=== PATIENT | male | born 1940 | race Caucasian/White ===

== ENCOUNTER 2020-07-30 10:32 | Emergency (ER) | payer MEDICARE, MEDICAID, SELFPAY ==
--- NOTE | 2020-07-30 | CT_ITS ---
EXAMINATION: CT BRAIN CLINICAL INFORMATION: Fall, trauma, headache COMPARISON: Report CT had noncontrast 04/10/2020, images unavailable. TECHNIQUE: Contiguous axial imaging was performed from the skull base to vertex without intravenous administration of contrast. Additional 2-D coronal and sagittal reformatted images are generated on the CT workstation and uploaded to PACS. DOSE LOWERING TECHNIQUES: This CT examination was performed using dose optimization techniques as appropriate, variously including the following: *Automated exposure control *Adjustment of mA and/or kV according to patient size (this includes techniques or standardized protocols for targeted exams where dose is matched to indication/reason for exam; i.e. extremities or head) *Use of iterative reconstruction technique DLP: 751 mGy-cm FINDINGS: There is no intracranial hemorrhage, hematoma, or extra-axial fluid collection. There is mild prominence of the ventricles along with prominent cortical sulci and fissures and cisterns consistent with atrophic changes as noted on prior report. There is no mass effect or edema. The [place]-white matter differentiation appears symmetric. There is no visible acute territorial infarct or mass lesion. The calvarium appears intact. There is no pneumocephalus or orbital emphysema. The visualized sinuses and middle ears and mastoid air cells show no significant mucosal thickening. There are no air-fluid levels. IMPRESSION: No acute intracranial abnormality.
--- NOTE | 2020-07-30 | CT_ITS ---
EXAMINATION: CT CERVICAL SPINE CLINICAL INFORMATION: Fall, trauma, pain COMPARISON: CT cervical spine noncontrast 04/10/2020, report only, images unavailable. TECHNIQUE: Multidetector volumetric CT imaging of the cervical spine is performed without contrast in the axial plane. Additional 2D reformatted coronal and sagittal images are generated on the CT workstation and uploaded to PACS. DOSE LOWERING TECHNIQUES: This CT examination was performed using dose optimization techniques as appropriate, variously including the following: *Automated exposure control *Adjustment of mA and/or kV according to patient size (this includes techniques or standardized protocols for targeted exams where dose is matched to indication/reason for exam; i.e. extremities or head) *Use of iterative reconstruction technique DLP: 633 mGy-cm FINDINGS: There is no vertebral compression fracture, fracture line, spondylolisthesis, or prevertebral soft tissue swelling. The craniocervical junction appears normal. The odontoid appears intact. There is normal cervical lordosis. There are scattered degenerative changes again noted including degenerative changes between anterior arch C1 and the dens and multilevel vertebral body spurring greatest at C4 through C6-C7. There is variable bilateral facet degeneration. There is no apical pneumothorax. IMPRESSION: 1. No acute bony abnormality or prevertebral soft tissue swelling. 2. Multilevel degenerative vertebral spurring and facet degeneration.
[2020-07-30 11:26] VITALS: BP 118/54; PULSE 70; RESP 15; TEMP 37.1; O2SAT 96; BMI 35.8
--- NOTE | 2020-07-30 11:43 | ED_ITS ---
HPI - Fall General Chief Complaint: Fall Stated Complaint: HEAD INJURY, FALL Time Seen by Provider: 07/30/20 11:40 Source: patient and family History of Present Illness HPI Narrative: 80 y/o male with history of DM2, neuropathy, CAD, HTN, presenting s/p fall after he stood up too fast. Hit his head, no LOC. +headache and neck pain. Related Data Allergies Allergy/AdvReac Type Severity Reaction Status Date / Time codeine [CODEINE] Allergy Unknown UNKNOWN Unverified 07/16/20 16:18 Codeine Phosphate Allergy Unknown Uncoded 06/10/20 00:00 lisinopril Allergy Unknown Uncoded 06/10/20 00:00 Review of Systems Constitutional: Constitutional: Denies body ache(s), Denies chills, Denies fatigue, Denies fever(s) and Reports headache(s) Eyes: Eyes: Reports no additional eye complaints ENT: Denies vertigo, Reports headache(s), Reports hearing loss (chronically ) and Reports neck pain Cardiovascular: Cardiovascular: Denies chest pain at rest, Denies chest pain with activity, Denies syncope, Denies rapid heart rate, Reports pedal edema (chronically ), Reports leg edema (chronically ) and Denies dyspnea Respiratory: Respiratory: Denies dyspnea Gastrointestinal: Gastrointestinal: Denies nausea and Denies vomiting Genitourinary: Genitourinary: Denies difficulty urinating and Denies dysuria Musculoskeletal: Musculoskeletal: Reports neck pain and Denies numbness Neurologic: Denies confusion, Denies vertigo, Denies syncope, Reports headach e(s), Denies focal weakness, Denies memory loss and Denies numbness Psychiatric: Psychiatric: Denies confusion and Denies memory loss Endocrine: Endocrine: Denies fatigue Hematologic/Lymphatic: Hematologic/Lymphatic: Denies easy bruising PMFSH Past Medical History Attestation statement: The following information was validated with the patient. Medical History BPH (benign prostatic hyperplasia) CKD (chronic kidney disease) Coronary stent patent Diabetes mellitus, type 2 Dyslipidemia Hypertension Neuropathy associated with endocrine disorder Social History Social History Advance Directives: No Advance Directives Information Provided: No Physical Exam Vital Signs and I&O and Narrative: Vital Signs and I&O: Vital Signs Temp 98.7 F 07/30/20 11:26 Pulse 67 07/30/20 15:08 Resp 14 07/30/20 13:07 BP 122/65 07/30/20 15:08 Pulse Ox 98 07/30/20 13:07 Intake & Output 07/29/20 07/30/20 07/30/20 18:59 06:59 18:59 Weight 100.698 kg Body Mass Index 35.8 Const: General: healthy appearing, comfortable and no acute distress; No confusion Nutritional Appearance: average body habitus Orientation/consciousness: No confusion HENMT: Head: Yes normal to inspection, Yes No palpable skull fracture present, Yes normocephalic and Yes atraumatic Eyes: General: appearance normal, both eyes and all related structures Neck: Neck: Yes normal visual inspection and Yes full ROM Chest: Chest palpation & inspection: normal inspection of the chest and normal palpation of entire chest wall Resp: Effort & Inspection: normal respiratory effort and able to speak in complete sentences Auscultation: clear to auscultation bilaterally Cardio: Rate: regular rate Rhythm: regular rhythm Heart sounds: S1 normal heart sound present and S2 normal heart sound present GI: Inspection: Yes normal to inspection Auscultation: normal bowel sounds Skin: General skin exam: no rashes or lesions noted Trauma: no lacerations or abrasions Neuro: General: No confusion Course Course Hospital Course: CT head/neck done. +Orthostatic VS with feeling of dizziness. Will give 1L IVF and reassess. Awating labs and imaging results Reevaluation(s) Reevaluation #1: CT Head/neck showed no traumatic injury. H/H and renal function at baseline. Getting IVF now and repeat Orthostatic VS. Time: 13:40 Reevaluation #2: s/p 1L IVF. Orthostatics improved. Patient feels improved. He would like to go home. He is no longer dizzy when he stands and he is stable for discharge. Time: 15:32 MDM - Fall Differential Diagnosis Differential diagnosis: Likely fracture and concussion without loss of consciousness Medical Records Attestation: I reviewed the patient's medical records. Lab Data Result diagrams: 07/30/20 12:55 07/30/20 12:55 Labs: Lab Results 07/30/20 07/30/20 07/30/20 Range/Units 12:52 12:55 12:55 WBC 7.3 (4.8-10.8) X10*3/uL RBC 3.48 L (4.60-5.80) X10*6/uL Hgb 11.0 L (14.0-18.0) g/dl Hct 33.1 L (42-52) % MCV 95.1 (80-98) fL MCH 31.6 (27.0-33.0) pg MCHC 33.2 (31.0-36.0) g/dl RDW 12.7 (11.0-16.0) % Plt Count 262 (160-400) X10*3/uL MPV 10.0 (9.4-12.4) fL Immature Gran % (Auto) 0.3 (0.0-0.4) % Neut % (Auto) 71.1 (45-73) % Lymph % (Auto) 14.6 L (20-40) % [place] % (Auto) 11.1 H (2-11) % Eos % (Auto) 2.2 (0-4) % Baso % (Auto) 0.7 (0-2) % Neut # (Auto) 5.2 (2.0-8.3) X10*3/uL Lymph # (Auto) 1.1 L (1.2-4.9) X10*3/uL [place] # (Auto) 0.8 (0.1-1.2) X10*3/uL Eos # (Auto) 0.2 (0.0-0.4) X10*3/uL Baso # (Auto) 0.1 (0.0-0.2) X10*3/uL Abs Immat Gran (auto) 0.02 (0.00-0.03) X10*3/uL Absolute Nucleated RBC 0.000 (0.0-0.012) X10*3/uL Nucleated RBC % (auto) 0.0 (0.0-0.2) /100WBC PT (10.8-13.0) SEC INR (0.9-1.1) APTT (24.1-38.0) SEC Sodium 139 (135-145) mmol/L Potassium 4.1 (3.3-5.1) mmol/l Chloride 100 (96-108) mmol/L Carbon Dioxide 32 H (22-29) mmol/L Anion Gap 11 L (12-20) BUN 52 H (9-16) mg/dL Creatinine 1.50 H (0.5-1.4) mg/dL Estim Creat Clear Calc 44.3 Estimated GFR 45 Random Glucose 109 (60-115) mg/dL Calcium 9.4 (8.4-10.2) mg/dL B-Natriuretic Peptide (<100) pg/mL Urine Color YELLOW Urine Appearance CLEAR Urine pH 6.5 (5.0-8.0) Ur Specific [place] 1.010 (1.005-1.025) Urine Protein NEG (NEG-TRACE) MG/DL Urine Glucose (UA) NEG (NEG) MG/DL Urine Ketones NEG (NEG) MG/DL Urine Blood TRACE (NEG) Urine Nitrite NEG (NEG) Ur Leukocyte Esterase NEG (NEG) Urine RBC 1-4 (0) /HPF Urine WBC 0-2 (0-4) /HPF Ur Squamous Epith Cells 1+ /LPF Urine Bacteria NONE /LPF 07/30/20 07/30/20 Range/Units 12:55 12:56 WBC (4.8-10.8) X10*3/uL RBC (4.60-5.80) X10*6/uL Hgb (14.0-18.0) g/dl Hct (42-52) % MCV (80-98) fL MCH (27.0-33.0) pg MCHC (31.0-36.0) g/dl RDW (11.0-16.0) % Plt Count (160-400) X10*3/uL MPV (9.4-12.4) fL Immature Gran % (Auto) (0.0-0.4) % Neut % (Auto) (45-73) % Lymph % (Auto) (20-40) % [place] % (Auto) (2-11) % Eos % (Auto) (0-4) % Baso % (Auto) (0-2) % Neut # (Auto) (2.0-8.3) X10*3/uL Lymph # (Auto) (1.2-4.9) X10*3/uL [place] # (Auto) (0.1-1.2) X10*3/uL Eos # (Auto) (0.0-0.4) X10*3/uL Baso # (Auto) (0.0-0.2) X10*3/uL Abs Immat Gran (auto) (0.00-0.03) X10*3/uL Absolute Nucleated RBC (0.0-0.012) X10*3/uL Nucleated RBC % (auto) (0.0-0.2) /100WBC PT 13.0 (10.8-13.0) SEC INR 1.1 (0.9-1.1) APTT 33.7 (24.1-38.0) SEC Sodium (135-145) mmol/L Potassium (3.3-5.1) mmol/l Chloride (96-108) mmol/L Carbon Dioxide (22-29) mmol/L Anion Gap (12-20) BUN (9-16) mg/dL Creatinine (0.5-1.4) mg/dL Estim Creat Clear Calc Estimated GFR Random Glucose (60-115) mg/dL Calcium (8.4-10.2) mg/dL B-Natriuretic Peptide 78 (<100) pg/mL Urine Color Urine Appearance Urine pH (5.0-8.0) Ur Specific [place] (1.005-1.025) Urine Protein (NEG-TRACE) MG/DL Urine Glucose (UA) (NEG) MG/DL Urine Ketones (NEG) MG/DL Urine Blood (NEG) Urine Nitrite (NEG) Ur Leukocyte Esterase (NEG) Urine RBC (0) /HPF Urine WBC (0-4) /HPF Ur Squamous Epith Cells /LPF Urine Bacteria /LPF Imaging Data CT scan - head: Radiologist's impression: no acute intracranial injury CT cervical spine: Radiologist's impression: no traumatic injury to cervical spine Discharge Plan Discharge Clinical Impression: Orthostatic dizziness Patient Disposition: Home, Self-Care Instructions: Lightheadedness (ED) Additional Instructions: Follow up with your Primary Care provider. Your blood work and CT scan of your head and neck were unremarkable. You were likely mildly dehydrated, After you were given IV fluids here you felt improved and your vitals signs with position changes improved. Interventions: ED Discharge Assessment Last Done: 07/30/20 16:16 Discharge Date/Time: 07/30/20 16:17 Print Language: Vincentian
[2020-07-30 12:41] VITALS: BP 125/59; PULSE 68
[2020-07-30 12:43] VITALS: BP 125/53; PULSE 67
[2020-07-30 12:45] VITALS: BP 90/45; PULSE 74
[2020-07-30 13:00] LABS: MANUAL DIFF FLAG NO
[2020-07-30 13:07] VITALS: BP 105/48; PULSE 67; RESP 14; O2SAT 98
[2020-07-30 13:11] LABS: Basophils Absolute Auto 0.1 X10*3/uL (0.0-0.2); Basophils Percent Auto 0.7 % (0-2); Eosinophils Absolute Auto 0.2 X10*3/uL (0.0-0.4); Eosinophils Percent Auto 2.2 % (0-4); Hematocrit 33.1 % (42-52); Imm Gran Abs Auto 0.02 X10*3/uL (0.00-0.03); Imm Gran Pct Auto 0.3 % (0.0-0.4); Lymphocytes Absolute Auto 1.1 X10*3/uL (1.2-4.9); Lymphocytes Percent Auto 14.6 % (20-40); Mean Corpuscular HGB Conc 33.2 g/dl (31.0-36.0); Mean Corpuscular Hemoglobin 31.6 pg (27.0-33.0); Mean Corpuscular Volume 95.1 fL (80-98); Monocytes Absolute Auto 0.8 X10*3/uL (0.1-1.2); Monocytes Percent Auto 11.1 % (2-11); Neutrophils Absolute Auto 5.2 X10*3/uL (2.0-8.3); Neutrophils Percent Auto 71.1 % (45-73); Platelet Count 262 X10*3/uL (160-400); Red Blood Count 3.48 X10*6/uL (4.60-5.80); Red Cell Distribution Width 12.7 % (11.0-16.0); White Blood Count 7.3 X10*3/uL (4.8-10.8)
[2020-07-30 13:16] LABS: Glucose Urine UA NEG (NEG); Leukocyte Esterase Urine NEG (NEG); Nitrite Urine NEG (NEG); PH 6.5 (5.0-8.0); UACC Culture Trigger NO; Urine Blood TRACE (NEG); Urine Ketones NEG (NEG); Urine Protein NEG (NEG-TRACE)
[2020-07-30 13:24] LABS: Appearance Urine CLEAR; Color Urine YELLOW
[2020-07-30 13:32] LABS: Anion Gap 11 (12-20); Blood Urea Nitrogen 52 mg/dL (9-16); Calcium 9.4 mg/dL (8.4-10.2); Carbon Dioxide 32 mmol/L (22-29); Chloride 100 mmol/L (96-108); Creatinine Clr Calc Pharmacy 44.3; Estimated Glomerular Filt Rate 45; Glucose Random 109 mg/dL (60-115); Potassium 4.1 mmol/l (3.3-5.1); Sodium 139 mmol/L (135-145)
[2020-07-30 13:37] LABS: INTERNATIONAL NORM RATIO 1.1 (0.9-1.1)
[2020-07-30 13:39] LABS: Partial Thromboplastin Time 33.7 SEC (24.1-38.0)
[2020-07-30 13:39] LABS: B Type Natriuretic Peptide 78 pg/mL (<100)
[2020-07-30 13:44] LABS: UACC CULT NO
[2020-07-30] MEDS: 0.9 % Sodium Chloride 1,000 ML 999 ML IVCONT (13:48)
[2020-07-30 14:35] LABS: Squamous Epithelial Cell Urine 1+ /LPF; WBC Urine 0-2 /HPF (0-4)
[2020-07-30 15:08] VITALS: BP 122/65; PULSE 67
== END 2020-07-30 16:17 | disposition home or self-care (01) ==
PROVIDERS: Physician Assistant; Emergency Provider Emergency Medicine Emergency Medical Services; PCP Internal Medicine
DX: R42 Dizziness and giddiness (principal); R51.9 Headache, unspecified; I10 Essential (primary) hypertension; E11.40 Type 2 diabetes mellitus with diabetic neuropathy, unspecified; I25.10 Atherosclerotic heart disease of native coronary artery without angina pectoris; Z91.81 History of falling
CPT/HCPCS: 36415; 70450; 72125; 80048; 81003; 81015; 83880; 85025; 85610; 85730; 96360; 99284

== ENCOUNTER 2020-08-02 21:40 | Emergency (ER) | payer MEDICARE, MEDICAID, SELFPAY ==
--- NOTE | 2020-08-02 | CT_ITS ---
EXAMINATION: CT ABDOMEN AND PELVIS WITHOUT CONTRAST CLINICAL INFORMATION: Abdominal pain COMPARISON: CT scan abdomen pelvis 12/13/2018 TECHNIQUE: Multidetector volumetric imaging was performed from the superior aspect of the liver through the pubic symphysis. Sagittal and coronal reformatted images were obtained on the technologist's workstation. This CT examination was performed using dose optimization techniques as appropriate, variously including the following: *Automated exposure control *Adjustment of mA and/or kV according to patient size (this includes techniques or standardized protocols for targeted exams where dose is matched to indication/reason for exam; i.e. extremities or head) *Use of iterative reconstruction technique DLP: 817 mGy-cm FINDINGS: LUNG BASES: The visualized lung bases are unremarkable. There are vascular calcification of coronary arteries and thoracic aorta. There is a small hiatal hernia. LIVER, GALLBLADDER, AND BILIARY TREE: The liver is normal in size, shape, and attenuation. No focal hepatic lesion or biliary ductal dilatation is present. Gallbladder is distended to a length of about 12 cm. There is no edema around the gallbladder. No calcified gallstone evident. There is no bile duct dilatation. PANCREAS: Unremarkable. SPLEEN: Unremarkable. ADRENAL GLANDS: Unremarkable. KIDNEYS AND URETERS: There is no renal or ureteral calculi. There is no hydronephrosis. There is an exophytic cyst at the upper pole of the left kidney measuring 2.9 cm. Density measurement of 2 Hounsfield units. There is a 1 cm exophytic cyst at the midpole the right kidney BLADDER: Unremarkable. GASTROINTESTINAL TRACT: There are scattered diverticula of the colon. There is no diverticulitis. There is no bowel wall thickening /edema. There is no bowel obstruction. There is a moderate volume of stool in the colon. The appendix is normal . The small bowel loops are unremarkable. The stomach is normal. There is small hiatal hernia. ABDOMINAL WALL: No significant hernia is appreciated. LYMPH NODES: Normal. VASCULAR: Extensive vascular calcifications throughout the abdomen and the pelvis. There is no aneurysm. PELVIC VISCERA: Prostate enlarged measuring 6.7 cm transverse. OSSEOUS STRUCTURES: Degenerative spondylosis of the spine. IMPRESSION: No acute abnormality CT scan abdomen pelvis.
[2020-08-02 21:46] VITALS: BP 199/92; PULSE 94; RESP 16; TEMP 37.5; O2SAT 96; BMI 35.8
--- NOTE | 2020-08-02 22:14 | ECG_ITS ---
Test Reason : ABDOMINAL PAIN Blood Pressure : / mmHG Vent. Rate : 092 BPM Atrial Rate : 092 BPM P-R Int : 250 ms QRS Dur : 090 ms QT Int : 388 ms P-R-T Axes : 077 024 056 degrees QTc Int : 479 ms Sinus rhythm with 1st degree A-V block Otherwise normal ECG When compared with ECG of 10-APR-2020 08:57, Nonspecific T wave abnormality is no longer Present Referred By: Rosey Hassan Electronically Signed By:JAZMIN URBANO
[2020-08-02] MEDS: ondansetron HCL 4 MG/2 ML VIAL IVPUSH (22:22)
[2020-08-02 22:23] VITALS: BP 157/81; PULSE 93; O2SAT 100
--- NOTE | 2020-08-02 22:29 | ED_ITS ---
HPI - Nausea/Vomiting/Diarrhea General Chief complaint: Nausea/Vomiting/Diarrhea Stated complaint: VOMITING Time Seen by Provider: 08/02/20 22:14 Source: patient and aerial photograph interpreter History of Present Illness HPI Narrative: This is a 80-year-old male who presents with onset of lower abdominal discomfort that he describes as crampy in nature and then subsequent development of nonbloody diarrhea and a few episodes of nausea with nonbloody / nonbilious vomiting. He denies any associated fevers, chills, urinary pain/ burning / frequency, recent travel, sick contacts. In addition, he denies any surgeries in the abdomen. Related Data Previous Rx's Medication Instructions Recorded ondansetron HCl [Zofran] 4 mg PO Q8H PRN #7 tab 08/03/20 Allergies Allergy/AdvReac Type Severity Reaction Status Date / Time codeine [CODEINE] Allergy Unknown UNKNOWN Unverified 07/16/20 16:18 Codeine Phosphate Allergy Unknown Uncoded 06/10/20 00:00 lisinopril Allergy Unknown Uncoded 06/10/20 00:00 Review of Systems Review of Systems: Pertinent positives and negatives as stated in HPI 10 point review of systems otherwise negative. [facility] Past Medical History Source: nursing notes reviewed Medical History BPH (benign prostatic hyperplasia) CKD (chronic kidney disease) Coronary stent patent Diabetes mellitus, type 2 Dyslipidemia Hypertension Neuropathy associated with endocrine disorder Social History Social History Alcohol intake: current Alcohol intake frequency: holidays/special occasions only Alcohol type: beer Smoking Status: Former smoker Smoked in Last 30 Days: No Use of substances other than those prescribed or required for medical reasons: No Advance Directives: No Advance Directives Information Provided: Yes Physical Exam Vital Signs and I&O and Narrative: Vital Signs and I&O: Vital Signs Temp 99.5 F 08/02/20 21:46 Pulse 93 08/02/20 22:23 Resp 16 08/02/20 21:46 BP 166/70 H 08/03/20 00:50 Pulse Ox 99 08/03/20 00:50 Intake & Output 08/02/20 08/03/20 08/03/20 18:59 06:59 18:59 Output Total 453 / 453 Balance -453 / -453 Urine Output (Aver age ml/kg/hr) 0.37 Weight 100.698 kg Output: Output, Urine Am ount 453 / 453 Body Mass Index 35.8 VITAL SIGNS: Reviewed. GENERAL: Well developed, well nourished, in no acute distress. HEAD: Normocephalic/atraumatic, EYES: PERRLA, EOMI intact without pain, no nystagmus/pallor/icterus noted EARS: Ext canals without abnormality, TMs non-bulging and non-erythematous NOSE: Nares patent bilateral OROPHARYNX: no oral lesions noted, posterior pharynx clear and non-erythematous without noted tonsillar enlargement/erythema/exudates NECK: Supple, no adenopathy LUNGS: Normal breath sounds. No adventitious sounds or accessory muscle use. SpO2<> CARDIOVASCULAR: Regular rate and rhythm without noted murmurs, no JVD And chronic bilateral lower 3+ pitting edema (chronic as per patient). ABDOMEN: Obese, Soft, tenderness to palpation along lower abdomen and into left lower quadrant without rebound, mild distended with bowel sounds. No rigidity. No guarding. No palpable masses or hernias noted MUSCULOSKELETAL: No tenderness, deformities, or effusions noted on gross inspection. EXTREMITIES: No cyanosis, clubbing or edema. SKIN: Inspection of the skin reveals no rashes, ulcerations, jaundice, pallor, or petechiae. NEUROLOGIC: Alert and oriented x 4. Strength and sensation to light touch were grossly intact Course Course Hospital Course: This is a 80-year-old male with history and clinical presentation most consistent with diverticulitis, colitis, less likely SBO. Patient's symptoms have gradually resolved and on review investigations the noted leukocytosis appears to be consistent with most likely stress response as the CT of the abdomen pelvis are negative for any acute intra-abdominal pathologies, the urinalysis is negative for UTI and there is no evidence of DK A/HHS. As patient has nausea and vomiting has resolved he will be discharged with presumptive gastroenteritis and provided with a prescription for nausea control until symptoms improve. MDM - Nausea/Vomiting/Diarrhea Lab Data Result diagrams: 08/02/20 22:28 08/02/20 22:28 Labs: Lab Results 08/02/20 08/02/20 08/03/20 Range/Units 22:28 22:28 00:57 WBC 15.2 H (4.8-10.8) X10*3/uL RBC 3.79 L (4.60-5.80) X10*6/uL Hgb 12.0 L (14.0-18.0) g/dl Hct 35.7 L (42-52) % MCV 94.2 (80-98) fL MCH 31.7 (27.0-33.0) pg MCHC 33.6 (31.0-36.0) g/dl RDW 12.8 (11.0-16.0) % Plt Count 248 (160-400) X10*3/uL MPV 10.0 (9.4-12.4) fL Immature Gran % (Auto) 0.4 (0.0-0.4) % Neut % (Auto) 91.8 H (45-73) % Lymph % (Auto) 3.9 L (20-40) % [place] % (Auto) 3.6 (2-11) % Eos % (Auto) 0.0 (0-4) % Baso % (Auto) 0.3 (0-2) % Neut # (Auto) 14.0 H (2.0-8.3) X10*3/uL Lymph # (Auto) 0.6 L (1.2-4.9) X10*3/uL [place] # (Auto) 0.5 (0.1-1.2) X10*3/uL Eos # (Auto) 0.0 (0.0-0.4) X10*3/uL Baso # (Auto) 0.0 (0.0-0.2) X10*3/uL Abs Immat Gran (auto) 0.06 H (0.00-0.03) X10*3/uL Absolute Nucleated RBC 0.000 (0.0-0.012) X10*3/uL Nucleated RBC % (auto) 0.0 (0.0-0.2) /100WBC Smear Tech's Comments VERIFIED Sodium 140 (135-145) mmol/L Potassium 4.3 (3.3-5.1) mmol/l Chloride 103 (96-108) mmol/L Carbon Dioxide 23 (22-29) mmol/L Anion Gap 18 (12-20) BUN 39 H (9-16) mg/dL Creatinine 1.39 (0.5-1.4) mg/dL Estim Creat Clear Calc 47.8 Estimated GFR 49 Random Glucose 203 H D (60-115) mg/dL Calcium 9.7 (8.4-10.2) mg/dL Total Bilirubin 0.2 (0.0-1.0) mg/dL AST 24 (5-37) U/L ALT 15 (0-40) U/L Alkaline Phosphatase 82 (39-117) U/L Total Protein 8.2 H (6.5-8.0) g/dL Albumin 4.2 (3.5-5.0) g/dL Urine Color YELLOW Urine Appearance CLEAR Urine pH 5.5 (5.0-8.0) Ur Specific [place] 1.015 (1.005-1.025) Urine Protein NEG (NEG-TRACE) MG/DL Urine Glucose (UA) 100 H (NEG) MG/DL Urine Ketones NEG (NEG) MG/DL Urine Blood TRACE (NEG) Urine Nitrite NEG (NEG) Ur Leukocyte Esterase NEG (NEG) Urine RBC 0 (0) /HPF Urine WBC 0-2 (0-4) /HPF Ur Squamous Epith Cells 2+ /LPF Urine Bacteria NONE /LPF ECG Data Attestation: I personally reviewed and interpreted this ECG as follows: Prior ECG tracings: available for review (04/10/2020, 06/29/2019) Interpretation: NSR, HR-92, 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 resume all home medications as prescribed. 2. increase fluid intake, especially water. 3. try to avoid extremely cold or hot liquids, spicy food until your symptoms noland ve resolved. 4. follow-up with your primary care provider tomorrow morning by calling the office to set up an appointment. Prescriptions: New ondansetron HCl [Zofran] 4 mg tablet 4 mg PO Q8H PRN (Reason: nausea and vomiting) Qty: 7 RF: 0 Referrals: Pushpa Ruvalcaba MD [Primary Care Provider] - 2 days ( Call tomorrow morning to set up an appointment for further outpatient management.) Interventions: ED Discharge Assessment Last Done: 08/03/20 01:22 Discharge Date/Time: 08/03/20 01:22 Print Language: German
[2020-08-02 22:42] VITALS: O2SAT 99
[2020-08-02 22:43] LABS: Basophils Percent Auto 0.3 % (0-2); Hematocrit 35.7 % (42-52); Imm Gran Abs Auto 0.06 X10*3/uL (0.00-0.03); Imm Gran Pct Auto 0.4 % (0.0-0.4); Lymphocytes Absolute Auto 0.6 X10*3/uL (1.2-4.9); Lymphocytes Percent Auto 3.9 % (20-40); MANUAL DIFF FLAG SCAN; Mean Corpuscular HGB Conc 33.6 g/dl (31.0-36.0); Mean Corpuscular Hemoglobin 31.7 pg (27.0-33.0); Mean Corpuscular Volume 94.2 fL (80-98); Monocytes Absolute Auto 0.5 X10*3/uL (0.1-1.2); Monocytes Percent Auto 3.6 % (2-11); Neutrophils Percent Auto 91.8 % (45-73); Platelet Count 248 X10*3/uL (160-400); Red Blood Count 3.79 X10*6/uL (4.60-5.80); Red Cell Distribution Width 12.8 % (11.0-16.0); SCAN SMEAR FLAG 1; White Blood Count 15.2 X10*3/uL (4.8-10.8)
[2020-08-02 23:04] LABS: SLIDE REVIEW VERIFIED
--- NOTE | 2020-08-02 23:10 | PC.NURSE ---
Pt's daughter Sera Weinstein will picker machine operator pt at d/c. Phone number:
[2020-08-02 23:20] LABS: Alanine Aminotransferase 15 U/L (0-40); Albumin Level 4.2 g/dL (3.5-5.0); Alkaline Phosphatase 82 U/L (39-117); Anion Gap 18 (12-20); Aspartate Amino Transferase 24 U/L (5-37); Bilirubin Total 0.2 mg/dL (0.0-1.0); Blood Urea Nitrogen 39 mg/dL (9-16); Calcium 9.7 mg/dL (8.4-10.2); Carbon Dioxide 23 mmol/L (22-29); Chloride 103 mmol/L (96-108); Creatinine Clr Calc Pharmacy 47.8; Estimated Glomerular Filt Rate 49; Glucose Random 203 mg/dL (60-115); Potassium 4.3 mmol/l (3.3-5.1); Sodium 140 mmol/L (135-145); Total Protein 8.2 g/dL (6.5-8.0)
--- NOTE | 2020-08-02 23:21 | PC.NURSE ---
pt arrives barry x3 with equal and non labored rr. pt skin wpd. pt amb[facility] to [facility] via wheelchair. pt states he was seen here last week. pt lined and labbed medicated with iv zofran for complaints of nausea. no active vomitting since arrival. pt to ct swcan via stretcher.
[2020-08-03 00:50] VITALS: BP 166/70; O2SAT 99
[2020-08-03 01:06] LABS: Glucose Urine UA 100 MG/DL (NEG); Leukocyte Esterase Urine NEG (NEG); Nitrite Urine NEG (NEG); PH 5.5 (5.0-8.0); Specific Gravity - Urine 1.015 (1.005-1.025); Urine Blood TRACE (NEG); Urine Ketones NEG (NEG); Urine Protein NEG (NEG-TRACE)
--- NOTE | 2020-08-03 01:06 | PC.NURSE ---
pending urine sample results. if normal will d/c patient home
[2020-08-03 01:09] LABS: Appearance Urine CLEAR; Color Urine YELLOW
[2020-08-03 01:13] LABS: RBC Urine 0 /HPF (0); Squamous Epithelial Cell Urine 2+ /LPF; WBC Urine 0-2 /HPF (0-4)
== END 2020-08-03 01:22 | disposition home or self-care (01) ==
PROVIDERS: Emergency Provider Student in an Organized Health Care Education/Training Program; PCP Internal Medicine
DX: K52.9 Noninfective gastroenteritis and colitis, unspecified (principal); E11.22 Type 2 diabetes mellitus with diabetic chronic kidney disease; I13.0 Hypertensive heart and chronic kidney disease with heart failure and stage 1 through stage 4 chronic kidney disease, or unspecified chronic kidney disease; N18.9 Chronic kidney disease, unspecified; I50.89 Other heart failure
CPT/HCPCS: 36415; 51798; 74176; 80053; 81001; 85025; 93005; 93010; 96374; 99285; J2405

== ENCOUNTER 2020-08-12 13:03 | Outpatient (REF) | payer MEDICARE, MEDICAID, SELFPAY ==
--- NOTE | 2020-08-12 14:39 | XR_ITS ---
EXAMINATION: XR CHEST CLINICAL INFORMATION: Diastolic Congestive heart failure. COMPARISON: Chest x-ray 06/29/2019 TECHNIQUE: 2 views of the chest were obtained. FINDINGS: Lungs are clear. No pulmonary vascular congestion. There is no pleural effusion. The heart size is normal. The cardiac and mediastinal contours are normal. There are calcifications of the thoracic aorta. There are multilevel degenerative changes of dorsal spine. IMPRESSION: Unremarkable examination.
[2020-08-12 15:51] LABS: Anion Gap 13 (12-20); Blood Urea Nitrogen 55 mg/dL (9-16); Calcium 9.4 mg/dL (8.4-10.2); Carbon Dioxide 34 mmol/L (22-29); Chloride 94 mmol/L (96-108); Estimated Glomerular Filt Rate 42; Glucose Random 161 mg/dL (60-115); Potassium 3.2 mmol/l (3.3-5.1); Sodium 138 mmol/L (135-145)
[2020-08-12 15:57] LABS: B Type Natriuretic Peptide 37 pg/mL (<100)
== END 2020-08-12 13:04 | disposition home or self-care (01) ==
LOC: HO.LAB 13:03
PROVIDERS: PCP Internal Medicine; Referring Provider Internal Medicine; Visit Provider Nurse Practitioner Family
DX: R00.2 Palpitations (principal); I13.0 Hypertensive heart and chronic kidney disease with heart failure and stage 1 through stage 4 chronic kidney disease, or unspecified chronic kidney disease; N18.9 Chronic kidney disease, unspecified; I50.30 Unspecified diastolic (congestive) heart failure; I25.10 Atherosclerotic heart disease of native coronary artery without angina pectoris; Z95.5 Presence of coronary angioplasty implant and graft; Z79.82 Long term (current) use of aspirin; Z79.899 Other long term (current) drug therapy
CPT/HCPCS: 71046; 80048; 83880; 99214

== ENCOUNTER → 2020-08-27 12:46 | Outpatient (REF) | payer MEDICARE, MEDICAID, SELFPAY ==
--- NOTE | 2020-08-27 12:53 | ECG_ITS ---
Hook-up date: 2020-08-27 13:05:00 Duration: 26:05:00 Test Indications: PALPITATIONS Medications: 158374 QRS complexes 15 Ventricular ectopics which represent <1 % of total QRS comp. 16 Supraventricular ectopics which represent <1 % of total QRS comp. * Paced QRS complexs which represent % of total QRS comp. VENTRICULAR ECTOPY 15 Isolated 0 Bigeminal Cycles 0 Couplets 0 Runs 0 Beats in Runs * Beats LONGEST at * BPM at :: -- * Beats FASTEST at * BPM at :: -- SUPRAVENTRICULAR ECTOPY 14 Isolated 1 Couplets 0 Runs 0 Beats in Runs * Beats LONGEST at * BPM at :: -- * Beats FASTEST at * BPM at :: -- HEART RATES 57 MIN at 23:36:46 2020-08-27 70 AVG 93 MAX at 11:42:49 2020-08-28 LONGEST RR 1.1440 secs at 22:32:29 2020-08-27 S-T LEVELS Channel 1 - 128 mm at 13:05:00 2020-08-27 - 128 mm at 13:05:00 2020-08-27 Channel 2 - 128 mm at 13:05:00 2020-08-27 - 128 mm at 13:05:00 2020-08-27 Channel 3 - 128 mm at 03:22:41 -- - 128 mm at 03:22:41 Basic rhythm Normal sinus rhythm No long pause or profound bradycardia Rare ectopics Patient did not report any symptoms in the diary Referred By: Gali Meza Overread By: JEANIE FONTENOT MD
== END ==
LOC: HO.CARD 12:46
PROVIDERS: Visit Provider Nurse Practitioner Family
DX: R00.2 Palpitations (principal)
CPT/HCPCS: 93225; 93226

== ENCOUNTER 2020-09-03 09:57 | Outpatient (REF) | payer MEDICARE, MEDICAID, SELFPAY ==
[2020-09-03 12:02] LABS: MANUAL DIFF FLAG NO
[2020-09-03 12:10] LABS: Basophils Absolute Auto 0.1 X10*3/uL (0.0-0.2); Eosinophils Absolute Auto 0.2 X10*3/uL (0.0-0.4); Eosinophils Percent Auto 3.4 % (0-4); Hemoglobin 11.5 g/dl (14.0-18.0); Imm Gran Abs Auto 0.02 X10*3/uL (0.00-0.03); Imm Gran Pct Auto 0.3 % (0.0-0.4); Lymphocytes Absolute Auto 1.2 X10*3/uL (1.2-4.9); Lymphocytes Percent Auto 19.6 % (20-40); Mean Corpuscular HGB Conc 32.9 g/dl (31.0-36.0); Mean Corpuscular Hemoglobin 31.2 pg (27.0-33.0); Mean Corpuscular Volume 94.9 fL (80-98); Mean Platelet Volume 10.5 fL (9.4-12.4); Monocytes Absolute Auto 0.6 X10*3/uL (0.1-1.2); Monocytes Percent Auto 9.9 % (2-11); Neutrophils Absolute Auto 4.1 X10*3/uL (2.0-8.3); Neutrophils Percent Auto 65.8 % (45-73); Platelet Count 285 X10*3/uL (160-400); Red Blood Count 3.69 X10*6/uL (4.60-5.80); Red Cell Distribution Width 12.7 % (11.0-16.0); White Blood Count 6.2 X10*3/uL (4.8-10.8)
[2020-09-03 13:34] LABS: Alanine Aminotransferase 11 U/L (0-40); Albumin Level 3.8 g/dL (3.5-5.0); Alkaline Phosphatase 93 U/L (39-117); Anion Gap 14 (12-20); Aspartate Amino Transferase 16 U/L (5-37); Bilirubin Total < 0.2 mg/dL (0.0-1.0); Blood Urea Nitrogen 33 mg/dL (9-16); Calcium 8.6 mg/dL (8.4-10.2); Carbon Dioxide 33 mmol/L (22-29); Chloride 99 mmol/L (96-108); Cholesterol 197 mg/dL; Estimated Glomerular Filt Rate 54; Glucose Fasting 142 mg/dL (60-99); HDL Cholesterol 44 mg/dL; LDL Cholesterol Calculated 115 mg/dl; Sodium 142 mmol/L (135-145); Total Protein 7.3 g/dL (6.5-8.0); Triglycerides 191 mg/dL
[2020-09-03 17:42] LABS: Estimated Average Glucose 143 mg/dL; Hemoglobin A1c % 6.6 %
== END 2020-09-03 09:58 | disposition home or self-care (01) ==
LOC: HO.LAB 09:57
PROVIDERS: Visit Provider Internal Medicine
DX: E11.22 Type 2 diabetes mellitus with diabetic chronic kidney disease (principal); N18.30 Chronic kidney disease, stage 3 unspecified; I50.30 Unspecified diastolic (congestive) heart failure; R60.0 Localized edema
CPT/HCPCS: 36415; 80053; 80061; 83036; 85025

== ENCOUNTER → 2020-09-14 10:59 | Outpatient (BNVA) | payer MEDICARE, MEDICAID, SELFPAY | PROVIDERS: PCP Internal Medicine; Referring Provider Internal Medicine; Visit Provider Nurse Practitioner Family | DX: I13.0 Hypertensive heart and chronic kidney disease with heart failure and stage 1 through stage 4 chronic kidney disease, or unspecified chronic kidney disease (principal); I50.30 Unspecified diastolic (congestive) heart failure; N18.9 Chronic kidney disease, unspecified; R00.2 Palpitations; I25.10 Atherosclerotic heart disease of native coronary artery without angina pectoris; I25.2 Old myocardial infarction; Z95.5 Presence of coronary angioplasty implant and graft; Z79.02 Long term (current) use of antithrombotics/antiplatelets; Z79.82 Long term (current) use of aspirin; Z79.899 Other long term (current) drug therapy | CPT/HCPCS: 99212 ==

== ENCOUNTER → 2020-09-15 13:24 | Outpatient (BNVA) | payer MEDICARE, MEDICAID, SELFPAY | PROVIDERS: PCP Internal Medicine; Visit Provider Nurse Practitioner Gerontology | DX: E11.65 Type 2 diabetes mellitus with hyperglycemia (principal); E11.40 Type 2 diabetes mellitus with diabetic neuropathy, unspecified; E11.22 Type 2 diabetes mellitus with diabetic chronic kidney disease; I12.9 Hypertensive chronic kidney disease with stage 1 through stage 4 chronic kidney disease, or unspecified chronic kidney disease; N18.9 Chronic kidney disease, unspecified; Z79.4 Long term (current) use of insulin; E78.5 Hyperlipidemia, unspecified | CPT/HCPCS: 82947; 99212 ==

== ENCOUNTER → 2020-09-29 14:01 | Outpatient (BNVA) | payer MEDICARE, MEDICAID, SELFPAY | PROVIDERS: PCP Internal Medicine; Referring Provider Internal Medicine; Visit Provider Internal Medicine Endocrinology, Diabetes & Metabolism | DX: E11.65 Type 2 diabetes mellitus with hyperglycemia (principal); E11.40 Type 2 diabetes mellitus with diabetic neuropathy, unspecified; E11.21 Type 2 diabetes mellitus with diabetic nephropathy; Z79.4 Long term (current) use of insulin; E78.5 Hyperlipidemia, unspecified; I10 Essential (primary) hypertension | CPT/HCPCS: 82947; 99212 ==

== ENCOUNTER 2020-12-04 10:13 | Outpatient (REF) | payer MEDICARE, MEDICAID, SELFPAY | END 2020-12-04 10:14 | disposition home or self-care (01) | LOC: HO.LAB 10:13 | PROVIDERS: PCP Internal Medicine; Visit Provider Internal Medicine | DX: Z13.89 Encounter for screening for other disorder (principal) | CPT/HCPCS: 36415; 80053; 80061; 83036; 85025 ==

== ENCOUNTER 2020-12-05 | Outpatient (REF) | payer MEDICARE, MEDICAID, SELFPAY ==
[2020-12-04 10:48] LABS: MANUAL DIFF FLAG NO
[2020-12-04 10:51] LABS: Basophils Absolute Auto 0.1 X10*3/uL (0.0-0.2); Basophils Percent Auto 1.1 % (0-2); Eosinophils Absolute Auto 0.2 X10*3/uL (0.0-0.4); Hematocrit 35.9 % (42-52); Hemoglobin 11.8 g/dl (14.0-18.0); Imm Gran Abs Auto 0.03 X10*3/uL (0.00-0.03); Imm Gran Pct Auto 0.4 % (0.0-0.4); Lymphocytes Absolute Auto 1.3 X10*3/uL (1.2-4.9); Lymphocytes Percent Auto 15.5 % (20-40); Mean Corpuscular HGB Conc 32.9 g/dl (31.0-36.0); Mean Corpuscular Hemoglobin 28.4 pg (27.0-33.0); Mean Corpuscular Volume 86.5 fL (80-98); Mean Platelet Volume 10.4 fL (9.4-12.4); Monocytes Absolute Auto 0.9 X10*3/uL (0.1-1.2); Monocytes Percent Auto 10.4 % (2-11); Neutrophils Percent Auto 70.6 % (45-73); Platelet Count 347 X10*3/uL (160-400); Red Blood Count 4.15 X10*6/uL (4.60-5.80); Red Cell Distribution Width 13.5 % (11.0-16.0); White Blood Count 8.5 X10*3/uL (4.8-10.8)
[2020-12-04 11:16] LABS: Estimated Average Glucose 200 mg/dL; Hemoglobin A1c % 8.6 %
[2020-12-04 11:24] LABS: Alanine Aminotransferase 10 U/L (0-40); Albumin Level 3.8 g/dL (3.5-5.0); Alkaline Phosphatase 99 U/L (39-117); Anion Gap 15 (12-20); Aspartate Amino Transferase 15 U/L (5-37); Bilirubin Total 0.3 mg/dL (0.0-1.0); Blood Urea Nitrogen 51 mg/dL (9-16); Calcium 9.2 mg/dL (8.4-10.2); Carbon Dioxide 36 mmol/L (22-29); Chloride 93 mmol/L (96-108); Cholesterol 194 mg/dL; Estimated Glomerular Filt Rate 48; Glucose Random 168 mg/dL (60-115); HDL Cholesterol 42 mg/dL; LDL Cholesterol Calculated 118 mg/dl; Potassium 2.9 mmol/L (3.3-5.1); Sodium 141 mmol/L (135-145); Total Protein 7.6 g/dL (6.5-8.0); Triglycerides 170 mg/dL
[2020-12-05 10:48] LABS: Creatinine Urine 61.55 mg/dL; Microalbum/Creatinine Ratio Ur 37.3 ug/mg cr
== END 2020-12-05 00:01 | disposition home or self-care (01) ==
LOC: HO.LNP
PROVIDERS: Visit Provider Internal Medicine
DX: I12.9 Hypertensive chronic kidney disease with stage 1 through stage 4 chronic kidney disease, or unspecified chronic kidney disease (principal); E11.65 Type 2 diabetes mellitus with hyperglycemia; E11.22 Type 2 diabetes mellitus with diabetic chronic kidney disease; N18.9 Chronic kidney disease, unspecified
CPT/HCPCS: 36415; 80053; 80061; 82043; 83036; 85025; 87086

== ENCOUNTER 2020-12-30 12:47 | Outpatient (REF) | payer MEDICARE, MEDICAID, SELFPAY ==
[2020-12-30 15:55] LABS: Anion Gap 13 (12-20); Blood Urea Nitrogen 40 mg/dL (9-16); Calcium 9.6 mg/dL (8.4-10.2); Carbon Dioxide 33 mmol/L (22-29); Chloride 95 mmol/L (96-108); Estimated Glomerular Filt Rate 50; Glucose Random 140 mg/dL (60-115); Sodium 138 mmol/L (135-145)
== END 2020-12-30 12:48 | disposition home or self-care (01) ==
LOC: HO.LAB 12:47
PROVIDERS: PCP Internal Medicine; Visit Provider Internal Medicine Endocrinology, Diabetes & Metabolism
DX: E11.65 Type 2 diabetes mellitus with hyperglycemia (principal); E11.22 Type 2 diabetes mellitus with diabetic chronic kidney disease; I12.9 Hypertensive chronic kidney disease with stage 1 through stage 4 chronic kidney disease, or unspecified chronic kidney disease; N18.9 Chronic kidney disease, unspecified; E11.40 Type 2 diabetes mellitus with diabetic neuropathy, unspecified; Z79.4 Long term (current) use of insulin; E78.5 Hyperlipidemia, unspecified; Z79.899 Other long term (current) drug therapy
CPT/HCPCS: 36415; 80048; 82947; 99212

== ENCOUNTER 2021-02-05 13:50 | Outpatient (REF) | payer MEDICARE, MEDICAID, SELFPAY | END 2021-02-05 13:51 | disposition home or self-care (01) | LOC: HO.LAB 13:50 | PROVIDERS: Visit Provider Internal Medicine | DX: Z20.822 Contact with and (suspected) exposure to COVID-19 (principal) | CPT/HCPCS: C9803; U0003; U0005 ==

== ENCOUNTER 2021-02-22 09:49 | Outpatient (REF) | payer MEDICARE, MEDICAID, SELFPAY ==
[2021-02-22 10:34] LABS: MANUAL DIFF FLAG NO
[2021-02-22 10:48] LABS: Basophils Percent Auto 0.5 % (0-2); Eosinophils Absolute Auto 0.1 X10*3/uL (0.0-0.4); Eosinophils Percent Auto 1.6 % (0-4); Hematocrit 33.2 % (42-52); Hemoglobin 10.4 g/dl (14.0-18.0); Imm Gran Abs Auto 0.03 X10*3/uL (0.00-0.03); Imm Gran Pct Auto 0.4 % (0.0-0.4); Lymphocytes Absolute Auto 1.3 X10*3/uL (1.2-4.9); Lymphocytes Percent Auto 16.9 % (20-40); Mean Corpuscular HGB Conc 31.3 g/dl (31.0-36.0); Mean Corpuscular Hemoglobin 26.2 pg (27.0-33.0); Mean Corpuscular Volume 83.6 fL (80-98); Mean Platelet Volume 9.9 fL (9.4-12.4); Monocytes Absolute Auto 0.7 X10*3/uL (0.1-1.2); Monocytes Percent Auto 9.2 % (2-11); Neutrophils Absolute Auto 5.4 X10*3/uL (2.0-8.3); Neutrophils Percent Auto 71.4 % (45-73); Platelet Count 298 X10*3/uL (160-400); Red Blood Count 3.97 X10*6/uL (4.60-5.80); Red Cell Distribution Width 15.2 % (11.0-16.0); White Blood Count 7.6 X10*3/uL (4.8-10.8)
[2021-02-22 11:27] LABS: Anion Gap 14 (12-20); Blood Urea Nitrogen 39 mg/dL (9-16); Calcium 9.5 mg/dL (8.4-10.2); Carbon Dioxide 32 mmol/L (22-29); Chloride 99 mmol/L (96-108); Estimated Glomerular Filt Rate 46; Potassium 3.1 mmol/L (3.3-5.1); Sodium 142 mmol/L (135-145)
== END 2021-02-22 09:50 | disposition home or self-care (01) ==
LOC: HO.LAB 09:49
PROVIDERS: PCP Internal Medicine; Visit Provider Internal Medicine Hypertension Specialist
DX: I12.9 Hypertensive chronic kidney disease with stage 1 through stage 4 chronic kidney disease, or unspecified chronic kidney disease (principal); E11.22 Type 2 diabetes mellitus with diabetic chronic kidney disease; N18.30 Chronic kidney disease, stage 3 unspecified; R80.8 Other proteinuria; E11.21 Type 2 diabetes mellitus with diabetic nephropathy
CPT/HCPCS: 36415; 80051; 82310; 82565; 84520; 85025

== ENCOUNTER → 2021-03-15 12:05 | Outpatient (BNVA) | payer MEDICARE, MEDICAID, SELFPAY | PROVIDERS: PCP Internal Medicine; Visit Provider Internal Medicine | DX: I50.32 Chronic diastolic (congestive) heart failure (principal); I25.10 Atherosclerotic heart disease of native coronary artery without angina pectoris; I44.0 Atrioventricular block, first degree; I10 Essential (primary) hypertension; E11.8 Type 2 diabetes mellitus with unspecified complications | CPT/HCPCS: 99212 ==

== ENCOUNTER 2021-04-11 19:31 | Emergency (ER) | payer MEDICARE, MEDICAID, SELFPAY ==
--- NOTE | ~2021-04-11 | XR_ITS ---
EXAMINATION: XR CHEST CLINICAL INFORMATION: Fever COMPARISON: Chest x-ray of 08/12/2020, 06/29/2019 and 11/04/2018. TECHNIQUE: Frontal view of the chest was obtained. FINDINGS: The cardiomediastinal silhouette is unchanged with the normal cardiac size for the technique. The lungs are symmetrically well expanded. No focal consolidation, and is of overt pulmonary edema or pleural effusions are seen. No pneumothorax. Regional skeleton is intact. Visualized upper abdomen is unremarkable. XR/XR chest 1V IMPRESSION: No radiographic evidence of pneumonia. Overall appearance of the lung parenchyma is similar to that seen on the previous chest x-rays including x-ray of 11/04/2018.
--- NOTE | ~2021-04-11 | CT_ITS ---
EXAMINATION: CT ABDOMEN AND PELVIS WITHOUT CONTRAST CLINICAL INFORMATION: Abdominal pain with vomiting COMPARISON: 08/02/2020 TECHNIQUE: Multidetector volumetric imaging was performed from the superior aspect of the liver through the pubic symphysis. Sagittal and coronal reformatted images were obtained on the technologist's workstation. This CT examination was performed using dose optimization techniques as appropriate, variously including the following: *Automated exposure control *Adjustment of mA and/or kV according to patient size (this includes techniques or standardized protocols for targeted exams where dose is matched to indication/reason for exam; i.e. extremities or head) *Use of iterative reconstruction technique DLP: 1874 mGy-cm FINDINGS: Suboptimal assessment in some regions due to motion artifact. LUNG BASES: The visualized lung bases are unremarkable. Coronary artery calcifications are present. LIVER, GALLBLADDER, AND BILIARY TREE: The liver is normal in size, shape, and attenuation. No focal hepatic lesion or biliary ductal dilatation is present. The gallbladder is grossly unremarkable. PANCREAS: Unremarkable. SPLEEN: Unremarkable. ADRENAL GLANDS: Unremarkable. KIDNEYS AND URETERS: The kidneys are normal in size, shape, and attenuation. No hydronephrosis, hydroureter, or obstructing calculi seen. Tiny left upper pole renal calculus noted. Exophytic cyst redemonstrated off the upper left kidney. No perinephric stranding. BLADDER: Unremarkable. GASTROINTESTINAL TRACT: Colonic diverticulosis is noted. The small and large bowel are otherwise unremarkable without evidence of obstruction or pericolonic inflammatory change. The appendix is grossly unremarkable accounting for motion artifact. No free fluid or free air is seen. ABDOMINAL WALL: No significant hernia is appreciated. LYMPH NODES: Normal. VASCULAR: There is atherosclerotic calcification along the aorta and iliac arteries. PELVIC VISCERA: The prostate gland is enlarged, measuring 7.3 cm in transverse diameter. OSSEOUS STRUCTURES: Degenerative changes are noted in the spine. CT/CT abdomen pelvis wo con IMPRESSION: Suboptimal assessment due to patient motion artifact. No acute findings identified in the abdomen/pelvis. Enlarged prostate gland redemonstrated.
[2021-04-11 19:53] VITALS: BP 149/67; PULSE 107; RESP 20; TEMP 39; O2SAT 96; BMI 36.2
[2021-04-11] MEDS: Acetaminophen 325 MG TABLET 650 MG PO (20:03)
--- NOTE | 2021-04-11 20:14 | ED_ITS ---
HPI - General Adult General Chief complaint: General Medical Stated complaint: N/V Time Seen by Provider: 04/11/21 20:14 Source: patient Mode of arrival: ambulatory Limitations: language barrier History of Present Illness HPI narrative: Patient's history of diabetes and coronary artery disease noticed diffuse abdominal pain with vomiting x2 today in the evening with chills feeling weak and dizzy no diarrhea noticed to have temperature of 102.2 degrees in the ER patient denies any urine complaints no history of kidney stone patient had normal bowel movement earlier Related Data Home Medications Medication Instructions Recorded Confirmed aspirin 81 mg tablet,delayed 81 mg PO DAILY 08/12/20 03/15/21 release metolazone 2.5 mg tablet 2.5 mg PO Q OTHER DAY tab 08/12/20 03/15/21 pantoprazole 40 mg tablet,delayed 40 mg PO DAILY 08/12/20 03/15/21 release rosuvastatin 40 mg tablet 40 mg PO DAILY 08/12/20 03/15/21 blood sugar diagnostic #10 ea 09/15/20 03/15/21 insulin syringe-needle U-100 0.5 #10 ea 09/15/20 03/15/21 mL 31 gauge x 03/14 metoprolol succinate 100 mg 100 mg PO DAILY 09/15/20 03/15/21 tablet,extended release 24 hr pen needle, diabetic 32 gauge x #50 ea 09/15/20 03/15/21 amitriptyline 25 mg tablet 50 mg PO BEDTIME 12/30/20 03/15/21 insulin regular hum U-500 conc See Rx Instructions SUBCUT .3 12/30/20 03/15/21 times a day ml phenytoin sodium extended 200 mg 200 mg PO BID cap 03/15/21 03/15/21 capsule pregabalin 75 mg capsule 75 mg PO BID cap 03/15/21 03/15/21 Previous Rx's Medication Instructions Recorded ondansetron HCl [Zofran] 4 mg PO Q8H PRN #7 tab 08/03/20 isosorbide mononitrate 30 mg 30 mg PO DAILY 30 Days #30 tab 08/26/20 tablet,extended release 24 hr tamsulosin 0.4 mg capsule 0.4 mg PO DAILY 90 Days #90 cap 10/01/20 pen needle, diabetic 32 gauge x #100 ea 02/09/21 5/32 furosemide 80 mg tablet 80 mg PO BID #180 tab 12/29/20 nitroglycerin 0.4 mg sublingual 0.4 mg SUBLINGUAL .COMPLEX #75 tab 02/19/21 tablet Allergies Allergy/AdvReac Type Severity Reaction Status Date / Time codeine [CODEINE] Allergy Unknown UNKNOWN Verified 03/15/21 12:35 lisinopril Allergy Unknown unknown Uncoded 03/15/21 12:35 Review of Systems Review of Systems: Constitutional : No Weight loss, ++ Fever, ++Chills ENT/Mouth : No sore throat, No Rhinorrhea Eyes: No Eye Pain, No Swelling Cardiovascular : No Chest Pain, no palpitations Respiratory : No Cough, No Sputum, no shortness of breath Gastrointestinal : + Nausea, + Vomiting, No Diarrhea, No abdominal Pain, no black stools Genitourinary : No Dysuria, No Urinary Frequency Musculoskeletal : No joint pain, No Myalgias, No Joint Swelling Skin : No Skin Lesions, No rash Neuro : No Weakness, No Numbness, No Dizziness, No Headache Psych : No Anxiety/Panic, No Depression Heme/Lymph: No Bruising, No Lymphadenopathy Endocrine : No Polyuria, No Polydipsia All other systems reviewed and are negative [facility] Past Medical History Medical History (HFpEF) heart failure with preserved ejection fraction BPH (benign prostatic hyperplasia) CAD (coronary artery disease) CHF (congestive heart failure) CKD (chronic kidney disease) Coronary stent patent Diabetes mellitus, type 2 Diabetic nephropathy associated with type 2 diabetes mellitus Diabetic neuropathy associated with type 2 diabetes mellitus Dyslipidemia Epilepsy Hypertension Hypokalemia Neuropathy associated with endocrine disorder Secondary hyperparathyroidism Type 2 diabetes mellitus with hyperglycemia, with long-term current use of insulin Surgical History Hx of cardiac cath Stented coronary artery Family History Family History Father Diabetes CVD (cardiovascular disease) Mother Diabetes Brother Diabetes Son Thyroid disease Lung disease Psoriasis HTN (hypertension) Social History Social History Household Members: Spouse Alcohol intake: current Alcohol intake frequency: holidays/special occasions only Alcohol type: beer Advance Directives: No Advance Directives Information Provided: Yes Physical Exam Vital Signs: Vital Signs: Last Vital Signs Temp 99 F 04/12/21 00:37 Pulse 92 04/12/21 00:37 Resp 18 04/12/21 00:37 BP 121/67 04/12/21 00:37 Pulse Ox 94 04/12/21 00:37 Body Mass Index 36.2 Appearance: Alert. Oriented X3. No acute distress. Febrile Eyes: PERRLA, No Nystagmus ENT: Pharynx normal. Oral Mucosa moist Neck: Normal inspection. Neck supple. CVS: Normal heart rate and rhythm. Pulses normal. Respiratory: No respiratory distress. Equal air entry bilateral, no wheezing/rales/rhonchi Abdomen: Soft and diffuse tenderness no rebound tenderness or guarding, Bowel sounds are present, no mass palpable, no CVA tenderness Rectal: enlarged prostate , nontender Skin: Skin warm and dry. Normal skin color. Normal skin turgor. Extremities: No lower extremity edema. No calf tenderness Neuro: Oriented X 3. No motor deficit. No sensory deficit.No cerebellar signs , cranial nerves II-XII intact Medical Decision Making MDM Narrative Medical decision making narrative: Patient with fever, vomiting no acute abdomen , CT scan abdomen negative chest x-ray negative COVID negative etiology of fever not clear likely viral patient at this time feeling much better taking p.o. fluids will discharge patient home Lab Data Lab results reviewed: Yes I reviewed the patient's lab results. Result diagrams: 04/11/21 21:32 04/11/21 21:32 Labs: Lab Results 04/11/21 04/11/21 04/11/21 Range/Units 21:13 21:32 21:32 WBC 15.1 H (4.8-10.8) X10*3/uL RBC 4.15 L (4.60-5.80) X10*6/uL Hgb 10.6 L (14.0-18.0) g/dl Hct 33.4 L (42-52) % MCV 80.5 (80-98) fL MCH 25.5 L (27.0-33.0) pg MCHC 31.7 (31.0-36.0) g/dl RDW 16.3 H (11.0-16.0) % Plt Count 313 (160-400) X10*3/uL MPV 10.3 (9.4-12.4) fL Immature Gran % (Auto) 0.7 H (0.0-0.4) % Neut % (Auto) 88.8 H (45-73) % Lymph % (Auto) 1.2 L (20-40) % [place] % (Auto) 8.5 (2-11) % Eos % (Auto) 0.7 (0-4) % Baso % (Auto) 0.1 (0-2) % Lymph # (Auto) 0.2 L (1.2-4.9) X10*3/uL [place] # (Auto) 1.3 H (0.1-1.2) X10*3/uL Eos # (Auto) 0.1 (0.0-0.4) X10*3/uL Baso # (Auto) 0.0 (0.0-0.2) X10*3/uL Abs Immat Gran (auto) 0.10 H (0.00-0.03) X10*3/uL Absolute Neuts (auto) 13.4 H (2.0-8.3) X10*3/uL Absolute Nucleated RBC 0.000 (0.0-0.012) X10*3/uL Nucleated RBC % (auto) 0.0 (0.0-0.2) /100WBC Sodium 143 (135-145) mmol/L Potassium 2.8 L (3.3-5.1) mmol/L Chloride 102 (96-108) mmol/L Carbon Dioxide 31 H (22-29) mmol/L Anion Gap 13 (12-20) BUN 45 H (9-16) mg/dL Creatinine 1.54 H (0.5-1.4) mg/dL Estim Creat Clear Calc 41.3 Estimated GFR 44 Random Glucose 70 D (60-115) mg/dL Lactic Acid (0.5-2.0) mmol/L Lactic Acid Fup @ 2Hr (0.5-2.0) mmol/L Calcium 8.9 D (8.4-10.2) mg/dL Total Bilirubin (0.0-1.0) mg/dL Direct Bilirubin (0.0-0.5) mg/dL AST (5-37) U/L ALT (0-40) U/L Alkaline Phosphatase (39-117) U/L Total Protein (6.5-8.0) g/dL Albumin (3.5-5.0) g/dL Lipase (8-78) U/L Urine Color YELLOW Urine Appearance CLEAR Urine pH 6.0 (5.0-8.0) Ur Specific [place] 1.010 (1.005-1.025) Urine Protein NEG (NEG-TRACE) MG/DL Urine Glucose (UA) NEG (NEG) MG/DL Urine Ketones NEG (NEG) MG/DL Urine Blood TRACE (NEG) Urine Nitrite NEG (NEG) Ur Leukocyte Esterase NEG (NEG) Urine RBC 1-4 (0) /HPF Urine WBC 1-4 (0-4) /HPF Ur Squamous Epith Cells 1+ /LPF Urine Bacteria 1+ /LPF COVID-19 ([facility]) (Negative) COVID-19 Clin Com 04/11/21 04/11/21 04/12/21 Range/Units 21:32 21:32 00:05 WBC (4.8-10.8) X10*3/uL RBC (4.60-5.80) X10*6/uL Hgb (14.0-18.0) g/dl Hct (42-52) % MCV (80-98) fL MCH (27.0-33.0) pg MCHC (31.0-36.0) g/dl RDW (11.0-16.0) % Plt Count (160-400) X10*3/uL MPV (9.4-12.4) fL Immature Gran % (Auto) (0.0-0.4) % Neut % (Auto) (45-73) % Lymph % (Auto) (20-40) % [place] % (Auto) (2-11) % Eos % (Auto) (0-4) % Baso % (Auto) (0-2) % Lymph # (Auto) (1.2-4.9) X10*3/uL [place] # (Auto) (0.1-1.2) X10*3/uL Eos # (Auto) (0.0-0.4) X10*3/uL Baso # (Auto) (0.0-0.2) X10*3/uL Abs Immat Gran (auto) (0.00-0.03) X10*3/uL Absolute Neuts (auto) (2.0-8.3) X10*3/uL Absolute Nucleated RBC (0.0-0.012) X10*3/uL Nucleated RBC % (auto) (0.0-0.2) /100WBC Sodium (135-145) mmol/L Potassium (3.3-5.1) mmol/L Chloride (96-108) mmol/L Carbon Dioxide (22-29) mmol/L Anion Gap (12-20) BUN (9-16) mg/dL Creatinine (0.5-1.4) mg/dL Estim Creat Clear Calc Estimated GFR Random Glucose (60-115) mg/dL Lactic Acid 2.1 H* (0.5-2.0) mmol/L Lactic Acid Fup @ 2Hr 2.0 (0.5-2.0) mmol/L Calcium (8.4-10.2) mg/dL Total Bilirubin 0.3 (0.0-1.0) mg/dL Direct Bilirubin < 0.2 (0.0-0.5) mg/dL AST 15 (5-37) U/L ALT 8 (0-40) U/L Alkaline Phosphatase 81 (39-117) U/L Total Protein 7.1 (6.5-8.0) g/dL Albumin 3.6 (3.5-5.0) g/dL Lipase 21 (8-78) U/L Urine Color Urine Appearance Urine pH (5.0-8.0) Ur Specific [place] (1.005-1.025) Urine Protein (NEG-TRACE) MG/DL Urine Glucose (UA) (NEG) MG/DL Urine Ketones (NEG) MG/DL Urine Blood (NEG) Urine Nitrite (NEG) Ur Leukocyte Esterase (NEG) Urine RBC (0) /HPF Urine WBC (0-4) /HPF Ur Squamous Epith Cells /LPF Urine Bacteria /LPF COVID-19 ([facility]) (Negative) COVID-19 Clin Com 04/12/21 Range/Units 00:32 WBC (4.8-10.8) X10*3/uL RBC (4.60-5.80) X10*6/uL Hgb (14.0-18.0) g/dl Hct (42-52) % MCV (80-98) fL MCH (27.0-33.0) pg MCHC (31.0-36.0) g/dl RDW (11.0-16.0) % Plt Count (160-400) X10*3/uL MPV (9.4-12.4) fL Immature Gran % (Auto) (0.0-0.4) % Neut % (Auto) (45-73) % Lymph % (Auto) (20-40) % [place] % (Auto) (2-11) % Eos % (Auto) (0-4) % Baso % (Auto) (0-2) % Lymph # (Auto) (1.2-4.9) X10*3/uL [place] # (Auto) (0.1-1.2) X10*3/uL Eos # (Auto) (0.0-0.4) X10*3/uL Baso # (Auto) (0.0-0.2) X10*3/uL Abs Immat Gran (auto) (0.00-0.03) X10*3/uL Absolute Neuts (auto) (2.0-8.3) X10*3/uL Absolute Nucleated RBC (0.0-0.012) X10*3/uL Nucleated RBC % (auto) (0.0-0.2) /100WBC Sodium (135-145) mmol/L Potassium (3.3-5.1) mmol/L Chloride (96-108) mmol/L Carbon Dioxide (22-29) mmol/L Anion Gap (12-20) BUN (9-16) mg/dL Creatinine (0.5-1.4) mg/dL Estim Creat Clear Calc Estimated GFR Random Glucose (60-115) mg/dL Lactic Acid (0.5-2.0) mmol/L Lactic Acid Fup @ 2Hr (0.5-2.0) mmol/L Calcium (8.4-10.2) mg/dL Total Bilirubin (0.0-1.0) mg/dL Direct Bilirubin (0.0-0.5) mg/dL AST (5-37) U/L ALT (0-40) U/L Alkaline Phosphatase (39-117) U/L Total Protein (6.5-8.0) g/dL Albumin (3.5-5.0) g/dL Lipase (8-78) U/L Urine Color Urine Appearance Urine pH (5.0-8.0) Ur Specific [place] (1.005-1.025) Urine Protein (NEG-TRACE) MG/DL Urine Glucose (UA) (NEG) MG/DL Urine Ketones (NEG) MG/DL Urine Blood (NEG) Urine Nitrite (NEG) Ur Leukocyte Esterase (NEG) Urine RBC (0) /HPF Urine WBC (0-4) /HPF Ur Squamous Epith Cells /LPF Urine Bacteria /LPF COVID-19 ([facility]) Negative (Negative) COVID-19 Clin Com See Note Discharge Plan Discharge Clinical Impression: Acute viral syndrome, Hypokalemia Patient Disposition: Home, Self-Care Instructions: Fever in Adults (ED), Hypokalemia (ED) Additional Instructions: Drink plenty of fluids Have extra banana or orange juice daily For Tylenol for fever Report to the ER if not better Follow-up with your PCP At this time we do not have any source of infection blood cultures were drawn will update you if anything positive Beber mucho l?quido [place] jugo extra de pl?giovanni o naranja todos los d?as Para Tylenol para la fiebre Informe a la koki de emergencias si no mejor Seguimiento con vargas PCP En angie momento no tenemos ninguna eze de infecci?n se extrajeron hemocultivos le informar?n si hay algo positivo Prescriptions: No Action metolazone 2.5 mg tablet 2.5 mg PO Q OTHER DAY RF: 0 isosorbide mononitrate 30 mg tablet extended release 24 hr 30 mg PO DAILY 30 Days Qty: 30 RF: 5 tamsulosin 0.4 mg capsule 0.4 mg PO DAILY 90 Days Qty: 90 RF: 2 (DME) pen needle, diabetic [BD Nicole 2nd Gen Pen Needle] 32 gauge x 5/32 needle See Rx Instructions .MEDSUPPLY Qty: 100 RF: 6 furosemide 80 mg tablet 80 mg PO BID Qty: 180 RF: 1 nitroglycerin 0.4 mg tablet, sublingual 0.4 mg sublingual .COMPLEX Qty: 75 RF: 3 ondansetron HCl [Zofran] 4 mg tablet 4 mg PO Q8H PRN (Reason: nausea and vomiting) Qty: 7 RF: 0 phenytoin sodium extended 200 mg capsule 200 mg PO BID RF: 0 (DME) FreeStyle Lite Strips Strip See Rx Instructions ea Not Applicable TID Qty: 10 RF: 0 metoprolol succinate 100 mg tablet extended release 24 hr 100 mg PO DAILY RF: 0 (DME) pen needle, diabetic 32 gauge x 5/32 needle See Rx Instructions ea subcut .MEDSUPPLY Qty: 50 RF: 0 (DME) insulin syringe-needle U-100 0.5 mL 31 gauge x 5/16 syringe See Rx Instructions ml .ROUTE .MEDSUPPLY Qty: 10 RF: 0 aspirin [Adult Low Dose Aspirin] 81 mg tablet,delayed release (DR/EC) 81 mg PO DAILY RF: 0 rosuvastatin 40 mg tablet 40 mg PO DAILY RF: 0 pantoprazole 40 mg tablet,delayed release (DR/EC) 40 mg PO DAILY RF: 0 Humulin R U-500 (Conc) Kwikpen 500 unit/mL (3 mL) insulin pen See Rx Instructions subcut .3 times a day RF: 0 amitriptyline 25 mg tablet 50 mg PO BEDTIME RF: 0 pregabalin 75 mg capsule 75 mg PO BID RF: 0 Print Language: Tanzanian
[2021-04-11 20:48] VITALS: BP 123/60; PULSE 96; RESP 21; TEMP 39; O2SAT 95
[2021-04-11] MEDS: 0.9 % Sodium Chloride 1,000 ML 999 ML IVCONT (21:00)
[2021-04-11 21:23] LABS: Glucose Urine UA NEG (NEG); Leukocyte Esterase Urine NEG (NEG); Nitrite Urine NEG (NEG); Urine Blood TRACE (NEG); Urine Ketones NEG (NEG); Urine Protein NEG (NEG-TRACE)
[2021-04-11 21:29] LABS: Appearance Urine CLEAR; Color Urine YELLOW
[2021-04-11 21:30] LABS: Bacteria Urine 1+ /LPF; Squamous Epithelial Cell Urine 1+ /LPF
[2021-04-11 21:39] LABS: MANUAL DIFF FLAG NO
[2021-04-11 21:41] LABS: Basophils Percent Auto 0.1 % (0-2); Eosinophils Absolute Auto 0.1 X10*3/uL (0.0-0.4); Eosinophils Percent Auto 0.7 % (0-4); Hematocrit 33.4 % (42-52); Hemoglobin 10.6 g/dl (14.0-18.0); Imm Gran Pct Auto 0.7 % (0.0-0.4); Lymphocytes Absolute Auto 0.2 X10*3/uL (1.2-4.9); Lymphocytes Percent Auto 1.2 % (20-40); Mean Corpuscular HGB Conc 31.7 g/dl (31.0-36.0); Mean Corpuscular Hemoglobin 25.5 pg (27.0-33.0); Mean Corpuscular Volume 80.5 fL (80-98); Mean Platelet Volume 10.3 fL (9.4-12.4); Monocytes Absolute Auto 1.3 X10*3/uL (0.1-1.2); Monocytes Percent Auto 8.5 % (2-11); Neutrophils Absolute Auto 13.4 X10*3/uL (2.0-8.3); Neutrophils Percent Auto 88.8 % (45-73); Platelet Count 313 X10*3/uL (160-400); Red Blood Count 4.15 X10*6/uL (4.60-5.80); Red Cell Distribution Width 16.3 % (11.0-16.0); White Blood Count 15.1 X10*3/uL (4.8-10.8)
[2021-04-11 22:09] VITALS: BP 107/52; PULSE 97; RESP 22; TEMP 37.1; O2SAT 98
[2021-04-11 22:10] LABS: Alanine Aminotransferase 8 U/L (0-40); Albumin Level 3.6 g/dL (3.5-5.0); Alkaline Phosphatase 81 U/L (39-117); Aspartate Amino Transferase 15 U/L (5-37); Bilirubin Direct < 0.2 mg/dL (0.0-0.5); Bilirubin Total 0.3 mg/dL (0.0-1.0); Lipase 21 U/L (8-78); Total Protein 7.1 g/dL (6.5-8.0)
[2021-04-11 22:12] LABS: Anion Gap 13 (12-20); Blood Urea Nitrogen 45 mg/dL (9-16); Calcium 8.9 mg/dL (8.4-10.2); Carbon Dioxide 31 mmol/L (22-29); Chloride 102 mmol/L (96-108); Creatinine Clr Calc Pharmacy 41.3; Estimated Glomerular Filt Rate 44; Glucose Random 70 mg/dL (60-115); Potassium 2.8 mmol/L (3.3-5.1); Sodium 143 mmol/L (135-145)
[2021-04-11 22:15] LABS: Lactic Acid 2.1 mmol/L (0.5-2.0)
[2021-04-11 22:40] VITALS: BP 100/60; PULSE 95; RESP 21; TEMP 37; O2SAT 97
[2021-04-11] MEDS: Piperacillin Sodium/Tazobactam 3.375 GM in 0.9 % Sodium Chloride 50 ML IV (22:45)
--- NOTE | 2021-04-11 23:11 | PC.NURSE ---
Dr Burdick aware of repeat BP
[2021-04-11 23:38] LABS: Reflex Lactate? Lactic Acid Added
[2021-04-12 00:37] VITALS: BP 121/67; PULSE 92; RESP 18; TEMP 37.2; O2SAT 94
[2021-04-12 00:53] LABS: COVID-19 Test Negative (Negative); IDNOW Serial# 9DD0AD1C
[2021-04-12] MEDS: Potassium Bicarbonate/Cit AC 25 MEQ TABLET.EFF 50 MEQ PO (01:07)
== END 2021-04-12 01:41 | disposition home or self-care (01) ==
PROVIDERS: Emergency Provider Internal Medicine
DX: B34.9 Viral infection, unspecified (principal); E87.6 Hypokalemia; Z20.822 Contact with and (suspected) exposure to COVID-19; R50.9 Fever, unspecified; E11.22 Type 2 diabetes mellitus with diabetic chronic kidney disease; I13.0 Hypertensive heart and chronic kidney disease with heart failure and stage 1 through stage 4 chronic kidney disease, or unspecified chronic kidney disease; N18.9 Chronic kidney disease, unspecified; I50.9 Heart failure, unspecified
CPT/HCPCS: 36415; 71045; 74176; 80048; 80076; 81001; 83605; 83690; 85025; 87040; 87635; 96361; 96365; 99284; J2543

== ENCOUNTER 2021-04-26 12:20 | Outpatient (REF) | payer MEDICARE, MEDICAID, SELFPAY ==
--- NOTE | ~2021-04-26 | US_ITS ---
EXAMINATION: US VENOUS ULTRASOUND WITH DOPPLER LOWER EXTREMITY, RIGHT CLINICAL INFORMATION: Right leg swelling COMPARISON: None TECHNIQUE: Ultrasound of the deep veins is performed from the hip to the calf with compression sonography and color and pulse Doppler assessment. Spectral analysis with color-flow imaging is performed. FINDINGS: There is normal venous compression and respiratory variation and augmented flow. The visualized common femoral vein, superficial femoral vein, profunda femoral vein, popliteal vein, and the trifurcation region shows no evidence of deep venous thrombosis. There is no significant popliteal fossa cyst. US/US venous duplex LE RT IMPRESSION: No DVT demonstrated in the right lower extremity.
== END 2021-04-26 12:21 | disposition home or self-care (01) ==
LOC: HO.US 12:20
PROVIDERS: PCP Internal Medicine; Visit Provider Internal Medicine
DX: R60.0 Localized edema (principal)
CPT/HCPCS: 93971

== ENCOUNTER 2021-04-29 03:59 | Emergency (ER) | payer MEDICARE, MEDICAID, SELFPAY ==
--- NOTE | ~2021-04-29 | XR_ITS ---
EXAMINATION: XR CHEST CLINICAL INFORMATION: Chest pain COMPARISON: 04/11/2021 TECHNIQUE: Frontal view of the chest was obtained. FINDINGS: Mild dependent atelectasis. No consolidation, pneumothorax, or pleural effusion. Calcific atherosclerosis is present in the thoracic aorta. Cardiac silhouette is normal. Pulmonary vasculature is unremarkable. No acute osseous findings. Calcific tendinitis is evident at the left rotator cuff. XR/XR chest 1V IMPRESSION: Mild dependent atelectasis. No acute pulmonary findings.
--- NOTE | 2021-04-29 04:06 | ECG_ITS ---
Test Reason : CHEST PAIN Blood Pressure : / mmHG Vent. Rate : 069 BPM Atrial Rate : 069 BPM P-R Int : 280 ms QRS Dur : 100 ms QT Int : 456 ms P-R-T Axes : 074 035 060 degrees QTc Int : 488 ms Sinus rhythm with 1st degree A-V block Prolonged QT Abnormal ECG When compared with ECG of 02-AUG-2020 22:19, No significant change was found Referred By: Rosey Hassan Electronically Signed By:JEANIE FONTENOT MD
[2021-04-29 04:07] VITALS: BP 154/65; PULSE 71; RESP 18; TEMP 37.1; O2SAT 97; BMI 34.8
--- NOTE | 2021-04-29 04:13 | ED_ITS ---
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 Patient states that the pain worsens with deep breathing but is unable to further characterize the pain but denies that it radiates anywhere. This pain was not associated with dizziness, diaphoresis, nausea. Patient describes increasing dyspnea on exertion for the past 2 days. The daughter endorses that her father was evaluated here in the emergency room approximately 3 days ago. Currently, patient is feeling better. The daughter did provide him with a single dose of nitro. In addition, the daughter endorses that he was seen by his primary care provider approximately 2 days ago and started on meloxicam yesterday. Related Data Home Medications Medication Instructions Recorded Confirmed aspirin 81 mg tablet,delayed 81 mg PO DAILY 08/12/20 03/15/21 release metolazone 2.5 mg tablet 2.5 mg PO Q OTHER DAY tab 08/12/20 03/15/21 pantoprazole 40 mg tablet,delayed 40 mg PO DAILY 08/12/20 03/15/21 release rosuvastatin 40 mg tablet 40 mg PO DAILY 08/12/20 03/15/21 blood sugar diagnostic #10 ea 09/15/20 03/15/21 insulin syringe-needle U-100 0.5 #10 ea 09/15/20 03/15/21 mL 31 gauge x 03/14 metoprolol succinate 100 mg 100 mg PO DAILY 09/15/20 03/15/21 tablet,extended release 24 hr pen needle, diabetic 32 gauge x #50 ea 09/15/20 03/15/21 amitriptyline 25 mg tablet 50 mg PO BEDTIME 12/30/20 03/15/21 insulin regular hum U-500 conc See Rx Instructions SUBCUT .3 12/30/20 03/15/21 times a day ml phenytoin sodium extended 200 mg 200 mg PO BID cap 03/15/21 03/15/21 capsule pregabalin 75 mg capsule 75 mg PO BID cap 03/15/21 03/15/21 Previous Rx's Medication Instructions Recorded ondansetron HCl [Zofran] 4 mg PO Q8H PRN #7 tab 08/03/20 tamsulosin 0.4 mg capsule 0.4 mg PO DAILY 90 Days #90 cap 10/01/20 pen needle, diabetic 32 gauge x #100 ea 12/08/20 furosemide 80 mg tablet 80 mg PO BID #180 tab 12/29/20 nitroglycerin 0.4 mg sublingual 0.4 mg SUBLINGUAL .COMPLEX #75 tab 02/19/21 tablet isosorbide mononitrate 30 mg 30 mg PO DAILY 30 Days #30 tab 04/27/21 tablet,extended release 24 hr Allergies Allergy/AdvReac Type Severity Reaction Status Date / Time codeine [CODEINE] Allergy Unknown UNKNOWN Verified 04/29/21 04:12 lisinopril Allergy Unknown unknown Uncoded 04/29/21 04:12 Review of Systems Review of Systems: Pertinent positives and negatives as stated in HPI 10 point review of systems is otherwise negative. FOR[facility] Past Medical History Source: nursing notes reviewed Medical History (HFpEF) heart failure with preserved ejection fraction BPH (benign prostatic hyperplasia) CAD (coronary artery disease) CHF (congestive heart failure) CKD (chronic kidney disease) Coronary stent patent Diabetes mellitus, type 2 Diabetic nephropathy associated with type 2 diabetes mellitus Diabetic neuropathy associated with type 2 diabetes mellitus Dyslipidemia Epilepsy Hypertension Hypokalemia Neuropathy associated with endocrine disorder Secondary hyperparathyroidism Type 2 diabetes mellitus with hyperglycemia, with long-term current use of insulin Surgical History Hx of cardiac cath Stented coronary artery Family History Family History Father Diabetes CVD (cardiovascular disease) Mother Diabetes Brother Diabetes Son Thyroid disease Lung disease Psoriasis HTN (hypertension) Social History Social History Household Members: Spouse Alcohol intake: unknown Patient Tobacco Use Status: Never used Tobacco Use of substances other than those prescribed or required for medical reasons: No Advance Directives: No Advance Directives Information Provided: No Physical Exam Vital Signs: Vital Signs: Last Vital Signs Temp 97.8 F 04/29/21 05:46 Pulse 67 04/29/21 05:46 Resp 15 04/29/21 05:46 BP 134/64 04/29/21 05:46 Pulse Ox 98 04/29/21 05:46 Body Mass Index 34.8 VITAL SIGNS: Reviewed. GENERAL: Well developed, well nourished, in no acute distress. HEAD: Normocephalic/atraumatic EYES: PERRLA, EOMI EARS: Ext canals without abnormality NOSE: Nares patent bilateral OROPHARYNX: no oral lesions noted, posterior pharynx clear NECK: Supple, no adenopathy LUNGS: Good inspiratory effort with bibasilar rales noted, no tachypnea, no rhonchi. SpO2<97> CARDIOVASCULAR: Regular rate and rhythm without noted murmurs, no JVD, but bilateral lower foot/ankle 1+ pitting edema. ABDOMEN: Soft, non-tender, non-distended with bowel sounds. No rigidity. No guarding. No palpable masses or hernias noted SKIN: Inspection of the skin reveals no rashes, NEUROLOGIC: Alert and oriented x 4. Strength and sensation to light touch were grossly intact x 4. Course Course Course Narrative: 81-year-old male with history and clinical presentation consistent with likely CHF exacerbation and doubt cardiac ischemia or pneumonia possibly a component of costochondritis as well. HEART Score: 5 On review of all investigations there are no acute findings to suggest CHF exacerbation, pneumonia, nor cardiac ischemia. Potassium is noted to be mildly depleted and patient was provided with 60 mEq of potassium prior to discharge with instructions to follow-up with his primary care provider to recheck the levels as well as to be re-evaluated. A consider this may have been a component of current weather in combination with patient's underlying medical conditions , to include costochondritis. Will repeat high sensitivity troponin at 7:[address] a[address] out to Dr Potter: f/u Trop #2 MDM - Chest Pain Lab Data Result diagrams: 04/29/21 04:17 04/29/21 04:18 Labs: Lab Results 04/29/21 04/29/21 04/29/21 Range/Units 04:17 04:17 04:18 WBC 6.9 (4.8-10.8) X10*3/uL RBC 4.06 L (4.60-5.80) X10*6/uL Hgb 10.3 L (14.0-18.0) g/dl Hct 33.0 L (42-52) % MCV 81.3 (80-98) fL MCH 25.4 L (27.0-33.0) pg MCHC 31.2 (31.0-36.0) g/dl RDW 16.9 H (11.0-16.0) % Plt Count 335 (160-400) X10*3/uL MPV 10.0 (9.4-12.4) fL Immature Gran % (Auto) 0.3 (0.0-0.4) % Neut % (Auto) 62.5 (45-73) % Lymph % (Auto) 20.1 (20-40) % [place] % (Auto) 12.9 H (2-11) % Eos % (Auto) 3.6 (0-4) % Baso % (Auto) 0.6 (0-2) % Lymph # (Auto) 1.4 (1.2-4.9) X10*3/uL [place] # (Auto) 0.9 (0.1-1.2) X10*3/uL Eos # (Auto) 0.3 (0.0-0.4) X10*3/uL Baso # (Auto) 0.0 (0.0-0.2) X10*3/uL Abs Immat Gran (auto) 0.02 (0.00-0.03) X10*3/uL Absolute Neuts (auto) 4.3 (2.0-8.3) X10*3/uL Absolute Nucleated RBC 0.000 (0.0-0.012) X10*3/uL Nucleated RBC % (auto) 0.0 (0.0-0.2) /100WBC PT (10.8-13.0) SEC INR (0.9-1.1) Sodium 140 (135-145) mmol/L Potassium 3.2 L (3.3-5.1) mmol/L Chloride 99 (96-108) mmol/L Carbon Dioxide 28 (22-29) mmol/L Anion Gap 16 (12-20) BUN 45 H (9-16) mg/dL Creatinine 1.44 H (0.5-1.4) mg/dL Estim Creat Clear Calc 44.8 Estimated GFR 47 Random Glucose 149 H D (60-115) mg/dL Calcium 9.4 (8.4-10.2) mg/dL Total Bilirubin 0.2 (0.0-1.0) mg/dL AST 21 (5-37) U/L ALT 8 (0-40) U/L Alkaline Phosphatase 77 (39-117) U/L Troponin I High Sens 8.4 (<3.5-35.0) ng/L B-Natriuretic Peptide 65 (<100) pg/mL Total Protein 7.6 (6.5-8.0) g/dL Albumin 3.8 (3.5-5.0) g/dL Lipase 26 (8-78) U/L Urine Color Urine Appearance Urine pH (5.0-8.0) Ur Specific [place] (1.005-1.025) Urine Protein (NEG-TRACE) MG/DL Urine Glucose (UA) (NEG) MG/DL Urine Ketones (NEG) MG/DL Urine Blood (NEG) Urine Nitrite (NEG) Ur Leukocyte Esterase (NEG) 04/29/21 04/29/21 04/29/21 Range/Units 04:18 04:18 05:49 WBC (4.8-10.8) X10*3/uL RBC (4.60-5.80) X10*6/uL Hgb (14.0-18.0) g/dl Hct (42-52) % MCV (80-98) fL MCH (27.0-33.0) pg MCHC (31.0-36.0) g/dl RDW (11.0-16.0) % Plt Count (160-400) X10*3/uL MPV (9.4-12.4) fL Immature Gran % (Auto) (0.0-0.4) % Neut % (Auto) (45-73) % Lymph % (Auto) (20-40) % [place] % (Auto) (2-11) % Eos % (Auto) (0-4) % Baso % (Auto) (0-2) % Lymph # (Auto) (1.2-4.9) X10*3/uL [place] # (Auto) (0.1-1.2) X10*3/uL Eos # (Auto) (0.0-0.4) X10*3/uL Baso # (Auto) (0.0-0.2) X10*3/uL Abs Immat Gran (auto) (0.00-0.03) X10*3/uL Absolute Neuts (auto) (2.0-8.3) X10*3/uL Absolute Nucleated RBC (0.0-0.012) X10*3/uL Nucleated RBC % (auto) (0.0-0.2) /100WBC PT 12.5 (10.8-13.0) SEC INR 1.1 (0.9-1.1) Sodium (135-145) mmol/L Potassium (3.3-5.1) mmol/L Chloride (96-108) mmol/L Carbon Dioxide (22-29) mmol/L Anion Gap (12-20) BUN (9-16) mg/dL Creatinine (0.5-1.4) mg/dL Estim Creat Clear Calc Estimated GFR Random Glucose (60-115) mg/dL Calcium (8.4-10.2) mg/dL Total Bilirubin (0.0-1.0) mg/dL AST (5-37) U/L ALT (0-40) U/L Alkaline Phosphatase (39-117) U/L Troponin I High Sens (<3.5-35.0) ng/L B-Natriuretic Peptide (<100) pg/mL Total Protein (6.5-8.0) g/dL Albumin (3.5-5.0) g/dL Lipase Cancelled (8-78) U/L Urine Color YELLOW Urine Appearance CLEAR Urine pH 6.5 (5.0-8.0) Ur Specific [place] 1.010 (1.005-1.025) Urine Protein NEG (NEG-TRACE) MG/DL Urine Glucose (UA) NEG (NEG) MG/DL Urine Ketones NEG (NEG) MG/DL Urine Blood NEG (NEG) Urine Nitrite NEG (NEG) Ur Leukocyte Esterase NEG (NEG) ECG Data ECG #1: Attestation: I personally reviewed and interpreted this ECG as follows: Prior ECG tracings: available for review ( 08/02/2020 no acute changes on comparison) Interpretation: sinus rhythm with 1st degree AV block ( this is unchanged), HR - 69, no evidence of acute ischemia, humerus/ QTC are within normal limits. Discharge Plan Discharge Clinical Impression: Atypical chest pain, Anxiety, Costochondritis, Hypokalemia Patient Disposition: Home, Self-Care Instructions: Costochondritis (ED), Anxiety (ED), Hypokalemia (ED) Additional Instructions: 1. Reanude todos los medicamentos caseros seg?n lo prescrito, para incluir kaylen nueva prescripci?n de Meloxicam. 2. Jose un seguimiento con vargas proveedor de atenci?n primaria en los pr?ximos 1-2 d?as para kaylen reevaluaci?n, un nuevo control del nivel de potasio y un tratamiento ambulatorio adicional. Regrese a la koki de emergencias si estuardo s?ntomas empeoran de manera aguda. Prescriptions: No Action metolazone 2.5 mg tablet 2.5 mg PO Q OTHER DAY RF: 0 tamsulosin 0.4 mg capsule 0.4 mg PO DAILY 90 Days Qty: 90 RF: 2 (DME) pen needle, diabetic [BD Nicole 2nd Gen Pen Needle] 32 gauge x 5/32 needle See Rx Instructions .MEDSUPPLY Qty: 100 RF: 6 furosemide 80 mg tablet 80 mg PO BID Qty: 180 RF: 1 nitroglycerin 0.4 mg tablet, sublingual 0.4 mg sublingual .COMPLEX Qty: 75 RF: 3 isosorbide mononitrate 30 mg tablet extended release 24 hr 30 mg PO DAILY 30 Days Qty: 30 RF: 5 ondansetron HCl [Zofran] 4 mg tablet 4 mg PO Q8H PRN (Reason: nausea and vomiting) Qty: 7 RF: 0 phenytoin sodium extended 200 mg capsule 200 mg PO BID RF: 0 (DME) FreeStyle Lite Strips Strip See Rx Instructions ea Not Applicable TID Qty: 10 RF: 0 metoprolol succinate 100 mg tablet extended release 24 hr 100 mg PO DAILY RF: 0 (DME) pen needle, diabetic 32 gauge x 5/32 needle See Rx Instructions ea subcut .MEDSUPPLY Qty: 50 RF: 0 (DME) insulin syringe-needle U-100 0.5 mL 31 gauge x 5/16 syringe See Rx Instructions ml .ROUTE .MEDSUPPLY Qty: 10 RF: 0 aspirin [Adult Low Dose Aspirin] 81 mg tablet,delayed release (DR/EC) 81 mg PO DAILY RF: 0 rosuvastatin 40 mg tablet 40 mg PO DAILY RF: 0 pantoprazole 40 mg tablet,delayed release (DR/EC) 40 mg PO DAILY RF: 0 Humulin R U-500 (Conc) Kwikpen 500 unit/mL (3 mL) insulin pen See Rx Instructions subcut .3 times a day RF: 0 amitriptyline 25 mg tablet 50 mg PO BEDTIME RF: 0 pregabalin 75 mg capsule 75 mg PO BID RF: 0 Referrals: Physician,Unknown [Primary Care Provider] - 2 days Print Language: German
[2021-04-29 04:22] LABS: Basophils Percent Auto 0.6 % (0-2); Eosinophils Absolute Auto 0.3 X10*3/uL (0.0-0.4); Eosinophils Percent Auto 3.6 % (0-4); Hemoglobin 10.3 g/dl (14.0-18.0); Imm Gran Abs Auto 0.02 X10*3/uL (0.00-0.03); Imm Gran Pct Auto 0.3 % (0.0-0.4); Lymphocytes Absolute Auto 1.4 X10*3/uL (1.2-4.9); Lymphocytes Percent Auto 20.1 % (20-40); MANUAL DIFF FLAG NO; Mean Corpuscular HGB Conc 31.2 g/dl (31.0-36.0); Mean Corpuscular Hemoglobin 25.4 pg (27.0-33.0); Mean Corpuscular Volume 81.3 fL (80-98); Monocytes Absolute Auto 0.9 X10*3/uL (0.1-1.2); Monocytes Percent Auto 12.9 % (2-11); Neutrophils Absolute Auto 4.3 X10*3/uL (2.0-8.3); Neutrophils Percent Auto 62.5 % (45-73); Platelet Count 335 X10*3/uL (160-400); Red Blood Count 4.06 X10*6/uL (4.60-5.80); Red Cell Distribution Width 16.9 % (11.0-16.0); White Blood Count 6.9 X10*3/uL (4.8-10.8)
[2021-04-29 04:28] LABS: INTERNATIONAL NORM RATIO 1.1 (0.9-1.1); Prothrombin Time 12.5 SEC (10.8-13.0)
[2021-04-29 04:49] LABS: Alanine Aminotransferase 8 U/L (0-40); Albumin Level 3.8 g/dL (3.5-5.0); Alkaline Phosphatase 77 U/L (39-117); Anion Gap 16 (12-20); Aspartate Amino Transferase 21 U/L (5-37); Bilirubin Total 0.2 mg/dL (0.0-1.0); Blood Urea Nitrogen 45 mg/dL (9-16); Calcium 9.4 mg/dL (8.4-10.2); Carbon Dioxide 28 mmol/L (22-29); Chloride 99 mmol/L (96-108); Creatinine Clr Calc Pharmacy 44.8; Estimated Glomerular Filt Rate 47; Glucose Random 149 mg/dL (60-115); Lipase 26 U/L (8-78); Potassium 3.2 mmol/L (3.3-5.1); Sodium 140 mmol/L (135-145); Total Protein 7.6 g/dL (6.5-8.0)
[2021-04-29 04:49] LABS: B Type Natriuretic Peptide 65 pg/mL (<100); Troponin-I High Sensitivity 8.4 ng/L (<3.5-35.0)
[2021-04-29 05:46] VITALS: BP 134/64; PULSE 67; RESP 15; TEMP 36.6; O2SAT 98
[2021-04-29 06:02] LABS: Glucose Urine UA NEG (NEG); Leukocyte Esterase Urine NEG (NEG); Nitrite Urine NEG (NEG); PH 6.5 (5.0-8.0); Urine Blood NEG (NEG); Urine Ketones NEG (NEG); Urine Protein NEG (NEG-TRACE)
[2021-04-29 06:03] LABS: Appearance Urine CLEAR; Color Urine YELLOW
[2021-04-29] MEDS: Potassium Chloride ER 20 MEQ TAB.ER.PRT 60 MEQ PO (07:18)
[2021-04-29 07:20] VITALS: BP 142/63; PULSE 69; RESP 15; TEMP 36.7; O2SAT 99
[2021-04-29 08:20] LABS: Troponin-I High Sensitivity 7.7 ng/L (<3.5-35.0)
[2021-04-29 08:49] VITALS: BP 158/68; PULSE 65; RESP 13; TEMP 36.7; O2SAT 98
== END 2021-04-29 09:55 | disposition home or self-care (01) ==
PROVIDERS: Student in an Organized Health Care Education/Training Program; Emergency Provider Emergency Medicine Emergency Medical Services
DX: M94.0 Chondrocostal junction syndrome [Tietze] (principal); F41.9 Anxiety disorder, unspecified; E87.6 Hypokalemia; I13.0 Hypertensive heart and chronic kidney disease with heart failure and stage 1 through stage 4 chronic kidney disease, or unspecified chronic kidney disease; I50.30 Unspecified diastolic (congestive) heart failure; E11.22 Type 2 diabetes mellitus with diabetic chronic kidney disease; N18.9 Chronic kidney disease, unspecified; I25.10 Atherosclerotic heart disease of native coronary artery without angina pectoris; Z79.4 Long term (current) use of insulin; Z79.82 Long term (current) use of aspirin; Z79.899 Other long term (current) drug therapy; Z95.5 Presence of coronary angioplasty implant and graft
CPT/HCPCS: 36415; 71045; 80053; 81003; 83690; 83880; 84484; 85025; 85610; 93005; 99283; 99285

== ENCOUNTER → 2021-05-05 10:01 | Outpatient (BNVA) | payer MEDICARE, MEDICAID, SELFPAY | PROVIDERS: PCP Internal Medicine; Visit Provider Internal Medicine Endocrinology, Diabetes & Metabolism | DX: E11.65 Type 2 diabetes mellitus with hyperglycemia (principal); E11.21 Type 2 diabetes mellitus with diabetic nephropathy; E11.40 Type 2 diabetes mellitus with diabetic neuropathy, unspecified; I12.9 Hypertensive chronic kidney disease with stage 1 through stage 4 chronic kidney disease, or unspecified chronic kidney disease; N18.9 Chronic kidney disease, unspecified; E78.5 Hyperlipidemia, unspecified; Z98.890 Other specified postprocedural states; Z88.5 Allergy status to narcotic agent; Z88.8 Allergy status to other drugs, medicaments and biological substances; Z79.4 Long term (current) use of insulin; Z79.899 Other long term (current) drug therapy; E11.22 Type 2 diabetes mellitus with diabetic chronic kidney disease | CPT/HCPCS: 82947; 99212 ==

== ENCOUNTER 2021-05-18 05:05 | Inpatient (IN) | payer MEDICARE, MEDICAID, SELFPAY ==
[2021-05-18] VITALS (36 sets, daily range): BP systolic 109–175; BP diastolic 45–109; PULSE 57–111; RESP 13–25; TEMP 36.6–36.9; O2SAT 95–100; BMI 34.0
--- NOTE | ~2021-05-18 | XR_ITS ---
EXAMINATION: XR CHEST CLINICAL INFORMATION: Hypoglycemia COMPARISON: 04/29/2021 TECHNIQUE: Frontal view of the chest was obtained. FINDINGS: Endotracheal tube tip lies approximately 3.5 cm above the oni. Enteric tube courses in the stomach. The lungs are hypoinflated. No focal consolidation is seen. Mild interstitial prominence is noted. No evidence of pneumothorax or significant pleural effusion. Cardiac silhouette appears near the upper limits of normal in size. Calcification is present at the aortic arch. No acute osseous findings are seen. XR/XR chest 1V IMPRESSION: Mild interstitial prominence which may reflect developing interstitial edema in the proper clinical setting. No focal consolidation.
--- NOTE | ~2021-05-18 | CT_ITS ---
EXAMINATION: NONCONTRAST HEAD CT NONCONTRAST CERVICAL SPINE CT INDICATION INFORMATION: Hypoglycemia, dyskinesis, fall COMPARISON: 07/30/2020 TECHNIQUE: Separate noncontrast CT examinations of the head and cervical spine were performed. Coronal head CT images and coronal and sagittal cervical spine images were created at the technologist workstation. DLP: 2478 mGy-cm DOSE LOWERING TECHNIQUES: This CT examination was performed using dose optimization techniques as appropriate, variously including the following: - Automated exposure control - Adjustment of mA and/or kV according to patient size (this includes techniques or standardized protocols for targeted exams were dose is matched to indication/reason for exam; i.e. extremities or head) - Use of iterative reconstruction technique FINDINGS: Head: Limited evaluation in some regions due to motion artifact. There is no appreciable acute intracranial hemorrhage or territorial infarction. No abnormal mass-effect or midline shift is seen. Dan to white matter differentiation is well preserved. No extra-axial fluid collections are identified. The ventricles are normal in size. There is mild periventricular white matter hypoattenuation consistent with chronic small vessel ischemic disease. Mild volume loss is noted. The osseous structures and soft tissues are normal. There is mucosal thickening of the inferior maxillary sinuses, left greater than right. The mastoid air cells are well-aerated. Cervical spine: There is anatomic alignment of the vertebral bodies and posterior elements. There is degenerative change at the atlantodens articulation. Vertebral body heights are maintained. There is disc space narrowing of the lower cervical spine. Multilevel endplate osteophytes are present in the mid and lower cervical spine. There are scattered moderate to severe bilateral facet arthropathy. No evidence of acute fracture. No prevertebral soft tissue swelling. Visualized portions of the lung apices are unremarkable. The thyroid gland is unremarkable. CT/CT cervical spine wo con IMPRESSION: 1. Head: Limited evaluation in some regions due to motion artifact. No definite acute findings identified. 2. Cervical spine: No acute findings identified. Degenerative changes as noted above.
--- NOTE | 2021-05-18 05:10 | ECG_ITS ---
Test Reason : FALL Blood Pressure : / mmHG Vent. Rate : 114 BPM Atrial Rate : 050 BPM P-R Int : 000 ms QRS Dur : 096 ms QT Int : 352 ms P-R-T Axes : 000 039 076 degrees QTc Int : 485 ms Poor data quality, interpretation may be adversely affected Undetermined rhythm ST depression, consider subendocardial injury Abnormal ECG When compared with ECG of 29-APR-2021 04:10, Current undetermined rhythm precludes rhythm comparison, needs review ST now depressed in Anterolateral leads Referred By: Rosey Hassan Electronically Signed By:
--- NOTE | 2021-05-18 05:23 | ED_ITS ---
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 and on checking the glucose level afterwards found the patient to be 54/55. The daughter who is currently at bedside states that she was called by her mother and on arrival to [facility] her father found him to be on the floor still and called 911. As per EMS patient was responsive and answering questions during the ride, but it is noted that on arrival he is not answering questions. Related Data Home Medications Medication Instructions Recorded Confirmed aspirin 81 mg tablet,delayed 81 mg PO DAILY 08/12/20 05/05/21 release metolazone 2.5 mg tablet 2.5 mg PO Q OTHER DAY tab 08/12/20 05/05/21 pantoprazole 40 mg tablet,delayed 40 mg PO DAILY 08/12/20 05/05/21 release rosuvastatin 40 mg tablet 40 mg PO DAILY 08/12/20 05/05/21 blood sugar diagnostic #10 ea 09/15/20 05/05/21 metoprolol succinate 100 mg 100 mg PO DAILY 09/15/20 05/05/21 tablet,extended release 24 hr pen needle, diabetic 32 gauge x #50 ea 09/15/20 05/05/21 amitriptyline 25 mg tablet 50 mg PO BEDTIME 12/30/20 05/05/21 phenytoin sodium extended 200 mg 200 mg PO BID cap 03/15/21 05/05/21 capsule pregabalin 75 mg capsule 75 mg PO BID cap 03/15/21 05/05/21 meloxicam 7.5 mg tablet 7.5 mg PO DAILY 05/05/21 05/05/21 Previous Rx's Medication Instructions Recorded ondansetron HCl [Zofran] 4 mg PO Q8H PRN #7 tab 08/03/20 tamsulosin 0.4 mg capsule 0.4 mg PO DAILY 90 Days #90 cap 10/01/20 furosemide 80 mg tablet 80 mg PO BID #180 tab 12/29/20 nitroglycerin 0.4 mg sublingual 0.4 mg SUBLINGUAL .COMPLEX #75 tab 02/19/21 tablet isosorbide mononitrate 30 mg 30 mg PO DAILY 30 Days #30 tab 04/27/21 tablet,extended release 24 hr BD Nicole 2nd Gen Pen Needle 32 #100 ea NS 05/05/21 gauge x 5/32 Humulin R U-500 (Conc) Kwikpen 500 See Rx Instructions SUBCUT .3 05/05/21 unit/mL (3 mL) subcutaneous times a day 30 Days #12 ml NS Allergies Allergy/AdvReac Type Severity Reaction Status Date / Time codeine [CODEINE] Allergy Unknown UNKNOWN Verified 04/29/21 04:12 lisinopril Allergy Unknown unknown Uncoded 04/29/21 04:12 Review of Systems Review of Systems: Pertinent positives and negatives as stated in HPI and 10 point review of systems is unable to be further obtained due to patient's current condition. [facility] Past Medical History Source: nursing notes reviewed Medical History (HFpEF) heart failure with preserved ejection fraction BPH (benign prostatic hyperplasia) CAD (coronary artery disease) CHF (congestive heart failure) CKD (chronic kidney disease) Coronary stent patent Diabetes mellitus, type 2 Diabetic nephropathy associated with type 2 diabetes mellitus Diabetic neuropathy associated with type 2 diabetes mellitus Dyslipidemia Epilepsy Hypertension Hypokalemia Neuropathy associated with endocrine disorder Secondary hyperparathyroidism Type 2 diabetes mellitus with hyperglycemia, with long-term current use of insulin Surgical History Hx of cardiac cath Stented coronary artery Family History Family History Father Diabetes CVD (cardiovascular disease) Mother Diabetes Brother Diabetes Son Thyroid disease Lung disease Psoriasis HTN (hypertension) Social History Social History Household Members: Spouse Alcohol intake: unknown Patient Tobacco Use Status: Never used Tobacco Advance Directives: Yes Advance Directives Information Provided: Yes Advance Directives on File: No Physical Exam Vital Signs: Vital Signs: Last Vital Signs Pulse 92 05/18/21 07:00 Resp 18 05/18/21 07:00 BP 175/75 H 05/18/21 07:00 Pulse Ox 98 05/18/21 07:00 Body Mass Index 34.0 VITAL SIGNS: Reviewed. GENERAL: Well developed, well nourished, spastic, dyskinetic movements. HEAD: Normocephalic/atraumatic, EYES: PERRLA, EOMI intact without pain, no nystagmus OROPHARYNX: no oral lesions noted, posterior pharynx clear and non-erythematous without noted tonsillar enlargement/erythema/exudates NECK: C-collar in place LUNGS: Normal breath sounds. No adventitious sounds or accessory muscle use. SpO2<98> CARDIOVASCULAR: Regular rate and rhythm without noted murmurs, no JVD but bilateral 3+ pitting edema to feet/ankles ABDOMEN: Soft, non-tender, non-distended with bowel sounds. No rigidity. No guarding. MUSCULOSKELETAL: No tenderness, deformities, or effusions noted on gross inspection. EXTREMITIES: No cyanosis, clubbing or edema. SKIN: Inspection of the skin reveals no rashes, ulcerations, jaundice, pallor, or petechiae. NEUROLOGIC: Alert but not answering our questions, however noted to respond to the daughter. Strength and sensation to light touch were grossly intact x 4,spastic, dyskinetic movements. Course Course Course Narrative: 81-year-old male with history and clinical presentation consistent with hypoglycemic event and although not communicating with staff, appears to be answering his daughter at bedside through nodding or yes/no answers and is observed to be having spastic/diskinetic movements. Initial concerns for possible intracranial hemorrhage although no obvious focal deficits, pupils are symmetrical, and during CT scan patient was noted to adjust his clothing with purposeful movement as well as acknowledging daughter's presence. Suspect electrolyte abnormality. 0550: Patient started having a tonic-clonic seizure then became apneic and began to become bradycardic, then began breathing, but was not responding to stimuli/no gag and although it was possible that patient was post-ictal the decision was made to intubate for airway protection. 0645: I discussed patient's situation with his son and daughter via a egg separator, explaining the reason for intubation as well as pending lab work for further evaluation, and answered all questions. I discussed the case with the christian education director who is accepting admission. All labs were reviewed and there are multiple derangements, however most are likely affected by patient's preceding seizure. The Dilantin level was noted and patient was loaded with 1 g. Procedures Intubation Time out performed: No sedative: Etomidate Mg Given: 20 paralytic: Rocuronium Mg Given: 120 Laryngoscope: fiber optic video scope ET Tube Size: 8 ET Tube Uncuffed: No Tube Secured Depth (cm): 26 Tube Secured Location: lips Tube Placement Confirmation: visualized tube passing through cords, equal breath sounds bilaterally, no breath sounds over epigastrium and confirmation by capnometry Patient Tolerated Procedure: well Intubation Complications: none Medical Decision Making Lab Data Result diagrams: 05/18/21 06:05 05/18/21 06:05 Labs: Lab Results 05/18/21 05/18/21 05/18/21 Range/Units 05:13 05:55 06:05 WBC 10.2 (4.8-10.8) X10*3/uL RBC 3.91 L (4.60-5.80) X10*6/uL Hgb 9.9 L (14.0-18.0) g/dl Hct 33.5 L (42-52) % MCV 85.7 (80-98) fL MCH 25.3 L (27.0-33.0) pg MCHC 29.6 L (31.0-36.0) g/dl RDW 18.1 H (11.0-16.0) % Plt Count 269 (160-400) X10*3/uL MPV 11.0 (9.4-12.4) fL Immature Gran % (Auto) 0.4 (0.0-0.4) % Neut % (Auto) 62.1 (45-73) % Lymph % (Auto) 23.9 (20-40) % [place] % (Auto) 10.0 (2-11) % Eos % (Auto) 2.6 (0-4) % Baso % (Auto) 1.0 (0-2) % Lymph # (Auto) 2.4 (1.2-4.9) X10*3/uL [place] # (Auto) 1.0 (0.1-1.2) X10*3/uL Eos # (Auto) 0.3 (0.0-0.4) X10*3/uL Baso # (Auto) 0.1 (0.0-0.2) X10*3/uL Abs Immat Gran (auto) 0.04 H (0.00-0.03) X10*3/uL Absolute Neuts (auto) 6.3 (2.0-8.3) X10*3/uL Absolute Nucleated RBC 0.000 (0.0-0.012) X10*3/uL Nucleated RBC % (auto) 0.0 (0.0-0.2) /100WBC PT (9.9-13.0) SEC INR (0.9-1.1) VBG pH (7.32-7.43) VBG pCO2 mmHg VBG pO2 mmHg VBG HCO3 (22-26) mmol/L VBG O2 Saturation % VBG Base Excess mmol/L Sodium (135-145) mmol/L Potassium (3.3-5.1) mmol/L Chloride (96-108) mmol/L Carbon Dioxide (22-29) mmol/L Anion Gap (12-20) BUN (9-16) mg/dL Creatinine (0.5-1.4) mg/dL Estim Creat Clear Calc Estimated GFR POC Glucose 105 148 H (60-115) mg/dL Random Glucose (60-115) mg/dL Calcium (8.4-10.2) mg/dL Magnesium (1.6-2.6) mg/dL Total Bilirubin (0.0-1.0) mg/dL AST (5-37) U/L ALT (0-40) U/L Alkaline Phosphatase (39-117) U/L Troponin I High Sens (<3.5-35.0) ng/L B-Natriuretic Peptide (<100) pg/mL Total Protein (6.5-8.0) g/dL Albumin (3.5-5.0) g/dL Phenytoin (10.0-20.0) ug/mL Ethyl Alcohol mg/dL COVID-19 ([facility]) (Negative) COVID-19 Clin Com 05/18/21 05/18/21 05/18/21 Range/Units 06:05 06:05 06:05 WBC (4.8-10.8) X10*3/uL RBC (4.60-5.80) X10*6/uL Hgb (14.0-18.0) g/dl Hct (42-52) % MCV (80-98) fL MCH (27.0-33.0) pg MCHC (31.0-36.0) g/dl RDW (11.0-16.0) % Plt Count (160-400) X10*3/uL MPV (9.4-12.4) fL Immature Gran % (Auto) (0.0-0.4) % Neut % (Auto) (45-73) % Lymph % (Auto) (20-40) % [place] % (Auto) (2-11) % Eos % (Auto) (0-4) % Baso % (Auto) (0-2) % Lymph # (Auto) (1.2-4.9) X10*3/uL [place] # (Auto) (0.1-1.2) X10*3/uL Eos # (Auto) (0.0-0.4) X10*3/uL Baso # (Auto) (0.0-0.2) X10*3/uL Abs Immat Gran (auto) (0.00-0.03) X10*3/uL Absolute Neuts (auto) (2.0-8.3) X10*3/uL Absolute Nucleated RBC (0.0-0.012) X10*3/uL Nucleated RBC % (auto) (0.0-0.2) /100WBC PT 12.4 (9.9-13.0) SEC INR 1.1 (0.9-1.1) VBG pH (7.32-7.43) VBG pCO2 mmHg VBG pO2 mmHg VBG HCO3 (22-26) mmol/L VBG O2 Saturation % VBG Base Excess mmol/L Sodium 146 H (135-145) mmol/L Potassium 3.2 L (3.3-5.1) mmol/L Chloride 109 H (96-108) mmol/L Carbon Dioxide 16 L (22-29) mmol/L Anion Gap 24 H (12-20) BUN 34 H (9-16) mg/dL Creatinine 1.48 H (0.5-1.4) mg/dL Estim Creat Clear Calc 48.9 Estimated GFR 46 POC Glucose (60-115) mg/dL Random Glucose 167 H (60-115) mg/dL Calcium 8.8 D (8.4-10.2) mg/dL Magnesium 2.2 (1.6-2.6) mg/dL Total Bilirubin 0.3 (0.0-1.0) mg/dL AST 14 (5-37) U/L ALT 7 (0-40) U/L Alkaline Phosphatase 83 (39-117) U/L Troponin I High Sens 17.3 D (<3.5-35.0) ng/L B-Natriuretic Peptide 169 H (<100) pg/mL Total Protein 7.8 (6.5-8.0) g/dL Albumin 4.0 (3.5-5.0) g/dL Phenytoin (10.0-20.0) ug/mL Ethyl Alcohol mg/dL COVID-19 ([facility]) (Negative) COVID-19 Clin Com 05/18/21 05/18/21 05/18/21 Range/Units 06:05 06:08 06:12 WBC (4.8-10.8) X10*3/uL RBC (4.60-5.80) X10*6/uL Hgb (14.0-18.0) g/dl Hct (42-52) % MCV (80-98) fL MCH (27.0-33.0) pg MCHC (31.0-36.0) g/dl RDW (11.0-16.0) % Plt Count (160-400) X10*3/uL MPV (9.4-12.4) fL Immature Gran % (Auto) (0.0-0.4) % Neut % (Auto) (45-73) % Lymph % (Auto) (20-40) % [place] % (Auto) (2-11) % Eos % (Auto) (0-4) % Baso % (Auto) (0-2) % Lymph # (Auto) (1.2-4.9) X10*3/uL [place] # (Auto) (0.1-1.2) X10*3/uL Eos # (Auto) (0.0-0.4) X10*3/uL Baso # (Auto) (0.0-0.2) X10*3/uL Abs Immat Gran (auto) (0.00-0.03) X10*3/uL Absolute Neuts (auto) (2.0-8.3) X10*3/uL Absolute Nucleated RBC (0.0-0.012) X10*3/uL Nucleated RBC % (auto) (0.0-0.2) /100WBC PT (9.9-13.0) SEC INR (0.9-1.1) VBG pH 7.10 L* (7.32-7.43) VBG pCO2 44 mmHg VBG pO2 174 mmHg VBG HCO3 14 L (22-26) mmol/L VBG O2 Saturation 98.0 % VBG Base Excess -14.9 mmol/L Sodium (135-145) mmol/L Potassium (3.3-5.1) mmol/L Chloride (96-108) mmol/L Carbon Dioxide (22-29) mmol/L Anion Gap (12-20) BUN (9-16) mg/dL Creatinine (0.5-1.4) mg/dL Estim Creat Clear Calc Estimated GFR POC Glucose (60-115) mg/dL Random Glucose (60-115) mg/dL Calcium (8.4-10.2) mg/dL Magnesium (1.6-2.6) mg/dL Total Bilirubin (0.0-1.0) mg/dL AST (5-37) U/L ALT (0-40) U/L Alkaline Phosphatase (39-117) U/L Troponin I High Sens (<3.5-35.0) ng/L B-Natriuretic Peptide (<100) pg/mL Total Protein (6.5-8.0) g/dL Albumin (3.5-5.0) g/dL Phenytoin 7.9 L* (10.0-20.0) ug/mL Ethyl Alcohol < 10 mg/dL COVID-19 ([facility]) (Negative) COVID-19 Clin Com 05/18/21 Range/Units 06:15 WBC (4.8-10.8) X10*3/uL RBC (4.60-5.80) X10*6/uL Hgb (14.0-18.0) g/dl Hct (42-52) % MCV (80-98) fL MCH (27.0-33.0) pg MCHC (31.0-36.0) g/dl RDW (11.0-16.0) % Plt Count (160-400) X10*3/uL MPV (9.4-12.4) fL Immature Gran % (Auto) (0.0-0.4) % Neut % (Auto) (45-73) % Lymph % (Auto) (20-40) % [place] % (Auto) (2-11) % Eos % (Auto) (0-4) % Baso % (Auto) (0-2) % Lymph # (Auto) (1.2-4.9) X10*3/uL [place] # (Auto) (0.1-1.2) X10*3/uL Eos # (Auto) (0.0-0.4) X10*3/uL Baso # (Auto) (0.0-0.2) X10*3/uL Abs Immat Gran (auto) (0.00-0.03) X10*3/uL Absolute Neuts (auto) (2.0-8.3) X10*3/uL Absolute Nucleated RBC (0.0-0.012) X10*3/uL Nucleated RBC % (auto) (0.0-0.2) /100WBC PT (9.9-13.0) SEC INR (0.9-1.1) VBG pH (7.32-7.43) VBG pCO2 mmHg VBG pO2 mmHg VBG HCO3 (22-26) mmol/L VBG O2 Saturation % VBG Base Excess mmol/L Sodium (135-145) mmol/L Potassium (3.3-5.1) mmol/L Chloride (96-108) mmol/L Carbon Dioxide (22-29) mmol/L Anion Gap (12-20) BUN (9-16) mg/dL Creatinine (0.5-1.4) mg/dL Estim Creat Clear Calc Estimated GFR POC Glucose (60-115) mg/dL Random Glucose (60-115) mg/dL Calcium (8.4-10.2) mg/dL Magnesium (1.6-2.6) mg/dL Total Bilirubin (0.0-1.0) mg/dL AST (5-37) U/L ALT (0-40) U/L Alkaline Phosphatase (39-117) U/L Troponin I High Sens (<3.5-35.0) ng/L B-Natriuretic Peptide (<100) pg/mL Total Protein (6.5-8.0) g/dL Albumin (3.5-5.0) g/dL Phenytoin (10.0-20.0) ug/mL Ethyl Alcohol mg/dL COVID-19 ([facility]) Negative (Negative) COVID-19 Clin Com See Note Critical Care Time Critical Care Time Critical Care Time: Yes Total Critical Care Time: 1 Attestation: I personally attest to this time spent taking care of the patient. Discharge Plan Discharge Clinical Impression: Hypoglycemia, Tonic clonic seizures, Hypoxia, CHF (congestive heart failure) Patient Disposition: Admitted As Inpatient
[2021-05-18 05:31] LABS: Glucose, Whole Blood 105 mg/dL (60-115)
[2021-05-18] MEDS: LORazepam 2 MG/ML VIAL IVPUSH (05:52)
[2021-05-18] MEDS: 0.9 % Sodium Chloride 1,000 ML 999 ML IV (06:07)
[2021-05-18] MEDS: Etomidate 20 MG/10 ML VIAL IVPUSH (06:07)
[2021-05-18] MEDS: Rocuronium Bromide 50 MG/5 ML VIAL 120 MG IVPUSH (06:08)
[2021-05-18 06:23] LABS: VBG Base Excess -14.9 mmol/L; VBG HCO3 14 mmol/L (22-26); VBG pCO2 44 mmHg; VBG pO2 174 mmHg
[2021-05-18 06:23] LABS: Glucose, Whole Blood 148 mg/dL (60-115)
[2021-05-18 06:27] LABS: MANUAL DIFF FLAG NO
[2021-05-18 06:30] LABS: Basophils Absolute Auto 0.1 X10*3/uL (0.0-0.2); Eosinophils Absolute Auto 0.3 X10*3/uL (0.0-0.4); Eosinophils Percent Auto 2.6 % (0-4); Hematocrit 33.5 % (42-52); Hemoglobin 9.9 g/dl (14.0-18.0); Imm Gran Abs Auto 0.04 X10*3/uL (0.00-0.03); Imm Gran Pct Auto 0.4 % (0.0-0.4); Lymphocytes Absolute Auto 2.4 X10*3/uL (1.2-4.9); Lymphocytes Percent Auto 23.9 % (20-40); Mean Corpuscular HGB Conc 29.6 g/dl (31.0-36.0); Mean Corpuscular Hemoglobin 25.3 pg (27.0-33.0); Mean Corpuscular Volume 85.7 fL (80-98); Neutrophils Absolute Auto 6.3 X10*3/uL (2.0-8.3); Neutrophils Percent Auto 62.1 % (45-73); Platelet Count 269 X10*3/uL (160-400); Red Blood Count 3.91 X10*6/uL (4.60-5.80); Red Cell Distribution Width 18.1 % (11.0-16.0); White Blood Count 10.2 X10*3/uL (4.8-10.8)
[2021-05-18] MEDS: fentaNYL citrate/NS 1,000 MCG/100 ML PLAST..BAG 2.5 MCG IVCONT (06:31)
--- NOTE | 2021-05-18 06:31 | PC.NURSE ---
05:50AM - witnessed seizure began while Lakeisha (RN) was obtaining labs, Lakeisha Milligan (RN), and additional staff to bedside for assistance. Incontinent Family also present. 05:52AM - Ativan 2mg IV given by Quiana Mares (RN) as ordered by . RSI kit and code cart at bedside. Pt is apnic. Beginning preparation for intubation. Respiratory Therapist at bedside. POC Glucose 148 06:04AM - Ventilation with ambu bag in progress. Chest rise noted bilaterally. NPA & OPA in place. Pulse 92, 100% oxygen saturation, RR 13, BP 139/57. 20g IV access established in left AC by Lakeisha (LILO) & 18g IV access established in right AC by Quiana (LILO). 06:07AM - Normal saline 1 liter initiated. Etomidate 20mg administered by Iris Carreno (RN). 06:08AM - Rocuronium 120mg administered by Iris Carreno (RN) 06:10AM - Intubated: 26 at lip, 8 ET tube, positive color change noted, bilateral breath sounds auscultated. Vent settings: Vt 450mL, Vmax 55L/min, Vsens 2L/min, O2 30%, PEEP 5.0 06:39AM - NG tube placed, awaiting xray confirmation of proper placement.
[2021-05-18 06:35] LABS: INTERNATIONAL NORM RATIO 1.1 (0.9-1.1); Prothrombin Time 12.4 SEC (9.9-13.0)
[2021-05-18] MEDS: Magnesium Sulfate/H2O 2 GM/50 ML PIGGYBACK IV (06:38)
[2021-05-18 06:40] LABS: COVID-19 Test Negative (Negative)
[2021-05-18 06:48] LABS: Ethanol < 10 mg/dL
[2021-05-18 06:48] LABS: Glucose Urine UA NEG (NEG); Leukocyte Esterase Urine NEG (NEG); Nitrite Urine NEG (NEG); Specific Gravity - Urine 1.015 (1.005-1.025); Urine Blood 1+ (NEG); Urine Ketones NEG (NEG); Urine Protein 1+ MG/DL (NEG-TRACE)
[2021-05-18 06:53] LABS: Venous Blood Gas Refer to POC result
[2021-05-18 06:54] LABS: Alanine Aminotransferase 7 U/L (0-40); Alkaline Phosphatase 83 U/L (39-117); Anion Gap 24 (12-20); Aspartate Amino Transferase 14 U/L (5-37); B Type Natriuretic Peptide 169 pg/mL (<100); Bilirubin Total 0.3 mg/dL (0.0-1.0); Blood Urea Nitrogen 34 mg/dL (9-16); Calcium 8.8 mg/dL (8.4-10.2); Carbon Dioxide 16 mmol/L (22-29); Chloride 109 mmol/L (96-108); Creatinine Clr Calc Pharmacy 48.9; Estimated Glomerular Filt Rate 46; Glucose Random 167 mg/dL (60-115); Magnesium 2.2 mg/dL (1.6-2.6); Potassium 3.2 mmol/L (3.3-5.1); Sodium 146 mmol/L (135-145); Total Protein 7.8 g/dL (6.5-8.0); Troponin-I High Sensitivity 17.3 ng/L (<3.5-35.0)
[2021-05-18 06:55] LABS: Appearance Urine CLEAR; Color Urine YELLOW; WBC Urine 0 /HPF (0-4)
[2021-05-18 06:56] LABS: RBC Urine 30-49 /HPF (0); Squamous Epithelial Cell Urine 1+ /LPF
[2021-05-18 07:02] LABS: Phenytoin Dilantin 7.9 ug/mL (10.0-20.0)
[2021-05-18 07:26] LABS: Amphetamine Screen Urine Not Detected (Not Detect); Barbiturates, Urine Not Detected (Not Detect); Benzodiazepines Screen Urine Not Detected (Not Detect); Cannabinoid Screen Urine Not Detected (Not Detect); Cocaine Screen Urine Not Detected (Not Detect); Opiate Screen Urine Not Detected (Not Detect); Phencyclidine Screen Urine Not Detected (Not Detect)
[2021-05-18 07:28] LABS: Lactic Acid 12.9 mmol/L (0.5-2.0)
[2021-05-18] MEDS: propofoL 200 MG/20 ML VIAL 50 MG IVPUSH (07:40)
--- NOTE | 2021-05-18 08:06 | PC.NURSE ---
PT TRANSFER TO ICU, PT GIVEN 50 OF PORPOFOL PRIOR TO TRANSFER, REPORTED OFF THAT PATIENT STILL NEEDS DILANTIN, AND INCREASED FENTINAL DOSING PT SUCTIONED BEFORE TRANSFER. RT THIS RN AND HVAC SPECIALIST ALL PRESENT FOR TRANSPORT
[2021-05-18] MEDS: propofoL 1,000 MG/100 ML VIAL 12.92 MG IVCONT (08:10)
[2021-05-18 08:24] LABS: Reflex Lactate? Lactic Acid Added
[2021-05-18 08:38] LABS: Glucose, Whole Blood 160 mg/dL (60-115)
--- NOTE | 2021-05-18 08:46 | PC.NURSE ---
Addendum entered by Leonard Christensen RN 05/18/21 16:47: 1400 Pt extubated to RA SaO2 98% A&Ox3, passed swallow eval. REceived breathing treatment. Family in, med rec complete. Original Note: Pt came to the unit at 0800 NSR W/ 1 DEGREE AV BLOCK, on fent 50mcg/hr, coughing frequently, pulling towards ET tube. Propofol started at 20mcg/kg/min, titrated up to 40mcg/kg/min, currently on 30mcg/kg/min. Pupils PERRLA 3mm, moves all extrem spontaneously, +cough/gag, clear inline secretions, large oral secretions suctioned with yankeur. sitting high folwers. Bed locked and in lowest position call rae in reach. POC glucose 160. Vent settings ACVC rate 18, Vt 450, Ve 8L/min, Peak pressure 20, FiO2 35% SaO2 100%, ETCO2 38-40, lungs rhoncorus throughout. Skin clear.
[2021-05-18 09:35] LABS: ~Lactic Acid-LAB USE ONLY 3.1 mmol/L (0.5-2.0)
[2021-05-18 09:50] LABS: Cancel Lactic Acid Canceled
--- NOTE | 2021-05-18 10:49 | MHC.CLN ---
PT IS INTUBATED AND SEDATED WITH PROPOFOL NO DIET RX-WILL START NPO DIET IF TF NEEDED; RECOMMEND PROMOTE AT MAX GOAL RATE 65ML/HR TO PROVIDE 1560KCALS (2072KCALS WITH SEDATION; 23.5G/KG), 98G PROTEIN (1.1G/KG), 1309CC FREE WATER FROM FORMULA MONITOR TOLERANCE, RESIDUALS AND LYTES SEE ALSO CLINICAL NUTRITION ASSESSMENT
[2021-05-18] MEDS: propofoL 1,000 MG/100 ML VIAL 19.39 MG IVCONT (11:03)
--- NOTE | 2021-05-18 11:31 | P.HPCC_ITS ---
History of Present Illness Date of Service: 05/18/21 Mr. Weinstein was admitted to ICU this morning after being intubated in the ED after a seizure. The patient is an 81 yo M w PMHx of diabetes, diabetic nephropathy and neuropathy, HTN, CKD, CAD s/p LAD stent, and HFpEF. Also has h/o epilepsy since the age of 8, been on Dilantin since then. Last sz was 24 years ago. About two weeks ago, his Dilantin dose was changed from 200mg qAM/300mg qPM, to 200mg bid. Dr. Johnson is his neurologist. Lives with his at home. Ambulates mostly with a walker. Not very active because of his neuropathy and his leg swelling. He takes pregabalin for the neuropathy, and Lasix and metolazone for his leg swelling. Early this morning, the patient collapsed after getting out of bed. Was unable to stand up. The called a neighbor who checked his sugar and it was about 54. Gave the patient some syrup. The mother called the patient's daughter who found the patient is still on the floor. She called 911. The patient was brought into the ED by ambulance. According to the EMS report, the patient was responsive and answering questions during the ride. On arrival to the ED, the patient was exhibiting what was described as spastic, dyskinetic movements. Heart rate was 110, blood pressure was 159/81, respiratory rate was 20, Sat was 98% on room air. There was no respiratory distress. The patient was reportedly alert but not answering questions from the ED staff, but did respond to the daughter. Exam was otherwise unremarkable, with no focal neurologic deficits. Initial labs were notable for POC of 105 on arrival. Electrolytes were notable for sodium of 146, potassium 3.2, BUN and creatinine 34/1.4 (approximately his baseline), normal LFTs, normal troponin, BNP of 169. Head and C-spine CTs unremarkable. Chest x-ray showed mild interstitial prominence. Sometime not long after the CT, the patient started having a tonic-clonic seizure then became apneic and began to become bradycardic, then began breathing, but was not responding to stimuli, had no gag. It was thought that patient was post-ictal. The decision was made to intubate the trachea for airway protection. Subsequent to that, the Dilantin level came back at 7.9. The patient was loaded with 1 g, and admitted to the ICU on a propofol infusion. In the ICU, the patient appeared well-developed, well-nourished, mildly overweight. Well sedated on propofol 30 mcg. Heart rate 63, blood pressure 109/53. On AC 18/450/28%/+5, respiratory rate was 18, sat was 100%. No jugular venous distention with the head of the bed at 30 degrees. Chest is clear to auscultation with normal expiratory phase. Heart tones barely audible, no murmur or gallop appreciated. Abdomen is benign with good bowel sounds. He has no central edema, maybe 1+ ankle edema. LABORATORY DATA: As noted above, and as below. IMPRESSION: 81 year-old male with diabetes, diabetic nephropathy and neuropathy, HTN, CKD, CAD s/p LAD stent, HFpEF and epilepsy 1. Episode at home appears to have been simple hypoglycemia. 2. By report had a grand mal seizure in the ED. The only readily explainable etiology would be the h/o epilepsy with the low Dilantin level, maybe exace rbated by the temporal hypoglycemic episode -- even though he was definitely not hypoglycemic in the ED. 3. Hyperlactatemia - 2? seizure. No evidence of sepis, no need to repeat. 4. Acute resp failure. 2? airway compromise. Should be easily extubatable. 5. CKD. 6. The dose of Pregabalin he?s on is too high for his renal fxn. His daily dose should be 75 mg total. ADDENDUM: Easily switched to PSV and then extubated without incident at 2pm. Airway is clear, able to say ?eee?, no tracheal sounds. Breathing easy, Sat?s running 98% on RA. ADDENDUM at 17:00: Drinking liquids with no problem. Spoke with Dr. Johnson. We will change the patient's Dilantin dose back to 300/200. I will check another level tomorrow morning. The patient should have his level checked again in 2 weeks, and should make an appointment to see Dr. Johnson in about 2 weeks. Stable for transfer to [facility] [place]. I will sign out to the hospitalists. Critical care time: 60 min. Plus 60 min noncritical care time (telephone d/w ED staff and w Dr. Johnson, and [facility] [place]). ([id number]) [facility], [facility] Past Medical History Medical History (HFpEF) heart failure with preserved ejection fraction BPH (benign prostatic hyperplasia) CAD (coronary artery disease) CHF (congestive heart failure) CKD (chronic kidney disease) Coronary stent patent Diabetes mellitus, type 2 Diabetic nephropathy associated with type 2 diabetes mellitus Diabetic neuropathy associated with type 2 diabetes mellitus Dyslipidemia Epilepsy Hypertension Hypokalemia Neuropathy associated with endocrine disorder Secondary hyperparathyroidism Type 2 diabetes mellitus with hyperglycemia, with long-term current use of insulin Family History Family History Father Diabetes CVD (cardiovascular disease) Mother Diabetes Brother Diabetes Son Thyroid disease Lung disease Psoriasis HTN (hypertension) Surgical History Surgical History Hx of cardiac cath Stented coronary artery Social History Social History Household Members: Spouse and Family Housing: Apartment Do you presently have visiting nurse or other home services: No Alcohol intake: unknown Patient Tobacco Use Status: Never used Tobacco Use of substances other than those prescribed or required for medical reasons: No Have you been hit, kicked, punched, or otherwise hurt by someone within the past year? If so, by whom?: No Do you feel safe in your current relationship?: Yes Is there a partner from a previous relationship who is making you feel unsafe now?: No Are you made to feel afraid or neglected: No Advance Directives: Yes Advance Directives Information Provided: Yes Advance Directives on File: No Advance Directives Date on File: 05/18/21 Do you have thoughts of harming others: None Do you have a plan to hurt others: No Plan Recently lost weight without trying: No Nutrition Risks: No Nutritional Risk service: No Current occupational status: retired Meds Allergies Allergy/AdvReac Type Severity Reaction Status Date / Time codeine [CODEINE] Allergy Unknown UNKNOWN Verified 04/29/21 04:12 lisinopril Allergy Unknown unknown Uncoded 04/29/21 04:12 Active Medications: Current Medications Generic Name Dose Route Start Last Admin Trade Name Freq PRN Reason Stop Dose Admin Propofol 1,000 mg in 100 mls @ 0 mls/hr 05/18/21 07:30 05/18/21 11:03 Diprivan IVCONT 30 mcg/kg/min .Q0M NAYA 19.39 mls/hr Administration Protocol Per Protocol Home Medications Medication Instructions Recorded Confirmed Last Taken Type aspirin 81 mg tablet,delayed 81 mg PO DAILY 08/12/20 05/05/21 Unknown History release pantoprazole 40 mg tablet,delayed 40 mg PO DAILY 08/12/20 05/05/21 Unknown History release rosuvastatin 40 mg tablet 40 mg PO DAILY 08/12/20 05/05/21 Unknown History blood sugar diagnostic #10 ea 09/15/20 05/05/21 Unknown History metoprolol succinate 100 mg 100 mg PO DAILY 09/15/20 05/05/21 Unknown History tablet,extended release 24 hr pen needle, diabetic 32 gauge x #50 ea 09/15/20 05/05/21 Unknown History phenytoin sodium extended 200 mg 200 mg PO BID cap 03/15/21 05/05/21 Unknown History capsule pregabalin 75 mg capsule 75 mg PO BID cap 03/15/21 05/05/21 Unknown History Physical Exam Vital Signs: Vital Signs: Last Vital Signs Pulse 65 05/18/21 11:00 Resp 18 05/18/21 11:00 BP 124/55 L 05/18/21 11:00 Pulse Ox 100 05/18/21 11:00 Body Mass Index 34.0 Results Labs CBC and Chem 7: 05/18/21 06:05 05/18/21 06:05 Labs: Laboratory Results - last 24 hr 05/18/21 05/18/21 05/18/21 05:13 05:55 06:05 MCV 85.7 MCH 25.3 L MCHC 29.6 L RDW 18.1 H Plt Count 269 MPV 11.0 Immature Gran % (Auto) 0.4 Neut % (Auto) 62.1 Lymph % (Auto) 23.9 [place] % (Auto) 10.0 Eos % (Auto) 2.6 Baso % (Auto) 1.0 Lymph # (Auto) 2.4 [place] # (Auto) 1.0 Eos # (Auto) 0.3 Baso # (Auto) 0.1 Abs Immat Gran (auto) 0.04 H Absolute Neuts (auto) 6.3 Absolute Nucleated RBC 0.000 Nucleated RBC % (auto) 0.0 PT INR VBG pH VBG pCO2 VBG pO2 VBG HCO3 VBG O2 Saturation VBG Base Excess Anion Gap BUN Creatinine Estim Creat Clear Calc Estimated GFR POC Glucose 105 148 H Random Glucose Lactic Acid Lactic Acid Fup @ 2Hr Calcium Magnesium Total Bilirubin AST ALT Alkaline Phosphatase Troponin I High Sens B-Natriuretic Peptide Total Protein Albumin Urine Color Urine Appearance Urine pH Ur Specific [place] Urine Protein Urine Glucose (UA) Urine Ketones Urine Blood Urine Nitrite Ur Leukocyte Esterase Urine RBC Urine WBC Ur Squamous Epith Cells Urine Bacteria Urine Opiates Screen Ur Barbiturates Screen Phenytoin Ur Phencyclidine Scrn Ur Amphetamines Screen U Benzodiazepines Scrn Urine Cocaine Screen U Marijuana (THC) Screen Ethyl Alcohol COVID-19 (ROMERO) [employer] 05/18/21 05/18/21 05/18/21 06:05 06:05 06:05 MCV MCH MCHC RDW Plt Count MPV Immature Gran % (Auto) Neut % (Auto) Lymph % (Auto) [place] % (Auto) Eos % (Auto) Baso % (Auto) Lymph # (Auto) [place] # (Auto) Eos # (Auto) Baso # (Auto) Abs Immat Gran (auto) Absolute Neuts (auto) Absolute Nucleated RBC Nucleated RBC % (auto) PT 12.4 INR 1.1 VBG pH VBG pCO2 VBG pO2 VBG HCO3 VBG O2 Saturation VBG Base Excess Anion Gap 24 H BUN 34 H Creatinine 1.48 H Estim Creat Clear Calc 48.9 Estimated GFR 46 POC Glucose Random Glucose 167 H Lactic Acid 12.9 H* Lactic Acid Fup @ 2Hr Calcium 8.8 D Magnesium 2.2 Total Bilirubin 0.3 AST 14 ALT 7 Alkaline Phosphatase 83 Troponin I High Sens B-Natriuretic Peptide Total Protein 7.8 Albumin 4.0 Urine Color Urine Appearance Urine pH Ur Specific [place] Urine Protein Urine Glucose (UA) Urine Ketones Urine Blood Urine Nitrite Ur Leukocyte Esterase Urine RBC Urine WBC Ur Squamous Epith Cells Urine Bacteria Urine Opiates Screen Ur Barbiturates Screen Phenytoin Ur Phencyclidine Scrn Ur Amphetamines Screen U Benzodiazepines Scrn Urine Cocaine Screen U Marijuana (THC) Screen Ethyl Alcohol COVID-19 (ROMERO) [employer] 05/18/21 05/18/21 05/18/21 06:05 06:05 06:08 MCV MCH MCHC RDW Plt Count MPV Immature Gran % (Auto) Neut % (Auto) Lymph % (Auto) [place] % (Auto) Eos % (Auto) Baso % (Auto) Lymph # (Auto) [place] # (Auto) Eos # (Auto) Baso # (Auto) Abs Immat Gran (auto) Absolute Neuts (auto) Absolute Nucleated RBC Nucleated RBC % (auto) PT INR VBG pH VBG pCO2 VBG pO2 VBG HCO3 VBG O2 Saturation VBG Base Excess Anion Gap BUN Creatinine Estim Creat Clear Calc Estimated GFR POC Glucose Random Glucose Lactic Acid Lactic Acid Fup @ 2Hr Calcium Magnesium Total Bilirubin AST ALT Alkaline Phosphatase Troponin I High Sens 17.3 D B-Natriuretic Peptide 169 H Total Protein Albumin Urine Color Urine Appearance Urine pH Ur Specific [place] Urine Protein Urine Glucose (UA) Urine Ketones Urine Blood Urine Nitrite Ur Leukocyte Esterase Urine RBC Urine WBC Ur Squamous Epith Cells Urine Bacteria Urine Opiates Screen Ur Barbiturates Screen Phenytoin 7.9 L* Ur Phencyclidine Scrn Ur Amphetamines Screen U Benzodiazepines Scrn Urine Cocaine Screen U Marijuana (THC) Screen Ethyl Alcohol < 10 COVID-19 (ROMERO) COVID-19 Clin Com 05/18/21 05/18/21 05/18/21 06:12 06:15 06:41 MCV MCH MCHC RDW Plt Count MPV Immature Gran % (Auto) Neut % (Auto) Lymph % (Auto) [place] % (Auto) Eos % (Auto) Baso % (Auto) Lymph # (Auto) [place] # (Auto) Eos # (Auto) Baso # (Auto) Abs Immat Gran (auto) Absolute Neuts (auto) Absolute Nucleated RBC Nucleated RBC % (auto) PT INR VBG pH 7.10 L* VBG pCO2 44 VBG pO2 174 VBG HCO3 14 L VBG O2 Saturation 98.0 VBG Base Excess -14.9 Anion Gap BUN Creatinine Estim Creat Clear Calc Estimated GFR POC Glucose Random Glucose Lactic Acid Lactic Acid Fup @ 2Hr Calcium Magnesium Total Bilirubin AST ALT Alkaline Phosphatase Troponin I High Sens B-Natriuretic Peptide Total Protein Albumin Urine Color YELLOW Urine Appearance CLEAR Urine pH 6.0 Ur Specific [place] 1.015 Urine Protein 1+ H Urine Glucose (UA) NEG Urine Ketones NEG Urine Blood 1+ H Urine Nitrite NEG Ur Leukocyte Esterase NEG Urine RBC 30-49 H Urine WBC 0 Ur Squamous Epith Cells 1+ Urine Bacteria NONE Urine Opiates Screen Ur Barbiturates Screen Phenytoin Ur Phencyclidine Scrn Ur Amphetamines Screen U Benzodiazepines Scrn Urine Cocaine Screen U Marijuana (THC) Screen Ethyl Alcohol COVID-19 (ROMERO) Negative COVID-19 Clin Com See Note 05/18/21 05/18/21 05/18/21 06:41 08:36 08:53 MCV MCH MCHC RDW Plt Count MPV Immature Gran % (Auto) Neut % (Auto) Lymph % (Auto) [place] % (Auto) Eos % (Auto) Baso % (Auto) Lymph # (Auto) [place] # (Auto) Eos # (Auto) Baso # (Auto) Abs Immat Gran (auto) Absolute Neuts (auto) Absolute Nucleated RBC Nucleated RBC % (auto) PT INR VBG pH VBG pCO2 VBG pO2 VBG HCO3 VBG O2 Saturation VBG Base Excess Anion Gap BUN Creatinine Estim Creat Clear Calc Estimated GFR POC Glucose 160 H Random Glucose Lactic Acid Lactic Acid Fup @ 2Hr 3.1 H* Calcium Magnesium Total Bilirubin AST ALT Alkaline Phosphatase Troponin I High Sens B-Natriuretic Peptide Total Protein Albumin Urine Color Urine Appearance Urine pH Ur Specific [place] Urine Protein Urine Glucose (UA) Urine Ketones Urine Blood Urine Nitrite Ur Leukocyte Esterase Urine RBC Urine WBC Ur Squamous Epith Cells Urine Bacteria Urine Opiates Screen Not Detected Ur Barbiturates Screen Not Detected Phenytoin Ur Phencyclidine Scrn Not Detected Ur Amphetamines Screen Not Detected U Benzodiazepines Scrn Not Detected Urine Cocaine Screen Not Detected U Marijuana (THC) Screen Not Detected Ethyl Alcohol COVID-19 (ROMERO) COVID-19 Clin Com Imaging Radiologist's Impressions: Impressions Cervical Spine CT 05/18/21 05:10 IMPRESSION: 1. Head: Limited evaluation in some regions due to motion artifact. No definite acute findings identified. 2. Cervical spine: No acute findings identified. Degenerative changes as noted above. Chest X-Ray 05/18/21 05:10 IMPRESSION: Mild interstitial prominence which may reflect developing interstitial edema in the proper clinical setting. No focal consolidation. Head CT 05/18/21 05:10 IMPRESSION: 1. Head: Limited evaluation in some regions due to motion artifact. No definite acute findings identified. 2. Cervical spine: No acute findings identified. Degenerative changes as noted above. Critical Care Time Critical Care Time (minutes): 60
[2021-05-18 12:28] LABS: Glucose, Whole Blood 166 mg/dL (60-115)
[2021-05-18] MEDS: Albuterol Sulfate (0.083%) 2.5 MG/3 ML VIAL.NEB INHALE (14:43)
--- NOTE | 2021-05-18 15:50 | MHC.CM.PN ---
Met with pt and dtr Sally to review d/c plan. Pt is Chinese speaking - dtr able to assist with communications: Pt resides with his and is independent with care needs at baseline. He has a working glucometer and walker and does not have services at the present time. Family assists with transportation needs. HCP updated, IMM completed. At this time, the d/c plan is for pt to return to home with family support: if this changes, CM will follow for amendments to plan.
[2021-05-18] MEDS: Heparin Sodium,Porcine 5,000 UNIT/ML VIAL 5000 UNIT SUBCUT (18:32)
[2021-05-18] MEDS: Pregabalin 50 MG CAPSULE PO (20:45)
[2021-05-18] MEDS: Phenytoin Sodium Extended 100 MG CAPSULE 200 MG PO (20:47)
[2021-05-18] MEDS: Insulin Lispro 100 UNIT/ML 3 ML VIAL SUBCUT (20:59)
[2021-05-18 21:00] LABS: Glucose, Whole Blood 205 mg/dL (60-115)
[2021-05-19] VITALS: BP 139/64; PULSE 77; RESP 17; TEMP 37.1; O2SAT 99
[2021-05-19 04:00] VITALS: BP 138/62; PULSE 79; RESP 16; TEMP 37.1; O2SAT 98
[2021-05-19] MEDS: Heparin Sodium,Porcine 5,000 UNIT/ML VIAL 5000 UNIT SUBCUT ×2 (05:34→18:01)
[2021-05-19] MEDS: Omeprazole 20 MG CAPSULE.DR PO (05:34)
[2021-05-19 05:38] VITALS: BMI 33.3
[2021-05-19 06:15] LABS: Phenytoin Dilantin 14.5 ug/mL (10.0-20.0)
[2021-05-19 06:16] LABS: Anion Gap 10 (12-20); Blood Urea Nitrogen 26 mg/dL (9-16); Calcium 8.6 mg/dL (8.4-10.2); Carbon Dioxide 27 mmol/L (22-29); Chloride 112 mmol/L (96-108); Creatinine Clr Calc Pharmacy 60.7; Estimated Glomerular Filt Rate 59; Glucose Random 157 mg/dL (60-115); Sodium 145 mmol/L (135-145)
[2021-05-19 07:37] LABS: Glucose, Whole Blood 160 mg/dL (60-115)
[2021-05-19 08:16] VITALS: BP 138/62; PULSE 85
[2021-05-19] MEDS: Isosorbide Mononitrate 30 MG TAB.ER.24H PO (08:16)
[2021-05-19] MEDS: Atorvastatin Calcium 80 MG TABLET PO (08:16)
[2021-05-19] MEDS: Pregabalin 25 MG CAPSULE PO (08:16)
[2021-05-19] MEDS: Furosemide 40 MG TABLET 80 MG PO ×2 (08:16→18:03)
[2021-05-19 08:17] VITALS: BP 138/62; PULSE 91
[2021-05-19] MEDS: Insulin Lispro 100 UNIT/ML 3 ML VIAL SUBCUT ×4 (08:17→20:55)
[2021-05-19] MEDS: Phenytoin Sodium Extended 100 MG CAPSULE 300 MG PO (08:17)
[2021-05-19] MEDS: Tamsulosin HCL 0.4 MG CAPSULE PO (08:17)
[2021-05-19] MEDS: Metoprolol Succinate ER 100 MG TAB.ER.24H PO (08:17)
[2021-05-19] MEDS: Aspirin Enteric Coated 81 MG TABLET.DR PO (08:17)
[2021-05-19 11:15] LABS: Estimated Average Glucose 163 mg/dL; Hemoglobin A1c % 7.3 %
[2021-05-19 11:32] LABS: Glucose, Whole Blood 182 mg/dL (60-115)
--- NOTE | 2021-05-19 12:12 | MHC.CM.PN ---
Addendum entered by Martina Finney 05/19/21 16:10: Call placed to pt's dtr Sally who will pick patient up whenever he is ready. Message, including Sally's number given to ICU - awaiting finalization of MD d/c process. Original Note: Pt medically ready to d/c today per MD: no new needs assessed: family will transport pt to home
[2021-05-19 16:08] LABS: Glucose, Whole Blood 170 mg/dL (60-115)
--- NOTE | 2021-05-19 17:23 | HO.PM.IMPN ---
Subjective Subjective Date of Service: 05/19/21 Interval History: Seen in f/u for seizure, hypoglycemia. Intubated and extubated for airway protection, no eizure overnight, and sugars have not been very high. He is supposed to be on Humalin R 500, 100 units at lunch, 40 in morning and 15 at dinner, states that he gets frequent hypoglycemia. he is only on SSI here Review of Systems Gen: no fever Resp: no sob, no cough CV: no chest, no GIRALDO, no leg edema GI: No n/v, no abd pain Neuro: No confusion Physical Exam Vital Signs: Vital Signs: Last Vital Signs Temp 98.7 F 05/19/21 04:00 Pulse 91 05/19/21 08:17 Resp 16 05/19/21 04:00 BP 138/62 05/19/21 08:17 Pulse Ox 98 05/19/21 04:00 Body Mass Index 33.3 Const: Other: General: AO X 3, no acute distress Resp: CTA bilateral CVS: S1,S2,RRR GI: +BS, NT, no distention Skin: No rash Neuro: motor grossly intact Psych: appropriate affect Objective Data Current Medications Generic Name Dose Route Start Last Admin Trade Name Freq PRN Reason Stop Dose Admin Albuterol Sulfate 2.5 mg 05/18/21 14:10 05/18/21 14:43 Albuterol Sulfate (0.083%) 2.5 Mg/3 Ml Vial.Neb INHALE 2.5 mg RQ4H PRN Administration Wheezing Aspirin 81 mg 05/19/21 09:00 05/19/21 08:17 Aspirin Enteric Coated 81 Mg Tablet. PO 81 mg DAILY NAYA Administration Atorvastatin Calcium 80 mg 05/19/21 09:00 05/19/21 08:16 Atorvastatin Calcium 80 Mg Tablet PO 80 mg DAILY NAYA Administration Furosemide 80 mg 05/19/21 08:00 05/19/21 08:16 Furosemide 40 Mg Tablet PO 80 mg BIDWM NAYA Administration Protocol Heparin Sodium (Porcine) 5,000 unit 05/18/21 18:00 05/19/21 05:34 Heparin Sodium,Porcine 5,000 Unit/Ml Vial SUBCUT 5,000 unit Q12H NAYA Administration Propofol 1,000 mg in 100 mls @ 0 mls/hr 05/18/21 07:30 05/18/21 13:43 Diprivan IVCONT Infused .Q0M NAYA Titration Protocol Per Protocol Insulin Human Lispro 0 unit 05/18/21 21:00 05/19/21 13:17 Insulin Lispro 100 Unit/Ml 3 Ml Vial SUBCUT 2 unit QIDACHS [facility] Administration Protocol Isosorbide Mononitrate 30 mg 05/19/21 09:00 05/19/21 08:16 Isosorbide Mononitrate 30 Mg Tab.Er.24h PO 30 mg DAILY NAYA Administration Protocol Metoprolol Succinate 100 mg 05/19/21 09:00 05/19/21 08:17 Metoprolol Succinate Er 100 Mg Tab.Er.24h PO 100 mg DAILY NAYA Administration Protocol Nitroglycerin 0.4 mg 05/18/21 17:30 Nitroglycerin 0.4 Mg Tab.Subl SUBLINGUAL Q5MX3 PRN Chest Pain Omeprazole 20 mg 05/19/21 06:30 05/19/21 05:34 Omeprazole 20 Mg Capsule.Dr PO 20 mg DAILY@0630 [facility] Administration Phenytoin Sodium 300 mg 05/19/21 09:00 05/19/21 08:17 Phenytoin Sodium Extended 100 Mg Capsule PO 300 mg DAILY NAYA Administration Phenytoin Sodium 200 mg 05/18/21 21:00 05/18/21 20:47 Phenytoin Sodium Extended 100 Mg Capsule PO 200 mg BEDTIME NAYA Administration Pregabalin 25 mg 05/19/21 09:00 05/19/21 08:16 Pregabalin 25 Mg Capsule PO 25 mg DAILY NAYA Administration Pregabalin 50 mg 05/18/21 21:00 05/18/21 20:45 Pregabalin 50 Mg Capsule PO 50 mg BEDTIME NAYA Administration Tamsulosin HCl 0.4 mg 05/19/21 09:00 05/19/21 08:17 Tamsulosin Hcl 0.4 Mg Capsule PO 0.4 mg DAILY [facility] Administration Labs CBC & Chem 7: 05/18/21 06:05 05/19/21 05:34 Labs: Laboratory Results - last 24 hr 05/18/21 05/19/21 05/19/21 20:41 05:34 07:34 Sodium 145 Potassium 4.0 D Chloride 112 H Carbon Dioxide 27 Anion Gap 10 L BUN 26 H Creatinine 1.18 Estim Creat Clear Calc 60.7 Estimated GFR 59 POC Glucose 205 H 160 H Random Glucose 157 H Estimat Average Glucose Hemoglobin A1c % Calcium 8.6 Phenytoin 14.5 05/19/21 05/19/21 05/19/21 10:41 11:26 16:05 Sodium Potassium Chloride Carbon Dioxide Anion Gap BUN Creatinine Estim Creat Clear Calc Estimated GFR POC Glucose 182 H 170 H Random Glucose Estimat Average Glucose 163 Hemoglobin A1c % 7.3 Calcium Phenytoin Microbiology Microbiology Results: Microbiology 05/18/21 06:09 Blood Culture - Preliminary Blood - Venous Prelim: GPC Gram Stain only 05/18/21 06:05 Blood Culture - Preliminary Blood - Venous No growth after 24 hours. Quality Stroke Does the patient have a stroke diagnosis?: No VTE Prior VTE?: No VTE Risk Level:: Medical - moderate - high VTE Device Contraindication: N/A - Device Ordered VTE Drug Contraindication: N/A - Med Ordered Assessment and Plan (1) Hypoglycemia: Status: Acute (2) Tonic clonic seizures: Status: Acute Assessment and Plan: Seizure possiblly d/t hypogelycemia Hypoglycemia--on too much insulin A1C1 plan: to go back on prior dilantin regimen Monitor sugars and amount of insulin requiring and adjust insulin before dischare 1/2 gram positive cooci bactermia, likely contamination, no fever, monitor no Abx for now.
[2021-05-19 19:35] VITALS: BP 166/85; PULSE 80; RESP 18; TEMP 36.9; O2SAT 99
[2021-05-19 19:43] LABS: Glucose, Whole Blood 179 mg/dL (60-115)
[2021-05-19] MEDS: Pregabalin 50 MG CAPSULE PO (20:54)
[2021-05-19] MEDS: Phenytoin Sodium Extended 100 MG CAPSULE 200 MG PO (20:54)
[2021-05-19 23:23] VITALS: BP 170/91; PULSE 84; RESP 18; TEMP 37.1; O2SAT 96
[2021-05-20 00:05] VITALS: BP 138/72; RESP 18
[2021-05-20] MEDS: Albuterol Sulfate (0.083%) 2.5 MG/3 ML VIAL.NEB INHALE (00:31)
[2021-05-20 00:32] VITALS: PULSE 76; O2SAT 98
[2021-05-20 03:14] VITALS: BP 162/77; PULSE 92; RESP 20; TEMP 37.1; O2SAT 100
[2021-05-20 05:23] VITALS: BMI 33.8
[2021-05-20] MEDS: Heparin Sodium,Porcine 5,000 UNIT/ML VIAL 5000 UNIT SUBCUT (05:54)
[2021-05-20] MEDS: Omeprazole 20 MG CAPSULE.DR PO (05:54)
[2021-05-20 07:12] LABS: Glucose, Whole Blood 160 mg/dL (60-115)
[2021-05-20] MEDS: Insulin Lispro 100 UNIT/ML 3 ML VIAL SUBCUT ×2 (07:57→11:48)
[2021-05-20] MEDS: Furosemide 40 MG TABLET 80 MG PO (07:57)
[2021-05-20 07:58] VITALS: BP 162/77; PULSE 92
[2021-05-20] MEDS: Aspirin Enteric Coated 81 MG TABLET.DR PO (07:58)
[2021-05-20] MEDS: Phenytoin Sodium Extended 100 MG CAPSULE 300 MG PO (07:58)
[2021-05-20] MEDS: Isosorbide Mononitrate 30 MG TAB.ER.24H PO (07:58)
[2021-05-20] MEDS: Metoprolol Succinate ER 100 MG TAB.ER.24H PO (07:58)
[2021-05-20] MEDS: Atorvastatin Calcium 80 MG TABLET PO (07:58)
[2021-05-20] MEDS: Tamsulosin HCL 0.4 MG CAPSULE PO (07:58)
[2021-05-20] MEDS: Pregabalin 25 MG CAPSULE PO (07:58)
[2021-05-20 08:00] VITALS: BP 160/78; PULSE 76; RESP 20; TEMP 36.7; O2SAT 97
--- NOTE | 2021-05-20 09:58 | PM.DS ---
DS: Providers Provider Date of Service: 05/20/21 Date of admission: 05/18/21 06:30 Primary care physician: Pushpa Ruvalcaba MD DS: Medications Discharge Medications Home Medications: Home Medications Medication Instructions Recorded Confirmed aspirin 81 mg tablet,delayed 81 mg PO DAILY 08/12/20 05/18/21 release pantoprazole 40 mg tablet,delayed 40 mg PO DAILY 08/12/20 05/18/21 release rosuvastatin 40 mg tablet 40 mg PO DAILY 08/12/20 05/18/21 blood sugar diagnostic #10 ea 09/15/20 05/05/21 metoprolol succinate 100 mg 100 mg PO DAILY 09/15/20 05/18/21 tablet,extended release 24 hr pen needle, diabetic 32 gauge x #50 ea 09/15/20 05/05/21 phenytoin sodium extended 200 mg 200 mg PO BID cap 03/15/21 05/18/21 capsule pregabalin 75 mg capsule 75 mg PO BID cap 03/15/21 05/18/21 Previous Rx's Medication Instructions Recorded tamsulosin 0.4 mg capsule 0.4 mg PO DAILY 90 Days #90 cap 10/01/20 furosemide 80 mg tablet 80 mg PO BID #180 tab 12/29/20 nitroglycerin 0.4 mg sublingual 0.4 mg SUBLINGUAL .COMPLEX #75 tab 02/19/21 tablet isosorbide mononitrate 30 mg 30 mg PO DAILY 30 Days #30 tab 04/27/21 tablet,extended release 24 hr BD Nicole 2nd Gen Pen Needle 32 #100 ea NS 05/05/21 gauge x 5/32 Humulin R U-500 (Conc) Kwikpen 500 See Rx Instructions SUBCUT .3 05/05/21 unit/mL (3 mL) subcutaneous times a day 30 Days #12 ml NS DS: Summary Hospital Course Hospital Course: Mr. Weinstein was admitted to ICU on 05/18/21 after being intubated in the ED after a seizure. The patient is an 81 yo M w PMHx of diabetes, diabetic nephropathy and neuropathy, HTN, CKD, CAD s/p LAD stent, and HFpEF. Also has h/o epilepsy since the age of 8, been on Dilantin since then. Last sz was 24 years ago. About two weeks ago, his Dilantin dose was changed from 200mg qAM/300mg qPM, to 200mg bid. Dr. Johnosn is his neurologist. Lives with his at home. Ambulates mostly with a walker. Not very active because of his neuropathy and his leg swelling. He takes pregabalin for the neuropathy, and Lasix and metolazone for his leg swelling. Early this morning, the patient collapsed after getting out of bed. Was unable to stand up. The called a neighbor who checked his sugar and it was about 54. Gave the patient some syrup. The mother called the patient's daughter who found the patient is still on the floor. She called 911. The patient was brought into the ED by ambulance. According to the EMS report, the patient was responsive and answering questions during the ride. On arrival to the ED, the patient was exhibiting what was described as spastic, dyskinetic movements. Heart rate was 110, blood pressure was 159/81, respiratory rate was 20, Sat was 98% on room air. There was no respiratory distress. The patient was reportedly alert but not answering questions from the ED staff, but did respond to the daughter. Exam was otherwise unremarkable, with no focal neurologic deficits. Initial labs were notable for POC of 105 on arrival. Electrolytes were notable for sodium of 146, potassium 3.2, BUN and creatinine 34/1.4 (approximately his baseline), normal LFTs, normal troponin, BNP of 169. Head and C-spine CTs unremarkable. Chest x-ray showed mild interstitial prominence. Sometime not long after the CT, the patient started having a tonic-clonic seizure then became apneic and began to become bradycardic, then began breathing, but was not responding to stimuli, had no gag. It was thought that patient was post-ictal. The decision was made to intubate the trachea for airway protection. Subsequent to that, the Dilantin level came back at 7.9. The patient was loaded with 1 g, and admitted to the ICU on a propofol infusion. In the ICU, the patient appeared well-developed, well-nourished, mildly overweight. Well sedated on propofol 30 mcg. Heart rate 63, blood pressure 109/53. On AC 18/450/28%/+5, respiratory rate was 18, sat was 100%. No jugular venous distention with the head of the bed at 30 degrees. Chest is clear to auscultation with normal expiratory phase. Heart tones barely audible, no murmur or gallop appreciated. Abdomen is benign with good bowel sounds. He has no central edema, maybe 1+ ankle edema. LABORATORY DATA: As noted above, and as below. At 2pm, Easily switched to PSV and then extubated without incident Airway is clear, able to say ?eee?, no tracheal sounds. Breathing easy, Sat?s running 98% on RA. at 17:00: Drinking liquids with no problem. Spoke with Dr. Johnson. change the patient's Dilantin dose back to 300/200. . The patient should have his level checked again in 2 weeks, and should make an appointment to see Dr. Johnson in about 2 weeks. 05/19/21 No issues, no siezure overnight, is alert and oreinted. Dilantin level is 14.5 and will continue present dose and to follow up with Dr. Venegas There has not been any further episode of hypoglycemia in the hospital, suspect hypoglycemia probably trigered by seizure rather than the other way around Final Diagnoses: IMPRESSION: 81 year-old male with diabetes, diabetic nephropathy and neuropathy, HTN, CKD, CAD s/p LAD stent, HFpEF and epilepsy 1. Episode at home appears to have been simple hypoglycemia. 2. By report had a grand mal seizure in the ED. The only readily explainable etiology would be the h/o epilepsy with the low Dilantin level, maybe exacerbated by the temporal hypoglycemic episode -- even though he was definitely not hypoglycemic in the ED. 3. Hyperlactatemia - 2? seizure. No evidence of sepis, no need to repeat. 4. Acute resp failure. 2? airway compromise. Should be easily extubatable. 5. CKD. 6. The dose of Pregabalin he?s on is too high for his renal fxn. His daily dose should be 75 mg total. Time Spent with Patient Time attestation: Total time spent providing and/or coordinating discharge services: Discharge coordination time: Greater than 30 minutes Quality: Stroke Does the patient have a stroke diagnosis?: No Physical Exam Vital Signs: Vital Signs: Last Vital Signs Temp 98.7 F 05/19/21 04:00 Pulse 91 05/19/21 08:17 Resp 16 05/19/21 04:00 BP 138/62 05/19/21 08:17 Pulse Ox 98 05/19/21 04:00 Body Mass Index 33.3 Const: Other: Constitutional Awake and Alert, No apparent distress Neck Supple, No lymphadenopathy Cardiovascular RRR, No M/R/G, S1 S2, No S3 S4, No pedal edema Respiratory Lungs clear, No respiratory distress Gastrointestinal Non tender, Non-distended Skin No rash Neurological Alert & oriented x3 Psychological Appropriate affect DS: Data Data Completed and Pending Labs on day of discharge: Laboratory Results - last 24 hr 05/18/21 05/18/21 05/19/21 12:25 20:41 05:34 Sodium 145 Potassium 4.0 D Chloride 112 H Carbon Dioxide 27 Anion Gap 10 L BUN 26 H Creatinine 1.18 Estim Creat Clear Calc 60.7 Estimated GFR 59 POC Glucose 166 H 205 H Random Glucose 157 H Calcium 8.6 Phenytoin 14.5 05/19/21 07:34 Sodium Potassium Chloride Carbon Dioxide Anion Gap BUN Creatinine Estim Creat Clear Calc Estimated GFR POC Glucose 160 H Random Glucose Calcium Phenytoin Preliminary micro results at discharge 05/18/21 06:09 Blood Culture - Preliminary Blood - Venous No growth after 24 hours. 05/18/21 06:05 Blood Culture - Preliminary Blood - Venous No growth after 24 hours. Discharge Plan Discharge Anticipated Discharge Date/Time: 05/20/21 15:09 Patient Disposition: Home Health Service Discharge Diagnosis: Seizure, Hypoglycemia Referrals: Pushpa Ruvalcaba MD [Primary Care Provider] - 1 Week Discharge Medications: New phenytoin sodium extended [Dilantin Extended] 100 mg Capsule 300 mg PO DAILY Qty: 30 RF: 0 phenytoin sodium extended [Dilantin Extended] 100 mg Capsule 200 mg PO BEDTIME Qty: 30 RF: 0 insulin aspart U-100 [Novolog U-100 Insulin aspart] 100 unit/mL solution 1 sliding scale dose subcut QIDACHS MDD 40 units Qty: 10 RF: 2 Continued tamsulosin 0.4 mg capsule 0.4 mg PO DAILY 90 Days Qty: 90 RF: 2 furosemide 80 mg tablet 80 mg PO BID Qty: 180 RF: 1 nitroglycerin 0.4 mg tablet, sublingual 0.4 mg sublingual .COMPLEX Qty: 75 RF: 3 isosorbide mononitrate 30 mg tablet extended release 24 hr 30 mg PO DAILY 30 Days Qty: 30 RF: 5 (DME) pen needle, diabetic [BD Nicole 2nd Gen Pen Needle] 32 gauge x 5/32 needle See Rx Instructions .MEDSUPPLY Qty: 100 RF: 6 (DME) blood sugar diagnostic Strip See Rx Instructions ea Not Applicable TID Qty: 10 RF: 0 metoprolol succinate 100 mg tablet extended release 24 hr 100 mg PO DAILY RF: 0 (DME) pen needle, diabetic 32 gauge x 5/32 needle See Rx Instructions ea subcut .MEDSUPPLY Qty: 50 RF: 0 aspirin [Adult Low Dose Aspirin] 81 mg tablet,delayed release (DR/EC) 81 mg PO DAILY RF: 0 rosuvastatin 40 mg tablet 40 mg PO DAILY RF: 0 pantoprazole 40 mg tablet,delayed release (DR/EC) 40 mg PO DAILY RF: 0 pregabalin 75 mg capsule 75 mg PO BID RF: 0 Discontinued phenytoin sodium extended 200 mg capsule 200 mg PO BID RF: 0 Humulin R U-500 (Conc) Kwikpen 500 unit/mL (3 mL) insulin pen See Rx Instructions subcut .3 times a day 30 Days Qty: 12 RF: 5 No Action Lantus Solostar U-100 Insulin 100 unit/mL (3 mL) insulin pen 14 unit subcut QAM Qty: 15 RF: 3 Discharge Orders: Discharge Order (Routine); Ordered 05/20/21 Ordered By: Leonard Santos Diet: advance to usual diet and diabetic diet Activity on Discharge: As tolerated Stand Alone Forms: Patient Portal Discharge page Other Ambulatory Orders: Phenytoin Dilantin (Routine) Timeframe: 2 Weeks Facility: [facility] - Location: Laboratory Ordered By: Leonard Santos Care Plan Goals: prevent further seizure and low sugars Health Concerns: Seizures and Hypoglycemia Plan of Treatment: Take Phenytoin 300 mg in the morning and 200 at night Stop using insulin U-500, Start Using Humalog quick pen with the following direction Less than 110 (units): 0 111 to 150 - units: 0 151 to 200 - units: 2 201 to 250 - units: 4 251 to 300 - units: 6 301 to 350 - units: 8 350 - units: 10, Call your Doctor, if sugar is low <70 drink a cup of oragne juice and recheck in 15 minutes and if still low drink 1 more cup of orange juice and if it is still low call [address] Venegas in 2 weeks, check Phenytoin level in 2 weeks Assessment: As above Discharge Date/Time: 05/20/21 16:10
[2021-05-20 11:04] VITALS: BP 163/71; PULSE 77; RESP 20; TEMP 36.8; O2SAT 98
[2021-05-20 11:17] LABS: Glucose, Whole Blood 183 mg/dL (60-115)
--- NOTE | 2021-05-20 11:21 | MHC.CM.PN ---
PT CLEARED TO [facility] TODAY WITH VISITING NURSE SERVICES. REFERRAL SENT, AWAITING RESPONSES.
--- NOTE | 2021-05-23 02:17 | P.EN_ITS ---
Event Note Date of Service: 05/23/21 Event Note: Positive Blood Cultures: pt's Blood cx drawn on 05/19/21 growing gram positive rods; Pending final results; Called pt on his cell phone - did not picker tender helper; ;left voice message. Will pass on to Dr Santos
== END 2021-05-20 16:10 | disposition home health service (06) | DRG 637 ==
LOC: HO.ED 06:39 → HO.EDOVER 06:45 → HO.ICU 07:12 → HO.IMC 05-19 19:19
PROVIDERS: Anesthesiology; Admitting Provider Physician Assistant Medical; Emergency Provider Student in an Organized Health Care Education/Training Program; PCP Internal Medicine; Visit Provider Internal Medicine
DX: E11.649 Type 2 diabetes mellitus with hypoglycemia without coma (principal); J96.01 Acute respiratory failure with hypoxia; I13.0 Hypertensive heart and chronic kidney disease with heart failure and stage 1 through stage 4 chronic kidney disease, or unspecified chronic kidney disease; I50.32 Chronic diastolic (congestive) heart failure; E11.42 Type 2 diabetes mellitus with diabetic polyneuropathy; I25.10 Atherosclerotic heart disease of native coronary artery without angina pectoris; E11.22 Type 2 diabetes mellitus with diabetic chronic kidney disease; N18.9 Chronic kidney disease, unspecified; G40.909 Epilepsy, unspecified, not intractable, without status epilepticus; Z20.822 Contact with and (suspected) exposure to COVID-19; Z79.4 Long term (current) use of insulin; Z79.899 Other long term (current) drug therapy
CPT/HCPCS: 36415; 70450; 71045; 72125; 80048; 80053; 80185; 80307; 81001; 82077; 82803; 82947; 83036; 83605; 83735; 83880; 84484; 85025; 85610; 87040; 87076; 87147; 87185; 87205; 87635; 93005; 94002; 94003; 94640; 94799; 99285; C1758; J2060; J3010; J3475

== ENCOUNTER 2021-06-03 07:56 | Outpatient (REF) | payer MEDICARE, MEDICAID, SELFPAY ==
[2021-06-03 08:41] LABS: Estimated Average Glucose 171 mg/dL; Hemoglobin A1c % 7.6 %
[2021-06-03 09:33] LABS: Alanine Aminotransferase 11 U/L (0-40); Albumin Level 3.6 g/dL (3.5-5.0); Alkaline Phosphatase 92 U/L (39-117); Anion Gap 13 (12-20); Aspartate Amino Transferase 13 U/L (5-37); Bilirubin Total < 0.2 mg/dL (0.0-1.0); Blood Urea Nitrogen 18 mg/dL (9-16); Calcium 9.3 mg/dL (8.4-10.2); Carbon Dioxide 28 mmol/L (22-29); Chloride 105 mmol/L (96-108); Estimated Glomerular Filt Rate 57; Glucose Random 183 mg/dL (60-115); Potassium 3.9 mmol/L (3.3-5.1); Sodium 142 mmol/L (135-145); Total Protein 7.3 g/dL (6.5-8.0)
[2021-06-03 09:42] LABS: Phenytoin Dilantin 15.6 ug/mL (10.0-20.0)
== END 2021-06-03 07:57 | disposition home or self-care (01) ==
LOC: HO.LAB 07:56
PROVIDERS: Absent Provider Internal Medicine; PCP Internal Medicine; Visit Provider Internal Medicine
DX: E11.22 Type 2 diabetes mellitus with diabetic chronic kidney disease (principal); N18.9 Chronic kidney disease, unspecified; E11.40 Type 2 diabetes mellitus with diabetic neuropathy, unspecified; E78.00 Pure hypercholesterolemia, unspecified; G40.509 Epileptic seizures related to external causes, not intractable, without status epilepticus
CPT/HCPCS: 36415; 80053; 80185; 83036

== ENCOUNTER 2021-06-27 07:00 | Emergency (ER) | payer MEDICARE, MEDICAID, SELFPAY ==
--- NOTE | 2021-06-27 | ECG_ITS ---
Test Reason : PALPITATIONS Blood Pressure : / mmHG Vent. Rate : 066 BPM Atrial Rate : 066 BPM P-R Int : 000 ms QRS Dur : 090 ms QT Int : 430 ms P-R-T Axes : 000 024 039 degrees QTc Int : 450 ms Normal sinus rhythm Normal ECG When compared with ECG of 18-MAY-2021 06:12, Vent. rate has decreased BY 40 BPM QT has shortened Referred By: Generic ED Physician Electronically Signed By:JAZMIN URBANO
[2021-06-27 07:10] VITALS: BP 171/65; PULSE 70; RESP 16; TEMP 37.1; O2SAT 100; BMI 36.4
[2021-06-27 07:39] LABS: MANUAL DIFF FLAG NO
[2021-06-27 07:41] LABS: Basophils Absolute Auto 0.1 X10*3/uL (0.0-0.2); Eosinophils Absolute Auto 0.3 X10*3/uL (0.0-0.4); Hematocrit 32.5 % (42-52); Hemoglobin 10.4 g/dl (14.0-18.0); Imm Gran Abs Auto 0.02 X10*3/uL (0.00-0.03); Imm Gran Pct Auto 0.3 % (0.0-0.4); Lymphocytes Absolute Auto 1.6 X10*3/uL (1.2-4.9); Lymphocytes Percent Auto 23.5 % (20-40); Mean Corpuscular Hemoglobin 26.4 pg (27.0-33.0); Mean Corpuscular Volume 82.5 fL (80-98); Mean Platelet Volume 10.2 fL (9.4-12.4); Monocytes Absolute Auto 0.7 X10*3/uL (0.1-1.2); Monocytes Percent Auto 10.2 % (2-11); Neutrophils Absolute Auto 4.1 X10*3/uL (2.0-8.3); Platelet Count 212 X10*3/uL (160-400); Red Blood Count 3.94 X10*6/uL (4.60-5.80); Red Cell Distribution Width 18.1 % (11.0-16.0); White Blood Count 6.8 X10*3/uL (4.8-10.8)
--- NOTE | 2021-06-27 08:15 | ED.ARRPALP ---
HPI - Arrhythmia/Palpitations General Chief Complaint: Arrhythmia/Palpitations Stated Complaint: heart palpitations Time Seen by Provider: 06/27/21 08:09 Source: patient Mode of arrival: ambulatory Limitations: no limitations History of Present Illness HPI narrative: This is a 81 years old patient with a history of coronary artery disease status post LAD stent, history of CHF a history of diabetes history of epilepsy presented to the ED complaining of palpitation over about 2 days. Describes the palpitations as a skips beats. Denies any chest pain, chest pressure, syncope or near syncopal episode MD complaint: skipped beats Onset (ago): day(s) (2) Duration: constant Severity: mild Context: occurred during rest Related Data Home Medications Medication Instructions Recorded Confirmed aspirin 81 mg tablet,delayed 81 mg PO DAILY 08/12/20 05/18/21 release (Adult Low Dose Aspirin) pantoprazole 40 mg tablet,delayed 40 mg PO DAILY 08/12/20 05/18/21 release rosuvastatin 40 mg tablet 40 mg PO DAILY 08/12/20 05/18/21 blood sugar diagnostic #10 ea 09/15/20 05/05/21 metoprolol succinate 100 mg 100 mg PO DAILY 09/15/20 05/18/21 tablet,extended release 24 hr pen needle, diabetic 32 gauge x #50 ea 09/15/20 05/05/21 pregabalin 75 mg capsule 75 mg PO BID cap 03/15/21 05/18/21 Previous Rx's Medication Instructions Recorded tamsulosin 0.4 mg capsule 0.4 mg PO DAILY 90 Days #90 cap 10/01/20 furosemide 80 mg tablet 80 mg PO BID #180 tab 12/29/20 nitroglycerin 0.4 mg sublingual 0.4 mg SUBLINGUAL .COMPLEX #75 tab 02/19/21 tablet isosorbide mononitrate 30 mg 30 mg PO DAILY 30 Days #30 tab 04/27/21 tablet,extended release 24 hr BD Nicole 2nd Gen Pen Needle 32 #100 ea NS 05/05/21 gauge x 5 (pen needle, diabetic) phenytoin sodium extended 100 mg 200 mg PO BEDTIME #30 cap 05/19/21 capsule (Dilantin Extended) phenytoin sodium extended 100 mg 300 mg PO DAILY #30 cap 05/19/21 capsule (Dilantin Extended) insulin aspart U-100 100 unit/mL 1 sliding scale dose SUBCUT 05/20/21 subcutaneous solution (Novolog QIDACHS #10 ml MDD 40 units U-100 Insulin aspart) insulin glargine 100 unit/mL (3 14 unit SUBCUT DAILY #15 ml 05/25/21 mL) subcutaneous pen (Basaglar KwikPen U-100 Insulin) Allergies Allergy/AdvReac Type Severity Reaction Status Date / Time codeine [CODEINE] Allergy Unknown UNKNOWN Verified 06/27/21 07:03 lisinopril Allergy Unknown unknown Uncoded 04/29/21 04:12 Review of Systems Review of Systems: Yes all other systems are reviewed and are negative Constitutional: Constitutional: Reports no additional constitutional complaints Cardiovascular: Cardiovascular: Denies chest pain Respiratory: Respiratory: Reports no additional respiratory complaints Gastrointestinal: Gastrointestinal: Denies abdominal pain and Denies diarrhea Musculoskeletal: Musculoskeletal: Reports no additional musculoskeletal complaints Neurologic: Reports system reviewed and no additional complaints, except as documented PMFSH Past Medical History Medical History (HFpEF) heart failure with preserved ejection fraction BPH (benign prostatic hyperplasia) CAD (coronary artery disease) CHF (congestive heart failure) CHF (congestive heart failure) CKD (chronic kidney disease) Coronary stent patent Diabetes mellitus, type 2 Diabetic nephropathy associated with type 2 diabetes mellitus Diabetic neuropathy associated with type 2 diabetes mellitus Dyslipidemia Epilepsy Hypertension Hypokalemia Neuropathy associated with endocrine disorder Secondary hyperparathyroidism Type 2 diabetes mellitus with hyperglycemia, with long-term current use of insulin Surgical History Hx of cardiac cath Stented coronary artery Family History Family History Father Diabetes CVD (cardiovascular disease) Mother Diabetes Brother Diabetes Son Thyroid disease Lung disease Psoriasis HTN (hypertension) Social History Social History Household Members: Spouse and Family Housing: Apartment Do you presently have visiting nurse or other home services: No Alcohol intake: unknown Patient Tobacco Use Status: Never used Tobacco Use of substances other than those prescribed or required for medical reasons: No Advance Directives: Yes Advance Directives on File: Yes Advance Directives Date on File: 05/18/21 service: No Current occupational status: retired Physical Exam Vital Signs: Vital Signs: Last Vital Signs Temp 98.7 F 06/27/21 07:10 Pulse 56 06/27/21 10:05 Resp 14 06/27/21 10:05 BP 149/71 H 06/27/21 10:05 Pulse Ox 100 06/27/21 10:05 Body Mass Index 36.4 Const: General: cooperative, comfortable, no acute distress, well developed, alert and awake Orientation/consciousness: patient oriented x3 HENMT: Other: wnl Mouth: Normal oral and palatal mucosa present Neck: Neck: Yes normal visual inspection and Yes full ROM Chest: Chest palpation & inspection: normal inspection of the chest Resp: Effort & Inspection: normal respiratory effort Auscultation: clear to auscultation bilaterally Cardio: Jugular venous distension: no JVD Rate: regular rate Rhythm: regular rhythm GI: Inspection: Yes normal to inspection Palpation (GI): Soft to palpation, not firm, nontender and no guarding Neuro: General: patient oriented x3 Extrem: General: Yes normal to inspection, Yes full ROM and Yes capillary refill normal Course Reevaluation(s) Reevaluation #1: PATIENT REMAINED ASYMPTOMATIC, DELTA TROPONIN IS NEGATIVE, WE WILL DISCHARGE THE PATIENT HOME. INCIDENTAL FINDING A HIS DILANTIN LEVEL IS ELEVATED HE WAS TOLD TO TAKE ORALLY 100 MG AT NIGHT HE WILL CALL HIS PRIMARY CARE PHYSICIAN TOMORROW FOR FURTHER INSTRUCTION FOR THE DILANTIN MDM - Arrhythmia/Palpitations Lab Data Result diagrams: 06/27/21 07:31 06/27/21 07:31 Labs: Lab Results 06/27/21 06/27/21 06/27/21 Range/Units 07:31 07:31 07:31 WBC 6.8 (4.8-10.8) X10*3/uL RBC 3.94 L (4.60-5.80) X10*6/uL Hgb 10.4 L (14.0-18.0) g/dl Hct 32.5 L (42-52) % MCV 82.5 (80-98) fL MCH 26.4 L (27.0-33.0) pg MCHC 32.0 (31.0-36.0) g/dl RDW 18.1 H (11.0-16.0) % Plt Count 212 (160-400) X10*3/uL MPV 10.2 (9.4-12.4) fL Immature Gran % (Auto) 0.3 (0.0-0.4) % Neut % (Auto) 61.0 (45-73) % Lymph % (Auto) 23.5 (20-40) % Redwood % (Auto) 10.2 (2-11) % Eos % (Auto) 4.0 (0-4) % Baso % (Auto) 1.0 (0-2) % Lymph # (Auto) 1.6 (1.2-4.9) X10*3/uL Redwood # (Auto) 0.7 (0.1-1.2) X10*3/uL Eos # (Auto) 0.3 (0.0-0.4) X10*3/uL Baso # (Auto) 0.1 (0.0-0.2) X10*3/uL Abs Immat Gran (auto) 0.02 (0.00-0.03) X10*3/uL Absolute Neuts (auto) 4.1 (2.0-8.3) X10*3/uL Absolute Nucleated RBC 0.000 (0.0-0.012) X10*3/uL Nucleated RBC % (auto) 0.0 (0.0-0.2) /100WBC Sodium 139 (135-145) mmol/L Potassium 3.9 (3.3-5.1) mmol/L Chloride 105 (96-108) mmol/L Carbon Dioxide 24 (22-29) mmol/L Anion Gap 14 (12-20) BUN 22 H (9-16) mg/dL Creatinine 1.08 (0.5-1.4) mg/dL Estim Creat Clear Calc 59.1 Estimated GFR > 60 Random Glucose 150 H (60-115) mg/dL Calcium 9.0 (8.4-10.2) mg/dL Troponin I High Sens 6.4 D (<3.5-35.0) ng/L B-Natriuretic Peptide 99 (<100) pg/mL Phenytoin (10.0-20.0) ug/mL 06/27/21 06/27/21 Range/Units 11:36 11:36 WBC (4.8-10.8) X10*3/uL RBC (4.60-5.80) X10*6/uL Hgb (14.0-18.0) g/dl Hct (42-52) % MCV (80-98) fL MCH (27.0-33.0) pg MCHC (31.0-36.0) g/dl RDW (11.0-16.0) % Plt Count (160-400) X10*3/uL MPV (9.4-12.4) fL Immature Gran % (Auto) (0.0-0.4) % Neut % (Auto) (45-73) % Lymph % (Auto) (20-40) % Redwood % (Auto) (2-11) % Eos % (Auto) (0-4) % Baso % (Auto) (0-2) % Lymph # (Auto) (1.2-4.9) X10*3/uL Redwood # (Auto) (0.1-1.2) X10*3/uL Eos # (Auto) (0.0-0.4) X10*3/uL Baso # (Auto) (0.0-0.2) X10*3/uL Abs Immat Gran (auto) (0.00-0.03) X10*3/uL Absolute Neuts (auto) (2.0-8.3) X10*3/uL Absolute Nucleated RBC (0.0-0.012) X10*3/uL Nucleated RBC % (auto) (0.0-0.2) /100WBC Sodium (135-145) mmol/L Potassium (3.3-5.1) mmol/L Chloride (96-108) mmol/L Carbon Dioxide (22-29) mmol/L Anion Gap (12-20) BUN (9-16) mg/dL Creatinine (0.5-1.4) mg/dL Estim Creat Clear Calc Estimated GFR Random Glucose (60-115) mg/dL Calcium (8.4-10.2) mg/dL Troponin I High Sens 6.0 (<3.5-35.0) ng/L B-Natriuretic Peptide (<100) pg/mL Phenytoin 20.5 H (10.0-20.0) ug/mL ECG Data Attestation: I personally reviewed and interpreted this ECG as follows: ECG interpretation date: 06/27/21 ECG interpretation time: 08:18 Pacemaker model: Normal sinus rhythm a rate [address]-T changes no ischemia Discharge Plan Discharge Clinical Impression: Heart palpitations Patient Disposition: Home, Self-Care Instructions: Heart Palpitations (ED) Additional Instructions: YOU DILANTIN LEVEL IS A LITTLE ELEVATED AND I WOULD RECOMMEND YOU TAKE ONLY 100 MG tONIGHT AND YOU CALL YOUR DOCTOR TOMORROW FOR FURTHER GUIDANCE FOR THE DILANTI Prescriptions: No Action tamsulosin 0.4 mg capsule 0.4 mg PO DAILY 90 Days Qty: 90 RF: 2 furosemide 80 mg tablet 80 mg PO BID Qty: 180 RF: 1 nitroglycerin 0.4 mg tablet, sublingual 0.4 mg sublingual .COMPLEX Qty: 75 RF: 3 isosorbide mononitrate 30 mg tablet extended release 24 hr 30 mg PO DAILY 30 Days Qty: 30 RF: 5 Basaglar KwikPen U-100 Insulin 100 unit/mL (3 mL) insulin pen 14 unit subcut DAILY Qty: 15 RF: 3 phenytoin sodium extended [Dilantin Extended] 100 mg Capsule 300 mg PO DAILY Qty: 30 RF: 0 phenytoin sodium extended [Dilantin Extended] 100 mg Capsule 200 mg PO BEDTIME Qty: 30 RF: 0 insulin aspart U-100 [Novolog U-100 Insulin aspart] 100 unit/mL solution 1 sliding scale dose subcut QIDACHS MDD 40 units Qty: 10 RF: 2 (DME) pen needle, diabetic [BD Nicole 2nd Gen Pen Needle] 32 gauge x 5/32 needle See Rx Instructions .MEDSUPPLY Qty: 100 RF: 6 (DME) blood sugar diagnostic Strip See Rx Instructions ea Not Applicable TID Qty: 10 RF: 0 metoprolol succinate 100 mg tablet extended release 24 hr 100 mg PO DAILY RF: 0 (DME) pen needle, diabetic 32 gauge x 5/32 needle See Rx Instructions ea subcut .MEDSUPPLY Qty: 50 RF: 0 aspirin [Adult Low Dose Aspirin] 81 mg tablet,delayed release (DR/EC) 81 mg PO DAILY RF: 0 rosuvastatin 40 mg tablet 40 mg PO DAILY RF: 0 pantoprazole 40 mg tablet,delayed release (DR/EC) 40 mg PO DAILY RF: 0 pregabalin 75 mg capsule 75 mg PO BID RF: 0 Interventions: ED Discharge Assessment Last Done: 06/27/21 13:06 Discharge Date/Time: 06/27/21 13:07
[2021-06-27 08:17] LABS: Anion Gap 14 (12-20); Blood Urea Nitrogen 22 mg/dL (9-16); Carbon Dioxide 24 mmol/L (22-29); Chloride 105 mmol/L (96-108); Creatinine Clr Calc Pharmacy 59.1; Estimated Glomerular Filt Rate > 60; Glucose Random 150 mg/dL (60-115); Potassium 3.9 mmol/L (3.3-5.1); Sodium 139 mmol/L (135-145)
[2021-06-27 08:33] LABS: B Type Natriuretic Peptide 99 pg/mL (<100); Troponin-I High Sensitivity 6.4 ng/L (<3.5-35.0)
[2021-06-27] MEDS: 0.9 % Sodium Chloride 1,000 ML 500 ML IVCONT (08:58)
[2021-06-27 10:05] VITALS: BP 149/71; PULSE 56; RESP 14; O2SAT 100
[2021-06-27 12:22] LABS: Phenytoin Dilantin 20.5 ug/mL (10.0-20.0)
== END 2021-06-27 13:07 | disposition home or self-care (01) ==
PROVIDERS: Emergency Provider Emergency Medicine; PCP Internal Medicine
DX: I49.9 Cardiac arrhythmia, unspecified (principal); R00.2 Palpitations; E11.9 Type 2 diabetes mellitus without complications; R06.02 Shortness of breath; I25.10 Atherosclerotic heart disease of native coronary artery without angina pectoris; Z79.82 Long term (current) use of aspirin; Z79.899 Other long term (current) drug therapy; Z79.4 Long term (current) use of insulin
CPT/HCPCS: 36415; 80048; 80185; 83880; 84484; 85025; 93005; 99284

== ENCOUNTER 2021-06-28 07:50 | Outpatient (REF) | payer MEDICARE, MEDICAID, SELFPAY ==
[2021-06-28 08:56] LABS: Anion Gap 14 (12-20); Blood Urea Nitrogen 22 mg/dL (9-16); Calcium 9.2 mg/dL (8.4-10.2); Carbon Dioxide 26 mmol/L (22-29); Chloride 105 mmol/L (96-108); Estimated Glomerular Filt Rate 56; Potassium 4.5 mmol/L (3.3-5.1); Sodium 140 mmol/L (135-145)
[2021-06-28 09:33] LABS: Creatinine Urine 82.02 mg/dL; Protein/Creatinine Ratio, Ur 0.13 (<0.2); Total Protein Urine Random 11 mg/dL (<12)
[2021-07-01 12:17] LABS: IgA 289 mg/dL (70-320); IgG 1448 mg/dL (600-1540); IgM 33 mg/dL (50-300)
== END 2021-06-28 07:51 | disposition home or self-care (01) ==
LOC: HO.LAB 07:50
PROVIDERS: PCP Internal Medicine; Visit Provider Internal Medicine Hypertension Specialist
DX: I12.9 Hypertensive chronic kidney disease with stage 1 through stage 4 chronic kidney disease, or unspecified chronic kidney disease (principal); N18.30 Chronic kidney disease, stage 3 unspecified; E11.22 Type 2 diabetes mellitus with diabetic chronic kidney disease; E11.21 Type 2 diabetes mellitus with diabetic nephropathy; R80.8 Other proteinuria
CPT/HCPCS: 80051; 82310; 82565; 82784; 84156; 84520; 86334; 86335

== ENCOUNTER 2021-07-02 02:45 | Emergency (ER) | payer MEDICARE, MEDICAID, SELFPAY ==
--- NOTE | ~2021-07-02 | XR_ITS ---
EXAMINATION: XR CHEST CLINICAL INFORMATION: Chest pain COMPARISON: Portable chest 05/18/2021 TECHNIQUE: Frontal portable view of the chest was obtained. 3:13 AM FINDINGS: No significant abnormality is noted involving the heart, lungs, mediastinum, bony thorax or soft tissues. XR/XR chest 1V IMPRESSION: Unremarkable examination.
[2021-07-02 03:02] VITALS: BP 172/71; PULSE 74; RESP 14; TEMP 36.3; O2SAT 97; BMI 35.3
--- NOTE | 2021-07-02 03:39 | ED_ITS ---
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 Patient woke up from sleep feeling scared and feeling palpitation and his heart is going fast call his daughter to bring him to the hospital. Patient declined any chest pain or shortness of breath. Patient claimed that the symptoms has resolved now. Patient was seen in the emergency department 5 days ago for similar presentation. Related Data Home Medications Medication Instructions Recorded Confirmed aspirin 81 mg tablet,delayed 81 mg PO DAILY 08/12/20 05/18/21 release (Adult Low Dose Aspirin) pantoprazole 40 mg tablet,delayed 40 mg PO DAILY 08/12/20 05/18/21 release rosuvastatin 40 mg tablet 40 mg PO DAILY 08/12/20 05/18/21 blood sugar diagnostic #10 ea 09/15/20 05/05/21 metoprolol succinate 100 mg 100 mg PO DAILY 09/15/20 05/18/21 tablet,extended release 24 hr pen needle, diabetic 32 gauge x #50 ea 09/15/20 05/05/21 pregabalin 75 mg capsule 75 mg PO BID cap 03/15/21 05/18/21 Previous Rx's Medication Instructions Recorded tamsulosin 0.4 mg capsule 0.4 mg PO DAILY 90 Days #90 cap 10/01/20 furosemide 80 mg tablet 80 mg PO BID #180 tab 12/29/20 nitroglycerin 0.4 mg sublingual 0.4 mg SUBLINGUAL .COMPLEX #75 tab 02/19/21 tablet isosorbide mononitrate 30 mg 30 mg PO DAILY 30 Days #30 tab 04/27/21 tablet,extended release 24 hr BD Nicole 2nd Gen Pen Needle 32 #100 ea NS 05/05/21 gauge x (pen needle, diabetic) phenytoin sodium extended 100 mg 200 mg PO BEDTIME #30 cap 05/19/21 capsule (Dilantin Extended) phenytoin sodium extended 100 mg 300 mg PO DAILY #30 cap 05/19/21 capsule (Dilantin Extended) insulin aspart U-100 100 unit/mL See Rx Instructions SUBCUT QIDACHS 06/28/21 subcutaneous solution (Novolog #10 ml MDD 32 units U-100 Insulin aspart) insulin glargine 100 unit/mL (3 22 unit SUBCUT DAILY #15 ml 06/28/21 mL) subcutaneous pen (Basaglar KwikPen U-100 Insulin) Allergies Allergy/AdvReac Type Severity Reaction Status Date / Time codeine [CODEINE] Allergy Unknown UNKNOWN Verified 06/27/21 07:03 lisinopril Allergy Unknown unknown Uncoded 04/29/21 04:12 Review of Systems Review of Systems: All other systems are reviewed and are negative Constitutional: Reports as per HPI and Reports no additional constitutional complaints Eyes: Reports as per HPI and Reports no additional eye complaints Reports system reviewed and no additional complaints, except as documented Cardiovascular: Reports as per HPI and Reports no additional cardiovascular complaints Respiratory: Reports as per HPI and Reports no additional respiratory complaints Gastrointestinal: Reports as per HPI and Reports no additional gastrointestinal complaints Genitourinary: Reports no additional female genitourinary complaints Musculoskeletal: Reports no additional musculoskeletal complaints Skin/Breast: Reports system reviewed and no additional complaints, except as docu Psychiatric: Reports no additional psychiatric complaints Endocrine: Reports no additional endocrine complaints Hematologic/Lymphatic: Reports no additional hematologic/lymphatic complaints Allergic/Immunologic: Reports no additional allergic/immunologic complaints Reports system reviewed and no additional complaints, except as documented and Reports Abnormal speech present [facility] Past Medical History Medical History (HFpEF) heart failure with preserved ejection fraction BPH (benign prostatic hyperplasia) CAD (coronary artery disease) CHF (congestive heart failure) CHF (congestive heart failure) CKD (chronic kidney disease) Coronary stent patent Diabetes mellitus, type 2 Diabetic nephropathy associated with type 2 diabetes mellitus Diabetic neuropathy associated with type 2 diabetes mellitus Dyslipidemia Epilepsy Hypertension Hypokalemia Neuropathy associated with endocrine disorder Secondary hyperparathyroidism Type 2 diabetes mellitus with hyperglycemia, with long-term current use of insulin Surgical History Hx of cardiac cath Stented coronary artery Family History Family History Father Diabetes CVD (cardiovascular disease) Mother Diabetes Brother Diabetes Son Thyroid disease Lung disease Psoriasis HTN (hypertension) Social History Social History Household Members: Spouse and Family Housing: Apartment Do you presently have visiting nurse or other home services: No Alcohol intake: unknown Patient Tobacco Use Status: Never used Tobacco Advance Directives: Yes Advance Directives on File: Yes Advance Directives Date on File: 05/18/21 service: No Current occupational status: retired Physical Exam Vital Signs: Vital Signs: Last Vital Signs Temp 97.3 F 07/02/21 03:02 Pulse 74 07/02/21 03:02 Resp 14 07/02/21 03:02 BP 172/71 H 07/02/21 03:02 Pulse Ox 97 07/02/21 03:02 Body Mass Index 35.3 Vital signs have been reviewed as appeared to be correct. Blood pressure normal. Heart rate normal. Respiration rate normal. Temperature normal. Oxy gen saturation normal. Appearance: Alert. Oriented X3. No acute distress. Appear anxious Head: Normal external exam. Normocephalic. Atraumatic. No [place] signs noted. No raccoon eyes noted Eyes: PERRLA. EOMI. Conjunctiva and sclera normal. Eyelids normal. ENT: TM's Normal. Pharynx normal. Uvula midline. Moist mucous membranes. No trismus noted. No drooling noted. No muffled voice noted. Neck: Normal inspection. Neck supple. FROM. No adenopathy. Thyroid Normal. No meningeal signs. No neck mass noted. CVS: Normal heart rate and rhythm. Heart sound normal. No murmurs noted. Pulses normal throughout. Respiratory: No respiratory distress. Painless inspiration. Breath sounds normal. No wheezes/rales/rhonchi noted. Chest nontender. No accessory muscle usage noted or decreased air movement noted. Abdomen: Soft and nontender. Bowel sounds normal in all 4 quadrants. No distention noted. No organomegaly noted. No visible injury noted. Back: No CVA tenderness. Full range of motion noted. Skin: Skin warm and dry. Normal skin color. Normal skin turgor. No rashes/lesions/lacerations noted. Extremities: No lower extremity edema. Extremities exhibit normal range of motion. Extremities nontender. Neuro: Oriented X 3. Cranial nerve exam: II-XII are grossly intact No motor deficit. No sensory deficit. Reflexes normal. Course Course Course Narrative: Assessment and plan. 81 years old male 2nd visit to the emergency room for palpitation, as per lisa ocasio patient sleep at night with CPAP due to sleep apnea and that is what makes him anxious during the night and wanted to come to the hospital. Patient now is relaxed, no palpitation, no chest pain, no shortness of breath. Patient has stable vital signs, EKG, labs are unremarkable will discharge the patient to follow-up with PCP. MDM - Arrhythmia/Palpitations Lab Data Attestation: I reviewed the patient's lab results. Result diagrams: 07/02/21 03:45 07/02/21 03:45 Labs: Lab Results 07/02/21 07/02/21 07/02/21 Range/Units 03:45 03:45 03:45 WBC 7.2 (4.8-10.8) X10*3/uL RBC 4.00 L (4.60-5.80) X10*6/uL Hgb 10.6 L (14.0-18.0) g/dl Hct 32.7 L (42-52) % MCV 81.8 (80-98) fL MCH 26.5 L (27.0-33.0) pg MCHC 32.4 (31.0-36.0) g/dl RDW 18.0 H (11.0-16.0) % Plt Count 224 (160-400) X10*3/uL MPV 10.1 (9.4-12.4) fL Immature Gran % (Auto) 0.3 (0.0-0.4) % Neut % (Auto) 69.8 (45-73) % Lymph % (Auto) 15.8 L (20-40) % [place] % (Auto) 9.8 (2-11) % Eos % (Auto) 3.6 (0-4) % Baso % (Auto) 0.7 (0-2) % Lymph # (Auto) 1.1 L (1.2-4.9) X10*3/uL [place] # (Auto) 0.7 (0.1-1.2) X10*3/uL Eos # (Auto) 0.3 (0.0-0.4) X10*3/uL Baso # (Auto) 0.1 (0.0-0.2) X10*3/uL Abs Immat Gran (auto) 0.02 (0.00-0.03) X10*3/uL Absolute Neuts (auto) 5.1 (2.0-8.3) X10*3/uL Absolute Nucleated RBC 0.000 (0.0-0.012) X10*3/uL Nucleated RBC % (auto) 0.0 (0.0-0.2) /100WBC Sodium 139 (135-145) mmol/L Potassium 3.7 (3.3-5.1) mmol/L Chloride 104 (96-108) mmol/L Carbon Dioxide 25 (22-29) mmol/L Anion Gap 14 (12-20) BUN 27 H (9-16) mg/dL Creatinine 1.18 (0.5-1.4) mg/dL Estim Creat Clear Calc 55.0 Estimated GFR 59 Random Glucose 179 H (60-115) mg/dL Calcium 8.9 (8.4-10.2) mg/dL Troponin I High Sens 6.1 (<3.5-35.0) ng/L B-Natriuretic Peptide 64 (<100) pg/mL Lipase 23 (8-78) U/L Imaging Data Chest x-ray: Radiologist's impression: Unremarkable examination. Discharge Plan Discharge Clinical Impression: Palpitation, Anxiety Patient Disposition: Home, Self-Care Instructions: Heart Palpitations (ED) Prescriptions: No Action tamsulosin 0.4 mg capsule 0.4 mg PO DAILY 90 Days Qty: 90 RF: 2 furosemide 80 mg tablet 80 mg PO BID Qty: 180 RF: 1 nitroglycerin 0.4 mg tablet, sublingual 0.4 mg sublingual .COMPLEX Qty: 75 RF: 3 isosorbide mononitrate 30 mg tablet extended release 24 hr 30 mg PO DAILY 30 Days Qty: 30 RF: 5 Basaglar KwikPen U-100 Insulin 100 unit/mL (3 mL) insulin pen 22 unit subcut DAILY Qty: 15 RF: 3 insulin aspart U-100 [Novolog U-100 Insulin aspart] 100 unit/mL solution See Rx Instructions subcut QIDACHS MDD 32 units Qty: 10 RF: 2 phenytoin sodium extended [Dilantin Extended] 100 mg Capsule 300 mg PO DAILY Qty: 30 RF: 0 phenytoin sodium extended [Dilantin Extended] 100 mg Capsule 200 mg PO BEDTIME Qty: 30 RF: 0 (DME) pen needle, diabetic [BD Nicole 2nd Gen Pen Needle] 32 gauge x 5/32 ne edle See Rx Instructions .MEDSUPPLY Qty: 100 RF: 6 (DME) blood sugar diagnostic Strip See Rx Instructions ea Not Applicable TID Qty: 10 RF: 0 metoprolol succinate 100 mg tablet extended release 24 hr 100 mg PO DAILY RF: 0 (DME) pen needle, diabetic 32 gauge x 5/32 needle See Rx Instructions ea subcut .MEDSUPPLY Qty: 50 RF: 0 aspirin [Adult Low Dose Aspirin] 81 mg tablet,delayed release (DR/EC) 81 mg PO DAILY RF: 0 rosuvastatin 40 mg tablet 40 mg PO DAILY RF: 0 pantoprazole 40 mg tablet,delayed release (DR/EC) 40 mg PO DAILY RF: 0 pregabalin 75 mg capsule 75 mg PO BID RF: 0 Referrals: Physician,Unknown [Primary Care Provider] - 2 days
[2021-07-02 03:49] LABS: MANUAL DIFF FLAG NO
[2021-07-02 03:52] LABS: Basophils Absolute Auto 0.1 X10*3/uL (0.0-0.2); Basophils Percent Auto 0.7 % (0-2); Eosinophils Absolute Auto 0.3 X10*3/uL (0.0-0.4); Eosinophils Percent Auto 3.6 % (0-4); Hematocrit 32.7 % (42-52); Hemoglobin 10.6 g/dl (14.0-18.0); Imm Gran Abs Auto 0.02 X10*3/uL (0.00-0.03); Imm Gran Pct Auto 0.3 % (0.0-0.4); Lymphocytes Absolute Auto 1.1 X10*3/uL (1.2-4.9); Lymphocytes Percent Auto 15.8 % (20-40); Mean Corpuscular HGB Conc 32.4 g/dl (31.0-36.0); Mean Corpuscular Hemoglobin 26.5 pg (27.0-33.0); Mean Corpuscular Volume 81.8 fL (80-98); Mean Platelet Volume 10.1 fL (9.4-12.4); Monocytes Absolute Auto 0.7 X10*3/uL (0.1-1.2); Monocytes Percent Auto 9.8 % (2-11); Neutrophils Absolute Auto 5.1 X10*3/uL (2.0-8.3); Neutrophils Percent Auto 69.8 % (45-73); Platelet Count 224 X10*3/uL (160-400); White Blood Count 7.2 X10*3/uL (4.8-10.8)
[2021-07-02 04:09] LABS: Anion Gap 14 (12-20); Blood Urea Nitrogen 27 mg/dL (9-16); Calcium 8.9 mg/dL (8.4-10.2); Carbon Dioxide 25 mmol/L (22-29); Chloride 104 mmol/L (96-108); Estimated Glomerular Filt Rate 59; Glucose Random 179 mg/dL (60-115); Lipase 23 U/L (8-78); Potassium 3.7 mmol/L (3.3-5.1); Sodium 139 mmol/L (135-145)
[2021-07-02 04:15] LABS: B Type Natriuretic Peptide 64 pg/mL (<100); Troponin-I High Sensitivity 6.1 ng/L (<3.5-35.0)
--- NOTE | 2021-07-02 07:54 | ECG_ITS ---
Test Reason : CHEST PAIN Blood Pressure : / mmHG Vent. Rate : 072 BPM Atrial Rate : 068 BPM P-R Int : 000 ms QRS Dur : 092 ms QT Int : 422 ms P-R-T Axes : 000 020 043 degrees QTc Int : 462 ms Normal sinus rhythm Nonspecific T wave abnormality Abnormal ECG When compared with ECG of 27-JUN-2021 07:19, Nonspecific T wave abnormality is now Present Referred By: Nitesh Blankenship Electronically Signed By:JAZMIN URBANO
== END 2021-07-02 06:19 | disposition home or self-care (01) ==
PROVIDERS: Emergency Provider Emergency Medicine
DX: R00.2 Palpitations (principal); F41.9 Anxiety disorder, unspecified; I13.0 Hypertensive heart and chronic kidney disease with heart failure and stage 1 through stage 4 chronic kidney disease, or unspecified chronic kidney disease; E11.22 Type 2 diabetes mellitus with diabetic chronic kidney disease; N18.9 Chronic kidney disease, unspecified; I50.9 Heart failure, unspecified; E78.5 Hyperlipidemia, unspecified; Z79.82 Long term (current) use of aspirin; Z79.02 Long term (current) use of antithrombotics/antiplatelets; Z79.899 Other long term (current) drug therapy; Z79.4 Long term (current) use of insulin
CPT/HCPCS: 36415; 71045; 80048; 83690; 83880; 84484; 85025; 93005; 99284

== ENCOUNTER 2021-07-12 08:29 | Outpatient (REF) | payer MEDICARE, MEDICAID, SELFPAY ==
[2021-07-12 12:53] LABS: Phenytoin Dilantin 12.3 ug/mL (10.0-20.0)
== END 2021-07-12 08:30 | disposition home or self-care (01) ==
LOC: HO.LAB 08:29
PROVIDERS: Absent Provider Psychiatry & Neurology Neurology; PCP Internal Medicine; Visit Provider Nurse Practitioner Gerontology
DX: E11.22 Type 2 diabetes mellitus with diabetic chronic kidney disease (principal); E11.40 Type 2 diabetes mellitus with diabetic neuropathy, unspecified; E11.65 Type 2 diabetes mellitus with hyperglycemia; E11.21 Type 2 diabetes mellitus with diabetic nephropathy; N18.9 Chronic kidney disease, unspecified; I13.0 Hypertensive heart and chronic kidney disease with heart failure and stage 1 through stage 4 chronic kidney disease, or unspecified chronic kidney disease; I25.10 Atherosclerotic heart disease of native coronary artery without angina pectoris; I50.9 Heart failure, unspecified; E66.09 Other obesity due to excess calories; E78.5 Hyperlipidemia, unspecified; G40.909 Epilepsy, unspecified, not intractable, without status epilepticus; Z79.899 Other long term (current) drug therapy; Z79.4 Long term (current) use of insulin; Z87.891 Personal history of nicotine dependence
CPT/HCPCS: 36415; 80185; 82947; 99212

== ENCOUNTER → 2021-09-20 13:24 | Outpatient (BNVA) | payer MEDICARE, MEDICAID, SELFPAY | PROVIDERS: PCP Internal Medicine; Visit Provider Internal Medicine | DX: I11.0 Hypertensive heart disease with heart failure (principal); I50.32 Chronic diastolic (congestive) heart failure; I25.10 Atherosclerotic heart disease of native coronary artery without angina pectoris; I44.0 Atrioventricular block, first degree; E11.8 Type 2 diabetes mellitus with unspecified complications; G47.33 Obstructive sleep apnea (adult) (pediatric) | CPT/HCPCS: 99212 ==

== ENCOUNTER 2021-10-04 08:21 | Outpatient (REF) | payer MEDICARE, MEDICAID, SELFPAY ==
[2021-10-04 08:39] LABS: MANUAL DIFF FLAG NO
[2021-10-04 09:01] LABS: Basophils Absolute Auto 0.1 X10*3/uL (0.0-0.2); Basophils Percent Auto 1.4 % (0-2); Eosinophils Absolute Auto 0.3 X10*3/uL (0.0-0.4); Eosinophils Percent Auto 4.8 % (0-4); Hematocrit 34.3 % (42.0-52.0); Hemoglobin 10.9 g/dl (14.0-18.0); Imm Gran Abs Auto 0.01 X10*3/uL (0.00-0.03); Imm Gran Pct Auto 0.2 % (0.0-0.4); Lymphocytes Absolute Auto 1.3 X10*3/uL (1.2-4.9); Lymphocytes Percent Auto 23.9 % (20-40); Mean Corpuscular HGB Conc 31.8 g/dl (31.0-36.0); Mean Corpuscular Hemoglobin 27.3 pg (27.0-33.0); Mean Platelet Volume 10.2 fL (9.4-12.4); Monocytes Absolute Auto 0.5 X10*3/uL (0.1-1.2); Monocytes Percent Auto 9.7 % (2-11); Neutrophils Absolute Auto 3.3 x10*3/uL (2.0-8.3); Platelet Count 235 X10*3/uL (160-400); Red Blood Count 3.99 X10*6/uL (4.60-5.80); Red Cell Distribution Width 15.7 % (11.0-16.0); White Blood Count 5.6 X10*3/uL (4.8-10.8)
[2021-10-04 09:25] LABS: Alanine Aminotransferase 10 U/L (0-40); Albumin Level 3.7 g/dL (3.5-5.0); Alkaline Phosphatase 97 U/L (39-117); Anion Gap 13 (12-20); Aspartate Amino Transferase 12 U/L (5-37); Bilirubin Total 0.3 mg/dL (0.0-1.0); Blood Urea Nitrogen 24 mg/dL (9-16); Calcium 9.5 mg/dL (8.4-10.2); Carbon Dioxide 27 mmol/L (22-29); Chloride 107 mmol/L (96-108); Cholesterol 187 mg/dL; Estimated Average Glucose 209 mg/dL; Estimated Glomerular Filt Rate 56; Glucose Fasting 186 mg/dL (60-99); HDL Cholesterol 47 mg/dL; Hemoglobin A1c % 8.9 %; LDL Cholesterol Calculated 114 mg/dl; Potassium 3.9 mmol/L (3.3-5.1); Sodium 143 mmol/L (135-145); Total Protein 7.3 g/dL (6.5-8.0); Triglycerides 130 mg/dL
[2021-10-04 09:45] LABS: Thyroid Stimulating Hormone 1.68 uIU/mL (0.32-4.0)
[2021-10-04 10:27] LABS: Creatinine Urine 63.17 mg/dL; Microalbum/Creatinine Ratio Ur 102.8 ug/mg cr
[2021-10-04 10:31] LABS: Phenytoin Dilantin 7.5 ug/mL (10.0-20.0)
[2021-10-06 07:06] LABS: LDL Cholesterol Direct 108 mg/dL (<100)
== END 2021-10-04 08:22 | disposition home or self-care (01) ==
LOC: HO.LAB 08:21
PROVIDERS: Nurse Practitioner Gerontology; PCP Internal Medicine; Visit Provider Internal Medicine
DX: E11.65 Type 2 diabetes mellitus with hyperglycemia (principal); E11.21 Type 2 diabetes mellitus with diabetic nephropathy; G40.509 Epileptic seizures related to external causes, not intractable, without status epilepticus; I11.0 Hypertensive heart disease with heart failure; I50.43 Acute on chronic combined systolic (congestive) and diastolic (congestive) heart failure; Z79.899 Other long term (current) drug therapy
CPT/HCPCS: 36415; 80053; 80061; 80185; 82043; 83036; 83721; 84443; 85025

== ENCOUNTER 2021-10-06 17:33 | Emergency (ER) | payer MEDICARE, MEDICAID, SELFPAY ==
--- NOTE | ~2021-10-06 | XR_ITS ---
EXAMINATION: XR LUMBOSACRAL SPINE CLINICAL INFORMATION: Lower back pain COMPARISON: 04/10/2020 TECHNIQUE: Three views of the lumbosacral spine. FINDINGS: There is no fracture or subluxation. Vertebral body height and alignment maintained. Disc space narrowing of L4-L5 and L5-S1. Vacuum disc phenomenon. Multilevel endplate osteophytes with facet arthropathy. The sacroiliac joints are symmetric. The sacrum is intact. Normal bowel gas pattern. XR/XR lumbar spine 2-3V IMPRESSION: Moderate degenerative changes throughout the lumbar spine.
[2021-10-06 18:07] VITALS: BP 170/63; PULSE 65; RESP 18; TEMP 36.7; O2SAT 97; BMI 33.5
--- NOTE | 2021-10-06 18:48 | PC.NURSE ---
per emc RN request, pt was changed to a 3 to be seen on the main side
--- NOTE | 2021-10-06 20:14 | ED.BACK ---
HPI - Back Pain/Injury General Chief Complaint: Back Pain/Injury Stated Complaint: BACK PAIN Time Seen by Provider: 10/06/21 20:14 Source: patient and family Mode of arrival: ambulatory Limitations: language barrier History of Present Illness HPI Narrative: Patient with history of chronic back problems complaining of increased pain for last few days in lower lumbar area it into the left leg no known injury nausea no vomiting abdominal pain no fever no chills no urinary complaints patient taking Tylenol for pain Related Data Home Medications Medication Instructions Recorded Confirmed aspirin 81 mg tablet,delayed 81 mg PO DAILY 08/12/20 09/20/21 release (Adult Low Dose Aspirin) pantoprazole 40 mg tablet,delayed 40 mg PO DAILY 08/12/20 09/20/21 release rosuvastatin 40 mg tablet 40 mg PO DAILY 08/12/20 09/20/21 blood sugar diagnostic #10 ea 09/15/20 09/20/21 metoprolol succinate 100 mg 100 mg PO DAILY 09/15/20 09/20/21 tablet,extended release 24 hr pen needle, diabetic 32 gauge x #50 ea 09/15/20 09/20/21 Previous Rx's Medication Instructions Recorded tamsulosin 0.4 mg capsule 0.4 mg PO DAILY 90 Days #90 cap 10/01/20 furosemide 80 mg tablet 80 mg PO BID #180 tab 12/29/20 nitroglycerin 0.4 mg sublingual 0.4 mg SUBLINGUAL .COMPLEX #75 tab 02/19/21 tablet isosorbide mononitrate 30 mg 30 mg PO DAILY 30 Days #30 tab 04/27/21 tablet,extended release 24 hr BD Nicole 2nd Gen Pen Needle 32 #100 ea NS 05/05/21 gauge x 5/32 (pen needle, diabetic) phenytoin sodium extended 100 mg 200 mg PO BEDTIME #30 cap 05/19/21 capsule (Dilantin Extended) phenytoin sodium extended 100 mg 300 mg PO DAILY #30 cap 05/19/21 capsule (Dilantin Extended) insulin aspart U-100 100 unit/mL See Rx Instructions SUBCUT TID #15 07/12/21 (3 mL) subcutaneous pen (Novolog ml Flexpen U-100 Insulin aspart) insulin glargine 100 unit/mL (3 22 unit (0.22 mL) SUBCUT DAILY #15 08/06/21 mL) subcutaneous pen (Basaglar ml KwikPen U-100 Insulin) pregabalin 75 mg capsule 75 mg PO BID #30 cap 08/30/21 cyclobenzaprine 10 mg tablet 10 mg PO Q8H #20 tab 10/06/21 tramadol 50 mg tablet 50 mg PO Q6H PRN #20 tab 10/06/21 Allergies Allergy/AdvReac Type Severity Reaction Status Date / Time codeine [CODEINE] Allergy Unknown UNKNOWN Verified 10/06/21 18:07 lisinopril Allergy Unknown unknown Uncoded 09/20/21 13:36 Review of Systems Review of Systems: Yes all other systems are reviewed and are negative [facility] Past Medical History Medical History (HFpEF) heart failure with preserved ejection fraction BPH (benign prostatic hyperplasia) CAD (coronary artery disease) CHF (congestive heart failure) CHF (congestive heart failure) CKD (chronic kidney disease) Coronary stent patent Diabetes mellitus, type 2 Diabetic nephropathy associated with type 2 diabetes mellitus Diabetic neuropathy associated with type 2 diabetes mellitus Dyslipidemia Epilepsy Hypertension Hypokalemia Neuropathy associated with endocrine disorder Obesity due to excess calories Secondary hyperparathyroidism Type 2 diabetes mellitus with hyperglycemia, with long-term current use of insulin Surgical History Hx of cardiac cath Stented coronary artery Family History Family History Father Diabetes CVD (cardiovascular disease) Mother Diabetes Brother Diabetes Son Thyroid disease Lung disease Psoriasis HTN (hypertension) Social History Social History Household Members: Spouse and Family Housing: Apartment Do you presently have visiting nurse or other home services: No Alcohol intake: former Patient Tobacco Use Status: Former Tobacco user Advance Directives: No Advance Directives Information Provided: No Advance Directives Date on File: 05/18/21 service: No Current occupational status: retired Physical Exam Vital Signs: Vital Signs: Last Vital Signs Temp 98.3 F 10/06/21 21:22 Pulse 66 10/06/21 21:22 Resp 18 10/06/21 21:22 BP 173/75 H 10/06/21 21:22 Pulse Ox 98 10/06/21 21:22 BMI result Body Mass Index 33.5 Appearance: Alert. Oriented X3. No acute distress. ENT: Pharynx normal. Oral Mucosa moist Neck: Normal inspection. Neck supple. CVS: Normal heart rate and rhythm. Pulses normal. Respiratory: No respiratory distress. Equal air entry bilateral, no wheezing/rales/rhonchi Abdomen: Soft and nontender. Bowel sounds are present, no mass palpable, no CVA tenderness Skin: Skin warm and dry. Normal skin color. Normal skin turgor. Back: Diffuse tenderness in lumbar spine area no focal spinal tenderness no step-off, sacral sensation intact SLR negative bilaterally Extremities: No lower extremity edema. No calf tenderness Neuro: Oriented X 3. No motor deficit. No sensory deficit. Patient ambulatory in steady gait MDM - Back Pain/Injury Lab Data Labs: Lab Results 10/06/21 Range/Units 20:26 Urine Color YELLOW Urine Appearance HAZY Urine pH 6.0 (5.0-8.0) Ur Specific [place] 1.010 (1.005-1.025) Urine Protein NEG (NEG-TRACE) MG/DL Urine Glucose (UA) NEG (NEG) MG/DL Urine Ketones NEG (NEG) MG/DL Urine Blood NEG (NEG) Urine Nitrite NEG (NEG) Ur Leukocyte Esterase NEG (NEG) Discharge Plan Discharge Clinical Impression: Acute lumbar myofascial strain Qualifiers: Encounter type: initial encounter Qualified Code(s): S39.012A - Strain of muscle, fascia and tendon of lower back, initial encounter Patient Disposition: Home, Self-Care Instructions: Back Pain (ED) Additional Instructions: Rest at home Take pain medication was relaxant as prescribed Follow with PCP as needed Descansar en casa [place] analg?sicos fue relajante seg?n lo prescrito. Siga con vargas PCP seg?n sea necesario Prescriptions: New cyclobenzaprine 10 mg tablet 10 mg PO Q8H Qty: 20 RF: 0 tramadol 50 mg tablet 50 mg PO Q6H PRN (Reason: pain) Qty: 20 RF: 0 No Action tamsulosin 0.4 mg capsule 0.4 mg PO DAILY 90 Days Qty: 90 RF: 2 furosemide 80 mg tablet 80 mg PO BID Qty: 180 RF: 1 nitroglycerin 0.4 mg tablet, sublingual 0.4 mg sublingual .COMPLEX Qty: 75 RF: 3 isosorbide mononitrate 30 mg tablet extended release 24 hr 30 mg PO DAILY 30 Days Qty: 30 RF: 5 Basaglar KwikPen U-100 Insulin 100 unit/mL (3 mL) insulin pen 22 unit subcut DAILY Qty: 15 RF: 4 pregabalin 75 mg capsule 75 mg PO BID Qty: 30 RF: 5 phenytoin sodium extended [Dilantin Extended] 100 mg Capsule 300 mg PO DAILY Qty: 30 RF: 0 phenytoin sodium extended [Dilantin Extended] 100 mg Capsule 200 mg PO BEDTIME Qty: 30 RF: 0 (DME) pen needle, diabetic [BD Nicole 2nd Gen Pen Needle] 32 gauge x 5/32 needle See Rx Instructions .MEDSUPPLY Qty: 100 RF: 6 (DME) blood sugar diagnostic Strip See Rx Instructions ea Not Applicable TID Qty: 10 RF: 0 metoprolol succinate 100 mg tablet extended release 24 hr 100 mg PO DAILY RF: 0 (DME) pen needle, diabetic 32 gauge x 5/32 needle See Rx Instructions ea subcut .MEDSUPPLY Qty: 50 RF: 0 aspirin [Adult Low Dose Aspirin] 81 mg tablet,delayed release (DR/EC) 81 mg PO DAILY RF: 0 rosuvastatin 40 mg tablet 40 mg PO DAILY RF: 0 pantoprazole 40 mg tablet,delayed release (DR/EC) 40 mg PO DAILY RF: 0 insulin aspart U-100 [Novolog Flexpen U-100 Insulin] 100 unit/mL (3 mL) insulin pen See Rx Instructions subcut TID Qty: 15 RF: 6 Interventions: ED Discharge Assessment Last Done: 10/06/21 21:40 Discharge Date/Time: 10/06/21 21:41 Print Language: Georgian
[2021-10-06 20:31] LABS: Appearance Urine HAZY; Color Urine YELLOW; Glucose Urine UA NEG (NEG); Leukocyte Esterase Urine NEG (NEG); Nitrite Urine NEG (NEG); Urine Blood NEG (NEG); Urine Ketones NEG (NEG); Urine Protein NEG (NEG-TRACE)
[2021-10-06] MEDS: traMADoL HCL 50 MG TABLET PO (21:12)
[2021-10-06 21:22] VITALS: BP 173/75; PULSE 66; RESP 18; TEMP 36.8; O2SAT 98
== END 2021-10-06 21:41 | disposition home or self-care (01) ==
PROVIDERS: Emergency Provider Internal Medicine; PCP Internal Medicine
DX: S39.012A Strain of muscle, fascia and tendon of lower back, initial encounter (principal); I13.0 Hypertensive heart and chronic kidney disease with heart failure and stage 1 through stage 4 chronic kidney disease, or unspecified chronic kidney disease; I50.30 Unspecified diastolic (congestive) heart failure; N18.9 Chronic kidney disease, unspecified; E11.22 Type 2 diabetes mellitus with diabetic chronic kidney disease; X58.XXXA Exposure to other specified factors, initial encounter; Y93.9 Activity, unspecified; Y92.9 Unspecified place or not applicable; Y99.9 Unspecified external cause status
CPT/HCPCS: 72100; 81003; 99283; 99284

== ENCOUNTER 2021-11-02 13:00 | Outpatient (REF) | payer MEDICARE, MEDICAID, SELFPAY ==
[2021-11-02 13:25] LABS: MANUAL DIFF FLAG NO
[2021-11-02 14:03] LABS: Basophils Absolute Auto 0.1 X10*3/uL (0.0-0.2); Basophils Percent Auto 0.9 % (0-2); Eosinophils Absolute Auto 0.2 X10*3/uL (0.0-0.4); Eosinophils Percent Auto 3.9 % (0-4); Hematocrit 35.2 % (42.0-52.0); Hemoglobin 11.1 g/dl (14.0-18.0); Imm Gran Abs Auto 0.02 X10*3/uL (0.00-0.03); Imm Gran Pct Auto 0.3 % (0.0-0.4); Lymphocytes Absolute Auto 1.4 X10*3/uL (1.2-4.9); Lymphocytes Percent Auto 23.3 % (20-40); Mean Corpuscular HGB Conc 31.5 g/dl (31.0-36.0); Mean Corpuscular Hemoglobin 27.7 pg (27.0-33.0); Mean Corpuscular Volume 87.8 fL (80.0-98.0); Mean Platelet Volume 10.7 fL (9.4-12.4); Monocytes Absolute Auto 0.6 X10*3/uL (0.1-1.2); Monocytes Percent Auto 10.3 % (2-11); Neutrophils Absolute Auto 3.6 x10*3/uL (2.0-8.3); Neutrophils Percent Auto 61.3 % (45-73); Platelet Count 229 X10*3/uL (160-400); Red Blood Count 4.01 X10*6/uL (4.60-5.80); Red Cell Distribution Width 15.3 % (11.0-16.0); White Blood Count 5.8 X10*3/uL (4.8-10.8)
[2021-11-02 14:35] LABS: Alanine Aminotransferase 14 U/L (0-40); Albumin Level 3.6 g/dL (3.5-5.0); Alkaline Phosphatase 109 U/L (39-117); Aspartate Amino Transferase 12 U/L (5-37); Bilirubin Direct < 0.2 mg/dL (0.0-0.5); Bilirubin Total < 0.2 mg/dL (0.0-1.0); Total Protein 7.2 g/dL (6.5-8.0)
== END 2021-11-02 13:01 | disposition home or self-care (01) ==
LOC: HO.LAB 13:00
PROVIDERS: PCP Internal Medicine; Visit Provider Internal Medicine Hypertension Specialist
DX: N18.31 Chronic kidney disease, stage 3a (principal)
CPT/HCPCS: 36415; 80076; 85025

== ENCOUNTER → 2021-11-15 13:04 | Outpatient (BNVA) | payer MEDICARE, MEDICAID, SELFPAY | PROVIDERS: PCP Internal Medicine; Visit Provider Nurse Practitioner Gerontology | DX: E11.65 Type 2 diabetes mellitus with hyperglycemia (principal); E11.40 Type 2 diabetes mellitus with diabetic neuropathy, unspecified; E11.21 Type 2 diabetes mellitus with diabetic nephropathy; E78.5 Hyperlipidemia, unspecified; I10 Essential (primary) hypertension; E66.01 Morbid (severe) obesity due to excess calories; Z68.35 Body mass index [BMI] 35.0-35.9, adult; Z79.4 Long term (current) use of insulin | CPT/HCPCS: 82947; 99212 ==

== ENCOUNTER → 2022-02-01 12:47 | Outpatient (BNVA) | payer MEDICARE, MEDICAID, SELFPAY | PROVIDERS: PCP Internal Medicine; Visit Provider Urology | DX: N40.1 Benign prostatic hyperplasia with lower urinary tract symptoms (principal); R35.1 Nocturia; E11.9 Type 2 diabetes mellitus without complications; Z79.4 Long term (current) use of insulin | CPT/HCPCS: 51798; 99212 ==

== ENCOUNTER → 2022-02-15 12:39 | Outpatient (BNVA) | payer MEDICARE, MEDICAID, SELFPAY | PROVIDERS: PCP Internal Medicine; Visit Provider Nurse Practitioner Gerontology | DX: E11.65 Type 2 diabetes mellitus with hyperglycemia (principal); E11.40 Type 2 diabetes mellitus with diabetic neuropathy, unspecified; E11.21 Type 2 diabetes mellitus with diabetic nephropathy; E78.5 Hyperlipidemia, unspecified; E66.01 Morbid (severe) obesity due to excess calories; I10 Essential (primary) hypertension; Z79.4 Long term (current) use of insulin; Z68.34 Body mass index [BMI] 34.0-34.9, adult | CPT/HCPCS: 82947; 83036; 99212 ==

== ENCOUNTER → 2022-04-19 12:24 | Outpatient (BNVA) | payer MEDICARE, MEDICAID, SELFPAY | PROVIDERS: PCP Internal Medicine; Visit Provider Nurse Practitioner Gerontology | DX: E11.65 Type 2 diabetes mellitus with hyperglycemia (principal); E11.40 Type 2 diabetes mellitus with diabetic neuropathy, unspecified; E11.21 Type 2 diabetes mellitus with diabetic nephropathy; E78.5 Hyperlipidemia, unspecified; I10 Essential (primary) hypertension; E66.01 Morbid (severe) obesity due to excess calories; Z68.35 Body mass index [BMI] 35.0-35.9, adult; Z79.4 Long term (current) use of insulin | CPT/HCPCS: 82947; 99212 ==

== ENCOUNTER → 2022-05-04 08:14 | Outpatient (BNVA) | payer MEDICARE, MEDICAID, SELFPAY | PROVIDERS: PCP Internal Medicine; Referring Provider Internal Medicine; Visit Provider Internal Medicine | DX: I11.0 Hypertensive heart disease with heart failure (principal); I50.32 Chronic diastolic (congestive) heart failure; I25.10 Atherosclerotic heart disease of native coronary artery without angina pectoris; I44.0 Atrioventricular block, first degree; E11.8 Type 2 diabetes mellitus with unspecified complications; G47.33 Obstructive sleep apnea (adult) (pediatric); Z79.82 Long term (current) use of aspirin; Z79.899 Other long term (current) drug therapy | CPT/HCPCS: 99212 ==

== ENCOUNTER 2022-05-19 08:14 | Outpatient (REF) | payer MEDICARE, MEDICAID, SELFPAY ==
[2022-05-19 10:35] LABS: MANUAL DIFF FLAG NO
[2022-05-19 10:45] LABS: Basophils Absolute Auto 0.1 X10*3/uL (0.0-0.2); Basophils Percent Auto 1.1 % (0-2); Eosinophils Absolute Auto 0.3 X10*3/uL (0.0-0.4); Eosinophils Percent Auto 3.9 % (0-4); Hematocrit 37.7 % (42.0-52.0); Hemoglobin 11.8 g/dl (14.0-18.0); Imm Gran Abs Auto 0.01 X10*3/uL (0.00-0.03); Imm Gran Pct Auto 0.2 % (0.0-0.4); Lymphocytes Absolute Auto 1.3 X10*3/uL (1.2-4.9); Lymphocytes Percent Auto 21.1 % (20-40); Mean Corpuscular HGB Conc 31.3 g/dl (31.0-36.0); Mean Corpuscular Hemoglobin 27.4 pg (27.0-33.0); Mean Corpuscular Volume 87.5 fL (80.0-98.0); Mean Platelet Volume 10.6 fL (9.4-12.4); Monocytes Absolute Auto 0.6 X10*3/uL (0.1-1.2); Monocytes Percent Auto 9.6 % (2-11); Neutrophils Absolute Auto 4.1 x10*3/uL (2.0-8.3); Neutrophils Percent Auto 64.1 % (45-73); Platelet Count 274 X10*3/uL (160-400); Red Blood Count 4.31 X10*6/uL (4.60-5.80); Red Cell Distribution Width 14.5 % (11.0-16.0); White Blood Count 6.4 X10*3/uL (4.8-10.8)
[2022-05-19 10:55] LABS: Anion Gap 13 (12-20); Blood Urea Nitrogen 29 mg/dL (9-16); Calcium 9.1 mg/dL (8.4-10.2); Carbon Dioxide 27 mmol/L (22-29); Chloride 104 mmol/L (96-108); Estimated Glomerular Filt Rate 52; Glucose Random 213 mg/dL (60-115); Potassium 3.9 mmol/L (3.3-5.1); Sodium 140 mmol/L (135-145)
== END 2022-05-19 08:15 | disposition home or self-care (01) ==
LOC: HO.10HDL 08:14
PROVIDERS: Visit Provider Internal Medicine Hypertension Specialist
DX: N18.31 Chronic kidney disease, stage 3a (principal)
CPT/HCPCS: 36415; 80048; 85025

== ENCOUNTER 2022-06-07 08:23 | Outpatient (REF) | payer MEDICARE, MEDICAID, SELFPAY ==
[2022-06-07 10:46] LABS: MANUAL DIFF FLAG NO
[2022-06-07 10:53] LABS: Basophils Absolute Auto 0.1 X10*3/uL (0.0-0.2); Basophils Percent Auto 1.1 % (0-2); Eosinophils Absolute Auto 0.2 X10*3/uL (0.0-0.4); Eosinophils Percent Auto 3.8 % (0-4); Hematocrit 38.6 % (42.0-52.0); Hemoglobin 12.3 g/dl (14.0-18.0); Imm Gran Abs Auto 0.03 X10*3/uL (0.00-0.03); Imm Gran Pct Auto 0.5 % (0.0-0.4); Lymphocytes Absolute Auto 1.4 X10*3/uL (1.2-4.9); Lymphocytes Percent Auto 23.1 % (20-40); Mean Corpuscular HGB Conc 31.9 g/dl (31.0-36.0); Mean Corpuscular Hemoglobin 27.5 pg (27.0-33.0); Mean Corpuscular Volume 86.2 fL (80.0-98.0); Mean Platelet Volume 10.9 fL (9.4-12.4); Monocytes Absolute Auto 0.6 X10*3/uL (0.1-1.2); Monocytes Percent Auto 8.8 % (2-11); Neutrophils Absolute Auto 3.9 x10*3/uL (2.0-8.3); Neutrophils Percent Auto 62.7 % (45-73); Platelet Count 234 X10*3/uL (160-400); Red Blood Count 4.48 X10*6/uL (4.60-5.80); Red Cell Distribution Width 14.8 % (11.0-16.0); White Blood Count 6.2 X10*3/uL (4.8-10.8)
[2022-06-07 11:11] LABS: Alanine Aminotransferase 11 U/L (0-40); Albumin Level 3.8 g/dL (3.5-5.0); Alkaline Phosphatase 108 U/L (39-117); Anion Gap 16 (12-20); Aspartate Amino Transferase 12 U/L (5-37); Bilirubin Total 0.2 mg/dL (0.0-1.0); Blood Urea Nitrogen 31 mg/dL (9-16); Calcium 9.1 mg/dL (8.4-10.2); Carbon Dioxide 26 mmol/L (22-29); Chloride 105 mmol/L (96-108); Estimated Glomerular Filt Rate 52; Glucose Fasting 174 mg/dL (60-99); Potassium 4.1 mmol/L (3.3-5.1); Sodium 143 mmol/L (135-145); Total Protein 7.5 g/dL (6.5-8.0)
[2022-06-07 11:12] LABS: Estimated Average Glucose 197 mg/dL; Hemoglobin A1c % 8.5 %
[2022-06-07 11:34] LABS: Prostate Specific Antigen 2.22 ng/mL (<0.05-4.0)
[2022-06-07 12:28] LABS: Phenytoin Dilantin 10.9 ug/mL (10.0-20.0)
== END 2022-06-07 08:24 | disposition home or self-care (01) ==
LOC: HO.10HDL 08:23
PROVIDERS: Visit Provider Internal Medicine
DX: Z12.5 Encounter for screening for malignant neoplasm of prostate (principal); I12.9 Hypertensive chronic kidney disease with stage 1 through stage 4 chronic kidney disease, or unspecified chronic kidney disease; N18.9 Chronic kidney disease, unspecified; E11.22 Type 2 diabetes mellitus with diabetic chronic kidney disease; E11.40 Type 2 diabetes mellitus with diabetic neuropathy, unspecified; L82.1 Other seborrheic keratosis; N40.0 Benign prostatic hyperplasia without lower urinary tract symptoms
CPT/HCPCS: 36415; 80053; 80185; 83036; 84153; 85025

== ENCOUNTER → 2022-06-08 13:39 | Outpatient (REF) | payer MEDICARE, MEDICAID, SELFPAY ==
--- NOTE | 2022-06-08 13:43 | CA_ITS ---
Transthoracic Echocardiogram Patient (Last, First, Middle): Andres Weinstein, Gender: Male Date of : 1940 Age: 82 Procedure Date: 06/08/2022 Procedure Type: Transthoracic Echocardiogram Location: OP Height: 165.1 cm Weight: 98.01 kg BSA: 2.04 m2 Heart Rate: 65 bpm BP: 124 / 68 mmHg Feeder/Folder: SB Referring MD: Markos Long MD Symptoms: I50.32 - Chronic diastolic (congestive) heart failure Study Quality: Fair but adequate ECG Rhythm: Sinus Conclusions: - The left ventricular systolic function is normal. The visually estimated ejection fraction is between 55-60%. - There is moderate septal asymmetric hypertrophy. - There is moderate mitral annular calcification. - No obvious valvular pathology seen on this study. Findings Left Ventricle Normal left ventricular cavity size. The left ventricular systolic function is normal. The visually estimated ejection fraction is between 55-60%. There is no evidence of regional wall motion abnormalities. E/E prime ratio is >15, consistent with elevated filling pressures. Evidence suggests grade I (mild) diastolic dysfunction. There is moderate septal asymmetric hypertrophy. Right Ventricle Normal right ventricular cavity size and systolic function. Atria Both atria are normal in size. Aortic Valve There is a normal trileaflet aortic valve. There is no aortic valve stenosis. There is no aortic valve regurgitation. Mitral Valve There is moderate mitral annular calcification. There is no mitral valve regurgitation. There is no mitral valve stenosis. Pulmonic Valve The pulmonic valve is likely normal. Tricuspid Valve There is trace tricuspid valve regurgitation. Tricuspid regurgitation envelope is inadequate for calculation of right ventricular systolic pressure. Great Vessels The asc aorta is normal in size. Venous The inferior vena cava is normal in size and collapses greater than 50% with inspiration. Pericardium/Pleural There is no evidence of pericardial effusion. Prior Study Comparison No significant change compared to prior study dated: 06/03/2020. Recommendations, Care & Conclusions No obvious valvular pathology seen on this study. Measurements 2D Linear Measurements IVSd: 1.57 0.6-0.9/0.6-1.0 cm LVIDd: 5.38 3.9-5.3/4.2-5.9 cm LVIDd Index: 2.64 2.4-3.2/2.2-3.1 cm/m2 LVIDs: 3.60 2.0-3.6 cm LVPWd: 0.91 0.7-1.1 cm LA Diam: 4.20 2.7-3.8/3.0-4.0 cm LAIDs Index: 2.06 1.5-2.3 cm/m2 LV Mass: 342.48 67-162/88-224 g LV Mass Index: 167.88 43-95/49-115 g/m2 LVOT Diam: 2.50 3.0+(-)1.3 cm 2D Systolic Function EF 4C: 52.20 >55% Mitral Valve MV Pk E: 0.84 MV PK A: 1.02 MV Decel Time: 231.00 E/A: 0.80 E'Lateral: 4.33 E'Medial: 3.64 E/E' Med: 23.00 E/E' Lat: 19.40 PHT: 68.00 MVA PHT: 3.24 Decel [place]: 3.64 Aortic Valve AoV Pk Jaime: 1.10 AoV Mn Jaime: 0.79 AoV VTI: 0.23 AoV Pk Grad: 5.00 Aov Mn Grad: 3.00 YAS Cont.VTI: 3.94 LVOT LVOT Pk Jaime: 0.84 LVOT Mn Jaime: 0.65 LVOT VTI: 0.18 LVOT Pk Grad: 3.00 LVOT Mn Grad: 2.00 LVOT Diam: 2.50 LVOT Area: 4.91 Diastolic Function MV Pk E: 0.84 MV Pk A: 1.02 E/A: 0.80 E'Medial: 3.64 E/E' Med: 23.00 E' Laterial: 4.33 E/E' Lat: 19.40 Right Ventricle TAPSE (mm): 21.40 TVS' Jaime: 13.50 Tricuspid Valve RA Press: 3.00 Great Vessels Aorta Sinus of Valsalva: 3.90 2.0-3.5 cm Ao Asc: 4.10 2.1-3.4 cm Pulmonary Valve PV Pk Jaime: 0.92 Peak PV Grad: 3.00 Updated in Other Vendor System with Status of Final Markos Long MD electronically signed on 06/10/2022 12:18:39 PM with status of Final
== END ==
LOC: HO.CARD 13:39
PROVIDERS: PCP Internal Medicine; Visit Provider Internal Medicine
DX: I50.32 Chronic diastolic (congestive) heart failure (principal)
CPT/HCPCS: 93306

== ENCOUNTER 2022-07-03 17:26 | Emergency (ER) | payer MEDICARE, MEDICAID, SELFPAY ==
[2022-07-03 18:46] VITALS: BP 149/71; PULSE 75; RESP 16; TEMP 36.5; O2SAT 97; BMI 33.7
--- NOTE | 2022-07-03 19:58 | ED.SKABFB ---
HPI - Skin/Abscess/Foreign Bdy General Chief complaint: Skin/Abscess/Foreign Body Stated complaint: Cyst on Buttock Area Time Seen by Provider: 07/03/22 19:27 Source: patient Mode of arrival: ambulatory History of Present Illness HPI narrative: 82-year-old male with a past medical history of BPH, CAD, CHF, CKD, HTN, hypokalemia, hyperparathyroidism, diabetes, presenting to the ED complaining persistent right buttock abscess x few days. Admits soft PCP and has been on Keflex x3 days without improvement. Reports increasing size/erythema and fever T-max 100.0 degrees. Denies drainage from area, inability to have BM, bloody BMs, nausea/vomiting, abdominal pain MD complaint: abscess/boil Onset (ago): day(s) Related Data Home Medications Medication Instructions Recorded Confirmed aspirin 81 mg tablet,delayed 81 mg PO DAILY 08/12/20 05/04/22 release (Adult Low Dose Aspirin) pantoprazole 40 mg tablet,delayed 40 mg PO DAILY 08/12/20 05/04/22 release rosuvastatin 40 mg tablet 40 mg PO DAILY 08/12/20 05/04/22 blood sugar diagnostic #10 ea 09/15/20 05/04/22 metoprolol succinate 100 mg 100 mg PO DAILY 09/15/20 05/04/22 tablet,extended release 24 hr phenytoin sodium extended 300 mg 300 mg PO BEDTIME 02/01/22 05/04/22 capsule spironolactone 25 mg tablet 25 mg PO DAILY 04/19/22 05/04/22 ibuprofen 600 mg tablet 600 mg PO TID 05/04/22 05/04/22 pregabalin 100 mg capsule 100 mg PO BID 05/04/22 05/04/22 Previous Rx's Medication Instructions Recorded furosemide 80 mg tablet 80 mg PO BID #180 tabs 12/29/20 nitroglycerin 0.4 mg sublingual 0.4 mg sublingual .COMPLEX #75 tabs 02/19/21 tablet phenytoin sodium extended 100 mg 200 mg PO BEDTIME #30 caps 05/19/21 capsule (Dilantin Extended) phenytoin sodium extended 100 mg 300 mg PO DAILY #30 caps 05/19/21 capsule (Dilantin Extended) pregabalin 75 mg capsule 75 mg PO BID #30 caps 08/30/21 cyclobenzaprine 10 mg tablet 10 mg PO Q8H #20 tabs 12/08/21 pen needle, diabetic 32 gauge x #150 ea 02/15/22 (BD Ultra-Fine Nicole Pen Needle) isosorbide mononitrate 30 mg 30 mg PO DAILY 30 days #30 tabs 03/07/22 tablet,extended release 24 hr BD Nicole 2nd Gen Pen Needle 32 #200 ea 04/19/22 gauge x (pen needle, diabetic) duloxetine 30 mg capsule,delayed 60 mg PO DAILY #60 caps 04/19/22 release empagliflozin 10 mg tablet 10 mg PO QAM #30 tabs 04/19/22 (Jardiance) insulin aspart U-100 100 unit/mL See Rx Instructions subcut TID #30 04/19/22 (3 mL) subcutaneous pen (Novolog mL Flexpen U-100 Insulin aspart) tamsulosin 0.4 mg capsule 0.4 mg PO DAILY 90 days #90 caps 05/03/22 insulin glargine 100 unit/mL (3 28 unit (0.28 mL) subcut DAILY #15 05/24/22 mL) subcutaneous pen (Basaglar mL KwikPen U-100 Insulin) cephalexin 500 mg capsule 500 mg PO QID 3 days #12 caps 07/03/22 doxycycline hyclate 100 mg tablet 100 mg PO BID 10 days #20 tabs 07/03/22 tramadol 50 mg tablet 50 mg PO Q8H PRN pain, severe #9 07/03/22 tabs Allergies Allergy/AdvReac Type Severity Reaction Status Date / Time codeine [CODEINE] Allergy Unknown UNKNOWN Verified 05/04/22 08:19 lisinopril Allergy Unknown unknown Uncoded 02/15/22 13:22 Review of Systems Review of Systems: Constitutional: No Fever, No Chills, No Fatigue, No Malaise ENT/Mouth: No Ear Pain, No Nasal Congestion, No sore throat, No Rhinorrhea, No Swallowing Difficulty Eyes: No Eye Pain, No Swelling, No Redness Cardiovascular: No Chest Pain, No SOB, No Edema, No Palpitations Respiratory: No Cough, No Sputum, No Dyspnea Gastrointestinal: No Nausea, No Vomiting, No Diarrhea, No Constipation, No Abdominal pain Genitourinary: No irregular bleeding, No Dysuria, No Urinary Frequency, No Hematuria, No Flank Pain Musculoskeletal: No joint pain, No Myalgias, No Joint Swelling Skin: + Skin Lesions, No rash Neuro: No Weakness, No Dizziness, No Headache Yes all other systems are reviewed and are negative Constitutional: Constitutional: Reports as per [facility] Past Medical History Attestation statement: The following information was validated with the patient. Medical History (HFpEF) heart failure with preserved ejection fraction BPH (benign prostatic hyperplasia) CAD (coronary artery disease) CHF (congestive heart failure) CHF (congestive heart failure) CKD (chronic kidney disease) Coronary stent patent Diabetes mellitus, type 2 Diabetic nephropathy associated with type 2 diabetes mellitus Diabetic neuropathy associated with type 2 diabetes mellitus Dyslipidemia Epilepsy Hypertension Hypokalemia Neuropathy associated with endocrine disorder Obesity due to excess calories Secondary hyperparathyroidism Type 2 diabetes mellitus with hyperglycemia, with long-term current use of insulin Surgical History Hx of cardiac cath Stented coronary artery Family History Family History Father Diabetes CVD (cardiovascular disease) Mother Diabetes Brother Diabetes Son Thyroid disease Lung disease Psoriasis HTN (hypertension) Social History Social History Household Members: Spouse and Family Housing: Apartment Do you presently have visiting nurse or other home services: No Alcohol intake: former Patient Tobacco Use Status: Former Tobacco user Advance Directives: Yes Advance Directives on File: Yes Advance Directives Date on File: 05/18/21 service: No Current occupational status: retired Physical Exam Vital Signs: Vital Signs: Last Vital Signs Temp 98.7 F 07/03/22 20:08 Pulse 72 07/03/22 20:08 Resp 18 07/03/22 20:08 BP 107/62 07/03/22 20:11 Pulse Ox 97 07/03/22 20:08 O2 Del Method 07/03/22 20:08 BMI result Body Mass Index 33.7 Const: General: cooperative, healthy appearing and no acute distress Orientation/consciousness: patient oriented x3 Limitations: no limitations HEENT: Head: Yes normal to inspection and Yes atraumatic Ears: hearing grossly normal bilaterally General nose exam: Normal external nose present Face and sinus: Yes normal facial exam Eyes: General: appearance normal, both eyes and all related structures EOM: EOMs intact bilaterally Neck: Neck: Yes normal visual inspection and Yes no meningeal signs Resp: Effort & Inspection: normal respiratory effort and no respiratory distress Cardio: Rate: regular rate Heart sounds: S1 normal heart sound present and S2 normal heart sound present GI: Other: + right buttock abscess noted with mild pointing, + indurated with a small area of fluctuance. No rectal involvement, no appreciable fissure/tracking. No overlying cellulitis Inspection: Yes normal to inspection Palpation (GI): Soft to palpation, nontender, no guarding and not rigid Rectal Exam - Male: No hemorrhoids : General: Yes no CVA tenderness Back/Spine/Pelvis: Back: no CVA tenderness Skin: Rashes: no rashes Wounds: no wounds Neuro: General: patient oriented x3, tone normal and no meningeal signs Gait exam (Neuro): Normal gait present Extrem: General: Yes normal to inspection MDM - Skin/Abscess/Foreign Bdy MDM Narrative Medical decision making narrative: 82-year-old male with a past medical history of BPH, CAD, CHF, CKD, HTN, hypokalemia, hyperparathyroidism, diabetes, presenting to the ED complaining persistent right buttock abscess x few days. On exam vital signs stable, afebrile, NAD, physical exam as above consistent with perianal abscess, no appreciable rectal involvement. No overlying cellulitis. No evidence of Jennifer gangrene. Will perform I&D in the ED and add on additional coverage with doxycycline. Will extend antibiotics to total 10 days Differential Diagnosis Differential diagnosis: Likely abscess of skin or subcutaneous tissue Medical Records Attestation: I reviewed the patient's medical records. Lab Data Attestation: I reviewed the patient's lab results. Discharge Plan Discharge Clinical Impression: Perianal abscess Patient Disposition: Home, Self-Care Instructions: Abscess Follow-up (ED) Additional Instructions: Continue taking previously prescribed Keflex, I will extend the prescription for to total 10 days Additionally start taking doxycycline. Apply warm compresses to area to help drain infection. Have close follow-up with her doctor. If symptoms persist or worsen, area becomes more swollen/red, increases in drainage, patient is having fevers, difficulty or inability to defecate return to the emergency department Tramadol as an opiate pain medication, take only when pain is severe for the next 3 days Contin?e tomando Keflex recetado anteriormente, hospitalist nocturnist physician? la receta por un total de 10 d?as Adem?s, comience a rosanna doxiciclina. Aplique compresas tibias en el ?aylin para ayudar a drenar la infecci?n. Tenga un seguimiento cercano con vargas m?dico. Si los s?ntomas persisten o empeoran, el ?aylin se vuelve m?s hinchada/viviana, aumenta el drenaje, el paciente tiene fiebre, dificultad o incapacidad para defecar, regrese al departamento de emergencias. Tramadol walter analg?sico opi?patient relations representative, t?cabrales solo cuando el dolor sea intenso morgan los pr?ximos 3 d?as Prescriptions: New cephalexin 500 mg capsule 500 mg PO QID 3 Days Qty: 12 0RF doxycycline hyclate 100 mg tablet 100 mg PO BID 10 Days Qty: 20 0RF tramadol 50 mg tablet 50 mg PO Q8H PRN (Reason: pain, severe) Qty: 9 0RF No Action furosemide 80 mg tablet 80 mg PO BID Qty: 180 1RF nitroglycerin 0.4 mg tablet, sublingual 0.4 mg sublingual .COMPLEX Qty: 75 3RF Rx Instructions: 0.4 mg sublingual One tab under the tongue every 5 minutes as needed for chest pain up to 3; pregabalin 75 mg capsule 75 mg PO BID Qty: 30 5RF isosorbide mononitrate 30 mg tablet extended release 24 hr 30 mg PO DAILY 30 Days Qty: 30 5RF tamsulosin 0.4 mg capsule 0.4 mg PO DAILY 90 Days Qty: 90 0RF Basaglar KwikPen U-100 Insulin 100 unit/mL (3 mL) insulin pen 28 unit subcut DAILY Qty: 15 4RF phenytoin sodium extended [Dilantin Extended] 100 mg Capsule 300 mg PO DAILY Qty: 30 0RF phenytoin sodium extended [Dilantin Extended] 100 mg Capsule 200 mg PO BEDTIME Qty: 30 0RF cyclobenzaprine 10 mg tablet 10 mg PO Q8H Qty: 20 0RF (DME) blood sugar diagnostic Strip See Rx Instructions Not Applicable TID Qty: 10 Rx Instructions: As directed metoprolol succinate 100 mg tablet extended release 24 hr 100 mg PO DAILY aspirin [Adult Low Dose Aspirin] 81 mg tablet,delayed release (DR/EC) 81 mg PO DAILY rosuvastatin 40 mg tablet 40 mg PO DAILY pantoprazole 40 mg tablet,delayed release (DR/EC) 40 mg PO DAILY phenytoin sodium extended 300 mg capsule 300 mg PO BEDTIME (DME) pen needle, diabetic [BD Ultra-Fine Nicole Pen Needle] 32 gauge x 5/32 needle See Rx Instructions .ROUTE .MEDSUPPLY Qty: 150 11RF Rx Instructions: As directed five times a day spironolactone 25 mg tablet 25 mg PO DAILY Jardiance 10 mg tablet 10 mg PO QAM Qty: 30 6RF duloxetine 30 mg capsule,delayed release(DR/EC) 60 mg PO DAILY Qty: 60 6RF Rx Instructions: Use 30mg (1 cap) for 2 weeks, then increase to 60mg (2 caps) insulin aspart U-100 [Novolog Flexpen U-100 Insulin] 100 unit/mL (3 mL) insulin pen See Rx Instructions subcut TID Qty: 30 6RF Rx Instructions: 8 units for breakfast, 14 units for lunch, 10 units for dinner, 5 for snack + 2 units for bg over 200. subcut 3 times a day; (DME) pen needle, diabetic [BD Nicole 2nd Gen Pen Needle] 32 gauge x 5/32 needle See Rx Instructions .MEDSUPPLY Qty: 200 10RF Rx Instructions: 5 times a day ibuprofen 600 mg tablet 600 mg PO TID pregabalin 100 mg capsule 100 mg PO BID Referrals: Pushpa Ruvalcaba MD [Primary Care Provider] - 2 days (For re-evaluation) Print Language: Bengali
[2022-07-03 20:08] VITALS: BP 96/60; PULSE 72; RESP 18; TEMP 37.1; O2SAT 97
[2022-07-03 20:10] VITALS: BP 107/62
[2022-07-03] MEDS: Lidocaine HCl 2%/Epi 1:100,000 20 ML VIAL INFILTRATI (20:10)
[2022-07-03 20:11] VITALS: BP 107/62
[2022-07-03] MEDS: Ketorolac Tromethamine 30 MG/ML VIAL IM (20:47)
== END 2022-07-03 20:54 | disposition home or self-care (01) ==
PROVIDERS: Emergency Provider Internal Medicine; PCP Internal Medicine
DX: K61.0 Anal abscess (principal); I25.10 Atherosclerotic heart disease of native coronary artery without angina pectoris; Z87.891 Personal history of nicotine dependence; Z79.899 Other long term (current) drug therapy
CPT/HCPCS: 46050; 96372; 99284; J1885

== ENCOUNTER → 2022-07-20 13:26 | Outpatient (BNVA) | payer MEDICARE, MEDICAID, SELFPAY | PROVIDERS: PCP Internal Medicine; Referring Provider Internal Medicine; Visit Provider Surgery | DX: L72.0 Epidermal cyst (principal) | CPT/HCPCS: 99202 ==

== ENCOUNTER 2022-07-28 11:39 | Outpatient (REF) | payer MEDICARE, MEDICAID, SELFPAY ==
[2022-07-28 12:03] LABS: MANUAL DIFF FLAG NO
[2022-07-28 12:38] LABS: Basophils Absolute Auto 0.1 X10*3/uL (0.0-0.2); Basophils Percent Auto 1.4 % (0-2); Eosinophils Absolute Auto 0.2 X10*3/uL (0.0-0.4); Eosinophils Percent Auto 4.2 % (0-4); Hematocrit 36.5 % (42.0-52.0); Hemoglobin 11.8 g/dl (14.0-18.0); Imm Gran Abs Auto 0.02 X10*3/uL (0.00-0.03); Imm Gran Pct Auto 0.3 % (0.0-0.4); Lymphocytes Absolute Auto 1.3 X10*3/uL (1.2-4.9); Lymphocytes Percent Auto 22.9 % (20-40); Mean Corpuscular HGB Conc 32.3 g/dl (31.0-36.0); Mean Corpuscular Volume 86.7 fL (80.0-98.0); Mean Platelet Volume 10.3 fL (9.4-12.4); Monocytes Absolute Auto 0.6 X10*3/uL (0.1-1.2); Monocytes Percent Auto 9.5 % (2-11); Neutrophils Absolute Auto 3.6 x10*3/uL (2.0-8.3); Neutrophils Percent Auto 61.7 % (45-73); Platelet Count 244 X10*3/uL (160-400); Red Blood Count 4.21 X10*6/uL (4.60-5.80); Red Cell Distribution Width 15.8 % (11.0-16.0); White Blood Count 5.8 X10*3/uL (4.8-10.8)
[2022-07-28 13:12] LABS: Alanine Aminotransferase 11 U/L (0-40); Albumin Level 3.8 g/dL (3.5-5.0); Alkaline Phosphatase 101 U/L (39-117); Anion Gap 15 (12-20); Aspartate Amino Transferase 13 U/L (5-37); Bilirubin Total 0.3 mg/dL (0.0-1.0); Blood Urea Nitrogen 26 mg/dL (9-16); Calcium 8.8 mg/dL (8.4-10.2); Carbon Dioxide 24 mmol/L (22-29); Chloride 107 mmol/L (96-108); Estimated Glomerular Filt Rate 58; Glucose Random 220 mg/dL (60-115); Sodium 142 mmol/L (135-145); Total Protein 7.3 g/dL (6.5-8.0)
== END 2022-07-28 11:40 | disposition home or self-care (01) ==
LOC: HO.LAB 11:39
PROVIDERS: Visit Provider Internal Medicine
DX: I12.9 Hypertensive chronic kidney disease with stage 1 through stage 4 chronic kidney disease, or unspecified chronic kidney disease (principal); R19.7 Diarrhea, unspecified
CPT/HCPCS: 36415; 80053; 85025

== ENCOUNTER → 2022-08-10 09:01 | Outpatient (BNVA) | payer MEDICARE, MEDICAID, SELFPAY | PROVIDERS: PCP Internal Medicine; Referring Provider Internal Medicine; Visit Provider Surgery | DX: L72.0 Epidermal cyst (principal) | CPT/HCPCS: 99212 ==

== ENCOUNTER 2022-08-23 14:09 | Outpatient (REF) | payer MEDICARE, MEDICAID, SELFPAY ==
--- NOTE | ~2022-08-23 | XR_ITS ---
EXAMINATION: XR HIP, LEFT CLINICAL INFORMATION: Left hip pain COMPARISON: 04/10/2020 TECHNIQUE: Two views of the left hip. FINDINGS: The visualized pelvic bones are intact. No focal lytic or blastic blastic lesion. There appears to be chronic, minimal osteophyte formation at the left hip. The hip joint spaces well-preserved. No evidence of proximal femoral fracture or subluxation. There is atherosclerotic calcification of peripheral vessels. XR/XR hip LT min 2V IMPRESSION: Minimal osteoarthrosis of the left hip. No fracture or malalignment. No significant radiographic abnormalities.
== END 2022-08-23 14:10 | disposition home or self-care (01) ==
LOC: HO.XRAY 14:09
PROVIDERS: PCP Internal Medicine; Visit Provider Internal Medicine
DX: M25.552 Pain in left hip (principal)
CPT/HCPCS: 73502

== ENCOUNTER → 2022-08-29 14:56 | Outpatient (BNVA) | payer MEDICARE, MEDICAID, SELFPAY | PROVIDERS: PCP Internal Medicine; Visit Provider Surgery | DX: L02.31 Cutaneous abscess of buttock (principal) | CPT/HCPCS: 10060; 99212 ==

== ENCOUNTER → 2022-09-12 13:52 | Outpatient (BNVA) | payer MEDICARE, MEDICAID, SELFPAY | PROVIDERS: PCP Internal Medicine; Referring Provider Internal Medicine; Visit Provider Internal Medicine | DX: I11.0 Hypertensive heart disease with heart failure (principal); I50.32 Chronic diastolic (congestive) heart failure; I25.10 Atherosclerotic heart disease of native coronary artery without angina pectoris; I44.0 Atrioventricular block, first degree; E11.8 Type 2 diabetes mellitus with unspecified complications; G47.33 Obstructive sleep apnea (adult) (pediatric) | CPT/HCPCS: 93005; 99212 ==

== ENCOUNTER → 2022-09-14 15:37 | Outpatient (BNVA) | payer MEDICARE, MEDICAID, SELFPAY | PROVIDERS: PCP Internal Medicine; Visit Provider Surgery | DX: L72.0 Epidermal cyst (principal); L02.31 Cutaneous abscess of buttock | CPT/HCPCS: 99212 ==

== ENCOUNTER → 2022-09-16 14:40 | Outpatient (REF) | payer MEDICARE, MEDICAID, SELFPAY ==
--- NOTE | 2022-09-16 14:43 | HM_ITS ---
Conclusion: 1. Patient was monitored for total period of 2 days and 23 hours 2. Baseline was normal sinus rhythm with average heart of 73 beats per minute intermittent first-degree AV block 3. No significant pauses or bradycardia noted 4. Rare ectopy noted 5. No patient reported events MTDD
== END ==
LOC: HO.CARD 14:40
PROVIDERS: PCP Internal Medicine; Visit Provider Internal Medicine
DX: I49.8 Other specified cardiac arrhythmias (principal)
CPT/HCPCS: 93242

== ENCOUNTER 2022-10-03 08:15 | Outpatient (REF) | payer MEDICARE, MEDICAID, SELFPAY ==
[2022-10-03 11:06] LABS: Alanine Aminotransferase 11 U/L (0-40); Albumin Level 3.6 g/dL (3.5-5.0); Alkaline Phosphatase 102 U/L (39-117); Anion Gap 12 (12-20); Aspartate Amino Transferase 12 U/L (5-37); Bilirubin Total 0.3 mg/dL (0.0-1.0); Blood Urea Nitrogen 40 mg/dL (9-16); Calcium 8.7 mg/dL (8.4-10.2); Carbon Dioxide 30 mmol/L (22-29); Chloride 103 mmol/L (96-108); Estimated Glomerular Filt Rate 46; Glucose Fasting 225 mg/dL (60-99); Potassium 3.5 mmol/L (3.3-5.1); Sodium 141 mmol/L (135-145); Total Protein 7.2 g/dL (6.5-8.0)
[2022-10-03 11:24] LABS: Estimated Average Glucose 220 mg/dL; Hemoglobin A1c % 9.3 %
== END 2022-10-03 08:16 | disposition home or self-care (01) ==
LOC: HO.10HDL 08:15
PROVIDERS: Visit Provider Internal Medicine
DX: I12.9 Hypertensive chronic kidney disease with stage 1 through stage 4 chronic kidney disease, or unspecified chronic kidney disease (principal); E11.22 Type 2 diabetes mellitus with diabetic chronic kidney disease; E11.40 Type 2 diabetes mellitus with diabetic neuropathy, unspecified; G40.109 Localization-related (focal) (partial) symptomatic epilepsy and epileptic syndromes with simple partial seizures, not intractable, without status epilepticus; N18.9 Chronic kidney disease, unspecified
CPT/HCPCS: 36415; 80053; 83036

== ENCOUNTER 2022-10-10 14:49 | Outpatient (REF) | payer MEDICARE, MEDICAID, SELFPAY | END 2022-10-10 14:50 | disposition home or self-care (01) | LOC: HO.LNP 14:49 | PROVIDERS: PCP Internal Medicine; Visit Provider Surgery | DX: L72.0 Epidermal cyst (principal); L02.31 Cutaneous abscess of buttock | CPT/HCPCS: 11402; 88304 ==

== ENCOUNTER → 2022-10-27 09:32 | Outpatient (BNVA) | payer MEDICARE, MEDICAID, SELFPAY | PROVIDERS: PCP Internal Medicine; Visit Provider Physician Assistant Surgical | DX: L02.31 Cutaneous abscess of buttock (principal); L72.0 Epidermal cyst | CPT/HCPCS: 99212 ==

== ENCOUNTER → 2022-11-10 11:12 | Outpatient (BNVA) | payer MEDICARE, MEDICAID, SELFPAY | PROVIDERS: PCP Internal Medicine; Visit Provider Surgery | DX: Z13.89 Encounter for screening for other disorder (principal) ==

== ENCOUNTER 2022-11-15 07:44 | Outpatient (REF) | payer MEDICARE, MEDICAID, SELFPAY ==
[2022-11-15 10:36] LABS: Hemoglobin 12.5 g/dl (14.0-18.0); Mean Corpuscular HGB Conc 32.1 g/dl (31.0-36.0); Mean Corpuscular Hemoglobin 28.3 pg (27.0-33.0); Mean Corpuscular Volume 88.2 fL (80.0-98.0); Mean Platelet Volume 10.7 fL (9.4-12.4); Platelet Count 233 X10*3/uL (160-400); Red Blood Count 4.42 X10*6/uL (4.60-5.80); Red Cell Distribution Width 14.2 % (11.0-16.0); White Blood Count 5.3 X10*3/uL (4.8-10.8)
[2022-11-15 10:49] LABS: Anion Gap 11 (12-20); Blood Urea Nitrogen 21 mg/dL (9-16); Calcium 9.1 mg/dL (8.4-10.2); Carbon Dioxide 30 mmol/L (22-29); Chloride 103 mmol/L (96-108); Estimated Glomerular Filt Rate > 60; Glucose Random 139 mg/dL (60-115); Potassium 4.3 mmol/L (3.3-5.1); Sodium 140 mmol/L (135-145)
== END 2022-11-15 07:45 | disposition home or self-care (01) ==
LOC: HO.10HDL 07:44
PROVIDERS: Visit Provider Internal Medicine Hypertension Specialist
DX: E11.22 Type 2 diabetes mellitus with diabetic chronic kidney disease (principal)
CPT/HCPCS: 36415; 80048; 85027

== ENCOUNTER → 2023-01-10 08:24 | Outpatient (BNVA) | payer MEDICARE, MEDICAID, SELFPAY | PROVIDERS: PCP Internal Medicine; Visit Provider Urology | DX: N40.0 Benign prostatic hyperplasia without lower urinary tract symptoms (principal) | CPT/HCPCS: Q3014 ==

== ENCOUNTER → 2023-01-11 13:16 | Outpatient (BNVA) | payer MEDICARE, MEDICAID, SELFPAY | PROVIDERS: PCP Internal Medicine; Referring Provider Internal Medicine; Visit Provider Internal Medicine | DX: I50.32 Chronic diastolic (congestive) heart failure (principal); I25.10 Atherosclerotic heart disease of native coronary artery without angina pectoris; I44.0 Atrioventricular block, first degree; E11.65 Type 2 diabetes mellitus with hyperglycemia; E11.22 Type 2 diabetes mellitus with diabetic chronic kidney disease; E11.40 Type 2 diabetes mellitus with diabetic neuropathy, unspecified; E11.21 Type 2 diabetes mellitus with diabetic nephropathy; N18.9 Chronic kidney disease, unspecified; G47.33 Obstructive sleep apnea (adult) (pediatric); Z95.5 Presence of coronary angioplasty implant and graft; Z79.4 Long term (current) use of insulin; Z79.899 Other long term (current) drug therapy | CPT/HCPCS: 99212 ==

== ENCOUNTER 2023-02-26 12:16 | Emergency (ER) | payer MEDICARE, MEDICAID, SELFPAY ==
--- NOTE | ~2023-02-26 | XR_ITS ---
EXAMINATION: XR chest 2V CLINICAL INFORMATION: Reason for Exam chest pain COMPARISON: Prior chest x-ray 2020 TECHNIQUE: XR chest 2V Tubes and lines: None Lungs and pleura: Mild diffuse increased interstitial lung marking and peribronchial cuffing might be a small airway disease such as bronchiolitis or interstitial pneumonitis, versus interstitial lung disease versus interstitial edema. This might have been exaggerated by poor inspiration. No dense focal consolidation pneumonia. Heart and mediastinum: The mediastinum is within normal limits.. Bones/soft tissue: Skeletal structures included are normal for patient's age. XR/XR chest 2V IMPRESSION: * Mild diffuse increased interstitial lung marking and peribronchial cuffing might be a small airway disease such as bronchiolitis or interstitial pneumonitis, versus interstitial lung disease versus interstitial edema. This might have been exaggerated by poor inspiration. * No dense focal consolidation pneumonia.
[2023-02-26 12:24] VITALS: BP 210/130; PULSE 80; O2SAT 99
[2023-02-26 12:28] VITALS: BP 136/79; PULSE 70; RESP 16; TEMP 36.7; O2SAT 98; BMI 29.0
--- NOTE | 2023-02-26 12:46 | ECG_ITS ---
Test Reason : CHEST PAIN Blood Pressure : / mmHG Vent. Rate : 066 BPM Atrial Rate : 000 BPM P-R Int : 000 ms QRS Dur : 096 ms QT Int : 432 ms P-R-T Axes : 000 036 071 degrees QTc Int : 452 ms Normal sinus rhythm with 1st degree A-V block Borderline ECG When compared with ECG of 02-JUL-2021 03:03, No significant changes seen Referred By: Shantal Curry Electronically Signed By:JEANIE FONTENOT MD
[2023-02-26 12:51] LABS: MANUAL DIFF FLAG NO
[2023-02-26 12:53] LABS: Basophils Absolute Auto 0.1 X10*3/uL (0.0-0.2); Basophils Percent Auto 1.2 % (0-2); Eosinophils Absolute Auto 0.2 X10*3/uL (0.0-0.4); Eosinophils Percent Auto 3.5 % (0-4); Hematocrit 37.9 % (42.0-52.0); Hemoglobin 12.6 g/dl (14.0-18.0); Imm Gran Abs Auto 0.02 X10*3/uL (0.00-0.03); Imm Gran Pct Auto 0.3 % (0.0-0.4); Lymphocytes Absolute Auto 1.4 X10*3/uL (1.2-4.9); Lymphocytes Percent Auto 21.8 % (20-40); Mean Corpuscular HGB Conc 33.2 g/dl (31.0-36.0); Mean Corpuscular Hemoglobin 29.5 pg (27.0-33.0); Mean Corpuscular Volume 88.8 fL (80.0-98.0); Mean Platelet Volume 10.2 fL (9.4-12.4); Monocytes Absolute Auto 0.6 X10*3/uL (0.1-1.2); Monocytes Percent Auto 9.2 % (2-11); Neutrophils Absolute Auto 4.2 x10*3/uL (2.0-8.3); Platelet Count 255 X10*3/uL (160-400); Red Blood Count 4.27 X10*6/uL (4.60-5.80); White Blood Count 6.6 X10*3/uL (4.8-10.8)
[2023-02-26 13:08] LABS: Alanine Aminotransferase 11 U/L (0-40); Alkaline Phosphatase 79 U/L (39-117); Anion Gap 14 (12-20); Aspartate Amino Transferase 14 U/L (5-37); Bilirubin Total 0.3 mg/dL (0.0-1.0); Blood Urea Nitrogen 40 mg/dL (9-16); Calcium 9.5 mg/dL (8.4-10.2); Carbon Dioxide 26 mmol/L (22-29); Chloride 105 mmol/L (96-108); Creatinine Clr Calc Pharmacy 39.1; Estimated Glomerular Filt Rate 46; Glucose Random 217 mg/dL (60-115); Potassium 3.8 mmol/L (3.3-5.1); Sodium 141 mmol/L (135-145); Total Protein 7.8 g/dL (6.5-8.0)
[2023-02-26 13:14] LABS: B Type Natriuretic Peptide 54 pg/mL (<100)
[2023-02-26 13:15] LABS: Troponin-I High Sensitivity 5.1 ng/L (<3.5-35.0)
[2023-02-26 13:45] VITALS: BP 144/91; PULSE 62; RESP 14; TEMP 36.6; O2SAT 98
--- NOTE | 2023-02-26 14:40 | ED_ITS ---
HPI - General Adult General Chief complaint: Extremity Problem Stated complaint: chest pain Time Seen by Provider: 02/26/23 13:34 Source: patient and family Mode of arrival: ambulatory Limitations: no limitations History of Present Illness HPI narrative: 83-year-old male came in for evaluation of chest pain and bilateral lower extremities pain. Chest pain started while patient in charge pain with mid chest with no radiation lasted for about 3-4 minutes the patient felt fine after, with no radiation of the pain. Patient also been suffering from diabetic peripheral neuropathy been having chronic pain in both feet, feeling he heat and burning sensation to both feet radiating up to both lower extremities, no fall or injury to lower extremities. able to walk at his baseline in the emergency department with the walker that he normally use. Related Data Home Medications Medication Instructions Recorded Confirmed aspirin 81 mg tablet,delayed 81 mg PO DAILY 08/12/20 01/11/23 release (Adult Low Dose Aspirin) pantoprazole 40 mg tablet,delayed 40 mg PO DAILY 08/12/20 01/11/23 release rosuvastatin 40 mg tablet 40 mg PO DAILY 08/12/20 01/11/23 blood sugar diagnostic #10 ea 09/15/20 01/11/23 phenytoin sodium extended 300 mg 300 mg PO BEDTIME 02/01/22 01/11/23 capsule spironolactone 25 mg tablet 25 mg PO DAILY 04/19/22 01/11/23 ibuprofen 600 mg tablet 600 mg PO TID 05/04/22 01/11/23 pregabalin 100 mg capsule 100 mg PO BID 05/04/22 01/11/23 lancets 28 gauge (FreeStyle #100 ea 07/20/22 01/11/23 Lancets) Previous Rx's Medication Instructions Recorded furosemide 80 mg tablet 80 mg PO BID #180 tabs 12/29/20 nitroglycerin 0.4 mg sublingual 0.4 mg sublingual .COMPLEX #75 tabs 02/19/21 tablet phenytoin sodium extended 100 mg 200 mg PO BEDTIME #30 caps 05/19/21 capsule (Dilantin Extended) phenytoin sodium extended 100 mg 300 mg PO DAILY #30 caps 05/19/21 capsule (Dilantin Extended) pregabalin 75 mg capsule 75 mg PO BID #30 caps 08/30/21 cyclobenzaprine 10 mg tablet 10 mg PO Q8H #20 tabs 10/06/21 pen needle, diabetic 32 gauge x #150 ea 02/15/22 5/32 (BD Ultra-Fine Nicole Pen Needle) BD Nicole 2nd Gen Pen Needle 32 #200 ea 04/19/22 gauge x (pen needle, diabetic) duloxetine 30 mg capsule,delayed 60 mg PO DAILY #60 caps 04/19/22 release empagliflozin 10 mg tablet 10 mg PO QAM #30 tabs 04/19/22 (Jardiance) insulin glargine 100 unit/mL (3 28 unit (0.28 mL) subcut DAILY #15 05/24/22 mL) subcutaneous pen (Basaglar mL KwikPen U-100 Insulin) isosorbide mononitrate 30 mg 30 mg PO DAILY #90 tabs 08/09/22 tablet,extended release 24 hr Novolog FlexPen U-100 Insulin 100 See Rx Instructions subcut TID #15 08/15/22 unit/mL (3 mL) subcutaneous mL (insulin aspart U-100) metolazone 2.5 mg tablet 2.5 mg PO .COMPLEX 30 days #10 tabs 09/12/22 metoprolol succinate 50 mg 50 mg PO DAILY #90 tabs 09/12/22 tablet,extended release 24 hr (Toprol XL) tamsulosin 0.4 mg capsule 0.4 mg PO DAILY 90 days #90 caps 01/10/23 Allergies Allergy/AdvReac Type Severity Reaction Status Date / Time codeine [CODEINE] Allergy Unknown UNKNOWN Verified 02/26/23 12:34 lisinopril Allergy Unknown choking Uncoded 02/26/23 12:34 Review of Systems Review of Systems: All other systems are reviewed and are negative Constitutional: Reports as per HPI and Reports no additional constitutional com plaints Eyes: Reports as per HPI and Reports no additional eye complaints Reports system reviewed and no additional complaints, except as documented Cardiovascular: Reports as per HPI and Reports no additional cardiovascular complaints Respiratory: Reports as per HPI and Reports no additional respiratory complaints Gastrointestinal: Reports as per HPI and Reports no additional gastrointestinal complaints Genitourinary: Reports no additional female genitourinary complaints Musculoskeletal: Reports no additional musculoskeletal complaints Skin/Breast: Reports system reviewed and no additional complaints, except as docu Psychiatric: Reports no additional psychiatric complaints Endocrine: Reports no additional endocrine complaints Hematologic/Lymphatic: Reports no additional hematologic/lymphatic complaints Allergic/Immunologic: Reports no additional allergic/immunologic complaints Reports system reviewed and no additional complaints, except as documented and Reports Abnormal speech present [facility] Past Medical History Medical History (HFpEF) heart failure with preserved ejection fraction BPH (benign prostatic hyperplasia) CAD (coronary artery disease) CHF (congestive heart failure) CHF (congestive heart failure) CKD (chronic kidney disease) Coronary stent patent Diabetes mellitus, type 2 Diabetic nephropathy associated with type 2 diabetes mellitus Diabetic neuropathy associated with type 2 diabetes mellitus Dyslipidemia Epidermal cyst Epilepsy Hypertension Hypokalemia Left buttock abscess Neuropathy associated with endocrine disorder Obesity due to excess calories Secondary hyperparathyroidism Type 2 diabetes mellitus with hyperglycemia, with long-term current use of insulin Surgical History Hx of cardiac cath Stented coronary artery Family History Family History Father Diabetes CVD (cardiovascular disease) Mother Diabetes CVD (cardiovascular disease) Brother Diabetes Son Thyroid disease Lung disease Psoriasis HTN (hypertension) Social History Social History Household Members: Spouse and Family Housing: Apartment Do you presently have visiting nurse or other home services: No Alcohol intake: never Patient Tobacco Use Status: Former Tobacco user Smoked in Last 30 Days: No Use of substances other than those prescribed or required for medical reasons: No Advance Directives: Yes Advance Directives on File: Yes Advance Directives Date on File: 05/18/21 service: No Current occupational status: retired Physical Exam ED Vital Signs: Vital Signs - 24 hr 02/26/23 12:28 02/26/23 13:45 Temperature 98.1 F 97.8 F Pulse Rate 70 62 Respiratory Rate 16 14 Blood Pressure 136/79 144/91 H Pulse Oximetry 98 98 Oxygen Delivery Method Room Air Room Air BMI result Body Mass Index 29.0 Vital signs have been reviewed as appeared to be correct. Blood pressure normal. Heart rate normal. Respiration rate normal. Temperature normal. Oxygen saturation normal. Appearance: Alert. Oriented X3. No acute distress. Head: Normal external exam. Normocephalic. Atraumatic. No Mcarthur signs noted. No raccoon eyes noted Eyes: PERRLA. EOMI. Conjunctiva and sclera normal. Eyelids normal. ENT: TM's Normal. Pharynx normal. Uvula midline. Moist mucous membranes. No trismus noted. No drooling noted. No muffled voice noted. Neck: Normal inspection. Neck supple. FROM. No adenopathy. Thyroid Normal. No meningeal signs. No neck mass noted. CVS: Normal heart rate and rhythm. Heart sound normal. No murmurs noted. Pulses normal throughout. Respiratory: No respiratory distress. Painless inspiration. Breath sounds normal. No wheezes/rales/rhonchi noted. Chest nontender. No accessory muscle usage noted or decreased air movement noted. Abdomen: Soft and nontender. Bowel sounds normal in all 4 quadrants. No distention noted. No organomegaly noted. No visible injury noted. Back: No CVA tenderness. Full range of motion noted. Skin: Skin warm and dry. Normal skin color. Normal skin turgor. No rashes/lesions/lacerations noted. Extremities: No lower extremity edema. Extremities exhibit normal range of motion. Extremities nontender. Neuro: Oriented X 3. Cranial nerve exam: II-XII are grossly intact No motor deficit. No sensory deficit. Reflexes normal. Course Course Course Narrative: 83-year-old male came in for evaluation of chest pain and acute on chronic pain due to diabetic peripheral neuropathy in both feet, patient has a normal neuro exam with no weakness, labs are unremarkable with chronic renal insufficiency. Medications Administered Discontinued Medications Generic Name Dose Route Start Last Admin Trade Name Freq PRN Reason Stop Dose Admin Morphine Sulfate 1 mg 02/26/23 13:57 02/26/23 14:56 Morphine Sulfate 2 Mg/Ml Cartridge IVPUSH 02/26/23 13:58 Not Given ONCE ONE Protocol Medical Decision Making Differential Diagnosis Differential Diagnoses: The differential diagnosis associated with the presentation includes (ACS, CHF, peripheral neuropathy, CM, electrolyte abnormalities, severe anemia.) Lab Data MDM Lab Attestation statement: I reviewed the patient's lab results. 02/26/23 12:46 02/26/23 12:46 Labs: Lab Results 02/26/23 02/26/23 02/26/23 Range/Units 12:46 12:46 12:46 WBC 6.6 (4.8-10.8) X10*3/uL RBC 4.27 L (4.60-5.80) X10*6/uL Hgb 12.6 L (14.0-18.0) g/dl Hct 37.9 L (42.0-52.0) % MCV 88.8 (80.0-98.0) fL MCH 29.5 (27.0-33.0) pg MCHC 33.2 (31.0-36.0) g/dl RDW 14.0 (11.0-16.0) % Plt Count 255 (160-400) X10*3/uL MPV 10.2 (9.4-12.4) fL Immature Gran % (Auto) 0.3 (0.0-0.4) % Neut % (Auto) 64.0 (45-73) % Lymph % (Auto) 21.8 (20-40) % Mitchell % (Auto) 9.2 (2-11) % Eos % (Auto) 3.5 (0-4) % Baso % (Auto) 1.2 (0-2) % Lymph # (Auto) 1.4 (1.2-4.9) X10*3/uL Mitchell # (Auto) 0.6 (0.1-1.2) X10*3/uL Eos # (Auto) 0.2 (0.0-0.4) X10*3/uL Baso # (Auto) 0.1 (0.0-0.2) X10*3/uL Abs Immat Gran (auto) 0.02 (0.00-0.03) X10*3/uL Absolute Neuts (auto) 4.2 (2.0-8.3) x10*3/uL Absolute Nucleated RBC 0.000 (0.0-0.012) X10*3/uL Nucleated RBC % (auto) 0.0 (0.0-0.2) /100WBC Sodium 141 (135-145) mmol/L Potassium 3.8 (3.3-5.1) mmol/L Chloride 105 (96-108) mmol/L Carbon Dioxide 26 (22-29) mmol/L Anion Gap 14 (12-20) BUN 40 H (9-16) mg/dL Creatinine 1.46 H (0.5-1.4) mg/dL Estim Creat Clear Calc 39.1 Estimated GFR 46 Random Glucose 217 H (60-115) mg/dL Calcium 9.5 (8.4-10.2) mg/dL Total Bilirubin 0.3 (0.0-1.0) mg/dL AST 14 (5-37) U/L ALT 11 (0-40) U/L Alkaline Phosphatase 79 (39-117) U/L Troponin I High Sens 5.1 (<3.5-35.0) ng/L B-Natriuretic Peptide (<100) pg/mL Total Protein 7.8 (6.5-8.0) g/dL Albumin 4.0 (3.5-5.0) g/dL 02/26/23 02/26/23 Range/Units 12:46 15:21 WBC (4.8-10.8) X10*3/uL RBC (4.60-5.80) X10*6/uL Hgb (14.0-18.0) g/dl Hct (42.0-52.0) % MCV (80.0-98.0) fL MCH (27.0-33.0) pg MCHC (31.0-36.0) g/dl RDW (11.0-16.0) % Plt Count (160-400) X10*3/uL MPV (9.4-12.4) fL Immature Gran % (Auto) (0.0-0.4) % Neut % (Auto) (45-73) % Lymph % (Auto) (20-40) % Mitchell % (Auto) (2-11) % Eos % (Auto) (0-4) % Baso % (Auto) (0-2) % Lymph # (Auto) (1.2-4.9) X10*3/uL Mitchell # (Auto) (0.1-1.2) X10*3/uL Eos # (Auto) (0.0-0.4) X10*3/uL Baso # (Auto) (0.0-0.2) X10*3/uL Abs Immat Gran (auto) (0.00-0.03) X10*3/uL Absolute Neuts (auto) (2.0-8.3) x10*3/uL Absolute Nucleated RBC (0.0-0.012) X10*3/uL Nucleated RBC % (auto) (0.0-0.2) /100WBC Sodium (135-145) mmol/L Potassium (3.3-5.1) mmol/L Chloride (96-108) mmol/L Carbon Dioxide (22-29) mmol/L Anion Gap (12-20) BUN (9-16) mg/dL Creatinine (0.5-1.4) mg/dL Estim Creat Clear Calc Estimated GFR Random Glucose (60-115) mg/dL Calcium (8.4-10.2) mg/dL Total Bilirubin (0.0-1.0) mg/dL AST (5-37) U/L ALT (0-40) U/L Alkaline Phosphatase (39-117) U/L Troponin I High Sens 6.5 (<3.5-35.0) ng/L B-Natriuretic Peptide 54 (<100) pg/mL Total Protein (6.5-8.0) g/dL Albumin (3.5-5.0) g/dL Independent Interpretation I performed an independent interpretation of an: EKG (Junctional rhythm at 66 beats per minutes, normal axis deviation, normal intervals, no ST-T changes) and Plain X-Ray (No acute intrathoracic pathology) Radiology Impression Discussion of test interpretation with radiology: I have reviewed the radiologist's reading. (* Mild diffuse increased interstitial lung marking and peribronchial cuffing might be a small airway disease such as bronchiolitis or interstitial pneumonitis, versus interstitial lung disease versus interstitial edema. This might have been exaggerated by poor inspiration. ) Chronic Conditions Patient?s care impacted by: Diabetes (Chronic renal injury, peripheral neuropathy.) Discharge Plan Discharge Clinical Impression: Peripheral neuropathy, Chest pain Patient Disposition: Home, Self-Care Instructions: Peripheral Neuropathy (ED) Prescriptions: No Action furosemide 80 mg tablet 80 mg PO BID Qty: 180 1RF nitroglycerin 0.4 mg tablet, sublingual 0.4 mg sublingual .COMPLEX Qty: 75 3RF Rx Instructions: 0.4 mg sublingual One tab under the tongue every 5 minutes as needed for chest pain up to 3; pregabalin 75 mg capsule 75 mg PO BID Qty: 30 5RF Basaglar KwikPen U-100 Insulin 100 unit/mL (3 mL) insulin pen 28 unit subcut DAILY Qty: 15 4RF isosorbide mononitrate 30 mg tablet extended release 24 hr 30 mg PO DAILY Qty: 90 3RF insulin aspart U-100 [Novolog FlexPen U-100 Insulin] 100 unit/mL (3 mL) insulin pen See Rx Instructions subcut TID Qty: 15 4RF Rx Instructions: 8 units for breakfast, 14 units for lunch, 10 units for dinner, 5 for snack + 2 units for bg over 200. subcut 3 times a day; phenytoin sodium extended [Dilantin Extended] 100 mg Capsule 300 mg PO DAILY Qty: 30 0RF phenytoin sodium extended [Dilantin Extended] 100 mg Capsule 200 mg PO BEDTIME Qty: 30 0RF cyclobenzaprine 10 mg tablet 10 mg PO Q8H Qty: 20 0RF (DME) blood sugar diagnostic Strip See Rx Instructions Not Applicable TID Qty: 10 Rx Instructions: As directed aspirin [Adult Low Dose Aspirin] 81 mg tablet,delayed release (DR/EC) 81 mg PO DAILY rosuvastatin 40 mg tablet 40 mg PO DAILY pantoprazole 40 mg tablet,delayed release (DR/EC) 40 mg PO DAILY phenytoin sodium extended 300 mg capsule 300 mg PO BEDTIME (DME) pen needle, diabetic [BD Ultra-Fine Nicole Pen Needle] 32 gauge x 5/32 needle See Rx Instructions .ROUTE .MEDSUPPLY Qty: 150 11RF Rx Instructions: As directed five times a day spironolactone 25 mg tablet 25 mg PO DAILY Jardiance 10 mg tablet 10 mg PO QAM Qty: 30 6RF duloxetine 30 mg capsule,delayed release(DR/EC) 60 mg PO DAILY Qty: 60 6RF Rx Instructions: Use 30mg (1 cap) for 2 weeks, then increase to 60mg (2 caps) (DME) pen needle, diabetic [BD Nicole 2nd Gen Pen Needle] 32 gauge x 5/32 needle See Rx Instructions .MEDSUPPLY Qty: 200 10RF Rx Instructions: 5 times a day ibuprofen 600 mg tablet 600 mg PO TID pregabalin 100 mg capsule 100 mg PO BID metolazone 2.5 mg tablet 2.5 mg PO .COMPLEX 30 Days Qty: 10 5RF Rx Instructions: 2.5 mg orally monday/; metoprolol succinate [Toprol XL] 50 mg tablet extended release 24 hr 50 mg PO DAILY Qty: 90 3RF (DME) lancets [FreeStyle Lancets] 28 gauge misc See Rx Instructions .ROUTE TID Qty: 100 Rx Instructions: As directed tamsulosin 0.4 mg capsule 0.4 mg PO DAILY 90 Days Qty: 90 1RF Referrals: Pushpa Ruvalcaba MD [Primary Care Provider] -
[2023-02-26 15:54] LABS: Troponin-I High Sensitivity 6.5 ng/L (<3.5-35.0)
== END 2023-02-26 16:49 | disposition home or self-care (01) ==
PROVIDERS: Emergency Provider Emergency Medicine; PCP Internal Medicine
DX: R07.89 Other chest pain (principal); G62.9 Polyneuropathy, unspecified; R06.02 Shortness of breath; M79.602 Pain in left arm; M79.601 Pain in right arm; Z79.899 Other long term (current) drug therapy
CPT/HCPCS: 36415; 71046; 80053; 83880; 84484; 85025; 93005; 96374; 99284

== ENCOUNTER 2023-04-10 08:43 | Outpatient (REF) | payer MEDICARE, MEDICAID, SELFPAY ==
[2023-04-10 10:48] LABS: Estimated Average Glucose 209 mg/dL; Hemoglobin A1c % 8.9 %
[2023-04-10 10:53] LABS: Alanine Aminotransferase 15 U/L (0-40); Albumin Level 3.8 g/dL (3.5-5.0); Alkaline Phosphatase 82 U/L (39-117); Anion Gap 15 (12-20); Aspartate Amino Transferase 15 U/L (5-37); Bilirubin Total 0.3 mg/dL (0.0-1.0); Blood Urea Nitrogen 43 mg/dL (9-16); Calcium 9.4 mg/dL (8.4-10.2); Carbon Dioxide 27 mmol/L (22-29); Chloride 108 mmol/L (96-108); Cholesterol 240 mg/dL; Estimated Glomerular Filt Rate 46; Glucose Random 174 mg/dL (60-115); HDL Cholesterol 44 mg/dL; LDL Cholesterol Calculated 156 mg/dl; Potassium 4.6 mmol/L (3.3-5.1); Sodium 145 mmol/L (135-145); Total Protein 7.6 g/dL (6.5-8.0); Triglycerides 201 mg/dL
[2023-04-10 11:20] LABS: Phenytoin Dilantin 10.3 ug/mL (10.0-20.0)
[2023-04-10 11:22] LABS: Creatinine Urine 54.06 mg/dL; Microalbum/Creatinine Ratio Ur 29.5 ug/mg cr
[2023-04-10 11:23] LABS: Folate 12.4 ng/mL (> or = 4.0); Prostate Specific Antigen 2.66 ng/mL (<0.05-4.0); Thyroid Stimulating Hormone 1.71 uIU/mL (0.32-4.0); Vitamin B12 300 pg/mL (200-900); Vitamin D 25-OH Total 22.5 ng/mL (>30)
== END 2023-04-10 08:44 | disposition home or self-care (01) ==
LOC: HO.10HDL 08:43
PROVIDERS: Visit Provider Internal Medicine
DX: Z12.5 Encounter for screening for malignant neoplasm of prostate (principal); I12.9 Hypertensive chronic kidney disease with stage 1 through stage 4 chronic kidney disease, or unspecified chronic kidney disease; E11.22 Type 2 diabetes mellitus with diabetic chronic kidney disease; N18.9 Chronic kidney disease, unspecified; E11.40 Type 2 diabetes mellitus with diabetic neuropathy, unspecified; G40.109 Localization-related (focal) (partial) symptomatic epilepsy and epileptic syndromes with simple partial seizures, not intractable, without status epilepticus; Z79.899 Other long term (current) drug therapy
CPT/HCPCS: 36415; 80053; 80061; 80185; 82043; 82306; 82607; 82746; 83036; 84153; 84443

== ENCOUNTER 2023-05-17 09:15 | Outpatient (AMB) | payer MEDICARE, MEDICAID, SELFPAY ==
--- NOTE | 2023-05-17 09:16 | MHC.OFFVIS ---
Intake Vital Signs 05/17/23 09:17 Height 5 ft 6 in Weight 226 lb BMI 36.5 BP 147/67 H Blood Pressure Location Rt brachial Position Sitting Pulse 66 Intake Visit Reasons: Recurrent cyst on Right buttock Intake Note: This patient presents for an assessment for a recurrent cyst of the right buttock. Patient's daughter c/o; They had removed it but he still feels something there . Manager It Security Required: Yes Manager It Security Language: Adjunct Art History Instructor Name: Kendra Information Interpreted: non-clinical & clinical Accompanied by: Daughter Allergies codeine [CODEINE] Allergy (Unknown, Verified 05/17/23 09:17) UNKNOWN lisinopril Allergy (Unknown, Uncoded 05/17/23 09:17) choking Medication List - Last Reconciled 05/17/23 by Gennaro Calle MD aspirin (Adult Low Dose Aspirin) 81 mg PO DAILY BD Nicole 2nd Gen Pen Needle (pen needle, diabetic) 5 times a day NS blood sugar diagnostic As directed cyclobenzaprine 10 mg PO Q8H duloxetine 60 mg (2 x 30 mg) PO DAILY empagliflozin (Jardiance) 10 mg PO QAM furosemide 80 mg PO BID ibuprofen 600 mg PO TID insulin glargine (Basaglar KwikPen U-100 Insulin) 28 units (0.28 mL) subcut DAILY isosorbide mononitrate ER 30 mg PO DAILY lancets (FreeStyle Lancets) As directed metolazone 2.5 mg orally monday/; 30 days metoprolol succinate ER (Toprol XL) 50 mg PO DAILY nitroglycerin 0.4 mg sublingual One tab under the tongue every 5 minutes as needed for chest pain up to 3; Novolog FlexPen U-100 Insulin (insulin aspart U-100) 8 units for breakfast, 14 units for lunch, 10 units for dinner, 5 for snack + 2 units for bg over 200. subcut 3 times a day; NS pantoprazole 40 mg PO DAILY pen needle, diabetic (BD Ultra-Fine Nicole Pen Needle) As directed five times a day phenytoin sodium extended (Dilantin Extended) 300 mg (3 x 100 mg) PO DAILY phenytoin sodium extended (Dilantin Extended) 200 mg (2 x 100 mg) PO BEDTIME phenytoin sodium extended 300 mg PO BEDTIME pregabalin 75 mg PO BID pregabalin 100 mg PO BID rosuvastatin 40 mg PO DAILY spironolactone 25 mg PO DAILY tamsulosin 0.4 mg PO DAILY 90 days HPI Recurrent cyst on Right buttock HPI Details 83-year-old male here for a left buttock mass. He says that he has noticed this for about 2-3 weeks. He describes some discomfort but no pain or skin changes. He denies any drainage He did have an I and D of a left abscess as well about 6 months ago in the office. He has had no recurrence since then. [facility] Medical History (Updated 05/17/23 @ 09:37 by Gennaro Calle MD) (HFpEF) heart failure with preserved ejection fraction BPH (benign prostatic hyperplasia) CAD (coronary artery disease) CHF (congestive heart failure) CHF (congestive heart failure) CKD (chronic kidney disease) Coronary stent patent Diabetes mellitus, type 2 Diabetic nephropathy associated with type 2 diabetes mellitus Diabetic neuropathy associated with type 2 diabetes mellitus Dyslipidemia Epidermal cyst Epilepsy Hypertension Hypokalemia Left buttock abscess Mass of buttock Neuropathy associated with endocrine disorder Obesity due to excess calories Secondary hyperparathyroidism Type 2 diabetes mellitus with hyperglycemia, with long-term current use of insulin Surgical History Hx of cardiac cath Stented coronary artery Family History Father Diabetes CVD (cardiovascular disease) Mother Diabetes CVD (cardiovascular disease) Brother Diabetes Son Thyroid disease Lung disease Psoriasis HTN (hypertension) Social History Household Members: Spouse and Family Housing: Apartment Do you presently have visiting nurse or other home services: No Alcohol intake: never Patient Tobacco Use Status: Former Tobacco user Advance Directives Date on File: 05/18/21 service: No Current occupational status: retired Review of Systems Const Denies chills and Denies fever(s) Card Denies chest pain, Denies dyspnea and Denies dyspnea on exertion Resp Denies cough, Denies dyspnea and Denies dyspnea on exertion GI Denies hematochezia and Denies change in bowel habits Denies hematuria and Denies difficulty urinating Musc Reports abnormal gait, Reports back pain and Reports limited range of motion Neuro Reports abnormal gait, Denies focal weakness and Denies convulsions Psych Denies depression and Denies mood swings Physical Exam Vital Signs: Last Vital Signs Pulse 66 05/17/23 09:17 BP 147/67 H 05/17/23 09:17 BMI result Body Mass Index 36.5 Const Other: Frail looking and using walker the late General: comfortable and no acute distress Resp Effort & Inspection: normal respiratory effort Cardio Rate: regular rate GI Palpation (GI): Soft to palpation, not firm and nontender Back/Spine/Pelvis Other: Subcutaneous mass, vague, about 2.5 cm, near the sacrococcygeal area to the left of the midline, no significant tenderness, no fluctuance no cellulitis, no discharge Assessment & Plan Assessment & Plan (1) Mass of buttock: Code(s): R22.2 - Localized swelling, mass and lump, trunk Plan: This seems to be more of a subcutaneous mass, probably a cyst or lipoma. He describes minimal discomfort at this time. I explained to him and his daughter that to remove this may require some form of anesthesia as this is vague in appears to be deep in the subcutaneous layer. I did explain the technique of this procedure. The other option is to watch this closely. He wants to monitor this and hold off on surgery for now. I will see him again in about 3 months to re-evaluate this. He can otherwise come back to the office earlier than that if this becomes worse. Coding Level of Care Code Est Pt Level 3 (37881) Diagnoses Mass of buttock R22.2
[2023-05-17 09:17] VITALS: BP 147/67; PULSE 66; BMI 36.5
== END 2023-05-17 09:35 | disposition home or self-care (01) ==
PROVIDERS: PCP Internal Medicine; Visit Provider Surgery
DX: R22.2 Localized swelling, mass and lump, trunk (principal)
CPT/HCPCS: 99213

== ENCOUNTER → 2023-05-17 09:15 | Outpatient (BNVA) | payer MEDICARE, MEDICAID, SELFPAY | PROVIDERS: PCP Internal Medicine; Visit Provider Surgery | DX: R22.2 Localized swelling, mass and lump, trunk (principal) | CPT/HCPCS: 99212 ==

== ENCOUNTER 2023-05-22 08:06 | Outpatient (REF) | payer MEDICARE, MEDICAID, SELFPAY ==
[2023-05-22 10:39] LABS: Basophils Absolute Auto 0.1 X10*3/uL (0.0-0.2); Eosinophils Absolute Auto 0.4 X10*3/uL (0.0-0.4); Eosinophils Percent Auto 7.3 % (0-4); Hematocrit 36.9 % (42.0-52.0); Hemoglobin 11.6 g/dl (14.0-18.0); Imm Gran Abs Auto 0.02 X10*3/uL (0.00-0.03); Imm Gran Pct Auto 0.3 % (0.0-0.4); Lymphocytes Absolute Auto 1.5 X10*3/uL (1.2-4.9); Lymphocytes Percent Auto 24.7 % (20-40); MANUAL DIFF FLAG NO; Mean Corpuscular HGB Conc 31.4 g/dl (31.0-36.0); Mean Corpuscular Hemoglobin 28.3 pg (27.0-33.0); Mean Platelet Volume 11.1 fL (9.4-12.4); Monocytes Absolute Auto 0.5 X10*3/uL (0.1-1.2); Neutrophils Absolute Auto 3.4 x10*3/uL (2.0-8.3); Neutrophils Percent Auto 57.7 % (45-73); Platelet Count 254 X10*3/uL (160-400); Red Cell Distribution Width 13.6 % (11.0-16.0); White Blood Count 5.9 X10*3/uL (4.8-10.8)
[2023-05-22 10:54] LABS: Alanine Aminotransferase 10 U/L (0-40); Albumin Level 3.4 g/dL (3.5-5.0); Alkaline Phosphatase 94 U/L (39-117); Anion Gap 7 (12-20); Aspartate Amino Transferase 10 U/L (5-37); Bilirubin Total 0.3 mg/dL (0.0-1.0); Blood Urea Nitrogen 19 mg/dL (9-16); Calcium 9.1 mg/dL (8.4-10.2); Carbon Dioxide 30 mmol/L (22-29); Chloride 108 mmol/L (96-108); Estimated Glomerular Filt Rate > 60; Glucose Random 191 mg/dL (60-115); Sodium 141 mmol/L (135-145); Total Protein 7.2 g/dL (6.5-8.0)
[2023-05-22 11:07] LABS: Creatinine Urine 98.13 mg/dL; Protein/Creatinine Ratio, Ur 0.41 (<0.2); Total Protein Urine Random 40 mg/dL (<12)
== END 2023-05-22 08:07 | disposition home or self-care (01) ==
LOC: HO.10HDL 08:06
PROVIDERS: Visit Provider Internal Medicine Hypertension Specialist
DX: E11.29 Type 2 diabetes mellitus with other diabetic kidney complication (principal)
CPT/HCPCS: 36415; 80053; 84156; 85025

== ENCOUNTER 2023-07-04 10:37 | Outpatient (REF) | payer MEDICARE, MEDICAID, SELFPAY | END 2023-07-04 10:38 | disposition home or self-care (01) | LOC: HO.10HDLNP 10:37 | PROVIDERS: Visit Provider Internal Medicine | DX: M47.9 Spondylosis, unspecified (principal); M54.50 Low back pain, unspecified; N30.01 Acute cystitis with hematuria | CPT/HCPCS: 87086 ==

== ENCOUNTER 2023-08-09 12:56 | Outpatient (AMB) | payer MEDICARE, MEDICAID, SELFPAY ==
--- NOTE | 2023-08-09 13:28 | MHC.OFFVIS ---
Intake Intake Visit Reasons: 6m follow up/PVR Intake Note: Patient is Present for Follow Up Urology Medication: Tamsulosin Antibiotic Allergies: None Blood Thinners: Aspirin Pharmacy: [facility] PVR:[id number] Allergies codeine [CODEINE] Allergy (Unknown, Verified 05/17/23 09:17) UNKNOWN lisinopril Allergy (Unknown, Uncoded 05/17/23 09:17) choking HPI HPI Comments History of Present Illness Details Andres is a pleasant Guamanian-speaking male. He is a patient of . he seen for the following urologic conditions - lower urinary tract symptoms Follow-up for urinary urgency in setting of diabetes - HbA1c 8.9% On Lasix 80 mg b.i.d. Discussed elevation of feet after 04:00 o'clock in order to improve circulatory return Guamanian translation provided by qualified certified medical records coder Accompanied by his daughter Does have urgency and recommended to decrease fluid intake after 19:00 Lower urinary tract symptoms Longstanding Prior [employer] laser prostate 2021 Concomitant conditions include type 2 diabetes - insulin-dependent On diuretics Nocturia x3-4 PFSH Medical History (Updated 08/09/23 @ 14:20 by Brett Ruvalcaba MD) Mass of buttock Left buttock abscess Epidermal cyst Obesity due to excess calories CHF (congestive heart failure) Hypokalemia Diabetic nephropathy associated with type 2 diabetes mellitus CHF (congestive heart failure) Epilepsy Type 2 diabetes mellitus with hyperglycemia, with long-term current use of insulin Secondary hyperparathyroidism Diabetic neuropathy associated with type 2 diabetes mellitus CAD (coronary artery disease) (HFpEF) heart failure with preserved ejection fraction Hypertension Coronary stent patent BPH (benign prostatic hyperplasia) Dyslipidemia Neuropathy associated with endocrine disorder CKD (chronic kidney disease) Diabetes mellitus, type 2 Surgical History Stented coronary artery Hx of cardiac cath Family History Father Diabetes CVD (cardiovascular disease) Mother Diabetes CVD (cardiovascular disease) Brother Diabetes Son Thyroid disease Lung disease Psoriasis HTN (hypertension) Social History Household Members: Spouse and Family Housing: Apartment Do you presently have visiting nurse or other home services: No Alcohol intake: never Patient Tobacco Use Status: Former Tobacco user Advance Directives Date on File: 05/18/21 service: No Current occupational status: retired Review of Systems Const Denies chills and Denies fever(s) Card Reports no additional complaints and Denies syncope Resp Denies cough GI Denies abdominal pain and Denies heartburn Reports as per HPI and Denies change in libido Neuro Denies syncope Psych Denies change in libido Endo Denies change in libido Physical Exam Const General: cooperative, healthy appearing, comfortable and no acute distress Orientation/consciousness: patient oriented x3 HEENT Face and sinus: Yes normal facial exam Mouth: moist mucous membranes Neck Neck: Yes normal visual inspection, Yes full ROM and Yes trachea midline Chest Chest palpation & inspection: normal inspection of the chest Resp Effort & Inspection: normal respiratory effort, able to speak in complete sentences and no respiratory distress GI Inspection: Yes normal to inspection Back/Spine/Pelvis Cervical Spine: normal cervical lordosis Thoracic/Lumbar Spine: thoracic and lumbar spine normal to inspection Skin General skin exam: no rashes or lesions noted Neuro General: patient oriented x3, gait normal, tone normal and moves all extremities Extrem General: Yes normal to inspection and Yes capillary refill normal Office Procedures Post Void Residual Post Residual Void Post Void Residual (PVR): 462 [id number] Void Residual by ultrasound Results AMB Urinalysis, Automated UA Leukoctes 0 Geeta/uL Last Edit by Chrissy Chamberlain [facility] on 08/09/23 13:47 UA Nitrite Negative Last Edit by Chrissy Chamberlain [facility] on 08/09/23 13:47 UA Urobilinogen 0.2 mg/dL Last Edit by Chrissy Chamberlain [facility] on 08/09/23 13:47 UA Protein 0 mg/dL Last Edit by Chrissy Chamberlain [facility] on 08/09/23 13:47 UA pH 6.0 Last Edit by Chrissy Chamberlain [facility] on 08/09/23 13:47 UA Blood 0 Spencer/uL Last Edit by Chrissy Chamberlain [facility] on 08/09/23 13:47 UA Specific Phelps 1.015 Last Edit by Chrissy Chamberlain [facility] on 08/09/23 13:47 UA Ketone Negative Last Edit by Chrissy Chamberlain [facility] on 08/09/23 13:47 UA Bilirubin 0 mg/dL Last Edit by PER Mosquera on 08/09/23 13:47 UA Glucose 500 mg/dL Last Edit by PER Mosquera on 08/09/23 13:47 Results Reviewed Results Reviewed: Laboratory Last Values Urine pH (Auto) 6.0 08/09/23 13:44 Specific Phelps (Auto) 1.015 08/09/23 13:44 Urine Protein (Auto) 0 mg/dL 08/09/23 13:44 Glucose (UA)(Auto) 500 mg/dL 08/09/23 13:44 Urine Ketones (Auto) Negative 08/09/23 13:44 Urine Blood (Auto) 0 Spencer/uL 08/09/23 13:44 Urine Nitrite (Auto) Negative 08/09/23 13:44 Urine Bilirubin (Auto) 0 mg/dL 08/09/23 13:44 Urine Urobilinogen (Auto) 0.2 mg/dL 08/09/23 13:44 Leukocyte Esterase (Auto) 0 Geeta/uL 08/09/23 13:44 Assessment & Plan Assessment & Plan (1) BPH (benign prostatic hyperplasia): Code(s): N40.0 - Benign prostatic hyperplasia without lower urinary tract symptoms (2) Urinary urgency: Code(s): R39.15 - Urgency of urination Plan Six month follow-up Orders: Orders AMB Urinalysis Automated Today Z13.9 - Encounter for screening, unspecified AMB Urinalysis Dipstick Today Z13.9 - Encounter for screening, unspecified AMB Post Void Residual by ultrasound Today N40.0 - Benign prostatic hyperplasia without lower urinary tract symptoms Patient Instructions: Imaging studies, laboratory and physical exam results were discussed and reviewed in detail. No major barriers to patient understanding were identified. An opportunity to ask questions regarding the treatment plan was provided. All questions were answered. The patient expressed understanding and agreement with the above treatment plan. The patient is aware they should contact our office by phone for worsening of their current condition or the appearance of new urologic symptoms. Compliance is encouraged with any medications and followup testing that is ordered. It is a privilege to participate in the urologic care of your patient. If you have any questions or concerns regarding treatment for the above conditions, or other urologic issues, please do not hesitate to contact me. The office telephone contact is [phone]. This note is constructed using voice recognition software. While every effort has been made to ensure accuracy cognos administrator errors may have been included. Yours sincerely, Dr Brett Ruvalcaba MD, [facility] - Urology Providers of Expert, Compassionate Care for the Genitourinary System Coding Level of Care Code Est Pt Level 4 (75436) Diagnoses BPH (benign prostatic hyperplasia) N40.0 Urinary urgency R39.15 CPT Codes Post Residual Void - PVR CPT Code: 97780-Xlbe Void Residual by ultrasound ([id number])
== END 2023-08-09 14:22 | disposition home or self-care (01) ==
PROVIDERS: PCP Internal Medicine; Visit Provider Urology
DX: N40.0 Benign prostatic hyperplasia without lower urinary tract symptoms (principal); R39.15 Urgency of urination; Z13.9 Encounter for screening, unspecified
CPT/HCPCS: 99213

== ENCOUNTER → 2023-08-09 12:56 | Outpatient (BNVA) | payer MEDICARE, MEDICAID, SELFPAY | PROVIDERS: Visit Provider Urology | DX: N40.1 Benign prostatic hyperplasia with lower urinary tract symptoms (principal); R39.15 Urgency of urination | CPT/HCPCS: 51798; 81003; 99212 ==

== ENCOUNTER 2023-08-28 15:15 | Outpatient (AMB) | payer MEDICARE, MEDICAID, SELFPAY ==
--- NOTE | 2023-08-28 15:16 | A.OFFVIS_ITS ---
Intake Intake Visit Reasons: recurrent cyst right buttock, pain and sore Intake Note: This patient presents for an assessment for recurrent cyst of the right buttock, pain and soreness. Patient c/o; reports severe pain, reports inflammation, unable to sit for prolongs periods of time, reports has not been able to sleep last night or these past days due to the pain. Crating And Moving Estimator Required: Yes Crating And Moving Estimator Language: Film Or Tape Librarian Name: Yariel Information Interpreted: non-clinical & clinical Accompanied by: Other Relationship Allergies codeine [CODEINE] Allergy (Unknown, Verified 08/28/23 15:23) UNKNOWN lisinopril Allergy (Unknown, Uncoded 08/28/23 15:23) choking Medication List - Last Reconciled 08/28/23 by Gennaro Calle MD aspirin (Adult Low Dose Aspirin) 81 mg PO DAILY BD Nicole 2nd Gen Pen Needle (pen needle, diabetic) 5 times a day NS blood sugar diagnostic As directed cyclobenzaprine 10 mg PO Q8H duloxetine 60 mg (2 x 30 mg) PO DAILY empagliflozin (Jardiance) 10 mg PO QAM furosemide 80 mg PO BID ibuprofen 600 mg PO TID insulin glargine (Basaglar KwikPen U-100 Insulin) 28 units (0.28 mL) subcut DAILY isosorbide mononitrate ER 30 mg PO DAILY lancets (FreeStyle Lancets) As directed metolazone 2.5 mg orally monday/; 30 days metoprolol succinate ER (Toprol XL) 50 mg PO DAILY nitroglycerin 0.4 mg sublingual One tab under the tongue every 5 minutes as needed for chest pain up to 3; Novolog FlexPen U-100 Insulin (insulin aspart U-100) 8 units for breakfast, 14 units for lunch, 10 units for dinner, 5 for snack + 2 units for bg over 200. subcut 3 times a day; NS pantoprazole 40 mg PO DAILY pen needle, diabetic (BD Ultra-Fine Nicole Pen Needle) As directed five times a day phenytoin sodium extended (Dilantin Extended) 300 mg (3 x 100 mg) PO DAILY phenytoin sodium extended (Dilantin Extended) 200 mg (2 x 100 mg) PO BEDTIME phenytoin sodium extended 300 mg PO BEDTIME pregabalin 75 mg PO BID pregabalin 100 mg PO BID rosuvastatin 40 mg PO DAILY spironolactone 25 mg PO DAILY tamsulosin 0.4 mg PO DAILY 90 days HPI recurrent cyst right buttock, pain and sore HPI Details He has noticed a tender swelling on the perianal area on the left posteriorly near the buttock for about 3 days now. He says that this is not the same area as where he had the lump from before. he describes significant pain and denies drainage. Denies any recent trauma to the area. [facility] Medical History Mass of buttock Left buttock abscess Epidermal cyst Obesity due to excess calories CHF (congestive heart failure) Hypokalemia Diabetic nephropathy associated with type 2 diabetes mellitus CHF (congestive heart failure) Epilepsy Type 2 diabetes mellitus with hyperglycemia, with long-term current use of insulin Secondary hyperparathyroidism Diabetic neuropathy associated with type 2 diabetes mellitus CAD (coronary artery disease) (HFpEF) heart failure with preserved ejection fraction Hypertension Coronary stent patent BPH (benign prostatic hyperplasia) Dyslipidemia Neuropathy associated with endocrine disorder CKD (chronic kidney disease) Diabetes mellitus, type 2 Surgical History Stented coronary artery Hx of cardiac cath Family History Father Diabetes CVD (cardiovascular disease) Mother Diabetes CVD (cardiovascular disease) Brother Diabetes Son Thyroid disease Lung disease Psoriasis HTN (hypertension) Social History Household Members: Spouse and Family Housing: Apartment Do you presently have visiting nurse or other home services: No Alcohol intake: never Patient Tobacco Use Status: Former Tobacco user Advance Directives Date on File: 05/18/21 service: No Current occupational status: retired Review of Systems Const Denies chills and Denies fever(s) Card Denies chest pain Resp Denies cough GI Denies hematochezia Denies difficulty urinating Physical Exam Const Other: Walks with a walker, frail looking General: no acute distress Resp Effort & Inspection: normal respiratory effort Cardio Rate: regular rate GI Other: obese and protuberant but soft rectal exam shows area of tender induration about 3 x 3 cm in the posterior perianal area on the left with what appears to be a central fluctuance Office Procedures I&D Drain Details: He was in left lateral decubitus position. The right buttock was retracted away from the perianal area with tape. the area of the abscess the right posterior perianal area was prepped and draped. Lidocaine 1% was used for local anesthesia. I used a blade 11 to make a short incision on the skin overlying this fluctuant area and this was carried down until an abscess cavity was entered. Large amounts of pus was drained. I bluntly debrided the cavity with a Q-tip as well as with a hemostat. I then applied a light packing . Dressings were placed. He tolerated procedure well. There was no significant blood loss. [id number]-[id number] of Skin Abscess, complex All charges added?: Procedure code (CPT) selection complete Assessment & Plan Assessment & Plan (1) Perianal abscess: Code(s): K61.0 - Anal abscess Plan: He has what appears to be a perianal abscess. I explained to him that it may be best to proceed with I& D. I explained the technique of this procedure under local anesthesia. I reviewed the risks, benefits, and alternatives I&D was done as described and he tolerated the procedure well. I instructed him on good wound care. He can take Tylenol or ibuprofen for pain. I will prescribe him Keflex. I will see him in the office in about two weeks for wound check. Coding Level of Care Code Est Pt Level 3 (74358) Diagnoses Perianal abscess K61.0 CPT Codes I&D Drain - Drain 2: [id number] of Skin Abscess, complex ([id number])
== END 2023-08-28 16:01 | disposition home or self-care (01) ==
PROVIDERS: PCP Internal Medicine; Visit Provider Surgery
DX: K61.0 Anal abscess (principal)
CPT/HCPCS: 46050; 99213

== ENCOUNTER → 2023-08-28 15:15 | Outpatient (BNVA) | payer MEDICARE, MEDICAID, SELFPAY | PROVIDERS: PCP Internal Medicine; Visit Provider Surgery | DX: K61.0 Anal abscess (principal) | CPT/HCPCS: 46050; 99212 ==

== ENCOUNTER 2023-09-05 12:40 | Emergency (ER) | payer MEDICARE, MEDICAID, SELFPAY ==
--- NOTE | ~2023-09-05 | XR_ITS ---
EXAMINATION: XR CHEST CLINICAL INFORMATION: Chest pain COMPARISON: Chest 02/26/2023, 08/12/2020 TECHNIQUE: 2 views of the chest were obtained. FINDINGS: The lungs are clear. No focal consolidation or interstitial pulmonary edema. No pleural effusion. Heart size is normal. The cardiomediastinal silhouette is within normal limits. Calcification of the thoracic aorta is indicative of atherosclerotic disease. Multilevel degenerative changes of the thoracic spine are seen. XR/XR chest 2V IMPRESSION: No acute cardiopulmonary disease.
[2023-09-05 12:49] VITALS: BP 138/65; BP 154/71; PULSE 66; PULSE 69; RESP 14; TEMP 36.6; O2SAT 96; O2SAT 97; BMI 29.0
--- NOTE | 2023-09-05 12:51 | ECG_ITS ---
Test Reason : CHEST PAIN Blood Pressure : / mmHG Vent. Rate : 067 BPM Atrial Rate : 000 BPM P-R Int : 000 ms QRS Dur : 094 ms QT Int : 426 ms P-R-T Axes : 000 010 065 degrees QTc Int : 450 ms Normal sinus rhythm with 1st degree A-V block Nonspecific T wave abnormality Abnormal ECG When compared with ECG of 26-FEB-2023 12:54, Referred By: Shantal Curry Electronically Signed By:TAVARES FRIED MD
--- NOTE | 2023-09-05 13:50 | ED_ITS ---
HPI - Chest Pain General Chief Complaint: Chest Pain Stated Complaint: CP,TOOK OWN 3 NITRO,FEELS BETTER PER EMS Time Seen by Provider: 09/05/23 13:33 Source: patient, family ( and son) and EMS Mode of arrival: EMS Limitations: no limitations History of Present Illness HPI narrative: Patient comes to the emergency room via ambulance. Approximately 2 hours ago, patient experienced chest pain while he was [place]. Patient's gave him 3 tablets of nitroglycerin. Then, EMS arrived who gave the patient a full-dose aspirin. Family states that the patient has history of coronary stents that were placed about a year ago in [facility]. Patient states that by the time that he arrived to the emergency room, he was pain free. At this time, patient states that he feels well and is asymptomatic. The family reports that the patient has been having shortness of breath with exertion and going up the stairs for weeks to months. Also, chronic lower extremity edema for several months. Patient is supposed to use CPAP at night for obstructive sleep apnea but patient gets anxiety with the mask and never uses it. Related Data Home Medications Medication Instructions Recorded Confirmed aspirin 81 mg tablet,delayed 81 mg PO DAILY 08/12/20 08/28/23 release (Adult Low Dose Aspirin) pantoprazole 40 mg tablet,delayed 40 mg PO DAILY 08/12/20 08/28/23 release rosuvastatin 40 mg tablet 40 mg PO DAILY 08/12/20 08/28/23 blood sugar diagnostic #10 ea 09/15/20 08/28/23 phenytoin sodium extended 300 mg 300 mg PO BEDTIME 02/01/22 08/28/23 capsule spironolactone 25 mg tablet 25 mg PO DAILY 04/19/22 08/28/23 ibuprofen 600 mg tablet 600 mg PO TID 05/04/22 08/28/23 pregabalin 100 mg capsule 100 mg PO BID 05/04/22 08/28/23 lancets 28 gauge (FreeStyle #100 ea 07/20/22 08/28/23 Lancets) Previous Rx's Medication Instructions Recorded furosemide 80 mg tablet 80 mg PO BID #180 tabs 12/29/20 nitroglycerin 0.4 mg sublingual 0.4 mg sublingual .COMPLEX #75 tabs 02/19/21 tablet phenytoin sodium extended 100 mg 200 mg (2 x 100 mg) PO BEDTIME #30 05/19/21 capsule (Dilantin Extended) caps phenytoin sodium extended 100 mg 300 mg (3 x 100 mg) PO DAILY #30 05/19/21 capsule (Dilantin Extended) caps pregabalin 75 mg capsule 75 mg PO BID #30 caps 08/30/21 cyclobenzaprine 10 mg tablet 10 mg PO Q8H #20 tabs 10/06/21 pen needle, diabetic 32 gauge x #150 ea 02/15/22 (BD Ultra-Fine Nicole Pen Needle) BD Nicole 2nd Gen Pen Needle 32 #200 ea 04/19/22 gauge x (pen needle, diabetic) duloxetine 30 mg capsule,delayed 60 mg (2 x 30 mg) PO DAILY #60 caps 04/19/22 release empagliflozin 10 mg tablet 10 mg PO QAM #30 tabs 04/19/22 (Jardiance) insulin glargine 100 unit/mL (3 28 unit (0.28 mL) subcut DAILY #15 05/24/22 mL) subcutaneous pen (Basaglar mL KwikPen U-100 Insulin) Novolog FlexPen U-100 Insulin 100 See Rx Instructions subcut TID #15 08/15/22 unit/mL (3 mL) subcutaneous mL (insulin aspart U-100) metoprolol succinate 50 mg 50 mg PO DAILY #90 tabs 09/12/22 tablet,extended release 24 hr (Toprol XL) tamsulosin 0.4 mg capsule 0.4 mg PO DAILY 90 days #90 caps 01/10/23 metolazone 2.5 mg tablet 2.5 mg PO .COMPLEX 30 days #10 tabs 03/16/23 isosorbide mononitrate 30 mg 30 mg PO DAILY #90 tabs 08/16/23 tablet,extended release 24 hr cephalexin 500 mg tablet 500 mg PO TID #15 tabs 08/28/23 Allergies Allergy/AdvReac Type Severity Reaction Status Date / Time codeine [CODEINE] Allergy Unknown UNKNOWN Verified 08/28/23 15:23 lisinopril Allergy Unknown choking Uncoded 08/28/23 15:23 Review of Systems 2 Review of Systems: Constitutional : No Weight loss, No Fever, No Chills, No Night Sweats, No Fatigue, No Malaise ENT/Mouth : No Hearing loss, No Ear Pain, No Nasal Congestion, No Sinus Pain, No Hoarseness, No sore throat, No Rhinorrhea, No Swallowing Difficulty Eyes: No Eye Pain, No Swelling, No Redness, No Foreign Body, No Discharge, No Vision Changes Cardiovascular : Complaining of chest pain that resolved after nitroglycerin aspirin, chronic shortness of breath with exertion and lying flat Respiratory : No Cough, No Sputum, No Wheezing, No Smoke Exposure, No Dyspnea Gastrointestinal : No Nausea, No Vomiting, No Diarrhea, No Constipation, No abdominal Pain, No Hematochezia, No Melena Genitourinary : no irregular bleeding, No Dysuria, No Urinary Frequency, No Hematuria, No Urinary Incontinence, No Urgency, No Flank Pain, No Urinary Flow Changes, No Hesitancy Musculoskeletal : No joint pain, No Myalgias, No Joint Swelling Skin : No Skin Lesions, No rash Neuro : No Weakness, No Numbness, No Paresthesias, No Loss of Consciousness, No Dizziness, No Headache Psych : No Anxiety/Panic, No Depression, No SI/HI/AH/VH, No Social Issues, Heme/Lymph: No Bruising, No Bleeding,No Lymphadenopathy Endocrine : No Polyuria, No Polydipsia, No Temperature Intolerance PMF Past Medical History Medical History Mass of buttock Left buttock abscess Epidermal cyst Obesity due to excess calories CHF (congestive heart failure) Hypokalemia Diabetic nephropathy associated with type 2 diabetes mellitus CHF (congestive heart failure) Epilepsy Type 2 diabetes mellitus with hyperglycemia, with long-term current use of insulin Secondary hyperparathyroidism Diabetic neuropathy associated with type 2 diabetes mellitus CAD (coronary artery disease) (HFpEF) heart failure with preserved ejection fraction Hypertension Coronary stent patent BPH (benign prostatic hyperplasia) Dyslipidemia Neuropathy associated with endocrine disorder CKD (chronic kidney disease) Diabetes mellitus, type 2 Surgical History Stented coronary artery Hx of cardiac cath Family History Family History Father Diabetes CVD (cardiovascular disease) Mother Diabetes CVD (cardiovascular disease) Brother Diabetes Son Thyroid disease Lung disease Psoriasis HTN (hypertension) Social History Social History Household Members: Spouse and Family Housing: Apartment Do you presently have visiting nurse or other home services: No Alcohol intake: never Patient Tobacco Use Status: Former Tobacco user Advance Directives: Yes Advance Directives on File: Yes Advance Directives Date on File: 05/18/21 service: No Current occupational status: retired Physical Exam 2 Vital Signs: Vital Signs: Last Vital Signs Temp 97.8 F 09/05/23 12:49 Pulse 66 09/05/23 12:49 Resp 14 09/05/23 12:49 BP 138/65 09/05/23 12:49 Pulse Ox 97 09/05/23 12:49 BMI result Body Mass Index 29.0 Const: Other: Appearance: Alert. Oriented X3. No acute distress. Eyes: Pupils equal, round and reactive to light. ENT: Pharynx normal. Neck: Normal inspection. Neck supple. No lymph nodes noted. No crepitus CVS: Normal heart rate and rhythm. Pulses normal. Normal S1 and S2 Respiratory: No respiratory distress. Breath sounds normal. No Wheezing. No rales Abdomen: Soft and nontender. No rigidity. No distention. Skin: Skin warm and dry. Normal skin color. Normal skin turgor. Extremities: +2 pitting edema bilaterally No Lacerations. No Rash Neuro: Oriented X 3. No motor deficit. No sensory deficit. Moving all extremities. No slurred speech. CN 2 through 12 grossly intact Psych: calm, cooperative, normal affectz Course Course Course Narrative: -patient already had 3 doses of sublingual nitroglycerin given by the patient's , full-dose aspirin given by EMS -since patient arrived to the emergency room, patient has been asymptomatic -patient was ambulated in the emergency room, patient did not have any oxygen desaturations, 95% and above on room air Medical Decision Making Medical Decision Making MDM Narrative: -my interpretation of labs: Hematology and chemistry at baseline, troponin x2 negative -my interpretation of the EKG: Sinus rhythm, heart rate 67, no ST segment depression elevation, no T-wave inversion, QTC 450 -patient remains feeling well, no chest pain, asymptomatic -patient was ambulated around the emergency room, patient's oxygen saturation remained above 95% Differential Diagnosis Differential Diagnoses: The differential diagnosis associated with the presentation includes (ACS, CHF, GERD, anxiety, costochondritis) Admission/Observation Consideration of admission/observation: Escalation of care including admission/observation considered (Given the patient's presentation and history, patient was considered on arrival) Lab Data MDM Lab Attestation statement: I reviewed the patient's lab results. 09/05/23 13:52 09/05/23 13:52 Labs: Lab Results 09/05/23 09/05/23 09/05/23 Range/Units 13:52 14:05 18:31 WBC 6.0 (4.8-10.8) X10*3/uL RBC 4.14 L (4.60-5.80) X10*6/uL Hgb 11.9 L (14.0-18.0) g/dl Hct 36.5 L (42.0-52.0) % MCV 88.2 (80.0-98.0) fL MCH 28.7 (27.0-33.0) pg MCHC 32.6 (31.0-36.0) g/dl RDW 15.1 (11.0-16.0) % Plt Count 256 (160-400) X10*3/uL MPV 10.7 (9.4-12.4) fL Immature Gran % (Auto) 0.3 (0.0-0.4) % Neut % (Auto) 55.4 (45-73) % Lymph % (Auto) 28.4 (20-40) % [place] % (Auto) 9.9 (2-11) % Eos % (Auto) 5.0 H (0-4) % Baso % (Auto) 1.0 (0-2) % Lymph # (Auto) 1.7 (1.2-4.9) X10*3/uL [place] # (Auto) 0.6 (0.1-1.2) X10*3/uL Eos # (Auto) 0.3 (0.0-0.4) X10*3/uL Baso # (Auto) 0.1 (0.0-0.2) X10*3/uL Abs Immat Gran (auto) 0.02 (0.00-0.03) X10*3/uL Absolute Neuts (auto) 3.3 (2.0-8.3) x10*3/uL Absolute Nucleated RBC 0.000 (0.0-0.012) X10*3/uL Nucleated RBC % (auto) 0.0 (0.0-0.2) /100WBC PT 12.1 (11.1-13.3) SEC INR 1.0 (0.9-1.1) APTT 31.0 (26.0-36.4) SEC Sodium 143 (135-145) mmol/L Potassium 4.1 (3.3-5.1) mmol/L Chloride 109 H (96-108) mmol/L Carbon Dioxide 27 (22-29) mmol/L Anion Gap 11 L (12-20) BUN 31 H (9-16) mg/dL Creatinine 1.26 (0.5-1.4) mg/dL Estim Creat Clear Calc 57.7 Estimated GFR 55 Random Glucose 178 H (60-115) mg/dL Calcium 9.0 (8.4-10.2) mg/dL Magnesium 2.4 (1.6-2.6) mg/dL Total Bilirubin 0.2 (0.0-1.0) mg/dL AST 13 (5-37) U/L ALT 10 (0-40) U/L Alkaline Phosphatase 86 (39-117) U/L Troponin I High Sens < 2.7 D < 2.7 (<3.5-35.0) ng/L B-Natriuretic Peptide 39 (<100) pg/mL Total Protein 7.3 (6.5-8.0) g/dL Albumin 3.4 L (3.5-5.0) g/dL Urine Color Yellow Urine Appearance Clear Urine pH 5.5 (5.0-9.0) Ur Specific [place] 1.015 (1.005-1.025) Urine Protein Negative (Neg-Trace) mg/dL Urine Glucose (UA) >=1000 H (Negative) mg/dL Urine Ketones Negative (Negative) mg/dL Urine Blood Negative (Negative) Urine Nitrite Negative (Negative) Ur Leukocyte Esterase Negative (Negative) Urine RBC 0-2 (0-2) /HPF Urine WBC 0-5 (0-5) /HPF Ur Squamous Epith Cells 0-2 (0-2) /HPF Urine Bacteria None Seen (None Seen) Hyaline Casts 0-2 (0-2) /LPF Influenza Type A (PCR) NEGATIVE (Negative) Influenza Type B (PCR) NEGATIVE (Negative) RSV RNA Qual (PCR) NEGATIVE (Negative) SARS-CoV-2 RNA (RT-PCR) NEGATIVE (Negative) Independent Interpretation I performed an independent interpretation of an: Plain X-Ray Radiology Impression Discussion of test interpretation with radiology: I have reviewed the radiologist's reading. Radiologist Impression: FINDINGS: The lungs are clear. No focal consolidation or interstitial pulmonary edema. No pleural effusion. Heart size is normal. The cardiomediastinal silhouette is within normal limits. Calcification of the thoracic aorta is indicative of atherosclerotic disease. Multilevel degenerative changes of the thoracic spine are seen. XR/XR chest 2V IMPRESSION: No acute cardiopulmonary disease. Independent Historian Clinical information obtained from an independent historian. History obtained from or confirmed by: Spouse and Other (Patient's son) Critical Care Time Critical Care Time Critical Care Time: Yes Total Critical Care Time: 60 Attestation: I have personally provided critical care time. Time includes review of lab data, radiology results, discussion with consultants, and monitoring for potential decompensation. Intervention performed as documented. Discharge Plan Discharge Clinical Impression: Atypical chest pain Patient Disposition: Home, Self-Care Instructions: Chest Pain (ED) Additional Instructions: Please follow-up with your primary care physician tomorrow. If you have any worsening or new symptoms, please return to the emergency room or call 911 Prescriptions: No Action furosemide 80 mg tablet 80 mg PO BID Qty: 180 1RF nitroglycerin 0.4 mg tablet, sublingual 0.4 mg sublingual .COMPLEX Qty: 75 3RF Rx Instructions: 0.4 mg sublingual One tab under the tongue every 5 minutes as needed for chest pain up to 3; pregabalin 75 mg capsule 75 mg PO BID Qty: 30 5RF Basaglar KwikPen U-100 Insulin 100 unit/mL (3 mL) insulin pen 28 unit subcut DAILY Qty: 15 4RF insulin aspart U-100 [Novolog FlexPen U-100 Insulin] 100 unit/mL (3 mL) insulin pen See Rx Instructions subcut TID Qty: 15 4RF Rx Instructions: 8 units for breakfast, 14 units for lunch, 10 units for dinner, 5 for snack + 2 units for bg over 200. subcut 3 times a day; metolazone 2.5 mg tablet 2.5 mg PO .COMPLEX 30 Days Qty: 10 5RF Rx Instructions: 2.5 mg orally monday/; isosorbide mononitrate 30 mg tablet extended release 24 hr 30 mg PO DAILY Qty: 90 3RF phenytoin sodium extended [Dilantin Extended] 100 mg Capsule 300 mg PO DAILY Qty: 30 0RF phenytoin sodium extended [Dilantin Extended] 100 mg Capsule 200 mg PO BEDTIME Qty: 30 0RF cyclobenzaprine 10 mg tablet 10 mg PO Q8H Qty: 20 0RF (DME) blood sugar diagnostic Strip See Rx Instructions Not Applicable TID Qty: 10 Rx Instructions: As directed aspirin [Adult Low Dose Aspirin] 81 mg tablet,delayed release (DR/EC) 81 mg PO DAILY rosuvastatin 40 mg tablet 40 mg PO DAILY pantoprazole 40 mg tablet,delayed release (DR/EC) 40 mg PO DAILY phenytoin sodium extended 300 mg capsule 300 mg PO BEDTIME (DME) pen needle, diabetic [BD Ultra-Fine Nicole Pen Needle] 32 gauge x 5/32 needle See Rx Instructions .ROUTE .MEDSUPPLY Qty: 150 11RF Rx Instructions: As directed five times a day spironolactone 25 mg tablet 25 mg PO DAILY Jardiance 10 mg tablet 10 mg PO QAM Qty: 30 6RF duloxetine 30 mg capsule,delayed release(DR/EC) 60 mg PO DAILY Qty: 60 6RF Rx Instructions: Use 30mg (1 cap) for 2 weeks, then increase to 60mg (2 caps) (DME) pen needle, diabetic [BD Nicole 2nd Gen Pen Needle] 32 gauge x 5/32 needle See Rx Instructions .MEDSUPPLY Qty: 200 10RF Rx Instructions: 5 times a day ibuprofen 600 mg tablet 600 mg PO TID pregabalin 100 mg capsule 100 mg PO BID metoprolol succinate [Toprol XL] 50 mg tablet extended release 24 hr 50 mg PO DAILY Qty: 90 3RF (DME) lancets [FreeStyle Lancets] 28 gauge misc See Rx Instructions .ROUTE TID Qty: 100 Rx Instructions: As directed tamsulosin 0.4 mg capsule 0.4 mg PO DAILY 90 Days Qty: 90 1RF cephalexin 500 mg tablet 500 mg PO TID Qty: 15 0RF
[2023-09-05 14:02] LABS: MANUAL DIFF FLAG NO
[2023-09-05 14:05] LABS: Basophils Absolute Auto 0.1 X10*3/uL (0.0-0.2); Eosinophils Absolute Auto 0.3 X10*3/uL (0.0-0.4); Hematocrit 36.5 % (42.0-52.0); Hemoglobin 11.9 g/dl (14.0-18.0); Imm Gran Abs Auto 0.02 X10*3/uL (0.00-0.03); Imm Gran Pct Auto 0.3 % (0.0-0.4); Lymphocytes Absolute Auto 1.7 X10*3/uL (1.2-4.9); Lymphocytes Percent Auto 28.4 % (20-40); Mean Corpuscular HGB Conc 32.6 g/dl (31.0-36.0); Mean Corpuscular Hemoglobin 28.7 pg (27.0-33.0); Mean Corpuscular Volume 88.2 fL (80.0-98.0); Mean Platelet Volume 10.7 fL (9.4-12.4); Monocytes Absolute Auto 0.6 X10*3/uL (0.1-1.2); Monocytes Percent Auto 9.9 % (2-11); Neutrophils Absolute Auto 3.3 x10*3/uL (2.0-8.3); Neutrophils Percent Auto 55.4 % (45-73); Platelet Count 256 X10*3/uL (160-400); Red Blood Count 4.14 X10*6/uL (4.60-5.80); Red Cell Distribution Width 15.1 % (11.0-16.0)
[2023-09-05 14:12] LABS: Prothrombin Time 12.1 SEC (11.1-13.3)
[2023-09-05 14:14] LABS: Appearance Urine Clear; Color Urine Yellow; Glucose Urine UA >=1000 mg/dL (Negative); Leukocyte Esterase Urine Negative (Negative); Nitrite Urine Negative (Negative); PH 5.5 (5.0-9.0); Specific Gravity - Urine 1.015 (1.005-1.025); UMIC TRIGGER UACC YES; Urine Blood Negative (Negative); Urine Ketones Negative (Negative); Urine Protein Negative (Neg-Trace)
[2023-09-05 14:18] LABS: Bacteria Urine None Seen (None Seen); Hyaline Casts Urine 0-2 /LPF (0-2); RBC Urine 0-2 /HPF (0-2); Squamous Epithelial Cell Urine 0-2 /HPF (0-2); WBC Urine 0-5 /HPF (0-5)
[2023-09-05 14:23] LABS: B Type Natriuretic Peptide 39 pg/mL (<100)
[2023-09-05 14:27] LABS: Alanine Aminotransferase 10 U/L (0-40); Albumin Level 3.4 g/dL (3.5-5.0); Alkaline Phosphatase 86 U/L (39-117); Anion Gap 11 (12-20); Aspartate Amino Transferase 13 U/L (5-37); Blood Urea Nitrogen 31 mg/dL (9-16); Carbon Dioxide 27 mmol/L (22-29); Chloride 109 mmol/L (96-108); Creatinine Clr Calc Pharmacy 57.7; Estimated Glomerular Filt Rate 55; Glucose Random 178 mg/dL (60-115); Magnesium 2.4 mg/dL (1.6-2.6); Potassium 4.1 mmol/L (3.3-5.1); Sodium 143 mmol/L (135-145); Total Protein 7.3 g/dL (6.5-8.0)
[2023-09-05 14:29] LABS: Troponin-I High Sensitivity < 2.7 ng/L (<3.5-35.0)
[2023-09-05 14:33] LABS: Bilirubin Total 0.2 mg/dL (0.0-1.0)
[2023-09-05 14:40] LABS: Influenza A PCR NEGATIVE (Negative); Influenza B PCR NEGATIVE (Negative); Resp Syncy Virus RNA Qual PCR NEGATIVE (Negative); SARS COV2 PCR INHOUSE NEGATIVE (Negative)
[2023-09-05 19:01] LABS: Troponin-I High Sensitivity < 2.7 ng/L (<3.5-35.0)
== END 2023-09-05 19:27 | disposition home or self-care (01) ==
PROVIDERS: Physician Assistant Medical; Emergency Provider Emergency Medicine
DX: R07.89 Other chest pain (principal); R06.02 Shortness of breath; R60.0 Localized edema; E11.22 Type 2 diabetes mellitus with diabetic chronic kidney disease; I13.0 Hypertensive heart and chronic kidney disease with heart failure and stage 1 through stage 4 chronic kidney disease, or unspecified chronic kidney disease; N18.9 Chronic kidney disease, unspecified; I50.30 Unspecified diastolic (congestive) heart failure; E78.5 Hyperlipidemia, unspecified; N25.81 Secondary hyperparathyroidism of renal origin; Z87.891 Personal history of nicotine dependence; Z95.5 Presence of coronary angioplasty implant and graft; Z79.82 Long term (current) use of aspirin; Z79.02 Long term (current) use of antithrombotics/antiplatelets; Z79.4 Long term (current) use of insulin; Z79.899 Other long term (current) drug therapy; Z20.822 Contact with and (suspected) exposure to COVID-19; Z20.828 Contact with and (suspected) exposure to other viral communicable diseases
CPT/HCPCS: 0241U; 36415; 71046; 80053; 81001; 83735; 83880; 84484; 85025; 85610; 85730; 93005; 99283; 99284

== ENCOUNTER 2023-09-11 15:34 | Outpatient (AMB) | payer MEDICARE, MEDICAID, SELFPAY ==
--- NOTE | 2023-09-11 15:35 | A.OFFVIS_ITS ---
Intake Vital Signs 09/11/23 15:36 Height 5 ft 6 in Weight 221 lb 5.506 oz BMI 35.7 Intake Visit Reasons: 2wk f/u cyst right buttock Intake Note: This patient presents for a two week follow-up assessment for right buttock cyst. Patient c/o; reports bothersome and pain. 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 According to the , he seems to be doing well although describes some pain on the area. [facility] Medical History Mass of buttock Left buttock abscess Epidermal cyst Obesity due to excess calories CHF (congestive heart failure) Hypokalemia Diabetic nephropathy associated with type 2 diabetes mellitus CHF (congestive heart failure) Epilepsy Type 2 diabetes mellitus with hyperglycemia, with long-term current use of insulin Secondary hyperparathyroidism Diabetic neuropathy associated with type 2 diabetes mellitus CAD (coronary artery disease) (HFpEF) heart failure with preserved ejection fraction Hypertension Coronary stent patent BPH (benign prostatic hyperplasia) Dyslipidemia Neuropathy associated with endocrine disorder CKD (chronic kidney disease) Diabetes mellitus, type 2 Surgical History Stented coronary artery Hx of cardiac cath Family History Father Diabetes CVD (cardiovascular disease) Mother Diabetes CVD (cardiovascular disease) Brother Diabetes Son Thyroid disease Lung disease Psoriasis HTN (hypertension) Social History Household Members: Spouse and Family Housing: Apartment Do you presently have visiting nurse or other home services: No Alcohol intake: never Patient Tobacco Use Status: Former Tobacco user Advance Directives Date on File: 05/18/21 service: No Current occupational status: retired Review of Systems Const Denies chills and Denies fever(s) Card Denies chest pain GI Denies abdominal pain Physical Exam Vital Signs: BMI result Body Mass Index 35.7 Const Other: frail looking, using a walker Resp Effort & Inspection: normal respiratory effort Back/Spine/Pelvis Other: I&D site on the left buttock near the anus posteriorly is dry, mild residual induration, no fluctuance, wound still open but otherwise granulating well Assessment & Plan Assessment & Plan (1) Left buttock abscess: Code(s): L02.31 - Cutaneous abscess of buttock Plan: status post I& D. He is doing well. The I&D site is open but is clean and has minimal residual induration I explained to the that times these abscess can recur. He can be brought to the office for follow-up down the line if this happens. Coding Level of Care Code Global (39848) Diagnoses Left buttock abscess L02.31
[2023-09-11 15:36] VITALS: BMI 35.7
== END 2023-09-11 16:00 | disposition home or self-care (01) ==
PROVIDERS: PCP Internal Medicine; Visit Provider Surgery
DX: L02.31 Cutaneous abscess of buttock (principal)
CPT/HCPCS: 99024

== ENCOUNTER → 2023-09-11 15:34 | Outpatient (BNVA) | payer MEDICARE, MEDICAID, SELFPAY | PROVIDERS: PCP Internal Medicine; Visit Provider Surgery ==

== ENCOUNTER 2023-10-02 14:40 | Outpatient (AMB) | payer MEDICARE, MEDICAID, SELFPAY ==
[2023-10-02 15:16] VITALS: BP 134/62; PULSE 69; BMI 35.9
--- NOTE | 2023-10-02 15:16 | MHC.OFFVIS ---
Intake Vital Signs 10/02/23 15:16 Height 5 ft 6 in Weight 222 lb 10.67 oz BMI 35.9 BP 134/62 Blood Pressure Location Rt brachial Position Sitting Pulse 69 Pulse Source Pulse Oximeter Intake Visit Reasons: F/U Load Dispatcher Required: Yes Load Dispatcher Language: [employer] Supervisor Name: aniket Table Games Supervisor: Table Games Supervisor Present Allergies codeine [CODEINE] Allergy (Unknown, Verified 10/02/23 15:19) UNKNOWN lisinopril Allergy (Unknown, Uncoded 09/11/23 15:49) choking Medication List - Last Reconciled 10/02/23 by BEATRICE Easton aspirin (Adult Low Dose Aspirin) 81 mg PO DAILY BD Nicole 2nd Gen Pen Needle (pen needle, diabetic) 5 times a day NS blood sugar diagnostic As directed cyclobenzaprine 10 mg PO Q8H empagliflozin (Jardiance) 10 mg PO QAM furosemide 80 mg PO BID ibuprofen 600 mg PO TID insulin glargine (Basaglar KwikPen U-100 Insulin) 28 units (0.28 mL) subcut DAILY isosorbide mononitrate ER 30 mg PO DAILY lancets (FreeStyle Lancets) As directed metolazone 2.5 mg orally monday/; 30 days metoprolol succinate ER (Toprol XL) 50 mg PO DAILY nitroglycerin 0.4 mg sublingual One tab under the tongue every 5 minutes as needed for chest pain up to 3; Novolog FlexPen U-100 Insulin (insulin aspart U-100) 8 units for breakfast, 14 units for lunch, 10 units for dinner, 5 for snack + 2 units for bg over 200. subcut 3 times a day; NS pantoprazole 40 mg PO DAILY pen needle, diabetic (BD Ultra-Fine Nicole Pen Needle) As directed five times a day phenytoin sodium extended (Dilantin Extended) 300 mg (3 x 100 mg) PO DAILY phenytoin sodium extended 300 mg PO BEDTIME pregabalin 100 mg PO BID rosuvastatin 40 mg PO DAILY spironolactone 25 mg PO DAILY tamsulosin 0.4 mg PO DAILY 90 days HPI F/U HPI Details Andres is an 83-year-old male with past medical history of hypertension, hyperlipidemia, diabetes, coronary artery disease, lad stent 2018, residual RCA and distal left circumflex stenosis, heart failure with preserved EF who was recently seen in the emergency room for atypical chest discomfort. He ruled out for ACS. Today he reports that he has not had any recurrent chest discomfort since that ER visit. He states that episode [place] He did take 3 nitroglycerin with relief of his discomfort. Today he states he may have eaten something that cause the discomfort. He has some shortness of breath with activity which is not new. No palpitations, presyncope, syncope, falls. He ambulates with a walker. No PND, orthopnea. He has chronic lower leg edema which is his primary concern at this visit. Certified bulk tank car unloader used. Daughter is present. FORMERLY [facility] Medical History Mass of buttock Left buttock abscess Epidermal cyst Obesity due to excess calories CHF (congestive heart failure) Hypokalemia Diabetic nephropathy associated with type 2 diabetes mellitus CHF (congestive heart failure) Epilepsy Type 2 diabetes mellitus with hyperglycemia, with long-term current use of insulin Secondary hyperparathyroidism Diabetic neuropathy associated with type 2 diabetes mellitus CAD (coronary artery disease) (HFpEF) heart failure with preserved ejection fraction Hypertension Coronary stent patent BPH (benign prostatic hyperplasia) Dyslipidemia Neuropathy associated with endocrine disorder CKD (chronic kidney disease) Diabetes mellitus, type 2 Surgical History Stented coronary artery Hx of cardiac cath Family History Father Diabetes CVD (cardiovascular disease) Mother Diabetes CVD (cardiovascular disease) Brother Diabetes Son Thyroid disease Lung disease Psoriasis HTN (hypertension) Social History Household Members: Spouse and Family Housing: Apartment Do you presently have visiting nurse or other home services: No Alcohol intake: never Patient Tobacco Use Status: Former Tobacco user Advance Directives Date on File: 05/18/21 service: No Current occupational status: retired Review of Systems Const All systems reviewed & are unremarkable except as noted in HPI and below ENT Denies dizziness Card Reports chest pain (only on day he went to ER), Denies chest pain at rest, Denies chest pain with activity, Denies rapid heart rate, Denies pedal edema, Denies edema, Reports leg edema, Denies lightheadedness, Denies palpitations, Denies dyspnea, Denies dyspnea on exertion and Denies orthopnea Resp Denies cough, Denies dyspnea and Denies dyspnea on exertion GI Denies hematochezia and Denies change in stool character Musc Details: ambulates with walker Denies abnormal gait, Reports limited range of motion, Denies muscle cramps, Denies muscle weakness, Denies numbness, Denies radiating pain into limb, Denies stiffness and Denies tingling Neuro Denies abnormal gait, Denies dizziness, Denies numbness and Denies tingling Endo Denies palpitations Physical Exam Vital Signs: Last Vital Signs Pulse 69 10/02/23 15:16 BP 134/62 10/02/23 15:16 BMI result Body Mass Index 35.9 Const General: cooperative, healthy appearing, comfortable and no acute distress Orientation/consciousness: patient oriented x3 Neck Neck: Yes normal visual inspection Resp Effort & Inspection: normal respiratory effort Auscultation: clear to auscultation bilaterally, no rales, no rhonchi and no wheezes Cardio Jugular venous distension: no JVD Rate: regular rate Rhythm: regular rhythm Heart sounds: S1 normal heart sound present, S2 normal heart sound present, no murmurs and no rubs Skin General skin exam: no rashes or lesions noted Neuro General: patient oriented x3 Extrem Other: mildly pitting edema of lower legs Psych Appearance: grossly normal Mental Status: mental status grossly normal Speech and movement: Normal speech and movement present Assessment & Plan Assessment & Plan (1) Chest discomfort: Code(s): R07.89 - Other chest pain Plan: ER visit last month for chest discomfort. Relieved with 3 nitroglycerin prior to ER arrival. He ruled out for ACS. No recurrent discomfort since that time. He has a known history of CAD with LAD stent 2018 and residual left circumflex and RCA stenosis. He was sitting when his discomfort started. He has not been having any exertional symptoms. He tells me today that he may have eaten something that upset his system that day. Signs and symptoms of angina reviewed with him. Instructed to notify this office if he has any recurrent symptoms. If he does then a stress test will be ordered. Emergency care if needed for symptoms not relieved by nitroglycerin or rest. (2) CAD (coronary artery disease): Code(s): I25.10 - Atherosclerotic heart disease of [place] coronary artery without angina pectoris Plan: As above. EKG from 09/05/2023 reviewed showing sinus rhythm, first-degree AV block, with no acute ST or T-wave abnormalities. Continue management for stable CAD with aspirin indefinitely. Continue metoprolol and isosorbide. Continue rosuvastatin with ideal LDL goal less than 70. Labs done on 04/10/2023 showed LDL 156. Unclear if patient was noncompliant with med at that time. Will have him repeat lipid profile in the near future, test ordered. Patient informed. Ongoing risk factor modification. Blood pressure currently well controlled. (3) Stented coronary artery: Code(s): Z95.5 - Presence of coronary angioplasty implant and graft Plan: LAD stent 2018 (4) (HFpEF) heart failure with preserved ejection fraction: Code(s): I50.30 - Unspecified diastolic (congestive) heart failure Plan: History of heart failure with preserved EF. Last echo 06/08/2022 showing EF 55-60%, moderate septal asymmetric hypertrophy, moderate mitral annular calcification. On exam today he does not appear fluid overloaded. He does have issues with chronic lower leg edema. He continues on Lasix 80 mg b.i.d.. Labs done 09/05/2023 shows creatinine 1.26, BNP 39. I gave him a pair of compression stockings from our office stock. Instructed on low-salt diet, leg elevation. Continue Lasix at current dose. (5) Hypertension: Code(s): I10 - Essential (primary) hypertension Qualifiers: Hypertension type: essential hypertension Qualified Code(s): I10 - Essential (primary) hypertension Plan: Well controlled at this time. No medication changes made (6) Dyslipidemia: Code(s): E78.5 - Hyperlipidemia, unspecified Plan: Rechecking lipid profile on rosuvastatin Orders: Orders Lipid Panel Today E78.5 - Hyperlipidemia, unspecified Coding Level of Care Code Est Pt Level 4 (26098) Diagnoses Chest discomfort R07.89 CAD (coronary artery disease) I25.10 Stented coronary artery Z95.5 (HFpEF) heart failure with preserved ejection fraction I50.30 Essential hypertension I10 Hypertension type: essential hypertension Dyslipidemia E78.5 Time Spent (min) 28
== END 2023-10-02 15:50 | disposition home or self-care (01) ==
PROVIDERS: PCP Internal Medicine; Visit Provider Nurse Practitioner Family
DX: R07.89 Other chest pain (principal); I25.10 Atherosclerotic heart disease of native coronary artery without angina pectoris; Z95.5 Presence of coronary angioplasty implant and graft; I50.30 Unspecified diastolic (congestive) heart failure; I10 Essential (primary) hypertension; E78.5 Hyperlipidemia, unspecified
CPT/HCPCS: 99214

== ENCOUNTER → 2023-10-02 14:40 | Outpatient (BNVA) | payer MEDICARE, MEDICAID, SELFPAY | PROVIDERS: PCP Internal Medicine; Visit Provider Nurse Practitioner Family | DX: R07.89 Other chest pain (principal); I25.10 Atherosclerotic heart disease of native coronary artery without angina pectoris; I11.0 Hypertensive heart disease with heart failure; I50.30 Unspecified diastolic (congestive) heart failure; E78.5 Hyperlipidemia, unspecified; Z82.49 Family history of ischemic heart disease and other diseases of the circulatory system; Z95.5 Presence of coronary angioplasty implant and graft | CPT/HCPCS: 99212 ==

== ENCOUNTER 2023-11-14 12:59 | Outpatient (AMB) | payer MEDICARE, MEDICAID, SELFPAY ==
[2023-11-14 13:06] VITALS: PULSE 62; O2SAT 98; BMI 35.7
--- NOTE | 2023-11-14 13:06 | HO.NEPHOV ---
HPI HPI Comments History of Present Illness Details Elderly man with a h/o CKD in a setting of CHF and CAD and DM Accompanied by family c/o Edema No dyspnea On high dose of Lasix Interpretor service was used [facility] Medical History Mass of buttock Left buttock abscess Epidermal cyst Obesity due to excess calories CHF (congestive heart failure) Hypokalemia Diabetic nephropathy associated with type 2 diabetes mellitus CHF (congestive heart failure) Epilepsy Type 2 diabetes mellitus with hyperglycemia, with long-term current use of insulin Secondary hyperparathyroidism Diabetic neuropathy associated with type 2 diabetes mellitus CAD (coronary artery disease) (HFpEF) heart failure with preserved ejection fraction Hypertension Coronary stent patent BPH (benign prostatic hyperplasia) Dyslipidemia Neuropathy associated with endocrine disorder CKD (chronic kidney disease) Diabetes mellitus, type 2 Surgical History Stented coronary artery Hx of cardiac cath Family History Father Diabetes CVD (cardiovascular disease) Mother Diabetes CVD (cardiovascular disease) Brother Diabetes Son Thyroid disease Lung disease Psoriasis HTN (hypertension) Social History Household Members: Spouse and Family Housing: Apartment Do you presently have visiting nurse or other home services: No Alcohol intake: never Patient Tobacco Use Status: Former Tobacco user Advance Directives Date on File: 05/18/21 service: No Current occupational status: retired Vital Signs 11/14/23 13:06 Height 5 ft 6 in Weight 221 lb 2 oz BMI 35.7 Pulse 62 Pulse Source Pulse Oximeter Pulse Oximetry (%) 98 Oxygen Delivery Method Room Air Physical Exam Vital Signs: Last Vital Signs Pulse 62 11/14/23 13:06 Pulse Ox 98 11/14/23 13:06 Oxygen Delivery Method Room Air 11/14/23 13:06 BMI result Body Mass Index 35.7 Awake. Comfortable. Neck is supple. Mucosa moist. Lungs bilateral scattered rhonchi. Heart S1-S2 heard no gallop. Abdomen soft. Extremities 2+ edema. No involuntary movements. No myoclonus. Assessment & Plan Assessment & Plan (1) Chronic heart failure with preserved ejection fraction (HFpEF): Code(s): I50.32 - Chronic diastolic (congestive) heart failure (2) CKD (chronic kidney disease): Code(s): N18.9 - Chronic kidney disease, unspecified (3) (HFpEF) heart failure with preserved ejection fraction: Code(s): I50.30 - Unspecified diastolic (congestive) heart failure Plan CKD in a setting of longstanding DM and CHF Current has volume overload Needs to stay on low salt diet. Discussed with family Keep Lasix 80 mg BID and Zaroxylin 2.5 mg 2x week Recheck labs today and would increase Zaroxylin if needed BP is acceptable Maintain A1C < 7% Would benefit from SGLT-2 inhibitor - continue with Jardiance Watch K while of Spironolactone Orders: Orders Parathyroid Hormone Intact Today I10 - Essential (primary) hypertension, I25.10 - Atherosclerotic heart disease of [place] coronary artery without angina pectoris, I50.32 - Chronic diastolic (congestive) heart failure Phosphorus Today I10 - Essential (primary) hypertension, I25.10 - Atherosclerotic heart disease of [place] coronary artery without angina pectoris, I50.32 - Chronic diastolic (congestive) heart failure Comprehensive Met. Panel Today I10 - Essential (primary) hypertension, I25.10 - Atherosclerotic heart disease of [place] coronary artery without angina pectoris, I50.32 - Chronic diastolic (congestive) heart failure Coding Level of Care Code Est Pt Level 4 (20024) Diagnoses Chronic heart failure with preserved ejection fraction (HFpEF) I50.32 CKD (chronic kidney disease) N18.9 (HFpEF) heart failure with preserved ejection fraction I50.30 Results Reviewed Nephrology Results: Hgb 11.9 g/dl (14.0-18.0) L 09/05/23 WBC 6.0 X10*3/uL (4.8-10.8) 09/05/23 Plt Count 256 X10*3/uL (160-400) 09/05/23 Sodium 143 mmol/L (135-145) 09/05/23 Potassium 4.1 mmol/L (3.3-5.1) 09/05/23 Chloride 109 mmol/L (96-108) H 09/05/23 Carbon Dioxide 27 mmol/L (22-29) 09/05/23 BUN 31 mg/dL (9-16) H 09/05/23 Creatinine 1.26 mg/dL (0.5-1.4) 09/05/23 Calcium 9.0 mg/dL (8.4-10.2) 09/05/23 Urine Protein Negative mg/dL (Neg-Trace) 09/05/23 Urine Creatinine 98.13 mg/dL 05/22/23 Protein/Creatinin Ratio 0.41 (<0.2) H 05/22/23
== END 2023-11-14 13:27 | disposition home or self-care (01) ==
PROVIDERS: PCP Internal Medicine; Visit Provider Internal Medicine Hypertension Specialist
DX: I50.32 Chronic diastolic (congestive) heart failure (principal); N18.9 Chronic kidney disease, unspecified; I50.30 Unspecified diastolic (congestive) heart failure
CPT/HCPCS: 99214

== ENCOUNTER → 2023-11-14 12:59 | Outpatient (BNVA) | payer MEDICARE, MEDICAID, SELFPAY | PROVIDERS: PCP Internal Medicine; Visit Provider Internal Medicine Hypertension Specialist | DX: I50.32 Chronic diastolic (congestive) heart failure (principal); E11.22 Type 2 diabetes mellitus with diabetic chronic kidney disease; N18.9 Chronic kidney disease, unspecified | CPT/HCPCS: 99212 ==

== ENCOUNTER 2023-11-15 08:48 | Outpatient (REF) | payer MEDICARE, MEDICAID, SELFPAY ==
[2023-11-15 09:41] LABS: Estimated Average Glucose 209 mg/dL; Hemoglobin A1c % 8.9 % (<6.0)
[2023-11-15 10:08] LABS: Parathyroid Hormone Intact 150.9 pg/mL (8.7-77.1)
[2023-11-15 10:09] LABS: Alanine Aminotransferase 9 U/L (0-40); Albumin Level 3.5 g/dL (3.5-5.0); Alkaline Phosphatase 99 U/L (39-117); Anion Gap 11 (12-20); Aspartate Amino Transferase 11 U/L (5-37); Bilirubin Total 0.2 mg/dL (0.0-1.0); Blood Urea Nitrogen 26 mg/dL (9-16); Calcium 9.4 mg/dL (8.4-10.2); Carbon Dioxide 27 mmol/L (22-29); Chloride 110 mmol/L (96-108); Estimated Glomerular Filt Rate 52; Glucose Random 197 mg/dL (60-115); Phosphorus 3.2 mg/dL (2.7-4.5); Potassium 4.3 mmol/L (3.3-5.1); Sodium 144 mmol/L (135-145); Total Protein 7.7 g/dL (6.5-8.0)
== END 2023-11-15 08:49 | disposition home or self-care (01) ==
LOC: HO.LAB 08:48
PROVIDERS: Absent Provider Internal Medicine; PCP Internal Medicine; Visit Provider Internal Medicine Hypertension Specialist
DX: I25.10 Atherosclerotic heart disease of native coronary artery without angina pectoris (principal); E11.22 Type 2 diabetes mellitus with diabetic chronic kidney disease; E83.52 Hypercalcemia; I13.0 Hypertensive heart and chronic kidney disease with heart failure and stage 1 through stage 4 chronic kidney disease, or unspecified chronic kidney disease; I50.32 Chronic diastolic (congestive) heart failure; N18.9 Chronic kidney disease, unspecified; Z79.899 Other long term (current) drug therapy; Z87.2 Personal history of diseases of the skin and subcutaneous tissue
CPT/HCPCS: 36415; 80053; 82306; 83036; 83970; 84100; 99212

== ENCOUNTER 2023-11-15 12:39 | Outpatient (AMB) | payer MEDICARE, MEDICAID, SELFPAY ==
--- NOTE | 2023-11-15 12:58 | A.OFFVIS_ITS ---
Intake Vital Signs 11/15/23 13:08 Height 5 ft 6 in Weight 219 lb BMI 35.3 BP 141/67 H Blood Pressure Location Rt brachial Position Sitting Pulse 72 Intake Visit Reasons: Buttock cyst Intake Note: This patient presents for an assessment for buttock cyst. Patient c/o; reports was in [place] for about 1 month and it was big and it burst, reports pain when sit for prolong periods of time. Supervisor Anodizing Required: Yes Supervisor Anodizing Language: [employer] Tech Name: Kendra Information Interpreted: non-clinical & clinical Accompanied by: Daughter Allergies codeine [CODEINE] Allergy (Unknown, Verified 11/15/23 13:10) UNKNOWN lisinopril Allergy (Unknown, Uncoded 11/15/23 13:10) choking Medication List - Last Reconciled 11/15/23 by Gennaro Calle MD aspirin (Adult Low Dose Aspirin) 81 mg PO DAILY BD Nicole 2nd Gen Pen Needle (pen needle, diabetic) 5 times a day NS blood sugar diagnostic As directed cyclobenzaprine 10 mg PO Q8H empagliflozin (Jardiance) 10 mg PO QAM furosemide 80 mg PO BID insulin glargine (Basaglar KwikPen U-100 Insulin) 28 units (0.28 mL) subcut DAILY isosorbide mononitrate ER 30 mg PO DAILY lancets (FreeStyle Lancets) As directed metolazone 2.5 mg orally monday/; 30 days metoprolol succinate ER (Toprol XL) 50 mg PO DAILY nitroglycerin 0.4 mg sublingual One tab under the tongue every 5 minutes as needed for chest pain up to 3; Novolog FlexPen U-100 Insulin (insulin aspart U-100) 8 units for breakfast, 14 units for lunch, 10 units for dinner, 5 for snack + 2 units for bg over 200. subcut 3 times a day; NS pantoprazole 40 mg PO DAILY pen needle, diabetic (BD Ultra-Fine Nicole Pen Needle) As directed five times a day phenytoin sodium extended (Dilantin Extended) 300 mg (3 x 100 mg) PO DAILY phenytoin sodium extended 300 mg PO BEDTIME pregabalin 100 mg PO BID rosuvastatin 40 mg PO DAILY spironolactone 25 mg PO DAILY tamsulosin 0.4 mg PO DAILY 90 days HPI Buttock cyst HPI Details He has a history of a left buttock abscess and had undergone I and D last July,. He had been doing well but the day after [place] last month, he was in [place] and was noted to have some swelling of the area on the left buttock as before. This drained spontaneously. Has been doing well since then. He currently denies any significant pain or drainage. He wanted the area checked. [facility]LY [facility] Medical History Mass of buttock Left buttock abscess Epidermal cyst Obesity due to excess calories CHF (congestive heart failure) Hypokalemia Diabetic nephropathy associated with type 2 diabetes mellitus CHF (congestive heart failure) Epilepsy Type 2 diabetes mellitus with hyperglycemia, with long-term current use of ins ulin Secondary hyperparathyroidism Diabetic neuropathy associated with type 2 diabetes mellitus CAD (coronary artery disease) (HFpEF) heart failure with preserved ejection fraction Hypertension Coronary stent patent BPH (benign prostatic hyperplasia) Dyslipidemia Neuropathy associated with endocrine disorder CKD (chronic kidney disease) Diabetes mellitus, type 2 Surgical History Stented coronary artery Hx of cardiac cath Family History Father Diabetes CVD (cardiovascular disease) Mother Diabetes CVD (cardiovascular disease) Brother Diabetes Son Thyroid disease Lung disease Psoriasis HTN (hypertension) Social History Household Members: Spouse and Family Housing: Apartment Do you presently have visiting nurse or other home services: No Alcohol intake: never Patient Tobacco Use Status: Former Tobacco user Advance Directives Date on File: 05/18/21 service: No Current occupational status: retired Review of Systems Const Denies chills and Denies fever(s) Card Denies chest pain, Denies dyspnea and Denies dyspnea on exertion Resp Denies cough, Denies dyspnea and Denies dyspnea on exertion GI Denies hematochezia and Denies change in bowel habits Denies hematuria and Denies difficulty urinating Musc Reports back pain, Reports myalgias, Reports arthralgias and Reports limited range of motion Neuro Denies focal weakness and Denies convulsions Psych Denies depression and Denies mood swings Physical Exam Vital Signs: Last Vital Signs Pulse 72 11/15/23 13:08 BP 141/67 H 11/15/23 13:08 BMI result Body Mass Index 35.3 Const Other: Using a walker General: comfortable and no acute distress Resp Effort & Inspection: normal respiratory effort GI Palpation (GI): Soft to palpation Back/Spine/Pelvis Other: Examination of the left buttock adjacent to the anus - mild residual induration, no fluctuance, no redness, no active drainage at this time, no significant tenderness, no cellulitis Assessment & Plan Assessment & Plan (1) Left buttock abscess: Code(s): L02.31 - Cutaneous abscess of buttock Plan: It appears that he has had recurrence of the left buttock abscess in [place] a month ago. Current exam suggest that this has drained spontaneously and there has no residual abscess cavity at this time It appears he had a recurrence of the left buttock abscess from a ruptured epidermal cyst. If this continues to recur, we may need to do formal excision of the area. At this time, I instructed the daughter to do warm compresses to the area. They are welcome to come back to the office to be re-evaluated if this continues to recur. Coding Level of Care Code Est Pt Level 3 (55920) Diagnoses Left buttock abscess L02.31
[2023-11-15 13:08] VITALS: BP 141/67; PULSE 72; BMI 35.3
== END 2023-11-15 13:15 | disposition home or self-care (01) ==
PROVIDERS: PCP Internal Medicine; Visit Provider Surgery
DX: L02.31 Cutaneous abscess of buttock (principal)
CPT/HCPCS: 99213

== ENCOUNTER 2023-12-05 16:02 | Outpatient (AMB) | payer MEDICARE, MEDICAID, SELFPAY ==
[2023-12-05 16:11] VITALS: BP 110/70; PULSE 62; O2SAT 98; BMI 35.0
--- NOTE | 2023-12-05 16:11 | HO.NEPHOV ---
HPI HPI Comments History of Present Illness Details Elderly man with a h/o CKD in a setting of CHF and CAD and DM Accompanied by family c/o Edema No dyspnea On high dose of Lasix He has lost 4 lbs in 1 months Recovering from resp tract infection [facility] Medical History Mass of buttock Left buttock abscess Epidermal cyst Obesity due to excess calories CHF (congestive heart failure) Hypokalemia Diabetic nephropathy associated with type 2 diabetes mellitus CHF (congestive heart failure) Epilepsy Type 2 diabetes mellitus with hyperglycemia, with long-term current use of insulin Secondary hyperparathyroidism Diabetic neuropathy associated with type 2 diabetes mellitus CAD (coronary artery disease) (HFpEF) heart failure with preserved ejection fraction Hypertension Coronary stent patent BPH (benign prostatic hyperplasia) Dyslipidemia Neuropathy associated with endocrine disorder CKD (chronic kidney disease) Diabetes mellitus, type 2 Surgical History Stented coronary artery Hx of cardiac cath Family History Father Diabetes CVD (cardiovascular disease) Mother Diabetes CVD (cardiovascular disease) Brother Diabetes Son Thyroid disease Lung disease Psoriasis HTN (hypertension) Social History Household Members: Spouse and Family Housing: Apartment Do you presently have visiting nurse or other home services: No Alcohol intake: never Patient Tobacco Use Status: Former Tobacco user Advance Directives Date on File: 05/18/21 service: No Current occupational status: retired Vital Signs 12/05/23 16:11 Height 5 ft 6 in Weight 217 lb BMI 35.0 BP 110/70 Blood Pressure Location Lt brachial Position Sitting Pulse 62 Pulse Source Pulse Oximeter Pulse Oximetry (%) 98 Oxygen Delivery Method Room Air Physical Exam Vital Signs: Last Vital Signs Pulse 62 12/05/23 16:11 BP 110/70 12/05/23 16:11 Pulse Ox 98 12/05/23 16:11 Oxygen Delivery Method Room Air 12/05/23 16:11 BMI result Body Mass Index 35.0 Awake. Comfortable. Neck is supple. Mucosa moist. Lungs bilateral scattered rhonchi. Heart S1-S2 heard no gallop. Abdomen soft. Extremities 2+ edema. No involuntary movements. No myoclonus. Assessment & Plan Assessment & Plan (1) Chronic heart failure with preserved ejection fraction (HFpEF): Code(s): I50.32 - Chronic diastolic (congestive) heart failure (2) CKD (chronic kidney disease): Code(s): N18.9 - Chronic kidney disease, unspecified (3) (HFpEF) heart failure with preserved ejection fraction: Code(s): I50.30 - Unspecified diastolic (congestive) heart failure Plan CKD in a setting of longstanding DM and CHF Current has volume overload Needs to stay on low salt diet. Discussed with family Keep Lasix 80 mg BID and Zaroxylin 2.5 mg 2x week BP is acceptable Maintain A1C < 7% Would benefit from SGLT-2 inhibitor - continue with Jardiance Watch K while of Spironolactone Added Vit D to correct deficiency Mild Anemia Stable. No indication for Epogen Orders: Orders Basic Metabolic Panel 3 Months I10 - Essential (primary) hypertension, N18.9 - Chronic kidney disease, unspecified Parathyroid Hormone Intact 3 Months I10 - Essential (primary) hypertension, N18.9 - Chronic kidney disease, unspecified Medications: New cholecalciferol (vitamin D3) 25 mcg PO DAILY 30 caps 3RF Coding Level of Care Code Est Pt Level 4 (61304) Diagnoses Chronic heart failure with preserved ejection fraction (HFpEF) I50.32 CKD (chronic kidney disease) N18.9 (HFpEF) heart failure with preserved ejection fraction I50.30 Results Reviewed Nephrology Results: Hgb 11.9 g/dl (14.0-18.0) L 09/05/23 WBC 6.0 X10*3/uL (4.8-10.8) 09/05/23 Plt Count 256 X10*3/uL (160-400) 09/05/23 Sodium 144 mmol/L (135-145) 11/15/23 Potassium 4.3 mmol/L (3.3-5.1) 11/15/23 Chloride 110 mmol/L (96-108) H 11/15/23 Carbon Dioxide 27 mmol/L (22-29) 11/15/23 BUN 26 mg/dL (9-16) H 11/15/23 Creatinine 1.31 mg/dL (0.5-1.4) 11/15/23 Calcium 9.4 mg/dL (8.4-10.2) 11/15/23 Phosphorus 3.2 mg/dL (2.7-4.5) 11/15/23 PTH Intact 150.9 pg/mL (8.7-77.1) H 11/15/23 Urine Protein Negative mg/dL (Neg-Trace) 09/05/23
== END 2023-12-05 16:27 | disposition home or self-care (01) ==
PROVIDERS: PCP Internal Medicine; Visit Provider Internal Medicine Hypertension Specialist
DX: I50.32 Chronic diastolic (congestive) heart failure (principal); N18.9 Chronic kidney disease, unspecified; I50.30 Unspecified diastolic (congestive) heart failure
CPT/HCPCS: 99214

== ENCOUNTER → 2023-12-05 16:02 | Outpatient (BNVA) | payer MEDICARE, MEDICAID, SELFPAY | PROVIDERS: PCP Internal Medicine; Visit Provider Internal Medicine Hypertension Specialist | DX: N18.9 Chronic kidney disease, unspecified (principal); I50.32 Chronic diastolic (congestive) heart failure | CPT/HCPCS: 99212 ==

== ENCOUNTER 2024-01-12 08:53 | Outpatient (REF) | payer MEDICARE, MEDICAID, SELFPAY ==
[2024-01-12 09:34] LABS: MANUAL DIFF FLAG NO
[2024-01-12 10:04] LABS: Basophils Absolute Auto 0.1 X10*3/uL (0.0-0.2); Eosinophils Absolute Auto 0.3 X10*3/uL (0.0-0.4); Eosinophils Percent Auto 5.5 % (0-4); Estimated Average Glucose 194 mg/dL; Hematocrit 39.8 % (42.0-52.0); Hemoglobin 12.8 g/dl (14.0-18.0); Hemoglobin A1c % 8.4 % (<6.0); Imm Gran Abs Auto 0.01 X10*3/uL (0.00-0.03); Imm Gran Pct Auto 0.2 % (0.0-0.4); Lymphocytes Absolute Auto 1.2 X10*3/uL (1.2-4.9); Lymphocytes Percent Auto 19.8 % (20-40); Mean Corpuscular HGB Conc 32.2 g/dl (31.0-36.0); Mean Corpuscular Hemoglobin 27.8 pg (27.0-33.0); Mean Corpuscular Volume 86.3 fL (80.0-98.0); Mean Platelet Volume 10.5 fL (9.4-12.4); Monocytes Absolute Auto 0.5 X10*3/uL (0.1-1.2); Monocytes Percent Auto 8.3 % (2-11); Neutrophils Absolute Auto 3.9 x10*3/uL (2.0-8.3); Neutrophils Percent Auto 65.2 % (45-73); Platelet Count 220 X10*3/uL (160-400); Red Blood Count 4.61 X10*6/uL (4.60-5.80); Red Cell Distribution Width 15.6 % (11.0-16.0)
[2024-01-12 10:45] LABS: Alanine Aminotransferase 10 U/L (0-40); Albumin Level 3.7 g/dL (3.5-5.0); Alkaline Phosphatase 104 U/L (39-117); Anion Gap 11 (12-20); Aspartate Amino Transferase 12 U/L (5-37); Bilirubin Total 0.2 mg/dL (0.0-1.0); Blood Urea Nitrogen 19 mg/dL (9-16); Calcium 9.2 mg/dL (8.4-10.2); Carbon Dioxide 28 mmol/L (22-29); Chloride 107 mmol/L (96-108); Cholesterol 199 mg/dL (<200); Estimated Glomerular Filt Rate > 60; Glucose Random 143 mg/dL (60-115); HDL Cholesterol 49 mg/dL (>40); LDL Cholesterol Calculated 117 mg/dL (<100); Potassium 3.8 mmol/L (3.3-5.1); Sodium 142 mmol/L (135-145); Total Protein 7.7 g/dL (6.5-8.0); Triglycerides 168 mg/dL (<150)
[2024-01-12 10:47] LABS: Parathyroid Hormone Intact 121.5 pg/mL (8.7-77.1)
[2024-01-12 10:51] LABS: Phenytoin Dilantin 11.4 ug/mL (10.0-20.0)
[2024-01-12 11:07] LABS: Prostate Specific Antigen Scr 2.92 ng/mL (<0.05-4.0)
[2024-01-12 11:29] LABS: Microalbum/Creatinine Ratio Ur 123.3 ug/mg cr (<30)
== END 2024-01-12 08:54 | disposition home or self-care (01) ==
LOC: HO.LAB 08:53
PROVIDERS: PCP Internal Medicine; Visit Provider Internal Medicine
DX: E11.22 Type 2 diabetes mellitus with diabetic chronic kidney disease (principal); E55.9 Vitamin D deficiency, unspecified; E78.00 Pure hypercholesterolemia, unspecified; E83.52 Hypercalcemia; G40.109 Localization-related (focal) (partial) symptomatic epilepsy and epileptic syndromes with simple partial seizures, not intractable, without status epilepticus; I12.9 Hypertensive chronic kidney disease with stage 1 through stage 4 chronic kidney disease, or unspecified chronic kidney disease; N18.9 Chronic kidney disease, unspecified; N40.1 Benign prostatic hyperplasia with lower urinary tract symptoms; Z12.5 Encounter for screening for malignant neoplasm of prostate
CPT/HCPCS: 36415; 80053; 80061; 80185; 82043; 82570; 83036; 83970; 84153; 85025

== ENCOUNTER 2024-03-11 16:15 | Outpatient (AMB) | payer MEDICARE, MEDICAID, SELFPAY ==
[2024-03-11 16:15] VITALS: BP 142/88; PULSE 66; O2SAT 97; BMI 34.2
--- NOTE | 2024-03-11 16:15 | HO.NEPHOV ---
Vital Signs 03/11/24 16:15 03/11/24 16:33 Height 5 ft 6 in Weight 212 lb BMI 34.2 BP 142/88 H 136/80 Blood Pressure Location Lt brachial Lt brachial Position Sitting Sitting Pulse 66 Pulse Source Pulse Oximeter Pulse Oximetry (%) 97 Oxygen Delivery Method Room Air Intake Visit Reasons: CKD/ 3 MO FU/ LVM Counterintelligence/Humint Specialist Required: No Accompanied by: Son Allergies codeine [CODEINE] Allergy (Unknown, Verified 03/11/24 16:19) UNKNOWN lisinopril Allergy (Unknown, Uncoded 11/15/23 13:10) choking HPI Comments Details: Elderly man with a h/o CKD in a setting of CHF and CAD and DM Accompanied by family c/o Edema No dyspnea On high dose of Lasix Doing better today Lost 5- 6 lbs PFSH Medical History Mass of buttock Left buttock abscess Epidermal cyst Obesity due to excess calories CHF (congestive heart failure) Hypokalemia Diabetic nephropathy associated with type 2 diabetes mellitus CHF (congestive heart failure) Epilepsy Type 2 diabetes mellitus with hyperglycemia, with long-term current use of insulin Secondary hyperparathyroidism Diabetic neuropathy associated with type 2 diabetes mellitus CAD (coronary artery disease) (HFpEF) heart failure with preserved ejection fraction Hypertension Coronary stent patent BPH (benign prostatic hyperplasia) Dyslipidemia Neuropathy associated with endocrine disorder CKD (chronic kidney disease) Diabetes mellitus, type 2 Surgical History Stented coronary artery Hx of cardiac cath Family History Father Diabetes CVD (cardiovascular disease) Mother Diabetes CVD (cardiovascular disease) Brother Diabetes Son Thyroid disease Lung disease Psoriasis HTN (hypertension) Social History Household Members: Spouse and Family Housing: Apartment Do you presently have visiting nurse or other home services: No Alcohol intake: never Patient Tobacco Use Status: Former Tobacco user Advance Directives Date on File: 05/18/21 service: No Current occupational status: retired Physical Exam Vital Signs: Last Vital Signs Pulse 66 03/11/24 16:15 BP 142/88 H 03/11/24 16:15 Pulse Ox 97 03/11/24 16:15 Oxygen Delivery Method Room Air 03/11/24 16:15 BMI result Body Mass Index 34.2 Awake. Comfortable. Neck is supple. Mucosa moist. Lungs bilateral scattered rhonchi. Heart S1-S2 heard no gallop. Abdomen soft. Extremities 2+ edema. No involuntary movements. No myoclonus. Results Reviewed Nephrology Results: Hgb 12.8 g/dl (14.0-18.0) L 01/12/24 WBC 6.0 X10*3/uL (4.8-10.8) 01/12/24 Plt Count 220 X10*3/uL (160-400) 01/12/24 Sodium 142 mmol/L (135-145) 01/12/24 Potassium 3.8 mmol/L (3.3-5.1) 01/12/24 Chloride 107 mmol/L (96-108) 01/12/24 Carbon Dioxide 28 mmol/L (22-29) 01/12/24 BUN 19 mg/dL (9-16) H 01/12/24 Creatinine 1.08 mg/dL (0.5-1.4) 01/12/24 Calcium 9.2 mg/dL (8.4-10.2) 01/12/24 Phosphorus 3.2 mg/dL (2.7-4.5) 11/15/23 PTH Intact 121.5 pg/mL (8.7-77.1) H 01/12/24 Urine Protein Negative mg/dL (Neg-Trace) 09/05/23 Urine Creatinine 69.70 mg/dL 01/12/24 Assessment & Plan Assessment & Plan (1) Chronic heart failure with preserved ejection fraction (HFpEF): Code(s): I50.32 - Chronic diastolic (congestive) heart failure Category: Medical (2) CKD (chronic kidney disease): Code(s): N18.9 - Chronic kidney disease, unspecified Category: Medical (3) (HFpEF) heart failure with preserved ejection fraction: Code(s): I50.30 - Unspecified diastolic (congestive) heart failure Category: Medical Plan CKD in a setting of longstanding DM and CHF Volume status seems acceptable Needs to stay on low salt diet. Discussed with family Keep Lasix 80 mg BID and Zaroxylin 2.5 mg 2x week Maintian BP < 130/80 Maintain A1C < 7% Would benefit from SGLT-2 inhibitor - continue with Jardiance Watch K while of Spironolactone Keep Vit D to correct deficiency Mild Anemia Stable. No indication for Epogen Orders: Orders Complete Blood Count Auto Diff Today N18.30 - Chronic kidney disease, stage 3 unspecified, N18.9 - Chronic kidney disease, unspecified Comprehensive Met. Panel Today N18.9 - Chronic kidney disease, unspecified Parathyroid Hormone Intact Today N18.9 - Chronic kidney disease, unspecified Coding Level of Care Code Est Pt Level 4 (61773) Diagnoses Chronic heart failure with preserved ejection fraction (HFpEF) I50.32 CKD (chronic kidney disease) N18.9 (HFpEF) heart failure with preserved ejection fraction I50.30
[2024-03-11 16:33] VITALS: BP 136/80
== END 2024-03-11 16:37 | disposition home or self-care (01) ==
PROVIDERS: PCP Internal Medicine; Visit Provider Internal Medicine Hypertension Specialist
DX: I50.32 Chronic diastolic (congestive) heart failure (principal); N18.9 Chronic kidney disease, unspecified; I50.30 Unspecified diastolic (congestive) heart failure
CPT/HCPCS: 99214

== ENCOUNTER → 2024-03-11 16:15 | Outpatient (BNVA) | payer MEDICARE, MEDICAID, SELFPAY | PROVIDERS: PCP Internal Medicine; Visit Provider Internal Medicine Hypertension Specialist | DX: E11.22 Type 2 diabetes mellitus with diabetic chronic kidney disease (principal); I13.0 Hypertensive heart and chronic kidney disease with heart failure and stage 1 through stage 4 chronic kidney disease, or unspecified chronic kidney disease; N18.30 Chronic kidney disease, stage 3 unspecified; I50.32 Chronic diastolic (congestive) heart failure | CPT/HCPCS: 99212 ==

== ENCOUNTER 2024-04-09 15:00 | Outpatient (AMB) | payer MEDICARE, MEDICAID, SELFPAY ==
--- NOTE | 2024-04-09 15:13 | A.OFFVIS_ITS ---
Vital Signs 04/09/24 15:15 Height 5 ft 6 in Weight 207 lb 3.752 oz BMI 33.4 BP 160/60 H Blood Pressure Location Lt brachial Position Sitting Pulse 57 Pulse Source Monitor Intake Visit Reasons: 6 mos followup Senior Formulation Scientist: Senior Formulation Scientist Present Allergies codeine [CODEINE] Allergy (Unknown, Verified 04/09/24 15:18) UNKNOWN lisinopril Allergy (Unknown, Uncoded 04/09/24 15:18) choking Medication List - Last Reconciled 04/09/24 by BEATRICE Easton aspirin (Adult Low Dose Aspirin) 81 mg PO DAILY BD Nicole 2nd Gen Pen Needle (pen needle, diabetic) 5 times a day NS blood sugar diagnostic As directed cholecalciferol (vitamin D3) 25 mcg PO DAILY empagliflozin (Jardiance) 25 mg PO DAILY ezetimibe 10 mg PO DAILY ezetimibe 10 mg PO DAILY furosemide 80 mg PO BID insulin glargine (Basaglar KwikPen U-100 Insulin) 28 units (0.28 mL) subcut DAILY isosorbide mononitrate ER 30 mg PO DAILY lancets (FreeStyle Lancets) As directed metoprolol succinate ER 100 mg PO DAILY nitroglycerin 0.4 mg sublingual One tab under the tongue every 5 minutes as needed for chest pain up to 3; Novolog FlexPen U-100 Insulin (insulin aspart U-100) 8 units for breakfast, 14 units for lunch, 10 units for dinner, 5 for snack + 2 units for bg over 200. subcut 3 times a day; NS pantoprazole 40 mg PO DAILY pen needle, diabetic (BD Ultra-Fine Nicole Pen Needle) As directed five times a day phenytoin sodium extended (Dilantin Extended) 300 mg (3 x 100 mg) PO DAILY pregabalin 300 mg PO BID rosuvastatin 40 mg PO DAILY spironolactone 25 mg PO DAILY tamsulosin 0.4 mg PO DAILY 90 days HPI HPI 6 mos followup: Details: Andres is an 84-year-old male with past medical history of hypertension, hyperlipidemia, diabetes, coronary artery disease, lad stent 2018, residual RCA and distal left circumflex stenosis, heart failure with preserved EF who presents for follow-up. Today he reports that he has been experiencing some anterior chest discomfort. He is very vague in describing his symptom even with his son helping to translate. His son is questioning whether he is having difficulty hearing. He denies having chest discomfort at this time. He has some shortness of breath with activity which is not new. No clear palpitations, presyncope, syncope, falls. He ambulates with walker. He has chronic lower leg edema, which is evident by sock markings. Son is present and assisting with translation at their request. Permit signed. [facility] Medical History Mass of buttock Left buttock abscess Epidermal cyst Obesity due to excess calories CHF (congestive heart failure) Hypokalemia Diabetic nephropathy associated with type 2 diabetes mellitus CHF (congestive heart failure) Epilepsy Type 2 diabetes mellitus with hyperglycemia, with long-term current use of insulin Secondary hyperparathyroidism Diabetic neuropathy associated with type 2 diabetes mellitus CAD (coronary artery disease) (HFpEF) heart failure with preserved ejection fraction Hypertension Coronary stent patent BPH (benign prostatic hyperplasia) Dyslipidemia Neuropathy associated with endocrine disorder CKD (chronic kidney disease) Diabetes mellitus, type 2 Surgical History Stented coronary artery Hx of cardiac cath Family History Father Diabetes CVD (cardiovascular disease) Mother Diabetes CVD (cardiovascular disease) Brother Diabetes Son Thyroid disease Lung disease Psoriasis HTN (hypertension) Social History Household Members: Spouse and Family Housing: Apartment Do you presently have visiting nurse or other home services: No Alcohol intake: never Patient Tobacco Use Status: Former Tobacco user Advance Directives Date on File: 05/18/21 service: No Current occupational status: retired Review of Systems Const All systems reviewed & are unremarkable except as noted in HPI and below ENT Denies dizziness Card Reports chest pain, Denies chest pain at rest, Reports chest pain with activity, Denies rapid heart rate, Denies pedal edema, Denies edema, Denies leg edema, Denies lightheadedness, Denies palpitations, Reports dyspnea, Reports dyspnea on exertion and Denies orthopnea Resp Denies cough, Reports dyspnea and Reports dyspnea on exertion GI Denies hematochezia and Denies change in stool character Musc Denies abnormal gait, Denies limited range of motion, Denies muscle cramps, Denies muscle weakness, Denies numbness, Denies radiating pain into limb, Denies stiffness and Denies tingling Neuro Denies abnormal gait, Denies dizziness, Denies numbness and Denies tingling Endo Denies palpitations Physical Exam Vital Signs: Last Vital Signs Pulse 57 04/09/24 15:15 BP 160/60 H 04/09/24 15:15 BMI result Body Mass Index 33.4 Const General: cooperative, healthy appearing, comfortable and no acute distress Orientation/consciousness: patient oriented x3 Neck Neck: Yes normal visual inspection and Yes no JVD Resp Effort & Inspection: normal respiratory effort Auscultation: clear to auscultation bilaterally, no rales, no rhonchi and no wheezes Cardio Jugular venous distension: no JVD Rate: regular rate Rhythm: regular rhythm Heart sounds: S1 normal heart sound present, S2 normal heart sound present, no murmurs and no rubs Neuro General: patient oriented x3 Extrem General: Yes normal to inspection, No no pedal edema and No calf tenderness Psych Appearance: grossly normal Mental Status: mental status grossly normal Speech and movement: Normal speech and movement present Office Procedures EKG Details: Today, read by me, sinus bradycardia, first-degree AV block, rate [address] or T-wave abnormalities, QTC 430 milliseconds [id number], Complete Assessment & Plan Assessment & Plan (1) Chest discomfort: Code(s): R07.89 - Other chest pain Category: Medical Plan: Reports of anterior chest discomfort that has been occurring recently. No other clear details about this symptom. Denies having discomfort at present. He does have a known history of CAD with LAD stent 2018 and residual left circumflex and RCA stenosis. EKG done today showing sinus bradycardia with first-degree AV block, no acute ST or T-wave abnormalities. With his known coronary artery disease will need to evaluate for ischemia. Will check an echocardiogram to assess EF and wall motion. Will check a pharmacological nuclear stress test to evaluate for ischemia. Reviewed signs and symptoms of angina reviewed with him. Emergency care if needed for symptoms not relieved by nitroglycerin or rest. Cardiology follow-up when test results are available. (2) CAD (coronary artery disease): Code(s): I25.10 - Atherosclerotic heart disease of [place] coronary artery without angina pectoris Category: Medical Plan: As above. Continue management for CAD with aspirin indefinitely. Continue metoprolol and isosorbide. Will be increasing isosorbide dose up to 60 mg daily. Continue high-dose rosuvastatin with ideal LDL goal less than 70, Zetia. Labs done on 01/12/2024 shows LDL 117. Son states that his mother helps patient with his med management. PCSK9 inhibitor is being considered however on sure if patient will be able to maneuver this. He may have some mild dementia versus hard of hearing. Son is present in unsure at this time. Benefits of strict med compliance, weight loss and activity as tolerated reviewed. (3) Stented coronary artery: Code(s): Z95.5 - Presence of coronary angioplasty implant and graft Category: Surgical Plan: LAD stent 2018 (4) (HFpEF) heart failure with preserved ejection fraction: Code(s): I50.30 - Unspecified diastolic (congestive) heart failure Category: Medical Plan: History of heart failure with preserved EF. Last echo 06/08/2022 showing EF 55- 60%, moderate septal asymmetric hypertrophy, moderate mitral annular calcification. On exam today he does not appear fluid overloaded. He does have issues with chronic lower leg edema. He continues on Lasix 80 mg b.i.d.. Will be updating echo as above. Reviewed low-salt diet, leg elevation. Continue Lasix at current dose. (5) Hypertension: Code(s): I10 - Essential (primary) hypertension Category: Medical Qualifiers: Hypertension type: essential hypertension Qualified Code(s): I10 - Essential (primary) hypertension Plan: Elevated at this visit. This may be contributing to his chest discomfort. Will be increasing his isosorbide dose. (6) Dyslipidemia: Code(s): E78.5 - Hyperlipidemia, unspecified Category: Medical Plan: As above Plan Time spent on chart review, documentation, interview and assessment Medications: New isosorbide mononitrate ER Dose increased 60 mg PO DAILY 90 tabs 3RF Discontinued isosorbide mononitrate ER Discontinued Reason: Doctor's Order 30 mg PO DAILY 90 tabs 3RF I25.10 - Atherosclerotic heart disease of [place] coronary artery without angina pectoris Coding Level of Care Code Est Pt Level 4 (90658) Diagnoses Chest discomfort R07.89 CAD (coronary artery disease) I25.10 Stented coronary artery Z95.5 (HFpEF) heart failure with preserved ejection fraction I50.30 Essential hypertension I10 Hypertension type: essential hypertension Dyslipidemia E78.5 CPT Codes EKG - CPT: [id number], Complete ([id number]) Time Spent (min) 30
[2024-04-09 15:15] VITALS: BP 160/60; PULSE 57; BMI 33.4
== END 2024-04-09 15:47 | disposition home or self-care (01) ==
PROVIDERS: PCP Internal Medicine; Visit Provider Nurse Practitioner Family
DX: R07.89 Other chest pain (principal); I25.10 Atherosclerotic heart disease of native coronary artery without angina pectoris; Z95.5 Presence of coronary angioplasty implant and graft; I50.30 Unspecified diastolic (congestive) heart failure; I10 Essential (primary) hypertension; E78.5 Hyperlipidemia, unspecified
CPT/HCPCS: 93010; 99214

== ENCOUNTER → 2024-04-09 15:00 | Outpatient (BNVA) | payer MEDICARE, MEDICAID, SELFPAY | PROVIDERS: PCP Internal Medicine; Visit Provider Nurse Practitioner Family | DX: I25.10 Atherosclerotic heart disease of native coronary artery without angina pectoris (principal); R07.89 Other chest pain; I11.0 Hypertensive heart disease with heart failure; I50.30 Unspecified diastolic (congestive) heart failure; E78.5 Hyperlipidemia, unspecified; Z95.5 Presence of coronary angioplasty implant and graft | CPT/HCPCS: 93005; 99212 ==

== ENCOUNTER 2024-04-11 07:42 | Outpatient (REF) | payer MEDICARE, MEDICAID, SELFPAY ==
[2024-04-11 08:23] LABS: Estimated Average Glucose 177 mg/dL; Hemoglobin A1c % 7.8 % (<6.0)
[2024-04-11 09:07] LABS: Alanine Aminotransferase 9 U/L (0-40); Albumin Level 3.8 g/dL (3.5-5.0); Alkaline Phosphatase 104 U/L (39-117); Anion Gap 12 (12-20); Aspartate Amino Transferase 11 U/L (5-37); Bilirubin Total 0.2 mg/dL (0.0-1.0); Blood Urea Nitrogen 26 mg/dL (9-16); Calcium 9.4 mg/dL (8.4-10.2); Carbon Dioxide 28 mmol/L (22-29); Chloride 108 mmol/L (96-108); Cholesterol 169 mg/dL (<200); Estimated Glomerular Filt Rate 55; Glucose Random 168 mg/dL (60-115); HDL Cholesterol 48 mg/dL (>40); LDL Cholesterol Calculated 102 mg/dL (<100); Phosphorus 3.6 mg/dL (2.7-4.5); Potassium 3.7 mmol/L (3.3-5.1); Sodium 144 mmol/L (135-145); Total Protein 7.5 g/dL (6.5-8.0); Triglycerides 96 mg/dL (<150)
[2024-04-11 09:16] LABS: Vitamin D 25-OH Total 35.3 ng/mL (>30)
== END 2024-04-11 07:43 | disposition home or self-care (01) ==
LOC: HO.LAB 07:42
PROVIDERS: PCP Internal Medicine; Visit Provider Internal Medicine
DX: E11.40 Type 2 diabetes mellitus with diabetic neuropathy, unspecified (principal); E11.65 Type 2 diabetes mellitus with hyperglycemia; E21.2 Other hyperparathyroidism; E78.00 Pure hypercholesterolemia, unspecified; R80.8 Other proteinuria
CPT/HCPCS: 36415; 80053; 80061; 82306; 83036; 84100

== ENCOUNTER 2024-05-06 15:41 | Outpatient (REF) | payer MEDICARE, MEDICAID, SELFPAY ==
--- NOTE | ~2024-05-06 | XR_ITS ---
EXAMINATION: XR CHEST CLINICAL INFORMATION: Right-sided thoracic pain, patient states pain on right side of thorax. COMPARISON: 09/05/2023. TECHNIQUE: 2 views of the chest were obtained. FINDINGS: Lung volumes are low. There is no gross pneumothorax. Heart size normal. Stable cardiomediastinal silhouette. Degenerative changes in the thoracic spine. No pleural effusion. No focal consolidation. XR/XR chest 2V IMPRESSION: No evidence of pneumonia.
== END 2024-05-06 15:42 | disposition home or self-care (01) ==
LOC: HO.XRAY 15:41
PROVIDERS: PCP Internal Medicine; Visit Provider Internal Medicine
DX: M54.6 Pain in thoracic spine (principal)
CPT/HCPCS: 71046

== ENCOUNTER 2024-05-07 17:37 | Observation (INO) | payer MEDICARE, MEDICAID, SELFPAY ==
--- NOTE | ~2024-05-07 | CT_ITS ---
EXAMINATION: CT ANGIOGRAM HEAD CT ANGIOGRAM NECK CLINICAL INFORMATION: Reason for Exam AMS, R upper arm/left weakness COMPARISON: CT head 05/18/2021 TECHNIQUE: Initial noncontrast marketing operations assistant imaging of the head and neck was performed. Comparison is made with noncontrast head CT from earlier today. Test bolus sequences followed by intravenous administration 70 mL of Omnipaque 350. Helical imaging was performed in the axial plane from the aortic arch to the skull vertex. Delayed postcontrast imaging of the head was also performed. The data was processed at the electroencephalograph technologist's workstation for generation of MIP sequences. Angled MIPs and volume rendered reformatted images were also generated at an offline 3D workstation. Stenoses are assessed in accordance with Aguilar et al. Quantification of Carotid Stenosis on CT Angiography. AJR 2006. 27(1):13-19. [address] CT examination was performed using dose optimization techniques as appropriate, variously including the following: *Automated exposure control *Adjustment of mA and/or kV according to patient size (this includes techniques or standardized protocols for targeted exams where dose is matched to indication/reason for exam; i.e. extremities or head) *Use of iterative reconstruction technique DLP: 1568 mGy-cm FINDINGS: CT HEAD: No abnormal intracranial enhancement is visualized. Please see separately dictated CT scan of the head for additional findings. CTA HEAD: Suboptimal secondary to significant intracranial venous contamination. Anterior circulation: Right internal carotid artery: Atherosclerosis without flow-limiting stenosis. Right middle cerebral artery: No hemodynamically significant stenosis. Right anterior cerebral artery: No hemodynamically significant stenosis. Left internal carotid artery: Atherosclerosis without flow-limiting stenosis Left middle cerebral artery: No hemodynamically significant stenosis. Left anterior cerebral artery: No hemodynamically significant stenosis. Posterior circulation: Right vertebral artery: No hemodynamically significant stenosis. Left vertebral artery: No hemodynamically significant stenosis. Basilar artery: No hemodynamically significant stenosis. Right posterior cerebral artery: origin. Patent. Left posterior cerebral artery: No hemodynamically significant stenosis. No high flow vascular malformation or significant aneurysmal dilatation is visualized. The major dural venous sinuses are grossly within normal limits given arterial technique. CTA NECK: Aortic arch: Normal anatomy. Atherosclerosis of the thoracic aorta and proximal great vessels with noncalcified plaque projecting into the descending aortic lumen. The great vessel origins/proximal segments are degraded by motion. Right common carotid artery: Proximally degraded by motion. Otherwise, atherosclerosis without flow-limiting stenosis. Right proximal internal carotid artery: Atherosclerosis with less than 50% luminal narrowing. Right mid/distal internal carotid artery: No hemodynamically significant stenosis. Left common carotid artery: Proximally degraded by motion. Otherwise, atherosclerosis without flow-limiting stenosis. Left proximal internal carotid artery: Suboptimal evaluation secondary to motion degradation. There is atherosclerosis with questionable focal area of up to 50% luminal narrowing. Left mid/distal internal carotid artery: No hemodynamically significant stenosis. Right vertebral artery: No hemodynamically significant stenosis. Left vertebral artery: The origin is obscured by motion, likely underlying stenosis. Otherwise, patent throughout the cervical course. CT NECK: The pulmonary artery is degraded by motion. Partially visualized coronary artery atherosclerotic calcification. Punctate calcification in the right parotid gland. Nonspecific prominence of the palatine tonsils. Scattered mucosal thickening in the paranasal sinuses. Multilevel degenerative changes of cervical spine with areas of probable severe canal stenosis. CT/CT angio head neck stroke IMPRESSION: CTA NECK: Suboptimal evaluation with motion degradation. There is questionable up to 50% luminal narrowing in the left proximal internal carotid artery. Correlation with carotid ultrasound is recommended. Multilevel degenerative changes of the cervical spine with areas of probable severe spinal canal stenosis and mass effect on the cervical spinal cord. Correlation with MRI of the cervical spine is recommended if there is symptomatology referrable to this region. CTA HEAD: Suboptimal secondary to intracranial venous contamination. Within this constraint, no proximal vessel occlusion or high-grade stenosis. This critical result was discussed with Dr. Johnson at 18:35 on 05/07/2024 and it was ascertained that the content and urgency of the report was understood at the time of direct communication.
--- NOTE | ~2024-05-07 | CT_ITS ---
EXAMINATION: CT HEAD WITHOUT CONTRAST (STROKE PROTOCOL) CLINICAL INFORMATION: Stroke protocol. Left arm and leg weakness COMPARISON: CT head 05/18/2021 TECHNIQUE: Contiguous axial imaging was performed from the skull base to vertex without intravenous administration of contrast. This CT examination was performed using dose optimization techniques as appropriate, variously including the following: *Automated exposure control *Adjustment of mA and/or kV according to patient size (this includes techniques or standardized protocols for targeted exams where dose is matched to indication/reason for exam; i.e. extremities or head) *Use of iterative reconstruction technique DLP: 1568 mGy-cm FINDINGS: There is no evidence of acute intracranial hemorrhage or edematous large vessel territorial infarction. No abnormal mass effect or midline shift is seen. Dan to white matter differentiation is well preserved. No abnormal extra-axial fluid collections are identified. Mild cerebral volume loss. Patchy deep white matter hypodensities suggesting chronic microangiopathic changes. No acute calvarial fracture. Paranasal sinuses and mastoid air cells are well-aerated. CT/CT head for stroke IMPRESSION: No CT evidence of acute intracranial hemorrhage or edematous large vessel territorial infarction. Chronic appearing changes, cerebral volume loss and deep white matter microangiopathy. A concurrent CTA head has been obtained, to be read by the neuroradiologist. This critical result was discussed with Dr. Johnson at 1814 hours on 05/07/2024. It was ascertained that the content and urgency of the report was understood at the time of direct communication.
--- NOTE | ~2024-05-07 | US_ITS ---
EXAMINATION: US EXTRACRANIAL CAROTID DUPLEX, BILATERAL CLINICAL INFORMATION: Stroke, carotid stenosis COMPARISON: CTA from 05/09/2024 TECHNIQUE: Real-time ultrasound and Doppler techniques (integrating B-mode 2-D vascular images, Doppler spectral analysis and color-flow Doppler imaging) were utilized to interrogate the extracranial carotid arteries, the vertebral arteries and proximal subclavian arteries bilaterally. The degree of stenosis is determined by criteria similar to NASCET. FINDINGS: Right Side: 1. There is mild atherosclerotic plaque seen in the bifurcation/proximal ICA region. 2. The common carotid artery PSV proximally is 70.8 cm/s and distally 66.3 cm/s. 3. The proximal internal carotid artery velocities are 86.9 cm/s systolic and 16.1 cm/s diastolic. 4. The proximal external carotid artery PSV is 90.4 cm/s. 5. The vertebral artery shows antegrade flow. 6. The subclavian artery waveforms are normal. Left Side: 1. There is mild atherosclerotic plaque seen in the bifurcation/proximal ICA region. 2. The common carotid artery PSV proximally is 80.1 cm/s and distally 85.7 cm/s. 3. The proximal internal carotid artery velocities are 98.8 cm/s systolic and 23.6 cm/s diastolic. 4. The proximal external carotid artery PSV is 125 cm/s. 5. The vertebral artery shows antegrade flow. 6. The subclavian artery waveforms are normal. US/US carotid duplex BI IMPRESSION: 1. RIGHT: Minimal, non-hemodynamically significant stenosis of the proximal right internal carotid artery corresponding to a 0-49% stenosis by velocity criteria. 2. LEFT: Minimal, non-hemodynamically significant stenosis of the proximal left internal carotid artery corresponding to a 0-49% stenosis by velocity criteria.
--- NOTE | 2024-05-07 17:47 | ED_ITS ---
HPI - Altered Mental Status General Chief Complaint: Stroke Stated Complaint: ams,unequal pupils,lkwt 55 mins Time Seen by Provider: 05/07/24 17:42 Source: EMS Mode of arrival: EMS Limitations: altered mental status History of Present Illness ED Provider: Dr. Whitney Johnson HPI narrative: Patient comes to the emergency room via ambulance. Approximately, at 16:40, patient woke up from a nap with altered mental status. According to the patient's , he is usually alert and oriented x3. Patient has history of strokes and epilepsy. Other than the time, the EMS crew states that they could not get any history from the patient or his , as the was extremely anxious, did not answer any further questions including medical history and medications. On arrival, patient is awake, seems confused/possibly postictal, not answering any questions or following any commands at all Related Data Home Medications ?Medication ?Instructions ?Recorded ?Confirmed aspirin 81 mg tablet,delayed 81 mg PO DAILY 08/12/20 04/09/24 release (Adult Low Dose Aspirin) pantoprazole 40 mg tablet,delayed 40 mg PO DAILY 08/12/20 04/09/24 release rosuvastatin 40 mg tablet 40 mg PO DAILY 08/12/20 04/09/24 blood sugar diagnostic #10 ea 09/15/20 04/09/24 spironolactone 25 mg tablet 25 mg PO DAILY 04/19/22 04/09/24 lancets 28 gauge (FreeStyle #100 ea 07/20/22 04/09/24 Lancets) empagliflozin 25 mg tablet 25 mg PO DAILY 03/11/24 04/09/24 (Jardiance) ezetimibe 10 mg tablet 10 mg PO DAILY 03/11/24 04/09/24 metoprolol succinate 100 mg 100 mg PO DAILY 03/11/24 04/09/24 tablet,extended release 24 hr pregabalin 300 mg capsule 300 mg PO BID 03/11/24 04/09/24 ezetimibe 10 mg tablet 10 mg PO DAILY 04/09/24 04/09/24 Previous Rx's ?Medication ?Instructions ?Recorded furosemide 80 mg tablet 80 mg PO BID #180 tabs 12/29/20 nitroglycerin 0.4 mg sublingual 0.4 mg sublingual .COMPLEX #75 tabs 02/19/21 tablet phenytoin sodium extended 100 mg 300 mg (3 x 100 mg) PO DAILY #30 05/19/21 capsule (Dilantin Extended) caps pen needle, diabetic 32 gauge x #150 ea 02/15/22 (BD Ultra-Fine Nicole Pen Needle) BD Nicole 2nd Gen Pen Needle 32 #200 ea 04/19/22 gauge x (pen needle, diabetic) insulin glargine 100 unit/mL (3 28 unit (0.28 mL) subcut DAILY #15 05/24/22 mL) subcutaneous pen (Basaglar mL KwikPen U-100 Insulin) Novolog FlexPen U-100 Insulin 100 See Rx Instructions subcut TID #15 08/15/22 unit/mL (3 mL) subcutaneous mL (insulin aspart U-100) cholecalciferol (vitamin D3) 25 25 mcg PO DAILY #30 caps 12/05/23 mcg (1,000 unit) capsule tamsulosin 0.4 mg capsule 0.4 mg PO DAILY 90 days #90 caps 12/19/23 isosorbide mononitrate 60 mg 60 mg PO DAILY #90 tabs 04/09/24 tablet,extended release 24 hr Allergies Allergy/AdvReac Type Severity Reaction Status Date / Time codeine [CODEINE] Allergy Unknown UNKNOWN Verified 05/07/24 18:13 lisinopril Allergy Unknown choking Uncoded 05/07/24 18:13 Review of Systems 2 Review of Systems: Yes Unobtainable due to mental status [facility] Past Medical History Medical History Mass of buttock Left buttock abscess Epidermal cyst Obesity due to excess calories CHF (congestive heart failure) Hypokalemia Diabetic nephropathy associated with type 2 diabetes mellitus CHF (congestive heart failure) Epilepsy Type 2 diabetes mellitus with hyperglycemia, with long-term current use of insulin Secondary hyperparathyroidism Diabetic neuropathy associated with type 2 diabetes mellitus CAD (coronary artery disease) (HFpEF) heart failure with preserved ejection fraction Hypertension Coronary stent patent BPH (benign prostatic hyperplasia) Dyslipidemia Neuropathy associated with endocrine disorder CKD (chronic kidney disease) Diabetes mellitus, type 2 Surgical History Stented coronary artery Hx of cardiac cath Family History Family History Father Diabetes CVD (cardiovascular disease) Mother Diabetes CVD (cardiovascular disease) Brother Diabetes Son Thyroid disease Lung disease Psoriasis HTN (hypertension) Social History Social History Household Members: Spouse and Family Housing: Apartment Do you presently have visiting nurse or other home services: No Alcohol intake: never Patient Tobacco Use Status: Former Tobacco user Advance Directives: No Advance Directives Information Provided: No Advance Directives Date on File: 05/18/21 service: No Current occupational status: retired Physical Exam ED Vital Signs: Vital Signs - 24 hr 05/07/24 18:12 05/07/24 20:26 Temperature 98.3 F 98.3 F Pulse Rate 70 70 Respiratory Rate 13 16 Blood Pressure 132/83 124/64 Pulse Oximetry 98 96 Oxygen Delivery Method Room Air BMI result Body Mass Index 30.3 Const Other: Appearance: Alert. No acute distress, seems confused, postictal, not following commands Eyes: Left pupil since slightly more dilated than the right pupil, left 3 mm versus right 2 mm ENT: Pharynx normal. Neck: Normal inspection. Neck supple. No lymph nodes noted. No crepitus CVS: Normal heart rate and rhythm. Pulses normal. Normal S1 and S2 Respiratory: No respiratory distress. Breath sounds normal. No Wheezing. No rales Abdomen: Soft and nontender. No rigidity. No distention. Skin: Skin warm and dry. Normal skin color. Normal skin turgor. Extremities: Bilateral lower extremity pitting edema +2 Neuro: Unable to participating cranial nerve assessment, NIH score difficult to assess since patient can not cooperate Psych: calm, Course Course Course Narrative: -patient will be taken to the CT scan to rule out brain bleed and CVA -after the CT/CTA, patient returned to the room, patient awake, alert, answering questions appropriately, no slurred speech, seems a bit confused, postictal. Patient has equal strength in both upper extremities and both lower extremities symmetrically, no mouth droop, no drifting. NIH score 0 Medications Administered Generic Name Dose Route Start Last Admin Trade Name Freq PRN Reason Stop Dose Admin Sodium Chloride 1,000 mls @ 999 mls/hr 05/07/24 20:23 05/07/24 20:50 Ns IVCONT 05/07/24 21:23 999 mls/hr .Q1H1M ONE Administration Discontinued Medications Generic Name Dose Route Start Last Admin Trade Name Bryson PRN Reason Stop Dose Admin Iohexol 100 ml 05/07/24 18:03 05/07/24 18:03 Iohexol 350 Mg/Ml 100 Ml Infus..Btl IV 05/07/24 18:04 70 ml ONCE ONE Administration Medical Decision Making Medical Decision Making [facility] Narrative: -my interpretation of EKG, normal sinus rhythm, heart rate 67, no ST segment depression or elevation, no T-wave inversion, QTC 439 -after patient returned to his room from the CT scan, patient was completely awake, alert and oriented x3, a bit confused but NIH score was 0. -given patient's presentation, patient likely was postictal secondary to a seizure. -I discussed the CT and CTA with our radiologist on-call, both CT and CTA do not show any acute abnormalities, the dry CT shows chronic appearing changes, no intracranial hemorrhage or edematous large vessel territorial infarction. CTA showed no obvious proximal vessel occlusion -patient received a dose of Keppra. -I discussed the patient with Dr. Raymundo from the Medicine team, patient being admitted for observation Differential Diagnosis Differential Diagnoses: The differential diagnosis associated with the presentation includes (Seizure versus TIA versus syncope) Admission/Observation Consideration of admission/observation: Escalation of care including admission/observation considered Consult Healthcare Provider Management of the patient was discussed with: Hospitalist Lab Data [facility] Lab Attestation statement: I reviewed the patient's lab results. 05/07/24 17:53 05/07/24 17:53 Labs: Lab Results 05/07/24 05/07/24 05/07/24 Range/Units 17:49 17:50 17:53 WBC 6.1 (4.8-10.8) X10*3/uL RBC 4.43 L (4.60-5.80) X10*6/uL Hgb 12.3 L (14.0-18.0) g/dl Hct 37.9 L (42.0-52.0) % MCV 85.6 (80.0-98.0) fL MCH 27.8 (27.0-33.0) pg MCHC 32.5 (31.0-36.0) g/dl RDW 15.5 (11.0-16.0) % Plt Count 197 (160-400) X10*3/uL MPV 10.8 (9.4-12.4) fL Immature Gran % (Auto) 0.8 H (0.0-0.4) % Neut % (Auto) 62.2 (45-73) % Lymph % (Auto) 21.8 (20-40) % [place] % (Auto) 12.4 H (2-11) % Eos % (Auto) 1.5 (0-4) % Baso % (Auto) 1.3 (0-2) % Lymph # (Auto) 1.3 (1.2-4.9) X10*3/uL [place] # (Auto) 0.8 (0.1-1.2) X10*3/uL Eos # (Auto) 0.1 (0.0-0.4) X10*3/uL Baso # (Auto) 0.1 (0.0-0.2) X10*3/uL Abs Immat Gran (auto) 0.05 H (0.00-0.03) X10*3/uL Absolute Neuts (auto) 3.8 (2.0-8.3) x10*3/uL Absolute Nucleated RBC 0.000 (0.0-0.012) X10*3/uL Nucleated RBC % (auto) 0.0 (0.0-0.2) /100WBC PT 12.8 (11.1-13.3) SEC Whole Blood PT 14.2 H (11.1-13.5) sec INR 1.1 (0.9-1.1) Whole Blood INR 1.2 H (0.9-1.1) Sodium 145 (135-145) mmol/L Potassium 3.6 (3.3-5.1) mmol/L Chloride 110 H (96-108) mmol/L Carbon Dioxide 25 (22-29) mmol/L Anion Gap 14 (12-20) BUN 28 H (9-16) mg/dL Creatinine 1.78 H (0.5-1.4) mg/dL Estim Creat Clear Calc 35.4 Estimated GFR 37 POC Glucose 187 H (60-115) mg/dL Random Glucose 218 H (60-115) mg/dL Calcium 9.3 (8.4-10.2) mg/dL Magnesium 2.4 (1.6-2.6) mg/dL Total Bilirubin 0.3 (0.0-1.0) mg/dL Direct Bilirubin 0.1 (0.0-0.5) mg/dL AST 14 (5-37) U/L ALT 8 (0-40) U/L Alkaline Phosphatase 99 (39-117) U/L Troponin I High Sens 5.2 D (<3.5-35.0) ng/L B-Natriuretic Peptide 40 (<100) pg/mL Total Protein 7.6 (6.5-8.0) g/dL Albumin 3.8 (3.5-5.0) g/dL Urine Color Urine Appearance Urine pH (5.0-9.0) Ur Specific Velva (1.005-1.025) Urine Protein (Neg-Trace) mg/dL Urine Glucose (UA) (Negative) mg/dL Urine Ketones (Negative) mg/dL Urine Blood (Negative) Urine Nitrite (Negative) Ur Leukocyte Esterase (Negative) Urine RBC (0-2) /HPF Urine WBC (0-5) /HPF Ur Squamous Epith Cells (0-2) /HPF Urine Bacteria (None Seen) Hyaline Casts (0-2) /LPF Urine Opiates Screen (Not Detect) Ur Buprenorphine Scrn (Not Detect) ng/mL Ur Oxycodone Screen (Not Detect) ng/mL Urine Methadone Screen (Not Detect) ng/mL Urine Fentanyl Screen (Not Detect) Ur Barbiturates Screen (Not Detect) Ur Phencyclidine Scrn (Not Detect) Ur Amphetamines Screen (Not Detect) U Benzodiazepines Scrn (Not Detect) Urine Cocaine Screen (Not Detect) U Marijuana (THC) Screen (Not Detect) Ethyl Alcohol < 10 mg/dL COVID-19 ([facility]) COVID-19 Clin Com Influenza Type A (AUDREY) Influenza Type B (AUDREY) Influenza A & B Note 05/07/24 05/07/24 Range/Units 18:30 20:29 WBC (4.8-10.8) X10*3/uL RBC (4.60-5.80) X10*6/uL Hgb (14.0-18.0) g/dl Hct (42.0-52.0) % MCV (80.0-98.0) fL MCH (27.0-33.0) pg MCHC (31.0-36.0) g/dl RDW (11.0-16.0) % Plt Count (160-400) X10*3/uL MPV (9.4-12.4) fL Immature Gran % (Auto) (0.0-0.4) % Neut % (Auto) (45-73) % Lymph % (Auto) (20-40) % [place] % (Auto) (2-11) % Eos % (Auto) (0-4) % Baso % (Auto) (0-2) % Lymph # (Auto) (1.2-4.9) X10*3/uL [place] # (Auto) (0.1-1.2) X10*3/uL Eos # (Auto) (0.0-0.4) X10*3/uL Baso # (Auto) (0.0-0.2) X10*3/uL Abs Immat Gran (auto) (0.00-0.03) X10*3/uL Absolute Neuts (auto) (2.0-8.3) x10*3/uL Absolute Nucleated RBC (0.0-0.012) X10*3/uL Nucleated RBC % (auto) (0.0-0.2) /100WBC PT (11.1-13.3) SEC Whole Blood PT (11.1-13.5) sec INR (0.9-1.1) Whole Blood INR (0.9-1.1) Sodium (135-145) mmol/L Potassium (3.3-5.1) mmol/L Chloride (96-108) mmol/L Carbon Dioxide (22-29) mmol/L Anion Gap (12-20) BUN (9-16) mg/dL Creatinine (0.5-1.4) mg/dL Estim Creat Clear Calc Estimated GFR POC Glucose (60-115) mg/dL Random Glucose (60-115) mg/dL Calcium (8.4-10.2) mg/dL Magnesium (1.6-2.6) mg/dL Total Bilirubin (0.0-1.0) mg/dL Direct Bilirubin (0.0-0.5) mg/dL AST (5-37) U/L ALT (0-40) U/L Alkaline Phosphatase (39-117) U/L Troponin I High Sens (<3.5-35.0) ng/L B-Natriuretic Peptide (<100) pg/mL Total Protein (6.5-8.0) g/dL Albumin (3.5-5.0) g/dL Urine Color Yellow Urine Appearance Clear Urine pH 5.5 (5.0-9.0) Ur Specific [place] >= 1.030 H (1.005-1.025) Urine Protein Negative (Neg-Trace) mg/dL Urine Glucose (UA) >=1000 H (Negative) mg/dL Urine Ketones Negative (Negative) mg/dL Urine Blood Negative (Negative) Urine Nitrite Negative (Negative) Ur Leukocyte Esterase Negative (Negative) Urine RBC 0-2 (0-2) /HPF Urine WBC 0-5 (0-5) /HPF Ur Squamous Epith Cells 0-2 (0-2) /HPF Urine Bacteria None Seen (None Seen) Hyaline Casts 0-2 (0-2) /LPF Urine Opiates Screen Not Detected (Not Detect) Ur Buprenorphine Scrn Not Detected (Not Detect) ng/mL Ur Oxycodone Screen Not Detected (Not Detect) ng/mL Urine Methadone Screen Not Detected (Not Detect) ng/mL Urine Fentanyl Screen Not Detected (Not Detect) Ur Barbiturates Screen Not Detected (Not Detect) Ur Phencyclidine Scrn Not Detected (Not Detect) Ur Amphetamines Screen Not Detected (Not Detect) U Benzodiazepines Scrn Not Detected (Not Detect) Urine Cocaine Screen Not Detected (Not Detect) U Marijuana (THC) Screen Not Detected (Not Detect) Ethyl Alcohol mg/dL COVID-19 ([facility]) Cancelled COVID-19 Clin Com Cancelled Influenza Type A (AUDREY) Cancelled Influenza Type B (AUDREY) Cancelled Influenza A & B Note Cancelled Independent Interpretation I performed an independent interpretation of an: CT Scan Radiology Impression Discussion of test interpretation with radiology: I have reviewed the radiologist's reading. Radiologist Impression: CT HEAD: No abnormal intracranial enhancement is visualized. Please see separately dictated CT scan of the head for additional findings. CTA HEAD: Suboptimal secondary to significant intracranial venous contamination. Anterior circulation: Right internal carotid artery: Atherosclerosis without flow-limiting stenosis. Right middle cerebral artery: No hemodynamically significant stenosis. Right anterior cerebral artery: No hemodynamically significant stenosis. Left internal carotid artery: Atherosclerosis without flow-limiting stenosis Left middle cerebral artery: No hemodynamically significant stenosis. Left anterior cerebral artery: No hemodynamically significant stenosis. Posterior circulation: Right vertebral artery: No hemodynamically significant stenosis. Left vertebral artery: No hemodynamically significant stenosis. Basilar artery: No hemodynamically significant stenosis. Right posterior cerebral artery: origin. Patent. Left posterior cerebral artery: No hemodynamically significant stenosis. No high flow vascular malformation or significant aneurysmal dilatation is visualized. The major dural venous sinuses are grossly within normal limits given arterial technique. CTA NECK: Aortic arch: Normal anatomy. Atherosclerosis of the thoracic aorta and proximal great vessels with noncalcified plaque projecting into the descending aortic lumen. The great vessel origins/proximal segments are degraded by motion. Right common carotid artery: Proximally degraded by motion. Otherwise, atherosclerosis without flow-limiting stenosis. Right proximal internal carotid artery: Atherosclerosis with less than 50% luminal narrowing. Right mid/distal internal carotid artery: No hemodynamically significant stenosis. Left common carotid artery: Proximally degraded by motion. Otherwise, atherosclerosis without flow-limiting stenosis. Left proximal internal carotid artery: Suboptimal evaluation secondary to motion degradation. There is atherosclerosis with questionable focal area of up to 50% luminal narrowing. Left mid/distal internal carotid artery: No hemodynamically significant stenosis. Right vertebral artery: No hemodynamically significant stenosis. Left vertebral artery: The origin is obscured by motion, likely underlying stenosis. Otherwise, patent throughout the cervical course. CT NECK: The pulmonary artery is degraded by motion. Partially visualized coronary artery atherosclerotic calcification. Punctate calcification in the right parotid gland. Nonspecific prominence of the palatine tonsils. Scattered mucosal thickening in the paranasal sinuses. Multilevel degenerative changes of cervical spine with areas of probable severe canal stenosis. CT/CT angio head neck stroke IMPRESSION: CTA NECK: Suboptimal evaluation with motion degradation. There is questionable up to 50% luminal narrowing in the left proximal internal carotid artery. Correlation with carotid ultrasound is recommended. Multilevel degenerative changes of the cervical spine with areas of probable severe spinal canal stenosis and mass effect on the cervical spinal cord. Correlation with MRI of the cervical spine is recommended if there is symptomatology referrable to this region. CTA HEAD: Suboptimal secondary to intracranial venous contamination. Within this constraint, no proximal vessel occlusion or high-grade stenosis. Critical Care Time Critical Care Time Critical Care Time: Yes Total Critical Care Time: 75 Attestation: I have personally provided critical care time. Time includes review of lab data, radiology results, discussion with consultants, and monitoring for potential decompensation. Intervention performed as documented. Discharge Plan Discharge Clinical Impression: Seizure Patient Disposition: Admitted As Inpatient Prescriptions: No Action furosemide 80 mg tablet 80 mg PO BID Qty: 180 1RF nitroglycerin 0.4 mg tablet, sublingual 0.4 mg sublingual .COMPLEX Qty: 75 3RF Rx Instructions: 0.4 mg sublingual One tab under the tongue every 5 minutes as needed for chest pain up to 3; Basaglar KwikPen U-100 Insulin 100 unit/mL (3 mL) insulin pen 28 unit subcut DAILY Qty: 15 4RF insulin aspart U-100 [Novolog FlexPen U-100 Insulin] 100 unit/mL (3 mL) insulin pen See Rx Instructions subcut TID Qty: 15 4RF Rx Instructions: 8 units for breakfast, 14 units for lunch, 10 units for dinner, 5 for snack + 2 units for bg over 200. subcut 3 times a day; tamsulosin 0.4 mg capsule 0.4 mg PO DAILY 90 Days Qty: 90 1RF phenytoin sodium extended [Dilantin Extended] 100 mg Capsule 300 mg PO DAILY Qty: 30 0RF (DME) blood sugar diagnostic Strip See Rx Instructions Not Applicable TID Qty: 10 Rx Instructions: As directed aspirin [Adult Low Dose Aspirin] 81 mg tablet,delayed release (DR/EC) 81 mg PO DAILY rosuvastatin 40 mg tablet 40 mg PO DAILY pantoprazole 40 mg tablet,delayed release (DR/EC) 40 mg PO DAILY (DME) pen needle, diabetic [BD Ultra-Fine Nicole Pen Needle] 32 gauge x 5/32 needle See Rx Instructions .ROUTE .MEDSUPPLY Qty: 150 11RF Rx Instructions: As directed five times a day spironolactone 25 mg tablet 25 mg PO DAILY (DME) pen needle, diabetic [BD Nicole 2nd Gen Pen Needle] 32 gauge x 5/32 needle See Rx Instructions .MEDSUPPLY Qty: 200 10RF Rx Instructions: 5 times a day (DME) lancets [FreeStyle Lancets] 28 gauge misc See Rx Instructions .ROUTE TID Qty: 100 Rx Instructions: As directed cholecalciferol (vitamin D3) 25 mcg (1,000 unit) capsule 25 mcg PO DAILY Qty: 30 3RF ezetimibe 10 mg tablet 10 mg PO DAILY isosorbide mononitrate 60 mg tablet extended release 24 hr 60 mg PO DAILY Qty: 90 3RF Rx Instructions: Dose increased ezetimibe 10 mg tablet 10 mg PO DAILY Jardiance 25 mg tablet 25 mg PO DAILY metoprolol succinate 100 mg tablet extended release 24 hr 100 mg PO DAILY pregabalin 300 mg capsule 300 mg PO BID Print Language: Sammarinese
--- NOTE | 2024-05-07 17:47 | ECG_ITS ---
Test Reason : STROKE Blood Pressure : / mmHG Vent. Rate : 067 BPM Atrial Rate : 067 BPM P-R Int : 240 ms QRS Dur : 088 ms QT Int : 416 ms P-R-T Axes : 000 022 070 degrees QTc Int : 439 ms Sinus rhythm with 1st degree A-V block Nonspecific T wave abnormality Abnormal ECG When compared with ECG of 05-SEP-2023 13:12, No significant change was found Referred By: Whitney Johnson Electronically Signed By:Michael Chappell
[2024-05-07 17:56] LABS: Prothrombin Time Whole Bld POC 14.2 sec (11.1-13.5); ~PT, ~INR - Anti Coag Clinic 1.2 (0.9-1.1)
[2024-05-07 17:57] LABS: Glucose, Whole Blood 187 mg/dL (60-115)
[2024-05-07 17:59] VITALS: BMI 30.3
[2024-05-07 17:59] LABS: MANUAL DIFF FLAG NO
[2024-05-07 18:00] VITALS: BP 163/84; PULSE 73; O2SAT 98
[2024-05-07] MEDS: iohexoL 350 MG/ML 100 ML INFUS..BTL IV (18:03)
[2024-05-07 18:12] VITALS: BP 132/83; PULSE 70; RESP 13; TEMP 36.8; O2SAT 98; BMI 30.3
[2024-05-07 18:16] LABS: INTERNATIONAL NORM RATIO 1.1 (0.9-1.1); Prothrombin Time 12.8 SEC (11.1-13.3)
[2024-05-07 18:17] LABS: Alanine Aminotransferase 8 U/L (0-40); Albumin Level 3.8 g/dL (3.5-5.0); Alkaline Phosphatase 99 U/L (39-117); Anion Gap 14 (12-20); Aspartate Amino Transferase 14 U/L (5-37); Bilirubin Direct 0.1 mg/dL (0.0-0.5); Bilirubin Total 0.3 mg/dL (0.0-1.0); Blood Urea Nitrogen 28 mg/dL (9-16); Calcium 9.3 mg/dL (8.4-10.2); Carbon Dioxide 25 mmol/L (22-29); Chloride 110 mmol/L (96-108); Creatinine Clr Calc Pharmacy 35.4; Estimated Glomerular Filt Rate 37; Ethanol < 10 mg/dL; Glucose Random 218 mg/dL (60-115); Magnesium 2.4 mg/dL (1.6-2.6); Potassium 3.6 mmol/L (3.3-5.1); Sodium 145 mmol/L (135-145); Total Protein 7.6 g/dL (6.5-8.0)
[2024-05-07 18:21] LABS: B Type Natriuretic Peptide 40 pg/mL (<100)
[2024-05-07 18:24] LABS: Basophils Absolute Auto 0.1 X10*3/uL (0.0-0.2); Basophils Percent Auto 1.3 % (0-2); Eosinophils Absolute Auto 0.1 X10*3/uL (0.0-0.4); Eosinophils Percent Auto 1.5 % (0-4); Hematocrit 37.9 % (42.0-52.0); Hemoglobin 12.3 g/dl (14.0-18.0); Imm Gran Abs Auto 0.05 X10*3/uL (0.00-0.03); Imm Gran Pct Auto 0.8 % (0.0-0.4); Lymphocytes Absolute Auto 1.3 X10*3/uL (1.2-4.9); Lymphocytes Percent Auto 21.8 % (20-40); Mean Corpuscular HGB Conc 32.5 g/dl (31.0-36.0); Mean Corpuscular Hemoglobin 27.8 pg (27.0-33.0); Mean Corpuscular Volume 85.6 fL (80.0-98.0); Mean Platelet Volume 10.8 fL (9.4-12.4); Monocytes Absolute Auto 0.8 X10*3/uL (0.1-1.2); Monocytes Percent Auto 12.4 % (2-11); Neutrophils Absolute Auto 3.8 x10*3/uL (2.0-8.3); Neutrophils Percent Auto 62.2 % (45-73); Platelet Count 197 X10*3/uL (160-400); Red Blood Count 4.43 X10*6/uL (4.60-5.80); Red Cell Distribution Width 15.5 % (11.0-16.0); Troponin-I High Sensitivity 5.2 ng/L (<3.5-35.0); White Blood Count 6.1 X10*3/uL (4.8-10.8)
[2024-05-07 20:26] VITALS: BP 124/64; PULSE 70; RESP 16; TEMP 36.8; O2SAT 96
[2024-05-07 20:36] LABS: Appearance Urine Clear; Color Urine Yellow; Glucose Urine UA >=1000 mg/dL (Negative); Leukocyte Esterase Urine Negative (Negative); Nitrite Urine Negative (Negative); PH 5.5 (5.0-9.0); Specific Gravity - Urine >= 1.030 (1.005-1.025); UMIC TRIGGER UACC YES; Urine Blood Negative (Negative); Urine Ketones Negative (Negative); Urine Protein Negative (Neg-Trace)
[2024-05-07 20:41] LABS: Bacteria Urine None Seen (None Seen); Hyaline Casts Urine 0-2 /LPF (0-2); RBC Urine 0-2 /HPF (0-2); Squamous Epithelial Cell Urine 0-2 /HPF (0-2); WBC Urine 0-5 /HPF (0-5)
[2024-05-07 20:46] LABS: Amphetamine Screen Urine Not Detected (Not Detect); Barbiturates, Urine Not Detected (Not Detect); Benzodiazepines Screen Urine Not Detected (Not Detect); Buprenorphine Scr Not Detected (Not Detect); Cannabinoid Screen Urine Not Detected (Not Detect); Cocaine Screen Urine Not Detected (Not Detect); Fentanyl, urine Not Detected (Not Detect); Methadone Screen, Urine Not Detected (Not Detect); Opiate Screen Urine Not Detected (Not Detect); Oxycodone Screen Urine Not Detected (Not Detect); Phencyclidine Screen Urine Not Detected (Not Detect)
[2024-05-07] MEDS: 0.9 % Sodium Chloride 1,000 ML 999 ML IVCONT (20:50)
[2024-05-07] MEDS: levETIRAcetam in NaCl (iso-os) 1,000 MG/100 ML PIGGYBACK 400 MG IV (20:58)
--- NOTE | 2024-05-07 21:44 | P.HPHOSP_ITS ---
History of Present Illness Date of Service: 05/07/24 Attending physician on admission: Errol Diamond Chief Complaint: Loss of consciousness Andres Weinstein is 84 years old man with past medical history significant for seizures on phenytoin, type 2 diabetes mellitus on insulin, essential hypertension, obstructive sleep apnea (not tolerating CPAP), CAD, dyslipidemia, CKD and CHF was brought to the emergency department via EMS after he had an event of loss of consciousness today around 4:30 PM. HPI was mostly provided by patient's and son who were at bedside. According to the patient was walking to the bathroom when suddenly he lost consciousness and had urinary incontinence. called her son for design assistant and EMS was contacted. stated that last time patient had a seizure event was long time ago and feel that to the events was not a seizure. The patient does not remember what happened. Son mentioned that yesterday the patient was evaluated by his primary care physician as Andres was complaining of right flank pain. It seems like his primary care physician felt the patient was having shingles and gave him a prescription of valganciclovir. He denied any headache, acute visual disturbances, nausea, vomiting, tongue biting, speech difficulty, focal weakness, chest pain, shortness of breath, fever, chills, cough or diarrhea. He only complained of constipation. Denied tobacco smoking, alcohol abuse or illicit drug use. In the ED, he was found to have normal vital signs. Blood workup showed no leukocytosis. Hemoglobin is at baseline and platelets are normal. INR is normal. There are no electrolyte imbalances. Creatinine is 1.78 (prior 1.26) and BUN is 28. Glucose is 218 and LFTs are normal. Troponin and BNP are normal. Urinalysis did not showed evidence of UTI. Urine drug screen is negative. ECG showed normal sinus rhythm, first-degree AV block and no obvious ischemic changes. Head CT scan showed no acute intracranial hemorrhage or edematous large vessel territorial infarction. Head and head CTA showed suboptimal evaluation with motion degradation: Questionable up to 50% luminal narrowing on the left proximal internal carotid artery and no high grade proximal vessel occlusion or high-grade stenosis. ED tx: Keppra 1 g IV, NS 1 L bolus Review of Systems 2 Review of Systems: All 12 systems were reviewed and normal except as noted in HPI. [facility] Medical History Mass of buttock Left buttock abscess Epidermal cyst Obesity due to excess calories CHF (congestive heart failure) Hypokalemia Diabetic nephropathy associated with type 2 diabetes mellitus CHF (congestive heart failure) Epilepsy Type 2 diabetes mellitus with hyperglycemia, with long-term current use of insulin Secondary hyperparathyroidism Diabetic neuropathy associated with type 2 diabetes mellitus CAD (coronary artery disease) (HFpEF) heart failure with preserved ejection fraction Hypertension Coronary stent patent BPH (benign prostatic hyperplasia) Dyslipidemia Neuropathy associated with endocrine disorder CKD (chronic kidney disease) Diabetes mellitus, type 2 Family History Father Diabetes CVD (cardiovascular disease) Mother Diabetes CVD (cardiovascular disease) Brother Diabetes Son Thyroid disease Lung disease Psoriasis HTN (hypertension) Surgical History Stented coronary artery Hx of cardiac cath Social History Household Members: Spouse and Family Housing: Apartment Do you presently have visiting nurse or other home services: No Alcohol intake: never Patient Tobacco Use Status: Former Tobacco user Advance Directives: No Advance Directives Information Provided: No Advance Directives Date on File: 05/18/21 service: No Current occupational status: retired [employer] Allergies Allergy/AdvReac Type Severity Reaction Status Date / Time codeine [CODEINE] Allergy Unknown UNKNOWN Verified 05/07/24 18:13 lisinopril Allergy Unknown choking Uncoded 05/07/24 18:13 Active Medications: Current Medications Acetaminophen (Acetaminophen 325 Mg Tablet) 975 mg PO Q6H PRN PRN Reason: Pain, Mild (Pain Scale 1-3), fever or headache Docusate Sodium (Docusate Sodium 100 Mg Capsule) 100 mg PO BID NAYA Heparin Sodium (Porcine) (Heparin Sodium,Porcine 5,000 Unit/Ml Vial) 5,000 unit SUBCUT Q12H NAYA Phenytoin Sodium (Phenytoin Sodium Extended 100 Mg Capsule) 200 mg PO ONCE STA Stop: 05/07/24 21:41 Senna (Sennosides 8.6 Mg Tablet) 17.2 mg PO BEDTIME NAYA Sodium Chloride (0.9 % Sodium Chloride Flush 3 Ml Syringe) 3 ml IVFLUSH QSHIFT NAYA Home Medications ?Medication ?Instructions ?Recorded ?Confirmed ?Last Taken ?Type aspirin 81 mg tablet,delayed 81 mg PO DAILY 08/12/20 04/09/24 Unknown History release (Adult Low Dose Aspirin) pantoprazole 40 mg tablet,delayed 40 mg PO DAILY 08/12/20 04/09/24 Unknown History release rosuvastatin 40 mg tablet 40 mg PO DAILY 08/12/20 04/09/24 Unknown History blood sugar diagnostic #10 ea 09/15/20 04/09/24 Unknown History spironolactone 25 mg tablet 25 mg PO DAILY 04/19/22 04/09/24 Unknown History lancets 28 gauge (FreeStyle #100 ea 07/20/22 04/09/24 Unknown History Lancets) empagliflozin 25 mg tablet 25 mg PO DAILY 03/11/24 04/09/24 Unknown History (Jardiance) ezetimibe 10 mg tablet 10 mg PO DAILY 03/11/24 04/09/24 Unknown History metoprolol succinate 100 mg 100 mg PO DAILY 03/11/24 04/09/24 Unknown History tablet,extended release 24 hr pregabalin 300 mg capsule 300 mg PO BID 03/11/24 04/09/24 Unknown History ezetimibe 10 mg tablet 10 mg PO DAILY 04/09/24 04/09/24 Unknown History Physical Exam 2 Vital Signs and Narrative: Vital Signs: Last Vital Signs Temp 98.3 F 05/07/24 20:26 Pulse 70 05/07/24 20:26 Resp 16 05/07/24 20:26 BP 124/64 05/07/24 20:26 Pulse Ox 96 05/07/24 20:26 O2 Del Method Room Air 05/07/24 18:12 BMI result Body Mass Index 30.3 Constitutional - Awake and Alert, No apparent distress HEENT - Atraumatic head, PERRL, EOMI Heart - RRR. Lung - Normal lung expansion, Normal respiratory effort, No respiratory distress, CTA bilaterally Abdomen - Mildly distended but depressible, +BS; No rebound or guarding - No CVA tenderness Extremities - no calf tenderness bilaterally, no swelling Musculoskeletal - Normal inspection, normal ROM Skin - Warm/Dry. No vesicles or rashes noted. Neurological - Alert & oriented x3, CN III-XII in tact, 5/ strength BUE and BLE Psychological - Appropriate affect Results Labs 05/07/24 17:53 05/07/24 17:53 Labs: Laboratory Results - last 24 hr 05/07/24 05/07/24 05/07/24 17:49 17:50 17:53 MCV 85.6 MCH 27.8 MCHC 32.5 RDW 15.5 Plt Count 197 MPV 10.8 Immature Gran % (Auto) 0.8 H Neut % (Auto) 62.2 Lymph % (Auto) 21.8 Isabella % (Auto) 12.4 H Eos % (Auto) 1.5 Baso % (Auto) 1.3 Lymph # (Auto) 1.3 Isabella # (Auto) 0.8 Eos # (Auto) 0.1 Baso # (Auto) 0.1 Abs Immat Gran (auto) 0.05 H Absolute Neuts (auto) 3.8 Absolute Nucleated RBC 0.000 Nucleated RBC % (auto) 0.0 PT 12.8 Whole Blood PT 14.2 H INR 1.1 Whole Blood INR 1.2 H Anion Gap 14 Estim Creat Clear Calc 35.4 Estimated GFR 37 POC Glucose 187 H Random Glucose 218 H Calcium 9.3 Magnesium 2.4 Total Bilirubin 0.3 Direct Bilirubin 0.1 AST 14 ALT 8 Alkaline Phosphatase 99 Troponin I High Sens 5.2 D B-Natriuretic Peptide 40 Total Protein 7.6 Albumin 3.8 Urine Color Urine Appearance Urine pH Ur Specific Industry Urine Protein Urine Glucose (UA) Urine Ketones Urine Blood Urine Nitrite Ur Leukocyte Esterase Urine RBC Urine WBC Ur Squamous Epith Cells Urine Bacteria Hyaline Casts Urine Opiates Screen Ur Buprenorphine Scrn Ur Oxycodone Screen Urine Methadone Screen Urine Fentanyl Screen Ur Barbiturates Screen Ur Phencyclidine Scrn Ur Amphetamines Screen U Benzodiazepines Scrn Urine Cocaine Screen U Marijuana (THC) Screen Ethyl Alcohol < 10 COVID-19 (ROMERO) COVID-19 Clin Com Influenza Type A (AUDREY) Influenza Type B (AUDREY) Influenza A & B Note 05/07/24 05/07/24 18:30 20:29 MCV MCH MCHC RDW Plt Count MPV Immature Gran % (Auto) Neut % (Auto) Lymph % (Auto) Isabella % (Auto) Eos % (Auto) Baso % (Auto) Lymph # (Auto) Isabella # (Auto) Eos # (Auto) Baso # (Auto) Abs Immat Gran (auto) Absolute Neuts (auto) Absolute Nucleated RBC Nucleated RBC % (auto) PT Whole Blood PT INR Whole Blood INR Anion Gap Estim Creat Clear Calc Estimated GFR POC Glucose Random Glucose Calcium Magnesium Total Bilirubin Direct Bilirubin AST ALT Alkaline Phosphatase Troponin I High Sens B-Natriuretic Peptide Total Protein Albumin Urine Color Yellow Urine Appearance Clear Urine pH 5.5 Ur Specific Industry >= 1.030 H Urine Protein Negative Urine Glucose (UA) >=1000 H Urine Ketones Negative Urine Blood Negative Urine Nitrite Negative Ur Leukocyte Esterase Negative Urine RBC 0-2 Urine WBC 0-5 Ur Squamous Epith Cells 0-2 Urine Bacteria None Seen Hyaline Casts 0-2 Urine Opiates Screen Not Detected Ur Buprenorphine Scrn Not Detected Ur Oxycodone Screen Not Detected Urine Methadone Screen Not Detected Urine Fentanyl Screen Not Detected Ur Barbiturates Screen Not Detected Ur Phencyclidine Scrn Not Detected Ur Amphetamines Screen Not Detected U Benzodiazepines Scrn Not Detected Urine Cocaine Screen Not Detected U Marijuana (THC) Screen Not Detected Ethyl Alcohol COVID-19 (ROMERO) Cancelled COVID-19 Clin Com Cancelled Influenza Type A (AUDREY) Cancelled Influenza Type B (AUDREY) Cancelled Influenza A & B Note Cancelled Imaging Radiologist's Impressions: Impressions Head CT 05/07/24 17:48 IMPRESSION: No CT evidence of acute intracranial hemorrhage or edematous large vessel territorial infarction. Chronic appearing changes, cerebral volume loss and deep white matter microangiopathy. A concurrent CTA head has been obtained, to be read by the neuroradiologist. This critical result was discussed with Dr. Johnson at 1814 hours on 05/07/2024. It was ascertained that the content and urgency of the report was understood at the time of direct communication. Head/Neck CTA 05/07/24 18:08 IMPRESSION: CTA NECK: Suboptimal evaluation with motion degradation. There is questionable up to 50% luminal narrowing in the left proximal internal carotid artery. Correlation with carotid ultrasound is recommended. Multilevel degenerative changes of the cervical spine with areas of probable severe spinal canal stenosis and mass effect on the cervical spinal cord. Correlation with MRI of the cervical spine is recommended if there is symptomatology referrable to this region. CTA HEAD: Suboptimal secondary to intracranial venous contamination. Within this constraint, no proximal vessel occlusion or high-grade stenosis. This critical result was discussed with Dr. Johnson at 18:35 on 05/07/2024 and it was ascertained that the content and urgency of the report was understood at the time of direct communication. Assessment and Plan (1) Loss of consciousness: Status: Acute (2) TIARA (obstructive sleep apnea): Status: Acute (3) Essential hypertension: Status: Acute (4) Type 2 diabetes mellitus with unspecified complications: Status: Acute Plan Andres Weinstein is 84 years old man with past medical history significant for seizures on phenytoin presents with: * Loss of consciousness: Seizure event versus syncope. Recently took valacyclovir (2 pills so far) for presumed shingles (this medication is possibly interfering with phenytoin level or decreasing seizures threshold. Observation. Telemetry. Continue treatment with phenytoin 200 mg p.o. b.i.d. Check phenytoin level. Recheck troponin. Check EEG and TTE. Fall and seizures precautions. * Constipation. Milk of magnesia, Senokot and Dulcolax. * Type 2 diabetes mellitus. BG checks before meals at bedtime. Insulin sliding scale and Jardiance. Diabetic diet. * Diabetic neuropathy. Continue pregabalin. * HFpEF. Currently euvolemic. Continue furosemide and metoprolol. * Hyperlipidemia. Continue rosuvastatin and ezetimibe. * Essential hypertension. Continue metoprolol and spironolactone. * Coronary artery disease, stage 3A. Continue aspirin, Isordil and statin. * Obstructive sleep apnea. Not tolerating CPAP. * Chronic anemia. Continue to monitor. Code status: Full Quality Stroke Does the patient have a stroke diagnosis?: No VTE Prior VTE?: No VTE Risk Level:: Medical - moderate - high VTE Device Contraindication: Treatment Not Indicated VTE Drug Contraindication: N/A - Med Ordered
[2024-05-07] MEDS: Milk of Magnesia 30 ML ORAL.SUSP PO (21:51)
[2024-05-07] MEDS: Phenytoin Sodium Extended 100 MG CAPSULE 200 MG PO (21:51)
[2024-05-07] MEDS: Docusate Sodium 100 MG CAPSULE PO (21:51)
[2024-05-07] MEDS: Sennosides 8.6 MG TABLET 17.2 MG PO (21:51)
--- NOTE | 2024-05-07 22:22 | PHA.MEDREC ---
Addendum entered by Ana Springer 05/08/24 16:29: follow up from yesterday. Spoke to patient and at bedside though Claims Adjudicator Service (Marcus) Patient's was able to confirm all meds. states Basaglar Kwikpen 100 unit/ml is 24 units at bedtime and Novolog flexpen 100 units/ml is 12-14 unit tid based on sugar levels. Patient says he takes Phenytoin sod extended 200 mg bid. patient also confirmed Tamsulosin 0.4 mg daily. Original Note: Pharmacy Consult ? Medication Reconciliation Pharmacy has completed the medication reconciliation. Couldn't wake patient up from sleep so most of med rec was done through pharmacy claims. Will call patient's family tomorrow to confirm insulin doses and if pt is still taking tamsulosin (communicated with Dr. Zackary Diamond about this).
[2024-05-07 22:25] VITALS: BP 124/70; PULSE 67; RESP 19; TEMP 36.6; O2SAT 96
[2024-05-07 22:34] LABS: Glucose, Whole Blood 147 mg/dL (60-115)
[2024-05-07 22:44] LABS: Phenytoin Dilantin 14.9 ug/mL (10.0-20.0)
[2024-05-08] MEDS: 0.9 % Sodium Chloride Flush 3 ML SYRINGE IVFLUSH ×3 (00:56→14:17)
[2024-05-08 04:43] LABS: MANUAL DIFF FLAG NO
[2024-05-08 04:45] LABS: Basophils Absolute Auto 0.1 X10*3/uL (0.0-0.2); Basophils Percent Auto 0.8 % (0-2); Eosinophils Absolute Auto 0.2 X10*3/uL (0.0-0.4); Eosinophils Percent Auto 1.9 % (0-4); Hematocrit 37.2 % (42.0-52.0); Hemoglobin 11.9 g/dl (14.0-18.0); Imm Gran Abs Auto 0.01 X10*3/uL (0.00-0.03); Imm Gran Pct Auto 0.1 % (0.0-0.4); Lymphocytes Absolute Auto 2.2 X10*3/uL (1.2-4.9); Mean Corpuscular Hemoglobin 27.7 pg (27.0-33.0); Mean Corpuscular Volume 86.7 fL (80.0-98.0); Mean Platelet Volume 10.8 fL (9.4-12.4); Monocytes Absolute Auto 0.9 X10*3/uL (0.1-1.2); Monocytes Percent Auto 11.1 % (2-11); Neutrophils Absolute Auto 4.6 x10*3/uL (2.0-8.3); Neutrophils Percent Auto 58.1 % (45-73); Platelet Count 181 X10*3/uL (160-400); Red Blood Count 4.29 X10*6/uL (4.60-5.80); Red Cell Distribution Width 15.8 % (11.0-16.0); White Blood Count 7.9 X10*3/uL (4.8-10.8)
[2024-05-08 05:05] LABS: Anion Gap 13 (12-20); Blood Urea Nitrogen 27 mg/dL (9-16); Calcium 9.1 mg/dL (8.4-10.2); Carbon Dioxide 23 mmol/L (22-29); Chloride 114 mmol/L (96-108); Creatinine Clr Calc Pharmacy 42.6; Estimated Glomerular Filt Rate 45; Glucose Random 129 mg/dL (60-115); Potassium 3.8 mmol/L (3.3-5.1); Sodium 146 mmol/L (135-145)
[2024-05-08 05:15] LABS: Troponin-I High Sensitivity 5.5 ng/L (<3.5-35.0)
--- NOTE | 2024-05-08 07:00 | CA_ITS ---
Transthoracic Echocardiogram Patient (Last, First, Middle): Andres Weinstein, Gender: Male Date of : 1940 Age: 84 Procedure Date: 05/08/2024 Procedure Type: Transthoracic Echocardiogram Location: ER Height: 175.26 cm Weight: 92.99 kg BSA: 2.09 m2 Heart Rate: bpm BP: 124 / 70 mmHg [employer]: Referring MD: Errol Diamond MD Symptoms: Syncope Study Quality: Fair ECG Rhythm: Sinus Conclusions: - Normal left ventricular cavity size. There is moderately increased left ventricular wall thickness. The left ventricular systolic function is hyperdynamic. The visually estimated ejection fraction is >70%. - Normal right ventricular cavity size and systolic function. - There is mild dilatation of the ascending aorta measuring 4.00 cm. Findings Left Ventricle Normal left ventricular cavity size. There is moderately increased left ventricular wall thickness. The left ventricular systolic function is hyperdynamic. The visually estimated ejection fraction is >70%. Abnormal diastolic function is noted. Spectral Doppler is indicative of an impaired relaxation filling pattern. E/E prime ratio is between 8 and 15 consistent with indeterminate filling pressures. Right Ventricle Normal right ventricular cavity size and systolic function. Atria The left atrium is mildly dilated. Aortic Valve Normal aortic valve structure and function. There is no aortic valve stenosis. There is no aortic valve regurgitation. Mitral Valve There is moderate mitral annular calcification. There is no mitral valve regurgitation. There is no mitral valve stenosis. Pulmonic Valve The pulmonic valve is normal. There is no pulmonic valve regurgitation. Tricuspid Valve Normal tricuspid valve structure. There is trace tricuspid valve regurgitation. Normal right atrial pressure. There is no evidence of pulmonary hypertension. Great Vessels There is mild dilatation of the ascending aorta measuring 4.00 cm. The visualized portions of the pulmonary artery and branches are normal. Venous The inferior vena cava is normal in size and collapses greater than 50% with inspiration. Pericardium/Pleural There is no evidence of pericardial effusion. Prior Study Comparison Changes noted compared to prior study dated: 06/08/2022. Hyperdynamic LV, mild aortic dilation 4 cm. Measurements 2D Linear Measurements IVSd: 1.42 0.6-0.9/0.6-1.0 cm LVIDd: 4.76 3.9-5.3/4.2-5.9 cm LVIDd Index: 2.28 2.4-3.2/2.2-3.1 cm/m2 LVIDs: 3.05 2.0-3.6 cm LVPWd: 1.45 0.7-1.1 cm Ao Root: 3.80 2.1-3.5 cm LA Diam: 4.00 2.7-3.8/3.0-4.0 cm LAIDs Index: 1.91 1.5-2.3 cm/m2 LV Mass: 349.80 67-162/88-224 g LV Mass Index: 167.37 43-95/49-115 g/m2 LVOT Diam: 2.50 3.0+(-)1.3 cm Mitral Valve MV VTI: 0.33 MV Pk Jaime: 0.89 MV Mn Jaime: 0.54 MV Pk Grad: 3.00 MV Mn Grad: 1.00 MV Pk E: 0.80 MV PK A: 0.89 MV Decel Time: 225.00 E/A: 0.90 E'Lateral: 5.87 E'Medial: 5.22 E/E' Med: 15.20 E/E' Lat: 13.60 PHT: 66.00 MVA PHT: 3.33 MVA Continuity: 2.48 Decel Mercer: 3.53 Aortic Valve AoV Pk Jaime: 0.91 AoV Mn Jaime: 0.62 AoV VTI: 0.22 AoV Pk Grad: 3.00 Aov Mn Grad: 2.00 YAS Cont.VTI: 3.79 LVOT LVOT Pk Jaime: 0.68 LVOT Mn Jaime: 0.40 LVOT VTI: 0.17 LVOT Pk Grad: 2.00 LVOT Mn Grad: 1.00 LVOT Diam: 2.50 LVOT Area: 4.91 Diastolic Function MV Pk E: 0.80 MV Pk A: 0.89 E/A: 0.90 E'Medial: 5.22 E/E' Med: 15.20 E' Laterial: 5.87 E/E' Lat: 13.60 Right Ventricle TAPSE (mm): 22.00 Tricuspid Valve TR Pk Jaime: 2.08 TR Pk Grad: 17.00 RA Press: 3.00 RVSP: 20.00 Great Vessels Aorta Ao Root-2D: 3.80 2.0-3.7 cm Ao Asc: 4.00 2.1-3.4 cm Pulmonary Valve PV Pk Jaime: 0.80 Peak PV Grad: 3.00 Updated in Other Vendor System with Status of Final Michael Chappell MD electronically signed on 05/08/2024 11:38:37 AM with status of Final
[2024-05-08 07:31] LABS: Glucose, Whole Blood 132 mg/dL (60-115)
[2024-05-08 08:27] VITALS: BP 153/55; PULSE 58; RESP 14; O2SAT 99
--- NOTE | 2024-05-08 08:28 | PC.NURSE ---
Echo at bedside
--- NOTE | 2024-05-08 08:51 | MHC.CM.PN ---
CM attempted to meet with Patient at bedside, in the ED, but he was receiving bedside testing; CM spoke with Son/Andres at listed # and addressed RESENDIZ with him (original will be mailed to Son and a copy will be placed on the chart). Patient lives in an apartment with his /HCP/Iris and he uses a walker to assist with mobility (no home CPAP). 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 CM has initiated and will follow for dc planning. PCP is Dr. Pushpa Ruvalcaba.
[2024-05-08] MEDS: Heparin Sodium,Porcine 5,000 UNIT/ML VIAL 5000 UNIT SUBCUT (09:48)
[2024-05-08] MEDS: Docusate Sodium 100 MG CAPSULE PO (09:50)
--- NOTE | 2024-05-08 09:57 | PC.NURSE ---
Pt awake at this time, ready to eat breakfast. Denies any pain or symptoms. NSR on cardiac rn. Medicated per MAR
[2024-05-08 10:51] VITALS: BP 147/83; PULSE 70; RESP 18; TEMP 36.4; O2SAT 99
[2024-05-08 11:22] LABS: Glucose, Whole Blood 248 mg/dL (60-115)
[2024-05-08] MEDS: Insulin Lispro 100 UNIT/ML 3 ML VIAL SUBCUT (14:16)
[2024-05-08 15:29] VITALS: BP 148/88; PULSE 59; RESP 18; TEMP 36; O2SAT 98
--- NOTE | 2024-05-08 15:45 | PM.NEUROCN ---
History of Present Illness Data of Consult Service Date: 05/08/24 Primary Care Provider: MD RAFFAELE Ambriz Reason for consult: Seizure disorder 84 years old man with underlying history of seizure disorder passed out and urinated and was brought to emergency room. I would noticed that he had multiple investigations including CT, CTA of brain and neck and carotid ultrasound not revealing any acute abnormality. Now he was feeling better. Review of Systems Review of Systems: No recent cold or flu-like illness PMFSH Past Medical History Medical History Mass of buttock Left buttock abscess Epidermal cyst Obesity due to excess calories CHF (congestive heart failure) Hypokalemia Diabetic nephropathy associated with type 2 diabetes mellitus CHF (congestive heart failure) Epilepsy Type 2 diabetes mellitus with hyperglycemia, with long-term current use of insulin Secondary hyperparathyroidism Diabetic neuropathy associated with type 2 diabetes mellitus CAD (coronary artery disease) (HFpEF) heart failure with preserved ejection fraction Hypertension Coronary stent patent BPH (benign prostatic hyperplasia) Dyslipidemia Neuropathy associated with endocrine disorder CKD (chronic kidney disease) Diabetes mellitus, type 2 Family History Family History Father Diabetes CVD (cardiovascular disease) Mother Diabetes CVD (cardiovascular disease) Brother Diabetes Son Thyroid disease Lung disease Psoriasis HTN (hypertension) Surgical History Surgical History Stented coronary artery Hx of cardiac cath Social History Social History Household Members: Spouse, Family and Children Housing: Apartment Do you presently have visiting nurse or other home services: No Alcohol intake: never Patient Tobacco Use Status: Former Tobacco user Advance Directives Date on File: 05/18/21 service: No Current occupational status: retired Meds Allergies Allergy/AdvReac Type Severity Reaction Status Date / Time codeine [CODEINE] Allergy Unknown UNKNOWN Verified 05/07/24 18:13 lisinopril Allergy Unknown choking Uncoded 05/07/24 18:13 Active Medications: Current Medications Acetaminophen (Acetaminophen 325 Mg Tablet) 975 mg PO Q6H PRN PRN Reason: Pain, Mild (Pain Scale 1-3), fever or headache Aspirin (Aspirin Enteric Coated 81 Mg Tablet.) 81 mg PO DAILY [facility] Docusate Sodium (Docusate Sodium 100 Mg Capsule) 100 mg PO BID [facility] Last Admin: 05/08/24 09:50 Dose: 100 mg Ezetimibe (Ezetimibe 10 Mg Tablet) 10 mg PO DAILY [facility] Glucose (Glucose Gel 15 Gm Gel..Gram.) 15 gm PO Q15M PRN; Protocol PRN Reason: per Hypoglycemia Standing Ord. Heparin Sodium (Porcine) (Heparin Sodium,Porcine 5,000 Unit/Ml Vial) 5,000 unit SUBCUT Q12H [facility] Last Admin: 05/08/24 09:48 Dose: 5,000 unit Dextrose (D10) 250 mls @ 750 mls/hr IV Q15M PRN; Protocol PRN Reason: per Hypoglycemia Standing Ord. Insulin Human Lispro (Insulin Lispro 100 Unit/Ml 3 Ml Vial) 0 unit SUBCUT QIDACHS [facility]; Protocol Last Admin: 05/08/24 14:16 Dose: 4 unit Isosorbide Mononitrate (Isosorbide Mononitrate 60 Mg Tab.Er.24h) 60 mg PO DAILY [facility]; Protocol Metoprolol Succinate (Metoprolol Succinate Er 100 Mg Tab.Er.24h) 100 mg PO DAILY [facility]; Protocol Pregabalin (Pregabalin 150 Mg Capsule) 300 mg PO BID [facility] Senna (Sennosides 8.6 Mg Tablet) 17.2 mg PO BEDTIME [facility] Last Admin: 05/07/24 21:51 Dose: 17.2 mg Sodium Chloride (0.9 % Sodium Chloride Flush 3 Ml Syringe) [facility] Last Admin: 05/08/24 14:17 Dose: 3 ml Home Medications ?Medication ?Instructions ?Recorded ?Confirmed ?Last Taken ?Type aspirin 81 mg tablet,delayed 81 mg PO DAILY 08/12/20 05/07/24 Unknown History release (Adult Low Dose Aspirin) pantoprazole 40 mg tablet,delayed 40 mg PO DAILY 08/12/20 05/07/24 Unknown History release rosuvastatin 40 mg tablet 40 mg PO DAILY 08/12/20 05/07/24 Unknown History blood sugar diagnostic #10 ea 09/15/20 04/09/24 Unknown History spironolactone 25 mg tablet 25 mg PO DAILY 04/19/22 05/07/24 Unknown History lancets 28 gauge (FreeStyle #100 ea 07/20/22 04/09/24 Unknown History Lancets) empagliflozin 25 mg tablet 25 mg PO DAILY 03/11/24 05/07/24 Unknown History (Jardiance) ezetimibe 10 mg tablet 10 mg PO DAILY 03/11/24 05/07/24 Unknown History metoprolol succinate 100 mg 100 mg PO DAILY 03/11/24 05/07/24 Unknown History tablet,extended release 24 hr pregabalin 300 mg capsule 300 mg PO BID 03/11/24 05/07/24 Unknown History phenytoin sodium extended 100 mg 200 mg PO BID 05/07/24 05/07/24 Unknown History capsule (Dilantin Extended) Physical Exam Vital Signs: Vital Signs: Last Vital Signs Temp 96.8 F 05/08/24 15:29 Pulse 59 05/08/24 15:29 Resp 18 05/08/24 15:29 BP 148/88 H 05/08/24 15:29 Pulse Ox 98 05/08/24 15:29 O2 Del Method Room Air 05/08/24 15:29 BMI result Body Mass Index 30.3 Neuro: Other: He is alert and awake with normal spontaneity of speech fluency comprehension and affect. Face is symmetrical. Visual qureshi are full. There is no obvious focal arm or leg weakness. Plantars are flexor. Speech is normal. Results Labs 05/08/24 04:32 05/08/24 04:32 Labs: Short CBC 05/07/24 05/08/24 Range/Units 17:53 04:32 WBC 6.1 7.9 (4.8-10.8) X10*3/uL Hgb 12.3 L 11.9 L (14.0-18.0) g/dl Hct 37.9 L 37.2 L (42.0-52.0) % Plt Count 197 181 (160-400) X10*3/uL BMP 05/07/24 05/08/24 17:53 04:32 Sodium 145 146 H Potassium 3.6 3.8 Chloride 110 H 114 H Carbon Dioxide 25 23 BUN 28 H 27 H Creatinine 1.78 H 1.48 H Calcium 9.3 9.1 Liver Function 05/07/24 Range/Units 17:53 Total Bilirubin 0.3 (0.0-1.0) mg/dL Direct Bilirubin 0.1 (0.0-0.5) mg/dL AST 14 (5-37) U/L ALT 8 (0-40) U/L Alkaline Phosphatase 99 (39-117) U/L Albumin 3.8 (3.5-5.0) g/dL Urine 05/07/24 Range/Units 20:29 Urine Color Yellow Urine Appearance Clear Urine pH 5.5 (5.0-9.0) Ur Specific [place] >= 1.030 H (1.005-1.025) Urine Protein Negative (Neg-Trace) mg/dL Urine Glucose (UA) >=1000 H (Negative) mg/dL Head CT revealed diffuse moderately severe cerebral and cerebellar atrophy. Vascular imaging did not reveal any vascular stenosis. Assessment and Plan (1) Seizure: Status: Acute 84 years old man with significant underlying cerebral atrophy that sometime could result from genetic cause and sometime from excessive alcohol drinking. He also had multiple other medical issues. He was treated for seizure disorder with Dilantin and was brought to hospital after he passed out any urinated. Other than seizure, no obvious explanation is found. His Dilantin level was therapeutic. My recommendation is to add levetiracetam 250 mg twice a day to his regimen. Procedures Date of Service Date of Service: 05/08/24
[2024-05-08 16:17] LABS: Glucose, Whole Blood 134 mg/dL (60-115)
--- NOTE | 2024-05-08 16:20 | PM.DS ---
DS: Providers Provider Date of Service: 05/09/24 Date of admission: 05/07/24 21:22 Primary care physician: Pushpa Ruvalcaba MD DS: Diagnosis Discharge Diagnosis (1) Seizure: Status: Acute DS: Summary Hospital Course Hospital Course: History of presenting illness: Date of Service: 05/07/24 Attending physician on admission: Errol Diamond Chief Complaint: Loss of consciousness Andres Weinstein is 84 years old man with past medical history significant for seizures on phenytoin, type 2 diabetes mellitus on insulin, essential hypertension, obstructive sleep apnea (not tolerating CPAP), CAD, dyslipidemia, CKD and CHF was brought to the emergency department via EMS after he had an event of loss of consciousness today around 4:30 PM. HPI was mostly provided by patient's and son who were at bedside. According to the patient was walking to the bathroom when suddenly he lost consciousness and had urinary incontinence. called her son for cancer genetics assistant and EMS was contacted. stated that last time patient had a seizure event was long time ago and feel that to the events was not a seizure. The patient does not remember what happened. Son mentioned that yesterday the patient was evaluated by his primary care physician as Andres was complaining of right flank pain. It seems like his primary care physician felt the patient was having shingles and gave him a prescription of valganciclovir. He denied any headache, acute visual disturbances, nausea, vomiting, tongue biting, speech difficulty, focal weakness, chest pain, shortness of breath, fever, chills, cough or diarrhea. He only complained of constipation. Denied tobacco smoking, alcohol abuse or illicit drug use. In the ED, he was found to have normal vital signs. Blood workup showed no leukocytosis. Hemoglobin is at baseline and platelets are normal. INR is normal. There are no electrolyte imbalances. Creatinine is 1.78 (prior 1.26) and BUN is 28. Glucose is 218 and LFTs are normal. Troponin and BNP are normal. Urinalysis did not showed evidence of UTI. Urine drug screen is negative. ECG showed normal sinus rhythm, first-degree AV block and no obvious ischemic changes. Head CT scan showed no acute intracranial hemorrhage or edematous large vessel territorial infarction. Head and head CTA showed suboptimal evaluation with motion degradation: Questionable up to 50% luminal narrowing on the left proximal internal carotid artery and no high grade proximal vessel occlusion or high-grade stenosis. ED tx: Keppra 1 g IV, NS 1 L bolus Hospital course: Andres Weinstein 84 years old man with past medical history significant for seizures on phenytoin presents with an episode of syncope, question breakthrough seizure, with underlying history of seizure disorder on phenytoin and was recently placed on valacyclovir for presumed shingles, tele monitor showed no arrhythmia, noted to have mild acute on ckd 3 treated with IV fluids, phenytoin level within normal range, troponin flat, stable blood sugars, and blood pressures, patient noted to have no recurrent seizures, case discussed with son who feels patient is at his baseline, family declined PT eval patient ambulates at home with a walker therefore he is being discharged home on all of his baseline medications, except spironolactone , Jardiance and Valtrex has been discontinued Recommend to continue all other medications for diabetes mellitus with diabetic neuropathy, hyperlipidemia and for coronary artery disease. Time Attestation Discharge Coordination Time (in mins): 38 Quality: Safe Use of Opioids Does Pt have an Active Cancer Diagnosis on the Problem List?: No Quality: Stroke Does the patient have a stroke diagnosis?: No Physical Exam Vital Signs: Vital Signs: Last Vital Signs Temp 96.8 F 05/08/24 15:29 Pulse 59 05/08/24 15:29 Resp 18 05/08/24 15:29 BP 148/88 H 05/08/24 15:29 Pulse Ox 98 05/08/24 15:29 O2 Del Method Room Air 05/08/24 15:29 BMI result Body Mass Index 30.3 Const: Other: General awake alert, in no acute distress. Neck is supple no JVD. CVS regular rate rhythm, Respiratory lungs clear to auscultation, no respiratory distress, no wheeze, no rhonchi. Gastrointestinal abdomen soft, non tender, bowel sounds audible, no guarding , no rigidity. Extremities no edema. Neuro non focal , speech clear, pleasantly confused. Skin no rash DS: Data Data Completed and Pending Completed studies during hospitalization [Text1]: Procedures Insertion of Endotracheal Airway into Trachea, Via Natural or Artificial Opening Endoscopic (05/18/21) Respiratory Ventilation, Less than 24 Consecutive Hours (05/18/21) Labs on day of discharge: Laboratory Results - last 24 hr 05/07/24 05/07/24 05/07/24 17:49 17:50 17:53 WBC 6.1 RBC 4.43 L Hgb 12.3 L Hct 37.9 L MCV 85.6 MCH 27.8 MCHC 32.5 RDW 15.5 Plt Count 197 MPV 10.8 Immature Gran % (Auto) 0.8 H Neut % (Auto) 62.2 Lymph % (Auto) 21.8 [place] % (Auto) 12.4 H Eos % (Auto) 1.5 Baso % (Auto) 1.3 Lymph # (Auto) 1.3 [place] # (Auto) 0.8 Eos # (Auto) 0.1 Baso # (Auto) 0.1 Abs Immat Gran (auto) 0.05 H Absolute Neuts (auto) 3.8 Absolute Nucleated RBC 0.000 Nucleated RBC % (auto) 0.0 PT 12.8 Whole Blood PT 14.2 H INR 1.1 Whole Blood INR 1.2 H Sodium 145 Potassium 3.6 Chloride 110 H Carbon Dioxide 25 Anion Gap 14 BUN 28 H Creatinine 1.78 H Estim Creat Clear Calc 35.4 Estimated GFR 37 POC Glucose 187 H Random Glucose 218 H Calcium 9.3 Magnesium 2.4 Total Bilirubin 0.3 Direct Bilirubin 0.1 AST 14 ALT 8 Alkaline Phosphatase 99 Troponin I High Sens 5.2 D B-Natriuretic Peptide 40 Total Protein 7.6 Albumin 3.8 Urine Color Urine Appearance Urine pH Ur Specific [place] Urine Protein Urine Glucose (UA) Urine Ketones Urine Blood Urine Nitrite Ur Leukocyte Esterase Urine RBC Urine WBC Ur Squamous Epith Cells Urine Bacteria Hyaline Casts Urine Opiates Screen Ur Buprenorphine Scrn Ur Oxycodone Screen Urine Methadone Screen Urine Fentanyl Screen Ur Barbiturates Screen Phenytoin Ur Phencyclidine Scrn Ur Amphetamines Screen U Benzodiazepines Scrn Urine Cocaine Screen U Marijuana (THC) Screen Ethyl Alcohol < 10 COVID-19 ([facility]) COVID-19 Clin Com Influenza Type A (AUDREY) Influenza Type B (AUDREY) Influenza A & B Note 05/07/24 05/07/24 05/07/24 18:30 20:29 22:20 WBC RBC Hgb Hct MCV MCH MCHC RDW Plt Count MPV Immature Gran % (Auto) Neut % (Auto) Lymph % (Auto) [place] % (Auto) Eos % (Auto) Baso % (Auto) Lymph # (Auto) [place] # (Auto) Eos # (Auto) Baso # (Auto) Abs Immat Gran (auto) Absolute Neuts (auto) Absolute Nucleated RBC Nucleated RBC % (auto) PT Whole Blood PT INR Whole Blood INR Sodium Potassium Chloride Carbon Dioxide Anion Gap BUN Creatinine Estim Creat Clear Calc Estimated GFR POC Glucose Random Glucose Calcium Magnesium Total Bilirubin Direct Bilirubin AST ALT Alkaline Phosphatase Troponin I High Sens B-Natriuretic Peptide Total Protein Albumin Urine Color Yellow Urine Appearance Clear Urine pH 5.5 Ur Specific [place] >= 1.030 H Urine Protein Negative Urine Glucose (UA) >=1000 H Urine Ketones Negative Urine Blood Negative Urine Nitrite Negative Ur Leukocyte Esterase Negative Urine RBC 0-2 Urine WBC 0-5 Ur Squamous Epith Cells 0-2 Urine Bacteria None Seen Hyaline Casts 0-2 Urine Opiates Screen Not Detected Ur Buprenorphine Scrn Not Detected Ur Oxycodone Screen Not Detected Urine Methadone Screen Not Detected Urine Fentanyl Screen Not Detected Ur Barbiturates Screen Not Detected Phenytoin 14.9 Ur Phencyclidine Scrn Not Detected Ur Amphetamines Screen Not Detected U Benzodiazepines Scrn Not Detected Urine Cocaine Screen Not Detected U Marijuana (THC) Screen Not Detected Ethyl Alcohol COVID-19 (ROMERO) Cancelled COVID-19 Clin Com Cancelled Influenza Type A (AUDREY) Cancelled Influenza Type B (AUDREY) Cancelled Influenza A & B Note Cancelled 05/07/24 05/08/24 05/08/24 22:30 04:32 07:27 WBC 7.9 RBC 4.29 L Hgb 11.9 L Hct 37.2 L MCV 86.7 MCH 27.7 MCHC 32.0 RDW 15.8 Plt Count 181 MPV 10.8 Immature Gran % (Auto) 0.1 Neut % (Auto) 58.1 Lymph % (Auto) 28.0 [place] % (Auto) 11.1 H Eos % (Auto) 1.9 Baso % (Auto) 0.8 Lymph # (Auto) 2.2 [place] # (Auto) 0.9 Eos # (Auto) 0.2 Baso # (Auto) 0.1 Abs Immat Gran (auto) 0.01 Absolute Neuts (auto) 4.6 Absolute Nucleated RBC 0.000 Nucleated RBC % (auto) 0.0 PT Whole Blood PT INR Whole Blood INR Sodium 146 H Potassium 3.8 Chloride 114 H Carbon Dioxide 23 Anion Gap 13 BUN 27 H Creatinine 1.48 H Estim Creat Clear Calc 42.6 Estimated GFR 45 POC Glucose 147 H 132 H Random Glucose 129 H Calcium 9.1 Magnesium Total Bilirubin Direct Bilirubin AST ALT Alkaline Phosphatase Troponin I High Sens 5.5 B-Natriuretic Peptide Total Protein Albumin Urine Color Urine Appearance Urine pH Ur Specific [place] Urine Protein Urine Glucose (UA) Urine Ketones Urine Blood Urine Nitrite Ur Leukocyte Esterase Urine RBC Urine WBC Ur Squamous Epith Cells Urine Bacteria Hyaline Casts Urine Opiates Screen Ur Buprenorphine Scrn Ur Oxycodone Screen Urine Methadone Screen Urine Fentanyl Screen Ur Barbiturates Screen Phenytoin Ur Phencyclidine Scrn Ur Amphetamines Screen U Benzodiazepines Scrn Urine Cocaine Screen U Marijuana (THC) Screen Ethyl Alcohol COVID-19 ([facility]) COVID-19 Clin Com Influenza Type A (AUDREY) Influenza Type B (AUDREY) Influenza A & B Note 05/08/24 05/08/24 11:09 16:08 WBC RBC Hgb Hct MCV MCH MCHC RDW Plt Count MPV Immature Gran % (Auto) Neut % (Auto) Lymph % (Auto) [place] % (Auto) Eos % (Auto) Baso % (Auto) Lymph # (Auto) [place] # (Auto) Eos # (Auto) Baso # (Auto) Abs Immat Gran (auto) Absolute Neuts (auto) Absolute Nucleated RBC Nucleated RBC % (auto) PT Whole Blood PT INR Whole Blood INR Sodium Potassium Chloride Carbon Dioxide Anion Gap BUN Creatinine Estim Creat Clear Calc Estimated GFR POC Glucose 248 H 134 H Random Glucose Calcium Magnesium Total Bilirubin Direct Bilirubin AST ALT Alkaline Phosphatase Troponin I High Sens B-Natriuretic Peptide Total Protein Albumin Urine Color Urine Appearance Urine pH Ur Specific [place] Urine Protein Urine Glucose (UA) Urine Ketones Urine Blood Urine Nitrite Ur Leukocyte Esterase Urine RBC Urine WBC Ur Squamous Epith Cells Urine Bacteria Hyaline Casts Urine Opiates Screen Ur Buprenorphine Scrn Ur Oxycodone Screen Urine Methadone Screen Urine Fentanyl Screen Ur Barbiturates Screen Phenytoin Ur Phencyclidine Scrn Ur Amphetamines Screen U Benzodiazepines Scrn Urine Cocaine Screen U Marijuana (THC) Screen Ethyl Alcohol COVID-19 ([facility]) COVID-19 Clin Com Influenza Type A (AUDREY) Influenza Type B (AUDREY) Influenza A & B Note Discharge Plan Discharge Anticipated Discharge Date/Time: 05/08/24 16:14 Patient Disposition: Home, Self-Care Discharge Diagnosis: Syncope CM Referrals: Pushpa Ruvalcaba MD [Primary Care Provider] - 1 Week Discharge Medications: Continued furosemide 80 mg tablet 80 mg PO BID Qty: 180 1RF nitroglycerin 0.4 mg tablet, sublingual 0.4 mg sublingual .COMPLEX Qty: 75 3RF Rx Instructions: 0.4 mg sublingual One tab under the tongue every 5 minutes as needed for chest pain up to 3; tamsulosin 0.4 mg capsule 0.4 mg PO DAILY 90 Days Qty: 90 1RF phenytoin sodium extended [Dilantin Extended] 100 mg capsule 200 mg PO BID (DME) blood sugar diagnostic Strip See Rx Instructions Not Applicable TID Qty: 10 Rx Instructions: As directed aspirin [Adult Low Dose Aspirin] 81 mg tablet,delayed release (DR/EC) 81 mg PO DAILY rosuvastatin 40 mg tablet 40 mg PO DAILY pantoprazole 40 mg tablet,delayed release (DR/EC) 40 mg PO DAILY (DME) pen needle, diabetic [BD Ultra-Fine Nicole Pen Needle] 32 gauge x 5/32 needle See Rx Instructions .ROUTE .MEDSUPPLY Qty: 150 11RF Rx Instructions: As directed five times a day (DME) pen needle, diabetic [BD Nicole 2nd Gen Pen Needle] 32 gauge x 5/32 needle See Rx Instructions .MEDSUPPLY Qty: 200 10RF Rx Instructions: 5 times a day (DME) lancets [FreeStyle Lancets] 28 gauge misc See Rx Instructions .ROUTE TID Qty: 100 Rx Instructions: As directed cholecalciferol (vitamin D3) 25 mcg (1,000 unit) capsule 25 mcg PO DAILY Qty: 30 3RF isosorbide mononitrate 60 mg tablet extended release 24 hr 60 mg PO DAILY Qty: 90 3RF Rx Instructions: Dose increased ezetimibe 10 mg tablet 10 mg PO DAILY metoprolol succinate 100 mg tablet extended release 24 hr 100 mg PO DAILY pregabalin 300 mg capsule 300 mg PO BID Discontinued spironolactone 25 mg tablet 25 mg PO DAILY Jardiance 25 mg tablet 25 mg PO DAILY No Action insulin aspart U-100 [Novolog FlexPen U-100 Insulin] 100 unit/mL (3 mL) insulin pen 12 - 14 unit subcut TID insulin glargine [Basaglar KwikPen U-100 Insulin] 100 unit/mL (3 mL) insulin pen 24 unit subcut BEDTIME Discharge Orders: Discharge Order (Routine); Ordered 05/08/24 Ordered By: Aaron Curtis Diet: Diabetic diet Activity on Discharge: As tolerated Stand Alone Forms: Patient Portal Discharge page Print Language: Luxembourgish Care Plan Goals: Syncope, question due to seizure/dehydration/ stop Valtrex,discontinue Jardiance and spironolactone Take all other home medications Health Concerns: Diabetes mellitus/hypertension/hyperlipidemia Plan of Treatment: Outpatient follow-up with primary care physician call for appointment Assessment: As above Discharge Date/Time: 05/08/24 17:15
== END 2024-05-08 17:15 | disposition home or self-care (01) ==
LOC: HO.ED 21:02 → HO.EDOVER 21:29 → HO.IMC 05-08 09:17
PROVIDERS: Admitting Provider Internal Medicine; Emergency Provider Emergency Medicine; PCP Internal Medicine; Visit Provider Hospitalist
DX: N17.9 Acute kidney failure, unspecified (principal); R55 Syncope and collapse; G40.909 Epilepsy, unspecified, not intractable, without status epilepticus; I13.0 Hypertensive heart and chronic kidney disease with heart failure and stage 1 through stage 4 chronic kidney disease, or unspecified chronic kidney disease; I50.30 Unspecified diastolic (congestive) heart failure; N18.30 Chronic kidney disease, stage 3 unspecified; E11.22 Type 2 diabetes mellitus with diabetic chronic kidney disease; I25.10 Atherosclerotic heart disease of native coronary artery without angina pectoris; K59.00 Constipation, unspecified; E78.5 Hyperlipidemia, unspecified; I44.0 Atrioventricular block, first degree; Z86.73 Personal history of transient ischemic attack (TIA), and cerebral infarction without residual deficits; Z79.4 Long term (current) use of insulin; Z79.899 Other long term (current) drug therapy
CPT/HCPCS: 36415; 70450; 70496; 70498; 80048; 80076; 80185; 80307; 81001; 82947; 83735; 83880; 84484; 85025; 85610; 93005; 93306; 93880; 96361; 96365; 99222; 99285; J1644; J1953; Q9957; Q9967

== ENCOUNTER → 2024-05-07 17:47 | Outpatient (BNV) | payer MEDICARE, MEDICAID, SELFPAY | PROVIDERS: Admitting Provider Internal Medicine; Emergency Provider Emergency Medicine; PCP Internal Medicine; Visit Provider Internal Medicine Cardiovascular Disease | DX: R94.31 Abnormal electrocardiogram [ECG] [EKG] (principal) | CPT/HCPCS: 93010 ==

== ENCOUNTER 2024-05-07 21:22 | Outpatient (BNV) | payer MEDICARE, MEDICAID, SELFPAY | END 2024-05-08 07:00 | PROVIDERS: Admitting Provider Internal Medicine; Emergency Provider Emergency Medicine; PCP Internal Medicine; Visit Provider Internal Medicine Cardiovascular Disease | DX: I51.89 Other ill-defined heart diseases (principal); R55 Syncope and collapse | CPT/HCPCS: 93306 ==

== ENCOUNTER → 2024-05-07 21:22 | Outpatient (BNV) | payer MEDICARE, MEDICAID, SELFPAY | PROVIDERS: Admitting Provider Internal Medicine; Emergency Provider Emergency Medicine; PCP Internal Medicine; Visit Provider Psychiatry & Neurology Neurology | DX: R56.9 Unspecified convulsions (principal) | CPT/HCPCS: 99222 ==

== ENCOUNTER → 2024-05-07 21:22 | Outpatient (BNV) | payer MEDICARE, MEDICAID, SELFPAY | PROVIDERS: Admitting Provider Internal Medicine; Emergency Provider Emergency Medicine; PCP Internal Medicine; Visit Provider Internal Medicine | DX: R56.9 Unspecified convulsions (principal) | CPT/HCPCS: 99222; 99239 ==

== ENCOUNTER → 2024-05-23 08:13 | Outpatient (REF) | payer MEDICARE, MEDICAID, SELFPAY ==
--- NOTE | ~2024-05-23 | NM_ITS ---
Dobutamine Myocardial perfusion study Indication: Chest pain to evaluate for myocardial ischemia Technique: The patient was brought in for an dobutamine perfusion study on 05/23/2024. Patient performed stress testing as per dobutamine protocol and was injected 35 mCi of sestamibi was given intravenously one target HR was achieved. Images were obtained using the SPECT gamma camera interlaced with the gating device. Images were obtained in supine position. Resting perfusion study was performed on 05/28/2024. Patient was administered 35 mCi of sestamibi intravenously at rest. Images were then obtained in supine position. Images obtained with and without CT attenuation. Total DLP 129 mGy-cm. Images were processed with the software and compared side to side in short axis, horizontal long axis and vertical long axis views. Findings: The stress perfusion study showed non attenuated images show mildly reduced uptake in the basal and mid inferolateral wall of the LV myocardium. Remainder of the LV myocardium is normally perfused. Attenuated corrected images show normal uptake of radiotracer segments of LV myocardium. Is suggestion of left ventricular hypertrophy. The gated study shows normal LV systolic function with calculated LVEF of 52%. LV cavity is normal in size. The gated study shows normal systolic wall thickening and contraction of all segments. There is no transient ischemic dilation. Resting study shows no change in perfusion pattern compared to stress perfusion study. Gating at rest reveals normal systolic wall motion with ejection fraction at 58%. The findings are consistent with normal myocardial perfusion imaging. NM/NM cardiolite stress test Impression: 1. Normal myocardial perfusion imaging 2. Gated LVEF is 58% 3. Transient ischemic dilatation not present Stress EKG is suggestive of ischemia
--- NOTE | 2024-05-23 08:16 | CA_ITS ---
Acquisition Time: 2024-05-23 08:33:31 Total Exercise Time: 00:14:08 Test Indications: SYNCOPE Medications: SEE H Protocol: DOBUTAMINE Max HR: 116 BPM 84% of Pred: 137 BPM Max BP: 162/074 mmHG Max Work Load: 1.0 METS Pharmacological stress test with Dobutamine infusion at max dose 40 mcg/kg achieivng 84% MPHR, without anginal symptoms, with isolated PACs and PVCs, with normotensive response to infusion, with ST elevation in lead 3 and depression in aVL. Nuclear images pending. Test reviewed [facility] Dr. Long. Referred By: Gali Meza Overread By: Riana Sanchez
== END ==
LOC: HO.CARD 08:13
PROVIDERS: PCP Internal Medicine; Visit Provider Nurse Practitioner Family
DX: R07.89 Other chest pain (principal); I25.10 Atherosclerotic heart disease of native coronary artery without angina pectoris; Z95.5 Presence of coronary angioplasty implant and graft
CPT/HCPCS: 78452; 93017; A9500; J1250

== ENCOUNTER → 2024-05-23 08:16 | Outpatient (BNV) | payer MEDICARE, MEDICAID, SELFPAY | PROVIDERS: PCP Internal Medicine; Visit Provider Nurse Practitioner | DX: R07.9 Chest pain, unspecified (principal) | CPT/HCPCS: 78452; 93016; 93018 ==

== ENCOUNTER 2024-06-12 04:28 | Emergency (ER) | payer MEDICARE, MEDICAID, SELFPAY ==
--- NOTE | 2024-06-12 | ECG_ITS ---
Test Reason : edema Blood Pressure : / mmHG Vent. Rate : 088 BPM Atrial Rate : 088 BPM P-R Int : 290 ms QRS Dur : 092 ms QT Int : 372 ms P-R-T Axes : 055 002 034 degrees QTc Int : 450 ms Sinus rhythm with 1st degree A-V block Otherwise normal ECG When compared with ECG of 12-JUN-2024 04:31, No significant changes seen Referred By: Generic ED Physician Electronically Signed By:ANNY VILLAFANA
--- NOTE | ~2024-06-12 | XR_ITS ---
EXAMINATION: XR CHEST CLINICAL INFORMATION: Edema COMPARISON: 05/06/2024 TECHNIQUE: Frontal view of the chest was obtained. FINDINGS: Lung volumes are diminished. The cardiac silhouette is prominent. Mild increased markings in the lungs radiating to the hilar regions. This could be related to low lung volumes. Early vascular congestion would be a consideration. Mild left basilar opacity may represent a small area of atelectasis or infiltrate. The hilar regions are comparable. XR/XR chest 1V IMPRESSION: Mildly low lung volumes. Prominent markings as described radiating to the hilum which could be related to low lung volumes but an element of vascular congestion would need to be considered.. Mild left basilar opacity may represent an area of atelectasis or developing infiltrate.
[2024-06-12 04:35] VITALS: BP 225/91; BP 250/90; PULSE 89; RESP 17; TEMP 37.2; O2SAT 97; BMI 32.4
--- NOTE | 2024-06-12 04:39 | ED_ITS ---
HPI - General Adult General Chief complaint: General Medical Stated complaint: cp Time Seen by Provider: 06/12/24 04:39 History of Present Illness ED Provider: Ellis CASTORENA narrative: The patient is an 84-year-old male with a history of coronary disease. He also has a history of a seizure disorder although he has not had a seizure in a long time. This morning his found him shaking a great deal. The shaking lasted about a minute. Patient's son came in sometime after and says that the patient seemed very confused. Family says that the patient continued to have brief spasms of shaking and they thought that perhaps he was being shocked by his pacemaker. They called an ambulance and he was brought to the hospital. They feel he is somewhat confused. However they said that the patient never learned to read or write and he often seems somewhat disoriented. In the emergency department the patient is denying any complaints. He denies headache, chest pain, shortness of breath, pleuritic pain, abdominal pain, nausea, vomiting. There has been no report of fever, sweats, chills. Related Data Home Medications ?Medication ?Instructions ?Recorded ?Confirmed aspirin 81 mg tablet,delayed 81 mg PO DAILY 08/12/20 05/07/24 release (Adult Low Dose Aspirin) pantoprazole 40 mg tablet,delayed 40 mg PO DAILY 08/12/20 05/07/24 release rosuvastatin 40 mg tablet 40 mg PO DAILY 08/12/20 05/07/24 blood sugar diagnostic #10 ea 09/15/20 04/09/24 lancets 28 gauge (FreeStyle #100 ea 07/20/22 04/09/24 Lancets) ezetimibe 10 mg tablet 10 mg PO DAILY 03/11/24 05/07/24 metoprolol succinate 100 mg 100 mg PO DAILY 03/11/24 05/07/24 tablet,extended release 24 hr pregabalin 300 mg capsule 300 mg PO BID 03/11/24 05/07/24 phenytoin sodium extended 100 mg 200 mg PO BID 05/07/24 05/07/24 capsule (Dilantin Extended) insulin aspart U-100 100 unit/mL 12 - 14 unit subcut TID 05/08/24 05/08/24 (3 mL) subcutaneous pen (Novolog FlexPen U-100 Insulin aspart) insulin glargine 100 unit/mL (3 24 unit subcut BEDTIME 05/08/24 05/08/24 mL) subcutaneous pen (Basaglar KwikPen U-100 Insulin) Previous Rx's ?Medication ?Instructions ?Recorded furosemide 80 mg tablet 80 mg PO BID #180 tabs 12/29/20 nitroglycerin 0.4 mg sublingual 0.4 mg sublingual .COMPLEX #75 tabs 02/19/21 tablet pen needle, diabetic 32 gauge x #150 ea 02/15/22 (BD Ultra-Fine Nicole Pen Needle) BD Nicole 2nd Gen Pen Needle 32 #200 ea 04/19/22 gauge x (pen needle, diabetic) cholecalciferol (vitamin D3) 25 25 mcg PO DAILY #30 caps 12/05/23 mcg (1,000 unit) capsule tamsulosin 0.4 mg capsule 0.4 mg PO DAILY 90 days #90 caps 12/19/23 isosorbide mononitrate 60 mg 60 mg PO DAILY #90 tabs 04/09/24 tablet,extended release 24 hr Allergies Allergy/AdvReac Type Severity Reaction Status Date / Time codeine [CODEINE] Allergy Unknown UNKNOWN Verified 06/12/24 04:38 lisinopril Allergy Unknown choking Uncoded 06/12/24 04:38 Review of Systems 2 Review of Systems: Yes all other systems are reviewed and are negative [facility] Past Medical History Medical History Mass of buttock Left buttock abscess Epidermal cyst Obesity due to excess calories CHF (congestive heart failure) Hypokalemia Diabetic nephropathy associated with type 2 diabetes mellitus CHF (congestive heart failure) Epilepsy Type 2 diabetes mellitus with hyperglycemia, with long-term current use of insulin Secondary hyperparathyroidism Diabetic neuropathy associated with type 2 diabetes mellitus CAD (coronary artery disease) (HFpEF) heart failure with preserved ejection fraction Hypertension Coronary stent patent BPH (benign prostatic hyperplasia) Dyslipidemia Neuropathy associated with endocrine disorder CKD (chronic kidney disease) Diabetes mellitus, type 2 Surgical History Stented coronary artery Hx of cardiac cath Family History Family History Father Diabetes CVD (cardiovascular disease) Mother Diabetes CVD (cardiovascular disease) Brother Diabetes Son Thyroid disease Lung disease Psoriasis HTN (hypertension) Social History Social History Household Members: Spouse, Family and Children Housing: Apartment Do you presently have visiting nurse or other home services: No Alcohol intake: never Patient Tobacco Use Status: Former Tobacco user Smoked in Last 30 Days: No Use of substances other than those prescribed or required for medical reasons: No Advance Directives: Yes Advance Directives on File: Yes Advance Directives Date on File: 05/18/21 Do you have a plan to hurt others: No Plan service: No Current occupational status: retired Physical Exam ED Vital Signs: Vital Signs - 24 hr 06/12/24 04:35 06/12/24 06:11 Temperature 98.9 F 98.4 F Pulse Rate 89 81 Respiratory Rate 17 13 Blood Pressure 225/91 H 158/73 H Pulse Oximetry 97 98 Oxygen Delivery Method Room Air Room Air BMI result Body Mass Index 32.4 Const Other: The patient is an 84-year-old male who was awake and alert. He is pleasant and cooperative. He has a vague affect. He does not appear in distress. HENMT Other: Face is symmetrical. Mucous membranes moist. Tongue is midline. No tongue bruising or bleeding. Eyes Other: Pupils are round equal, conjunctivae are clear, extraocular movements intact Neck Other: Moving his neck easily, no JVD, neck is supple Resp Effort & Inspection: normal respiratory effort Auscultation: clear to auscultation bilaterally Cardio Rate: regular rate Rhythm: regular rhythm Heart sounds: S1 normal heart sound present and S2 normal heart sound present GI Other: Abdomen is soft and nontender Skin Other: Skin is dry and unremarkable Neuro Other: The patient is awake and alert. He has a pleasant demeanor. He knows that he is at [facility] and was able to give the correct age and the correct year but could not give the correct month. Apparently this is not very different from his baseline. There is no facial asymmetry. Eye movements are intact. Pupils are round equal and reactive, speech is clear. He moves his extremities symmetrically. No pronator drift. He was able to walk reasonably steadily with a walker and get himself in and out of a chair. Extrem Other: The patient has mild edema both lower legs and feet. No calf asymmetry or tenderness. Medical Decision Making Medical Decision Making [facility] Narrative: The patient was brought to the hospital after the family found him having unusual shaking. Patient has a history of a seizure disorder and is on Depakote but has not had a seizure for a long time. Ultimately the patient's family agreed that this probably seemed like a seizure. There is no obvious tongue biting and there was no incontinence to confirm this. However there does not seem to be any clear alternative explanation for the events of shaking. The patient does not seem toxic or septic in any way. The patient has an unremarkable chest x-ray. Troponins are normal. EKG is unremarkable. The patient's Depakote level is 12.3, in the therapeutic range although at the lower end of therapeutic. While in the emergency room the patient seemed to return entirely to his baseline mental status. The family seems comfortable taking him home. He should continue his regular medications and follow up with his neurologist. Lab Data 06/12/24 04:46 06/12/24 04:46 Labs: Lab Results 06/12/24 06/12/24 06/12/24 Range/Units 04:35 04:46 04:47 WBC 6.7 (4.8-10.8) X10*3/uL RBC 4.75 (4.60-5.80) X10*6/uL Hgb 13.3 L (14.0-18.0) g/dl Hct 40.3 L (42.0-52.0) % MCV 84.8 (80.0-98.0) fL MCH 28.0 (27.0-33.0) pg MCHC 33.0 (31.0-36.0) g/dl RDW 15.6 (11.0-16.0) % Plt Count 226 (160-400) X10*3/uL MPV 10.8 (9.4-12.4) fL Immature Gran % (Auto) 0.3 (0.0-0.4) % Neut % (Auto) 66.0 (45-73) % Lymph % (Auto) 20.1 (20-40) % [place] % (Auto) 9.1 (2-11) % Eos % (Auto) 3.3 (0-4) % Baso % (Auto) 1.2 (0-2) % Lymph # (Auto) 1.4 (1.2-4.9) X10*3/uL [place] # (Auto) 0.6 (0.1-1.2) X10*3/uL Eos # (Auto) 0.2 (0.0-0.4) X10*3/uL Baso # (Auto) 0.1 (0.0-0.2) X10*3/uL Abs Immat Gran (auto) 0.02 (0.00-0.03) X10*3/uL Absolute Neuts (auto) 4.5 (2.0-8.3) x10*3/uL Absolute Nucleated RBC 0.000 (0.0-0.012) X10*3/uL Nucleated RBC % (auto) 0.0 (0.0-0.2) /100WBC Hold Purple Top SEE NOTE PT 12.2 (11.1-13.3) SEC INR 1.0 (0.9-1.1) Sodium 144 (135-145) mmol/L Potassium 3.3 (3.3-5.1) mmol/L Chloride 107 (96-108) mmol/L Carbon Dioxide 25 (22-29) mmol/L Anion Gap 15 (12-20) BUN 23 H (9-16) mg/dL Creatinine 1.35 (0.5-1.4) mg/dL Estim Creat Clear Calc 46.7 Estimated GFR 50 POC Glucose 151 H (60-115) mg/dL Random Glucose 164 H (60-115) mg/dL Calcium 10.2 D (8.4-10.2) mg/dL Total Bilirubin 0.3 (0.0-1.0) mg/dL AST 14 (5-37) U/L ALT 11 (0-40) U/L Alkaline Phosphatase 124 H (39-117) U/L Troponin I High Sens 4.0 (<3.5-35.0) ng/L B-Natriuretic Peptide 51 (<100) pg/mL Total Protein 8.7 H (6.5-8.0) g/dL Albumin 4.3 (3.5-5.0) g/dL Phenytoin (10.0-20.0) ug/mL Ethyl Alcohol < 10 mg/dL 06/12/24 06/12/24 Range/Units 06:02 06:29 WBC (4.8-10.8) X10*3/uL RBC (4.60-5.80) X10*6/uL Hgb (14.0-18.0) g/dl Hct (42.0-52.0) % MCV (80.0-98.0) fL MCH (27.0-33.0) pg MCHC (31.0-36.0) g/dl RDW (11.0-16.0) % Plt Count (160-400) X10*3/uL MPV (9.4-12.4) fL Immature Gran % (Auto) (0.0-0.4) % Neut % (Auto) (45-73) % Lymph % (Auto) (20-40) % [place] % (Auto) (2-11) % Eos % (Auto) (0-4) % Baso % (Auto) (0-2) % Lymph # (Auto) (1.2-4.9) X10*3/uL [place] # (Auto) (0.1-1.2) X10*3/uL Eos # (Auto) (0.0-0.4) X10*3/uL Baso # (Auto) (0.0-0.2) X10*3/uL Abs Immat Gran (auto) (0.00-0.03) X10*3/uL Absolute Neuts (auto) (2.0-8.3) x10*3/uL Absolute Nucleated RBC (0.0-0.012) X10*3/uL Nucleated RBC % (auto) (0.0-0.2) /100WBC Hold Purple Top PT (11.1-13.3) SEC INR (0.9-1.1) Sodium (135-145) mmol/L Potassium (3.3-5.1) mmol/L Chloride (96-108) mmol/L Carbon Dioxide (22-29) mmol/L Anion Gap (12-20) BUN (9-16) mg/dL Creatinine (0.5-1.4) mg/dL Estim Creat Clear Calc Estimated GFR POC Glucose (60-115) mg/dL Random Glucose (60-115) mg/dL Calcium (8.4-10.2) mg/dL Total Bilirubin (0.0-1.0) mg/dL AST (5-37) U/L ALT (0-40) U/L Alkaline Phosphatase (39-117) U/L Troponin I High Sens 6.9 D (<3.5-35.0) ng/L B-Natriuretic Peptide (<100) pg/mL Total Protein (6.5-8.0) g/dL Albumin (3.5-5.0) g/dL Phenytoin 12.3 (10.0-20.0) ug/mL Ethyl Alcohol mg/dL Discharge Plan Discharge Clinical Impression: Seizure Patient Disposition: Home, Self-Care Additional Instructions: I believe he had a seizure this morning. Please continue his regular medications. Please make sure he takes his regular antiepileptic medication this morning. Please have him follow up with his regular doctor and also with his neurologist. Return to the emergency room if significantly worse. Prescriptions: No Action furosemide 80 mg tablet 80 mg PO BID Qty: 180 1RF nitroglycerin 0.4 mg tablet, sublingual 0.4 mg sublingual .COMPLEX Qty: 75 3RF Rx Instructions: 0.4 mg sublingual One tab under the tongue every 5 minutes as needed for chest pain up to 3; tamsulosin 0.4 mg capsule 0.4 mg PO DAILY 90 Days Qty: 90 1RF phenytoin sodium extended [Dilantin Extended] 100 mg capsule 200 mg PO BID insulin aspart U-100 [Novolog FlexPen U-100 Insulin] 100 unit/mL (3 mL) insulin pen 12 - 14 unit subcut TID insulin glargine [Basaglar KwikPen U-100 Insulin] 100 unit/mL (3 mL) insulin pen 24 unit subcut BEDTIME (DME) blood sugar diagnostic Strip See Rx Instructions Not Applicable TID Qty: 10 Rx Instructions: As directed aspirin [Adult Low Dose Aspirin] 81 mg tablet,delayed release (DR/EC) 81 mg PO DAILY rosuvastatin 40 mg tablet 40 mg PO DAILY pantoprazole 40 mg tablet,delayed release (DR/EC) 40 mg PO DAILY (DME) pen needle, diabetic [BD Ultra-Fine Nicole Pen Needle] 32 gauge x 5/32 needle See Rx Instructions .ROUTE .MEDSUPPLY Qty: 150 11RF Rx Instructions: As directed five times a day (DME) pen needle, diabetic [BD Nicole 2nd Gen Pen Needle] 32 gauge x 5/32 needle See Rx Instructions .MEDSUPPLY Qty: 200 10RF Rx Instructions: 5 times a day (DME) lancets [FreeStyle Lancets] 28 gauge misc See Rx Instructions .ROUTE TID Qty: 100 Rx Instructions: As directed cholecalciferol (vitamin D3) 25 mcg (1,000 unit) capsule 25 mcg PO DAILY Qty: 30 3RF isosorbide mononitrate 60 mg tablet extended release 24 hr 60 mg PO DAILY Qty: 90 3RF Rx Instructions: Dose increased ezetimibe 10 mg tablet 10 mg PO DAILY metoprolol succinate 100 mg tablet extended release 24 hr 100 mg PO DAILY pregabalin 300 mg capsule 300 mg PO BID Referrals: Pushpa Ruvalcaba MD [Physician] - (seizure) Deysi Mendiola MD [Physician] - (seizure) Print Language: Nepali
[2024-06-12 04:40] LABS: Glucose, Whole Blood 151 mg/dL (60-115)
[2024-06-12 04:51] LABS: MANUAL DIFF FLAG NO
[2024-06-12 04:52] LABS: Basophils Absolute Auto 0.1 X10*3/uL (0.0-0.2); Basophils Percent Auto 1.2 % (0-2); Eosinophils Absolute Auto 0.2 X10*3/uL (0.0-0.4); Eosinophils Percent Auto 3.3 % (0-4); Hematocrit 40.3 % (42.0-52.0); Hemoglobin 13.3 g/dl (14.0-18.0); Imm Gran Abs Auto 0.02 X10*3/uL (0.00-0.03); Imm Gran Pct Auto 0.3 % (0.0-0.4); Lymphocytes Absolute Auto 1.4 X10*3/uL (1.2-4.9); Lymphocytes Percent Auto 20.1 % (20-40); Mean Corpuscular Volume 84.8 fL (80.0-98.0); Mean Platelet Volume 10.8 fL (9.4-12.4); Monocytes Absolute Auto 0.6 X10*3/uL (0.1-1.2); Monocytes Percent Auto 9.1 % (2-11); Neutrophils Absolute Auto 4.5 x10*3/uL (2.0-8.3); Platelet Count 226 X10*3/uL (160-400); Red Blood Count 4.75 X10*6/uL (4.60-5.80); Red Cell Distribution Width 15.6 % (11.0-16.0); White Blood Count 6.7 X10*3/uL (4.8-10.8)
[2024-06-12 04:57] LABS: Prothrombin Time 12.2 SEC (11.1-13.3)
--- NOTE | 2024-06-12 04:58 | PC.NURSE ---
washer machine at bedside. pt biba from home a&ox4, respirations even and unlabored. per ems pt family states pt had 2 pacemakers placed and they are currently zapping the pt. pt son reported to ems pt is confused and not at baseline with hx of seizures. upon arrival pt frequently jerking extremities, pt states he is unsure why. pt in and out of being able to answer questions. 20G placed in left ac, labs obtained and sent. pt began to stop jerking extremities and answering questions appropriately. pt noted on ekg to not currently have pacer spikes as well as being normal sinus on tele 80-86bpm without pacer. pt noted to have +2 pitting edema of the lower extremities, pt reports hx of heart issues. pt neuros intact, no facial droop noted and full rom of extremities on command. pt denies headache, chest pain, shortness of breath, nausea, vomiting and diarrhea.
[2024-06-12 05:12] LABS: B Type Natriuretic Peptide 51 pg/mL (<100)
[2024-06-12 05:13] LABS: Alanine Aminotransferase 11 U/L (0-40); Albumin Level 4.3 g/dL (3.5-5.0); Alkaline Phosphatase 124 U/L (39-117); Anion Gap 15 (12-20); Aspartate Amino Transferase 14 U/L (5-37); Bilirubin Total 0.3 mg/dL (0.0-1.0); Blood Urea Nitrogen 23 mg/dL (9-16); Calcium 10.2 mg/dL (8.4-10.2); Carbon Dioxide 25 mmol/L (22-29); Chloride 107 mmol/L (96-108); Creatinine Clr Calc Pharmacy 46.7; Estimated Glomerular Filt Rate 50; Ethanol < 10 mg/dL; Glucose Random 164 mg/dL (60-115); Potassium 3.3 mmol/L (3.3-5.1); Sodium 144 mmol/L (135-145); Total Protein 8.7 g/dL (6.5-8.0)
[2024-06-12 06:11] VITALS: BP 158/73; PULSE 81; RESP 13; TEMP 36.9; O2SAT 98
[2024-06-12 06:24] LABS: Phenytoin Dilantin 12.3 ug/mL (10.0-20.0)
[2024-06-12 06:53] LABS: Troponin-I High Sensitivity 6.9 ng/L (<3.5-35.0)
[2024-06-12 08:12] VITALS: BP 129/77; PULSE 71; RESP 16; TEMP 36.9; O2SAT 95
[2024-06-12 08:13] VITALS: BP 129/77; PULSE 71; RESP 16; TEMP 36.9; O2SAT 95
== END 2024-06-12 08:14 | disposition home or self-care (01) ==
PROVIDERS: Emergency Provider Emergency Medicine
DX: R56.9 Unspecified convulsions (principal); R07.89 Other chest pain; R06.02 Shortness of breath; R41.0 Disorientation, unspecified; M54.2 Cervicalgia; I25.10 Atherosclerotic heart disease of native coronary artery without angina pectoris; E11.9 Type 2 diabetes mellitus without complications; Z79.899 Other long term (current) drug therapy; Z79.4 Long term (current) use of insulin
CPT/HCPCS: 36415; 71045; 80053; 80185; 80307; 82947; 83880; 83970; 84484; 85025; 85610; 93005; 99283; 99284

== ENCOUNTER → 2024-06-12 04:32 | Outpatient (BNV) | payer MEDICARE, MEDICAID, SELFPAY | PROVIDERS: Emergency Provider Emergency Medicine; Visit Provider Internal Medicine | DX: I44.0 Atrioventricular block, first degree (principal); R60.0 Localized edema | CPT/HCPCS: 93010 ==

== ENCOUNTER 2024-06-12 10:33 | Outpatient (REF) | payer MEDICARE, MEDICAID, SELFPAY ==
[2024-06-12 10:48] LABS: MANUAL DIFF FLAG NO
[2024-06-12 12:54] LABS: Alanine Aminotransferase 7 U/L (0-40); Albumin Level 3.7 g/dL (3.5-5.0); Alkaline Phosphatase 105 U/L (39-117); Anion Gap 11 (12-20); Aspartate Amino Transferase 12 U/L (5-37); Bilirubin Total 0.2 mg/dL (0.0-1.0); Blood Urea Nitrogen 23 mg/dL (9-16); Calcium 8.9 mg/dL (8.4-10.2); Carbon Dioxide 28 mmol/L (22-29); Chloride 107 mmol/L (96-108); Estimated Glomerular Filt Rate 52; Glucose Random 268 mg/dL (60-115); Potassium 4.3 mmol/L (3.3-5.1); Sodium 142 mmol/L (135-145); Total Protein 7.5 g/dL (6.5-8.0)
[2024-06-12 12:59] LABS: Parathyroid Hormone Intact 158.9 pg/mL (8.7-77.1)
[2024-06-12 13:37] LABS: Basophils Absolute Auto 0.1 X10*3/uL (0.0-0.2); Basophils Percent Auto 0.9 % (0-2); Eosinophils Absolute Auto 0.1 X10*3/uL (0.0-0.4); Eosinophils Percent Auto 0.8 % (0-4); Hematocrit 37.1 % (42.0-52.0); Hemoglobin 11.9 g/dl (14.0-18.0); Imm Gran Abs Auto 0.01 X10*3/uL (0.00-0.03); Imm Gran Pct Auto 0.2 % (0.0-0.4); Lymphocytes Absolute Auto 1.1 X10*3/uL (1.2-4.9); Lymphocytes Percent Auto 17.6 % (20-40); Mean Corpuscular HGB Conc 32.1 g/dl (31.0-36.0); Mean Corpuscular Hemoglobin 27.8 pg (27.0-33.0); Mean Corpuscular Volume 86.7 fL (80.0-98.0); Mean Platelet Volume 11.6 fL (9.4-12.4); Monocytes Absolute Auto 0.5 X10*3/uL (0.1-1.2); Monocytes Percent Auto 7.9 % (2-11); Neutrophils Absolute Auto 4.6 x10*3/uL (2.0-8.3); Neutrophils Percent Auto 72.6 % (45-73); Platelet Count 229 X10*3/uL (160-400); Red Blood Count 4.28 X10*6/uL (4.60-5.80); Red Cell Distribution Width 15.8 % (11.0-16.0); White Blood Count 6.3 X10*3/uL (4.8-10.8)
== END 2024-06-12 10:34 | disposition home or self-care (01) ==
LOC: HO.LAB 10:33
PROVIDERS: PCP Internal Medicine; Visit Provider Internal Medicine Hypertension Specialist
DX: Z13.89 Encounter for screening for other disorder (principal)
CPT/HCPCS: 36415; 80053; 83970; 85025

== ENCOUNTER 2024-06-20 15:18 | Outpatient (AMB) | payer MEDICARE, MEDICAID, SELFPAY ==
--- NOTE | 2024-06-20 15:20 | A.OFFVIS_ITS ---
Vital Signs 06/20/24 15:21 Height 5 ft 8 in Weight 206 lb 12.697 oz BMI 31.4 BP 164/70 H Blood Pressure Location Rt brachial Position Sitting Pulse 63 Pulse Source Pulse Oximeter Intake Visit Reasons: 2 mth f/up nuc/ echo Lpn Medical Assistant Required: Yes Lpn Medical Assistant Language: Divehi Allergies codeine [CODEINE] Allergy (Unknown, Verified 06/20/24 15:25) UNKNOWN lisinopril Allergy (Unknown, Uncoded 06/20/24 15:25) choking Medication List - Last Reconciled 06/20/24 by BEATRICE Easton aspirin (Adult Low Dose Aspirin) 81 mg PO DAILY BD Nicole 2nd Gen Pen Needle (pen needle, diabetic) 5 times a day NS blood sugar diagnostic As directed cholecalciferol (vitamin D3) 25 mcg PO DAILY empagliflozin (Jardiance) 25 mg PO DAILY ezetimibe 10 mg PO DAILY furosemide 80 mg PO BID insulin aspart U-100 (Novolog FlexPen U-100 Insulin aspart) 12 - 14 units subcut TID insulin glargine (Basaglar KwikPen U-100 Insulin) 24 units subcut BEDTIME isosorbide mononitrate ER 60 mg PO DAILY lancets (FreeStyle Lancets) As directed metoprolol succinate ER 100 mg PO DAILY nitroglycerin 0.4 mg sublingual One tab under the tongue every 5 minutes as needed for chest pain up to 3; pantoprazole 40 mg PO DAILY pen needle, diabetic (BD Ultra-Fine Nicole Pen Needle) As directed five times a day phenytoin sodium extended (Dilantin Extended) 200 mg PO BID pregabalin 300 mg PO BID rosuvastatin 40 mg PO DAILY tamsulosin 0.4 mg PO DAILY 90 days HPI HPI 2 mth f/up nuc/ echo: Details: Andres is an 84-year-old male with past medical history of hypertension, hyperlipidemia, diabetes, seizures, coronary artery disease, LAD stent 2018, re sidual RCA and distal left circumflex stenosis, heart failure with preserved EF who presents for follow-up after recent echocardiogram and stress test. Today he reports that he still has discomfort in his anterior chest. He is better at describing things today and tells me that notices it more when he takes a deep breath in and when he turns his body [id number]. He has no chest discomfort today. He has some shortness of breath with activity which is not new. No clear palpitations, presyncope, syncope, falls. He has chronic lower leg edema, which is unchanged according to his . He is very sedentary and sits in a recliner much of the day. He ambulates with a wheeled walker. is present. Since his last visit he was seen in the emergency room following a seizure event. Certified aerial photograph interpreter used. [facility], LATER [facility] Medical History Mass of buttock Left buttock abscess Epidermal cyst Obesity due to excess calories CHF (congestive heart failure) Hypokalemia Diabetic nephropathy associated with type 2 diabetes mellitus CHF (congestive heart failure) Epilepsy Type 2 diabetes mellitus with hyperglycemia, with long-term current use of insulin Secondary hyperparathyroidism Diabetic neuropathy associated with type 2 diabetes mellitus CAD (coronary artery disease) (HFpEF) heart failure with preserved ejection fraction Hypertension Coronary stent patent BPH (benign prostatic hyperplasia) Dyslipidemia Neuropathy associated with endocrine disorder CKD (chronic kidney disease) Diabetes mellitus, type 2 Surgical History Stented coronary artery Hx of cardiac cath Family History Father Diabetes CVD (cardiovascular disease) Mother Diabetes CVD (cardiovascular disease) Brother Diabetes Son Thyroid disease Lung disease Psoriasis HTN (hypertension) Social History Household Members: Spouse, Family and Children Housing: Apartment Do you presently have visiting nurse or other home services: No Alcohol intake: never Patient Tobacco Use Status: Former Tobacco user Advance Directives Date on File: 05/18/21 service: No Current occupational status: retired Review of Systems Const Details: Seizures twice recently All systems reviewed & are unremarkable except as noted in HPI and below ENT Denies dizziness Card Reports chest pain, Denies chest pain at rest, Denies chest pain with activity, Denies rapid heart rate, Denies pedal edema, Denies edema, Reports leg edema (Chronic), Denies lightheadedness, Denies palpitations, Reports dyspnea, Denies dyspnea on exertion and Denies orthopnea Resp Denies cough, Reports dyspnea and Denies dyspnea on exertion GI Denies hematochezia and Denies change in stool character Musc Reports abnormal gait (Uses wheeling walker), Denies limited range of motion, Denies muscle cramps, Denies muscle weakness, Denies numbness, Denies radiating pain into limb, Denies stiffness and Denies tingling Neuro Reports abnormal gait (Uses wheeling walker), Denies dizziness, Denies numbness and Denies tingling Endo Denies palpitations Physical Exam Vital Signs: Last Vital Signs Pulse 63 06/20/24 15:21 BP 164/70 H 06/20/24 15:21 BMI result Body Mass Index 31.4 Const General: cooperative, healthy appearing, comfortable and no acute distress Orientation/consciousness: patient oriented x3 Neck Neck: Yes normal visual inspection and Yes no JVD Resp Effort & Inspection: normal respiratory effort Auscultation: clear to auscultation bilaterally, no rales, no rhonchi and no wheezes Cardio Jugular venous distension: no JVD Rate: regular rate Rhythm: regular rhythm Heart sounds: S1 normal heart sound present, S2 normal heart sound present, no murmurs and no rubs Neuro General: patient oriented x3 Extrem Other: Soft pitting edema of his ankles bilaterally General: No calf tenderness Psych Appearance: grossly normal Mental Status: mental status grossly normal Speech and movement: Normal speech and movement present Assessment & Plan Assessment & Plan (1) Chest discomfort: Code(s): R07.89 - Other chest pain Category: Medical Plan: On last visit reported anterior chest discomfort that was somewhat vague. He does have a known history of CAD with LAD stent 2018 and residual left circumflex and RCA stenosis. EKG done last visit showing sinus bradycardia with first-degree AV block, no acute ST or T-wave abnormalities. He underwent an echocardiogram on 05/08/2024 showing EF greater than 70%, moderate LV thickness, normal RV, mildly dilated ascending aorta 4.0 cm. A pharmacological nuclear stress test was done on 05/28/2024 showing normal myocardial perfusion imaging. Today a certified aerial photograph interpreter is used and he is better able to describe his symptoms. He tells me that his anterior chest discomfort is a feeling he g ets with coughing, deep inspiration and at times when turning his body. He denies having this symptom at present. Test results reviewed with him. Informed him this is noncardiac pain and he can further discuss with his PCP. Reviewed signs and symptoms of angina reviewed with him. Cardiology follow-up 6 months, sooner if needed (2) CAD (coronary artery disease): Code(s): I25.10 - Atherosclerotic heart disease of [place] coronary artery without angina pectoris Category: Medical Plan: As above. Continue management for CAD with aspirin indefinitely. Continue metoprolol and isosorbide. Continue high-dose rosuvastatin with ideal LDL goal less than 70, Zetia. Labs done on 01/12/2024 shows LDL 117. PCSK9 inhibitor is being considered however on sure if patient will be able to manage this. Will plan a recheck of his fasting lipids prior to next visit. Benefits of strict med compliance, weight loss and activity as tolerated reviewed. (3) Stented coronary artery: Code(s): Z95.5 - Presence of coronary angioplasty implant and graft Category: Surgical Plan: LAD stent 2018 (4) (HFpEF) heart failure with preserved ejection fraction: Code(s): I50.30 - Unspecified diastolic (congestive) heart failure Category: Medical Plan: History of heart failure with preserved EF. Recent echo as above, EF greater than 70%. On exam today he does not appear fluid overloaded the exception of his chronic lower leg edema. He is sedentary and sits most of the day in a recliner. His feet are elevated however still remain low in comparison to his heart. He continues on Lasix 80 mg b.i.d.. Labs done 06/12/2024 shows potassium 4.3, creatinine 1.32. Reviewed low-salt diet, leg elevation. Continue Lasix at current dose. (5) Hypertension: Code(s): I10 - Essential (primary) hypertension Category: Medical Qualifiers: Hypertension type: essential hypertension Qualified Code(s): I10 - Essential (primary) hypertension Plan: Elevated at this visit. Recheck done by me does show improvement down to 138/76. Meds reviewed and no changes at this time. He has follow-up with [facility] on 07/11/2024. (6) Dyslipidemia: Code(s): E78.5 - Hyperlipidemia, unspecified Category: Medical Plan: As above Plan Time spent on chart review, documentation, interview and assessment Orders: Orders Lipid Panel Today I25.10 - Atherosclerotic heart disease of [place] coronary artery without angina pectoris Coding Level of Care Code Est Pt Level 4 (20598) Diagnoses Chest discomfort R07.89 CAD (coronary artery disease) I25.10 Stented coronary artery Z95.5 (HFpEF) heart failure with preserved ejection fraction I50.30 Essential hypertension I10 Hypertension type: essential hypertension Dyslipidemia E78.5 Time Spent (min) 28
[2024-06-20 15:21] VITALS: BP 164/70; PULSE 63; BMI 31.4
== END 2024-06-20 16:23 | disposition home or self-care (01) ==
PROVIDERS: PCP Internal Medicine; Visit Provider Nurse Practitioner Family
DX: R07.89 Other chest pain (principal); I25.10 Atherosclerotic heart disease of native coronary artery without angina pectoris; Z95.5 Presence of coronary angioplasty implant and graft; I50.30 Unspecified diastolic (congestive) heart failure; I10 Essential (primary) hypertension; E78.5 Hyperlipidemia, unspecified
CPT/HCPCS: 99214

== ENCOUNTER → 2024-06-20 15:18 | Outpatient (BNVA) | payer MEDICARE, MEDICAID, SELFPAY | PROVIDERS: PCP Internal Medicine; Visit Provider Nurse Practitioner Family | DX: R07.89 Other chest pain (principal); I25.10 Atherosclerotic heart disease of native coronary artery without angina pectoris; I11.0 Hypertensive heart disease with heart failure; I50.30 Unspecified diastolic (congestive) heart failure; E78.5 Hyperlipidemia, unspecified; Z95.5 Presence of coronary angioplasty implant and graft; Z98.890 Other specified postprocedural states | CPT/HCPCS: 99212 ==

== ENCOUNTER 2024-07-11 13:50 | Outpatient (AMB) | payer MEDICARE, MEDICAID, SELFPAY ==
[2024-07-11 13:55] VITALS: BP 148/90; PULSE 75; O2SAT 97; BMI 32.1
--- NOTE | 2024-07-11 13:55 | HO.NEPHOV_ITS ---
Vital Signs 07/11/24 13:55 Height 5 ft 8 in Weight 211 lb BMI 32.1 BP 148/90 H Blood Pressure Location Lt brachial Position Sitting Pulse 75 Pulse Source Pulse Oximeter Pulse Oximetry (%) 97 Oxygen Delivery Method Room Air Intake Visit Reasons: CKD/ 3 MO FU/ Conf Community Relations Director Required: Yes Community Relations Director Name: [id number] Jayden Accompanied by: Daughter Allergies codeine [CODEINE] Allergy (Unknown, Verified 07/11/24 13:59) UNKNOWN lisinopril Allergy (Unknown, Uncoded 06/20/24 15:25) choking HPI Comments Details: Elderly man with a h/o CKD in a setting of CHF and CAD and DM Accompanied by family c/o Edema No dyspnea On high dose of Lasix Doing better today Lost 5- 6 lbs 07/11/24 c/o GIRALDO Gained 6 lbs PFS Medical History Mass of buttock Left buttock abscess Epidermal cyst Obesity due to excess calories CHF (congestive heart failure) Hypokalemia Diabetic nephropathy associated with type 2 diabetes mellitus CHF (congestive heart failure) Epilepsy Type 2 diabetes mellitus with hyperglycemia, with long-term current use of insulin Secondary hyperparathyroidism Diabetic neuropathy associated with type 2 diabetes mellitus CAD (coronary artery disease) (HFpEF) heart failure with preserved ejection fraction Hypertension Coronary stent patent BPH (benign prostatic hyperplasia) Dyslipidemia Neuropathy associated with endocrine disorder CKD (chronic kidney disease) Diabetes mellitus, type 2 Surgical History Stented coronary artery Hx of cardiac cath Family History Father Diabetes CVD (cardiovascular disease) Mother Diabetes CVD (cardiovascular disease) Brother Diabetes Son Thyroid disease Lung disease Psoriasis HTN (hypertension) Social History Household Members: Spouse, Family and Children Housing: Apartment Do you presently have visiting nurse or other home services: No Alcohol intake: never Patient Tobacco Use Status: Former Tobacco user Advance Directives Date on File: 05/18/21 service: No Current occupational status: retired Physical Exam Vital Signs: BMI result Body Mass Index 32.1 Awake. Comfortable. Neck is supple. Mucosa moist. Lungs bilateral scattered rales Heart S1-S2 heard no gallop. Abdomen soft. Extremities 1 to 2+ edema. No involuntary movements. No myoclonus. Results Reviewed Nephrology Results: Hgb 11.9 g/dl (14.0-18.0) L 06/12/24 WBC 6.3 X10*3/uL (4.8-10.8) 06/12/24 Plt Count 229 X10*3/uL (160-400) 06/12/24 Sodium 142 mmol/L (135-145) 06/12/24 Potassium 4.3 mmol/L (3.3-5.1) 06/12/24 Chloride 107 mmol/L (96-108) 06/12/24 Carbon Dioxide 28 mmol/L (22-29) 06/12/24 BUN 23 mg/dL (9-16) H 06/12/24 Creatinine 1.32 mg/dL (0.5-1.4) 06/12/24 Calcium 8.9 mg/dL (8.4-10.2) 06/12/24 PTH Intact 158.9 pg/mL (8.7-77.1) H 06/12/24 Urine Protein Negative mg/dL (Neg-Trace) 05/07/24 Assessment & Plan Assessment & Plan (1) Chronic heart failure with preserved ejection fraction (HFpEF): Code(s): I50.32 - Chronic diastolic (congestive) heart failure Category: Medical (2) CKD (chronic kidney disease): Code(s): N18.9 - Chronic kidney disease, unspecified Category: Medical (3) (HFpEF) heart failure with preserved ejection fraction: Code(s): I50.30 - Unspecified diastolic (congestive) heart failure Category: Medical Plan CKD in a setting of longstanding DM and CHF Volume status - Clinically overloaded! Needs to stay on low salt diet. Discussed with family Keep Lasix 80 mg BID ADD Zaroxylin 2.5 mg QOD x 3 doses Maintian BP < 130/80 Maintain A1C < 7% Would benefit from SGLT-2 inhibitor - continue with Jardiance Watch K while of Spironolactone Keep Vit D to correct deficiency Mild Anemia Stable. No indication for Epogen Orders: Orders Basic Metabolic Panel 2 Weeks I50.32 - Chronic diastolic (congestive) heart delfestus juarez, N18.9 - Chronic kidney disease, unspecified Medications: New metolazone Take 1 tablet on Monday, Monday, Monday 2.5 mg PO Q OTHER DAY 3 tabs 0RF Edema Coding Level of Care Code Est Pt Level 4 (69081) Diagnoses Chronic heart failure with preserved ejection fraction (HFpEF) I50.32 CKD (chronic kidney disease) N18.9 (HFpEF) heart failure with preserved ejection fraction I50.30
== END 2024-07-11 14:20 | disposition home or self-care (01) ==
PROVIDERS: PCP Internal Medicine; Visit Provider Internal Medicine Hypertension Specialist
DX: I50.32 Chronic diastolic (congestive) heart failure (principal); N18.9 Chronic kidney disease, unspecified; I50.30 Unspecified diastolic (congestive) heart failure
CPT/HCPCS: 99214

== ENCOUNTER → 2024-07-11 13:50 | Outpatient (BNVA) | payer MEDICARE, MEDICAID, SELFPAY | PROVIDERS: PCP Internal Medicine; Visit Provider Internal Medicine Hypertension Specialist | DX: N18.9 Chronic kidney disease, unspecified (principal); I50.32 Chronic diastolic (congestive) heart failure | CPT/HCPCS: 99212 ==

== ENCOUNTER 2024-07-25 07:37 | Outpatient (REF) | payer MEDICARE, MEDICAID, SELFPAY ==
[2024-07-25 08:25] LABS: Anion Gap 11 (12-20); Blood Urea Nitrogen 26 mg/dL (9-16); Calcium 9.4 mg/dL (8.4-10.2); Carbon Dioxide 28 mmol/L (22-29); Chloride 112 mmol/L (96-108); Cholesterol 179 mg/dL (<200); Estimated Glomerular Filt Rate 49; Glucose Random 145 mg/dL (60-115); HDL Cholesterol 47 mg/dL (>40); LDL Cholesterol Calculated 107 mg/dL (<100); Potassium 3.7 mmol/L (3.3-5.1); Sodium 147 mmol/L (135-145); Triglycerides 127 mg/dL (<150)
[2024-07-25 08:33] LABS: Parathyroid Hormone Intact 133.7 pg/mL (8.7-77.1)
== END 2024-07-25 07:38 | disposition home or self-care (01) ==
LOC: HO.LAB 07:37
PROVIDERS: PCP Internal Medicine; Visit Provider Internal Medicine Hypertension Specialist
DX: I10 Essential (primary) hypertension (principal); N18.9 Chronic kidney disease, unspecified; I25.10 Atherosclerotic heart disease of native coronary artery without angina pectoris
CPT/HCPCS: 36415; 80048; 80061; 83970

== ENCOUNTER 2024-08-01 15:03 | Outpatient (AMB) | payer MEDICARE, MEDICAID, SELFPAY ==
[2024-08-01 15:26] VITALS: PULSE 60; O2SAT 97; BMI 32.2
--- NOTE | 2024-08-01 15:26 | HO.NEPHOV_ITS ---
Vital Signs 08/01/24 15:26 08/01/24 15:35 Height 5 ft 8 in Weight 212 lb BMI 32.2 BP 120/60 Blood Pressure Location Lt brachial Position Sitting Pulse 60 Pulse Source Pulse Oximeter Pulse Oximetry (%) 97 Oxygen Delivery Method Room Air Intake Visit Reasons: CKD/ Conf Microelectronics Assembler Required: No Microelectronics Assembler Services: Microelectronics Assembler Present Accompanied by: Son Allergies codeine [CODEINE] Allergy (Unknown, Verified 08/01/24 15:28) UNKNOWN lisinopril Allergy (Unknown, Uncoded 06/20/24 15:25) choking Medication List - Last Reconciled 08/01/24 by Zan Campbell MD aspirin (Adult Low Dose Aspirin) 81 mg PO DAILY BD Nicole 2nd Gen Pen Needle (pen needle, diabetic) 5 times a day NS blood sugar diagnostic As directed cholecalciferol (vitamin D3) 25 mcg PO DAILY empagliflozin (Jardiance) 25 mg PO DAILY evolocumab (Repatha SureClick) 140 mg subcut Q2W ezetimibe 10 mg PO DAILY furosemide 80 mg PO BID insulin aspart U-100 (Novolog FlexPen U-100 Insulin aspart) 12 - 14 units subcut TID insulin glargine (Basaglar KwikPen U-100 Insulin) 24 units subcut BEDTIME isosorbide mononitrate ER 60 mg PO DAILY lancets (FreeStyle Lancets) As directed metolazone 2.5 mg PO Q OTHER DAY metoprolol succinate ER 100 mg PO DAILY nitroglycerin 0.4 mg sublingual One tab under the tongue every 5 minutes as needed for chest pain up to 3; pantoprazole 40 mg PO DAILY pen needle, diabetic (BD Ultra-Fine Nicole Pen Needle) As directed five times a day phenytoin sodium extended (Dilantin Extended) 200 mg PO BID pregabalin 300 mg PO BID rosuvastatin 40 mg PO DAILY tamsulosin 0.4 mg PO DAILY 90 days HPI Comments Details: Elderly man with a h/o CKD in a setting of CHF and CAD and DM Accompanied by family c/o Edema No dyspnea On high dose of Lasix Doing better today Lost 5- 6 lbs 07/11/24 c/o GIRALDO Gained 6 lbs 08/01/24 Dyspnea improved with Metolazone Still with edema [facility] Medical History Mass of buttock Left buttock abscess Epidermal cyst Obesity due to excess calories CHF (congestive heart failure) Hypokalemia Diabetic nephropathy associated with type 2 diabetes mellitus CHF (congestive heart failure) Epilepsy Type 2 diabetes mellitus with hyperglycemia, with long-term current use of insulin Secondary hyperparathyroidism Diabetic neuropathy associated with type 2 diabetes mellitus CAD (coronary artery disease) (HFpEF) heart failure with preserved ejection fraction Hypertension Coronary stent patent BPH (benign prostatic hyperplasia) Dyslipidemia Neuropathy associated with endocrine disorder CKD (chronic kidney disease) Diabetes mellitus, type 2 Surgical History Stented coronary artery Hx of cardiac cath Family History Father Diabetes CVD (cardiovascular disease) Mother Diabetes CVD (cardiovascular disease) Brother Diabetes Son Thyroid disease Lung disease Psoriasis HTN (hypertension) Social History Household Members: Spouse, Family and Children Housing: Apartment Do you presently have visiting nurse or other home services: No Alcohol intake: never Patient Tobacco Use Status: Former Tobacco user Advance Directives Date on File: 05/18/21 service: No Current occupational status: retired Physical Exam Vital Signs: Last Vital Signs Pulse 60 08/01/24 15:26 Pulse Ox 97 08/01/24 15:26 Oxygen Delivery Method Room Air 08/01/24 15:26 BMI result Body Mass Index 32.2 Awake. Comfortable. Neck is supple. Mucosa moist. Lungs bilateral scattered rales Heart S1-S2 heard no gallop. Abdomen soft. Extremities 1 to 2+ edema. No involuntary movements. No myoclonus. Results Reviewed Nephrology Results: Hgb 11.9 g/dl (14.0-18.0) L 06/12/24 WBC 6.3 X10*3/uL (4.8-10.8) 06/12/24 Plt Count 229 X10*3/uL (160-400) 06/12/24 Sodium 147 mmol/L (135-145) H 07/25/24 Potassium 3.7 mmol/L (3.3-5.1) 07/25/24 Chloride 112 mmol/L (96-108) H 07/25/24 Carbon Dioxide 28 mmol/L (22-29) 07/25/24 BUN 26 mg/dL (9-16) H 07/25/24 Creatinine 1.38 mg/dL (0.5-1.4) 07/25/24 Calcium 9.4 mg/dL (8.4-10.2) 07/25/24 PTH Intact 133.7 pg/mL (8.7-77.1) H 07/25/24 Assessment & Plan Assessment & Plan (1) Chronic heart failure with preserved ejection fraction (HFpEF): Code(s): I50.32 - Chronic diastolic (congestive) heart failure Category: Medical (2) CKD (chronic kidney disease): Code(s): N18.9 - Chronic kidney disease, unspecified Category: Medical (3) (HFpEF) heart failure with preserved ejection fraction: Code(s): I50.30 - Unspecified diastolic (congestive) heart failure Category: Medical Plan CKD in a setting of longstanding DM and CHF Volume status - Overload is improving Needs to stay on low salt diet. Discussed with family Keep Lasix 80 mg BID ADD Zaroxylin 2.5 mg ONCE a week Maintain BP < 130/80 Maintain A1C < 7% Would benefit from SGLT-2 inhibitor - continue with Jardiance Watch K while of Spironolactone Keep Vit D to correct deficiency Mild Anemia Stable. No indication for Epogen Medications: Changed From metolazone Take 1 tablet on Monday, Monday, Monday 2.5 mg PO Q OTHER DAY 3 tabs 0RF Edema To metolazone 2.5 mg PO .Once a week 30 tabs 0RF Edema Coding Level of Care Code Est Pt Level 4 (92425) Diagnoses Chronic heart failure with preserved ejection fraction (HFpEF) I50.32 CKD (chronic kidney disease) N18.9 (HFpEF) heart failure with preserved ejection fraction I50.30
[2024-08-01 15:35] VITALS: BP 120/60
== END 2024-08-01 15:39 | disposition home or self-care (01) ==
PROVIDERS: PCP Internal Medicine; Visit Provider Internal Medicine Hypertension Specialist
DX: I50.32 Chronic diastolic (congestive) heart failure (principal); E11.22 Type 2 diabetes mellitus with diabetic chronic kidney disease; N18.9 Chronic kidney disease, unspecified
CPT/HCPCS: 99214

== ENCOUNTER → 2024-08-01 15:03 | Outpatient (BNVA) | payer MEDICARE, MEDICAID, SELFPAY | PROVIDERS: PCP Internal Medicine; Visit Provider Internal Medicine Hypertension Specialist | DX: N18.9 Chronic kidney disease, unspecified (principal); I50.32 Chronic diastolic (congestive) heart failure | CPT/HCPCS: 99212 ==

== ENCOUNTER 2024-08-06 15:09 | Outpatient (AMB) | payer MEDICARE, MEDICAID, SELFPAY ==
--- NOTE | 2024-08-06 15:19 | MHC.OFFVIS ---
Intake Visit Reasons: 6m/PVR Intake Note: Patient is Present for PVR/ Urology Med: Tamsulosin Antibiotic Allergy: None Blood Thinner:Aspirin Patient is currently on Jardiance Last PVR: 462 ml Todays PVR: 190 Allergies codeine [CODEINE] Allergy (Unknown, Verified 10/10/24 13:21) UNKNOWN lisinopril Allergy (Unknown, Uncoded 06/20/24 15:25) choking HPI Comments Details: Andres is a pleasant [place]-speaking male. He is a patient of . he seen for the following urologic conditions - lower urinary tract symptoms Doing better with emptying. PVR 190 cc. Last PVR for 60 Follow-up for urinary urgency in setting of diabetes - HbA1c 8.9% On Lasix 80 mg b.i.d. Discussed elevation of feet after 04:00 o'clock in order to improve circulatory return [place] translation provided by qualified medical clinic manager Accompanied by his daughter Does have urgency and recommended to decrease fluid intake after 19:00 Lower urinary tract symptoms Longstanding Prior [employer] laser prostate 2021 Concomitant conditions include type 2 diabetes - insulin-dependent On diuretics Nocturia x3-4 PFSH Medical History Mass of buttock Left buttock abscess Epidermal cyst Obesity due to excess calories CHF (congestive heart failure) Hypokalemia Diabetic nephropathy associated with type 2 diabetes mellitus CHF (congestive heart failure) Epilepsy Type 2 diabetes mellitus with hyperglycemia, with long-term current use of insulin Secondary hyperparathyroidism Diabetic neuropathy associated with type 2 diabetes mellitus CAD (coronary artery disease) (HFpEF) heart failure with preserved ejection fraction Hypertension Coronary stent patent BPH (benign prostatic hyperplasia) Dyslipidemia Neuropathy associated with endocrine disorder CKD (chronic kidney disease) Diabetes mellitus, type 2 Surgical History Stented coronary artery Hx of cardiac cath Family History Father Diabetes CVD (cardiovascular disease) Mother Diabetes CVD (cardiovascular disease) Brother Diabetes Son Thyroid disease Lung disease Psoriasis HTN (hypertension) Social History Household Members: Spouse, Family and Children Housing: Apartment Do you presently have visiting nurse or other home services: No Alcohol intake: never Patient Tobacco Use Status: Former Tobacco user Advance Directives Date on File: 05/18/21 service: No Current occupational status: retired Review of Systems Const Denies chills and Denies fever(s) Card Reports no additional complaints and Denies syncope Resp Denies cough GI Denies abdominal pain and Denies heartburn Reports as per HPI and Denies change in libido Neuro Denies syncope Psych Denies change in libido Endo Denies change in libido Physical Exam Const General: cooperative, healthy appearing, comfortable and no acute distress Orientation/consciousness: patient oriented x3 HEENT Face and sinus: Yes normal facial exam Mouth: moist mucous membranes Neck Neck: Yes normal visual inspection, Yes full ROM and Yes trachea midline Chest Chest palpation & inspection: normal inspection of the chest Resp Effort & Inspection: normal respiratory effort, able to speak in complete sentences and no respiratory distress GI Inspection: Yes normal to inspection Back/Spine/Pelvis Cervical Spine: normal cervical lordosis Thoracic/Lumbar Spine: thoracic and lumbar spine normal to inspection Skin General skin exam: no rashes or lesions noted Neuro General: patient oriented x3, gait normal, tone normal and moves all extremities Extrem General: Yes normal to inspection and Yes capillary refill normal Office Procedures Post Void Residual Post Residual Void Post Void Residual (PVR): 190 26992-Nzte Void Residual by ultrasound Assessment & Plan Assessment & Plan (1) BPH (benign prostatic hyperplasia): Code(s): N40.0 - Benign prostatic hyperplasia without lower urinary tract symptoms Category: Medical (2) Urinary urgency: Code(s): R39.15 - Urgency of urination Category: Medical Plan Yearly follow-up Continue tamsulosin Orders: Orders AMB Post Void Residual by ultrasound 08/06/24 N40.0 - Benign prostatic hyperplasia without lower urinary tract symptoms Patient Instructions: Imaging studies, laboratory and physical exam results were discussed and reviewed in detail. No major barriers to patient understanding were identified. An opportunity to ask questions regarding the treatment plan was provided. All questions were answered. The patient expressed understanding and agreement with the above treatment plan. The patient is aware they should contact our office by phone for worsening of their current condition or the appearance of new urologic symptoms. Compliance is encouraged with any medications and followup testing that is ordered. It is a privilege to participate in the urologic care of your patient. If you have any questions or concerns regarding treatment for the above conditions, or other urologic issues, please do not hesitate to contact me. The office telephone contact is [phone]. This note is constructed using voice recognition software. While every effort has been made to ensure accuracy hydramatic mechanic errors may have been included. Yours sincerely, Dr Brett Ruvalcaba MD, [facility] - Urology Providers of Expert, Compassionate Care for the Genitourinary System Coding Level of Care Code Est Pt Level 4 (98024) Diagnoses BPH (benign prostatic hyperplasia) N40.0 Urinary urgency R39.15 CPT Codes Post Residual Void - PVR CPT Code: 26857-Fbbs Void Residual by ultrasound ([id number])
== END 2024-08-06 16:32 | disposition home or self-care (01) ==
PROVIDERS: PCP Internal Medicine; Visit Provider Urology
DX: N40.0 Benign prostatic hyperplasia without lower urinary tract symptoms (principal); R39.15 Urgency of urination
CPT/HCPCS: 99214

== ENCOUNTER → 2024-08-06 15:09 | Outpatient (BNVA) | payer MEDICARE, MEDICAID, SELFPAY | PROVIDERS: PCP Internal Medicine; Visit Provider Urology | DX: N40.0 Benign prostatic hyperplasia without lower urinary tract symptoms (principal); R39.15 Urgency of urination | CPT/HCPCS: 51798; 99212 ==

== ENCOUNTER 2024-08-14 08:00 | Outpatient (REF) | payer MEDICARE, MEDICAID, SELFPAY ==
[2024-08-14 08:55] LABS: Estimated Average Glucose 183 mg/dL; Total Hemoglobin (HGBA1C) 3087.2851 umol/L
[2024-08-14 09:16] LABS: Alanine Aminotransferase 10 U/L (0-40); Albumin Level 3.8 g/dL (3.5-5.0); Alkaline Phosphatase 99 U/L (39-117); Anion Gap 10 (12-20); Aspartate Amino Transferase 12 U/L (5-37); Bilirubin Total 0.3 mg/dL (0.0-1.0); Blood Urea Nitrogen 24 mg/dL (9-16); Calcium 9.4 mg/dL (8.4-10.2); Carbon Dioxide 29 mmol/L (22-29); Chloride 110 mmol/L (96-108); Estimated Glomerular Filt Rate 55; Glucose Random 138 mg/dL (60-115); Potassium 3.7 mmol/L (3.3-5.1); Sodium 145 mmol/L (135-145); Total Protein 7.4 g/dL (6.5-8.0)
== END 2024-08-14 08:01 | disposition home or self-care (01) ==
LOC: HO.LAB 08:00
PROVIDERS: PCP Internal Medicine; Visit Provider Internal Medicine
DX: E11.40 Type 2 diabetes mellitus with diabetic neuropathy, unspecified (principal); E11.65 Type 2 diabetes mellitus with hyperglycemia; E78.00 Pure hypercholesterolemia, unspecified; R07.89 Other chest pain
CPT/HCPCS: 36415; 80053; 83036

== ENCOUNTER 2024-09-09 16:15 | Outpatient (AMB) | payer MEDICARE, MEDICAID, SELFPAY ==
[2024-09-09 16:16] VITALS: BP 140/82; PULSE 75; O2SAT 98; BMI 30.6
--- NOTE | 2024-09-09 16:16 | HO.NEPHOV ---
Vital Signs 09/09/24 16:16 Height 5 ft 8 in Weight 201 lb BMI 30.6 BP 140/82 H Blood Pressure Location Rt brachial Position Sitting Pulse 75 Pulse Source Pulse Oximeter Pulse Oximetry (%) 98 Oxygen Delivery Method Room Air Intake Visit Reasons: CKD/ Conf Director Of Securities And Real Estate Required: Yes Director Of Securities And Real Estate Services: Director Of Securities And Real Estate Present Accompanied by: Son Allergies codeine [CODEINE] Allergy (Unknown, Verified 09/09/24 16:19) UNKNOWN lisinopril Allergy (Unknown, Uncoded 06/20/24 15:25) choking Medication List - Last Reconciled 09/09/24 by Zan Campbell MD aspirin (Adult Low Dose Aspirin) 81 mg PO DAILY BD Nicole 2nd Gen Pen Needle (pen needle, diabetic) 5 times a day NS blood sugar diagnostic As directed cholecalciferol (vitamin D3) 25 mcg PO DAILY empagliflozin (Jardiance) 25 mg PO DAILY evolocumab (Repatha SureClick) 140 mg subcut Q2W ezetimibe 10 mg PO DAILY furosemide 80 mg PO BID insulin aspart U-100 (Novolog FlexPen U-100 Insulin aspart) 12 - 14 units subcut TID insulin glargine (Basaglar KwikPen U-100 Insulin) 24 units subcut BEDTIME isosorbide mononitrate ER 60 mg PO DAILY lancets (FreeStyle Lancets) As directed metolazone 2.5 mg PO .Once a week metoprolol succinate ER 100 mg PO DAILY nitroglycerin 0.4 mg sublingual One tab under the tongue every 5 minutes as needed for chest pain up to 3; pantoprazole 40 mg PO DAILY pen needle, diabetic (BD Ultra-Fine Nicole Pen Needle) As directed five times a day phenytoin sodium extended (Dilantin Extended) 200 mg PO BID pregabalin 300 mg PO BID rosuvastatin 40 mg PO DAILY tamsulosin 0.4 mg PO DAILY 90 days HPI Comments Details: Elderly man with a h/o CKD in a setting of CHF and CAD and DM Accompanied by family c/o Edema No dyspnea On high dose of Lasix Doing better today Lost 5- 6 lbs 07/11/24 c/o GIRALDO Gained 6 lbs 08/01/24 Dyspnea improved with Metolazone Still with edema 09/09/24 Feels better Lost 10 lbs since last visit Accompanied by son Mom administers meds PFS Medical History Mass of buttock Left buttock abscess Epidermal cyst Obesity due to excess calories CHF (congestive heart failure) Hypokalemia Diabetic nephropathy associated with type 2 diabetes mellitus CHF (congestive heart failure) Epilepsy Type 2 diabetes mellitus with hyperglycemia, with long-term current use of insulin Secondary hyperparathyroidism Diabetic neuropathy associated with type 2 diabetes mellitus CAD (coronary artery disease) (HFpEF) heart failure with preserved ejection fraction Hypertension Coronary stent patent BPH (benign prostatic hyperplasia) Dyslipidemia Neuropathy associated with endocrine disorder CKD (chronic kidney disease) Diabetes mellitus, type 2 Surgical History Stented coronary artery Hx of cardiac cath Family History Father Diabetes CVD (cardiovascular disease) Mother Diabetes CVD (cardiovascular disease) Brother Diabetes Son Thyroid disease Lung disease Psoriasis HTN (hypertension) Social History Household Members: Spouse, Family and Children Housing: Apartment Do you presently have visiting nurse or other home services: No Alcohol intake: never Patient Tobacco Use Status: Former Tobacco user Advance Directives Date on File: 05/18/21 service: No Current occupational status: retired Physical Exam Vital Signs: Last Vital Signs Pulse 75 09/09/24 16:16 BP 140/82 H 09/09/24 16:16 Pulse Ox 98 09/09/24 16:16 Oxygen Delivery Method Room Air 09/09/24 16:16 BMI result Body Mass Index 30.6 Awake. Comfortable. Neck is supple. Mucosa moist. Lungs bilateral scattered rales Heart S1-S2 heard no gallop. Abdomen soft. Extremities trace to 1 + edema. No involuntary movements. No myoclonus. Results Reviewed Nephrology Results: Hgb 11.9 g/dl (14.0-18.0) L 06/12/24 WBC 6.3 X10*3/uL (4.8-10.8) 06/12/24 Plt Count 229 X10*3/uL (160-400) 06/12/24 Sodium 145 mmol/L (135-145) 08/14/24 Potassium 3.7 mmol/L (3.3-5.1) 08/14/24 Chloride 110 mmol/L (96-108) H 08/14/24 Carbon Dioxide 29 mmol/L (22-29) 08/14/24 BUN 24 mg/dL (9-16) H 08/14/24 Creatinine 1.25 mg/dL (0.5-1.4) 08/14/24 Calcium 9.4 mg/dL (8.4-10.2) 08/14/24 PTH Intact 133.7 pg/mL (8.7-77.1) H 07/25/24 Assessment & Plan Assessment & Plan (1) Chronic heart failure with preserved ejection fraction (HFpEF): Code(s): I50.32 - Chronic diastolic (congestive) heart failure Category: Medical (2) CKD (chronic kidney disease): Code(s): N18.9 - Chronic kidney disease, unspecified Category: Medical (3) (HFpEF) heart failure with preserved ejection fraction: Code(s): I50.30 - Unspecified diastolic (congestive) heart failure Category: Medical Plan CKD in a setting of longstanding DM and CHF Volume status - Overload is improving Needs to stay on low salt diet. Discussed with family Keep Lasix 80 mg BID Keep Zaroxylin 2.5 mg ONCE a week Maintain BP < 130/80 Maintain A1C < 7% Would benefit from SGLT-2 inhibitor - continue with Jardiance Watch K while of Spironolactone Keep Vit D to correct deficiency Mild Anemia Stable. No indication for Epogen Orders: Orders Electrolytes 4 Weeks E87.1 - Hypo-osmolality and hyponatremia, I50.32 - Chronic diastolic (congestive) heart failure, N18.9 - Chronic kidney disease, unspecified Blood Urea Nitrogen 4 Weeks I50.32 - Chronic diastolic (congestive) heart failure, N18.9 - Chronic kidney disease, unspecified Creatinine 4 Weeks I50.32 - Chronic diastolic (congestive) heart failure, N18.9 - Chronic kidney disease, unspecified Coding Level of Care Code Est Pt Level 4 (86613) Diagnoses Chronic heart failure with preserved ejection fraction (HFpEF) I50.32 CKD (chronic kidney disease) N18.9 (HFpEF) heart failure with preserved ejection fraction I50.30
== END 2024-09-09 16:35 | disposition home or self-care (01) ==
PROVIDERS: PCP Internal Medicine; Visit Provider Internal Medicine Hypertension Specialist
DX: I50.32 Chronic diastolic (congestive) heart failure (principal); E11.22 Type 2 diabetes mellitus with diabetic chronic kidney disease; N18.9 Chronic kidney disease, unspecified
CPT/HCPCS: 99214

== ENCOUNTER → 2024-09-09 16:15 | Outpatient (BNVA) | payer MEDICARE, MEDICAID, SELFPAY | PROVIDERS: PCP Internal Medicine; Visit Provider Internal Medicine Hypertension Specialist | DX: I13.0 Hypertensive heart and chronic kidney disease with heart failure and stage 1 through stage 4 chronic kidney disease, or unspecified chronic kidney disease (principal); N18.9 Chronic kidney disease, unspecified; I50.32 Chronic diastolic (congestive) heart failure | CPT/HCPCS: 99212 ==

== ENCOUNTER 2024-10-08 14:42 | Outpatient (REF) | payer MEDICARE, MEDICAID, SELFPAY ==
[2024-10-08 16:32] LABS: Anion Gap 16 (12-20); Blood Urea Nitrogen 24 mg/dL (9-16); Carbon Dioxide 25 mmol/L (22-29); Chloride 106 mmol/L (96-108); Estimated Glomerular Filt Rate 56; Potassium 4.5 mmol/L (3.3-5.1); Sodium 142 mmol/L (135-145)
== END 2024-10-08 14:43 | disposition home or self-care (01) ==
LOC: HO.LAB 14:42
PROVIDERS: PCP Internal Medicine; Visit Provider Internal Medicine Hypertension Specialist
DX: E87.1 Hypo-osmolality and hyponatremia (principal); I50.32 Chronic diastolic (congestive) heart failure; N18.9 Chronic kidney disease, unspecified
CPT/HCPCS: 36415; 80051; 82565; 84520

== ENCOUNTER 2024-10-10 13:01 | Outpatient (AMB) | payer MEDICARE, MEDICAID, SELFPAY ==
--- NOTE | 2024-10-10 13:14 | HO.NEPHOV ---
Vital Signs 10/10/24 13:17 Height 5 ft 8 in Weight 206 lb BMI 31.3 BP 122/70 Blood Pressure Location Rt brachial Position Sitting Pulse 64 Pulse Source Pulse Oximeter Pulse Oximetry (%) 97 Oxygen Delivery Method Room Air Intake Visit Reasons: 6wk follow up w/labs/ Conf Clinical Registered Nurse Required: Yes Clinical Registered Nurse Name: [id number] Shira Accompanied by: Daughter Allergies codeine [CODEINE] Allergy (Unknown, Verified 10/10/24 13:21) UNKNOWN lisinopril Allergy (Unknown, Uncoded 06/20/24 15:25) choking Medication List - Last Reconciled 10/10/24 by Madeline Henley, DNP, [employer]-BC aspirin (Adult Low Dose Aspirin) 81 mg PO DAILY BD Nicole 2nd Gen Pen Needle (pen needle, diabetic) 5 times a day NS blood sugar diagnostic As directed cholecalciferol (vitamin D3) 25 mcg PO DAILY empagliflozin (Jardiance) 25 mg PO DAILY evolocumab (Repatha SureClick) 140 mg subcut Q2W ezetimibe 10 mg PO DAILY furosemide 80 mg PO BID insulin aspart U-100 (Novolog FlexPen U-100 Insulin aspart) 12 - 14 units subcut TID insulin glargine (Basaglar KwikPen U-100 Insulin) 24 units subcut BEDTIME isosorbide mononitrate ER 60 mg PO DAILY lancets (FreeStyle Lancets) As directed metolazone 2.5 mg PO .Once a week metoprolol succinate ER 100 mg PO DAILY nitroglycerin 0.4 mg sublingual One tab under the tongue every 5 minutes as needed for chest pain up to 3; pantoprazole 40 mg PO DAILY pen needle, diabetic (BD Ultra-Fine Nicole Pen Needle) As directed five times a day phenytoin sodium extended (Dilantin Extended) 200 mg PO BID pregabalin 300 mg PO BID rosuvastatin 40 mg PO DAILY tamsulosin 0.4 mg PO DAILY 90 days HPI Comments Details: Elderly man with a h/o CKD in a setting of CHF and CAD and DM Accompanied by daughter 07/11/24 c/o GIRALDO Gained 6 lbs 08/01/24 Dyspnea improved with Metolazone Still with edema 09/09/24 Feels better Lost 10 lbs since last visit Accompanied by son Mom administers meds 10/10/24 patient reports he is feeling well denies shortness of breath continues to have lower extremity edema had 5lb weight gain since last visit states he has been taking furosemide 80mg BID PO, but has not taken metolazone as instructed by Dr Campbell at 09/09/24 appt- thought he was not supposed to as he ran out no other concerns/complaints today [facility] Medical History Mass of buttock Left buttock abscess Epidermal cyst Obesity due to excess calories CHF (congestive heart failure) Hypokalemia Diabetic nephropathy associated with type 2 diabetes mellitus CHF (congestive heart failure) Epilepsy Type 2 diabetes mellitus with hyperglycemia, with long-term current use of insulin Secondary hyperparathyroidism Diabetic neuropathy associated with type 2 diabetes mellitus CAD (coronary artery disease) (HFpEF) heart failure with preserved ejection fraction Hypertension Coronary stent patent BPH (benign prostatic hyperplasia) Dyslipidemia Neuropathy associated with endocrine disorder CKD (chronic kidney disease) Diabetes mellitus, type 2 Surgical History Stented coronary artery Hx of cardiac cath Family History Father Diabetes CVD (cardiovascular disease) Mother Diabetes CVD (cardiovascular disease) Brother Diabetes Son Thyroid disease Lung disease Psoriasis HTN (hypertension) Social History Household Members: Spouse, Family and Children Housing: Apartment Do you presently have visiting nurse or other home services: No Alcohol intake: never Patient Tobacco Use Status: Former Tobacco user Advance Directives Date on File: 05/18/21 service: No Current occupational status: retired Review of Systems Const Denies headache(s) ENT Denies dizziness and Denies headache(s) Card Denies chest pain, Denies leg edema, Denies lightheadedness and Denies dyspnea on exertion Resp Denies cough and Denies dyspnea on exertion GI Denies abdominal pain, Denies constipation, Denies diarrhea, Denies nausea and Denies vomiting Denies hematuria, Denies oliguria, Denies difficulty urinating, Denies dysuria, Denies flank pain and Denies urinary frequency Musc Denies arthralgias and Denies joint swelling Skin/Breast Denies rash Neuro Denies dizziness and Denies headache(s) Physical Exam Const General: no acute distress, alert and awake Neck Neck: Yes no JVD Resp Effort & Inspection: normal respiratory effort and able to speak in complete sentences Auscultation: clear to auscultation bilaterally Cardio Jugular venous distension: no JVD Rate: regular rate Rhythm: regular rhythm Heart sounds: S1 normal heart sound present and S2 normal heart sound present GI Palpation (GI): Soft to palpation and nontender General: Yes no CVA tenderness Back/Spine/Pelvis Back: no CVA tenderness Skin Lesions: no lesions Rashes: no rashes Extrem General: Yes edema (Bilateral: trace ankle edema, pitting; +1 pedal edema. ) Results Reviewed Nephrology Results: Sodium 142 mmol/L (135-145) 10/08/24 Potassium 4.5 mmol/L (3.3-5.1) 10/08/24 Chloride 106 mmol/L (96-108) 10/08/24 Carbon Dioxide 25 mmol/L (22-29) 10/08/24 BUN 24 mg/dL (9-16) H 10/08/24 Creatinine 1.23 mg/dL (0.5-1.4) 10/08/24 Calcium 9.4 mg/dL (8.4-10.2) 08/14/24 PTH Intact 133.7 pg/mL (8.7-77.1) H 07/25/24 Assessment & Plan Assessment & Plan (1) Chronic heart failure with preserved ejection fraction (HFpEF): Code(s): I50.32 - Chronic diastolic (congestive) heart failure Category: Medical (2) CKD (chronic kidney disease): Code(s): N18.9 - Chronic kidney disease, unspecified Category: Medical Qualifiers: Chronic kidney disease stage: stage 3 (moderate) Chronic kidney disease stage 3 subtype: stage 3a (GFR 45-59) Qualified Code(s): N18.31 - Chronic kidney disease, stage 3a (3) (HFpEF) heart failure with preserved ejection fraction: Code(s): I50.30 - Unspecified diastolic (congestive) heart failure Category: Medical Qualifiers: Heart failure chronicity: unspecified Qualified Code(s): I50.30 - Unspecified diastolic (congestive) heart failure Plan CKD in a setting of longstanding DM and CHF volume status has worsened since last visit with weight gain and continued LE edema, has not been taking metolazone Needs to stay on low salt diet. Discussed with family Keep Lasix 80 mg BID Zaroxylin 2.5 mg ONCE a week - sent new rx Maintain BP < 130/80 Maintain A1C < 7% Would benefit from SGLT-2 inhibitor - continue with Jardiance Watch K while of Spironolactone Keep Vit D to correct deficiency Mild Anemia Stable. No indication for Epogen He will return to the office in 2 months, and get lab work prior. Orders: Orders Basic Metabolic Panel 2 Months N18.30 - Chronic kidney disease, stage 3 unspecified Medications: Changed From metolazone 2.5 mg PO .Once a week 30 tabs 0RF Edema To metolazone Take one 2.5mg tablet by mouth once weekly. 2.5 mg PO .Once a week 30 tabs 0RF Edema Coding Level of Care Code Est Pt Level 3 (79343) Diagnoses Chronic heart failure with preserved ejection fraction (HFpEF) I50.32 Stage 3a chronic kidney disease N18.31 Chronic kidney disease stage: stage 3 (moderate) Chronic kidney disease stage 3 subtype: stage 3a (GFR 45-59) Heart failure with preserved ejection fraction, unspecified HF chronicity I50.30 Heart failure chronicity: unspecified
[2024-10-10 13:17] VITALS: BP 122/70; PULSE 64; O2SAT 97; BMI 31.3
== END 2024-10-10 13:45 | disposition home or self-care (01) ==
PROVIDERS: PCP Internal Medicine; Visit Provider Nurse Practitioner Family
DX: I50.32 Chronic diastolic (congestive) heart failure (principal); N18.31 Chronic kidney disease, stage 3a
CPT/HCPCS: 99213

== ENCOUNTER → 2024-10-10 13:01 | Outpatient (BNVA) | payer MEDICARE, MEDICAID, SELFPAY | PROVIDERS: PCP Internal Medicine; Visit Provider Nurse Practitioner Family | DX: E11.22 Type 2 diabetes mellitus with diabetic chronic kidney disease (principal); I13.0 Hypertensive heart and chronic kidney disease with heart failure and stage 1 through stage 4 chronic kidney disease, or unspecified chronic kidney disease; I50.32 Chronic diastolic (congestive) heart failure; N18.31 Chronic kidney disease, stage 3a | CPT/HCPCS: 99212 ==

== ENCOUNTER 2024-10-27 03:31 | Emergency (ER) | payer MEDICARE, MEDICAID, SELFPAY ==
[2024-10-27 03:34] VITALS: BP 166/77; PULSE 68; RESP 16; TEMP 36.6; O2SAT 99; BMI 34.9
--- NOTE | 2024-10-27 04:38 | ED.SKABFB ---
HPI - Skin/Abscess/Foreign Bdy General Chief complaint: Skin/Abscess/Foreign Body Stated complaint: cyst/abscess on back Time Seen by Provider: 10/27/24 03:53 Source: patient Mode of arrival: ambulatory Limitations: no limitations History of Present Illness ED Provider: Dr. Whitney Johnson HPI narrative: Patient comes to the emergency room complaining of a possible pilonidal cyst. Patient states it has been hurting for about 2 days. Patient denies any fever chills. Patient states that he has had pilonidal cysts multiple times, but is not a surgical candidate. Related Data Home Medications ?Medication ?Instructions ?Recorded ?Confirmed aspirin 81 mg tablet,delayed 81 mg PO DAILY 08/12/20 09/09/24 release (Adult Low Dose Aspirin) pantoprazole 40 mg tablet,delayed 40 mg PO DAILY 08/12/20 09/09/24 release rosuvastatin 40 mg tablet 40 mg PO DAILY 08/12/20 09/09/24 blood sugar diagnostic #10 ea 09/15/20 09/09/24 lancets 28 gauge (FreeStyle #100 ea 07/20/22 09/09/24 Lancets) ezetimibe 10 mg tablet 10 mg PO DAILY 03/11/24 09/09/24 metoprolol succinate 100 mg 100 mg PO DAILY 03/11/24 09/09/24 tablet,extended release 24 hr pregabalin 300 mg capsule 300 mg PO BID 03/11/24 09/09/24 phenytoin sodium extended 100 mg 200 mg PO BID 05/07/24 09/09/24 capsule (Dilantin Extended) insulin aspart U-100 100 unit/mL 12 - 14 unit subcut TID 05/08/24 09/09/24 (3 mL) subcutaneous pen (Novolog FlexPen U-100 Insulin aspart) insulin glargine 100 unit/mL (3 24 unit subcut BEDTIME 05/08/24 09/09/24 mL) subcutaneous pen (Basaglar KwikPen U-100 Insulin) empagliflozin 25 mg tablet 25 mg PO DAILY 06/20/24 09/09/24 (Jardiance) Previous Rx's ?Medication ?Instructions ?Recorded furosemide 80 mg tablet 80 mg PO BID #180 tabs 12/29/20 nitroglycerin 0.4 mg sublingual 0.4 mg sublingual .COMPLEX #75 tabs 02/19/21 tablet pen needle, diabetic 32 gauge x #150 ea 02/15/22 (BD Ultra-Fine Nicole Pen Needle) BD Nicole 2nd Gen Pen Needle 32 #200 ea 04/19/22 gauge x (pen needle, diabetic) cholecalciferol (vitamin D3) 25 25 mcg PO DAILY #30 caps 12/05/23 mcg (1,000 unit) capsule isosorbide mononitrate 60 mg 60 mg PO DAILY #90 tabs 04/09/24 tablet,extended release 24 hr evolocumab 140 mg/mL subcutaneous 140 mg subcut Q2W #6 mL 07/25/24 pen injector (ev3, [employer]) tamsulosin 0.4 mg capsule 0.4 mg PO DAILY 90 days #90 caps 08/08/24 metolazone 2.5 mg tablet 2.5 mg PO .Once a week Edema #30 10/10/24 tabs cephalexin 500 mg capsule 500 mg PO BID #14 caps 10/27/24 doxycycline hyclate 100 mg capsule 100 mg PO DAILY #14 caps 10/27/24 tramadol 50 mg tablet 50 mg PO BID PRN pain #5 tabs 10/27/24 Allergies Allergy/AdvReac Type Severity Reaction Status Date / Time codeine [CODEINE] Allergy Unknown UNKNOWN Verified 10/27/24 03:43 lisinopril Allergy Unknown choking Uncoded 10/27/24 03:43 Review of Systems Review of Systems: Constitutional : No Weight loss, No Fever, No Chills, No Night Sweats, No Fatigue, No Malaise ENT/Mouth : No Hearing loss, No Ear Pain, No Nasal Congestion, No Sinus Pain, No Hoarseness, No sore throat, No Rhinorrhea, No Swallowing Difficulty Eyes: No Eye Pain, No Swelling, No Redness, No Foreign Body, No Discharge, No Vision Changes Cardiovascular : No Chest Pain, No SOB, No Dyspnea on Exertion, No Orthopnea, No Edema, No Palpitations Respiratory : No Cough, No Sputum, No Wheezing, No Smoke Exposure, No Dyspnea Gastrointestinal : No Nausea, No Vomiting, No Diarrhea, No Constipation, No abdominal Pain, No Hematochezia, No Melena Genitourinary : no irregular bleeding, No Dysuria, No Urinary Frequency, No Hematuria, No Urinary Incontinence, No Urgency, No Flank Pain, No Urinary Flow Changes, No Hesitancy Musculoskeletal : No joint pain, No Myalgias, No Joint Swelling Skin : Complaining of pain in the top side of the buttocks. Neuro : No Weakness, No Numbness, No Paresthesias, No Loss of Consciousness, No Dizziness, No Headache Psych : No Anxiety/Panic, No Depression, No SI/HI/AH/VH, No Social Issues, Heme/Lymph: No Bruising, No Bleeding,No Lymphadenopathy Endocrine : No Polyuria, No Polydipsia, No Temperature Intolerance [facility] Past Medical History Medical History Mass of buttock Left buttock abscess Epidermal cyst Obesity due to excess calories CHF (congestive heart failure) Hypokalemia Diabetic nephropathy associated with type 2 diabetes mellitus CHF (congestive heart failure) Epilepsy Type 2 diabetes mellitus with hyperglycemia, with long-term current use of insulin Secondary hyperparathyroidism Diabetic neuropathy associated with type 2 diabetes mellitus CAD (coronary artery disease) (HFpEF) heart failure with preserved ejection fraction Hypertension Coronary stent patent BPH (benign prostatic hyperplasia) Dyslipidemia Neuropathy associated with endocrine disorder CKD (chronic kidney disease) Diabetes mellitus, type 2 Surgical History Stented coronary artery Hx of cardiac cath Family History Family History Father Diabetes CVD (cardiovascular disease) Mother Diabetes CVD (cardiovascular disease) Brother Diabetes Son Thyroid disease Lung disease Psoriasis HTN (hypertension) Social History Social History Household Members: Spouse, Family and Children Housing: Apartment Do you presently have visiting nurse or other home services: No Alcohol intake: never Patient Tobacco Use Status: Former Tobacco user Advance Directives Date on File: 05/18/21 Do you have a plan to hurt others: No Plan service: No Current occupational status: retired Physical Exam Vital Signs: Vital Signs: Last Vital Signs Temp 97.9 F 10/27/24 03:34 Pulse 68 10/27/24 03:34 Resp 16 10/27/24 03:34 BP 166/77 H 10/27/24 03:34 Pulse Ox 99 10/27/24 03:34 O2 Del Method Room Air 10/27/24 03:34 BMI result Body Mass Index 34.9 Const: Other: Appearance: Alert. Oriented X3. No acute distress. Eyes: Pupils equal, round and reactive to light. ENT: Pharynx normal. Neck: Normal inspection. Neck supple. No lymph nodes noted. No crepitus CVS: Normal heart rate and rhythm. Pulses normal. Normal S1 and S2 Respiratory: No respiratory distress. Breath sounds normal. No Wheezing. No rales Abdomen: Soft and nontender. No rigidity. No distention. Skin: Skin warm and dry. Normal skin color. Normal skin turgor. There is no erythema, no skin bulging on the buttocks or above the gluteal cleft. Bedside ultrasound does not show any significant amount pus/fluid/cyst formation. Extremities: No lower extremity edema. No Lacerations. No Rash Neuro: Oriented X 3. No motor deficit. No sensory deficit. Moving all extremities. No slurred speech. CN 2 through 12 grossly intact Psych: calm, cooperative, normal affect Medical Decision Making Medical Decision Making MDM Narrative: On bedside ultrasound, I did not see any significant collection of fluid/pus or assist. I pressed pretty hard in the area, patient did not complain of pain. There is no sinus cellulitis of the buttocks either. Is possible that patient may be starting to develop assist. However there is nothing to be drained at this time. Patient was given cephalexin, doxycycline and tramadol. I discussed with the patient that is possible that an abscess may be developing, and it may get buried within the next few days. We will treat with empiric antibiotic. Differential Diagnosis Differential Diagnoses: The differential diagnosis associated with the presentation includes Discharge Plan Discharge Clinical Impression: Buttock pain Patient Disposition: Home, Self-Care Instructions: Pilonidal Cyst (ED) Additional Instructions: Please follow-up with your primary care physician tomorrow. If you have any worsening or new symptoms, please return to the emergency room or call 911 Prescriptions: New cephalexin 500 mg capsule 500 mg PO BID Qty: 14 0RF doxycycline hyclate 100 mg capsule 100 mg PO DAILY Qty: 14 0RF tramadol 50 mg tablet 50 mg PO BID PRN (Reason: pain) Qty: 5 0RF No Action furosemide 80 mg tablet 80 mg PO BID Qty: 180 1RF nitroglycerin 0.4 mg tablet, sublingual 0.4 mg sublingual .COMPLEX Qty: 75 3RF Rx Instructions: 0.4 mg sublingual One tab under the tongue every 5 minutes as needed for chest pain up to 3; Repatha SureClick 140 mg/mL pen injector 140 mg subcut Q2W Qty: 6 3RF tamsulosin 0.4 mg capsule 0.4 mg PO DAILY 90 Days Qty: 90 1RF phenytoin sodium extended [Dilantin Extended] 100 mg capsule 200 mg PO BID insulin aspart U-100 [Novolog FlexPen U-100 Insulin] 100 unit/mL (3 mL) insulin pen 12 - 14 unit subcut TID insulin glargine [Basaglar KwikPen U-100 Insulin] 100 unit/mL (3 mL) insulin pen 24 unit subcut BEDTIME (DME) blood sugar diagnostic Strip See Rx Instructions Not Applicable TID Qty: 10 Rx Instructions: As directed aspirin [Adult Low Dose Aspirin] 81 mg tablet,delayed release (DR/EC) 81 mg PO DAILY rosuvastatin 40 mg tablet 40 mg PO DAILY pantoprazole 40 mg tablet,delayed release (DR/EC) 40 mg PO DAILY (DME) pen needle, diabetic [BD Ultra-Fine Nicole Pen Needle] 32 gauge x 5/32 needle See Rx Instructions .ROUTE .MEDSUPPLY Qty: 150 11RF Rx Instructions: As directed five times a day (DME) pen needle, diabetic [BD Nicole 2nd Gen Pen Needle] 32 gauge x 5/32 needle See Rx Instructions .MEDSUPPLY Qty: 200 10RF Rx Instructions: 5 times a day (DME) lancets [FreeStyle Lancets] 28 gauge misc See Rx Instructions .ROUTE TID Qty: 100 Rx Instructions: As directed cholecalciferol (vitamin D3) 25 mcg (1,000 unit) capsule 25 mcg PO DAILY Qty: 30 3RF isosorbide mononitrate 60 mg tablet extended release 24 hr 60 mg PO DAILY Qty: 90 3RF Rx Instructions: Dose increased Jardiance 25 mg tablet 25 mg PO DAILY metolazone 2.5 mg tablet 2.5 mg PO .Once a week Qty: 30 0RF Rx Instructions: Take one 2.5mg tablet by mouth once weekly. ezetimibe 10 mg tablet 10 mg PO DAILY metoprolol succinate 100 mg tablet extended release 24 hr 100 mg PO DAILY pregabalin 300 mg capsule 300 mg PO BID Print Language: Latvian
[2024-10-27] MEDS: cephALEXin 500 MG CAPSULE PO (04:52)
[2024-10-27] MEDS: traMADoL HCL 50 MG TABLET PO (04:52)
[2024-10-27] MEDS: Doxycycline Monohydrate 100 MG CAPSULE PO (04:52)
[2024-10-27 04:58] VITALS: BP 166/77; PULSE 68; RESP 16; TEMP 36.6; O2SAT 99
== END 2024-10-27 05:00 | disposition home or self-care (01) ==
LOC: HO.ED 04:58
PROVIDERS: Emergency Provider Emergency Medicine
DX: L05.01 Pilonidal cyst with abscess (principal); Z87.891 Personal history of nicotine dependence; Z79.899 Other long term (current) drug therapy
CPT/HCPCS: 99283; 99284

== ENCOUNTER 2024-11-18 15:41 | Emergency (ER) | payer MEDICARE, MEDICAID, SELFPAY ==
--- NOTE | ~2024-11-18 | CT_ITS ---
CLINICAL HISTORY: head strike CT head without contrast Comparison: CT/REG/SR - CT HEAD FOR STROKE - 05/07/24 17:41 EDT Findings: No intra-axial mass, midline shift, hydrocephalus, or acute hemorrhage. There is atrophy. Nonspecific supratentorial white matter hypodensities bilaterally most suggestive of chronic small-vessel ischemic changes. No territorial infarct. Nonacute very small lacunar infarcts in the right basal ganglia, left external capsule and in the fiordaliza. Atherosclerotic vascular disease. Mild mucosal thickening in left maxillary sinus and otherwise sinuses and mastoid air cells are clear. The orbits are unremarkable. No acute skull fracture. IMPRESSION: 1. No acute intracranial findings. 2. Stable nonacute findings as described. This document has been electronically signed by: Emma Stevenson MD on 11/18/2024 18:06:17
--- NOTE | ~2024-11-18 | CT_ITS ---
CLINICAL HISTORY: fall + headstrike CT cervical spine without contrast Comparison: CT/REG - CT CERVICAL SPINE WO CON - 05/18/21 05:14 EDT Findings: Normal vertebral body alignment. Degenerative changes especially at C5-6 and C6-7 levels with multilevel facet arthropathy. No acute fractures or dislocations. Prevertebral soft tissues are within normal limits. Thyroid within normal limits. Mild mucosal thickening in left maxillary antrum and minimal mucosal thickening in right maxillary antrum. No consolidation or effusion at the lung apices. IMPRESSION: No acute findings. This document has been electronically signed by: Emma Stevenson MD on 11/18/2024 18:11:07
[2024-11-18 16:44] VITALS: BP 137/56; PULSE 67; RESP 18; TEMP 36.8; O2SAT 97; BMI 34.1
--- NOTE | 2024-11-18 16:48 | ED_ITS ---
HPI - Head Injury General Chief complaint: Fall Stated complaint: Fall - head injury Time Seen by Provider: 11/18/24 21:59 Source: patient, family and old records reviewed Mode of arrival: wheelchair Limitations: no limitations History of Present Illness ED Provider: BEN HPI Narrative: 84 yo male who presents from home with his son - has PMH of CAD, CHF with chronic leg edema, HLD, HTN, IDDM, CKD, BPH, no thinners who presents after fall using walker. Son told him not to get up when he brought his mom here for a doctors appointment. The patient then proceeded to get up from the car and states he lost his balance and felt a little dizzy. He fell backwards did hit his head but no LOC. He is at baseline now and is hungry and wants to go home. He states he is fine. Son notes this has happened before. They do not want to stay in the hospital and they want to go home. 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) Mechanism of Injury: fall Place: outdoors Loss of Consciousness: no Location of injury: occipital Severity: mild Radiation: none Other Injuries: none Associated symptoms: denies other symptoms Related Data Home Medications ?Medication ?Instructions ?Recorded ?Confirmed aspirin 81 mg tablet,delayed 81 mg PO DAILY 08/12/20 09/09/24 release (Adult Low Dose Aspirin) pantoprazole 40 mg tablet,delayed 40 mg PO DAILY 08/12/20 09/09/24 release rosuvastatin 40 mg tablet 40 mg PO DAILY 08/12/20 09/09/24 blood sugar diagnostic #10 ea 09/15/20 09/09/24 lancets 28 gauge (FreeStyle #100 ea 07/20/22 09/09/24 Lancets) ezetimibe 10 mg tablet 10 mg PO DAILY 03/11/24 09/09/24 metoprolol succinate 100 mg 100 mg PO DAILY 03/11/24 09/09/24 tablet,extended release 24 hr pregabalin 300 mg capsule 300 mg PO BID 03/11/24 09/09/24 phenytoin sodium extended 100 mg 200 mg PO BID 05/07/24 09/09/24 capsule (Dilantin Extended) insulin aspart U-100 100 unit/mL 12 - 14 unit subcut TID 05/08/24 09/09/24 (3 mL) subcutaneous pen (Novolog FlexPen U-100 Insulin aspart) insulin glargine 100 unit/mL (3 24 unit subcut BEDTIME 05/08/24 09/09/24 mL) subcutaneous pen (Basaglar KwikPen U-100 Insulin) empagliflozin 25 mg tablet 25 mg PO DAILY 06/20/24 09/09/24 (Jardiance) Previous Rx's ?Medication ?Instructions ?Recorded furosemide 80 mg tablet 80 mg PO BID #180 tabs 12/29/20 nitroglycerin 0.4 mg sublingual 0.4 mg sublingual .COMPLEX #75 tabs 02/19/21 tablet pen needle, diabetic 32 gauge x #150 ea 02/15/22 (BD Ultra-Fine Nicole Pen Needle) BD Nicole 2nd Gen Pen Needle 32 #200 ea 04/19/22 gauge x (pen needle, diabetic) cholecalciferol (vitamin D3) 25 25 mcg PO DAILY #30 caps 12/05/23 mcg (1,000 unit) capsule isosorbide mononitrate 60 mg 60 mg PO DAILY #90 tabs 04/09/24 tablet,extended release 24 hr evolocumab 140 mg/mL subcutaneous 140 mg subcut Q2W #6 mL 07/25/24 pen injector (Darius Trujilloick) tamsulosin 0.4 mg capsule 0.4 mg PO DAILY 90 days #90 caps 08/08/24 metolazone 2.5 mg tablet 2.5 mg PO .Once a week Edema #30 10/10/24 tabs cephalexin 500 mg capsule 500 mg PO BID #14 caps 10/27/24 doxycycline hyclate 100 mg capsule 100 mg PO DAILY #14 caps 10/27/24 tramadol 50 mg tablet 50 mg PO BID PRN pain #5 tabs 10/27/24 Allergies Allergy/AdvReac Type Severity Reaction Status Date / Time codeine [CODEINE] Allergy Unknown UNKNOWN Verified 11/18/24 16:46 lisinopril Allergy Unknown choking Uncoded 10/27/24 03:43 Review of Systems 2 Review of Systems: Constitutional : No Fever, No Chills, No Fatigue ENT/Mouth : No sore throat, No Rhinorrhea Eyes: No Eye Pain, No Swelling, No Redness Cardiovascular : No Chest Pain, No SOB, No Dyspnea on Exertion Respiratory : No Cough, No Sputum Gastrointestinal : No Nausea, No Vomiting, No Diarrhea, No abdominal Pain Genitourinary : No Dysuria, No Urinary Frequency, No Hematuria, Musculoskeletal : No joint pain, No Myalgias, No Joint Swelling Skin : No Skin Lesions, No rash Neuro : No Weakness, No Numbness, No Dizziness, no Headache Psych : No Anxiety/Panic, No Depression All other systems reviewed and are negative PMFSH Past Medical History Attestation statement: The following information was validated with the patient. Source: old records reviewed Medical History Mass of buttock Left buttock abscess Epidermal cyst Obesity due to excess calories CHF (congestive heart failure) Hypokalemia Diabetic nephropathy associated with type 2 diabetes mellitus CHF (congestive heart failure) Epilepsy Type 2 diabetes mellitus with hyperglycemia, with long-term current use of insulin Secondary hyperparathyroidism Diabetic neuropathy associated with type 2 diabetes mellitus CAD (coronary artery disease) (HFpEF) heart failure with preserved ejection fraction Hypertension Coronary stent patent BPH (benign prostatic hyperplasia) Dyslipidemia Neuropathy associated with endocrine disorder CKD (chronic kidney disease) Diabetes mellitus, type 2 Surgical History Stented coronary artery Hx of cardiac cath Family History Family History Father Diabetes CVD (cardiovascular disease) Mother Diabetes CVD (cardiovascular disease) Brother Diabetes Son Thyroid disease Lung disease Psoriasis HTN (hypertension) Social History Social History Household Members: Spouse, Family and Children Housing: Apartment Do you presently have visiting nurse or other home services: No Alcohol intake: never Patient Tobacco Use Status: Former Tobacco user Advance Directives Date on File: 05/18/21 service: No Current occupational status: retired Physical Exam 2 Vital Signs: Vital Signs: Last Vital Signs Temp 97.9 F 11/18/24 21:49 Pulse 68 11/18/24 21:49 Resp 20 11/18/24 21:49 BP 181/45 H 11/18/24 21:49 Pulse Ox 99 11/18/24 21:49 O2 Del Method Room Air 11/18/24 21:49 BMI result Body Mass Index 34.1 Appearance: Alert. Oriented X3. No acute distress. Eyes: Pupils equal, round and reactive to light. ENT: Pharynx normal. atraumatic Neck: Normal inspection. Neck supple. CVS: Normal heart rate and rhythm. Pulses normal. Respiratory: No respiratory distress. Breath sounds normal. Abdomen: Soft and nontender. Skin: Skin warm and dry. Normal skin color. Normal skin turgor. Extremities: 1+ bilateral pitting lower extremity edema. No calf ttp Neuro: Oriented X 3. No motor deficit. No sensory deficit. CN2-12 intact Course Course Course Narrative: This is an RME: Additional HPI, ROS, PE not included below will be deferred to primary provider. RME assessment and note performed by: Kathrin Sheppard PA-C This is a 84-year-old male, Turkish-speaking, with a history of seizures on phenytoin, type 2 diabetes mellitus on insulin, essential hypertension, obstructive sleep apnea (not tolerating CPAP), CAD, dyslipidemia, CKD and CHF, who presents emergency department with concerns for head strike status post mechanical fall which occurred today. He is alert and oriented x4. Plan: Labs, CT head/neck further ER eval needed Medical Decision Making Medical Decision Making [facility] Narrative: 84 yo male who presents from home with his son - has PMH of CAD, CHF with chronic leg edema, HLD, HTN, IDDM, CKD, BPH, no thinners who got up and then lost his balance and felt a little dizzy no recent illness, no GIB symptoms, no CP/SOB he has waited in the waiting room for a while I discussed results he states he is fine and wants to go home. At this time I did discuss if they were concerned about repeat falls and if they want to get admitted give his age and history but they both decline. Son states he will bring him back with any concerns. Differential Diagnosis Differential Diagnoses: The differential diagnosis associated with the presentation includes head trauma, anemia, dehydration denies CP/SOB doubt ACS/VTE denies GIB symptoms states this has happened before suspect he is getting up too fast head injury Admission/Observation Consideration of admission/observation: Escalation of care including admission/observation considered wants to go home states he feels fine son reports he wants to take him home they will return for any worsening symptoms Lab Data [facility] Lab Attestation statement: I reviewed the patient's lab results. 11/18/24 18:20 11/18/24 18:20 Labs: Lab Results 11/18/24 Range/Units 18:20 WBC 5.5 (4.8-10.8) X10*3/uL RBC 4.46 L (4.60-5.80) X10*6/uL Hgb 11.8 L (14.0-18.0) g/dl Hct 37.3 L (42.0-52.0) % MCV 83.6 (80.0-98.0) fL MCH 26.5 L (27.0-33.0) pg MCHC 31.6 (31.0-36.0) g/dl RDW 16.9 H (11.0-16.0) % Plt Count 182 (160-400) X10*3/uL MPV 10.5 (9.4-12.4) fL Immature Gran % (Auto) 0.2 (0.0-0.4) % Neut % (Auto) 53.8 (45-73) % Lymph % (Auto) 26.7 (20-40) % [place] % (Auto) 11.6 H (2-11) % Eos % (Auto) 6.4 H (0-4) % Baso % (Auto) 1.3 (0-2) % Lymph # (Auto) 1.5 (1.2-4.9) X10*3/uL [place] # (Auto) 0.6 (0.1-1.2) X10*3/uL Eos # (Auto) 0.4 (0.0-0.4) X10*3/uL Baso # (Auto) 0.1 (0.0-0.2) X10*3/uL Abs Immat Gran (auto) 0.01 (0.00-0.03) X10*3/uL Absolute Neuts (auto) 3.0 (2.0-8.3) x10*3/uL Absolute Nucleated RBC 0.000 (0.0-0.012) X10*3/uL Nucleated RBC % (auto) 0.0 (0.0-0.2) /100WBC Sodium 144 (135-145) mmol/L Potassium 3.9 (3.3-5.1) mmol/L Chloride 107 (96-108) mmol/L Carbon Dioxide 27 (22-29) mmol/L Anion Gap 14 (12-20) BUN 28 H (9-16) mg/dL Creatinine 1.12 (0.5-1.4) mg/dL Estim Creat Clear Calc 54.1 Estimated GFR > 60 Random Glucose 178 H (60-115) mg/dL Calcium 8.8 D (8.4-10.2) mg/dL Magnesium 2.4 (1.6-2.6) mg/dL Total Bilirubin 0.1 (0.0-1.0) mg/dL Direct Bilirubin < 0.2 (0.0-0.5) mg/dL AST 18 (5-37) U/L ALT 10 (0-40) U/L Alkaline Phosphatase 93 (39-117) U/L Troponin I High Sens 3.4 D (<3.5-35.0) ng/L Total Protein 7.6 (6.5-8.0) g/dL Albumin 3.7 (3.5-5.0) g/dL Independent Interpretation I performed an independent interpretation of an: EKG and CT Scan (no trauma) Interpretation: Rate: 67 Rhythm: NSR 1st degree AVB Icard: normal Normal P waves. 1st degree Normal QRS complex. ST T wave : no ODALIS qTC: 437 prior studies: no change from prior The study has been interpreted contemporaneously by me. . Radiology Impression Discussion of test interpretation with radiology: I have reviewed the radiologist's reading. Independent Historian Clinical information obtained from an independent historian. History obtained from or confirmed by: Other (son) External Record Review External record reviewed: Inpatient record and Outpatient record Discharge Plan Discharge Clinical Impression: Dizziness Patient Disposition: Home, Self-Care Instructions: Dizziness (ED) Additional Instructions: labs and CT scan reassuring no signs of trauma or bleeding, no fracture at this time after discussion if he complaints of anymore dizziness please return to the ED get up slowly and when you are about to stand up sit on edge of chair and wait 1 min before you get up. Prescriptions: No Action furosemide 80 mg tablet 80 mg PO BID Qty: 180 1RF nitroglycerin 0.4 mg tablet, sublingual 0.4 mg sublingual .COMPLEX Qty: 75 3RF Rx Instructions: 0.4 mg sublingual One tab under the tongue every 5 minutes as needed for chest pain up to 3; Repatha SureClick 140 mg/mL pen injector 140 mg subcut Q2W Qty: 6 3RF tamsulosin 0.4 mg capsule 0.4 mg PO DAILY 90 Days Qty: 90 1RF cephalexin 500 mg capsule 500 mg PO BID Qty: 14 0RF doxycycline hyclate 100 mg capsule 100 mg PO DAILY Qty: 14 0RF tramadol 50 mg tablet 50 mg PO BID PRN (Reason: pain) Qty: 5 0RF phenytoin sodium extended [Dilantin Extended] 100 mg capsule 200 mg PO BID insulin aspart U-100 [Novolog FlexPen U-100 Insulin] 100 unit/mL (3 mL) insulin pen 12 - 14 unit subcut TID insulin glargine [Basaglar KwikPen U-100 Insulin] 100 unit/mL (3 mL) insulin pen 24 unit subcut BEDTIME (DME) blood sugar diagnostic Strip See Rx Instructions Not Applicable TID Qty: 10 Rx Instructions: As directed aspirin [Adult Low Dose Aspirin] 81 mg tablet,delayed release (DR/EC) 81 mg PO DAILY rosuvastatin 40 mg tablet 40 mg PO DAILY pantoprazole 40 mg tablet,delayed release (DR/EC) 40 mg PO DAILY (DME) pen needle, diabetic [BD Ultra-Fine Nicole Pen Needle] 32 gauge x 5/32 needle See Rx Instructions .ROUTE .MEDSUPPLY Qty: 150 11RF Rx Instructions: As directed five times a day (DME) pen needle, diabetic [BD Nicole 2nd Gen Pen Needle] 32 gauge x 5/32 needle See Rx Instructions .MEDSUPPLY Qty: 200 10RF Rx Instructions: 5 times a day (DME) lancets [FreeStyle Lancets] 28 gauge misc See Rx Instructions .ROUTE TID Qty: 100 Rx Instructions: As directed cholecalciferol (vitamin D3) 25 mcg (1,000 unit) capsule 25 mcg PO DAILY Qty: 30 3RF isosorbide mononitrate 60 mg tablet extended release 24 hr 60 mg PO DAILY Qty: 90 3RF Rx Instructions: Dose increased Jardiance 25 mg tablet 25 mg PO DAILY metolazone 2.5 mg tablet 2.5 mg PO .Once a week Qty: 30 0RF Rx Instructions: Take one 2.5mg tablet by mouth once weekly. ezetimibe 10 mg tablet 10 mg PO DAILY metoprolol succinate 100 mg tablet extended release 24 hr 100 mg PO DAILY pregabalin 300 mg capsule 300 mg PO BID Print Language: Turkish
--- NOTE | 2024-11-18 16:50 | ECG_ITS ---
Test Reason : DIZZINESS Blood Pressure : */* mmHG Vent. Rate : 67 BPM Atrial Rate : * BPM P-R Int : * ms QRS Dur : 92 ms QT Int : 414 ms P-R-T Axes : * 2 55 degrees QTcB Int : 437 ms Normal sinus rhythm with 1st degree A-V block Otherwise normal ECG When compared with ECG of 12-Jun-2024 04:32, No significant changes seen Referred By: Kathrin Sheppard Electronically Signed By: JEANIE FONTENOT MD
[2024-11-18 18:24] LABS: MANUAL DIFF FLAG NO
[2024-11-18 18:25] LABS: Basophils Absolute Auto 0.1 X10*3/uL (0.0-0.2); Basophils Percent Auto 1.3 % (0-2); Eosinophils Absolute Auto 0.4 X10*3/uL (0.0-0.4); Eosinophils Percent Auto 6.4 % (0-4); Hematocrit 37.3 % (42.0-52.0); Hemoglobin 11.8 g/dl (14.0-18.0); Imm Gran Abs Auto 0.01 X10*3/uL (0.00-0.03); Imm Gran Pct Auto 0.2 % (0.0-0.4); Lymphocytes Absolute Auto 1.5 X10*3/uL (1.2-4.9); Lymphocytes Percent Auto 26.7 % (20-40); Mean Corpuscular HGB Conc 31.6 g/dl (31.0-36.0); Mean Corpuscular Hemoglobin 26.5 pg (27.0-33.0); Mean Corpuscular Volume 83.6 fL (80.0-98.0); Mean Platelet Volume 10.5 fL (9.4-12.4); Monocytes Absolute Auto 0.6 X10*3/uL (0.1-1.2); Monocytes Percent Auto 11.6 % (2-11); Neutrophils Percent Auto 53.8 % (45-73); Platelet Count 182 X10*3/uL (160-400); Red Blood Count 4.46 X10*6/uL (4.60-5.80); Red Cell Distribution Width 16.9 % (11.0-16.0); White Blood Count 5.5 X10*3/uL (4.8-10.8)
[2024-11-18 18:41] LABS: Alanine Aminotransferase 10 U/L (0-40); Albumin Level 3.7 g/dL (3.5-5.0); Alkaline Phosphatase 93 U/L (39-117); Anion Gap 14 (12-20); Aspartate Amino Transferase 18 U/L (5-37); Bilirubin Direct < 0.2 mg/dL (0.0-0.5); Bilirubin Total 0.1 mg/dL (0.0-1.0); Blood Urea Nitrogen 28 mg/dL (9-16); Calcium 8.8 mg/dL (8.4-10.2); Carbon Dioxide 27 mmol/L (22-29); Chloride 107 mmol/L (96-108); Creatinine Clr Calc Pharmacy 54.1; Estimated Glomerular Filt Rate > 60; Glucose Random 178 mg/dL (60-115); Magnesium 2.4 mg/dL (1.6-2.6); Potassium 3.9 mmol/L (3.3-5.1); Sodium 144 mmol/L (135-145); Total Protein 7.6 g/dL (6.5-8.0)
[2024-11-18 18:47] LABS: Troponin-I High Sensitivity 3.4 ng/L (<3.5-35.0)
[2024-11-18 21:49] VITALS: BP 181/45; PULSE 68; RESP 20; TEMP 36.6; O2SAT 99
[2024-11-18 22:22] VITALS: BP 181/45; PULSE 68; RESP 20; TEMP 36.6; O2SAT 99
== END 2024-11-18 22:15 | disposition home or self-care (01) ==
PROVIDERS: Physician Assistant Medical; Emergency Provider Emergency Medicine; PCP Internal Medicine
DX: R42 Dizziness and giddiness (principal); S09.90XA Unspecified injury of head, initial encounter; W19.XXXA Unspecified fall, initial encounter; Y93.9 Activity, unspecified; Y92.9 Unspecified place or not applicable; Y99.9 Unspecified external cause status; E11.22 Type 2 diabetes mellitus with diabetic chronic kidney disease; I13.0 Hypertensive heart and chronic kidney disease with heart failure and stage 1 through stage 4 chronic kidney disease, or unspecified chronic kidney disease; N18.9 Chronic kidney disease, unspecified; I50.9 Heart failure, unspecified; Z79.899 Other long term (current) drug therapy; Z79.4 Long term (current) use of insulin
CPT/HCPCS: 36415; 70450; 72125; 80048; 80076; 83735; 84484; 85025; 93005; 99283; 99284

== ENCOUNTER → 2024-11-18 16:49 | Outpatient (BNV) | payer MEDICARE, MEDICAID, SELFPAY | PROVIDERS: PCP Internal Medicine; Visit Provider Specialist | DX: M50.322 Other cervical disc degeneration at C5-C6 level (principal); S09.90XA Unspecified injury of head, initial encounter | CPT/HCPCS: 70450; 72125 ==

== ENCOUNTER → 2024-11-18 16:50 | Outpatient (BNV) | payer MEDICARE, MEDICAID, SELFPAY | PROVIDERS: Emergency Provider Emergency Medicine; PCP Internal Medicine; Visit Provider Internal Medicine Cardiovascular Disease | DX: R42 Dizziness and giddiness (principal); I44.0 Atrioventricular block, first degree | CPT/HCPCS: 93010 ==

== ENCOUNTER 2024-12-17 14:43 | Outpatient (AMB) | payer MEDICARE, MEDICAID, SELFPAY ==
[2024-12-17 14:45] VITALS: BP 162/80; PULSE 78; BMI 33.9
--- NOTE | 2024-12-17 14:45 | A.OFFVIS_ITS ---
Vital Signs 12/17/24 14:45 Height 5 ft 6 in Weight 210 lb BMI 33.9 BP 162/80 H Blood Pressure Location Lt brachial Position Sitting Pulse 78 Pulse Source Pulse Oximeter Intake Visit Reasons: 6m follow up Medical Videographer Required: Yes Medical Videographer Services: Medical Videographer Offered & Declined Accompanied by: Health Care Proxy Allergies codeine [CODEINE] Allergy (Unknown, Verified 11/18/24 16:46) UNKNOWN lisinopril Allergy (Unknown, Uncoded 10/27/24 03:43) choking Medication List - Last Reconciled 12/17/24 by Markos Long MD aspirin (Adult Low Dose Aspirin) 81 mg PO DAILY BD Nicole 2nd Gen Pen Needle (pen needle, diabetic) 5 times a day NS blood sugar diagnostic As directed empagliflozin (Jardiance) 25 mg PO DAILY furosemide 80 mg PO BID insulin aspart U-100 (Novolog FlexPen U-100 Insulin aspart) 12 - 14 units subcut TID insulin glargine (Basaglar KwikPen U-100 Insulin) 24 units subcut BEDTIME isosorbide mononitrate ER 60 mg PO DAILY lancets (FreeStyle Lancets) As directed metoprolol succinate ER 100 mg PO DAILY nitroglycerin 0.4 mg sublingual One tab under the tongue every 5 minutes as needed for chest pain up to 3; pantoprazole 40 mg PO DAILY pen needle, diabetic (BD Ultra-Fine Nicole Pen Needle) As directed five times a day phenytoin sodium extended (Dilantin Extended) 200 mg PO BID pregabalin 300 mg PO BID rosuvastatin 40 mg PO DAILY tamsulosin 0.4 mg PO DAILY 90 days HPI Comments Details: Andres is here for follow-up regarding his cardiac issues including diastolic congestive heart failure and coronary disease. Overall, it seems that he is doing quite well. I have not seen him in the last couple of years and he has been following up with our nurse practitioner. According to family who is with him including the grandson, he is doing fine. No cardiac issues overall. [facility] Medical History Mass of buttock Left buttock abscess Epidermal cyst Obesity due to excess calories CHF (congestive heart failure) Hypokalemia Diabetic nephropathy associated with type 2 diabetes mellitus CHF (congestive heart failure) Epilepsy Type 2 diabetes mellitus with hyperglycemia, with long-term current use of insulin Secondary hyperparathyroidism Diabetic neuropathy associated with type 2 diabetes mellitus CAD (coronary artery disease) (HFpEF) heart failure with preserved ejection fraction Hypertension Coronary stent patent BPH (benign prostatic hyperplasia) Dyslipidemia Neuropathy associated with endocrine disorder CKD (chronic kidney disease) Diabetes mellitus, type 2 Surgical History Stented coronary artery Hx of cardiac cath Family History Father Diabetes CVD (cardiovascular disease) Mother Diabetes CVD (cardiovascular disease) Brother Diabetes Son Thyroid disease Lung disease Psoriasis HTN (hypertension) Social History Household Members: Spouse, Family and Children Housing: Apartment Do you presently have visiting nurse or other home services: No Alcohol intake: never Patient Tobacco Use Status: Former Tobacco user Advance Directives Date on File: 05/18/21 service: No Current occupational status: retired Review of Systems Const Denies weakness ENT Denies dizziness Card Denies chest pain, Denies chest pain with activity, Denies syncope, Denies rapid heart rate, Denies pedal edema, Denies edema, Denies leg edema, Denies lightheadedness, Denies palpitations, Denies dyspnea, Denies dyspnea on exertion and Denies orthopnea Resp Denies cough, Denies dyspnea and Denies dyspnea on exertion GI Denies hematochezia and Denies change in stool character Musc Denies abnormal gait, Denies muscle cramps, Denies muscle weakness, Denies numbness, Denies radiating pain into limb and Denies tingling Neuro Denies abnormal gait, Denies dizziness, Denies syncope, Denies numbness, Denies tingling and Denies weakness Endo Denies palpitations Physical Exam Vital Signs: Last Vital Signs Pulse 78 12/17/24 14:45 BP 162/80 H 12/17/24 14:45 BMI result Body Mass Index 33.9 Const General: comfortable and no acute distress Orientation/consciousness: patient oriented x3 HEENT Other: Unremarkable Head: Yes normal to inspection Neck Neck: Yes normal visual inspection Chest Chest palpation & inspection: normal inspection of the chest Resp Other: Bilateral basal crackles Cardio Palpation: normal PMI Heart sounds: S1 normal heart sound present, S2 normal heart sound present, no gallops, no murmurs and no rubs GI Palpation (GI): Soft to palpation Back/Spine/Pelvis Other: unremarkable Skin General skin exam: no rashes or lesions noted Neuro General: patient oriented x3 Extrem General: Yes normal to inspection Psych Mental Status: mental status grossly normal Assessment & Plan Assessment & Plan (1) Chronic heart failure with preserved ejection fraction (HFpEF): Code(s): I50.32 - Chronic diastolic (congestive) heart failure Category: Medical Plan: Seems stable on diuretics. (2) Atherosclerotic cardiovascular disease: Code(s): I25.10 - Atherosclerotic heart disease of [place] coronary artery without angina pectoris Category: Medical Plan: He has a history of LAD stenting from 2018. He also has disease in the circumflex and right coronary artery. Echocardiogram from 2023 with hyperdynamic LVEF; no significant valvular findings. Ascending aortic size 4 cm. Normal perfusion imaging from 2023. He remains on aspirin, beta-blockers. On statins but LDL is still high at 107 mg/dL. There is a script for Repatha but patient states he did not gated from pharmacy. We will need to check. (3) First degree atrioventricular block: Code(s): I44.0 - Atrioventricular block, first degree Category: Medical Plan: We will need to be followed for any progressive conduction system disease. (4) Essential hypertension: Code(s): I10 - Essential (primary) hypertension Category: Medical Plan: Seems elevated. Add lisinopril. Discussed. He can do basic metabolic panel in about a week or so after starting the medication. (5) Type 2 diabetes mellitus with unspecified complications: Code(s): E11.8 - Type 2 diabetes mellitus with unspecified complications Category: Medical Plan: Last hemoglobin A1c is 8 %. He is on insulin, Jardiance. (6) TIARA (obstructive sleep apnea): Code(s): G47.33 - Obstructive sleep apnea (adult) (pediatric) Category: Medical Plan: Per patient's family, he cannot tolerate CPAP mask and hence does not use this. Orders: Orders Basic Metabolic Panel 2 Weeks I50.32 - Chronic diastolic (congestive) heart failure Medications: New lisinopril 10 mg PO DAILY 30 tabs 5RF Coding Level of Care Code Est Pt Level 4 (12172) Complex EM visit Add On G2211 Diagnoses Chronic heart failure with preserved ejection fraction (HFpEF) I50.32 Atherosclerotic cardiovascular disease I25.10 First degree atrioventricular block I44.0 Essential hypertension I10 Type 2 diabetes mellitus with unspecified complications E11.8 TIARA (obstructive sleep apnea) G47.33
--- OUTSIDE RECORDS SUMMARY | 2024-12-17 15:44 | XMS_ITS | Clinical Summary ---
Author Organization [facility] Address [address] [place] [address] Care Team Providers Care Ship Mate Name Role Phone Unavailable Primary Care Provider Unavailabl e Source Comments PLEASE NOTE, if this patient is a minor, it may be UNLAWFUL to discuss sensitive information that is contained in these records (such as FAMILY PLANNING, MENTAL HEALTH or SUBSTANCE ABUSE) with the minor patient's parent or other person without the patient's specific authorization.[facility] Immunizations Name Administration Dates Next Due Moderna COVID-19 Vaccine, re d cap blue label, 12+ Primary Series 03/10/2021,02/10/2021 Social History Tobacco Use Types Packs/Day Years Used Date Smoking Tobacco: Never Assessed Social Connections Answer Date Recorded Social Connections and Isolation 0 02/10/2021 Financial Resource Strain Answer Date R ecorded Financial Resource Strain 0 2020 Stress Answer Date Recorded Stress 0 02/10/2021 Physical Activity Answer Date Recorded Physical Activity 0 02/10/2021 Food Insecurity Answer Date Recorded Food 0 02/10/2021 Transportation Needs Answer Date Record ed Transportation 0 02/10/2021 Housing Stability Answer Date Recorded Housing 0 02/10/2021 Safety and Environment Answer Date Josué rded Safety 0 02/10/2021 Utilities Answer Date Recorded Utilities 0 02/10/2021 Employment Answer Date Recorded Employment 0 02/10/2021 Sex and Gender Information Value Date Recorded Sex Assigned at Not on file Legal Sex Male 1:07 PM PDT Gender Identity Not on file Sexual Orientation Not on file Plan of Treatment Health Maintenance Due Date Last Done Comments Tobacco Screening 1941 Advanced Care Planning 1940 Hypertension Screening (#1) 1959 Medicare Annual Wellness Visit 1959 Imm-DTaP/Tdap/Td (1 - Tdap) 01/13/1960 Imm-Zoster, Recombinant (1 of 2) 1991 Falls Prevention 2006 [id number] ( season) 2024 021, 02/10/2021 Imm-Influenza (#1) 2024 09/18/2020 Alcohol and Drug Screen 10/30/2024 Depression Annual Screen 10/30/2024 Imm-Pneumococcal 65+ Completed 01/11/2017, 07/12/20 16 Insurance [place]
--- OUTSIDE RECORDS SUMMARY | 2024-12-17 15:44 | XMS_ITS | Clinical Summary ---
Author Organization [facility] Address [address] [place] [address] Phone Care Team Providers Care Pecan Mallow Dipper Name Role Phone Pushpa Ruvalcaba MD Primary Care Provider Allergies Active Allergy Reactions Criticality Noted Date Comments Codeine Other (see comments) 02/25/2021 Lisinopril Other (see comments) 02/25/2021 Medications aspirin (ST MIKALA) 81 MG EC tablet Take 1 tablet by mouth 1 (one) time each day Active clopidogrel (PLAVIX) 75 MG tablet Take 1 tablet by mouth 1 (one) time each day Active furosemide (LASIX) 80 MG tablet Take 1 tablet by mouth 2 (two) times a day Active isosorbide dinitrate (ISORDIL) 30 MG tablet Take 1 tablet by mouth 1 (one) time each day Active metoprolol succinate XL (TOPROL-XL) 100 MG 24 hr tablet Take 1 tablet by mouth 1 (one) time each day Active nitroglycerin (NITROSTAT) 0.4 MG SL tablet Active pantoprazole (PROTONIX) 40 MG EC tablet Take 1 tablet by mouth 1 (one) time each day Active phenytoin (DILANTIN) 100 MG ER capsule Take 400 mg by mouth 2 (two) times a day Active pregabalin (LYRICA) 75 MG capsule 1 Active NovoLOG FLEXPEN 100 UNIT/ML injection PLEASE SEE ATTACHED FOR DETAILED DIRECTIONS 1 Active Basaglar KwikPen 100 UNIT/ML injection INJECT 14 UNITS POR V A SUBCUT MARIA GUADALUPE TOLALO LOS D 1 Active rosuvastatin (CRESTOR) 40 MG tablet Take 40 mg by mouth 1 (one) time each day 1 Active valsartan (DIOVAN) 160 MG tablet TOME SERGO TABLETA TODOS [place] 1 Active cyclobenzaprine (FLEXERIL) 10 MG tablet 1 Active ibuprofen (ADVIL,MOTRIN) 600 MG tablet 2 Active Active Problems Problem Noted Date Diagnosed Date Localized edema 11/23/2023 Chronic kidney disease stage 3 02/18/2021 Essential hypertension 02/18/2021 Proteinuria 02/18/2021 Renal disorder due to type 2 diabetes mellitus 0 02/18/2021 Immunizations Name Administration Dates Next Due Moderna SARS-COV-2 02/10/2021 Family History Medical History Relation Comments Hypertension Child Diabetes Father Heart disease Father CVD Hypertension Father Diabetes Mother Heart disease Mother Cancer Sibling 1 prostate CA Diabetes Sibling 2 Relation Status Comments Child Father Mother Sibling 1 Sibling 2 Social History Tobacco Use Types Packs/Day Years Used Date Smoking Tobacco: Former Smokeless Tobacco: Never Comments:Smoking History Inf o:Every day Sex and Gender Information Value Date Recorded Sex Assigned at Not on file Legal Sex Male 4:51 PM EST Gender Identity Not on file Sexual Orientation Not on file Last Filed Vital Signs Vital Sign Reading Time Taken Comments Blood Pressure 138/66 11/17/2022 2:11 PM EST Pulse 86 11/17/2022 2:11 PM EST Temperature - - Respiratory Rate - - Oxygen Saturation 98% 11/17/2022 2:11 PM EST Inhaled Oxygen Concentration - - Weight 99.9 kg (220 lb 3.2 oz) 11/17/2022 2:11 P M EST Height 167.6 cm (5' 6 ) 08/28/2020 12:00 PM EDT Body Mass Index 35.54 08/28/2020 12:00 PM EDT Plan of Treatment Health Maintenance Due Date Last Done Comments Pneumococcal Vaccine: 65+ Years (1 of 2 - PCV) 1946 Diabetes: Ophthalmology Exam 11/30/2020 Diabetes: Pedal Pulse Checked 11/30/2020 Diabetes: Sensory Foot Exam 11/30/2020 Diabetes: Visual Foot Exam 11/30/2020 Diabetes: Hemoglobin A1C 07/11/2023 023, 09/03/2020 Influenza Vaccine (#1) 2024 Hepatitis B Vaccine Aged Out No longe r eligible based on patient's age to complete this topic Procedures Procedure Name Priority Date/Time Associated Diagnosis Comments EXT RESULT ENTRY Routine 04/10/2023 from Last 3 Months or Most Recently Relevant to Health Maintenance Results * (ABNORMAL) EXT RESULT ENTRY (04/10/2023) Sodium 145 137 - 147 Potassium 4.6 3.4 - 5.5 Chloride 108.0 99.0 - 108.0 Anion Gap 15 <=30 MMOL/L BUN 43(A) 4 - 21 mg/dL Creatinine 1.47(A) 0.60 - 1.30 mg/dL Calcium 9.4 8.7 - 10.7 mg/dL Hemoglobin A1C 8.9(A) 4.0 - 6.0 04/10/2023 Historical Provider LAB BLOOD ORDERABLES Telma l Result from Last 3 Months or Most Recently Relevant to Health Maintenance Insurance [place] Care Teams Pecan Mallow Dipper Relationship Specialty Start Date End Date Pushpa Ruvalcaba MD [facility] PCP - General 11/09/20
== END 2024-12-17 15:14 | disposition home or self-care (01) ==
PROVIDERS: PCP Internal Medicine; Visit Provider Internal Medicine
DX: I50.32 Chronic diastolic (congestive) heart failure (principal); I25.10 Atherosclerotic heart disease of native coronary artery without angina pectoris; I44.0 Atrioventricular block, first degree; I10 Essential (primary) hypertension; E11.8 Type 2 diabetes mellitus with unspecified complications; G47.33 Obstructive sleep apnea (adult) (pediatric)
CPT/HCPCS: 99214; G2211

== ENCOUNTER 2024-12-17 15:19 | Outpatient (REF) | payer MEDICARE, MEDICAID, SELFPAY ==
--- OUTSIDE RECORDS SUMMARY | 2024-12-17 16:13 | XMS_ITS | Clinical Summary ---
Author Organization [facility] Address [address] [place] [address] Care Team Providers Care Computer Programmer Analyst Name Role Phone Unavailable Primary Care Provider [...] (1 of 2) 1990 Falls Prevention 2006 [id number] ( season) 2024 021, 02/10/2021 Imm-Influenza (#1) 2024 09/18/2020 Alcohol and Drug Screen 10/30/2024 Depression Annual Screen 10/30/2024 Imm-Pneumococcal 65+ Completed 01/11/2017, 07/12/20 16 Insurance [place] MEDICA[place] MEDICARE - [place]
--- OUTSIDE RECORDS SUMMARY | 2024-12-17 16:13 | XMS_ITS | Clinical Summary ---
Author Organization [facility] Address [address] [place] [address] Phone Care Team Providers Care Clinical Business Analyst Name Role Phone Pushpa Ruvalcaba MD Primary [...] [place] Care Teams Clinical Business Analyst Relationship Specialty Start Date End Date Pushpa Ruvalcaba MD [facility] PCP - General 11/09/20
[2024-12-17 16:30] LABS: Anion Gap 13 (12-20); Blood Urea Nitrogen 28 mg/dL (9-16); Calcium 9.1 mg/dL (8.4-10.2); Carbon Dioxide 29 mmol/L (22-29); Chloride 106 mmol/L (96-108); Estimated Glomerular Filt Rate 51; Glucose Random 307 mg/dL (60-115); Potassium 4.5 mmol/L (3.3-5.1); Sodium 143 mmol/L (135-145)
== END 2024-12-17 15:20 | disposition home or self-care (01) ==
LOC: HO.LAB 15:19
PROVIDERS: Nurse Practitioner Family; PCP Internal Medicine; Visit Provider Internal Medicine Hypertension Specialist
DX: N18.30 Chronic kidney disease, stage 3 unspecified (principal); I50.32 Chronic diastolic (congestive) heart failure; I25.10 Atherosclerotic heart disease of native coronary artery without angina pectoris; I44.0 Atrioventricular block, first degree; I10 Essential (primary) hypertension; E11.8 Type 2 diabetes mellitus with unspecified complications
CPT/HCPCS: 36415; 80048; 99212

== ENCOUNTER 2024-12-23 16:06 | Outpatient (AMB) | payer MEDICARE, MEDICAID, SELFPAY ==
[2024-12-23 16:17] VITALS: BP 110/82; PULSE 63; O2SAT 98; BMI 33.1
--- NOTE | 2024-12-23 16:17 | HO.NEPHOV_ITS ---
Vital Signs 12/23/24 16:17 Height 5 ft 6 in Weight 205 lb BMI 33.1 BP 110/82 Blood Pressure Location Lt brachial Position Sitting Pulse 63 Pulse Source Pulse Oximeter Pulse Oximetry (%) 98 Oxygen Delivery Method Room Air Intake Visit Reasons: FU Energy Conservation Director Required: No Accompanied by: Son Allergies codeine [CODEINE] Allergy (Unknown, Verified 12/23/24 16:20) UNKNOWN lisinopril Allergy (Unknown, Uncoded 10/27/24 03:43) choking Medication List - Last Reconciled 12/23/24 by Zan Campbell MD aspirin (Adult Low Dose Aspirin) 81 mg PO DAILY BD Nicole 2nd Gen Pen Needle (pen needle, diabetic) 5 times a day NS blood sugar diagnostic As directed cholecalciferol (vitamin D3) (Vitamin D3) 25 mcg PO DAILY empagliflozin (Jardiance) 25 mg PO DAILY ezetimibe 10 mg PO DAILY furosemide 80 mg PO BID insulin aspart (niacinamide) 100 unit/mL (3 mL) (Fiasp FlexTouch U-100 Insulin) subcut isosorbide mononitrate ER 60 mg PO DAILY lancets (FreeStyle Lancets) As directed metoprolol succinate ER 100 mg PO DAILY nitroglycerin 0.4 mg sublingual One tab under the tongue every 5 minutes as needed for chest pain up to 3; pen needle, diabetic (BD Ultra-Fine Nicole Pen Needle) As directed five times a day phenytoin sodium extended (Dilantin Extended) 200 mg PO BID pregabalin 300 mg PO BID rosuvastatin 40 mg PO DAILY tamsulosin 0.4 mg PO DAILY 90 days HPI Comments Details: Elderly man with a h/o CKD in a setting of CHF and CAD and DM Accompanied by family c/o Edema No dyspnea On high dose of Lasix Doing better today Lost 5- 6 lbs 07/11/24 ;c/o GIRALDO ;Gained 6 lbs 08/01/24 ;Dyspnea improved with Metolazone ;Still with edema 09/09/24 ;Feels better ;Lost 10 lbs since last visit ;Accompanied by son ;Mom administers meds 12/23/24 Overall doing OK. No new issues [facility] Medical History Mass of buttock Left buttock abscess Epidermal cyst Obesity due to excess calories CHF (congestive heart failure) Hypokalemia Diabetic nephropathy associated with type 2 diabetes mellitus CHF (congestive heart failure) Epilepsy Type 2 diabetes mellitus with hyperglycemia, with long-term current use of insulin Secondary hyperparathyroidism Diabetic neuropathy associated with type 2 diabetes mellitus CAD (coronary artery disease) (HFpEF) heart failure with preserved ejection fraction Hypertension Coronary stent patent BPH (benign prostatic hyperplasia) Dyslipidemia Neuropathy associated with endocrine disorder CKD (chronic kidney disease) Diabetes mellitus, type 2 Surgical History Stented coronary artery Hx of cardiac cath Family History Father Diabetes CVD (cardiovascular disease) Mother Diabetes CVD (cardiovascular disease) Brother Diabetes Son Thyroid disease Lung disease Psoriasis HTN (hypertension) Social History Household Members: Spouse, Family and Children Housing: Apartment Do you presently have visiting nurse or other home services: No Alcohol intake: never Patient Tobacco Use Status: Former Tobacco user Advance Directives Date on File: 05/18/21 service: No Current occupational status: retired Physical Exam Vital Signs: Last Vital Signs Pulse 63 12/23/24 16:17 BP 110/82 12/23/24 16:17 Pulse Ox 98 12/23/24 16:17 Oxygen Delivery Method Room Air 12/23/24 16:17 BMI result Body Mass Index 33.1 Awake. Comfortable. Neck is supple. Mucosa moist. Lungs bilateral scattered rales Heart S1-S2 heard no gallop. Abdomen soft. Extremities trace to 1 + edema. No involuntary movements. No myoclonus. Results Reviewed Nephrology Results: 2 Hgb 11.8 g/dl (14.0-18.0) L 11/18/24 WBC 5.5 X10*3/uL (4.8-10.8) 11/18/24 Plt Count 182 X10*3/uL (160-400) 11/18/24 Sodium 143 mmol/L (135-145) 12/17/24 Potassium 4.5 mmol/L (3.3-5.1) 12/17/24 Chloride 106 mmol/L (96-108) 12/17/24 Carbon Dioxide 29 mmol/L (22-29) 12/17/24 BUN 28 mg/dL (9-16) H 12/17/24 Creatinine 1.33 mg/dL (0.5-1.4) 12/17/24 Calcium 9.1 mg/dL (8.4-10.2) 12/17/24 Assessment & Plan Assessment & Plan (1) Chronic heart failure with preserved ejection fraction (HFpEF): Code(s): I50.32 - Chronic diastolic (congestive) heart failure Category: Medical (2) CKD (chronic kidney disease): Code(s): N18.9 - Chronic kidney disease, unspecified Category: Medical Qualifiers: Chronic kidney disease stage: stage 3 (moderate) Chronic kidney disease stage 3 subtype: stage 3a (GFR 45-59) Qualified Code(s): N18.31 - Chronic kidney disease, stage 3a (3) (HFpEF) heart failure with preserved ejection fraction: Code(s): I50.30 - Unspecified diastolic (congestive) heart failure Category: Medical Qualifiers: Heart failure chronicity: unspecified Qualified Code(s): I50.30 - Unspecified diastolic (congestive) heart failure Plan CKD in a setting of longstanding DM and CHF Volume status : Euvolemic now Needs to stay on low salt diet. Discussed with family Keep Lasix 80 mg BID Keep Zaroxylin 2.5 mg ONCE a week Maintain BP < 130/80 DM- Blood sugar is sub optimal Discussed importance of tight control Maintain A1C < 7% Would benefit from SGLT-2 inhibitor - continue with Jardiance Watch K while of Spironolactone Keep Vit D to correct deficiency Mild Anemia Stable. No indication for Epogen Medications: Discontinued evolocumab (Repatha Cassandraick) Discontinued Reason: Doctor's Order 140 mg subcut Q2W 6 mL 3RF Coding Level of Care Code Est Pt Level 4 (86784) Diagnoses Chronic heart failure with preserved ejection fraction (HFpEF) I50.32 Stage 3a chronic kidney disease N18.31 Chronic kidney disease stage: stage 3 (moderate) Chronic kidney disease stage 3 subtype: stage 3a (GFR 45-59) Heart failure with preserved ejection fraction, unspecified HF chronicity I50.30 Heart failure chronicity: unspecified
--- OUTSIDE RECORDS SUMMARY | 2024-12-23 18:14 | XMS_ITS | Clinical Summary ---
Author Organization [facility] Address [address] [place] [address] Phone Care Team Providers Care Carton Forming Machine Operator Name Role Phone Pushpa Ruvalcaba MD Primary [...] [place] Care Teams Carton Forming Machine Operator Relationship Specialty Start Date End Date Pushpa Ruvalcaba MD [facility] PCP - General 11/09/20
--- OUTSIDE RECORDS SUMMARY | 2024-12-23 18:14 | XMS_ITS | Clinical Summary ---
Author Organization [facility] Address [address] [place] [address] Care Team Providers Care Engineer System Administrator Name Role Phone Unavailable Primary Care Provider [...] (1 of 2) 1991 Falls Prevention 2006 [id number] ( season) 2024 021, 02/10/2021 Imm-Influenza (#1) 2024 09/18/2020 Alcohol and Drug Screen 10/30/2024 Depression Annual Screen 10/30/2024 Imm-Pneumococcal 65+ Completed 01/11/2017, 07/12/20 16 Insurance [place] MEDICA[place]ARE - [place]
== END 2024-12-23 16:35 | disposition home or self-care (01) ==
PROVIDERS: PCP Internal Medicine; Visit Provider Internal Medicine Hypertension Specialist
DX: I50.32 Chronic diastolic (congestive) heart failure (principal); N18.31 Chronic kidney disease, stage 3a; I50.30 Unspecified diastolic (congestive) heart failure
CPT/HCPCS: 99214

== ENCOUNTER → 2024-12-23 16:06 | Outpatient (BNVA) | payer MEDICARE, MEDICAID, SELFPAY | PROVIDERS: PCP Internal Medicine; Visit Provider Internal Medicine Hypertension Specialist | DX: E11.22 Type 2 diabetes mellitus with diabetic chronic kidney disease (principal); I13.0 Hypertensive heart and chronic kidney disease with heart failure and stage 1 through stage 4 chronic kidney disease, or unspecified chronic kidney disease; I50.32 Chronic diastolic (congestive) heart failure; N18.31 Chronic kidney disease, stage 3a; Z79.84 Long term (current) use of oral hypoglycemic drugs | CPT/HCPCS: 99212 ==

== ENCOUNTER 2025-01-17 09:01 | Outpatient (REF) | payer MEDICARE, MEDICAID, SELFPAY ==
[2025-01-17 09:36] LABS: Estimated Average Glucose 189 mg/dL; Hemoglobin A1c % 8.2 % (<6.0)
[2025-01-17 10:19] LABS: Alanine Aminotransferase 14 U/L (0-40); Albumin Level 3.7 g/dL (3.5-5.0); Alkaline Phosphatase 98 U/L (39-117); Anion Gap 10 (12-20); Aspartate Amino Transferase 17 U/L (5-37); Bilirubin Total 0.3 mg/dL (0.0-1.0); Blood Urea Nitrogen 25 mg/dL (9-16); Calcium 9.2 mg/dL (8.4-10.2); Carbon Dioxide 26 mmol/L (22-29); Chloride 109 mmol/L (96-108); Estimated Glomerular Filt Rate 59; Glucose Random 130 mg/dL (60-115); Potassium 3.9 mmol/L (3.3-5.1); Sodium 141 mmol/L (135-145); Total Protein 8.1 g/dL (6.5-8.0)
== END 2025-01-17 09:02 | disposition home or self-care (01) ==
LOC: HO.LAB 09:01
PROVIDERS: PCP Internal Medicine; Visit Provider Internal Medicine
DX: E11.40 Type 2 diabetes mellitus with diabetic neuropathy, unspecified (principal); E11.621 Type 2 diabetes mellitus with foot ulcer; I12.9 Hypertensive chronic kidney disease with stage 1 through stage 4 chronic kidney disease, or unspecified chronic kidney disease; I50.33 Acute on chronic diastolic (congestive) heart failure; L03.031 Cellulitis of right toe
CPT/HCPCS: 36415; 80053; 83036

== ENCOUNTER 2025-02-01 09:53 | Outpatient (REF) | payer OTHER, SELFPAY ==
--- OUTSIDE RECORDS SUMMARY | 2025-02-01 09:56 | XMS_ITS | Clinical Summary ---
Author Organization [facility] Address [address] [place] [address] Phone Care Team Providers Care Guard Entrance Registrar Name Role Phone Pushpa Ruvalcaba MD Primary [...] [place] Care Teams Guard Entrance Registrar Relationship Specialty Start Date End Date Pushpa Ruvalcaba MD [facility] PCP - General 11/09/20
--- OUTSIDE RECORDS SUMMARY | 2025-02-01 09:56 | XMS_ITS | Clinical Summary ---
Author Organization [facility] Address [address] [place] [address] Care Team Providers Care Local Hazmat Driver Name Role Phone Unavailable Primary Care Provider Unavailabl e Source Comments PLEASE NOTE, if this patient is a minor, it may be UNLAWFUL to discuss sensitive information that is contained in these records (such as FAMILY PLANNING, MENTAL HEALTH or SUBSTANCE ABUSE) with the minor patient's parent or other person without the patient's specific authorization.[facility] Immunizations Immunization Administration Dates Next Due Moderna COVID-19 Vaccine, [...] (1 of 2) 1990 Falls Prevention 2006 [id number] ( season) 2024 021, 02/10/2021 Imm-Influenza (#1) 2024 09/18/2020 Alcohol and Drug Screen 10/30/2024 Depression Annual Screen 10/30/2024 Imm-Pneumococcal 65+ Completed 01/11/2017, 07/12/20 16 Insurance [place] MEDICA[place]ARE - [place]
[2025-02-01 10:08] LABS: MANUAL DIFF FLAG NO
[2025-02-01 11:14] LABS: Basophils Absolute Auto 0.1 X10*3/uL (0.0-0.2); Basophils Percent Auto 1.3 % (0-2); Eosinophils Absolute Auto 0.2 X10*3/uL (0.0-0.4); Eosinophils Percent Auto 3.5 % (0-4); Hematocrit 35.1 % (42.0-52.0); Imm Gran Abs Auto 0.01 X10*3/uL (0.00-0.03); Imm Gran Pct Auto 0.2 % (0.0-0.4); Lymphocytes Absolute Auto 1.1 X10*3/uL (1.2-4.9); Lymphocytes Percent Auto 21.8 % (20-40); Mean Corpuscular HGB Conc 31.3 g/dl (31.0-36.0); Mean Corpuscular Hemoglobin 26.3 pg (27.0-33.0); Mean Platelet Volume 10.7 fL (9.4-12.4); Monocytes Absolute Auto 0.5 X10*3/uL (0.1-1.2); Monocytes Percent Auto 9.4 % (2-11); Neutrophils Absolute Auto 3.3 x10*3/uL (2.0-8.3); Neutrophils Percent Auto 63.8 % (45-73); Platelet Count 225 X10*3/uL (160-400); Red Blood Count 4.18 X10*6/uL (4.60-5.80); Red Cell Distribution Width 17.1 % (11.0-16.0); White Blood Count 5.2 X10*3/uL (4.8-10.8)
[2025-02-01 11:26] LABS: Estimated Average Glucose 194 mg/dL; Hemoglobin A1C 206.7662 umol/L; Hemoglobin A1c % 8.4 % (<6.0); Total Hemoglobin (HGBA1C) 3018.8987 umol/L
[2025-02-01 11:59] LABS: Alanine Aminotransferase 7 U/L (0-40); Albumin Level 3.6 g/dL (3.5-5.0); Alkaline Phosphatase 106 U/L (39-117); Anion Gap 10 (12-20); Aspartate Amino Transferase 21 U/L (5-37); Bilirubin Total 0.3 mg/dL (0.0-1.0); Blood Urea Nitrogen 28 mg/dL (9-16); Calcium 9.1 mg/dL (8.4-10.2); Carbon Dioxide 27 mmol/L (22-29); Chloride 110 mmol/L (96-108); Cholesterol 130 mg/dL (<200); Estimated Glomerular Filt Rate > 60; Glucose Random 151 mg/dL (60-115); HDL Cholesterol 54 mg/dL (>40); LDL Cholesterol Calculated 63 mg/dL (<100); Potassium 4.1 mmol/L (3.3-5.1); Sodium 143 mmol/L (135-145); Total Protein 7.3 g/dL (6.5-8.0); Triglycerides 69 mg/dL (<150)
== END 2025-02-01 09:54 | disposition home or self-care (01) ==
LOC: HO.LAB 09:53
PROVIDERS: PCP Internal Medicine; Visit Provider Internal Medicine
DX: E11.65 Type 2 diabetes mellitus with hyperglycemia (principal); E78.00 Pure hypercholesterolemia, unspecified; I12.9 Hypertensive chronic kidney disease with stage 1 through stage 4 chronic kidney disease, or unspecified chronic kidney disease; I50.41 Acute combined systolic (congestive) and diastolic (congestive) heart failure
CPT/HCPCS: 36415; 80053; 80061; 83036; 85025

== ENCOUNTER 2025-02-05 15:54 | Outpatient (AMB) | payer OTHER, MEDICAID, SELFPAY ==
--- NOTE | 2025-02-05 16:00 | A.OFFVIS_ITS ---
Intake Visit Reasons: 6M PVR Intake Note: Patient is present for 6M/PVR Urology Medication:TAMSULOSIN Antibiotic Allergy:NONE Blood Thinner:ASPIRIN Last PVR:190ML'S Todays PVR:214ML'S Private Branch Exchange Operator Required: No Allergies codeine [CODEINE] Allergy (Unknown, Verified 02/05/25 16:02) UNKNOWN lisinopril Allergy (Unknown, Uncoded 02/05/25 16:02) choking HPI Comments Details: Andres is a pleasant Vietnamese-speaking male. He is a patient of . he seen for the following urologic conditions - lower urinary tract symptoms Six-month follow-up PVR running around 200 cc Follow-up for urinary urgency in setting of diabetes - HbA1c 8.9% On Lasix 80 mg b.i.d. Discussed elevation of feet after 04:00 o'clock in order to improve circulatory return On Jardiance with 3+ glucose Accompanied by his son who was translating Does have urgency and recommended to decrease fluid intake after 19:00 Reduced total fluids to 1500 cc daily Lower urinary tract symptoms Longstanding Prior [employer] laser prostate 2021 Concomitant conditions include type 2 diabetes - insulin-dependent On diuretics Nocturia x3-4 PFSH Medical History Mass of buttock Left buttock abscess Epidermal cyst Obesity due to excess calories CHF (congestive heart failure) Hypokalemia Diabetic nephropathy associated with type 2 diabetes mellitus CHF (congestive heart failure) Epilepsy Type 2 diabetes mellitus with hyperglycemia, with long-term current use of i nsulin Secondary hyperparathyroidism Diabetic neuropathy associated with type 2 diabetes mellitus CAD (coronary artery disease) (HFpEF) heart failure with preserved ejection fraction Hypertension Coronary stent patent BPH (benign prostatic hyperplasia) Dyslipidemia Neuropathy associated with endocrine disorder CKD (chronic kidney disease) Diabetes mellitus, type 2 Surgical History Stented coronary artery Hx of cardiac cath Family History Father Diabetes CVD (cardiovascular disease) Mother Diabetes CVD (cardiovascular disease) Brother Diabetes Son Thyroid disease Lung disease Psoriasis HTN (hypertension) Social History Household Members: Spouse, Family and Children Housing: Apartment Do you presently have visiting nurse or other home services: No Alcohol intake: never Patient Tobacco Use Status: Former Tobacco user Advance Directives Date on File: 05/18/21 service: No Current occupational status: retired Review of Systems Const Denies chills and Denies fever(s) Card Reports no additional complaints and Denies syncope Resp Denies cough GI Denies abdominal pain and Denies heartburn Reports as per HPI and Denies change in libido Neuro Denies syncope Psych Denies change in libido Endo Denies change in libido Physical Exam Const General: cooperative, healthy appearing, comfortable and no acute distress Orientation/consciousness: patient oriented x3 HEENT Face and sinus: Yes normal facial exam Mouth: moist mucous membranes Neck Neck: Yes normal visual inspection, Yes full ROM and Yes trachea midline Chest Chest palpation & inspection: normal inspection of the chest Resp Effort & Inspection: normal respiratory effort, able to speak in complete sentences and no respiratory distress GI Inspection: Yes normal to inspection Back/Spine/Pelvis Cervical Spine: normal cervical lordosis Thoracic/Lumbar Spine: thoracic and lumbar spine normal to inspection Skin General skin exam: no rashes or lesions noted Neuro General: patient oriented x3, gait normal, tone normal and moves all extremities Extrem General: Yes normal to inspection and Yes capillary refill normal Office Procedures Post Void Residual Post Residual Void Post Void Residual (PVR): 214 [id number] Void Residual by ultrasound Results AMB Urinalysis, Automated UA Leukoctes 0 Geeta/uL Last Edit by ANGELINA Sharp on 02/05/25 16:24 UA Nitrite Negative Last Edit by ANGELINA Sharp on 02/05/25 16:24 UA Urobilinogen 0.2 mg/dL Last Edit by ANGELINA Sharp on 02/05/25 16:2 4 UA Protein 0 mg/dL Last Edit by ANGELINA Sharp on 02/05/25 16:24 UA pH 6.0 Last Edit by ANGELINA Sharp on 02/05/25 16:24 UA Blood 0 Spencer/uL Last Edit by ANGELINA Sharp on 02/05/25 16:24 UA Specific [place] 1.005 Last Edit by ANGELINA Sharp on 02/05/25 16: 24 UA Ketone Negative Last Edit by ANGELINA Sharp on 02/05/25 16:24 UA Bilirubin 0 mg/dL Last Edit by ANGELINA Sharp on 02/05/25 16:24 UA Glucose 1000 mg/dL Last Edit by ANGELINA Sharp on 02/05/25 16:24 Assessment & Plan Assessment & Plan (1) BPH (benign prostatic hyperplasia): Code(s): N40.0 - Benign prostatic hyperplasia without lower urinary tract symptoms Category: Medical (2) Urinary urgency: Code(s): R39.15 - Urgency of urination Category: Medical Plan Six-month follow-up PVR Orders: Orders AMB Urinalysis Automated Today Z13.9 - Encounter for screening, unspecified Patient Instructions: This note is constructed using voice recognition software. While every effort has been made to ensure accuracy heavy equipment operating engineer errors may have been included. Imaging studies, laboratory and physical exam results were discussed and reviewed in detail. No major barriers to patient understanding were identified. An opportunity to ask questions regarding the treatment plan was provided. All questions were answered. The patient expressed understanding and agreement with the above treatment plan. The patient is aware they should contact our office by phone for worsening of their current condition or the appearance of new urologic symptoms. Compliance is encouraged with any medications and followup testing that is ordered. It is a privilege to participate in the urologic care of your patient. If you have any questions or concerns regarding treatment for the above conditions, or other urologic issues, please do not hesitate to contact me. The office telephone contact is [phone]. Sincerely, Dr Brett Ruvalcaba MD, [facility] - Urology Compassionate Specialist Care for the Genitourinary System Coding Level of Care Code Est Pt Level 3 (23903) Complex EM visit Add On G2211 Diagnoses BPH (benign prostatic hyperplasia) N40.0 Urinary urgency R39.15 CPT Codes Post Residual Void - PVR CPT Code: [id number]-[id number] Void Residual by ultrasound ([id number])
--- OUTSIDE RECORDS SUMMARY | 2025-02-05 17:39 | XMS_ITS | Clinical Summary ---
Author Organization [facility] Address [address] [place] [address] Care Team Providers Care Chemical Operator Name Role Phone Unavailable Primary Care Provider [...] (1 of 2) 1991 Falls Prevention 2006 [id number] ( season) 2024 021, 02/10/2021 Imm-Influenza (#1) 2024 09/18/2020 Alcohol and Drug Screen 10/30/2024 Depression Annual Screen 10/30/2024 Imm-Pneumococcal 65+ Completed 01/11/2017, 07/12/20 16 Insurance [place] MEDICA[place] - [place]
--- OUTSIDE RECORDS SUMMARY | 2025-02-05 17:39 | XMS_ITS | Clinical Summary ---
Author Organization [facility] Address [address] [place] [address] Phone Care Team Providers Care Cuff Cutter Name Role Phone Pushpa Ruvalcaba MD Primary [...] (DIOVAN) 160 MG tablet TOME SERGO TABLETA TOS [place] 1 Active cyclobenzaprine (FLEXERIL) 10 [...] Hemoglobin A1C 07/11/2023 023, 09/03/2020 Influenza Vaccine (Season Ended) 2025 Hepatitis B Vaccine Aged Out No longe [...] [place] Care Teams Cuff Cutter Relationship Specialty Start Date End Date Pushpa Ruvalcaba MD [facility] PCP - General 11/09/20
== END 2025-02-05 16:31 | disposition home or self-care (01) ==
LOC: HO.HUSH 15:54
PROVIDERS: PCP Internal Medicine; Visit Provider Urology
DX: N40.0 Benign prostatic hyperplasia without lower urinary tract symptoms (principal); R39.15 Urgency of urination; Z13.9 Encounter for screening, unspecified
CPT/HCPCS: 99213; G2211

== ENCOUNTER → 2025-02-05 15:54 | Outpatient (BNVA) | payer OTHER, SELFPAY | PROVIDERS: PCP Internal Medicine; Visit Provider Urology | DX: N40.0 Benign prostatic hyperplasia without lower urinary tract symptoms (principal); R39.15 Urgency of urination | CPT/HCPCS: 51798; 81003; 99212 ==

== ENCOUNTER 2025-04-03 15:35 | Outpatient (AMB) | payer MEDICARE, MEDICAID, SELFPAY ==
[2025-04-03 15:36] VITALS: BP 118/60; PULSE 70; O2SAT 97; BMI 32.8
--- NOTE | 2025-04-03 15:36 | HO.NEPHOV ---
Vital Signs 04/03/25 15:36 Height 5 ft 6 in Weight 203 lb BMI 32.8 BP 118/60 Blood Pressure Location Rt brachial Position Sitting Pulse 70 Pulse Source Pulse Oximeter Pulse Oximetry (%) 97 Oxygen Delivery Method Room Air Intake Visit Reasons: FU Intake Note: Patient has not done labs. Communication And Outreach Manager Required: No Accompanied by: Son Allergies codeine [CODEINE] Allergy (Unknown, Verified 04/03/25 15:39) UNKNOWN lisinopril Allergy (Unknown, Uncoded 02/05/25 16:02) choking Medication List - Last Reconciled 04/03/25 by Zan Campbell MD aspirin (Adult Low Dose Aspirin) 81 mg PO DAILY BD Nicole 2nd Gen Pen Needle (pen needle, diabetic) 5 times a day NS blood sugar diagnostic As directed cholecalciferol (vitamin D3) (Vitamin D3) 25 mcg PO DAILY empagliflozin (Jardiance) 25 mg PO DAILY evolocumab (Repatha SureClick) 140 mg subcut Q2W ezetimibe 10 mg PO DAILY furosemide 80 mg PO BID insulin aspart (niacinamide) 100 unit/mL (3 mL) (Fiasp FlexTouch U-100 Insulin) subcut isosorbide mononitrate ER 60 mg PO DAILY lancets (FreeStyle Lancets) As directed metoprolol succinate ER 100 mg PO DAILY nitroglycerin 0.4 mg sublingual One tab under the tongue every 5 minutes as needed for chest pain up to 3; pen needle, diabetic (BD Ultra-Fine Nicole Pen Needle) As directed five times a day phenytoin sodium extended (Dilantin Extended) 200 mg PO BID pregabalin 300 mg PO BID rosuvastatin 40 mg PO DAILY tamsulosin 0.4 mg PO DAILY 90 days Do you need a note to return to daycare/school/sports/work: No HPI Comments Details: Elderly man with a h/o CKD in a setting of CHF and CAD and DM Accompanied by family c/o Edema No dyspnea On high dose of Lasix Doing better today Lost 5- 6 lbs 07/11/24 ;c/o GIRALDO ;Gained 6 lbs 08/01/24 ;Dyspnea improved with Metolazone ;Still with edema 09/09/24 ;Feels better ;Lost 10 lbs since last visit ;Accompanied by son ;Mom administers meds 12/23/24 Overall doing OK. No new issues 04/03 85-year-old male presenting with chronic kidney disease. This diagnosis has been under observation since November, with recent laboratory results from January indicating stable kidney function. The patient denies issues with urination or breathing difficulties, suggesting that kidney performance remains stable. Blood pressure is well-controlled at 118/60 mmHg, and diabetes management continues under current medications without recent adjustments. Dietary habits have been modified to reduce salt intake, with occasional deviations. The continued emphasis on maintaining stable blood glucose and blood pressure levels highlights the focus on controlling comorbid systemic conditions to support renal function. [facility] Medical History Mass of buttock Left buttock abscess Epidermal cyst Obesity due to excess calories CHF (congestive heart failure) Hypokalemia Diabetic nephropathy associated with type 2 diabetes mellitus CHF (congestive heart failure) Epilepsy Type 2 diabetes mellitus with hyperglycemia, with long-term current use of insulin Secondary hyperparathyroidism Diabetic neuropathy associated with type 2 diabetes mellitus CAD (coronary artery disease) (HFpEF) heart failure with preserved ejection fraction Hypertension Coronary stent patent BPH (benign prostatic hyperplasia) Dyslipidemia Neuropathy associated with endocrine disorder CKD (chronic kidney disease) Diabetes mellitus, type 2 Surgical History Stented coronary artery Hx of cardiac cath Family History Father Diabetes CVD (cardiovascular disease) Mother Diabetes CVD (cardiovascular disease) Brother Diabetes Son Thyroid disease Lung disease Psoriasis HTN (hypertension) Social History Household Members: Spouse, Family and Children Housing: Apartment Do you presently have visiting nurse or other home services: No Alcohol intake: never Patient Tobacco Use Status: Former Tobacco user Advance Directives Date on File: 05/18/21 service: No Current occupational status: retired Physical Exam Vital Signs: Last Vital Signs Pulse 70 04/03/25 15:36 BP 118/60 04/03/25 15:36 Pulse Ox 97 04/03/25 15:36 Oxygen Delivery Method Room Air 04/03/25 15:36 BMI result Body Mass Index 32.8 Awake. Comfortable. Neck is supple. Mucosa moist. Lungs bilateral scattered rales Heart S1-S2 heard no gallop. Abdomen soft. Extremities trace to 1 + edema. No involuntary movements. No myoclonus. Results Reviewed Nephrology Results: Hgb 11.0 g/dl (14.0-18.0) L 02/01/25 WBC 5.2 X10*3/uL (4.8-10.8) 02/01/25 Plt Count 225 X10*3/uL (160-400) 02/01/25 Sodium 143 mmol/L (135-145) 02/01/25 Potassium 4.1 mmol/L (3.3-5.1) 02/01/25 Chloride 110 mmol/L (96-108) H 02/01/25 Carbon Dioxide 27 mmol/L (22-29) 02/01/25 BUN 28 mg/dL (9-16) H 02/01/25 Creatinine 1.06 mg/dL (0.5-1.4) 02/01/25 Calcium 9.1 mg/dL (8.4-10.2) 02/01/25 Assessment & Plan Assessment & Plan (1) Chronic heart failure with preserved ejection fraction (HFpEF): Code(s): I50.32 - Chronic diastolic (congestive) heart failure Category: Medical (2) CKD (chronic kidney disease): Code(s): N18.9 - Chronic kidney disease, unspecified Category: Medical Qualifiers: Chronic kidney disease stage: stage 3 (moderate) Chronic kidney disease stage 3 subtype: stage 3a (GFR 45-59) Qualified Code(s): N18.31 - Chronic kidney disease, stage 3a (3) (HFpEF) heart failure with preserved ejection fraction: Code(s): I50.30 - Unspecified diastolic (congestive) heart failure Category: Medical Qualifiers: Heart failure chronicity: unspecified Qualified Code(s): I50.30 - Unspecified diastolic (congestive) heart failure Plan CKD in a setting of longstanding DM and CHF Volume status : Euvolemic now Needs to stay on low salt diet. Discussed with family Keep Lasix 80 mg BID Keep Zaroxylin 2.5 mg ONCE a week Maintain BP < 130/80 DM- Blood sugar is sub optimal Discussed importance of tight control Maintain A1C < 7% Would benefit from SGLT-2 inhibitor - continue with Jardiance Watch K while of Spironolactone Keep Vit D to correct deficiency Mild Anemia Stable. No indication for Epogen Orders: Orders Basic Metabolic Panel 4 Months I50.32 - Chronic diastolic (congestive) heart failure Complete Blood Count no Diff 4 Months I50.32 - Chronic diastolic (congestive) heart failure Coding Level of Care Code Est Pt Level 4 (18087) Diagnoses Chronic heart failure with preserved ejection fraction (HFpEF) I50.32 Stage 3a chronic kidney disease N18.31 Chronic kidney disease stage: stage 3 (moderate) Chronic kidney disease stage 3 subtype: stage 3a (GFR 45-59) Heart failure with preserved ejection fraction, unspecified HF chronicity I50.30 Heart failure chronicity: unspecified
--- OUTSIDE RECORDS SUMMARY | 2025-04-03 18:02 | XMS_ITS | Clinical Summary ---
Author Organization [facility] Address [address] [place] [address] Care Team Providers Care Spindraw Operator Name Role Phone Unavailable Primary Care [...] (1 of 2) 1991 Falls Prevention 2006 [id number] ( season) 2024 021, 02/10/2021 Alcohol and Drug Screen 10/30/2024 Depression Annual Screen 10/30/2024 Imm-Influenza (Season Ended) 2025 09/18/2020 Imm-Pneumococcal 65+ Completed 01/11/2017, 07/12/20 16 Insurance [place] MEDICAID Member Subscriber Plan / Payer (Ef fective 2021-Present) Name:Andres Weinstein Relation to Subscriber:Self Name:Andres Weinstein Payer ID:[id number] Type:Medicaid Address: [address] [id number] MEDICARE - [place]
== END 2025-04-03 15:50 | disposition home or self-care (01) ==
LOC: HO.HKA 15:35
PROVIDERS: PCP Internal Medicine; Visit Provider Internal Medicine Hypertension Specialist
DX: I50.32 Chronic diastolic (congestive) heart failure (principal); N18.31 Chronic kidney disease, stage 3a; I50.30 Unspecified diastolic (congestive) heart failure
CPT/HCPCS: 99214

== ENCOUNTER → 2025-04-03 15:35 | Outpatient (BNVA) | payer OTHER, SELFPAY | PROVIDERS: PCP Internal Medicine; Visit Provider Internal Medicine Hypertension Specialist | DX: E11.22 Type 2 diabetes mellitus with diabetic chronic kidney disease (principal); I13.0 Hypertensive heart and chronic kidney disease with heart failure and stage 1 through stage 4 chronic kidney disease, or unspecified chronic kidney disease; N18.31 Chronic kidney disease, stage 3a; I50.32 Chronic diastolic (congestive) heart failure | CPT/HCPCS: 99212 ==

== ENCOUNTER 2025-04-17 12:28 | Outpatient (AMB) | payer OTHER, SELFPAY ==
--- NOTE | 2025-04-17 12:40 | MHC.OFFVIS ---
Vital Signs 04/17/25 12:41 Height 5 ft 6 in Weight 203 lb BMI 32.8 BP 140/70 H Blood Pressure Location Lt brachial Position Sitting Pulse 74 Pulse Source Pulse Oximeter Intake Visit Reasons: 4 mos followup Auto Body Customizer Required: Yes Auto Body Customizer Services: Auto Body Customizer Offered & Declined Accompanied by: Son Allergies codeine (CODEINE) Allergy (Unknown, Verified 04/03/25 15:39) UNKNOWN lisinopril Allergy (Unknown, Uncoded 02/05/25 16:02) choking Medication List - Last Reconciled 04/17/25 by Markos Long MD aspirin (Adult Low Dose Aspirin) 81 mg PO DAILY BD Nicole 2nd Gen Pen Needle (pen needle, diabetic) 5 times a day NS blood sugar diagnostic As directed cholecalciferol (vitamin D3) (Vitamin D3) 25 mcg PO DAILY empagliflozin (Jardiance) 25 mg PO DAILY evolocumab (Repatha SureClick) 140 mg subcut Q2W ezetimibe 10 mg PO DAILY furosemide 80 mg PO BID insulin aspart (niacinamide) 100 unit/mL (3 mL) (Fiasp FlexTouch U-100 Insulin) subcut isosorbide mononitrate ER 60 mg PO DAILY lancets (FreeStyle Lancets) As directed metoprolol succinate ER 100 mg PO DAILY nitroglycerin 0.4 mg sublingually One tab under the tongue every 5 minutes as needed for chest pain up to 3; PRN; pen needle, diabetic (BD Ultra-Fine Nicole Pen Needle) As directed five times a day phenytoin sodium extended (Dilantin Extended) 200 mg PO BID pregabalin 300 mg PO BID rosuvastatin 40 mg PO DAILY HPI Comments Details: Andres is here for follow-up regarding his cardiac issues including diastolic congestive heart failure and coronary disease. According to family who is with him including the grandson, he is doing fine. He has not had any clear-cut symptoms like angina or shortness of breath or in fact anything cardiac sounding. He is getting along fine. Per family, he may also be having some cognitive decline. [facility], [facility] Medical History Mass of buttock Left buttock abscess Epidermal cyst Obesity due to excess calories CHF (congestive heart failure) Hypokalemia Diabetic nephropathy associated with type 2 diabetes mellitus CHF (congestive heart failure) Epilepsy Type 2 diabetes mellitus with hyperglycemia, with long-term current use of insulin Secondary hyperparathyroidism Diabetic neuropathy associated with type 2 diabetes mellitus CAD (coronary artery disease) (HFpEF) heart failure with preserved ejection fraction Hypertension Coronary stent patent BPH (benign prostatic hyperplasia) Dyslipidemia Neuropathy associated with endocrine disorder CKD (chronic kidney disease) Diabetes mellitus, type 2 Surgical History Stented coronary artery Hx of cardiac cath Family History Father Diabetes CVD (cardiovascular disease) Mother Diabetes CVD (cardiovascular disease) Brother Diabetes Son Thyroid disease Lung disease Psoriasis HTN (hypertension) Social History Household Members: Spouse, Family and Children Housing: Apartment Do you presently have visiting nurse or other home services: No Alcohol intake: never Patient Tobacco Use Status: Former Tobacco user Advance Directives Date on File: 05/18/21 service: No Current occupational status: retired Review of Systems Const Denies weakness ENT Denies dizziness Card Denies chest pain, Denies chest pain with activity, Denies syncope, Denies rapid heart rate, Denies pedal edema, Denies edema, Denies leg edema, Denies lightheadedness, Denies palpitations, Denies dyspnea, Denies dyspnea on exertion and Denies orthopnea Resp Denies cough, Denies dyspnea and Denies dyspnea on exertion GI Denies hematochezia and Denies change in stool character Musc Denies abnormal gait, Denies muscle cramps, Denies muscle weakness, Denies numbness, Denies radiating pain into limb and Denies tingling Neuro Denies abnormal gait, Denies dizziness, Denies syncope, Denies numbness, Denies tingling and Denies weakness Endo Denies palpitations Physical Exam Vital Signs: Last Vital Signs Pulse 74 04/17/25 12:41 BP 140/70 H 04/17/25 12:41 BMI result Body Mass Index 32.8 Const General: comfortable and no acute distress Orientation/consciousness: patient oriented x3 HEENT Other: Unremarkable Head: Yes normal to inspection Neck Neck: Yes normal visual inspection Chest Chest palpation & inspection: normal inspection of the chest Resp Other: Bilateral basal crackles Cardio Palpation: normal PMI Heart sounds: S1 normal heart sound present, S2 normal heart sound present, no gallops, no murmurs and no rubs GI Palpation (GI): Soft to palpation Back/Spine/Pelvis Other: unremarkable Skin General skin exam: no rashes or lesions noted Neuro General: patient oriented x3 Extrem General: Yes normal to inspection Psych Mental Status: mental status grossly normal Assessment & Plan Assessment & Plan (1) Chronic heart failure with preserved ejection fraction (HFpEF): Code(s): I50.32 - Chronic diastolic (congestive) heart failure Category: Medical Plan: Seems stable on diuretics. (2) Atherosclerotic cardiovascular disease: Code(s): I25.10 - Atherosclerotic heart disease of [place] coronary artery without angina pectoris Category: Medical Plan: He has a history of LAD stenting from 2018. He also has disease in the circumflex and right coronary artery. Echocardiogram from 2023 with hyperdynamic LVEF; no significant valvular findings. Ascending aortic size 4 cm. Normal perfusion imaging from 2023. He remains on aspirin, beta-blockers. On statins, Praluent. Advised to continue the injections. (3) First degree atrioventricular block: Code(s): I44.0 - Atrioventricular block, first degree Category: Medical Plan: Follow for any progressive conduction system disease. (4) Essential hypertension: Code(s): I10 - Essential (primary) hypertension Category: Medical Plan: Last time, we added lisinopril but it is no longer in his list. Family does not know what happened. No changes made today. (5) Type 2 diabetes mellitus with unspecified complications: Code(s): E11.8 - Type 2 diabetes mellitus with unspecified complications Category: Medical Plan: Last hemoglobin A1c is 8.4%. He is on insulin, Jardiance. (6) TIARA (obstructive sleep apnea): Code(s): G47.33 - Obstructive sleep apnea (adult) (pediatric) Category: Medical Plan: Per patient's family, he cannot tolerate CPAP mask and hence does not use this. Medications: Changed From nitroglycerin 0.4 mg sublingual One tab under the tongue every 5 minutes as needed for chest pain up to 3; 75 tabs 3RF I25.10 - Atherosclerotic heart disease of [place] coronary artery without angina pectoris To nitroglycerin 0.4 mg sublingually One tab under the tongue every 5 minutes as needed for chest pain up to 3; PRN; I25.10 - Atherosclerotic heart disease of [place] coronary artery without angina pectoris Discontinued evolocumab (Repatha Cassandraick) Discontinued Reason: Entered in error 140 mg subcut Q2W 6 mL 3RF Coding Level of Care Code Est Pt Level 4 (75916) Complex EM visit Add On G2211 Diagnoses Chronic heart failure with preserved ejection fraction (HFpEF) I50.32 Atherosclerotic cardiovascular disease I25.10 First degree atrioventricular block I44.0 Essential hypertension I10 Type 2 diabetes mellitus with unspecified complications E11.8 TIARA (obstructive sleep apnea) G47.33
[2025-04-17 12:41] VITALS: BP 140/70; PULSE 74; BMI 32.8
--- OUTSIDE RECORDS SUMMARY | 2025-04-17 13:36 | XMS_ITS | Clinical Summary ---
Author Organization [facility] Address [address] [place] [address] Care Team Providers Care Talent Acquisition Assistant Name Role Phone Unavailable Primary Care Provider [...] (1 of 2) 1991 Falls Prevention 2006 [id number] ( season) 2024 021, 02/10/2021 Alcohol and Drug Screen 10/30/2024 Depression Annual Screen 10/30/2024 Imm-Influenza (Season Ended) 2025 09/18/2020 Imm-Pneumococcal 65+ Completed 01/11/2017, 07/12/20 16 Insurance [place] MEDICAID Member Subscriber Plan / Payer (Ef fective 2021-Present) Name:Andres Weinstein Relation to Subscriber:Self Name:Andres Weinstein Payer ID:[id number] Type:Medicaid Address: [address] [id number] MEDICARE - [place]
== END 2025-04-17 12:59 | disposition home or self-care (01) ==
LOC: HO.HCS 12:30
PROVIDERS: PCP Internal Medicine; Visit Provider Internal Medicine
DX: I50.32 Chronic diastolic (congestive) heart failure (principal); I25.10 Atherosclerotic heart disease of native coronary artery without angina pectoris; I44.0 Atrioventricular block, first degree; I10 Essential (primary) hypertension; E11.8 Type 2 diabetes mellitus with unspecified complications; G47.33 Obstructive sleep apnea (adult) (pediatric)
CPT/HCPCS: 99214; G2211

== ENCOUNTER → 2025-04-17 12:28 | Outpatient (BNVA) | payer OTHER, SELFPAY | PROVIDERS: PCP Internal Medicine; Visit Provider Internal Medicine | DX: I50.32 Chronic diastolic (congestive) heart failure (principal); I25.10 Atherosclerotic heart disease of native coronary artery without angina pectoris; I44.0 Atrioventricular block, first degree; I10 Essential (primary) hypertension; E11.8 Type 2 diabetes mellitus with unspecified complications; G47.33 Obstructive sleep apnea (adult) (pediatric) | CPT/HCPCS: 99212 ==

== ENCOUNTER 2025-05-06 08:38 | Outpatient (REF) | payer OTHER, SELFPAY ==
--- OUTSIDE RECORDS SUMMARY | 2025-05-01 04:30 | XMS_ITS ---
Author Organization [facility] Address [address] [place] [address] Care Team Providers Care Forklift Wheel Loader Name Role Phone Pushpa Ruvalcaba Primary Care Provider Unavailab Dulce Cartwright Unavailable [phone] Pushpa Ruvalcaba Unavailable Unavailable Mi Contreras Unavailable [phone] REASON FOR VISIT no WAFER PRODUCTION WORKER ppwrk Encounters Encounter Location Date Provider Diagnosis [address] [address] 05/01/2025 Mi Contreras Plan Of Treatment Next Appt Details Provider Name:Dulce Laureano , 05/29/2025 09:30:00 AM, [address] [place], [address], Progress Notes * Zaire WEINSTEINeDOB:1940 (85 yo M)Acc No.[id number]:05/01/2025 Progress Notes Patient: Agatha Andres GRAHAM Provider: Timi Contreras DPM :1940 A ge:85 Y S ex:Male Date:05/01/2025 Address:[address] [place] [address], [address] Pcp:Pushpa Ruvalcaba Subjective: * Chief Complaints: * 1 . 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 * Medical History: Objective: * Vitals: Assessment: Plan: * Treatment: * Images: * The named appointment provid er may or may not be the originator of this progress note, and it is not deemed complete until electronically signed by the appointment provider. Sign off status: Pending * Provider: Timi Contreras, BECKIE Date: 05/01/2025 Generated for Bill duque/Carin/Jessica on: 05/06/2025 08:52 AM EDT
--- OUTSIDE RECORDS SUMMARY | 2025-05-06 08:53 | XMS_ITS | Clinical Summary ---
Author Organization [facility] Address [address] [place] [address] Care Team Providers Care Tourist Agent Name Role Phone Unavailable Primary Care Provider [...] (1 of 2) 1991 Falls Prevention 2006 Imm-RSV (adult) (1 - 1-dose 75+ series) 01/13/2016 [id number] ( season) 2024 021, 02/10/2021 Alcohol and Drug Screen 10/30/2024 Depression Annual Screen 10/30/2024 Imm-Influenza (Season Ended) 2025 09/18/2020 Imm-Pneumococcal 50+ Completed 01/11/2017, 07/12/20 16 Insurance [place] MEDICA[place] Member Subscriber Plan / Payer (Ef fective 2021-Present) Name:Andres Weinstein Relation to Subscriber:Self Name:Andres Weinstein Payer ID:[id number] Type:Medicaid Address: [address] [id number] MEDICARE - [place]
--- OUTSIDE RECORDS SUMMARY | 2025-05-06 08:53 | XMS_ITS | Patient Health Record ---
Author Organization [facility] Address [address] [place] [address] Care Team Providers Care Product Marketing Specialist Name Role Phone Pushpa Ruvalcaba Primary Care Provider UnavailSon Cage Unavailable [phone] Allergies Allergen (clinical drug ingredient) Drug/Non Drug Allergy documented on EMR Reaction Allergy Type Onset Date Status Tylenol/Codeine #3 Unknown Drug Allergy Active Lisinopril Unknown Drug Allergy Active Reason For Referral No Information Medications Medication SIG (Take, Route, Frequency, Duration) Notes Start Date End Date Status Phenytoin Sodium Extended 100 MG TOME MARTHA C?PSULAS POR V?A ORAL DOS VECES AL D?A Oral for 90 Active Valsartan-hydroCHLOROthia zide 320-25 MG TOME SERGO TABLETA POR V?A ORAL TODOS LOS D? Oral for 90 Active NovoLOG 100 UNIT/ML INJECT 30 UNITS TWIC E A DAY ANTES DE LAS COMIDAS Subcutaneous for 50 Active Omeprazole 20 MG 1 capsule Orally Onc e a day for heartburn for 30 day(s) 10/19/2017 Acti ve Zetia 10 MG 1 tablet Orally Once a day Active Tresiba FlexTouch 200 UNIT/ML INJECT 105 UNITS A DIARIO Subcutaneous for 34 Active Phenytoin Sodium 100 3 ORAL BID Active Zantac 75 75 MG 2 tablets Orally QD Active Dilantin 100 MG 3capsule Orally TWO times a day Active Crestor 40 MG 1 tablet Orally Once a day Active Metoprolol Succinate ER 50 MG 1 tablet Orally Once a day A ctive Aspirin 81 MG TOME SERGO TABLETA POR V?A ORAL TODOS LOS D? Oral for 30 Active Aspir-81 81 MG 1 tablet Orally Once a day Active Immunizations Vaccine Route Administration Date Status Comme nts Influenza Unknown 06/30/2017 Administered Social History Tobacco Use: Social History Observation Description Date Details (start date - stop date) Former Smoker NA - NA Tobacco Use/Smoking Question Answer Notes Patient is a former smoker How long has it been since you last smoked? > 10 years Section Notes: Nonsmoker; no alcohol Nonsmoker; no alcohol Problems Problem Type SNOMED Code ICD Code Onset Dates Problem Status W/U Status Risk Notes Problem [id number] Abdominal bloati ng (R14.0) Active confirmed Problem [id number] Gastroesophageal reflux disease without esophagitis (K21.9) Active confirmed Plan Of Treatment Future Test Test Name Order Date COLONOSCOPY 03/14/2013 Insurance Providers Payer Name Payer Address Payer Phone Subscriber Number Group Number Insured Name Patient Relationship to Insured Coverage Start Date Coverage End Date MEDICARE OF [place] [address] [place] [id number] MORALES Self - patient is the insured MEDICAID OF [facility] [address] [place] [id number] MORALES Self - patient is the insured Medical (General) History Medical History History ICD Code GERD-EGD in 12/2001-small HH-no Sanchez's nor sig. 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
--- OUTSIDE RECORDS SUMMARY | 2025-05-06 08:53 | XMS_ITS | Clinical Summary ---
Author Organization [facility] Address [address] [place] [address] Phone Care Team Providers Care Marketing Strategist Name Role Phone Pushpa Ruvalcaba MD Primary Care Provider [phone] Allergies Active Allergy Reactions Criticality Noted Date [...] type 2 diabetes mellitus 0 02/18/2021 Immunizations Immunization Administration Dates Next Due Moderna SARS-COV-2 02/10/2021 [...] Due Date Last Done Comments Pneumococcal Vaccine: 50+ Years (1 of 2 - PCV) 01/13/1960 Diabetes: Ophthalmology Exam 11/30/2020 Diabetes: Pedal Pulse Checked 11/30/2020 Diabetes: Sensory Foot Exam 11/30/2020 Diabetes: Visual Foot Exam 11/30/2020 Diabetes: Hemoglobin A1C 07/11/2023 023, 09/03/2020 Influenza Vaccine (#1) 2025 Hepatitis B Vaccine Aged Out No [...] Most Recently Relevant to Health Maintenance Insurance Medicare Medicaid [place] Medicare Medicaid [place] Care Teams Marketing Strategist Relationship Specialty Start Date End Date Pushpa Ruvalcaba MD [facility] PCP - General 11/09/20
[2025-05-06 08:58] LABS: MANUAL DIFF FLAG NO
[2025-05-06 09:37] LABS: Hematocrit 35.5 % (42.0-52.0); Hemoglobin 11.1 g/dl (14.0-18.0); Imm Gran Abs Auto 0.02 X10*3/uL (0.00-0.03); Imm Gran Pct Auto 0.3 % (0.0-0.4); Lymphocytes Absolute Auto 1.0 X10*3/uL (1.2-4.9); Mean Corpuscular HGB Conc 31.3 g/dl (31.0-36.0); Mean Corpuscular Hemoglobin 25.2 pg (27.0-33.0); Mean Corpuscular Volume 80.7 fL (80.0-98.0); NRBC Abs Auto 0.000 X10*3/uL (0.0-0.012); NRBC Pct Auto 0.0 /100WBC (0.0-0.2); Platelet Count 308 X10*3/uL (160-400); Red Blood Count 4.40 X10*6/uL (4.60-5.80); White Blood Count 7.2 X10*3/uL (4.8-10.8)
[2025-05-06 09:47] LABS: Hemoglobin A1C 244.4167 umol/L; Total Hemoglobin (HGBA1C) 3049.8480 umol/L
[2025-05-06 10:44] LABS: Alanine Aminotransferase 6 U/L (0-40); Albumin Level 3.7 g/dL (3.5-5.0); Alkaline Phosphatase 118 U/L (39-117); Anion Gap 13 (12-20); Aspartate Amino Transferase 15 U/L (5-37); Blood Urea Nitrogen 23 mg/dL (9-16); Calcium 9.2 mg/dL (8.4-10.2); Carbon Dioxide 27 mmol/L (22-29); Chloride 107 mmol/L (96-108); Estimated Glomerular Filt Rate 55; Potassium 4.0 mmol/L (3.3-5.1); Sodium 143 mmol/L (135-145); Total Protein 7.5 g/dL (6.5-8.0)
[2025-05-06 10:45] LABS: Ferritin 17 ng/mL (20-250)
[2025-05-06 11:00] LABS: Folate 12.3 ng/mL (> or = 4.0); Vitamin B12 338 pg/mL (200-900)
== END 2025-05-06 08:39 | disposition home or self-care (01) ==
LOC: HO.LAB 08:38
PROVIDERS: PCP Internal Medicine; Visit Provider Internal Medicine
DX: I13.0 Hypertensive heart and chronic kidney disease with heart failure and stage 1 through stage 4 chronic kidney disease, or unspecified chronic kidney disease (principal); E11.22 Type 2 diabetes mellitus with diabetic chronic kidney disease; E11.40 Type 2 diabetes mellitus with diabetic neuropathy, unspecified; E11.621 Type 2 diabetes mellitus with foot ulcer; N18.9 Chronic kidney disease, unspecified; D63.1 Anemia in chronic kidney disease; I50.43 Acute on chronic combined systolic (congestive) and diastolic (congestive) heart failure; L97.909 Non-pressure chronic ulcer of unspecified part of unspecified lower leg with unspecified severity; G40.109 Localization-related (focal) (partial) symptomatic epilepsy and epileptic syndromes with simple partial seizures, not intractable, without status epilepticus
CPT/HCPCS: 36415; 80053; 80185; 82607; 82728; 82746; 83036; 85025

== ENCOUNTER 2025-05-08 17:52 | Outpatient (REF) | payer OTHER, SELFPAY ==
--- OUTSIDE RECORDS SUMMARY | 2025-05-01 04:30 | XMS_ITS ---
Author Organization [facility] Address [address] [place] [address] Care Team Providers Care Survey Director Name Role Phone Pushpa Ruvalcaba Primary Care Provider Unavailab Dulce Cartwright Unavailable [phone] Pushpa Ruvalcaba Unavailable Unavailable Mi Contreras Unavailable [phone] REASON FOR VISIT no GEOMETRICIAN ppwrk Encounters Encounter Location Date Provider Diagnosis [address] [address] 05/01/2025 Mi Contreras Plan Of Treatment Next Appt Details Provider Name:Dulce Laureano , 05/29/2025 09:30:00 AM, [address] [place], [address], Progress Notes * Zaire WEINSTEINeDOB:1940 (85 yo M)Acc No.[id number]:05/01/2025 Progress Notes Patient: Agatha Andres GRAHAM Provider: Timi Contreras DPM :1940 A ge:85 Y S ex:Male Date:05/01/2025 Address:[address] [place] [address], [address] Pcp:Pushpa Ruvalcaba Subjective: * Chief Complaints: * 1 . no GEOMETRICIAN ppwrk. * Medical History: Objective: * Vitals: Assessment: Plan: * Treatment: * Images: * The named appointment provid er may or may not be the originator of this progress note, and it is not deemed complete until electronically signed by the appointment provider. Sign off status: Pending * Provider: Timi Contreras, DPAnna Date: 0 05/01/2025 Generated for Bill duque/Carin/Jessica on: 05/08/2025 05:56 PM EDT
--- OUTSIDE RECORDS SUMMARY | 2025-05-08 17:56 | XMS_ITS | Clinical Summary ---
Author Organization [facility] Address [address] [place] [address] Care Team Providers Care Amf Mechanic Name Role Phone Unavailable Primary Care Provider [...] (adult) (1 - 1-dose 75+ series) 01/13/2016 [id number] (2023- season) 2024 021, 02/10/2021 Alcohol and Drug Screen 10/30/2024 Depression Annual Screen 10/30/2024 Imm-Influenza (#1) 2025 09/18/2020 Imm-Pneumococcal 50+ Completed 01/11/2017, 07/12/20 16 Insurance [place] MEDICA[place] Member Subscriber Plan / Payer (Ef fective 2021-Present) Name:Andres Weinstein Relation to Subscriber:Self Name:Andres Weinstein Payer ID:[id number] Type:Medicaid Address: [address] [id number] MEDICARE - [place]
--- OUTSIDE RECORDS SUMMARY | 2025-05-08 17:56 | XMS_ITS | Clinical Summary ---
Author Organization [facility] Address [address] [place] [address] Phone Care Team Providers Care Mobile Home Installer Name Role Phone Pushpa Ruvalcaba MD Primary [...] UNITS POR V A SUBCUT MARIA GUADALUPE JOSE LUIS LOS D 1 Active rosuvastatin (CRESTOR) 40 MG tablet Take 40 mg by mouth 1 (one) time each day 1 Active valsartan (DIOVAN) 160 MG tablet TOME SERGO TABLETA TODOS LOS BUTTERFIEDL 1 Active cyclobenzaprine (FLEXERIL) 10 MG tablet [...] Medicaid [place] Medicare Medicaid [place] Care Teams Mobile Home Installer Relationship Specialty Start Date End Date Pushpa Ruvalcaba MD [facility] [address] PCP - General 11/09/20
--- OUTSIDE RECORDS SUMMARY | 2025-05-08 17:56 | XMS_ITS | Patient Health Record ---
Author Organization [facility] Address [address] [place] [address] Care Team Providers Care Immigration Lawyer Name Role Phone Pushpa Ruvalcaba Primary Care Provider UnavailSon Cage Unavailable [phone] Allergies Allergen (clinical drug ingredient) Drug/Non Drug [...] Problem Status W/U Status Risk Notes Problem [id number] Abdominal bloati ng (R14.0) Active confirmed Problem 285911004 Gastroesophageal reflux disease without esophagitis (K21.9) Active confirmed Plan Of Treatment Future Test Test Name Order Date COLONOSCOPY 03/14/2013 Insurance Providers Payer Name Payer Address Payer Phone Subscriber Number Group Number Insured Name Patient Relationship to Insured Coverage Start Date Coverage End Date MEDICARE OF [place] [address] [place] [id number] MORALES Self - patient is the insured MEDICAID OF [facility] [address] [place] [id number] MORALES Self - patient is the insured Medical (General) History Medical History History ICD Code GERD-EGD in 12/2001-small HH-no Sanchez's nor sig. 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
[2025-05-08 18:21] LABS: Microalbum/Creatinine Ratio Ur 47.6 ug/mg cr (<30)
== END 2025-05-08 17:53 | disposition home or self-care (01) ==
LOC: HO.LNP 17:52
PROVIDERS: Visit Provider Internal Medicine
DX: E11.621 Type 2 diabetes mellitus with foot ulcer (principal); F02.818 Dementia in other diseases classified elsewhere, unspecified severity, with other behavioral disturbance; I50.43 Acute on chronic combined systolic (congestive) and diastolic (congestive) heart failure; N18.9 Chronic kidney disease, unspecified
CPT/HCPCS: 82043; 82570; 87086

== ENCOUNTER 2025-05-10 09:40 | Outpatient (REF) | payer OTHER, SELFPAY ==
--- OUTSIDE RECORDS SUMMARY | 2025-05-10 09:43 | XMS_ITS | Clinical Summary ---
Author Organization [facility] Address [address] [place] [address] Phone Care Team Providers Care Toilet Products Molder Name Role Phone Pushpa Ruvalcaba MD Primary [...] Medicaid [place] Medicare Medicaid [place] Care Teams Toilet Products Molder Relationship Specialty Start Date End Date Pushpa Ruvalcaba MD [facility] [address] PCP - General 11/09/20
--- OUTSIDE RECORDS SUMMARY | 2025-05-10 09:43 | XMS_ITS | Clinical Summary ---
Author Organization [facility] Address [address] [place] [address] Care Team Providers Care Special Delivery Carrier Name Role Phone Unavailable Primary Care Provider [...] (adult) (1 - 1-dose 75+ series) 01/13/2016 [id number] (2023- season) 2024 021, 02/10/2021 Alcohol and Drug Screen 10/30/2024 Depression Annual Screen 10/30/2024 Imm-Influenza (#1) 2025 09/18/2020 Imm-Pneumococcal 50+ Completed 01/11/2017, 07/12/20 16 Insurance [place] MEDICA[place] Member Subscriber Plan / Payer (Ef fective 2021-Present) Name:Andres Weinstein Relation to Subscriber:Self Name:Andres Weinstein Payer ID:[id number] Type:Medicaid Address: [address] [id number] MEDICARE - [place]
--- OUTSIDE RECORDS SUMMARY | 2025-05-10 09:43 | XMS_ITS | Patient Health Record ---
Author Organization [facility] Address [address] [place] [address] Care Team Providers Care School Athletic Director Name Role Phone Pushpa Ruvalcaba Primary Care Provider UnavailSon Cage Unavailable [phone] Allergies Allergen (clinical drug ingredient) Drug/Non Drug [...] Problem Status W/U Status Risk Notes Problem [id number] Abdominal bloati ng (R14.0) Active confirmed Problem [id number] Gastroesophageal reflux disease without esophagitis (K21.9) Active confirmed Plan Of Treatment Future Test Test Name Order Date COLONOSCOPY 03/14/2013 Insurance Providers Payer Name Payer Address Payer Phone Subscriber Number Group Number Insured Name Patient Relationship to Insured Coverage Start Date Coverage End Date MEDICARE OF [place] [address] [place] [id number] MORALES Self - patient is the insured MEDICAID OF [facility] [address] [place] [id number] MORALES Self - patient is the insured Medical (General) History Medical History History ICD Code GERD-EGD in 12/2001-small HH-no Sanchez's nor sig. 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
[2025-05-10 10:26] LABS: Hemoglobin A1C 234.7585 umol/L; Total Hemoglobin (HGBA1C) 2950.0008 umol/L
== END 2025-05-10 09:41 | disposition home or self-care (01) ==
LOC: HO.LAB 09:40
PROVIDERS: PCP Internal Medicine; Visit Provider Surgery
DX: S91.301A Unspecified open wound, right foot, initial encounter (principal); X58.XXXA Exposure to other specified factors, initial encounter; Z13.1 Encounter for screening for diabetes mellitus
CPT/HCPCS: 36415; 83036; 85652; 86140

== ENCOUNTER → 2025-05-13 15:55 | Outpatient (BNV) | payer OTHER, SELFPAY | PROVIDERS: PCP Internal Medicine; Visit Provider Radiology Diagnostic Radiology | DX: S98.111A Complete traumatic amputation of right great toe, initial encounter (principal) | CPT/HCPCS: 73630 ==

== ENCOUNTER 2025-05-13 20:48 | Outpatient (REF) | payer OTHER, SELFPAY ==
--- NOTE | ~2025-05-13 | XR_ITS ---
EXAMINATION: XR FOOT, RIGHT CLINICAL INFORMATION: R/O OS COMPARISON: None available. TECHNIQUE: AP, lateral, and oblique views of the right foot. FINDINGS: Moderate vascular calcifications are visible. Sclerosis and osteophytes are present at the first tarsometatarsal joint. Small enthesophytes are present at the plantar fascia and Achilles insertion onto calcaneus. There is a small osteophyte involving anterior tibial plafonds. There is dorsal soft tissue swelling. There is a soft tissue defect involving the medial tip of the great toe extending to the tuft. No acute fracture is identified. XR/XR foot RT min 3V IMPRESSION: No acute fracture. 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 Electronically signed by: Jasmeet Locke MD 05/13/2025 04:17 PM EDT
== END 2025-05-13 20:49 | disposition home or self-care (01) ==
LOC: HO.XRAY 20:48
PROVIDERS: Visit Provider Radiology Diagnostic Radiology
DX: S91.301D Unspecified open wound, right foot, subsequent encounter (principal); X58.XXXD Exposure to other specified factors, subsequent encounter
CPT/HCPCS: 73630

== ENCOUNTER 2025-05-24 09:11 | Outpatient (REF) | payer OTHER, SELFPAY ==
--- OUTSIDE RECORDS SUMMARY | 2025-05-01 04:30 | XMS_ITS ---
Author Organization [facility] Address [address] [place] [address] Care Team Providers Care Qa Test Lead Name Role Phone Pushpa Ruvalcaba Primary Care Provider Unavailab ainsley Dulce Laureano Unavailable [phone] Pushpa Ruvalcaba Unavailable Unavailable Mi Contreras Unavailable [phone] REASON FOR VISIT no METEOROLOGIST LIAISON ppwrk Encounters Encounter Location Date Provider Diagnosis [address] [address] 05/01/2025 Mi Contreras Plan Of Treatment Next Appt Details Provider Name:Dulce Laureano , 05/29/2025 09:30:00 AM, [address] [place], [address], Progress Notes * Andres WEINSTEIN ADOB:[birth year] (85 yo M)Acc No.[id number]:05/01/2025 Progress Notes Patient: Agatha Andres GRAHAM Provider: Timi Contreras DPM :1940 A ge:85 Y S ex:Male Date:05/01/2025 Address:[address] [place] [address] Pcp:Pushpa Ruvalcaba Subjective: * Chief Complaints: * 1 . no METEOROLOGIST LIAISON ppwrk. * Medical History: Objective: * Vitals: Assessment: Plan: * Treatment: * Images: * The named appointment provid er may or may not be the originator of this progress note, and it is not deemed complete until electronically signed by the appointment provider. Sign off status: Pending * Provider: Timi Contreras DPM Date: 05/01/2025 Generated for Bill duque/Carin/Jessica on: 05/24/2025 09:12 AM EDT
--- OUTSIDE RECORDS SUMMARY | 2025-05-24 09:13 | XMS_ITS | Clinical Summary ---
Author Organization [facility] Address [address] [place] [address] Care Team Providers Care Director Technical Name Role Phone Unavailable Primary Care Provider [...] (adult) (1 - 1-dose 75+ series) 01/13/2016 [id number] (2023- season) 2024 021, 02/10/2021 Alcohol and Drug Screen 10/30/2024 Depression Annual Screen 10/30/2024 Imm-Influenza (#1) 2025 09/18/2020 Imm-Pneumococcal 50+ Completed 01/11/2017, 07/12/20 16 Insurance [place] Sub[place] Plan / Payer (Ef fective 2021-Present) Name:Andres Weinstein Relation to Subscriber:Self Name:Andres Weinstein Payer ID:[id number] Type:Medicaid Address: [address] [id number] MEDICARE - [place]
--- OUTSIDE RECORDS SUMMARY | 2025-05-24 09:13 | XMS_ITS | Clinical Summary ---
Author Organization [facility] Address [address] [place] [address] Phone Care Team Providers Care Captain Waiter/Waitress Name Role Phone Pushpa Ruvalcaba MD Primary [...] Medicaid [place] Medicare [place] Care Teams Captain Waiter/Waitress Relationship Specialty Start Date End Date Pushpa Ruvalcaba MD [facility] [address] PCP - General 11/09/20
--- OUTSIDE RECORDS SUMMARY | 2025-05-24 09:13 | XMS_ITS | Patient Health Record ---
Author Organization [facility] Address [address] [place] [address] Care Team Providers Care Home Health Rn Name Role Phone Pushpa Ruvalcaba Primary Care Provider UnavailSon Cage Unavailable [phone] Allergies Allergen (clinical drug ingredient) Drug/Non Drug Allergy documented on EMR Reaction Allergy Type Onset Date Status Tylenol/Codeine #3 Unknown Drug Allergy Active lisinopril Lisinopril Unknown Drug Allergy Activ e Reason For Referral No Information Medications Medication [...] Problem Status W/U Status Risk Notes Problem [id number] Abdominal bloati ng (R14.0) Active confirmed Problem 951712350 Gastroesophageal reflux disease without esophagitis (K21.9) Active confirmed Plan Of Treatment Future Test Test Name Order Date COLONOSCOPY 03/14/2013 Insurance Providers Payer Name Payer Address Payer Phone Subscriber Number Group Number Insured Name Patient Relationship to Insured Coverage Start Date Coverage End Date MEDICARE OF [place] [address] [place] [id number] MORALES Self - patient is the insured MEDICAID OF [facility] [address] [place] [id number] MORALES Self - patient is the insured Medical (General) History Medical History History ICD Code GERD-EGD in 12/2001-small HH-no Sanchez's nor sig. 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
[2025-05-24 10:10] LABS: Hemoglobin A1C 213.2817 umol/L; Total Hemoglobin (HGBA1C) 2916.5223 umol/L
[2025-05-24 10:43] LABS: Alanine Aminotransferase 8 U/L (0-40); Albumin Level 3.2 g/dL (3.5-5.0); Alkaline Phosphatase 129 U/L (39-117); Anion Gap 12 (12-20); Aspartate Amino Transferase 20 U/L (5-37); Blood Urea Nitrogen 17 mg/dL (9-16); Calcium 8.5 mg/dL (8.4-10.2); Carbon Dioxide 26 mmol/L (22-29); Chloride 108 mmol/L (96-108); Estimated Glomerular Filt Rate 49; Potassium 4.1 mmol/L (3.3-5.1); Sodium 142 mmol/L (135-145); Total Protein 6.9 g/dL (6.5-8.0)
== END 2025-05-24 09:12 | disposition home or self-care (01) ==
LOC: HO.LAB 09:11
PROVIDERS: PCP Internal Medicine; Visit Provider Internal Medicine
DX: E11.65 Type 2 diabetes mellitus with hyperglycemia (principal); E11.22 Type 2 diabetes mellitus with diabetic chronic kidney disease; I50.30 Unspecified diastolic (congestive) heart failure; N18.9 Chronic kidney disease, unspecified; D50.8 Other iron deficiency anemias
CPT/HCPCS: 36415; 80053; 83036

== ENCOUNTER 2025-06-23 08:08 | Outpatient (REF) | payer OTHER, SELFPAY ==
[2025-06-23 09:32] LABS: Blood Urea Nitrogen 28 mg/dL (9-16); Estimated Glomerular Filt Rate 59
== END 2025-06-23 08:09 | disposition home or self-care (01) ==
LOC: HO.LAB 08:08
PROVIDERS: PCP Internal Medicine; Visit Provider Radiology Vascular & Interventional Radiology
DX: R94.4 Abnormal results of kidney function studies (principal); R79.89 Other specified abnormal findings of blood chemistry
CPT/HCPCS: 36415; 82565; 84520

== ENCOUNTER 2025-06-25 20:45 | Outpatient (REF) | payer OTHER, SELFPAY ==
--- OUTSIDE RECORDS SUMMARY | 2025-05-01 04:30 | XMS_ITS ---
Author Organization [facility] Address [address] [place] [address] Care Team Providers Care Hvac/R Service Technician Name Role Phone Pushpa Ruvalcaba Primary Care Provider Unavailab ainsley Dulce Laureano Unavailable [phone] Pushpa Ruvalcaba Unavailable Unavailable Mi Contreras Unavailable [phone] REASON FOR VISIT no PUBLIC UTILITIES SALES REPRESENTATIVE ppwrk Encounters Encounter Location Date Provider Diagnosis [facility] [address] [place] [address] 05/01/2025 Mi Contreras Plan Of Treatment Next Appt Details Provider Name:Dulce Laureano , 09/15/2025 10:15:00 AM, [address] [place], [address], Progress Notes * Andres WEINSTEIN ADOB:[birth year] (85 yo M)Acc No.[id number]:05/01/2025 Progress Notes Patient: Agatha Andres GRAHAM Provider: Timi Contreras DPM :1940 A ge:85 Y S ex:Male Date:05/01/2025 Address:[address] [place] [address] Pcp:Pushpa Ruvalcaba Subjective: * Chief Complaints: * 1 . 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 * Medical History: Objective: * Vitals: Assessment: Plan: * Treatment: * Images: * The named appointment provid er may or may not be the originator of this progress note, and it is not deemed complete until electronically signed by the appointment provider. Sign off status: Pending * Provider: Timi Contreras DPM Date: 05/01/2025 Generated for Bill duque/Carin/Jessica on: 06/25/2025 08:47 PM EDT
--- OUTSIDE RECORDS SUMMARY | 2025-06-25 20:48 | XMS_ITS | Patient Health Record ---
Author Organization [facility] Address [address] [place] [address] Care Team Providers Care Hospital Admissions Clerk Name Role Phone Pushpa Ruvalcaba Primary Care Provider Unavailab Dulce Cartwright Unavailable [phone] Pushpa Ruvalcaba Unavailable Unavailable Mi Contreras Unavailable [phone] Allergies No Known Allergies Results Component Value Reference Range Notes HEMOGLOBIN A1C (GLYCOHEMOGLO BIN) Reviewed date:05/29/2025 09:43:31 AM Interpretation: Performing Lab: Notes/Report: HEMOGLOBIN A1C % (HH) 6.7 Reason For Referral No Information Medications Medication SIG (Take, Route, Frequency, Duration) Notes Start Date End Date Status Metoprolol Succinate ER 100 MG Oral; Duration: 90 Days Acti ve Aspirin Low Dose 81 MG Oral; Duration: 100 Days Active Tamsulosin HCl 0.4 MG Oral; Duration: 90 Days Active Pantoprazole Sodium 40 MG Oral; Duration: 90 Days Active Cephalexin 500 MG TOME 1 C PSULA POR V A ORAL DOS VECES AL D A Oral; Duration: 7 Days Active Fluticasone Propionate 50 MCG/ACT TODOS LOS D Nasal; Duration: 30 Days Active metOLazone 2.5 MG TOME SERGO TABLETA POR V A ORAL ONCE A WEEK FOR EDEMA Oral; Duration: 84 Days Active Doxycycline Hyclate 100 MG TOME 1 C PSUL A POR V A ORAL DAILY Oral; Duration: 14 Days Active Clindamycin HCl 300 MG TOME 1 C PSULA PO R V A ORAL MARTHA VECES AL D A Oral; Duration: 10 Days Active Lisinopril 10 MG TOME SERGO TABLETA POR V A ORAL A DIARIO Oral; Duration: 90 Days Active Doxycycline Monohydrate 75 MG Oral; Duration: 7 Days Activ e Ciprofloxacin HCl 500 MG TOME 1 TABLETA POR V A ORAL DOS VECES AL D A Oral; Duration: 10 Days Active Sertraline HCl 25 MG Oral; Duration: 90 Days Active Loratadine 10 MG Oral; Duration: 90 Days Active Jardiance 25 MG Oral; Duration: 90 Days Active Pregabalin 300 MG TOME 1 C PSULA POR V A ORAL DOS VECES AL D A Oral; Duration: 30 Days Active Rosuvastatin Calcium 40 MG Oral; Duration: 90 Days Active Isosorbide Mononitrate ER 60 MG TAKE 1 TABLET BY MOUTH DAILY . DOSE INCREASED Oral; Duration: 90 Days Active Furosemide 80 MG Oral; Duration: 90 Days Active FreeStyle Lite Test - CHECK SUGARS MARTHA VECES AL D A In Vitro; Duration: 90 Days Active Fiasp FlexTouch 100 UNIT/ML INJECT 12 UN ITS 3 TIMES A DAY Subcutaneous; Duration: 42 Days Active Phenytoin Sodium Extended 100 MG Oral; Duration: 90 Days Acti ve Ezetimibe 10 MG Oral; Duration: 90 Days Active Basaglar KwikPen 100 UNIT/ML INJECT 24 U NITS POR V A SUBCUT MARIA GUADALUPE AL ACOSTARSE Subcutaneous; Duration: 63 Days Active Praluent 75 MG/ML Subcutaneous; Durati on: 28 Days Active D3-1000 25 MCG (1000 UT) TAKE 1 CAPSULE BY MOUTH DAILY Oral; Duration: 90 Days Active FreeStyle Lancets - CHECK SUGARS MARTHA VE COLE AL D A; Duration: 90 Days Active HumaLOG KwikPen 100 UNIT/ML Subcutaneous ; Duration: 30 Days Active valACYclovir HCl 1 GM TOME 1 TABLETA POR V A ORAL MARTHA VECES AL D A Oral; Duration: 7 Days Active Nitroglycerin 0.4 MG TAKE ONE CUANDO SEA NECESARIO FOR CHEST PAIN DIRECTED BY Sublingual; Duration: 90 Days Active Immunizations Vaccine Route Administration Date Status Comme nts Influenza Unknown 06/30/2024 Administered Social History Tobacco Use: Social History Observation Description Date Details (start date - stop date) Never Smoker NA - NA Tobacco Control (Standard) Question Answer Notes Tobacco use: Nonsmoker AUDIT-C (Standard) Question Answer Notes Did you have a drink containing alcohol in the p ast year? 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 Problem Polyneuropathy due to type 2 diabetes mellitus (862589422) Type 2 diabetes mellitus with diabetic polyneuropathy (E11.42) Active confirmed Problem Foot ulcer due to type 2 diabetes mellitus (5674852538821) Type 2 diabetes mellitus with foot ulcer (E11.621) Active confirmed Problem Bilateral atherosclerosis of arteries of lower limbs (disorder) (50242017146198142 ) Atherosclerosis of viejas artery of both lower extremities, with unspecified presence of clinical manifestation (I70.203) Active confirmed Q7(A), Q8(2B), Q9(1B,2 C) Problem Skin ulcer of to e of right foot with necrosis of bone (L97.514) Active confirmed Vital Signs Blood pressure diastolic 80 mm Hg 05/29/2025 Height 5 ft 4 in in 05/29/2025 Blood pressure systolic 132 mm Hg 05/29/2025 Weight 208 lbs 05/29/2025 BMI 35.7 kg/m2 05/29/2025 Procedures Procedure Date Ordered Date Performed Result Body Sit e 69256-HPETYRF NAIL, 6 OR MORE 05/29/2025 N/A 03150-BNPH SKIN LESIONS, 2 TO 4 05/29/2025 N/A Encounters Encounter Location Date Provider Diagnosis [address] [address] 05/29/2025 Dulce Black Type 2 diabetes mellitus with diabetic polyneuropathy E11.42 ; Tinea unguium B35.1 ; Atherosclerosis of viejas artery of both lower extremities, with unspecified presence of clinical manifestation I70.203 ; 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 L97.514 ; 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.514 and Type 2 diabetes mellitus with foot ulcer E11.[address] [address] 04/24/2025 Mi Contreras [address] [address] 05/29/2025 Dulce Laureano Assessments Encounter Date Diagnosis (ICD Code) Assessment Notes Treatment Notes Treatment Clinical Notes Section Notes 05/29/2025 Tinea unguium (ICD-10 - B35.1) 05/29/2025 Type 2 diabetes mellitus with diabetic polyneuropathy (ICD-10 - E11.42) 05/29/2025 Atherosclerosis of viejas artery of both lower extremities, with unspecified presence of clinical manifestation (ICD-10 - I70.203) Q7(A), Q8(2B), Q9(1B,2C) 05/29/2025 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 (ICD-10 - L97.514) 05/29/2025 Non-pressure chronic ulcer of other part of right foot with necrosis of bone (ICD-10 - L97.514) 05/29/2025 Type 2 diabetes mellitus with foot ulcer (ICD-10 - E11.621) Plan Of Treatment Pending Test Test Name Order Date 65734-MSEIFQZ NAIL, 6 OR MORE 05/29/2025 09525-GQHO SKIN LESIONS, 2 TO 4 05/29/20 25 Next Appt Details Provider Name:Dulce Laureano , 09/15/2025 10:15:00 AM, [address] [place] [address], [phone], Insurance Providers Payer Name Payer Address Payer Phone Subscriber Number Group Number Insured Name Patient Relationship to Insured Coverage Start Date Coverage End Date [facility] [address] [place] [phone] [id number] Andres Weinstein Self - patient is the insured Medical (General) History Medical History History ICD Code Diabetic High Blood Pressure Seizures Lumbar radiculopathy Congestive heart failure edema CLD
--- OUTSIDE RECORDS SUMMARY | 2025-06-25 20:48 | XMS_ITS | Clinical Summary ---
Author Organization [facility] Address [address] [place] [address] Care Team Providers Care Motel Maid Name Role Phone Unavailable Primary Care Provider [...] (adult) (1 - 1-dose 75+ series) 01/13/2016 Pyk-SLDCE-32 (2023- season) 2024 021, 02/10/2021 Alcohol and Drug Screen 10/30/2024 Depression Annual Screen 10/30/2024 Imm-Influenza (#1) 2025 09/18/2020 Imm-Pneumococcal 50+ Completed 01/11/2017, 07/12/20 16 Insurance [place] MED[place] Member Subscriber Plan / Payer (Ef fective 2021-Present) Name:Andres Weinstein Relation to Subscriber:Self Name:Andres Weinstein Payer ID:[id number] Type:Medicaid Address: [address] [id number] MEDICARE - [place]
--- OUTSIDE RECORDS SUMMARY | 2025-06-25 20:48 | XMS_ITS | Clinical Summary ---
Author Organization [facility] Address [address] [place] [address] Phone Care Team Providers Care Hygiene Assistant Name Role Phone Pushpa Ruvalcaba MD Primary [...] Medicaid [place] Care Teams Hygiene Assistant Relationship Specialty Start Date End Date Pushpa Ruvalcaba MD [facility] PCP - General 11/09/20
--- OUTSIDE RECORDS SUMMARY | 2025-06-25 20:48 | XMS_ITS | Patient Health Record ---
Author Organization [facility] Address [address] [place] [address] Care Team Providers Care Forge Operator Name Role Phone Pushpa Ruvalcaba Primary Care Provider UnavailSon Cage Unavailable [phone] Allergies Allergen (clinical drug ingredient) Drug/Non Drug [...] Problem Status W/U Status Risk Notes Problem [id number] Abdominal bloati ng (R14.0) Active confirmed Problem 564729865 Gastroesophageal reflux disease without esophagitis (K21.9) Active confirmed Plan Of Treatment Future Test Test Name Order Date COLONOSCOPY 03/14/2013 Insurance Providers Payer Name Payer Address Payer Phone Subscriber Number Group Number Insured Name Patient Relationship to Insured Coverage Start Date Coverage End Date MED[place]ARE OF [place] [address] [place] [id number] MORALES Self - patient is the insured MEDICAID OF [facility] [address] [place] [id number] MORALES Self - patient is the insured Medical (General) History Medical History History ICD Code GERD-EGD in 12/2001-small HH-no Sanchez's nor sig. 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
== END 2025-06-25 20:46 | disposition home or self-care (01) ==
LOC: HO.XRAY 20:45
PROVIDERS: Visit Provider Radiology Diagnostic Radiology
DX: Z13.89 Encounter for screening for other disorder (principal)

== ENCOUNTER 2025-06-27 13:19 | Emergency (ER) | payer OTHER, SELFPAY ==
--- OUTSIDE RECORDS SUMMARY | 2025-05-01 04:30 | XMS_ITS ---
Author Organization [facility] Address [address] [place] [address] Care Team Providers Care Precision Machining Instructor Name Role Phone Pushpa Ruvalcaba Primary Care Provider Unavailab ainsley Dulce Laureano Unavailable [phone] Pushpa Ruvalcaba Unavailable Unavailable Mi Contreras Unavailable [phone] REASON FOR VISIT no FOLDER AND NOTCHER ppwrk Encounters Encounter Location Date Provider Diagnosis [facility] [address] [place] [address] 05/01/2025 Mi Contreras Plan Of Treatment Next Appt Details Provider Name:Dulce Laureano , 09/15/2025 10:15:00 AM, [address] [place], [address], Progress Notes * Andres WEINSTEIN ADOB:[birth year] (85 yo M)Acc No.[id number]:05/01/2025 Progress Notes Patient: Agatha Andres GRAHAM Provider: Timi Contreras DPM :1940 A ge:85 Y S ex:Male Date:05/01/2025 Address:[address] [place] [address] Pcp:Pushpa Ruvalcaba Subjective: * Chief Complaints: * 1 . no FOLDER AND NOTCHER ppwrk. * Medical History: Objective: * Vitals: Assessment: Plan: * Treatment: * Images: * The named appointment provid er may or may not be the originator of this progress note, and it is not deemed complete until electronically signed by the appointment provider. Sign off status: Pending * Provider: Timi Contreras DPM Date: 05/01/2025 Generated for Bill duque/Carin/Jessica on: 06/27/2025 02:09 PM EDT
--- NOTE | ~2025-06-27 | XR_ITS ---
EXAMINATION: XR FOOT, RIGHT CLINICAL INFORMATION: pain COMPARISON: None available. TECHNIQUE: AP, lateral, and oblique views of the right foot. FINDINGS: Marginal ossified is are present involving the first tarsometatarsal and IP joints and base of the second and fifth proximal phalanx. There is enthesophyte at involving the lateral base of fourth proximal phalanx. There is moderate narrowing of the first tarsometatarsal joint. Moderate to severe vascular calcifications are present. 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
[2025-06-27 13:29] VITALS: BP 149/67; PULSE 79; RESP 16; TEMP 36.7; O2SAT 97; BMI 33.7
--- NOTE | 2025-06-27 13:32 | ED_ITS ---
HPI - General Adult General Chief complaint: Wound/Laceration Stated complaint: infected toes on right foot Time Seen by Provider: 06/27/25 13:49 Source: patient Mode of arrival: ambulatory Limitations: no limitations History of Present Illness ED Provider: Kali Li HPI narrative: 85-year-old male with pmh of diabetes, HTN, CHF, BPH, PAD presents to the ED for chronic wound on right toes. patient sent to ED for evaluation by visiting nurse. Patient was seen yesterday at [facility] for angiogram for evaluation and stenting. Patient states he has no symptoms, but visiting nurse states wound is malodorous and worsening blackenss of toes. Patient denies any chest pain, calf pain, or leg swelling. Related Data Home Medications ?Medication ?Instructions ?Recorded ?Confirmed aspirin 81 mg tablet,delayed 81 mg PO DAILY 08/12/20 0 04/17/25 release (Adult Low Dose Aspirin) rosuvastatin 40 mg tablet 40 mg PO DAILY 08/12/2003/30 blood sugar diagnostic #10 ea 09/15/20 04/17/25 lancets 28 gauge (FreeStyle #100 ea 07/20/22 04/17/25 Lancets) metoprolol succinate 100 mg 100 mg PO DAILY 03/11/24 0 04/17/25 tablet,extended release 24 hr pregabalin 300 mg capsule 300 mg PO BID 03/11/2404/17 phenytoin sodium extended 100 mg 200 mg PO BID 4 04/17/25 capsule (Dilantin Extended) empagliflozin 25 mg tablet 25 mg PO DAILY 06/20/24 (Jardiance) cholecalciferol (vitamin D3) 25 25 mcg PO DAILY 04/17/25 mcg (1,000 unit) capsule (Vitamin D3) ezetimibe 10 mg tablet 10 mg PO DAILY 12/23/2403/30 insulin aspart subcut 12/23/24 04/17/25 (niacinamide)(U-100) 100 unit/mL(3 mL) subcutaneous pen (Fiasp FlexTouch U-100 Insulin) nitroglycerin 0.4 mg sublingual 0.4 mg sublingual .COM PLEX PRN 04/17/25 04/17/25 tablet Previous Rx's ?Medication ?Instructions ?Recorded furosemide 80 mg tablet 80 mg PO BID #180 tabs 12/29 pen needle, diabetic 32 gauge x #150 ea 02/15/22 (BD Ultra-Fine Nicole Pen Needle) BD Nicole 2nd Gen Pen Needle 32 #200 ea 04/19/22 gauge x (pen needle, diabetic) isosorbide mononitrate 60 mg 60 mg PO DAILY #90 tabs 0 03/07/25 tablet,extended release 24 hr alirocumab 75 mg/mL subcutaneous 75 mg subcut Q2W #2 m L 04/17/25 pen injector (Praluent Pen) doxycycline hyclate 100 mg tablet 100 mg PO BID #14 ta bs 06/27/25 Allergies Allergy/AdvReac Type Severity Reaction Status Date / Time codeine (CODEINE) Allergy Unknown UNKNOWN Verified 06/27/25 13:35 lisinopril Allergy Unknown choking Uncoded 02/05/25 16:02 Review of Systems 2 Review of Systems: RIght toe wounds Yes all other systems are reviewed and are negative [facility] Past Medical History Medical History Mass of buttock Left buttock abscess Epidermal cyst Obesity due to excess calories CHF (congestive heart failure) Hypokalemia Diabetic nephropathy associated with type 2 diabetes mellitus CHF (congestive heart failure) Epilepsy Type 2 diabetes mellitus with hyperglycemia, with long-term current use of insulin Secondary hyperparathyroidism Diabetic neuropathy associated with type 2 diabetes mellitus CAD (coronary artery disease) (HFpEF) heart failure with preserved ejection fraction Hypertension Coronary stent patent BPH (benign prostatic hyperplasia) Dyslipidemia Neuropathy associated with endocrine disorder CKD (chronic kidney disease) Diabetes mellitus, type 2 Surgical History Stented coronary artery Hx of cardiac cath Family History Family History Father Diabetes CVD (cardiovascular disease) Mother Diabetes CVD (cardiovascular disease) Brother Diabetes Son Thyroid disease Lung disease Psoriasis HTN (hypertension) Social History Social History Household Members: Spouse, Family and Children Housing: Apartment Do you presently have visiting nurse or other home services: No Alcohol intake: never Patient Tobacco Use Status: Former Tobacco user Smoked in Last 30 Days: No Use of substances other than those prescribed or required for medical reasons: No Advance Directives: Yes Advance Directives Information Provided: Yes Advance Directives on File: No Advance Directives Date on File: 05/18/21 service: No Current occupational status: retired Physical Exam ED Vital Signs: Vital Signs - 24 hr 06/27/25 13:29 06/27/25 16:29 06/27/25 17:22 Temperature 98.0 F 97.6 F Pulse Rate 79 66 68 Respiratory Rate 16 14 16 Blood Pressure 149/67 H 134/53 L 113/75 Pulse Oximetry 97 100 Oxygen Delivery Method Room Air Room Air 06/27/25 17:38 Temperature 98.5 F Pulse Rate 65 Respiratory Rate 18 Blood Pressure 132/66 Pulse Oximetry 100 Oxygen Delivery Method Room Air BMI result Body Mass Index 33.7 Const General: cooperative, healthy appearing, comfortable, no acute distress, well developed, alert, awake and Physically active Orientation/consciousness: patient oriented x3 HENMT Head: Yes normal to inspection, Yes No palpable skull fracture present, Yes normocephalic and Yes atraumatic Eyes General: appearance normal, both eyes and all related structures Neck Neck: Yes normal visual inspection, Yes full ROM, Yes no lymphadenopathy, Yes no meningeal signs, Yes trachea midline, Yes supple, No anterior neck swelling and No tender Chest Chest palpation & inspection: normal inspection of the chest and normal palpation of entire chest wall Resp Effort & Inspection: normal respiratory effort and able to speak in complete sentences Auscultation: clear to auscultation bilaterally Cardio Jugular venous distension: no JVD Heart sounds: S1 normal heart sound present and S2 normal heart sound present GI Inspection: Yes normal to inspection Palpation (GI): Soft to palpation, not firm, nontender and no guarding General: Yes no CVA tenderness Back/Spine/Pelvis Back: no CVA tenderness and No back tenderness Skin General skin exam: no rashes or lesions noted, elasticity normal and turgor normal Neuro General: patient oriented x3, gait normal, tone normal, moves all extremities, Normal light touch and pain sensation, no meningeal signs, no focal motor deficits, CN's II-XI intact bilaterally and normal sensation to monofilament Extrem Other: Psych Appearance: grossly normal, well kempt and not disheveled Course Course Course Narrative: RME, this is a rapid medical exam performed by Bry Garces please refer to primary provider for complete H&P- 85-year-old male presents for evaluation of wounds to the right great toe and 4th toe. The patient has a history of diabetes, he has been following with Wound Care failure about 6 months. Has eschar to the right great toe and 4th toe. Apparently wound care felt a seems infected. Plan for labs, x-ray of the right foot to evaluate for osteomyelitis. Medications Administered Discontinued Medications Generic Name Dose Route Start Last Admin Trade Name Bryson PRN Reason Stop Dose Admin Acetaminophen 975 mg 06/27/25 17:45 06/27/25 17:51 Acetaminophen 325 Mg Tablet PO 06/27/25 17:46 Not Given ONCE ONE Sodium Chloride 1,000 mls @ 999 mls/hr 06/27/25 15:32 06/27/25 17:03 Ns IV 06/27/25 16:32 Infused .Q1H1M STA Infusion Medical Decision Making Medical Decision Making [facility] Narrative: 85-year-old male history of diabetes preserved ejection fraction CHF and CKD stage II presents to ED for chronic lower extremity wound patient was sent here by visiting nurse due to maldodrous odor of wounds, worsening black toes and erythema. . Patient had endovascular procedure yesterday at [facility] to help with healing. Patient denies any calf pain,foot pain, chest pain or shortness of breath.. Lactic acid slightly elevated. ESR CRP at baseline 4:05pm: Patient evaluated by Dr. Alejandra surgeon nerve specialist who Knows about patinet. She also spoke with vascular surgeon MATT Sanderson who was part of the procedure yesterday and states patient's procedure was successful and patient does have pulses. Patient has pulses on Doppler. Dr. Alejandra's states patient can be discharged and follow up with Dr. Franklin of interventional vascular radiology and also patient should be discharged with doxycycline no need for admission. 5:38pm: Repeat lactic normal. Not suspecting DVT, compartment syndrome, PE, osteomyelitits, necrotizing fascitis, arterail occlusions, or any other life threatening etiology. Patient explained worrisome signs and informed to return to the ED immidately. Differential Diagnosis Differential Diagnoses: The differential diagnosis associated with the presentation includes (Osteomyelitis, peripheral arterial disease, arterial occlusion) Admission/Observation Consideration of admission/observation: Escalation of care including admission/observation considered Lab Data [facility] Lab Attestation statement: I reviewed the patient's lab results. 06/27/25 14:12 06/27/25 14:11 Labs: Lab Results 06/27/25 06/27/25 06/27/25 Range/Units 14:11 14:11 14:11 WBC (4.8-10.8) X10*3/uL RBC (4.60-5.80) X10*6/uL Hgb (14.0-18.0) g/dl Hct (42.0-52.0) % MCV (80.0-98.0) fL MCH (27.0-33.0) pg MCHC (31.0-36.0) g/dl RDW (11.0-16.0) % Plt Count (160-400) X10*3/uL MPV (9.4-12.4) fL Immature Gran % (Auto) (0.0-0.4) % Neut % (Auto) (45-73) % Lymph % (Auto) (20-40) % [place] % (Auto) (2-11) % Eos % (Auto) (0-4) % Baso % (Auto) (0-2) % Lymph # (Auto) (1.2-4.9) X10*3/uL [place] # (Auto) (0.1-1.2) X10*3/uL Eos # (Auto) (0.0-0.4) X10*3/uL Baso # (Auto) (0.0-0.2) X10*3/uL Abs Immat Gran (auto) (0.00-0.03) X10*3/uL Absolute Neuts (auto) (2.0-8.3) x10*3/uL Absolute Nucleated RBC (0.0-0.012) X10*3/uL Nucleated RBC % (auto) (0.0-0.2) /100WBC ESR 55 H (0-15) MM/HR Sodium 142 Cancelled (135-145) mmol/L Potassium 4.5 Cancelled (3.3-5.1) mmol/L Chloride 108 (96-108) mmol/L Carbon Dioxide (22-29) mmol/L Anion Gap (12-20) BUN (9-16) mg/dL Creatinine (0.5-1.4) mg/dL Estim Creat Clear Calc Estimated GFR Random Glucose (60-115) mg/dL Lactic Acid (0.5-2.0) mmol/L Lactic Acid F/U @ 2Hr (0.5-2.0) mmol/L Calcium (8.4-10.2) mg/dL Total Bilirubin (0.0-1.0) mg/dL AST (5-37) U/L ALT (0-40) U/L Alkaline Phosphatase (39-117) U/L C-Reactive Protein (< or = 0.50) mg/dL B-Natriuretic Peptide (<100) pg/mL Total Protein (6.5-8.0) g/dL Albumin (3.5-5.0) g/dL 06/27/25 06/27/25 06/27/25 Range/Units 14:11 14:11 14:11 WBC (4.8-10.8) X10*3/uL RBC (4.60-5.80) X10*6/uL Hgb (14.0-18.0) g/dl Hct (42.0-52.0) % MCV (80.0-98.0) fL MCH (27.0-33.0) pg MCHC (31.0-36.0) g/dl RDW (11.0-16.0) % Plt Count (160-400) X10*3/uL MPV (9.4-12.4) fL Immature Gran % (Auto) (0.0-0.4) % Neut % (Auto) (45-73) % Lymph % (Auto) (20-40) % [place] % (Auto) (2-11) % Eos % (Auto) (0-4) % Baso % (Auto) (0-2) % Lymph # (Auto) (1.2-4.9) X10*3/uL [place] # (Auto) (0.1-1.2) X10*3/uL Eos # (Auto) (0.0-0.4) X10*3/uL Baso # (Auto) (0.0-0.2) X10*3/uL Abs Immat Gran (auto) (0.00-0.03) X10*3/uL Absolute Neuts (auto) (2.0-8.3) x10*3/uL Absolute Nucleated RBC (0.0-0.012) X10*3/uL Nucleated RBC % (auto) (0.0-0.2) /100WBC ESR (0-15) MM/HR Sodium (135-145) mmol/L Potassium (3.3-5.1) mmol/L Chloride Cancelled (96-108) mmol/L Carbon Dioxide 25 Cancelled (22-29) mmol/L Anion Gap 14 Cancelled (12-20) BUN 25 H (9-16) mg/dL Creatinine (0.5-1.4) mg/dL Estim Creat Clear Calc Estimated GFR Random Glucose (60-115) mg/dL Lactic Acid (0.5-2.0) mmol/L Lactic Acid F/U @ 2Hr (0.5-2.0) mmol/L Calcium (8.4-10.2) mg/dL Total Bilirubin (0.0-1.0) mg/dL AST (5-37) U/L ALT (0-40) U/L Alkaline Phosphatase (39-117) U/L C-Reactive Protein (< or = 0.50) mg/dL B-Natriuretic Peptide (<100) pg/mL Total Protein (6.5-8.0) g/dL Albumin (3.5-5.0) g/dL 06/27/25 06/27/25 06/27/25 Range/Units 14:11 14:11 14:11 WBC (4.8-10.8) X10*3/uL RBC (4.60-5.80) X10*6/uL Hgb (14.0-18.0) g/dl Hct (42.0-52.0) % MCV (80.0-98.0) fL MCH (27.0-33.0) pg MCHC (31.0-36.0) g/dl RDW (11.0-16.0) % Plt Count (160-400) X10*3/uL MPV (9.4-12.4) fL Immature Gran % (Auto) (0.0-0.4) % Neut % (Auto) (45-73) % Lymph % (Auto) (20-40) % [place] % (Auto) (2-11) % Eos % (Auto) (0-4) % Baso % (Auto) (0-2) % Lymph # (Auto) (1.2-4.9) X10*3/uL [place] # (Auto) (0.1-1.2) X10*3/uL Eos # (Auto) (0.0-0.4) X10*3/uL Baso # (Auto) (0.0-0.2) X10*3/uL Abs Immat Gran (auto) (0.00-0.03) X10*3/uL Absolute Neuts (auto) (2.0-8.3) x10*3/uL Absolute Nucleated RBC (0.0-0.012) X10*3/uL Nucleated RBC % (auto) (0.0-0.2) /100WBC ESR (0-15) MM/HR Sodium (135-145) mmol/L Potassium (3.3-5.1) mmol/L Chloride (96-108) mmol/L Carbon Dioxide (22-29) mmol/L Anion Gap (12-20) BUN Cancelled (9-16) mg/dL Creatinine 1.31 Cancelled (0.5-1.4) mg/dL Estim Creat Clear Calc 43.7 Cancelled Estimated GFR 52 Random Glucose (60-115) mg/dL Lactic Acid (0.5-2.0) mmol/L Lactic Acid F/U @ 2Hr (0.5-2.0) mmol/L Calcium (8.4-10.2) mg/dL Total Bilirubin (0.0-1.0) mg/dL AST (5-37) U/L ALT (0-40) U/L Alkaline Phosphatase (39-117) U/L C-Reactive Protein (< or = 0.50) mg/dL B-Natriuretic Peptide (<100) pg/mL Total Protein (6.5-8.0) g/dL Albumin (3.5-5.0) g/dL 06/27/25 06/27/25 06/27/25 Range/Units 14:11 14:11 14:11 WBC (4.8-10.8) X10*3/uL RBC (4.60-5.80) X10*6/uL Hgb (14.0-18.0) g/dl Hct (42.0-52.0) % MCV (80.0-98.0) fL MCH (27.0-33.0) pg MCHC (31.0-36.0) g/dl RDW (11.0-16.0) % Plt Count (160-400) X10*3/uL MPV (9.4-12.4) fL Immature Gran % (Auto) (0.0-0.4) % Neut % (Auto) (45-73) % Lymph % (Auto) (20-40) % [place] % (Auto) (2-11) % Eos % (Auto) (0-4) % Baso % (Auto) (0-2) % Lymph # (Auto) (1.2-4.9) X10*3/uL [place] # (Auto) (0.1-1.2) X10*3/uL Eos # (Auto) (0.0-0.4) X10*3/uL Baso # (Auto) (0.0-0.2) X10*3/uL Abs Immat Gran (auto) (0.00-0.03) X10*3/uL Absolute Neuts (auto) (2.0-8.3) x10*3/uL Absolute Nucleated RBC (0.0-0.012) X10*3/uL Nucleated RBC % (auto) (0.0-0.2) /100WBC ESR (0-15) MM/HR Sodium (135-145) mmol/L Potassium (3.3-5.1) mmol/L Chloride (96-108) mmol/L Carbon Dioxide (22-29) mmol/L Anion Gap (12-20) BUN (9-16) mg/dL Creatinine (0.5-1.4) mg/dL Estim Creat Clear Calc Estimated GFR Cancelled Random Glucose 228 H Cancelled (60-115) mg/dL Lactic Acid (0.5-2.0) mmol/L Lactic Acid F/U @ 2Hr (0.5-2.0) mmol/L Calcium 9.0 Cancelled (8.4-10.2) mg/dL Total Bilirubin 0.2 (0.0-1.0) mg/dL AST (5-37) U/L ALT (0-40) U/L Alkaline Phosphatase (39-117) U/L C-Reactive Protein (< or = 0.50) mg/dL B-Natriuretic Peptide (<100) pg/mL Total Protein (6.5-8.0) g/dL Albumin (3.5-5.0) g/dL 06/27/25 06/27/25 06/27/25 Range/Units 14:11 14:11 14:11 WBC (4.8-10.8) X10*3/uL RBC (4.60-5.80) X10*6/uL Hgb (14.0-18.0) g/dl Hct (42.0-52.0) % MCV (80.0-98.0) fL MCH (27.0-33.0) pg MCHC (31.0-36.0) g/dl RDW (11.0-16.0) % Plt Count (160-400) X10*3/uL MPV (9.4-12.4) fL Immature Gran % (Auto) (0.0-0.4) % Neut % (Auto) (45-73) % Lymph % (Auto) (20-40) % [place] % (Auto) (2-11) % Eos % (Auto) (0-4) % Baso % (Auto) (0-2) % Lymph # (Auto) (1.2-4.9) X10*3/uL [place] # (Auto) (0.1-1.2) X10*3/uL Eos # (Auto) (0.0-0.4) X10*3/uL Baso # (Auto) (0.0-0.2) X10*3/uL Abs Immat Gran (auto) (0.00-0.03) X10*3/uL Absolute Neuts (auto) (2.0-8.3) x10*3/uL Absolute Nucleated RBC (0.0-0.012) X10*3/uL Nucleated RBC % (auto) (0.0-0.2) /100WBC ESR (0-15) MM/HR Sodium (135-145) mmol/L Potassium (3.3-5.1) mmol/L Chloride (96-108) mmol/L Carbon Dioxide (22-29) mmol/L Anion Gap (12-20) BUN (9-16) mg/dL Creatinine (0.5-1.4) mg/dL Estim Creat Clear Calc Estimated GFR Random Glucose (60-115) mg/dL Lactic Acid (0.5-2.0) mmol/L Lactic Acid F/U @ 2Hr (0.5-2.0) mmol/L Calcium (8.4-10.2) mg/dL Total Bilirubin Cancelled (0.0-1.0) mg/dL AST 28 Cancelled (5-37) U/L ALT 6 Cancelled (0-40) U/L Alkaline Phosphatase 99 (39-117) U/L C-Reactive Protein (< or = 0.50) mg/dL B-Natriuretic Peptide (<100) pg/mL Total Protein (6.5-8.0) g/dL Albumin (3.5-5.0) g/dL 06/27/25 06/27/25 06/27/25 Range/Units 14:11 14:11 14:11 WBC (4.8-10.8) X10*3/uL RBC (4.60-5.80) X10*6/uL Hgb (14.0-18.0) g/dl Hct (42.0-52.0) % MCV (80.0-98.0) fL MCH (27.0-33.0) pg MCHC (31.0-36.0) g/dl RDW (11.0-16.0) % Plt Count (160-400) X10*3/uL MPV (9.4-12.4) fL Immature Gran % (Auto) (0.0-0.4) % Neut % (Auto) (45-73) % Lymph % (Auto) (20-40) % [place] % (Auto) (2-11) % Eos % (Auto) (0-4) % Baso % (Auto) (0-2) % Lymph # (Auto) (1.2-4.9) X10*3/uL [place] # (Auto) (0.1-1.2) X10*3/uL Eos # (Auto) (0.0-0.4) X10*3/uL Baso # (Auto) (0.0-0.2) X10*3/uL Abs Immat Gran (auto) (0.00-0.03) X10*3/uL Absolute Neuts (auto) (2.0-8.3) x10*3/uL Absolute Nucleated RBC (0.0-0.012) X10*3/uL Nucleated RBC % (auto) (0.0-0.2) /100WBC ESR (0-15) MM/HR Sodium (135-145) mmol/L Potassium (3.3-5.1) mmol/L Chloride (96-108) mmol/L Carbon Dioxide (22-29) mmol/L Anion Gap (12-20) BUN (9-16) mg/dL Creatinine (0.5-1.4) mg/dL Estim Creat Clear Calc Estimated GFR Random Glucose (60-115) mg/dL Lactic Acid (0.5-2.0) mmol/L Lactic Acid F/U @ 2Hr (0.5-2.0) mmol/L Calcium (8.4-10.2) mg/dL Total Bilirubin (0.0-1.0) mg/dL AST (5-37) U/L ALT (0-40) U/L Alkaline Phosphatase Cancelled (39-117) U/L C-Reactive Protein 3.24 H (< or = 0.50) mg/dL B-Natriuretic Peptide (<100) pg/mL Total Protein 7.2 Cancelled (6.5-8.0) g/dL Albumin 3.2 L Cancelled (3.5-5.0) g/dL 06/27/25 06/27/25 Range/Units 14:12 17:11 WBC 7.0 (4.8-10.8) X10*3/uL RBC 3.76 L (4.60-5.80) X10*6/uL Hgb 9.4 L (14.0-18.0) g/dl Hct 30.6 L (42.0-52.0) % MCV 81.4 (80.0-98.0) fL MCH 25.0 L (27.0-33.0) pg MCHC 30.7 L (31.0-36.0) g/dl RDW 17.1 H (11.0-16.0) % Plt Count 317 (160-400) X10*3/uL MPV 9.8 (9.4-12.4) fL Immature Gran % (Auto) 0.3 (0.0-0.4) % Neut % (Auto) 70.3 (45-73) % Lymph % (Auto) 15.5 L (20-40) % [place] % (Auto) 10.9 (2-11) % Eos % (Auto) 2.4 (0-4) % Baso % (Auto) 0.6 (0-2) % Lymph # (Auto) 1.1 L (1.2-4.9) X10*3/uL [place] # (Auto) 0.8 (0.1-1.2) X10*3/uL Eos # (Auto) 0.2 (0.0-0.4) X10*3/uL Baso # (Auto) 0.0 (0.0-0.2) X10*3/uL Abs Immat Gran (auto) 0.02 (0.00-0.03) X10*3/uL Absolute Neuts (auto) 4.9 (2.0-8.3) x10*3/uL Absolute Nucleated RBC 0.000 (0.0-0.012) X10*3/uL Nucleated RBC % (auto) 0.0 (0.0-0.2) /100WBC ESR (0-15) MM/HR Sodium (135-145) mmol/L Potassium (3.3-5.1) mmol/L Chloride (96-108) mmol/L Carbon Dioxide (22-29) mmol/L Anion Gap (12-20) BUN (9-16) mg/dL Creatinine (0.5-1.4) mg/dL Estim Creat Clear Calc Estimated GFR Random Glucose (60-115) mg/dL Lactic Acid 2.3 H* (0.5-2.0) mmol/L Lactic Acid F/U @ 2Hr 1.9 (0.5-2.0) mmol/L Calcium (8.4-10.2) mg/dL Total Bilirubin (0.0-1.0) mg/dL AST (5-37) U/L ALT (0-40) U/L Alkaline Phosphatase (39-117) U/L C-Reactive Protein (< or = 0.50) mg/dL B-Natriuretic Peptide 132 H (<100) pg/mL Total Protein (6.5-8.0) g/dL Albumin (3.5-5.0) g/dL Independent Interpretation I performed an independent interpretation of an: Plain X-Ray Radiology Impression Discussion of test interpretation with radiology: I have reviewed the radiologist's reading. Independent Historian Clinical information obtained from an independent historian. History obtained from or confirmed by: Other (Patient, son) Prescription Management I considered prescription management with: Pain Medication and Antibiotic Discharge Plan Discharge Clinical Impression: PAD (peripheral artery disease), Chronic wound Patient Disposition: Home, Self-Care Instructions: Peripheral Vascular Disease (ED), Chronic Wounds (ED) Additional Instructions: Recommend follow-up with your interventional vascular surgeon Dr. Franklin as recommended by our surgeon nerve specialist Dr. Alejandra. Return to the ED immediately for any foot pain, pus discharge, foul odor, coldness, numbness, bluish black discoloration, redness, red streaks, fever, chills, chest pain, shortness of breath, pleurisy, or any other concerning symptoms. Dr. Alejandra recommends you to be discharged with antibiotics. Follow up with [facility] Prescriptions: New doxycycline hyclate 100 mg tablet 100 mg PO BID Qty: 14 0RF No Action furosemide 80 mg tablet 80 mg PO BID Qty: 180 1RF isosorbide mononitrate 60 mg tablet extended release 24 hr 60 mg PO DAILY Qty: 90 3RF Praluent Pen 75 mg/mL pen injector 75 mg subcut Q2W Qty: 2 5RF phenytoin sodium extended [Dilantin Extended] 100 mg capsule 200 mg PO BID (DME) blood sugar diagnostic Strip See Rx Instructions Not Applicable TID Qty: 10 Rx Instructions: As directed aspirin [Adult Low Dose Aspirin] 81 mg tablet,delayed release (DR/EC) 81 mg PO DAILY rosuvastatin 40 mg tablet 40 mg PO DAILY (DME) pen needle, diabetic [BD Ultra-Fine Nicole Pen Needle] 32 gauge x 5/32 needle See Rx Instructions .ROUTE .MEDSUPPLY Qty: 150 11RF Rx Instructions: As directed five times a day (DME) pen needle, diabetic [BD Nicole 2nd Gen Pen Needle] 32 gauge x 5/32 needle See Rx Instructions .MEDSUPPLY Qty: 200 10RF Rx Instructions: 5 times a day (DME) lancets [FreeStyle Lancets] 28 gauge misc See Rx Instructions .ROUTE TID Qty: 100 Rx Instructions: As directed Jardiance 25 mg tablet 25 mg PO DAILY metoprolol succinate 100 mg tablet extended release 24 hr 100 mg PO DAILY pregabalin 300 mg capsule 300 mg PO BID Fiasp FlexTouch U-100 Insulin 100 unit/mL (3 mL) insulin pen subcut ezetimibe 10 mg tablet 10 mg PO DAILY cholecalciferol (vitamin D3) [Vitamin D3] 25 mcg (1,000 unit) capsule 25 mcg PO DAILY nitroglycerin 0.4 mg tablet, sublingual 0.4 mg sublingual .COMPLEX PRN Rx Instructions: 0.4 mg sublingually One tab under the tongue every 5 minutes as needed for chest pain up to 3; PRN; Referrals: [facility] Wound [facility] Management [Provider Group] - 2 days Referral Note: Chronic toe wound Clinical Impression: Chronic wound; PAD (peripheral artery disease) Pushpa Ruvalcaba MD [Primary Care Provider, Internal Medicine] - 2 days Referral Note: Peripheral vascular disease. Chronic wound Clinical Impression: Chronic wound; PAD (peripheral artery disease) Interventions: ED Discharge Assessment Last Done: 06/27/25 17:51 Discharge Date/Time: 06/27/25 17:52 Print Language: French
--- OUTSIDE RECORDS SUMMARY | 2025-06-27 14:10 | XMS_ITS | Clinical Summary ---
Author Organization [facility] Address [address] [place] [address] Phone Care Team Providers Care Management Lecturer Name Role Phone Pushpa Ruvalcaba MD Primary [...] [place] Care Teams Management Lecturer Relationship Specialty Start Date End Date Pushpa Ruvalcaba MD [facility] PCP - General 11/09/20
--- OUTSIDE RECORDS SUMMARY | 2025-06-27 14:10 | XMS_ITS | Patient Health Record ---
Author Organization [facility] Address [address] [place] [address] Care Team Providers Care Neon Sign Servicer Name Role Phone Pushpa Ruvalcaba Primary Care Provider UnavailSon Cage Unavailable [phone] Allergies Allergen (clinical drug ingredient) Drug/Non Drug [...] Problem Status W/U Status Risk Notes Problem [id number] Abdominal bloati ng (R14.0) Active confirmed Problem [id number] Gastroesophageal reflux disease without esophagitis (K21.9) Active confirmed Plan Of Treatment Future Test Test Name Order Date COLONOSCOPY 03/14/2013 Insurance Providers Payer Name Payer Address Payer Phone Subscriber Number Group Number Insured Name Patient Relationship to Insured Coverage Start Date Coverage End Date MEDICARE OF [place] [address] [place] [id number] MORALES Self - patient is the insured MEDICAID OF [facility] [address] [place] [id number] MORALES Self - patient is the insured Medical (General) History Medical History History ICD Code GERD-EGD in 12/2001-small HH-no Sanchez's nor sig. esophagitis Tubular adenoma removed in 12/2001 Hyperlipidemia IDDM Seizure disorder Denies AK,CVA,Lung disease,renal disease Decreased hearing in both ears HTN Colonoscopy in04/2013--negative except fo r diverticulosis
--- OUTSIDE RECORDS SUMMARY | 2025-06-27 14:10 | XMS_ITS | Clinical Summary ---
Author Organization [facility] Address [address] [place] [address] Care Team Providers Care Leather Cleaner Name Role Phone Unavailable Primary Care Provider [...] (adult) (1 - 1-dose 75+ series) 01/13/2016 [id number] (2023- season) 2024 021, 02/10/2021 Alcohol and Drug Screen 10/30/2024 Depression Annual Screen 10/30/2024 Imm-Influenza (#1) 2025 09/18/2020 Imm-Pneumococcal 50+ Completed 01/11/2017, 07/12/20 16 Insurance [place] MEDICAID Member Subscriber Plan / Payer (Ef fective 2021-Present) Name:Andres Weinstein Relation to Subscriber:Self Name:Andres Weinstein Payer ID:[id number] Type:Medicaid Address: [address] [id number] MEDICARE - [place]
--- OUTSIDE RECORDS SUMMARY | 2025-06-27 14:10 | XMS_ITS | Patient Health Record ---
Author Organization [facility] Address [address] [facility] [place] [address] Care Team Providers Care Resident Care Supervisor Name Role Phone Pushpa Ruvalcaba Primary Care Provider Unavailab Dulce Cartwright Unavailable [phone] Pushpa Ruvalcaba Unavailable Unavailable Mi Contreras Unavailable [phone] Allergies No Known Allergies Results Component Value [...] Polyneuropathy due to type 2 diabetes mellitus (545542518) Type 2 diabetes mellitus with diabetic polyneuropathy (E11.42) Active confirmed Problem Foot ulcer due to type 2 diabetes mellitus (4906548689874) Type 2 diabetes mellitus with foot ulcer (E11.621) Active confirmed Problem Bilateral atherosclerosis of arteries of lower limbs (disorder) (53669534938825929 ) Atherosclerosis of [place] artery of both lower extremities, with unspecified [...] Ordered Date Performed Result Body Sit e 95959-ADVRFTK NAIL, 6 OR MORE 05/29/2025 N/A 30868-JAMH SKIN LESIONS, 2 TO 4 05/29/2025 N/A Encounters Encounter Location Date Provider Diagnosis [address] [address] 05/29/2025 Dulce Black Type 2 diabetes mellitus with diabetic polyneuropathy E11.42 ; Tinea unguium B35.1 ; Atherosclerosis of [place] artery of both lower extremities, with unspecified presence of clinical manifestation I70.203 ; 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 L97.514 ; 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.514 and Type 2 diabetes mellitus with foot ulcer E11.[address] [address] 04/24/2025 Mi Contreras [address] [address] 05/29/2025 Dulce Laureano Assessments Encounter Date Diagnosis (ICD Code) Assessment Notes Treatment Notes Treatment Clinical Notes Section Notes 05/29/2025 Tinea unguium (ICD-10 - B35.1) 05/29/2025 Type 2 diabetes mellitus with diabetic polyneuropathy (ICD-10 - E11.42) 05/29/2025 Atherosclerosis of [place] artery of both lower extremities, with unspecified [...] Treatment Pending Test Test Name Order Date [id number] NAIL, 6 OR MORE 05/29/2025 51542-UGWY SKIN LESIONS, 2 TO 4 05/29/20 25 Next Appt Details Provider Name:Dulce Laureano , 09/15/2025 10:15:00 AM, [address] [place] [address], [id number], Insurance Providers Payer Name Payer Address Payer Phone Subscriber Number Group Number Insured Name Patient Relationship to Insured Coverage Start Date Coverage End Date [facility] [address] [place] Cost[place] [phone] [id number] Andres Weinstein Self - patient is the insured Medical (General) History Medical History History ICD Code Diabetic High Blood Pressure Seizures Lumbar radiculopathy Congestive heart failure edema CLD
[2025-06-27 14:17] LABS: MANUAL DIFF FLAG NO
[2025-06-27 14:24] LABS: Hematocrit 30.6 % (42.0-52.0); Hemoglobin 9.4 g/dl (14.0-18.0); Imm Gran Abs Auto 0.02 X10*3/uL (0.00-0.03); Imm Gran Pct Auto 0.3 % (0.0-0.4); Lymphocytes Absolute Auto 1.1 X10*3/uL (1.2-4.9); Mean Corpuscular HGB Conc 30.7 g/dl (31.0-36.0); Mean Corpuscular Hemoglobin 25.0 pg (27.0-33.0); Mean Corpuscular Volume 81.4 fL (80.0-98.0); NRBC Abs Auto 0.000 X10*3/uL (0.0-0.012); NRBC Pct Auto 0.0 /100WBC (0.0-0.2); Platelet Count 317 X10*3/uL (160-400); Red Blood Count 3.76 X10*6/uL (4.60-5.80); White Blood Count 7.0 X10*3/uL (4.8-10.8)
[2025-06-27 14:39] LABS: B Type Natriuretic Peptide 132 pg/mL (<100)
[2025-06-27 14:39] LABS: Alanine Aminotransferase 6 U/L (0-40); Albumin Level 3.2 g/dL (3.5-5.0); Alkaline Phosphatase 99 U/L (39-117); Anion Gap 14 (12-20); Aspartate Amino Transferase 28 U/L (5-37); Blood Urea Nitrogen 25 mg/dL (9-16); Calcium 9.0 mg/dL (8.4-10.2); Carbon Dioxide 25 mmol/L (22-29); Chloride 108 mmol/L (96-108); Creatinine Clr Calc Pharmacy 43.7; Estimated Glomerular Filt Rate 52; Potassium 4.5 mmol/L (3.3-5.1); Sodium 142 mmol/L (135-145); Total Protein 7.2 g/dL (6.5-8.0)
--- NOTE | 2025-06-27 15:28 | PC.NURSE ---
Made provider Kali aware of lactic 2.3.
[2025-06-27 16:16] LABS: Reflex Lactate? Lactic Acid Added
[2025-06-27 16:29] VITALS: BP 134/53; PULSE 66; RESP 14; TEMP 36.4; O2SAT 100
--- NOTE | 2025-06-27 16:33 | PC.NURSE ---
Pressure bag applied to fluids, second lactic to be drawn after fluids finish
[2025-06-27 17:22] VITALS: BP 113/75; PULSE 68; RESP 16
[2025-06-27 17:34] LABS: ~Lactic Acid-LAB USE ONLY 1.9 mmol/L (0.5-2.0)
[2025-06-27 17:38] VITALS: BP 132/66; PULSE 65; RESP 18; TEMP 36.9; O2SAT 100
[2025-06-27 17:51] VITALS: BP 132/66; PULSE 65; RESP 18; TEMP 36.9; O2SAT 100
== END 2025-06-27 17:52 | disposition home or self-care (01) ==
PROVIDERS: Physician Assistant; Emergency Provider Emergency Medicine; PCP Internal Medicine
DX: I73.9 Peripheral vascular disease, unspecified (principal); S91.109A Unspecified open wound of unspecified toe(s) without damage to nail, initial encounter; E11.22 Type 2 diabetes mellitus with diabetic chronic kidney disease; I13.0 Hypertensive heart and chronic kidney disease with heart failure and stage 1 through stage 4 chronic kidney disease, or unspecified chronic kidney disease; N18.9 Chronic kidney disease, unspecified; I50.9 Heart failure, unspecified; X58.XXXA Exposure to other specified factors, initial encounter; Y93.9 Activity, unspecified; Y92.9 Unspecified place or not applicable; Y99.9 Unspecified external cause status
CPT/HCPCS: 36415; 73630; 80053; 83605; 83880; 85025; 85652; 86140; 87040; 96360; 99284

== ENCOUNTER → 2025-06-27 13:32 | Outpatient (BNV) | payer OTHER, SELFPAY | PROVIDERS: PCP Internal Medicine; Visit Provider Radiology Diagnostic Radiology | DX: M19.071 Primary osteoarthritis, right ankle and foot (principal) | CPT/HCPCS: 73630 ==

== ENCOUNTER 2025-07-17 13:21 | Outpatient (AMB) | payer OTHER, SELFPAY ==
[2025-07-17 13:23] VITALS: BMI 35.1
--- NOTE | 2025-07-17 13:23 | A.OFFVIS_ITS ---
Vital Signs 07/17/25 13:23 Height 5 ft 5 in Weight 211 lb BMI 35.1 Intake Visit Reasons: COMMUNITY RELATIONS LIAISON/WoundCare Ref for non-healing wounds Intake Note: ED referral/WoundCare referral for Right Great toe and 4th toe non healing ulcer, woundcare 1 x per week and VNA. Started 6 mo ago. Telephone Maintainer Required: No Accompanied by: Son Allergies codeine (CODEINE) Allergy (Unknown, Verified 07/17/25 13:25) UNKNOWN lisinopril Allergy (Unknown, Uncoded 07/17/25 13:25) choking HPI HPI COMMUNITY RELATIONS LIAISON/WoundCare Ref for non-healing wounds: Details: Pleasant 85-year-old gentleman with a medical history significant for seizures diabetes essential hypertension coronary artery disease and CKD presented to the emergency room on 05/07/2025 after loss of consciousness. It was concern of a breakthrough seizure while on phenytoin. Of note he does a significant diabetic history and has been followed by the [facility]. He has nonhealing ulcers of the right great toe and 4th toe. He now presents to us for vascular evaluation [facility] Medical History Mass of buttock Left buttock abscess Epidermal cyst Obesity due to excess calories CHF (congestive heart failure) Hypokalemia Diabetic nephropathy associated with type 2 diabetes mellitus CHF (congestive heart failure) Epilepsy Type 2 diabetes mellitus with hyperglycemia, with long-term current use of insulin Secondary hyperparathyroidism Diabetic neuropathy associated with type 2 diabetes mellitus CAD (coronary artery disease) (HFpEF) heart failure with preserved ejection fraction Hypertension Coronary stent patent BPH (benign prostatic hyperplasia) Dyslipidemia Neuropathy associated with endocrine disorder CKD (chronic kidney disease) Diabetes mellitus, type 2 Surgical History Stented coronary artery Hx of cardiac cath Family History Father Diabetes CVD (cardiovascular disease) Mother Diabetes CVD (cardiovascular disease) Brother Diabetes Son Thyroid disease Lung disease Psoriasis HTN (hypertension) Social History Household Members: Spouse, Family and Children Housing: Apartment Do you presently have visiting nurse or other home services: No Alcohol intake: never Patient Tobacco Use Status: Former Tobacco user Advance Directives Date on File: 05/18/21 service: No Current occupational status: retired Review of Systems Const All systems reviewed & are unremarkable except as noted in HPI and below Reports no additional complaints ENT Reports Normal hearing present Card Denies chest pain, Denies chest pain at rest, Denies chest pain with activity and Denies pedal edema Resp Denies cough GI Denies abdominal pain Musc Denies abnormal gait, Denies muscle cramps and Denies radiating pain into limb Skin/Breast Denies skin ulcer and Denies wounds Neuro Reports Normal hearing present and Denies abnormal gait Psych Reports no additional complaints Physical Exam Vital Signs: BMI result Body Mass Index 35.1 Const General: cooperative, healthy appearing and comfortable Orientation/consciousness: oriented to person, oriented to place and oriented to time HEENT Head: Yes normal to inspection Neck Neck: Yes normal visual inspection Carotids: no bruits Chest Chest palpation & inspection: normal inspection of the chest Resp Effort & Inspection: normal respiratory effort and able to speak in complete sentences Auscultation: clear to auscultation bilaterally, no crackles, no rales, no rhonchi and no wheezes Cardio Other: Bilateral DP signals Rate: regular rate Rhythm: regular rhythm Heart sounds: S1 normal heart sound present and S2 normal heart sound present Bruits: no carotid bruits Peripheral pulses: Peripheral pulses 2+ throughout GI Inspection: Yes normal to inspection Skin Wounds: no wounds Hair: normal Neuro General: oriented to person, oriented to place and oriented to time Cranial nerves: Yes CN's II-XII intact bilaterally and Yes Normal hearing present Cognition (Neuro): normal cognition Motor exam (neuro): 5/5 motor strength present throughout Extrem Other: Right foot dry gangrene of the right great toe and 4th toe General: No clubbing, No cyanosis and No edema Psych Appearance: grossly normal Mental Status: mental status grossly normal Speech and movement: Normal speech and movement present Assessment & Plan Assessment & Plan (1) PAD (peripheral artery disease): Code(s): I73.9 - Peripheral vascular disease, unspecified Category: Medical Plan: In short there is concern of significant peripheral vascular disease on this gentleman. I have taken the liberty of ordering noninvasive arterial testing and we will try to expedite this as soon as possible. Concern here is that he has underlying multiple medical problems. He will follow up with us after testing as soon as possible. We will try to expedite this. Thank you for allowing us to assist in his care. Orders: Orders US arterial duplex LE RT Today I73.9 - Peripheral vascular disease, unspecified Coding Level of Care Code Est Pt Level 4 (58217) Diagnoses PAD (peripheral artery disease) I73.9
--- OUTSIDE RECORDS SUMMARY | 2025-07-17 15:21 | XMS_ITS | Clinical Summary ---
Author Organization [facility] Address [address] [place] [address] Care Team Providers Care Central Processing Technician Name Role Phone Unavailable Primary Care Provider [...] (adult) (1 - 1-dose 75+ series) 01/13/2016 Alcohol and Drug Screen 10/30/2024 Depression Annual Screen 10/30/2024 [id number] (3 - 2024- season) 2025 021, 02/10/2021 Imm-Influenza (#1) 2025 09/18/2020 Imm-Pneumococcal 50+ Completed 01/11/2017, 07/12/20 16 Insurance [place] MEDICAID Member Subscriber Plan / Payer (Ef fective 2021-Present) Name:Andres Weinstein Relation to Subscriber:Self Name:Andres Weinstein Payer ID:[id number] Type:Medicaid Address: [address] [id number] MEDICARE - [place]
--- OUTSIDE RECORDS SUMMARY | 2025-07-17 15:21 | XMS_ITS | Clinical Summary ---
Author Organization [facility] Address [address] [place] [address] Phone Care Team Providers Care Coil Inspector Name Role Phone Pushpa Ruvalcaba MD Primary Care Provider [phone] Allergies Active Allergy Reactions Criticality Noted Date [...] Medicaid [place] Care Teams Coil Inspector Relationship Specialty Start Date End Date Pushpa Ruvalcaba MD [facility] PCP - General 11/09/20
== END 2025-07-17 13:35 | disposition home or self-care (01) ==
LOC: HO.HVS 13:21
PROVIDERS: PCP Internal Medicine; Visit Provider Surgery Vascular Surgery
DX: I73.9 Peripheral vascular disease, unspecified (principal)
CPT/HCPCS: 99214

== ENCOUNTER → 2025-07-17 13:21 | Outpatient (BNVA) | payer OTHER, SELFPAY | PROVIDERS: PCP Internal Medicine; Visit Provider Surgery Vascular Surgery | DX: I73.9 Peripheral vascular disease, unspecified (principal) | CPT/HCPCS: 99212 ==

== ENCOUNTER 2025-07-18 11:47 | Outpatient (REF) | payer OTHER, SELFPAY ==
--- OUTSIDE RECORDS SUMMARY | 2025-05-01 04:30 | XMS_ITS ---
Author Organization [facility] Address [address] [place] [address] Care Team Providers Care Shingles Roofer Name Role Phone Pushpa Ruvalcaba Primary Care Provider Unavailab ainsley Dulce Laureano Unavailable [phone] Pushpa Ruvalcaba Unavailable Unavailable Mi Contreras Unavailable [phone] REASON FOR VISIT no PATTERN CHECKER ppwrk Encounters Encounter Location Date Provider Diagnosis [facility] [address] [place] [address] 05/01/2025 Mi Contreras Plan Of Treatment Next Appt Details Provider Name:Dulce Laureano , 09/15/2025 10:15:00 AM, [address] [place], [address], Progress Notes * Andres WEINSTEIN ADOB:[birth year] (85 yo M)Acc No.[id number]:05/01/2025 Progress Notes Patient: Agatha Andres GRAHAM Provider: Timi Contreras DPM :1940 A ge:85 Y S ex:Male Date:05/01/2025 Address:[address] [place] [address] Pcp:Pushpa Ruvalcaba Subjective: * Chief Complaints: * 1 . no PATTERN CHECKER ppwrk. * Medical History: Objective: * Vitals: Assessment: Plan: * Treatment: * Images: * The named appointment provid er may or may not be the originator of this progress note, and it is not deemed complete until electronically signed by the appointment provider. Sign off status: Pending * Provider: Timi Contreras DPM Date: 05/01/2025 Generated for Bill duque/Carin/Jessica on: 07/18/2025 12:19 PM EDT
--- NOTE | ~2025-07-18 | US_ITS ---
EXAMINATION: US NONINVASIVE ASSESSMENT OF THE RIGHT LOWER EXTREMITY WITH ARTERIAL DUPLEX CLINICAL INFORMATION: Peripheral vascular disease, unspecified. COMPARISON: None available. TECHNIQUE: Duplex Doppler techniques with waveform analysis and measurement of velocities in the right common femoral, profunda femoris, superficial femoral, popliteal and tibial arteries were performed. FINDINGS: Atheromatous Plaque: Calcified plaque noted throughout. RIGHT FEMORAL RUNOFF VELOCITIES: The right common femoral artery measures 86 cm/s and is biphasic. The right profunda femoral artery is 90 cm/s and is biphasic. The right proximal superficial femoral artery measures 100 cm/s and is triphasic. The right mid superficial femoral artery is 123 cm/s and is triphasic. The right distal right superficial femoral artery measures 79 cm/s and is monophasic. The right popliteal velocity measures 118 cm/s and is monophasic. The right posterior tibial artery velocity measures 33 cm/s and is monophasic. The right peroneal artery could not be seen. The right anterior tibial artery velocity measures 46 cm/s and is monophasic. The right dorsalis pedis artery velocity measures 49 cm/s and is monophasic. US/US arterial duplex LE RT IMPRESSION: 1. Abnormal peripheral artery testing right lower extremity. Scattered calcific atherosclerotic disease is present. Monophasic waveforms in the distal right superficial femoral artery, popliteal artery, and calf arteries suggesting significant peripheral vascular disease. Electronically signed by: Paulino Sanchez MD 07/18/2025 02:19 PM EDT
--- OUTSIDE RECORDS SUMMARY | 2025-07-18 12:19 | XMS_ITS | Clinical Summary ---
Author Organization [facility] Address [address] [place] [address] Care Team Providers Care Silk Screen Printing Racker Name Role Phone Unavailable Primary Care Provider [...] Drug Screen 10/30/2024 Depression Annual Screen 10/30/2024 [id number]-[id number]-11 (3 - 2024- season) 2025 021, 02/10/2021 Imm-Influenza (#1) 2025 09/18/2020 Imm-Pneumococcal 50+ Completed 01/11/2017, 07/12/20 16 Insurance [place] MEDICAID Member Subscriber Plan / Payer (Ef fective 2021-Present) Name:Andres Weinstein Relation to Subscriber:Self Name:Andres Weinstein Payer ID:[id number] Type:Medicaid Address: [address] [id number] [place]ARE - [place]
--- OUTSIDE RECORDS SUMMARY | 2025-07-18 12:19 | XMS_ITS | Clinical Summary ---
Author Organization [facility] Address [address] [place] [address] Phone Care Team Providers Care Supervisor Color Paste Mixing Name Role Phone Pushpa Ruvalcaba MD Primary [...] Medicaid [place] Medicare [place] Care Teams Supervisor Color Paste Mixing Relationship Specialty Start Date End Date Pushpa Ruvalcaba MD [facility] PCP - General 11/09/20
--- OUTSIDE RECORDS SUMMARY | 2025-07-18 12:20 | XMS_ITS | Patient Health Record ---
[facility] Address [address] [place] [address] Care Team Providers Care Volleyball Coach Name Role Phone Pushpa Ruvalcaba Primary Care Provider Unavailab Dulce Cartwright Unavailable [phone] Pushpa Ruvalcaba Unavailable Unavailable Mi Contreras Unavailable [phone] Allergies No Known Allergies Results Component Value [...] Polyneuropathy due to type 2 diabetes mellitus (434175978) Type 2 diabetes mellitus with diabetic polyneuropathy (E11.42) Active confirmed Problem Foot ulcer due to type 2 diabetes mellitus (7198051105137) Type 2 diabetes mellitus with foot ulcer (E11.621) Active confirmed Problem Bilateral atherosclerosis of arteries of lower limbs (disorder) (64509019632100564 ) Atherosclerosis of [place] artery of both lower extremities, with unspecified [...] Ordered Date Performed Result Body Sit e 50294-UXBIDWQ NAIL, 6 OR MORE 05/29/2025 N/A 13004-SDFN SKIN LESIONS, 2 TO 4 05/29/2025 N/A Encounters Encounter Location Date Provider Diagnosis [address] [address] 05/29/2025 Dulce Black Type 2 diabetes mellitus with diabetic polyneuropathy E11.42 ; Tinea unguium B35.1 ; Atherosclerosis of [place] artery of both lower extremities, with unspecified presence of clinical manifestation I70.203 ; 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 L97.514 ; 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.514 and Type 2 diabetes mellitus with foot ulcer E11.[address] [address] 04/24/2025 Mi Contreras [address] [address] 05/29/2025 Dulce Laureano Assessments Encounter Date Diagnosis (ICD Code) Assessment Notes Treatment Notes Treatment Clinical Notes Section Notes 05/29/2025 Tinea unguium (ICD-10 - B35.1) 05/29/2025 Type 2 diabetes mellitus with diabetic polyneuropathy (ICD-10 - E11.42) 05/29/2025 Atherosclerosis of [place] artery of both lower extremities, with unspecified [...] Treatment Pending Test Test Name Order Date [id number] NAIL, 6 OR MORE 05/29/2025 52277-WLJX SKIN LESIONS, 2 TO 4 05/29/20 25 Next Appt Details Provider Name:Dulce Laureano , 09/15/2025 10:15:00 AM, [address] [place] [address], [phone], Insurance Providers Payer Name Payer Address Payer Phone Subscriber Number Group Number Insured Name Patient Relationship to Insured Coverage Start Date Coverage End Date [facility] [address] [place] [phone] [id number] Andres Weinstein Self - patient is the insured Medical (General) History Medical History History ICD Code Diabetic High Blood Pressure Seizures Lumbar radiculopathy Congestive heart failure edema CLD
--- OUTSIDE RECORDS SUMMARY | 2025-07-18 12:20 | XMS_ITS | Patient Health Record ---
Author Organization [facility] Address [address] [place] [address] Care Team Providers Care Bump Grader Operator Name Role Phone Pushpa Ruvalcaba Primary Care Provider UnavailSon Cage Unavailable [phone] Allergies Allergen (clinical drug ingredient) Drug/Non Drug [...] Problem Status W/U Status Risk Notes Problem [id number] Abdominal bloati ng (R14.0) Active confirmed Problem [id number] Gastroesophageal reflux disease without esophagitis (K21.9) Active confirmed Plan Of Treatment Future Test Test Name Order Date COLONOSCOPY 03/14/2013 Insurance Providers Payer Name Payer Address Payer Phone Subscriber Number Group Number Insured Name Patient Relationship to Insured Coverage Start Date Coverage End Date MED[place]ARE OF [place] [address] [place] [id number] MORALES Self - patient is the insured MEDICAID OF [facility] [address] [place] [id number] MORALES Self - patient is the insured Medical (General) History Medical History History ICD Code GERD-EGD in 12/2001-small HH-no Sanchez's nor sig. esophagitis Tubular adenoma removed in 12/2001 Hyperlipidemia IDDM Seizure disorder Denies [place],CVA,Lung disease,renal disease Decreased hearing in both ears HTN Colonoscopy in04/2013--negative except fo r diverticulosis
== END 2025-07-18 11:48 | disposition home or self-care (01) ==
LOC: HO.US 11:47
PROVIDERS: PCP Internal Medicine; Visit Provider Surgery Vascular Surgery
DX: I73.9 Peripheral vascular disease, unspecified (principal)
CPT/HCPCS: 93926

== ENCOUNTER → 2025-07-18 11:49 | Outpatient (BNV) | payer OTHER, SELFPAY | PROVIDERS: PCP Internal Medicine; Visit Provider Radiology Diagnostic Radiology | DX: I73.9 Peripheral vascular disease, unspecified (principal) | CPT/HCPCS: 93926 ==

== ENCOUNTER 2025-07-22 10:35 | Outpatient (AMB) | payer OTHER, SELFPAY ==
--- OUTSIDE RECORDS SUMMARY | 2025-05-01 04:30 | XMS_ITS ---
Author Organization [facility] Address [address] [place] [address] Care Team Providers Care Business Continuity Global Director Name Role Phone Pushpa Ruvalcaba Primary Care Provider Unavailab ainsley Dulce Laureano Unavailable [phone] Pushpa Ruvalcaba Unavailable Unavailable Mi Contreras Unavailable [phone] REASON FOR VISIT no CONSULTING SERVICES PROJECT MANAGER ppwrk Encounters Encounter Location Date Provider Diagnosis [address] [address] 05/01/2025 Mi Contreras Plan Of Treatment Next Appt Details Provider Name:Dulce Laureano , 09/15/2025 10:15:00 AM, [address] [place], [address], Progress Notes * Andres WEINSTEIN ADOB:[birth year] (85 yo M)Acc No.[id number]:05/01/2025 Progress Notes Patient: Agatha Andres GRAHAM Provider: Timi Contreras DPM :1940 A ge:85 Y S ex:Male Date:05/01/2025 Address:[address] [place] [address] Pcp:Pushpa Ruvalcaba Subjective: * Chief Complaints: * 1 . no CONSULTING SERVICES PROJECT MANAGER ppwrk. * Medical History: Objective: * Vitals: Assessment: Plan: * Treatment: * Images: * The named appointment provid er may or may not be the originator of this progress note, and it is not deemed complete until electronically signed by the appointment provider. Sign off status: Pending * Provider: Timi Contreras DPM Date: 05/01/2025 Generated for Bill duque/Carin/Jessica on: 07/22/2025 12:57 PM EDT
--- NOTE | 2025-07-22 10:37 | A.OFFVIS_ITS ---
Intake Visit Reasons: Follow Up 07/18 Arterial US Intake Note: Patient presents for follow up arterial. He states he has been unable to sleep for the last three nights due to the pain in his right foot and toes. Accompanied by: Daughter Allergies codeine (CODEINE) Allergy (Unknown, Verified 07/22/25 10:44) UNKNOWN lisinopril Allergy (Unknown, Uncoded 07/17/25 13:25) choking HPI HPI Follow Up 07/18 Arterial US: Details: Pleasant 85-year-old gentleman presents for follow-up regarding nonhealing ulcers. He has a history significant for seizures, diabetes, and essential hypertension. He had been in the emergency room on 05/07/2025 for breakthrough seizure. He has been [facility] by the [facility]. He has nonhealing ulcers of the right great toe and 4th toe. He now presents for follow-up with arterial testing. [facility] Medical History Mass of buttock Left buttock abscess Epidermal cyst Obesity due to excess calories CHF (congestive heart failure) Hypokalemia Diabetic nephropathy associated with type 2 diabetes mellitus CHF (congestive heart failure) Epilepsy Type 2 diabetes mellitus with hyperglycemia, with long-term current use of insulin Secondary hyperparathyroidism Diabetic neuropathy associated with type 2 diabetes mellitus CAD (coronary artery disease) (HFpEF) heart failure with preserved ejection fraction Hypertension Coronary stent patent BPH (benign prostatic hyperplasia) Dyslipidemia Neuropathy associated with endocrine disorder CKD (chronic kidney disease) Diabetes mellitus, type 2 Surgical History Stented coronary artery Hx of cardiac cath Family History Father Diabetes CVD (cardiovascular disease) Mother Diabetes CVD (cardiovascular disease) Brother Diabetes Son Thyroid disease Lung disease Psoriasis HTN (hypertension) Social History Household Members: Spouse, Family and Children Housing: Apartment Do you presently have visiting nurse or other home services: No Alcohol intake: never Patient Tobacco Use Status: Former Tobacco user Advance Directives Date on File: 05/18/21 service: No Current occupational status: retired Review of Systems Const All systems reviewed & are unremarkable except as noted in HPI and below Reports no additional complaints ENT Reports Normal hearing present Card Denies chest pain, Denies chest pain at rest, Denies chest pain with activity and Denies pedal edema Resp Denies cough GI Denies abdominal pain Musc Denies abnormal gait, Denies muscle cramps and Denies radiating pain into limb Skin/Breast Denies skin ulcer and Denies wounds Neuro Reports Normal hearing present and Denies abnormal gait Psych Reports no additional complaints Physical Exam Const General: cooperative, healthy appearing and comfortable Orientation/consciousness: oriented to person, oriented to place and oriented to time HEENT Head: Yes normal to inspection Neck Neck: Yes normal visual inspection Carotids: no bruits Chest Chest palpation & inspection: normal inspection of the chest Resp Effort & Inspection: normal respiratory effort and able to speak in complete sentences Auscultation: clear to auscultation bilaterally, no crackles, no rales, no rhonchi and no wheezes Cardio Rate: regular rate Rhythm: regular rhythm Heart sounds: S1 normal heart sound present and S2 normal heart sound present Bruits: no carotid bruits Peripheral pulses: Peripheral pulses 2+ throughout GI Inspection: Yes normal to inspection Skin Other: Right great toe and 4th toe dry gangrene Wounds: no wounds Hair: normal Neuro General: oriented to person, oriented to place and oriented to time Cranial nerves: Yes CN's II-XII intact bilaterally and Yes Normal hearing present Cognition (Neuro): normal cognition Motor exam (neuro): 5/5 motor strength present throughout Extrem Other: venous exam: No significant superficial varicosities or spider telangiectasias, minimal edema General: No clubbing, No cyanosis and No edema Psych Appearance: grossly normal Mental Status: mental status grossly normal Speech and movement: Normal speech and movement present Results Reviewed Results Reviewed: Noninvasive arterial testing dated 07/18/2025 concerning for SFA disease. Assessment & Plan Assessment & Plan (1) PAD (peripheral artery disease): Code(s): I73.9 - Peripheral vascular disease, unspecified Category: Medical Plan: Patient has nonhealing ulcers. I have discussed the pathophysiology of peripheral vascular disease with the patient. I have also discussed risk factor modification. I have reviewed the patient's arterial testing which reveals right SFA disease. the patient would benefit from a right leg endovascular peripheral angiogram with possible angioplasty, stent, and/or atherectomy. This has been discussed in detail with the patient along with risks, benefits, and complications. This includes but is not limited to bleeding, infection, heart attack, need for emergent surgical repair, limb ischemia, blood vessel damage, bleeding, puncture, kidney injury, bruising, allergic reaction, and skin reaction. The patient demonstrates a clear understanding. We will schedule for the next appropriate time. Thank you for allowing us to assist in this patient's care. Coding Level of Care Code Est Pt Level 4 (67565) Complex EM visit Add On G2211 Diagnoses PAD (peripheral artery disease) I73.9
--- OUTSIDE RECORDS SUMMARY | 2025-07-22 12:57 | XMS_ITS | Patient Health Record ---
[facility] Organization [facility] Address [address] [facility] [place] [place] [address] Care Team Providers Care Automation Lead Name Role Phone Pushpa Ruvalcaba Primary Care Provider Unavailab Dulce Cartwright Unavailable [phone] Pushpa Ruvalcaba Unavailable Unavailable Mi Contreras Unavailable [phone] Allergies No Known Allergies Results Component Value [...] Polyneuropathy due to type 2 diabetes mellitus (389769934) Type 2 diabetes mellitus with diabetic polyneuropathy (E11.42) Active confirmed Problem Foot ulcer due to type 2 diabetes mellitus (2833557390211) Type 2 diabetes mellitus with foot ulcer (E11.621) Active confirmed Problem Bilateral atherosclerosis of arteries of lower limbs (disorder) (11484703108958635 ) Atherosclerosis of [place] artery of both lower extremities, with unspecified [...] Ordered Date Performed Result Body Sit e 36826-HPYHTOD NAIL, 6 OR MORE 05/29/2025 N/A 74300-SXZG SKIN LESIONS, 2 TO 4 05/29/2025 N/A Encounters Encounter Location Date Provider Diagnosis [address] [address] 05/29/2025 Dulce Black Type 2 diabetes mellitus with diabetic polyneuropathy E11.42 ; Tinea unguium B35.1 ; Atherosclerosis of [place] artery of both lower extremities, with unspecified presence of clinical manifestation I70.203 ; 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 L97.514 ; 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.514 and Type 2 diabetes mellitus with foot ulcer E11.[address] [address] 04/24/2025 Mi Contreras [address] [address] 05/29/2025 Dulce Laureano Assessments Encounter Date Diagnosis (ICD Code) Assessment Notes Treatment Notes Treatment Clinical Notes Section Notes 05/29/2025 Tinea unguium (ICD-10 - B35.1) 05/29/2025 Type 2 diabetes mellitus with diabetic polyneuropathy (ICD-10 - E11.42) 05/29/2025 Atherosclerosis of [place] artery of both lower extremities, with unspecified [...] Treatment Pending Test Test Name Order Date 76107-HXRZSRD NAIL, 6 OR MORE 05/29/2025 79881-CVTI SKIN LESIONS, 2 TO 4 05/29/20 25 Next Appt Details Provider Name:Dulce Laureano , 09/15/2025 10:15:00 AM, [address] [place] [address], [phone], Insurance Providers Payer Name Payer Address Payer Phone Subscriber Number Group Number Insured Name Patient Relationship to Insured Coverage Start Date Coverage End Date [facility] [address] [place] [phone] [id number] Andres Weinstein Self - patient is the insured Medical (General) History Medical History History ICD Code Diabetic High Blood Pressure Seizures Lumbar radiculopathy Congestive heart failure edema CLD
--- OUTSIDE RECORDS SUMMARY | 2025-07-22 12:57 | XMS_ITS | Patient Health Record ---
Author Organization [facility] Address [address] [place] [address] Care Team Providers Care Personnel Quality Assurance Auditor Name Role Phone Pushpa Ruvalcaba Primary Care Provider UnavailSon Cage Unavailable [phone] Allergies Allergen (clinical drug ingredient) Drug/Non Drug [...] Problem Status W/U Status Risk Notes Problem [id number] Abdominal bloati ng (R14.0) Active confirmed Problem [id number] Gastroesophageal reflux disease without esophagitis (K21.9) Active confirmed Plan Of Treatment Future Test Test Name Order Date COLONOSCOPY 03/14/2013 Insurance Providers Payer Name Payer Address Payer Phone Subscriber Number Group Number Insured Name Patient Relationship to Insured Coverage Start Date Coverage End Date MEDICARE OF [place] [address] [place] [address] [id number] OMRALES Self - patient is the insured MEDICAID OF [facility] [address] [place] [id number] MORALES Self - patient is the insured Medical (General) History Medical History History ICD Code GERD-EGD in 12/2001-small HH-no Sanchez's nor sig. esophagitis Tubular adenoma removed in 12/2001 Hyperlipidemia IDDM Seizure disorder Denies [place],CVA,Lung disease,renal disease Decreased hearing in both ears HTN Colonoscopy in04/2013--negative except fo r diverticulosis
--- OUTSIDE RECORDS SUMMARY | 2025-07-22 12:57 | XMS_ITS | Clinical Summary ---
Author Organization [facility] Address [address] [place] [address] Phone Care Team Providers Care Director Of Flight Operations Name Role Phone Pushpa Ruvalcaba MD Primary [...] Medicaid [place] Care Teams Director Of Flight Operations Relationship Specialty Start Date End Date Pushpa Ruvalcaba MD [facility] PCP - General 11/09/20
--- OUTSIDE RECORDS SUMMARY | 2025-07-22 12:57 | XMS_ITS | Clinical Summary ---
Author Organization [facility] Address [address] [place] [address] Care Team Providers Care Materials Associate Name Role Phone Unavailable Primary Care Provider [...] Drug Screen 10/30/2024 Depression Annual Screen 10/30/2024 [id number]-[id number] (3 - 2024- season) 2025 021, 02/10/2021 Imm-Influenza (#1) 2025 09/18/2020 Imm-Pneumococcal 50+ Completed 01/11/2017, 07/12/20 16 Insurance [place] MEDICAID Member Subscriber Plan / Payer (Ef fective 2021-Present) Name:Andres Weinstein Relation to Subscriber:Self Name:Andres Weinstein Payer ID:[id number] Type:Medicaid Address: [address] [id number] MEDICARE - [place]
== END 2025-07-22 11:03 | disposition home or self-care (01) ==
LOC: HO.HVS 10:35
PROVIDERS: PCP Internal Medicine; Visit Provider Surgery Vascular Surgery
DX: I73.9 Peripheral vascular disease, unspecified (principal)
CPT/HCPCS: 99214; G2211

== ENCOUNTER → 2025-07-22 10:35 | Outpatient (BNVA) | payer OTHER, SELFPAY | PROVIDERS: PCP Internal Medicine; Visit Provider Surgery Vascular Surgery | DX: E11.51 Type 2 diabetes mellitus with diabetic peripheral angiopathy without gangrene (principal); E11.621 Type 2 diabetes mellitus with foot ulcer; L97.529 Non-pressure chronic ulcer of other part of left foot with unspecified severity; L97.519 Non-pressure chronic ulcer of other part of right foot with unspecified severity | CPT/HCPCS: 99212 ==

== ENCOUNTER 2025-07-23 07:03 | Day surgery (SDC) | payer OTHER, SELFPAY ==
[2025-07-23] VITALS (25 sets, daily range): BP systolic 124–163; BP diastolic 57–82; PULSE 76–89; RESP 13–19; TEMP 36.3–36.9; O2SAT 96–100; BMI 39.7
[2025-07-23 07:50] LABS: MANUAL DIFF FLAG NO
--- NOTE | 2025-07-23 08:04 | PC.NURSE ---
MD MOSQUERA AWARE OF PATIENT TAKING HIS JARDIANCE YESTERDAY. OK TO PROCEEED.
[2025-07-23 08:06] LABS: Anion Gap 10 (12-20); Blood Urea Nitrogen 23 mg/dL (9-16); Calcium 8.8 mg/dL (8.4-10.2); Carbon Dioxide 25 mmol/L (22-29); Chloride 110 mmol/L (96-108); Creatinine Clr Calc Pharmacy 45.6; Estimated Glomerular Filt Rate > 60; Hematocrit 30.7 % (42.0-52.0); Hemoglobin 9.9 g/dl (14.0-18.0); Imm Gran Abs Auto 0.02 X10*3/uL (0.00-0.03); Imm Gran Pct Auto 0.3 % (0.0-0.4); Lymphocytes Absolute Auto 1.2 X10*3/uL (1.2-4.9); Mean Corpuscular HGB Conc 32.2 g/dl (31.0-36.0); Mean Corpuscular Hemoglobin 25.5 pg (27.0-33.0); Mean Corpuscular Volume 79.1 fL (80.0-98.0); NRBC Abs Auto 0.000 X10*3/uL (0.0-0.012); NRBC Pct Auto 0.0 /100WBC (0.0-0.2); Platelet Count 265 X10*3/uL (160-400); Potassium 3.6 mmol/L (3.3-5.1); Red Blood Count 3.88 X10*6/uL (4.60-5.80); Sodium 141 mmol/L (135-145); White Blood Count 7.5 X10*3/uL (4.8-10.8)
[2025-07-23 08:09] LABS: Glucose, Whole Blood 121 mg/dL (60-115)
[2025-07-23] MEDS: Heparin Sodium,Porcine 10,000 UNIT/10 ML VIAL 7000 UNIT IVPUSH (09:59)
--- NOTE | 2025-07-23 11:02 | P.OP_ITS ---
Operative Note Operative Note Date of Service: 07/23/25 Narrative: Angiogram report from [facility] Preoperative diagnosis: Atherosclerosis of right lower extremity with nonhealing ulcer Postoperative diagnosis: Same Procedure: 1. Ultrasound-guided left common femoral access 2. Aortogram with right lower extremity runoff 3. Right peroneal plasty Surgeon:John Marques M.D., FACS, RPVI Hardening Machine Operator:None Anesthesia: Local with moderate conscious sedation. Total intraservice moderate sedation time was 60 minutes. I monitored the patient's level of consciousness and physiologic status continuously throughout the procedure. Specimens:none Drains:none Estimated blood loss: Less than 10 ml Radiation Dose: 152.5 mGy Implant: None Indications: 85-year-old gentleman with history of diabetes and nonhealing right lower extremity ulcers of the great toe and 4th toe. He now presents for endovascular intervention The patient has signed the informed consent after reviewing risks, complications, benefits, and alternatives previously discussed with the patient. The patient was given the opportunity to ask any additional questions or voice any concerns. All questions were answered to the patient's satisfaction. Procedure in detail: Patient was brought to the angiography suite prior to which a time-out was called for patient identification and site verification. Bilateral groins were prepped and draped in the standard surgical fashion. Under ultrasound guidance left common femoral was punctured with micro puncture needle and wire. Subsequently a precision 5 [place] sheath was then placed. Bentson wire was advanced to the level of the aorta. 5 [place] Flush catheter was brought up and parked at the level of the renal arteries. Aortogram was then undertaken. Catheter was brought down to the level of the iliac bifurcation. Iliacs and runoff was performed through the flush catheter that was parked at the bifurcation and a power injection was performed to visualize right l runoff vessels. Subsequently the catheter was then brought in up and over to the right side SFA. We then had to use an 035 glidewire Advantage to traverse the tortuosity and get down into the SFA. Through a trail Blazer catheter we defined the anatomy and we recognized there was below-knee disease. At this time 8000 units of systemic heparin was administered after 5 minutes of circulation time up and over 6 [place] sheath was then placed. Once appropriate position we then exchanged out for an 014 wire this was an advantage wire and we were able to traverse into the peroneal artery. Is the proximal portion that was stenotic and did not have in-line flow. This was plasty did with a 3 x 20 balloon and required multiple insufflations. Once this was accomplished completion angiogram demonstrated good result. Catheter wire sheath was brought back to the ipsilateral side. A 6 [place] CELT closure device was then placed. Patient tolerated the procedure well. Returned to recovery with stable vitals. Interpretation of films: 1. Ultrasound demonstrates appropriate femoral access site. Vessel was patent with minimal stenosis. Needle entry was visualized. Image of ultrasound was saved. 2. Aortogram demonstrates appropriate caliber aorta. Minimal disease. Appropriate take-off of the renals. 3. Iliac images demonstrate no significant disease 4. Right Leg Common femoral artery: No significant disease Profundus Femoris: No significant disease Superficial femoral artery: No significant disease Popliteal artery (p1,p2,p3): Mild disease at the P2 segment Anterior tibial artery: Normal flow good flow all the way down into the foot. Was the dominant runoff Peroneal artery: Mild to moderate stenosis at the proximal 3rd good flow all the way down to the ankle and then feeds via collaterals Posterior tibial artery: Occluded Dorsalis pedis/plantar arch: Incomplete Conclusion: 1. Successful plasty of peroneal artery 2. Anticoagulation status: Will require 6 months of aspirin and Plavix This note is constructed using voice recognition software. While every effort has been made to ensure accuracy, electrician substation errors may have been included. Thank you for allowing me to participate in the care of your patient. Yours sincerely, John Marques MD, FACS, R.P.V.I.
[2025-07-28 12:54] LABS: ACT 252 Celite s (79-173)
[2025-07-28 12:54] LABS: ACT 211 Celite s (79-173)
== END 2025-07-23 12:48 | disposition home or self-care (01) ==
PROVIDERS: PCP Internal Medicine; Visit Provider Surgery Vascular Surgery
DX: E11.51 Type 2 diabetes mellitus with diabetic peripheral angiopathy without gangrene (principal); L97.519 Non-pressure chronic ulcer of other part of right foot with unspecified severity; I70.235 Atherosclerosis of native arteries of right leg with ulceration of other part of foot; E11.40 Type 2 diabetes mellitus with diabetic neuropathy, unspecified; E11.21 Type 2 diabetes mellitus with diabetic nephropathy; E11.65 Type 2 diabetes mellitus with hyperglycemia; I13.0 Hypertensive heart and chronic kidney disease with heart failure and stage 1 through stage 4 chronic kidney disease, or unspecified chronic kidney disease; I50.30 Unspecified diastolic (congestive) heart failure; N18.9 Chronic kidney disease, unspecified; E11.22 Type 2 diabetes mellitus with diabetic chronic kidney disease; M79.674 Pain in right toe(s); M79.671 Pain in right foot; I25.10 Atherosclerotic heart disease of native coronary artery without angina pectoris; Z95.5 Presence of coronary angioplasty implant and graft; E87.6 Hypokalemia; R56.9 Unspecified convulsions; E66.09 Other obesity due to excess calories; Z79.620 Long term (current) use of immunosuppressive biologic; Z79.84 Long term (current) use of oral hypoglycemic drugs; Z88.5 Allergy status to narcotic agent; Z88.8 Allergy status to other drugs, medicaments and biological substances; Z87.891 Personal history of nicotine dependence
CPT/HCPCS: 36415; 37228; 76937; 80048; 82947; 85025; 85347; 99152; 99153; C1725; C1760; C1769; C1887; C1894; J1644; J2003; J2250; J3010; Q9967

== ENCOUNTER → 2025-07-23 07:03 | Outpatient (BNV) | payer OTHER, SELFPAY | PROVIDERS: PCP Internal Medicine; Visit Provider Surgery Vascular Surgery | DX: I70.239 Atherosclerosis of native arteries of right leg with ulceration of unspecified site (principal) | CPT/HCPCS: 37224; 75625; 75710; 76937; 99152 ==

== ENCOUNTER 2025-07-29 09:02 | Outpatient (AMB) | payer OTHER, SELFPAY ==
--- OUTSIDE RECORDS SUMMARY | 2025-05-01 04:30 | XMS_ITS ---
Author Organization [facility] Address [address] [place] [address] Care Team Providers Care Hand Hose Cutter Name Role Phone Pushpa Ruvalcaba Primary Care Provider Unavailab ainsley Dulce Laureano Unavailable [phone] Pushpa Ruvalcaba Unavailable Unavailable Mi Contreras Unavailable [phone] REASON FOR VISIT no SUPERVISOR CAP AND HAT PRODUCTION ppwrk Encounters Encounter Location Date Provider Diagnosis [address] [address] 05/01/2025 Mi Contreras Plan Of Treatment Next Appt Details Provider Name:Dulce Laureano , 09/15/2025 10:15:00 AM, [address] [place], [address], Progress Notes * Andres WEINSTEIN ADOB:[birth year] (85 yo M)Acc No.[id number]:05/01/2025 Progress Notes Patient: Agatha Andres GRAHAM Provider: Timi Contreras DPM :1940 A ge:85 Y S ex:Male Date:05/01/2025 Address:[address] [place] [address] Pcp:Pushpa Ruvalcaba Subjective: * Chief Complaints: * 1 . no SUPERVISOR CAP AND HAT PRODUCTION ppwrk. * Medical History: Objective: * Vitals: Assessment: Plan: * Treatment: * Images: * The named appointment provid er may or may not be the originator of this progress note, and it is not deemed complete until electronically signed by the appointment provider. Sign off status: Pending * Provider: Timi Contreras DPM Date: 05/01/2025 Generated for Bill duque/Carin/Jessica on: 07/29/2025 09:40 AM EDT
--- NOTE | 2025-07-29 09:08 | MHC.OFFVIS ---
Intake Visit Reasons: 1 week follow up Angio 07/23/25 Intake Note: Patient presents for 1 week follow up angio performed on 07/23/25. No new complaints, still has pain in right foot/great and fourth toe. Upon removing gauze from toes, there is an odor, bone exposure and drainage. Accompanied by: Daughter Allergies codeine (CODEINE) Adverse Reaction (Severe, Verified 07/29/25 09:09) UNKNOWN lisinopril Allergy (Unknown, Uncoded 07/17/25 13:25) choking HPI HPI 1 week follow up Angio 07/23/25: Details: The patient is an 85-year-old male presenting for follow-up after an angiogram of right lower extremity and to address nonhealing ulcer first and fourth toes. The angiogram was performed last week, and a right peroneal plasty was performed The patient reports significant pain in the first and fourth toes, which has been persistent and is causing distress. The decision has been made to schedule surgery for the removal of the first and fourth toes due to the pain and nonhealing ulcer. [facility] Medical History Mass of buttock Left buttock abscess Epidermal cyst Obesity due to excess calories CHF (congestive heart failure) Hypokalemia Diabetic nephropathy associated with type 2 diabetes mellitus CHF (congestive heart failure) Epilepsy Type 2 diabetes mellitus with hyperglycemia, with long-term current use of insulin Secondary hyperparathyroidism Diabetic neuropathy associated with type 2 diabetes mellitus CAD (coronary artery disease) (HFpEF) heart failure with preserved ejection fraction Hypertension Coronary stent patent BPH (benign prostatic hyperplasia) Dyslipidemia Neuropathy associated with endocrine disorder CKD (chronic kidney disease) Diabetes mellitus, type 2 Surgical History H/O colonoscopy Stented coronary artery Hx of cardiac cath Family History Father Diabetes CVD (cardiovascular disease) Mother Diabetes CVD (cardiovascular disease) Brother Diabetes Son Thyroid disease Lung disease Psoriasis HTN (hypertension) Social History Household Members: Spouse, Family and Children Housing: Apartment Do you presently have visiting nurse or other home services: No Alcohol intake: never Patient Tobacco Use Status: Former Tobacco user Advance Directives Date on File: 05/18/21 service: No Current occupational status: retired Review of Systems Const All systems reviewed & are unremarkable except as noted in HPI and below Reports no additional complaints ENT Reports Normal hearing present Card Denies chest pain, Denies chest pain at rest, Denies chest pain with activity and Denies pedal edema Resp Denies cough GI Denies abdominal pain Musc Denies abnormal gait, Denies muscle cramps and Denies radiating pain into limb Skin/Breast Denies skin ulcer and Denies wounds Neuro Reports Normal hearing present and Denies abnormal gait Psych Reports no additional complaints Physical Exam Const General: cooperative, healthy appearing and comfortable Orientation/consciousness: oriented to person, oriented to place and oriented to time HEENT Head: Yes normal to inspection Neck Neck: Yes normal visual inspection Carotids: no bruits Chest Chest palpation & inspection: normal inspection of the chest Resp Effort & Inspection: normal respiratory effort and able to speak in complete sentences Auscultation: clear to auscultation bilaterally, no crackles, no rales, no rhonchi and no wheezes Cardio Rate: regular rate Rhythm: regular rhythm Heart sounds: S1 normal heart sound present and S2 normal heart sound present Bruits: no carotid bruits Peripheral pulses: Peripheral pulses 2+ throughout GI Inspection: Yes normal to inspection Skin Other: Gangrene of right 1st and 4th toe Wounds: no wounds Hair: normal Neuro General: oriented to person, oriented to place and oriented to time Cranial nerves: Yes CN's II-XII intact bilaterally and Yes Normal hearing present Cognition (Neuro): normal cognition Motor exam (neuro): 5/5 motor strength present throughout Extrem Other: venous exam: No significant superficial varicosities or spider telangiectasias, minimal edema General: No clubbing, No cyanosis and No edema Psych Appearance: grossly normal Mental Status: mental status grossly normal Speech and movement: Normal speech and movement present Assessment & Plan Assessment & Plan (1) PAD (peripheral artery disease): Comment: 07/23/2025 - right peroneal plasty Code(s): I73.9 - Peripheral vascular disease, unspecified Category: Medical Plan: In short patient has nonhealing right lower extremity diabetic foot ulcers. He has gangrene of the right great and 4th toe. He will require right 1st and 4th toe amputation. Risks benefits complications including but not limited to bleeding infection nonhealing and limb loss were discussed in detail with the patient patient's family who was at bedside. They agreed and would like to move forward. Thank you for allowing us to assist in his care. If there are any questions or concerns please do not hesitate to contact us. Coding Level of Care Code Est Pt Level 4 (94350) Diagnoses PAD (peripheral artery disease) I73.9
--- OUTSIDE RECORDS SUMMARY | 2025-07-29 09:40 | XMS_ITS | Clinical Summary ---
Author Organization [facility] Address [address] [place] [address] Phone Care Team Providers Care Preschool Head Teacher Name Role Phone Pushpa Ruvalcaba MD Primary [...] Medicaid [place] Medicare [place] Care Teams Preschool Head Teacher Relationship Specialty Start Date End Date Pushpa Ruvalcaba MD [facility] PCP - General 11/09/20
--- OUTSIDE RECORDS SUMMARY | 2025-07-29 09:40 | XMS_ITS | Clinical Summary ---
Author Organization [facility] Address [address] [place] [address] Care Team Providers Care Complex Care Nurse Name Role Phone Unavailable Primary Care Provider [...] Drug Screen 10/30/2024 Depression Annual Screen 10/30/2024 [id number] (3 - 2024- season) 2025 021, 02/10/2021 Imm-Influenza (#1) 2025 09/18/2020 Imm-Pneumococcal 50+ Completed 01/11/2017, 07/12/20 16 Insurance [place] MEDICAID Member Subscriber Plan / Payer (Ef fective 2021-Present) Name:Andres Weinstein Relation to Subscriber:Self Name:Andres Weinstein Payer ID:[id number] Type:Medicaid Address: [address] [id number] MEDICARE - [place]
--- OUTSIDE RECORDS SUMMARY | 2025-07-29 09:41 | XMS_ITS | Patient Health Record ---
Author Organization [facility] Address [address] [place] [address] Care Team Providers Care Membership Advisor Name Role Phone Pushpa Ruvalcaba Primary Care Provider UnavailSon Cage Unavailable [phone] Allergies Allergen (clinical drug ingredient) Drug/Non Drug [...] Problem Status W/U Status Risk Notes Problem [id number] Abdominal bloati ng (R14.0) Active confirmed Problem 072591683 Gastroesophageal reflux disease without esophagitis (K21.9) Active confirmed Plan Of Treatment Future Test Test Name Order Date COLONOSCOPY 03/14/2013 Insurance Providers Payer Name Payer Address Payer Phone Subscriber Number Group Number Insured Name Patient Relationship to Insured Coverage Start Date Coverage End Date MEDICARE OF [place] [address] [place] [id number] MORALES Self - patient is the insured MEDICAID OF [facility] [address] [place] [id number] MORALES Self - patient is the insured Medical (General) History Medical History History ICD Code GERD-EGD in 12/2001-small HH-no Sanchez's nor sig. 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
--- OUTSIDE RECORDS SUMMARY | 2025-07-29 09:41 | XMS_ITS | Patient Health Record ---
[facility] Address [address] [facility] [place] [address] Care Team Providers Care Administrative Nursing Supervisor Name Role Phone Pushpa Ruvalcaba Primary Care Provider Unavailab Dulce Cartwright Unavailable [phone] Pushpa Ruvalcaba Unavailable Unavailable Mi Contreras Unavailable [phone] Allergies No Known Allergies Results Component Value [...] Polyneuropathy due to type 2 diabetes mellitus (907762445) Type 2 diabetes mellitus with diabetic polyneuropathy (E11.42) Active confirmed Problem Foot ulcer due to type 2 diabetes mellitus (1367646258088) Type 2 diabetes mellitus with foot ulcer (E11.621) Active confirmed Problem Bilateral atherosclerosis of arteries of lower limbs (disorder) (30284998855266059 ) Atherosclerosis of [place] artery of both lower extremities, with unspecified [...] Ordered Date Performed Result Body Sit e 30735-NLPNEZF NAIL, 6 OR MORE 05/29/2025 N/A 77693-DEYH SKIN LESIONS, 2 TO 4 05/29/2025 N/A Encounters Encounter Location Date Provider Diagnosis [address] [address] 05/29/2025 Dulcejosué Laureano Type 2 diabetes mellitus with diabetic polyneuropathy E11.42 ; Tinea unguium B35.1 ; Atherosclerosis of [place] artery of both lower extremities, with unspecified presence of clinical manifestation I70.203 ; 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 L97.514 ; 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.514 and Type 2 diabetes mellitus with foot ulcer E11.[address] [address] 07/22/2025 Dulce Black [address] [address] 04/24/2025 Mi Contreras [facility] [address] [place] [address] 05/29/2025 Dulce Laureano Assessments Encounter Date Diagnosis (ICD Code) Assessment Notes Treatment Notes Treatment Clinical Notes Section Notes 05/29/2025 Tinea unguium (ICD-10 - B35.1) 05/29/2025 Type 2 diabetes mellitus with diabetic polyneuropathy (ICD-10 - E11.42) 05/29/2025 Atherosclerosis of [place] artery of both lower extremities, with unspecified [...] Treatment Pending Test Test Name Order Date [id number]-[id number] NAIL, 6 OR MORE 05/29/2025 75763-TKXN SKIN LESIONS, 2 TO 4 05/29/20 25 Next Appt Details Provider Name:Dulce Laureano , 09/15/2025 10:15:00 AM, [address] [place] [address], [phone], Insurance Providers Payer Name Payer Address Payer Phone Subscriber Number Group Number Insured Name Patient Relationship to Insured Coverage Start Date Coverage End Date [facility] [address] [place] [phone] [id number] Andres Weinstein Self - patient is the insured Medical (General) History Medical History History ICD Code Diabetic High Blood Pressure Seizures Lumbar radiculopathy Congestive heart failure edema CLD
== END 2025-07-29 09:58 | disposition home or self-care (01) ==
LOC: HO.HVS 09:02
PROVIDERS: PCP Internal Medicine; Visit Provider Surgery Vascular Surgery
DX: I73.9 Peripheral vascular disease, unspecified (principal)
CPT/HCPCS: 99214

== ENCOUNTER → 2025-07-29 09:02 | Outpatient (BNVA) | payer OTHER, SELFPAY | PROVIDERS: PCP Internal Medicine; Visit Provider Surgery Vascular Surgery | DX: M79.671 Pain in right foot (principal); I70.261 Atherosclerosis of native arteries of extremities with gangrene, right leg; Z98.890 Other specified postprocedural states | CPT/HCPCS: 99212 ==

== ENCOUNTER → 2025-08-04 10:09 | Outpatient (BNV) | payer OTHER, SELFPAY | PROVIDERS: PCP Internal Medicine; Visit Provider Surgery Vascular Surgery | DX: E11.52 Type 2 diabetes mellitus with diabetic peripheral angiopathy with gangrene (principal); E11.621 Type 2 diabetes mellitus with foot ulcer; L97.518 Non-pressure chronic ulcer of other part of right foot with other specified severity | CPT/HCPCS: 28820; 99232 ==

== ENCOUNTER 2025-08-04 13:01 | Outpatient (BNV) | payer OTHER, SELFPAY | END 2025-08-05 10:10 | PROVIDERS: Admitting Provider Surgery Vascular Surgery; PCP Internal Medicine; Visit Provider Radiology Diagnostic Radiology | DX: R05.9 Cough, unspecified (principal) | CPT/HCPCS: 71045 ==

== ENCOUNTER 2025-08-04 13:01 | Inpatient (IN) | payer OTHER, SELFPAY ==
[2025-07-31 10:56] VITALS: BMI 36.4
--- NOTE | 2025-08-01 09:34 | HO.ANESPROP2 ---
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 Stable at 03/2025 office visit for routine f/u. Anesthesia Pre-Procedure Meds Is the patient on any of the following meds?: SGLT2 Inhib PMFSH Active Problems Active Problems: All Active Problems Chest discomfort (Acute) Urinary urgency (Acute) TIARA (obstructive sleep apnea) (Acute) First degree atrioventricular block (Acute) Type 2 diabetes mellitus with unspecified complications (Acute) Essential hypertension (Acute) Atherosclerotic cardiovascular disease (Acute) Chronic heart failure with preserved ejection fraction (HFpEF) (Acute) Palpitation (Acute) Mass of buttock (Acute) Left buttock abscess (Acute) Epidermal cyst (Acute) Obesity due to excess calories (Acute) Hypokalemia (Acute) BPH (benign prostatic hyperplasia) (Acute) Diabetic nephropathy associated with type 2 diabetes mellitus (Acute) Type 2 diabetes mellitus with hyperglycemia, with long-term current use of insulin (Acute) Dyslipidemia (Acute) Hypertension (Acute) Secondary hyperparathyroidism (Acute) Diabetic neuropathy associated with type 2 diabetes mellitus (Acute) CKD (chronic kidney disease) (Acute) Diabetes mellitus, type 2 (Acute) Stented coronary artery (Acute) CAD (coronary artery disease) (Acute) (HFpEF) heart failure with preserved ejection fraction (Acute) Past Medical History Medical History GERD (gastroesophageal reflux disease) Seizures History of recent vascular procedure (07/23/25) Mass of buttock Left buttock abscess Epidermal cyst Obesity due to excess calories CHF (congestive heart failure) Hypokalemia Diabetic nephropathy associated with type 2 diabetes mellitus CHF (congestive heart failure) Epilepsy Type 2 diabetes mellitus with hyperglycemia, with long-term current use of insulin Secondary hyperparathyroidism Diabetic neuropathy associated with type 2 diabetes mellitus CAD (coronary artery disease) (HFpEF) heart failure with preserved ejection fraction Hypertension Coronary stent patent BPH (benign prostatic hyperplasia) Dyslipidemia Neuropathy associated with endocrine disorder CKD (chronic kidney disease) Diabetes mellitus, type 2 Family History Family History Father Diabetes CVD (cardiovascular disease) Mother Diabetes CVD (cardiovascular disease) Brother Diabetes Son Thyroid disease Lung disease Psoriasis HTN (hypertension) Surgical History Surgical History H/O colonoscopy Stented coronary artery Hx of cardiac cath Social History Social History Household Members: Spouse, Family and Children Housing: Apartment Are you a primary live in caregiver to a significant other at home: No Do you presently have visiting nurse or other home services: No Alcohol intake: never Patient Tobacco Use Status: Former Tobacco user Tobacco use type: Cigarette Smoked in Last 30 Days: No Use of substances other than those prescribed or required for medical reasons: No Are you DNR?: No Advance Directives: No Advance Directives Information Provided: Yes Advance Directives on File: No Advance Directives Date on File: 05/18/21 Poor oral hygiene: No service: No Current occupational status: retired [employer] Allergies Allergy/AdvReac Type Severity Reaction Status Date / Time codeine (CODEINE) AdvReac Severe UNKNOWN Verified 08/04/25 10:55 lisinopril Allergy Intermediate choking Uncoded 07/31/25 11:16 Home Medications ?Medication ?Instructions ?Recorded ?Confirmed ?Last Taken ?Type aspirin 81 mg tablet,delayed 81 mg PO DAILY 08/12/20 07/31/25 07/30/25 History release (Adult Low Dose Aspirin) rosuvastatin 40 mg tablet 40 mg PO DAILY 08/12/20 07/31/25 05/07/24 History blood sugar diagnostic #10 ea 09/15/20 04/17/25 Unknown History lancets 28 gauge (FreeStyle #100 ea 07/20/22 04/17/25 Unknown History Lancets) metoprolol succinate 100 mg 100 mg PO DAILY 03/11/24 07/31/25 08/04/25 06:30 History tablet,extended release 24 hr pregabalin 300 mg capsule 300 mg PO BID 03/11/24 07/31/25 05/07/24 History phenytoin sodium extended 100 mg 200 mg PO BID 05/07/24 07/31/25 08/04/25 06:30 History capsule (Dilantin Extended) empagliflozin 25 mg tablet 25 mg PO DAILY 06/20/24 07/31/25 07/30/25 History (Jardiance) ezetimibe 10 mg tablet 10 mg PO DAILY 12/23/24 07/31/25 Unknown History insulin aspart subcut 12/23/24 04/17/25 Unknown History (niacinamide)(U-100) 100 unit/mL(3 mL) subcutaneous pen (Fiasp FlexTouch U-100 Insulin) nitroglycerin 0.4 mg sublingual 0.4 mg sublingual .COMPLEX PRN 04/17/25 07/31/25 Unknown History tablet Chest Pain pantoprazole 20 mg tablet,delayed 20 mg PO DAILY PRN Acid Reflux 07/31/25 07/31/25 08/04/25 06:30 History release (Protonix) Exam Height,Weight and Vital Signs: Height 5 ft 2 in Weight 90.265 kg Narrative Narrative: EKG 10/2024 Vent. Rate : 67 BPM Atrial Rate : * BPM P-R Int : * ms QRS Dur : 92 ms QT Int : 414 ms P-R-T Axes : * 2 55 degrees QTcB Int : 437 ms Normal sinus rhythm with 1st degree A-V block Otherwise normal ECG When compared with ECG of 12-Jun-2024 04:32, No significant changes seen ECHO 2023 Conclusions: - Normal left ventricular cavity size. There is moderately increased left ventricular wall thickness. The left ventricular systolic function is hyperdynamic. The visually estimated ejection fraction is >70%. - Normal right ventricular cavity size and systolic function. - There is mild dilatation of the ascending aorta measuring 4.00 cm. NM cardiolite stress test 2023 Impression: 1. Normal myocardial perfusion imaging 2. Gated LVEF is 58% 3. Transient ischemic dilatation not present Stress EKG is suggestive of ischemia cath with RONY to LAD 2017, also with ostial nondominant 8% RCA stenosis, distal Cx 70% stenosis.. Repeat cath 05/2019 for unstable angina, NSTEMI shows similar anatomy, patent stent Assessment and Plan Assessment Anesthesia Assessment: Chart Reviewed Documented by User: Moe Bains MD 08/04/25 11:46 [facility] Past Medical History Medical History GERD (gastroesophageal reflux disease) Seizures History of recent vascular procedure (07/23/25) Mass of buttock Left buttock abscess Epidermal cyst Obesity due to excess calories CHF (congestive heart failure) Hypokalemia Diabetic nephropathy associated with type 2 diabetes mellitus CHF (congestive heart failure) Epilepsy Type 2 diabetes mellitus with hyperglycemia, with long-term current use of insulin Secondary hyperparathyroidism Diabetic neuropathy associated with type 2 diabetes mellitus CAD (coronary artery disease) (HFpEF) heart failure with preserved ejection fraction Hypertension Coronary stent patent BPH (benign prostatic hyperplasia) Dyslipidemia Neuropathy associated with endocrine disorder CKD (chronic kidney disease) Diabetes mellitus, type 2 Family History Family History Father Diabetes CVD (cardiovascular disease) Mother Diabetes CVD (cardiovascular disease) Brother Diabetes Son Thyroid disease Lung disease Psoriasis HTN (hypertension) Family history of problems with anesthesia: No Surgical History Surgical History H/O colonoscopy Stented coronary artery Hx of cardiac cath History of Problems with Anesthesia: No Social History Social History Household Members: Spouse, Family and Children Housing: Apartment Are you a primary live in caregiver to a significant other at home: No Do you presently have visiting nurse or other home services: No Alcohol intake: never Patient Tobacco Use Status: Former Tobacco user Tobacco use type: Cigarette Smoked in Last 30 Days: No Use of substances other than those prescribed or required for medical reasons: No Are you DNR?: No Advance Directives: No Advance Directives Information Provided: Yes Advance Directives on File: No Advance Directives Date on File: 05/18/21 Poor oral hygiene: No service: No Current occupational status: retired Meds Allergies Allergy/AdvReac Type Severity Reaction Status Date / Time codeine (CODEINE) AdvReac Severe UNKNOWN Verified 08/04/25 10:55 lisinopril Allergy Intermediate choking Uncoded 07/31/25 11:16 Home Medications ?Medication ?Instructions ?Recorded ?Confirmed ?Last Taken ?Type aspirin 81 mg tablet,delayed 81 mg PO DAILY 08/12/20 07/31/25 07/30/25 History release (Adult Low Dose Aspirin) rosuvastatin 40 mg tablet 40 mg PO DAILY 08/12/20 07/31/25 05/07/24 History blood sugar diagnostic #10 ea 09/15/20 04/17/25 Unknown History lancets 28 gauge (FreeStyle #100 ea 07/20/22 04/17/25 Unknown History Lancets) metoprolol succinate 100 mg 100 mg PO DAILY 03/11/24 07/31/25 08/04/25 06:30 History tablet,extended release 24 hr pregabalin 300 mg capsule 300 mg PO BID 03/11/24 07/31/25 05/07/24 History phenytoin sodium extended 100 mg 200 mg PO BID 05/07/24 07/31/25 08/04/25 06:30 History capsule (Dilantin Extended) empagliflozin 25 mg tablet 25 mg PO DAILY 06/20/24 07/31/25 07/30/25 History (Jardiance) ezetimibe 10 mg tablet 10 mg PO DAILY 12/23/24 07/31/25 Unknown History insulin aspart subcut 12/23/24 04/17/25 Unknown History (niacinamide)(U-100) 100 unit/mL(3 mL) subcutaneous pen (Fiasp FlexTouch U-100 Insulin) nitroglycerin 0.4 mg sublingual 0.4 mg sublingual .COMPLEX PRN 04/17/25 07/31/25 Unknown History tablet Chest Pain pantoprazole 20 mg tablet,delayed 20 mg PO DAILY PRN Acid Reflux 07/31/25 07/31/25 08/04/25 06:30 History release (Protonix) Exam Exam Date and Time: 08/04/25 Airway Mallampati Class: III TM Dist: >3cm Neck ROM: Full Heart: rrr Lungs: rhonchi b/l Assessment and Plan Assessment Anesthesia Assessment: Anesthesia Plan Discussed Final Anesthetic Review Family History of Problems with Anesthesia: No History of Problems with Anesthesia: No NPO: Yes ASA Class: III Final Preanesthetic Review: No Changes in Pt Med Stat, Meds/Allgs Chart Reviewed, Consent Obtained/Reviewed and Anes Risks/Benef Reviewed Patient Risk: Low Procedure Risk: Intermediate Anesthetic Plan Anesthetic Plan: MAC: (pt with productive CHF cough, no constitutional symptoms) Disposition: Standard PACU
[2025-08-04] VITALS (11 sets, daily range): BP systolic 113–149; BP diastolic 60–70; PULSE 74–83; RESP 12–18; TEMP 35.9–37.7; O2SAT 96–100
--- NOTE | ~2025-08-04 | XR_ITS ---
EXAMINATION: XR CHEST CLINICAL INFORMATION: Cough COMPARISON: 06/12/2024. TECHNIQUE: AP view of the chest was obtained. FINDINGS: The cardiac, hilar, and mediastinal contours are normal. The lungs demonstrate mild diffuse prominence of the background bronchovascular markings, suggesting small airway thickening. Lungs otherwise clear. No pneumothorax or effusion. No focal osseous or soft tissue abnormality. XR/XR chest 1V IMPRESSION: Findings suggesting diffuse small airway thickening. No focal abnormal opacity. Electronically signed by: Paulino Sanchez MD 08/05/2025 10:43 AM EDT
--- NOTE | 2025-08-04 07:40 | MHC.SHP ---
Pre-Procedural Eval Section A - 24 Hr Update-Section A only Date of Service: 08/04/25 The patient is an INPATIENT: No Changes since office visit: Yes Patient answered all questions The patient has been examined within 24 hours of the surgical procedure. The History & Physical has been completed within 30 days and I have reviewed it.: Yes Section B - Complete if H&P > 30 days Chief Complaint: Peripheral vascular disease, unspecified Allergies: Allergies Allergy/AdvReac Type Severity Reaction Status Date / Time codeine (CODEINE) AdvReac Severe UNKNOWN Verified 07/29/25 09:09 lisinopril Allergy Intermediate choking Uncoded 07/31/25 11:16 Plan I have reviewed the history and physical and performed a pertinent physical examination on my patient. No changes have occurred unless specified. Time Spent With Patient Time: Total time managing care of this patient today ____ minutes.
[2025-08-04 11:21] LABS: Hematocrit 30.4 % (42.0-52.0); Hemoglobin 9.4 g/dl (14.0-18.0); Mean Corpuscular HGB Conc 30.9 g/dl (31.0-36.0); Mean Corpuscular Hemoglobin 24.7 pg (27.0-33.0); Mean Corpuscular Volume 80.0 fL (80.0-98.0); NRBC Abs Auto 0.000 X10*3/uL (0.0-0.012); NRBC Pct Auto 0.0 /100WBC (0.0-0.2); Platelet Count 388 X10*3/uL (160-400); Red Blood Count 3.80 X10*6/uL (4.60-5.80); White Blood Count 8.6 X10*3/uL (4.8-10.8)
[2025-08-04 11:27] LABS: Glucose, Whole Blood 129 mg/dL (60-115)
[2025-08-04 11:37] LABS: Anion Gap 10 (12-20); Blood Urea Nitrogen 17 mg/dL (9-16); Calcium 8.6 mg/dL (8.4-10.2); Carbon Dioxide 24 mmol/L (22-29); Chloride 105 mmol/L (96-108); Creatinine Clr Calc Pharmacy 52.5; Estimated Glomerular Filt Rate > 60; Potassium 3.3 mmol/L (3.3-5.1); Sodium 136 mmol/L (135-145)
[2025-08-04] MEDS: Lactated Ringers 1,000 ML 50 ML IVCONT (11:51)
--- NOTE | 2025-08-04 11:53 | PC.NURSE ---
anesthesia made at 1105 aware of expiratory rhonchi, recent cold with occasional white sputum with cough. evaluated by anesthesia and ok'd to proceed with light sedation and a lot of local.
--- NOTE | 2025-08-04 12:51 | W.PM.OPN ---
Operative Note Operative Note Date of Service: 08/04/25 Narrative: Operative note by [facility] Preoperative diagnosis: 1. Diabetic foot ulcer 2. 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 Nuclear Equipment Research Engineer: None Anesthesia: Local with sedation performed by Dr. Bains Specimens: 2 Drains: None Estimated blood loss: 50 mL Indications: 85-year-old gentleman with history of diabetic foot ulcer and gangrene of the great and 4th toe now presents for amputation. Prior to this he had a diagnostic angiogram which demonstrated adequate flow to about the ankle. Significant small-vessel disease. On reconstructible. Due to the pain in the gangrene he now presents for amputation. The patient daughter has signed the informed consent after reviewing risks, complications, benefits, and alternatives previously discussed with the patients daughter. The patient was given the opportunity to ask any additional questions or voice any concerns. All questions were answered to the patient's satisfaction. Procedure in detail: Patient was brought to the operating room prior to which a time-out was called for patient identification site verification. Right foot was prepped and draped in standard surgical fashion. Curvilinear fishmouth incision was carried out over the great and 4th toe. This was taken down to the metatarsal head. Subsequently using electrocautery we got through the soft tissue and removed the great toe and subsequently the 4th toe in its entirety. Once this was all accomplished we irrigated this area with normal saline. Adequate hemostasis was achieved with electrocautery. Deep layer was reapproximated using 2-0 Polysorb skin was closed using 2-0 nylon in a mattress fashion along with skin clips. Xeroform and a sterile dressing were applied. At the end the case sponge instrument counts were correct. Patient tolerated the procedure well. Returned to recovery with stable vitals. This note is constructed using voice recognition software. While every effort has been made to ensure accuracy, slip operator errors may have been included. Thank you for allowing me to participate in the care of your patient. Yours sincerely, John Marques MD, FACS, R.P.V.I.
--- NOTE | 2025-08-04 15:27 | PHA.MEDREC ---
Addendum entered by Ramesh Carlos, PharmD 08/04/25 15:55: MED REC CHECKED BY [facility] Original Note: Pharmacy Consult ? Medication Reconciliation Pharmacy has completed the medication reconciliation. Spoke with pt family at bedside and they have on hand a med list printed from April 2025 they utilized to confirm pt med list and confirmed the pt no loner takes Lisinopril; due to the pt having an allergic reaction to it, he stopped Clopidogel about 4 days ago for the surgery and Loratadine due to not finding relief taking he takes 26 units of Lantus at bedtime and 14 units of Novolog TID, pt takes Praulent every 2 weeks and family confirmed pt got that at the end of last week and family states the pt takes Sertraline as needed now for his mood.
[2025-08-04] MEDS: 0.9 % Sodium Chloride Flush 3 ML SYRINGE IVFLUSH (15:33)
[2025-08-04 16:30] LABS: Glucose, Whole Blood 98 mg/dL (60-115)
[2025-08-04] MEDS: oxyCODONE HCl Immed Release 5 MG TABLET PO (17:20)
[2025-08-04 20:56] LABS: Glucose, Whole Blood 159 mg/dL (60-115)
--- NOTE | 2025-08-04 23:31 | P.CONHOSP_ITS ---
History of Present Illness Data of Consult Service Date: 08/04/25 Requesting physician: John Marques Primary Care Provider: Pushpa Ruvalcaba MD [facility] Reason for consult: medical management Pt is an 85 yo Albanian speaking male with a pmhx significant for type 2 diabetes on insulin, HFpEF, HLD, CAD, TIAAR, epilepsy, CKD, HTN and PAD, s/p right great and 4th toe amputation today. He is currently complaining of pain in his foot, otherwise asymptomatic. No chest pain, shortness of breath, nausea or vomiting. No headache. He has been able to urinate without difficulties. Review of Systems 2 Constitutional: Constitutional: Denies body ache(s), Denies chills, Denies fatigue, Denies fever(s) and Denies headache(s) Eyes: Eyes: Denies change in vision ENT: Denies headache(s), Denies nasal congestion and Denies sore throat Cardiovascular: Cardiovascular: Denies chest pain and Denies dyspnea Respiratory: Respiratory: Denies cough, Denies dyspnea and Denies wheezing Gastrointestinal: Gastrointestinal: Denies abdominal pain, Denies nausea and Denies vomiting Genitourinary: Genitourinary: Denies dysuria and Denies urinary urgency Musculoskeletal: Musculoskeletal: Denies myalgias Integumentary/Breasts: Skin/Breast: Denies rash Neurologic: Denies confusion and Denies headache(s) Psychiatric: Psychiatric: Denies confusion Endocrine: Endocrine: Denies fatigue Hematologic/Lymphatic: Hematologic/Lymphatic: Denies easy bleeding and Denies easy bruising Allergic/Immunologic: Allergic/Immunologic: Denies wheezing [facility] Medical History GERD (gastroesophageal reflux disease) Seizures History of recent vascular procedure (07/23/25) Mass of buttock Left buttock abscess Epidermal cyst Obesity due to excess calories CHF (congestive heart failure) Hypokalemia Diabetic nephropathy associated with type 2 diabetes mellitus CHF (congestive heart failure) Epilepsy Type 2 diabetes mellitus with hyperglycemia, with long-term current use of insulin Secondary hyperparathyroidism Diabetic neuropathy associated with type 2 diabetes mellitus CAD (coronary artery disease) (HFpEF) heart failure with preserved ejection fraction Hypertension Coronary stent patent BPH (benign prostatic hyperplasia) Dyslipidemia Neuropathy associated with endocrine disorder CKD (chronic kidney disease) Diabetes mellitus, type 2 Family History Father Diabetes CVD (cardiovascular disease) Mother Diabetes CVD (cardiovascular disease) Brother Diabetes Son Thyroid disease Lung disease Psoriasis HTN (hypertension) Surgical History H/O colonoscopy Stented coronary artery Hx of cardiac cath Social History Household Members: Family Housing: Apartment Are you a primary medicare specialist to a significant other at home: No Do you presently have visiting nurse or other home services: Yes Alcohol intake: never Patient Tobacco Use Status: Former Tobacco user Tobacco use type: Cigarette Smoked in Last 30 Days: No Use of substances other than those prescribed or required for medical reasons: No Currently Displaying Signs/Symptoms of Drug Intoxication Withdrawal: No Have you been hit, kicked, punched, or otherwise hurt by someone within the past year? If so, by whom?: No Do you feel safe in your current relationship?: Yes Is there a partner from a previous relationship who is making you feel unsafe now?: No Are you made to feel afraid or neglected: No Are you DNR?: No Advance Directives: No Advance Directives Information Provided: Yes Advance Directives on File: No Advance Directives Date on File: 05/18/21 Do you have a plan to hurt others: No Plan Recently lost weight without trying: No Nutrition Risks: No Nutritional Risk Poor oral hygiene: No service: No Current occupational status: retired Meds Allergies Allergy/AdvReac Type Severity Reaction Status Date / Time codeine (CODEINE) AdvReac Severe UNKNOWN Verified 08/04/25 10:55 lisinopril Allergy Intermediate choking Uncoded 07/31/25 11:16 Active Medications: Current Medications Acetaminophen (Acetaminophen 325 Mg Tablet) 650 mg PO Q6H PRN PRN Reason: Pain, Mild 1-3,fever,headache Last Admin: 08/04/25 21:22 Dose: 650 mg Aspirin (Aspirin Enteric Coated 81 Mg Tablet.Dr) 81 mg PO DAILY N[facility]A Atorvastatin Calcium (Atorvastatin Calcium 80 Mg Tablet) 80 mg PO BEDTIME [facility] Calcium Carbonate (Calcium Carbonate 750 Mg Tab.Chew) 750 mg PO Q4H PRN PRN Reason: Heartburn Clopidogrel Bisulfate (Clopidogrel Bisulfate 75 Mg Tablet) 75 mg PO DAILY [facility] Dextrose (Dextrose 50 % 25 Gm/50 Ml Syringe) 25 gm IVPUSH Q15M PRN; Protocol PRN Reason: per Hypoglycemia Standing Ord. Ezetimibe (Ezetimibe 10 Mg Tablet) 10 mg PO DAILY [facility] Empagliflozin (Empagliflozin 25 Mg Tablet) 25 mg PO DAILY [facility] Furosemide (Furosemide 40 Mg Tablet) 80 mg PO BID [facility]AY[facility]; Protocol Last Admin: 08/04/25 21:22 Dose: 80 mg Glucose (Glucose Gel 15 Gm Gel..Gram.) 15 gm PO Q15M PRN; Protocol PRN Reason: per Hypoglycemia Standing Ord. Heparin Sodium (Porcine) (Heparin Sodium,Porcine 5,000 Unit/Ml Vial) 5,000 unit SUBCUT Q8H [facility] Last Admin: 08/04/25 21:26 Dose: 5,000 unit Sodium Chloride (Ns) 1,000 mls @ 80 mls/hr IVCONT .[id number] [facility] Last Admin: 08/04/25 15:37 Dose: 80 mls/hr Insulin Glargine (Insulin Glargine,Hum.Rec.Anlog 100 Unit/Ml 10 Ml Vial) 18 unit SUBCUT BEDTIME [facility] Insulin Human Lispro (Insulin Lispro 100 Unit/Ml 3 Ml Vial) 0 unit SUBCUT QIDACHS [facility]; Protocol Isosorbide Mononitrate (Isosorbide Mononitrate 60 Mg Tab.Er.24h) 60 mg PO DAILY [facility]; Protocol Lisinopril (Lisinopril 10 Mg Tablet) 10 mg PO DAILY [facility]; Protocol Magnesium Hydroxide (Milk Of Magnesia 30 Ml Oral.Susp) 30 ml PO DAILY PRN PRN Reason: Constipation Melatonin (Melatonin 3 Mg Tablet) 6 mg PO BEDTIME PRN PRN Reason: Insomnia Last Admin: 08/04/25 21:22 Dose: 6 mg Metoprolol Succinate (Metoprolol Succinate Er 100 Mg Tab.Er.24h) 100 mg PO DAILY [facility]; Protocol Morphine Sulfate (Morphine Sulfate 2 Mg/Ml Cartridge) 2 mg IVPUSH Q4H PRN; Protocol PRN Reason: Pain, Severe (Pain Scale 7-10) Last Admin: 08/04/25 15:33 Dose: 2 mg Nitroglycerin (Nitroglycerin 0.4 Mg Tab.Subl) 0.4 mg SUBLINGUAL Q5MX3 PRN PRN Reason: Chest Pain Non-Formulary Medication (Alirocumab [Praluent Pen]) 75 mg SUBCUT Q14D [facility] Oxycodone HCl (Oxycodone Hcl Immed Release 5 Mg Tablet) 5 mg PO Q4H PRN PRN Reason: Pain, Moderate(Pain Scale 4-6) Last Admin: 08/04/25 17:20 Dose: 5 mg Pantoprazole Sodium (Pantoprazole Sodium 20 Mg Tablet.Dr) 20 mg PO DAILY@0600 [facility] Last Admin: 08/04/25 17:18 Dose: 20 mg Phenytoin Sodium (Phenytoin Sodium Extended 100 Mg Capsule) 200 mg PO BID [facility] Last Admin: 08/04/25 21:23 Dose: 200 mg Pregabalin (Pregabalin 150 Mg Capsule) 300 mg PO BID [facility] Last Admin: 08/04/25 21:23 Dose: 300 mg Sodium Chloride (0.9 % Sodium Chloride Flush 3 Ml Syringe) 3 ml IVFLUSH QSHIFT [facility] Last Admin: 08/04/25 21:23 Dose: Not Given Vitamin D (Cholecalciferol (Vitamin D3) 25 Mcg Tablet) 25 mcg PO DAILY [facility] Home Medications ?Medication ?Instructions ?Recorded ?Confirmed ?Last Taken ?Type aspirin 81 mg tablet,delayed 81 mg PO DAILY 08/12/20 1 08/03/25 History release (Adult Low Dose Aspirin) rosuvastatin 40 mg tablet 40 mg PO DAILY 08/12/2004/2308/03/25 History blood sugar diagnostic #10 ea 09/15/20 04/17/25 Unk nown History lancets 28 gauge (FreeStyle #100 ea 07/20/22 04/17/25 Unknown History Lancets) metoprolol succinate 100 mg 100 mg PO DAILY 03/11/24 1 08/04/25 History tablet,extended release 24 hr pregabalin 300 mg capsule 300 mg PO BID 03/11/2408/0408/04/25 History phenytoin sodium extended 100 mg 200 mg PO BID 4 08/04/25 08/04/25 History capsule (Dilantin Extended) empagliflozin 25 mg tablet 25 mg PO DAILY 06/20/2404/2308/03/25 History (Jardiance) ezetimibe 10 mg tablet 10 mg PO DAILY 12/23/2404/2308/03/25 History pantoprazole 20 mg tablet,delayed 20 mg PO DAILY@0630 07/31/25 08/04/25 08/03/25 History release (Protonix) insulin aspart U-100 100 unit/mL 14 unit subcut TID 08/04/25 08/03/25 History (3 mL) subcutaneous pen (Novolog FlexPen U-100 Insulin aspart) insulin glargine 100 unit/mL (3 26 unit subcut BEDTIME 08/04/25 08/04/25 08/03/25 History mL) subcutaneous pen (Lantus Solostar U-100 Insulin) sertraline 25 mg tablet 25 mg PO DAILY PRN mood 04/2308/04/25 Unknown History tamsulosin 0.4 mg capsule 0.4 mg PO DAILY 08/04/2504/2308/03/25 History Physical Exam 2 Vital Signs and Narrative: Vital Signs: Last Vital Signs Temp 99.9 F 08/04/25 19:53 Pulse 83 08/04/25 19:53 Resp 18 08/04/25 19:53 BP 138/65 08/04/25 19:53 Pulse Ox 96 08/04/25 19:53 O2 Del Method Room Air 08/04/25 19:53 BMI result Body Mass Index 36.4 General: AOx3, appears uncomfotable, pointing to foot Resp: CTA bilaterally CVS: S1, S2, RRR GI: +BS, NT, no distention Skin: Warm, dry Neuro: Cranial nerves II-XII grossly intact bilaterally. Motor grossly intact bilaterally Extremities: No pitting edema. sensation intact BLE. soft compartments. Psych: Appropriate affect Const: General: No confusion Orientation/consciousness: No confusion Neuro: General: No confusion Results Labs 08/04/25 10:51 08/04/25 10:51 Labs: Laboratory Results - last 24 hr 08/04/25 08/04/25 08/04/25 10:51 11:19 16:11 MCV 80.0 MCH 24.7 L MCHC 30.9 L RDW 16.3 H Plt Count 388 D MPV 9.8 Absolute Nucleated RBC 0.000 Nucleated RBC % (auto) 0.0 Anion Gap 10 L Estim Creat Clear Calc 52.5 Estimated GFR > 60 POC Glucose 129 H 98 Random Glucose 116 H Calcium 8.6 08/04/25 20:43 MCV MCH MCHC RDW Plt Count MPV Absolute Nucleated RBC Nucleated RBC % (auto) Anion Gap Estim Creat Clear Calc Estimated GFR POC Glucose 159 H Random Glucose Calcium Assessment and Plan (1) Status post amputation of right great toe: Status: Acute (2) Status post amputation of toe of right foot: Status: Acute Plan Pt is an 85 yo Albanian speaking male with a pmhx significant for type 2 diabetes on insulin, HFpEF, HLD, CAD, TIARA, epilepsy, CKD, HTN and PAD, s/p right great and 4th toe amputation today. s/p R great and 4th toe - POD 0 - plan per vascular surgery T2DM - sliding scale insulin - lantus reduced dose 18U QHS, restart tomorrow once more PO intake HFpEF, no acute exacerbation - lasix HLD - alirocumab abd ezetimibe CAD, PAD - ASA, plavix, isosorbide TIARA - no CPAP epilepsy - phenytoin CKD - avoid nephrotoxins when possible HTN - metoprolol Thank you for allowing me to participate in the pt's care. Will follow for now. Please contact the medical team if any questions or concerns.
[2025-08-05] MEDS: oxyCODONE HCl Immed Release 5 MG TABLET PO ×2 (03:10→08:15)
[2025-08-05 04:00] VITALS: BP 135/64; PULSE 83; RESP 18; TEMP 36.5; O2SAT 97
[2025-08-05 05:58] LABS: MANUAL DIFF FLAG NO
[2025-08-05 06:03] LABS: Hematocrit 29.2 % (42.0-52.0); Hemoglobin 9.1 g/dl (14.0-18.0); Imm Gran Abs Auto 0.03 X10*3/uL (0.00-0.03); Imm Gran Pct Auto 0.4 % (0.0-0.4); Lymphocytes Absolute Auto 0.8 X10*3/uL (1.2-4.9); Mean Corpuscular HGB Conc 31.2 g/dl (31.0-36.0); Mean Corpuscular Hemoglobin 24.5 pg (27.0-33.0); Mean Corpuscular Volume 78.7 fL (80.0-98.0); NRBC Abs Auto 0.000 X10*3/uL (0.0-0.012); NRBC Pct Auto 0.0 /100WBC (0.0-0.2); Platelet Count 376 X10*3/uL (160-400); Red Blood Count 3.71 X10*6/uL (4.60-5.80); White Blood Count 7.8 X10*3/uL (4.8-10.8)
[2025-08-05 06:19] LABS: Anion Gap 11 (12-20); Blood Urea Nitrogen 20 mg/dL (9-16); Calcium 8.3 mg/dL (8.4-10.2); Carbon Dioxide 27 mmol/L (22-29); Chloride 107 mmol/L (96-108); Creatinine Clr Calc Pharmacy 51.5; Estimated Glomerular Filt Rate > 60; Potassium 3.1 mmol/L (3.3-5.1); Sodium 142 mmol/L (135-145)
[2025-08-05 07:31] VITALS: BP 156/68; PULSE 86; RESP 18; TEMP 36.4; O2SAT 94
[2025-08-05 07:42] LABS: Glucose, Whole Blood 106 mg/dL (60-115)
[2025-08-05] MEDS: Potassium Chloride Packet 20 MEQ PACKET PO (08:15)
[2025-08-05] MEDS: Metoprolol Succinate ER 100 MG TAB.ER.24H PO (08:15)
[2025-08-05] MEDS: Aspirin Enteric Coated 81 MG TABLET.DR PO (08:15)
--- NOTE | 2025-08-05 08:15 | HO.PM.IMPN ---
Subjective Subjective Date of Service: 08/05/25 Interval History: Patient is seen and examined, assisted by Faroese american sign language interpreter. He continues to report pain in his foot otherwise feeling well. Urinating without issues, tolerating diet. Patient with frequent cough, vitals are stable no hypoxia. Tolerating diet no nausea vomiting or diarrhea reported. Seen by surgery plan to change the dressing tomorrow. Review of Systems Denies any shortness of breath, chest pain, headaches, dysuria, abdominal pain or discomfort, nausea, vomiting or diarrhea. Reports pain in his foot. Physical Exam Exam: Exam: CONST: Alert and oriented, in NAD. Well nourished HEENT: Normocephalic, atraumatic, MMM RESP: Lungs clear, RRR even and regular. + cough HEART:,RRR, S1, S2. No edema GI:Abdomen Soft NT, ND. + BS times four :Deferred SKIN: Warm dry and intact, no visible lesions or rashes NEURO:CN II-XII Intact bilaterally, Sensation intact. Speech clear PSYCH: Normal affect Vital Signs: Vital Signs: Last Vital Signs Temp 97.6 F 08/05/25 07:31 Pulse 86 08/05/25 07:31 Resp 18 08/05/25 07:31 BP 156/68 H 08/05/25 07:31 Pulse Ox 94 08/05/25 07:31 O2 Del Method Room Air 08/05/25 07:31 BMI result Body Mass Index 36.4 Objective Data Active Medications Acetaminophen (Acetaminophen 325 Mg Tablet) 650 mg PO Q6H PRN PRN Reason: Pain, Mild 1-3,fever,headache Last Admin: 08/04/25 21:22 Dose: 650 mg Documented By: ANGUS Aspirin (Aspirin Enteric Coated 81 Mg Tablet.) 81 mg PO DAILY [facility] Atorvastatin Calcium (Atorvastatin Calcium 80 Mg Tablet) 80 mg PO BEDTIME [facility] Calcium Carbonate (Calcium Carbonate 750 Mg Tab.Chew) 750 mg PO Q4H PRN PRN Reason: Heartburn Clopidogrel Bisulfate (Clopidogrel Bisulfate 75 Mg Tablet) 75 mg PO DAILY [facility] Dextrose (Dextrose 50 % 25 Gm/50 Ml Syringe) 25 gm IVPUSH Q15M PRN; Protocol PRN Reason: per Hypoglycemia Standing Ord. Ezetimibe (Ezetimibe 10 Mg Tablet) 10 mg PO DAILY [facility] Empagliflozin (Empagliflozin 25 Mg Tablet) 25 mg PO DAILY [facility] Furosemide (Furosemide 40 Mg Tablet) 80 mg PO BID [facility]; Protocol Last Admin: 08/04/25 21:22 Dose: 80 mg Documented By: ANGUS Glucose (Glucose Gel 15 Gm Gel..Gram.) 15 gm PO Q15M PRN; Protocol PRN Reason: per Hypoglycemia Standing Ord. Heparin Sodium (Porcine) (Heparin Sodium,Porcine 5,000 Unit/Ml Vial) 5,000 unit SUBCUT Q8H [facility] Last Admin: 08/05/25 05:25 Dose: 5,000 unit Documented By: ANGUS Sodium Chloride (Ns) 1,000 mls @ 80 mls/hr IVCONT .[id number] [facility] Last Admin: 08/05/25 03:27 Dose: Not Given Documented By: ANGUS Non-Admin Reason: IV Running Insulin Glargine (Insulin Glargine,Hum.Rec.Anlog 100 Unit/Ml 10 Ml Vial) 18 unit SUBCUT BEDTIME [facility] Insulin Human Lispro (Insulin Lispro 100 Unit/Ml 3 Ml Vial) 0 unit SUBCUT QIDACHS [facility]; Protocol Last Admin: 08/05/25 07:47 Dose: Not Given Documented By: VIVIANA Non-Admin Reason: No Insulin Coverage Isosorbide Mononitrate (Isosorbide Mononitrate 60 Mg Tab.Er.24h) 60 mg PO DAILY [facility]; Protocol Lisinopril (Lisinopril 10 Mg Tablet) 10 mg PO DAILY [facility]; Protocol Magnesium Hydroxide (Milk Of Magnesia 30 Ml Oral.Susp) 30 ml PO DAILY PRN PRN Reason: Constipation Melatonin (Melatonin 3 Mg Tablet) 6 mg PO BEDTIME PRN PRN Reason: Insomnia Last Admin: 08/04/25 21:22 Dose: 6 mg Documented By: ANGUS Metoprolol Succinate (Metoprolol Succinate Er 100 Mg Tab.Er.24h) 100 mg PO DAILY [facility]; Protocol Morphine Sulfate (Morphine Sulfate 2 Mg/Ml Cartridge) 2 mg IVPUSH Q4H PRN; Protocol PRN Reason: Pain, Severe (Pain Scale 7-10) Last Admin: 08/05/25 05:32 Dose: 2 mg Documented By: ANGUS Nitroglycerin (Nitroglycerin 0.4 Mg Tab.Subl) 0.4 mg SUBLINGUAL Q5MX3 PRN PRN Reason: Chest Pain Non-Formulary Medication (Alirocumab [Praluent Pen]) 75 mg SUBCUT Q14D [facility] Oxycodone HCl (Oxycodone Hcl Immed Release 5 Mg Tablet) 5 mg PO Q4H PRN PRN Reason: Pain, Moderate(Pain Scale 4-6) Last Admin: 08/05/25 03:10 Dose: 5 mg Documented By: ANGUS Pantoprazole Sodium (Pantoprazole Sodium 20 Mg Tablet.Dr) 20 mg PO DAILY@0600 [facility] Last Admin: 08/05/25 05:24 Dose: 20 mg Documented By: ANGUS Phenytoin Sodium (Phenytoin Sodium Extended 100 Mg Capsule) 200 mg PO BID [facility] Last Admin: 08/04/25 21:23 Dose: 200 mg Documented By: ANGUS Pregabalin (Pregabalin 150 Mg Capsule) 300 mg PO BID [facility] Last Admin: 08/04/25 21:23 Dose: 300 mg Documented By: ANGUS Sodium Chloride (0.9 % Sodium Chloride Flush 3 Ml Syringe) 3 ml IVFLUSH QSHIFT [facility] Last Admin: 08/05/25 07:13 Dose: Not Given Documented By: VIVIANA Non-Admin Reason: IV Running Vitamin D (Cholecalciferol (Vitamin D3) 25 Mcg Tablet) 25 mcg PO DAILY [facility] Labs 08/05/25 05:27 08/05/25 05:27 Labs: Laboratory Results - last 24 hr 08/04/25 08/04/25 08/04/25 10:51 11:19 16:11 MCV 80.0 MCH 24.7 L MCHC 30.9 L RDW 16.3 H Plt Count 388 D MPV 9.8 Immature Gran % (Auto) Neut % (Auto) Lymph % (Auto) Steele % (Auto) Eos % (Auto) Baso % (Auto) Lymph # (Auto) Steele # (Auto) Eos # (Auto) Baso # (Auto) Abs Immat Gran (auto) Absolute Neuts (auto) Absolute Nucleated RBC 0.000 Nucleated RBC % (auto) 0.0 Anion Gap 10 L Estim Creat Clear Calc 52.5 Estimated GFR > 60 POC Glucose 129 H 98 Random Glucose 116 H Calcium 8.6 08/04/25 08/05/25 08/05/25 20:43 05:27 07:32 MCV 78.7 L MCH 24.5 L MCHC 31.2 RDW 16.4 H Plt Count 376 MPV 9.5 Immature Gran % (Auto) 0.4 Neut % (Auto) 74.7 H Lymph % (Auto) 10.8 L Steele % (Auto) 10.3 Eos % (Auto) 3.2 Baso % (Auto) 0.6 Lymph # (Auto) 0.8 L Steele # (Auto) 0.8 Eos # (Auto) 0.3 Baso # (Auto) 0.1 Abs Immat Gran (auto) 0.03 Absolute Neuts (auto) 5.8 Absolute Nucleated RBC 0.000 Nucleated RBC % (auto) 0.0 Anion Gap 11 L Estim Creat Clear Calc 51.5 Estimated GFR > 60 POC Glucose 159 H 106 Random Glucose 122 H Calcium 8.3 L Assessment and Plan (1) Chronic heart failure with preserved ejection fraction (HFpEF): Status: Acute Plan 85 yo Faroese speaking male with a pmhx significant for type 2 diabetes on insulin, HFpEF, HLD, CAD, TIARA, epilepsy, CKD, HTN and PAD, s/p right great and 4th toe amputation today. s/p R great and 4th toe POD 1 Plan per vascular surgery OOB daily, IS Cough Xray negative for PNA, CHF Encourage incentive spirometry Robitussin as needed Mobilize patient T2DM Sliding scale insulin Continue Lantus reduced dose 18U QHS Previous home dose 25 units on DC HFpEF, no acute exacerbation Continue Lasix Fluids stopped. Chest Xray negative HLD Alirocumab abd ezetimibe CAD, PAD ASA, plavix, isosorbide TIARA No CPAP Not hypoxic epilepsy Phenytoin CKD Avoid nephrotoxins when possible HTN Metoprolol Thank you for allowing me to participate in the pt's care. Will follow for now. Please contact the medical team if any questions or concerns. Quality Stroke Does the patient have a stroke diagnosis?: No VTE Prior VTE?: No VTE Risk Level:: Surgical - moderate VTE Device Contraindication: N/A - Device Ordered VTE Drug Contraindication: N/A - Med Ordered
--- NOTE | 2025-08-05 08:33 | HO.POSTANES ---
Post Anesthesia Evaluation Post Anesthesia Evaluation Date of Service: 08/05/25 Vital Signs: Vital Signs Temp Pulse Resp BP Pulse Ox O2 Del Method 08/05/25 07:31 97.6 F 86 18 156/68 H 94 Room Air 08/05/25 04:00 97.7 F 83 18 135/64 97 Room Air Anesthesia: Monitored Mental Status: Awake Pain Control: Satisfactory Nausea/Vomiting: None Hydration: Adequate Anesthesia-Related Issues: No Anes. Related Issues
[2025-08-05] MEDS: guaiFENesin 200 MG/10 ML 10 ML LIQUID PO (09:40)
[2025-08-05 11:39] LABS: Glucose, Whole Blood 174 mg/dL (60-115)
--- NOTE | 2025-08-05 13:16 | HO.VASCPN ---
Subjective Subjective Date of Service: 08/05/25 Patient reports: still having pain Interval history: Complex 85-year-old gentleman status post amputation of right great toe and 4th toe. Continues to report pain throughout. He has pain in the foot along with a productive cough. Now for routine postoperative follow-up. Physical Exam Vital Signs: Vital Signs: Last Vital Signs Temp 97.6 F 08/05/25 07:31 Pulse 86 08/05/25 07:31 Resp 18 08/05/25 07:31 BP 156/68 H 08/05/25 07:31 Pulse Ox 94 08/05/25 07:31 O2 Del Method Room Air 08/05/25 07:31 BMI result Body Mass Index 36.4 Const: General: cooperative, healthy appearing and comfortable Orientation/consciousness: oriented to person, oriented to place and oriented to time HEENT: Head: Yes normal to inspection Neck: Neck: Yes normal visual inspection Carotids: no bruits Chest: Chest palpation & inspection: normal inspection of the chest Resp: Effort & Inspection: normal respiratory effort and able to speak in complete sentences Auscultation: clear to auscultation bilaterally, no crackles, no rales, no rhonchi and no wheezes Cardio: Rate: regular rate Rhythm: regular rhythm Heart sounds: S1 normal heart sound present and S2 normal heart sound present Bruits: no carotid bruits Peripheral pulses: Peripheral pulses 2+ throughout GI: Inspection: Yes normal to inspection Skin: Other: Right foot dressing clean dry intact Wounds: no wounds Hair: normal Neuro: General: oriented to person, oriented to place and oriented to time Cranial nerves: Yes CN's II-XII intact bilaterally and Yes Normal hearing present Cognition (Neuro): normal cognition Motor exam (neuro): 5/5 motor strength present throughout Extrem: Other: venous exam: No significant superficial varicosities or spider telangiectasias, minimal edema General: No clubbing, No cyanosis and No edema Psych: Appearance: grossly normal Mental Status: mental status grossly normal Speech and movement: Normal speech and movement present Progress Note: A&P Assessment and plan (1) Status post amputation of toe of right foot: Status: Acute Assessment and Plan: In short doing well status post toe amp. Of concern is his general underlying medical condition. He has a productive cough pain in the foot. We will plan for dressing change. Continue current medical management. We will start physical therapy today. We will assess overall status tomorrow. May require rehab placement Time Spent With Patient Time: Total time managing care of this patient today ____ minutes. Procedures Date of Service Date of Service: 08/05/25 Quality Stroke Does the patient have a stroke diagnosis?: No VTE Prior VTE?: No VTE Risk Level:: Surgical - moderate VTE Device Contraindication: Procedure Contraindicated VTE Drug Contraindication: N/A - Med Ordered
[2025-08-05 15:22] VITALS: BP 138/63; PULSE 75; RESP 18; TEMP 37.3; O2SAT 96
--- NOTE | 2025-08-05 15:37 | MHC.CM.PN ---
IMM 08/05/25 S/P R GR TOE AMP. LIVES WITH . SON IS CYTOTECHNOLOGIST. DME [employer] [facility]. SON WILL PROVIDE TRANSPORTATION HOME. HCP ON FILE PCP JANET CONWAY
[2025-08-05] MEDS: 0.9 % Sodium Chloride Flush 3 ML SYRINGE IVFLUSH (16:37)
[2025-08-05 17:51] LABS: Glucose, Whole Blood 205 mg/dL (60-115)
[2025-08-05 19:46] VITALS: BP 122/57; PULSE 81; RESP 18; TEMP 37.6; O2SAT 97
[2025-08-05 20:20] LABS: Glucose, Whole Blood 180 mg/dL (60-115)
[2025-08-05] MEDS: Insulin Glargine,Hum.rec.anlog 100 UNIT/ML 10 ML VIAL 18 UNIT SUBCUT (21:52)
[2025-08-06 03:29] VITALS: BP 115/56; PULSE 75; RESP 18; TEMP 36.7; O2SAT 95
[2025-08-06] MEDS: 0.9 % Sodium Chloride Flush 3 ML SYRINGE IVFLUSH (05:47)
[2025-08-06 05:59] VITALS: BP 190/78; PULSE 90; RESP 18; TEMP 37.2; O2SAT 95
[2025-08-06] MEDS: oxyCODONE HCl Immed Release 5 MG TABLET PO ×3 (06:15→14:13)
[2025-08-06] MEDS: Metoprolol Succinate ER 100 MG TAB.ER.24H PO (06:15)
[2025-08-06 06:53] VITALS: BP 155/65; PULSE 94; RESP 15; TEMP 37.2; O2SAT 92
[2025-08-06 07:52] LABS: Glucose, Whole Blood 154 mg/dL (60-115)
--- NOTE | 2025-08-06 08:27 | P.PNIM_ITS ---
Subjective Subjective Date of Service: 08/06/25 Interval History: Patient seen and examined, tolerating diet. Out of bed to chair. Continues with cough, he is afebrile, chest x-ray was negative. Seen by vascular plan to discharge to rehab. Assisted with visit by log getter. Patient was seen by vascular, dressing change. Area well approximated anai intact. Plan for DC to rehab today. Review of Systems Denies any shortness of breath, chest pain, palpitations, dizziness, lightheadedness, headaches, dysuria, abdominal pain or discomfort, nausea, vomiting or diarrhea. Reports occasional cough, denies any fever or chills. Physical Exam 2 Exam: Exam: CONST: Alert and oriented, in NAD. Well nourished HEENT: Normocephalic, atraumatic, MMM, Eyes clear, Neck supple RESP: Lungs clear, RRR even and regular HEART:,RRR, S1, S2. No edema GI:Abdomen Soft NT, ND. + BS times four :Deferred SKIN: Warm dry and intact, no visible lesions or rashes NEURO:CN II-XII Intact bilaterally, Sensation intact. Speech clear PSYCH: Normal affect Vital Signs: Vital Signs: Last Vital Signs Temp 99 F 08/06/25 06:53 Pulse 94 08/06/25 06:53 Resp 15 08/06/25 06:53 BP 155/65 H 08/06/25 06:53 Pulse Ox 92 08/06/25 06:53 O2 Del Method Room Air 08/06/25 06:53 BMI result Body Mass Index 36.4 Objective Data Active Medications Acetaminophen (Acetaminophen 325 Mg Tablet) 650 mg PO Q6H PRN PRN Reason: Pain, Mild 1-3,fever,headache Last Admin: 08/04/25 21:22 Dose: 650 mg Documented By: ANGUS Aspirin (Aspirin Enteric Coated 81 Mg Tablet.) 81 mg PO DAILY [facility] Last Admin: 08/05/25 08:15 Dose: 81 mg Documented By: VIVIANA Atorvastatin Calcium (Atorvastatin Calcium 80 Mg Tablet) 80 mg PO BEDTIME [facility] Last Admin: 08/05/25 21:51 Dose: 80 mg Documented By: ANGUS Calcium Carbonate (Calcium Carbonate 750 Mg Tab.Chew) 750 mg PO Q4H PRN PRN Reason: Heartburn Clopidogrel Bisulfate (Clopidogrel Bisulfate 75 Mg Tablet) 75 mg PO DAILY [facility] Last Admin: 08/05/25 08:15 Dose: 75 mg Documented By: VIVIANA Dextrose (Dextrose 50 % 25 Gm/50 Ml Syringe) 25 gm IVPUSH Q15M PRN; Protocol PRN Reason: per Hypoglycemia Standing Ord. Ezetimibe (Ezetimibe 10 Mg Tablet) 10 mg PO DAILY [facility] Last Admin: 08/05/25 08:15 Dose: 10 mg Documented By: VIVIANA Empagliflozin (Empagliflozin 25 Mg Tablet) 25 mg PO DAILY [facility] Last Admin: 08/05/25 08:15 Dose: 25 mg Documented By: VIVIANA Furosemide (Furosemide 40 Mg Tablet) 80 mg PO BID [facility]; Protocol Last Admin: 08/06/25 06:15 Dose: 80 mg Documented By: JAYME Glucose (Glucose Gel 15 Gm Gel..Gram.) 15 gm PO Q15M PRN; Protocol PRN Reason: per Hypoglycemia Standing Ord. Heparin Sodium (Porcine) (Heparin Sodium,Porcine 5,000 Unit/Ml Vial) 5,000 unit SUBCUT Q8H [facility] Last Admin: 08/06/25 05:39 Dose: 5,000 unit Documented By: ANGUS Insulin Glargine (Insulin Glargine,Hum.Rec.Anlog 100 Unit/Ml 10 Ml Vial) 18 unit SUBCUT BEDTIME [facility] Last Admin: 08/05/25 21:52 Dose: 18 unit Documented By: ANGUS Insulin Human Lispro (Insulin Lispro 100 Unit/Ml 3 Ml Vial) 0 unit SUBCUT QIDACHS [facility]; Protocol Last Admin: 08/05/25 21:51 Dose: 2 unit Documented By: ANGUS Isosorbide Mononitrate (Isosorbide Mononitrate 60 Mg Tab.Er.24h) 60 mg PO DAILY [facility]; Protocol Last Admin: 08/06/25 06:15 Dose: 60 mg Documented By: JAYME Lisinopril (Lisinopril 10 Mg Tablet) 10 mg PO DAILY [facility]; Protocol Last Admin: 08/06/25 06:15 Dose: 10 mg Documented By: JAYME Magnesium Hydroxide (Milk Of Magnesia 30 Ml Oral.Susp) 30 ml PO DAILY PRN PRN Reason: Constipation Melatonin (Melatonin 3 Mg Tablet) 6 mg PO BEDTIME PRN PRN Reason: Insomnia Last Admin: 08/04/25 21:22 Dose: 6 mg Documented By: ANGUS Metoprolol Succinate (Metoprolol Succinate Er 100 Mg Tab.Er.24h) 100 mg PO DAILY [facility]; Protocol Last Admin: 08/06/25 06:15 Dose: 100 mg Documented By: JAYME Morphine Sulfate (Morphine Sulfate 2 Mg/Ml Cartridge) 2 mg IVPUSH Q4H PRN; Protocol PRN Reason: Pain, Severe (Pain Scale 7-10) Last Admin: 08/05/25 05:32 Dose: 2 mg Documented By: ANGUS Nitroglycerin (Nitroglycerin 0.4 Mg Tab.Subl) 0.4 mg SUBLINGUAL Q5MX3 PRN PRN Reason: Chest Pain Non-Formulary Medication (Alirocumab [Praluent Pen]) 75 mg SUBCUT Q14D NAYA Oxycodone HCl (Oxycodone Hcl Immed Release 5 Mg Tablet) 5 mg PO Q4H PRN PRN Reason: Pain, Moderate(Pain Scale 4-6) Last Admin: 08/06/25 06:15 Dose: 5 mg Documented By: JAYME Pantoprazole Sodium (Pantoprazole Sodium 20 Mg Tablet.Dr) 20 mg PO DAILY@0600 [facility] Last Admin: 08/06/25 05:47 Dose: Not Given Documented By: ANGUS Non-Admin Reason: pt too drowsy Phenytoin Sodium (Phenytoin Sodium Extended 100 Mg Capsule) 200 mg PO BID [facility] Last Admin: 08/05/25 21:51 Dose: 200 mg Documented By: ANGUS Pregabalin (Pregabalin 150 Mg Capsule) 300 mg PO BID [facility] Last Admin: 08/05/25 21:50 Dose: 300 mg Documented By: ANGUS Sodium Chloride (0.9 % Sodium Chloride Flush 3 Ml Syringe) 3 ml IVFLUSH QSHIFT [facility] Last Admin: 08/06/25 05:47 Dose: 3 ml Documented By: ANGUS Vitamin D (Cholecalciferol (Vitamin D3) 25 Mcg Tablet) 25 mcg PO DAILY [facility] Last Admin: 08/05/25 08:15 Dose: 25 mcg Documented By: VVIIANA Labs 08/06/25 09:10 08/06/25 09:10 Labs: Laboratory Results - last 24 hr 08/05/25 08/05/25 08/05/25 11:28 16:10 20:10 POC Glucose 174 H 205 H 180 H 08/06/25 07:41 POC Glucose 154 H Assessment and Plan (1) Chronic heart failure with preserved ejection fraction (HFpEF): Status: Acute Plan 85 yo Citizen Of [place] speaking male with a pmhx significant for type 2 diabetes on insulin, HFpEF, HLD, CAD, TIARA, epilepsy, CKD, HTN and PAD, s/p right great and 4th toe amputation today. s/p R great and 4th toe POD 2 Pain management with oxycodone 5 mg q.4 hours OOB daily, IS Plan for DC to rehab Cough Xray negative for PNA, CHF Encourage incentive spirometry UDN as needed, mobilize and IS T2DM Sliding scale insulin Resume home dose of Lantus 25 U QHS HFpEF, no acute exacerbation Continue Lasix 80 BID HLD Alirocumab abd ezetimibe CAD, PAD ASA, plavix, isosorbide TIARA No CPAP Not hypoxic epilepsy Phenytoin CKD Avoid nephrotoxins when possible HTN Metoprolol Thank you for allowing me to participate in patient care. Will sign off. Quality Stroke Does the patient have a stroke diagnosis?: No VTE Prior VTE?: No VTE Risk Level:: Surgical - moderate VTE Device Contraindication: N/A - Device Ordered VTE Drug Contraindication: N/A - Med Ordered
[2025-08-06] MEDS: Aspirin Enteric Coated 81 MG TABLET.DR PO (08:39)
[2025-08-06 09:16] LABS: MANUAL DIFF FLAG NO
[2025-08-06 09:19] LABS: Hematocrit 28.2 % (42.0-52.0); Hemoglobin 9.0 g/dl (14.0-18.0); Imm Gran Abs Auto 0.05 X10*3/uL (0.00-0.03); Imm Gran Pct Auto 0.5 % (0.0-0.4); Lymphocytes Absolute Auto 0.8 X10*3/uL (1.2-4.9); Mean Corpuscular HGB Conc 31.9 g/dl (31.0-36.0); Mean Corpuscular Hemoglobin 25.1 pg (27.0-33.0); Mean Corpuscular Volume 78.8 fL (80.0-98.0); NRBC Abs Auto 0.000 X10*3/uL (0.0-0.012); NRBC Pct Auto 0.0 /100WBC (0.0-0.2); Platelet Count 371 X10*3/uL (160-400); Red Blood Count 3.58 X10*6/uL (4.60-5.80); White Blood Count 9.2 X10*3/uL (4.8-10.8)
[2025-08-06 09:32] LABS: Anion Gap 11 (12-20); Blood Urea Nitrogen 24 mg/dL (9-16); Calcium 8.6 mg/dL (8.4-10.2); Carbon Dioxide 29 mmol/L (22-29); Chloride 107 mmol/L (96-108); Creatinine Clr Calc Pharmacy 42.1; Estimated Glomerular Filt Rate 54; Potassium 3.5 mmol/L (3.3-5.1); Sodium 143 mmol/L (135-145)
--- NOTE | 2025-08-06 10:11 | HO.VASCPN ---
Subjective Subjective Date of Service: 08/06/25 Patient reports: no new complaints and feels better Interval history: Patient seen and examined. Postop day 2 status post right great and 4th toe amputation. He appears to be doing significantly better today. His cough appears to be better controlled. Pain also appears to be better controlled. Daughter who is at bedside did report that he had a better night sleep. He is now for follow-up. Physical Exam Vital Signs: Vital Signs: Last Vital Signs Temp 99 F 08/06/25 06:53 Pulse 94 08/06/25 06:53 Resp 15 08/06/25 06:53 BP 155/65 H 08/06/25 06:53 Pulse Ox 92 08/06/25 06:53 O2 Del Method Room Air 08/06/25 06:53 BMI result Body Mass Index 36.4 Const: General: cooperative, healthy appearing and comfortable Orientation/consciousness: oriented to person, oriented to place and oriented to time HEENT: Head: Yes normal to inspection Neck: Neck: Yes normal visual inspection Carotids: no bruits Chest: Chest palpation & inspection: normal inspection of the chest Resp: Effort & Inspection: normal respiratory effort and able to speak in complete sentences Auscultation: clear to auscultation bilaterally, no crackles, no rales, no rhonchi and no wheezes Cardio: Rate: regular rate Rhythm: regular rhythm Heart sounds: S1 normal heart sound present and S2 normal heart sound present Bruits: no carotid bruits Peripheral pulses: Peripheral pulses 2+ throughout GI: Inspection: Yes normal to inspection Skin: Other: Dressing changed of right foot. Amputation sites appear to be healing well. Wounds: no wounds Hair: normal Neuro: General: oriented to person, oriented to place and oriented to time Cranial nerves: Yes CN's II-XII intact bilaterally and Yes Normal hearing present Cognition (Neuro): normal cognition Motor exam (neuro): 5/5 motor strength present throughout Extrem: Other: venous exam: No significant superficial varicosities or spider telangiectasias, minimal edema General: No clubbing, No cyanosis and No edema Psych: Appearance: grossly normal Mental Status: mental status grossly normal Speech and movement: Normal speech and movement present Progress Note: A&P Assessment and plan (1) Status post amputation of toe of right foot: Status: Acute Assessment and Plan: In short patient is doing extremely well status post toe amputation. We will continue with PT and ambulation as tolerated. He will require rehab which we have contacted social work and they are working on placement. Stable from my perspective for discharge. As soon as placement is available he will be discharged. Thank you for allowing us to assist in his care. Time Spent With Patient Time: Total time managing care of this patient today ____ minutes. Procedures Date of Service Date of Service: 08/06/25 Quality Stroke Does the patient have a stroke diagnosis?: No VTE Prior VTE?: No VTE Risk Level:: Surgical - moderate VTE Device Contraindication: N/A - Device Ordered VTE Drug Contraindication: N/A - Med Ordered
[2025-08-06 11:20] LABS: Glucose, Whole Blood 230 mg/dL (60-115)
--- NOTE | 2025-08-06 13:42 | MHC.CM.PN ---
pt being dcd to [facility] today at 4 pm left message for son
--- NOTE | 2025-08-06 14:11 | P.DS_ITS ---
DS: Providers Provider Date of Service: 08/06/25 Date of admission: 08/04/25 13:01 Date of discharge: 08/06/25 Primary care physician: Pushpa Ruvalcaba MD Consults: 08/04/25 12:59 Consult to Hospitalist Routine Comment: Consulting Provider[place] [facility] Reason For Exam: Diabetes management, CHF DS: Diagnosis Discharge Diagnosis (1) Chronic heart failure with preserved ejection fraction (HFpEF): Status: Acute DS: Summary Hospital Course Hospital Course: patient underwent right great and forth toe amp on Monday08/04/25. Did well postop. Dressing changed today and appears to be healing well. Had PT. Transfer to rehab facility Status at Discharge Overall status at discharge: patient is back to baseline Time Attestation Total time managing care of this patient today: 35 mintues. Discharge Coordination Time (in mins): 35 Quality: Safe Use of Opioids Does Pt have an Active Cancer Diagnosis on the Problem List?: No Quality: Stroke Does the patient have a stroke diagnosis?: No Physical Exam Vital Signs: Vital Signs: Last Vital Signs Temp 99 F 08/06/25 06:53 Pulse 94 08/06/25 06:53 Resp 15 08/06/25 06:53 BP 155/65 H 08/06/25 06:53 Pulse Ox 92 08/06/25 06:53 O2 Del Method Room Air 08/06/25 06:53 BMI result Body Mass Index 36.4 Const: General: cooperative, healthy appearing and no acute distress Orientation/consciousness: oriented to person, oriented to place and oriented to time HEENT: Head: Yes normal to inspection Neck: Carotids: no bruits Chest: Chest palpation & inspection: normal inspection of the chest Resp: Effort & Inspection: normal respiratory effort and able to speak in complete sentences Auscultation: clear to auscultation bilaterally Cardio: Rate: regular rate Heart sounds: S1 normal heart sound present and S2 normal heart sound present GI: Inspection: Yes normal to inspection Skin: Other: amp incision healing well General skin exam: no rashes or lesions noted Wounds: no wounds Neuro: General: oriented to person, oriented to place, oriented to time and CN's II-XI intact bilaterally Extrem: General: Yes normal to inspection, Yes full ROM and Yes no clubbing, cyanosis or edema Psych: Appearance: grossly normal and well kempt Speech and movement: Normal speech and movement present Affect: normal affect DS: Data Data Completed and Pending Completed studies during hospitalization [Text1]: Procedures Insertion of Endotracheal Airway into Trachea, Via Natural or Artificial Opening Endoscopic (05/18/21) Respiratory Ventilation, Less than 24 Consecutive Hours (05/18/21) Pending studies at discharge: Pending at discharge 08/04/25 12:21 Surgical [PTH] Routine Labs on day of discharge: Laboratory Results - last 24 hr 08/05/25 08/05/25 08/06/25 16:10 20:10 07:41 WBC RBC Hgb Hct MCV MCH MCHC RDW Plt Count MPV Immature Gran % (Auto) Neut % (Auto) Lymph % (Auto) [place] % (Auto) Eos % (Auto) Baso % (Auto) Lymph # (Auto) [place] # (Auto) Eos # (Auto) Baso # (Auto) Abs Immat Gran (auto) Absolute Neuts (auto) Absolute Nucleated RBC Nucleated RBC % (auto) Sodium Potassium Chloride Carbon Dioxide Anion Gap BUN Creatinine Estim Creat Clear Calc Estimated GFR POC Glucose 205 H 180 H 154 H Random Glucose Calcium 08/06/25 08/06/25 09:10 11:04 WBC 9.2 RBC 3.58 L Hgb 9.0 L Hct 28.2 L MCV 78.8 L MCH 25.1 L MCHC 31.9 RDW 16.6 H Plt Count 371 MPV 9.3 L Immature Gran % (Auto) 0.5 H Neut % (Auto) 81.2 H Lymph % (Auto) 9.1 L [place] % (Auto) 7.5 Eos % (Auto) 1.3 Baso % (Auto) 0.4 Lymph # (Auto) 0.8 L [place] # (Auto) 0.7 Eos # (Auto) 0.1 Baso # (Auto) 0.0 Abs Immat Gran (auto) 0.05 H Absolute Neuts (auto) 7.5 Absolute Nucleated RBC 0.000 Nucleated RBC % (auto) 0.0 Sodium 143 Potassium 3.5 Chloride 107 Carbon Dioxide 29 Anion Gap 11 L BUN 24 H Creatinine 1.27 Estim Creat Clear Calc 42.1 Estimated GFR 54 POC Glucose 230 H Random Glucose 241 H Calcium 8.6 Discharge Plan Discharge Anticipated Discharge Date/Time: 08/06/25 14:08 Patient Disposition: Xfer Inpatient Rehab Fac Discharge Diagnosis: s/p right great and forth toe amputation Referrals: [facility] [Other] - 1 Week Pushpa Ruvalcaba MD [Primary Care Provider, Internal Medicine] - 1 Week Discharge Medications: New oxycodone 5 mg Tablet 5 mg PO Q4H PRN (Reason: Pain, Moderate(Pain Scale 4-6)) 5 Days Qty: 30 0RF Rx Instructions: Partial Fill upon patient request. Continued furosemide 80 mg tablet 80 mg PO BID Qty: 180 1RF isosorbide mononitrate 60 mg tablet extended release 24 hr 60 mg PO DAILY Qty: 90 3RF Praluent Pen 75 mg/mL pen injector 75 mg subcut Q2W Qty: 2 5RF cholecalciferol (vitamin D3) [Vitamin D3] 25 mcg (1,000 unit) capsule 25 mcg PO DAILY Qty: 90 1RF phenytoin sodium extended [Dilantin Extended] 100 mg capsule 200 mg PO BID clopidogrel [Plavix] 75 mg tablet 75 mg PO DAILY Qty: 90 1RF pantoprazole [Protonix] 20 mg Tablet,Delayed Release (Dr/Ec) 20 mg PO DAILY@0630 tamsulosin 0.4 mg capsule 0.4 mg PO DAILY sertraline 25 mg tablet 25 mg PO DAILY PRN (Reason: mood) insulin glargine [Lantus Solostar U-100 Insulin] 100 unit/mL (3 mL) insulin pen 26 unit subcut BEDTIME insulin aspart U-100 [Novolog FlexPen U-100 Insulin] 100 unit/mL (3 mL) insulin pen 14 unit subcut TID (DME) blood sugar diagnostic Strip See Rx Instructions Not Applicable TID Qty: 10 Rx Instructions: As directed aspirin [Adult Low Dose Aspirin] 81 mg tablet,delayed release (DR/EC) 81 mg PO DAILY rosuvastatin 40 mg tablet 40 mg PO DAILY (DME) pen needle, diabetic [BD Ultra-Fine Nicole Pen Needle] 32 gauge x 5/32 needle See Rx Instructions .ROUTE .MEDSUPPLY Qty: 150 11RF Rx Instructions: As directed five times a day (DME) pen needle, diabetic [BD Nicole 2nd Gen Pen Needle] 32 gauge x 5/32 needle See Rx Instructions .MEDSUPPLY Qty: 200 10RF Rx Instructions: 5 times a day (DME) lancets [FreeStyle Lancets] 28 gauge misc See Rx Instructions .ROUTE TID Qty: 100 Rx Instructions: As directed Jardiance 25 mg tablet 25 mg PO DAILY metoprolol succinate 100 mg tablet extended release 24 hr 100 mg PO DAILY pregabalin 300 mg capsule 300 mg PO BID ezetimibe 10 mg tablet 10 mg PO DAILY Discharge Orders: Discharge Order (Routine); Ordered 08/06/25 Ordered By: John Marques Diet: Advance to usual diet Activity on Discharge: As tolerated Stand Alone Forms: Patient Portal Discharge page Print Language: Tamazight Activity Restrictions/Additional Instructions: Wound care upon discharge: xeroform, 4x4 and Kerlix wrap to be changed daily. Please call Dr. Marques at [phone] for 2 week follow up for suture and staple removal Care Plan Goals: follow amputation site Health Concerns: PAD Plan of Treatment: surveilence follow up of pad and ensure amputation healing Assessment: s/p toe amputation
[2025-08-06 15:51] VITALS: BP 115/55; PULSE 74; RESP 16; TEMP 37.2; O2SAT 97
[2025-08-06 16:37] LABS: Glucose, Whole Blood 139 mg/dL (60-115)
== END 2025-08-06 16:12 | DRG 256 ==
LOC: HO.S3 14:24
PROVIDERS: Nurse Practitioner Family; Admitting Provider Surgery Vascular Surgery; PCP Internal Medicine; Visit Provider Surgery Vascular Surgery
PROC: 0Y6P0Z0 Detachment at Right 1st Toe, Complete, Open Approach (ICD-10-PCS; principal; 2025-08-04 12:20)
DX: E11.52 Type 2 diabetes mellitus with diabetic peripheral angiopathy with gangrene (principal); I13.0 Hypertensive heart and chronic kidney disease with heart failure and stage 1 through stage 4 chronic kidney disease, or unspecified chronic kidney disease; I50.32 Chronic diastolic (congestive) heart failure; I25.10 Atherosclerotic heart disease of native coronary artery without angina pectoris; Z95.5 Presence of coronary angioplasty implant and graft; E11.40 Type 2 diabetes mellitus with diabetic neuropathy, unspecified; G47.33 Obstructive sleep apnea (adult) (pediatric); G40.909 Epilepsy, unspecified, not intractable, without status epilepticus; L97.519 Non-pressure chronic ulcer of other part of right foot with unspecified severity; E78.5 Hyperlipidemia, unspecified; N18.9 Chronic kidney disease, unspecified; E11.22 Type 2 diabetes mellitus with diabetic chronic kidney disease; I70.235 Atherosclerosis of native arteries of right leg with ulceration of other part of foot; Z79.4 Long term (current) use of insulin; Z79.02 Long term (current) use of antithrombotics/antiplatelets; Z79.899 Other long term (current) drug therapy
CPT/HCPCS: 36415; 71045; 80048; 82947; 85025; 85027; 88305; 88311; 97162; J0690; J1644; J2003; J2250; J2270; J2405; J2704; J2795; J3010

== ENCOUNTER → 2025-08-04 13:01 | Outpatient (BNV) | payer OTHER, SELFPAY | PROVIDERS: Admitting Provider Surgery Vascular Surgery; PCP Internal Medicine; Visit Provider Physician Assistant | DX: I50.32 Chronic diastolic (congestive) heart failure (principal) | CPT/HCPCS: 99231 ==

== ENCOUNTER 2025-08-08 15:35 | Emergency (ER) | payer OTHER, SELFPAY ==
--- NOTE | ~2025-08-08 | XR_ITS ---
CLINICAL HISTORY: cough 1 view chest x-ray Comparison: 08/05/2025 Findings: No consolidation or pleural effusion. Heart size is normal. No acute fracture. IMPRESSION: 1. No acute findings. This document has been electronically signed by: Kristina Sharif MD on 08/08/2025 19:04:51
--- NOTE | ~2025-08-08 | CT_ITS ---
CLINICAL HISTORY: lower abdominal pain CT abdomen and pelvis with contrast Comparison: None provided Findings: LIMITED CHEST: Bibasilar atelectasis. LIVER: No focal liver lesion. BILIARY: No gallbladder wall thickening, radiopaque stone, or ductal dilatation. PANCREAS: No mass or ductal dilatation. SPLEEN: No splenomegaly. KIDNEYS: No hydronephrosis or radiopaque stone. Small hypoattenuating lesions, too small to characterize however may represent cysts. ADRENALS: No nodule. VASCULAR: No aneurysm. RETROPERITONEUM: No lymphadenopathy or mass. BOWEL/MESENTERY: Small hiatal hernia. No evidence of obstruction. No free fluid or air. Normal appendix. Colonic diverticulosis. ABDOMINAL WALL: No mass or significant abnormality. URINARY BLADDER: Frond-like debris in the dependent bladder. PELVIC NODES: No pelvic lymphadenopathy. PELVIC ORGANS: Severe prostatomegaly BONES: No acute fracture. OTHER: Negative. IMPRESSION: 1. Normal appendix. Colonic diverticulosis without CT evidence of acute diverticulitis. 2. Severe prostatomegaly. Frond-like debris in the bladder, may represent hemorrhagic material/clot versus mass. Consider evaluation with cystoscopy. This document has been electronically signed by: Kristina Sharif MD on 08/08/2025 20:12:54
[2025-08-08 16:07] VITALS: BP 132/74; BP 144/58; PULSE 93; PULSE 95; RESP 22; TEMP 37.2; O2SAT 95; O2SAT 97; BMI 31.2
[2025-08-08 16:25] VITALS: BP 130/57; PULSE 89; RESP 17; TEMP 37.6; O2SAT 95
--- NOTE | 2025-08-08 17:48 | ED.GENADULT ---
HPI - General Adult General Chief complaint: General Medical Stated complaint: blood clots coming out of groin, abd pain Time Seen by Provider: 08/08/25 16:46 Source: patient, family and frame nailer Mode of arrival: EMS Limitations: language barrier History of Present Illness ED Provider: Mili HPI narrative: 85-year-old male past medical history significant for type 2 diabetes, heart failure with preserved ejection fraction, BPH, hypertension, chronic kidney disease, coronary artery disease presents for evaluation of blood in his urine. The patient was discharged from this facility 2 days ago to a rehab facility. He was admitted due to osteomyelitis of the right toes, he had 2 toe amputations on 08/04/2025. Yesterday the patient has some blood in his urine and today developed more bleeding with clots. This has happened once before due to BPH about 5 years ago. The patient reports some discomfort while urinating but otherwise has no abdominal pain, fevers, chills. No flank pain he is on Plavix but no anticoagulation Related Data Home Medications ?Medication ?Instructions ?Recorded ?Confirmed aspirin 81 mg tablet,delayed 81 mg PO DAILY 08/12/20 08/04/25 release (Adult Low Dose Aspirin) rosuvastatin 40 mg tablet 40 mg PO DAILY 08/12/20 08/04/25 blood sugar diagnostic #10 ea 09/15/20 04/17/25 lancets 28 gauge (FreeStyle #100 ea 07/20/22 04/17/25 Lancets) metoprolol succinate 100 mg 100 mg PO DAILY 03/11/24 08/04/25 tablet,extended release 24 hr pregabalin 300 mg capsule 300 mg PO BID 03/11/24 08/04/25 phenytoin sodium extended 100 mg 200 mg PO BID 05/07/24 08/04/25 capsule (Dilantin Extended) empagliflozin 25 mg tablet 25 mg PO DAILY 06/20/24 08/04/25 (Jardiance) ezetimibe 10 mg tablet 10 mg PO DAILY 12/23/24 08/04/25 pantoprazole 20 mg tablet,delayed 20 mg PO DAILY@0630 07/31/25 08/04/25 release (Protonix) insulin aspart U-100 100 unit/mL 14 unit subcut TID 08/04/25 08/04/25 (3 mL) subcutaneous pen (Novolog FlexPen U-100 Insulin aspart) insulin glargine 100 unit/mL (3 26 unit subcut BEDTIME 08/04/25 08/04/25 mL) subcutaneous pen (Lantus Solostar U-100 Insulin) sertraline 25 mg tablet 25 mg PO DAILY PRN mood 08/04/25 08/04/25 tamsulosin 0.4 mg capsule 0.4 mg PO DAILY 08/04/25 08/04/25 Previous Rx's ?Medication ?Instructions ?Recorded furosemide 80 mg tablet 80 mg PO BID #180 tabs 12/29/20 pen needle, diabetic 32 gauge x #150 ea 02/15/22 (BD Ultra-Fine Nicole Pen Needle) BD Nicole 2nd Gen Pen Needle 32 #200 ea 04/19/22 gauge x (pen needle, diabetic) isosorbide mononitrate 60 mg 60 mg PO DAILY #90 tabs 03/07/25 tablet,extended release 24 hr alirocumab 75 mg/mL subcutaneous 75 mg subcut Q2W #2 mL 04/17/25 pen injector (Praluent Pen) cholecalciferol (vitamin D3) 25 25 mcg PO DAILY #90 caps 07/09/25 mcg (1,000 unit) capsule (Vitamin D3) clopidogrel 75 mg tablet (Plavix) 75 mg PO DAILY #90 tabs 07/23/25 oxycodone 5 mg tablet 5 mg PO Q4H PRN Pain, 08/06/25 Moderate(Pain Scale 4-6) 5 days #30 tabs Allergies Allergy/AdvReac Type Severity Reaction Status Date / Time codeine (CODEINE) AdvReac Severe UNKNOWN Verified 08/08/25 16:09 lisinopril Allergy Intermediate choking Uncoded 08/08/25 16:09 Review of Systems Constitutional: Constitutional: Denies body ache(s), Denies chills, Denies fever(s) and Denies headache(s) Eyes: Eyes: Denies blurry vision ENT: Denies dizziness and Denies headache(s) Cardiovascular: Cardiovascular: Denies chest pain and Denies dyspnea on exertion Respiratory: Respiratory: Denies cough and Denies dyspnea on exertion Gastrointestinal: Gastrointestinal: Denies abdominal pain, Denies nausea and Denies vomiting Genitourinary: Genitourinary: Reports hematuria, Reports dysuria and Reports urinary frequency Musculoskeletal: Musculoskeletal: Denies back pain Integumentary/Breasts: Skin/Breast: Denies rash Neurologic: Denies dizziness and Denies headache(s) [facility] Past Medical History Medical History GERD (gastroesophageal reflux disease) Seizures History of recent vascular procedure (07/23/25) Mass of buttock Left buttock abscess Epidermal cyst Obesity due to excess calories CHF (congestive heart failure) Hypokalemia Diabetic nephropathy associated with type 2 diabetes mellitus CHF (congestive heart failure) Epilepsy Type 2 diabetes mellitus with hyperglycemia, with long-term current use of insulin Secondary hyperparathyroidism Diabetic neuropathy associated with type 2 diabetes mellitus CAD (coronary artery disease) (HFpEF) heart failure with preserved ejection fraction Hypertension Coronary stent patent BPH (benign prostatic hyperplasia) Dyslipidemia Neuropathy associated with endocrine disorder CKD (chronic kidney disease) Diabetes mellitus, type 2 Surgical History H/O colonoscopy Stented coronary artery Hx of cardiac cath Family History Family History Father Diabetes CVD (cardiovascular disease) Mother Diabetes CVD (cardiovascular disease) Brother Diabetes Son Thyroid disease Lung disease Psoriasis HTN (hypertension) Social History Social History Household Members: Family Housing: Apartment Are you a primary managed care liaison to a significant other at home: No Do you presently have visiting nurse or other home services: Yes Alcohol intake: never Patient Tobacco Use Status: Former Tobacco user Tobacco use type: Cigarette Smoked in Last 30 Days: No Use of substances other than those prescribed or required for medical reasons: No Advance Directives: No Advance Directives Information Provided: Yes Advance Directives Date on File: 05/18/21 Do you have a plan to hurt others: No Plan service: No Current occupational status: retired Physical Exam ED Vital Signs: Vital Signs - 24 hr 08/08/25 16:07 08/08/25 16:25 08/08/25 19:39 Temperature 99.0 F 99.7 F 98.9 F Pulse Rate 93 89 97 Respiratory Rate 22 H 17 19 Blood Pressure 144/58 H 130/57 L 130/64 Pulse Oximetry 97 95 96 Oxygen Delivery Method Room Air Room Air Room Air 08/08/25 22:10 08/09/25 00:12 Temperature 99.4 F 98.6 F Pulse Rate 95 84 Respiratory Rate 19 18 Blood Pressure 119/52 L 139/61 Pulse Oximetry 97 98 Oxygen Delivery Method Room Air Room Air BMI result Body Mass Index 31.2 Const General: healthy appearing, comfortable, no acute distress, alert and awake Nutritional Appearance: well nourished Orientation/consciousness: patient oriented x3 HENMT Head: Yes normocephalic and Yes atraumatic Eyes Eyelids: Yes eyelids normal Conjunctivae: conjunctivae normal Sclerae: sclerae normal Corneas: corneas normal Pupils: Equal, round and reactive pupils present EOM: EOMs intact bilaterally Neck Neck: Yes full ROM Resp Effort & Inspection: normal respiratory effort, able to speak in complete sentences and not labored Cardio Rate: regular rate Rhythm: regular rhythm GI Inspection: No distended Palpation (GI): Soft to palpation, not firm, nontender, no guarding and not rigid Skin General skin exam: elasticity normal Neuro General: patient oriented x3 Cranial nerves: Yes Equal, round and reactive pupils present and Yes Bilaterally intact EOM present Cognition (Neuro): normal cognition Extrem Other: Moving all extremities well without any obvious deformities Course Reevaluation(s) Reevaluation #1: Patient's CT scan showed severe prostatomegaly with clot versus mass within the bladder. The patient was incontinent of urine on several occasions, we had attempted a condom catheter to collect the urine which was unsuccessful for a while. Family was very resistant to attempting a catheter to retrieve of the urine. Finally, a bladder scan was performed which showed 687 cc of urine in the bladder. When I went back into recommend the catheter, family finally consented for a Allen catheter but then the patient is able to urinate approximately 600 cc of clear, red urine there was no clots noted. The urinalysis was performed which showed no evidence of infection, there was no bacteria, there were a few white cells which are likely related to the amount of blood that was in the urine. The patient has no white count and no fever. The patient is not in urinary retention and got there were no clots hopefully will not become an main retention. We will send the patient back to his facility with instructions to follow up with Urology. Return precautions were given and we will be written on the discharge papers for the facility Time: 01:07 Medications Administered Discontinued Medications Generic Name Dose Route Start Last Admin Trade Name Bryson PRN Reason Stop Dose Admin Sodium Chloride 1,000 mls @ 999 mls/hr 08/08/25 23:15 08/09/25 00:22 Ns IV 08/09/25 00:15 Infused .Q1H1M NAYA Infusion Iohexol 100 ml 08/08/25 18:13 08/08/25 18:13 Iohexol 350 Mg/Ml 100 Ml Infus..Btl IV 08/08/25 18:14 85 ml ONCE ONE Administration Medical Decision Making Medical Decision Making MDM Narrative: 85-year-old male past medical history as above presents for evaluation of blood in his urine. He is quite well appearing. He was recently here for a surgical procedure. I reviewed the nursing notes and it does not appear that he had a Allen catheter placed for the surgery, so urethral trauma is not likely to be the source of the bleeding. We will check basic labs, urinalysis in his CT scan of the abdomen pelvis. Differential Diagnosis Differential Diagnoses: The differential diagnosis associated with the presentation includes UTI Cystitis Bladder cancer Coagulopathy Bladder mass Obstructive uropathy Lab Data 08/08/25 17:47 08/08/25 17:47 Labs: Lab Results 08/08/25 08/08/25 08/09/25 Range/Units 17:47 18:43 00:43 WBC 9.5 (4.8-10.8) X10*3/uL RBC 3.78 L (4.60-5.80) X10*6/uL Hgb 9.3 L (14.0-18.0) g/dl Hct 29.9 L (42.0-52.0) % MCV 79.1 L (80.0-98.0) fL MCH 24.6 L (27.0-33.0) pg MCHC 31.1 (31.0-36.0) g/dl RDW 16.5 H (11.0-16.0) % Plt Count 429 H (160-400) X10*3/uL MPV 9.6 (9.4-12.4) fL Immature Gran % (Auto) 0.5 H (0.0-0.4) % Neut % (Auto) 79.7 H (45-73) % Lymph % (Auto) 8.9 L (20-40) % [place] % (Auto) 9.0 (2-11) % Eos % (Auto) 1.4 (0-4) % Baso % (Auto) 0.5 (0-2) % Lymph # (Auto) 0.8 L (1.2-4.9) X10*3/uL [place] # (Auto) 0.9 (0.1-1.2) X10*3/uL Eos # (Auto) 0.1 (0.0-0.4) X10*3/uL Baso # (Auto) 0.1 (0.0-0.2) X10*3/uL Abs Immat Gran (auto) 0.05 H (0.00-0.03) X10*3/uL Absolute Neuts (auto) 7.5 (2.0-8.3) x10*3/uL Absolute Nucleated RBC 0.000 (0.0-0.012) X10*3/uL Nucleated RBC % (auto) 0.0 (0.0-0.2) /100WBC Smear Tech's Comments VERIFIED PT 14.1 H (10.9-12.4) SEC INR 1.2 H (0.9-1.1) APTT 27.4 (26.7-34.1) SEC Sodium 141 (135-145) mmol/L Potassium 3.5 (3.3-5.1) mmol/L Chloride 105 (96-108) mmol/L Carbon Dioxide 27 (22-29) mmol/L Anion Gap 13 (12-20) BUN 17 H (9-16) mg/dL Creatinine 1.08 (0.5-1.4) mg/dL Estim Creat Clear Calc 42.5 Estimated GFR > 60 Random Glucose 94 (60-115) mg/dL Calcium 8.5 (8.4-10.2) mg/dL Total Bilirubin 0.2 (0.0-1.0) mg/dL AST 36 (5-37) U/L ALT 11 (0-40) U/L Alkaline Phosphatase 79 (39-117) U/L Total Protein 7.0 (6.5-8.0) g/dL Albumin 2.9 L (3.5-5.0) g/dL Urine Color Red A Urine Appearance Cloudy Urine pH 7.5 (5.0-9.0) Ur Specific [place] >= 1.030 H (1.005-1.025) Urine Protein 30 (1+) H (Neg-Trace) mg/dL Urine Glucose (UA) >=1000 H (Negative) mg/dL Urine Ketones Negative (Negative) mg/dL Urine Blood Large (3+) H (Negative) Urine Nitrite Negative (Negative) Ur Leukocyte Esterase Small (1+) H (Negative) Urine RBC >20 H (0-2) /HPF Urine WBC 6-10 H (0-5) /HPF Ur Squamous Epith Cells 0-2 (0-2) /HPF Urine Bacteria None Seen (None Seen) Hyaline Casts 0-2 (0-2) /LPF COVID-19 (ROMERO) Negative (Negative) COVID-19 Clin Com See Note Influenza Type A (AUDREY) Negative (Negative) Influenza Type B (AUDREY) Negative (Negative) Influenza A & B Note See Note Discharge Plan Discharge Clinical Impression: Hematuria Patient Disposition: Xfer SNF Instructions: Hematuria (ED) Additional Instructions: Andres's CT scan showed a severely enlarged prostate. He has no signs of UTI. His blood counts were stable in his renal function was stable. He is able to safely be discharged back to his nursing facility. He should return to the ER if you develops fevers, severe lower abdominal pain, if he is unable to urinate at all. In the meantime, he needs to follow up with Urology, call Dr. Ruvalcaba's office to schedule follow up as soon as possible. He will benefit from a cystoscopy to evaluate the source of bleeding Prescriptions: No Action furosemide 80 mg tablet 80 mg PO BID Qty: 180 1RF isosorbide mononitrate 60 mg tablet extended release 24 hr 60 mg PO DAILY Qty: 90 3RF Praluent Pen 75 mg/mL pen injector 75 mg subcut Q2W Qty: 2 5RF cholecalciferol (vitamin D3) [Vitamin D3] 25 mcg (1,000 unit) capsule 25 mcg PO DAILY Qty: 90 1RF phenytoin sodium extended [Dilantin Extended] 100 mg capsule 200 mg PO BID clopidogrel [Plavix] 75 mg tablet 75 mg PO DAILY Qty: 90 1RF pantoprazole [Protonix] 20 mg Tablet,Delayed Release (Dr/Ec) 20 mg PO DAILY@0630 tamsulosin 0.4 mg capsule 0.4 mg PO DAILY sertraline 25 mg tablet 25 mg PO DAILY PRN (Reason: mood) insulin glargine [Lantus Solostar U-100 Insulin] 100 unit/mL (3 mL) insulin pen 26 unit subcut BEDTIME insulin aspart U-100 [Novolog FlexPen U-100 Insulin] 100 unit/mL (3 mL) insulin pen 14 unit subcut TID oxycodone 5 mg Tablet 5 mg PO Q4H PRN (Reason: Pain, Moderate(Pain Scale 4-6)) 5 Days Qty: 30 0RF Rx Instructions: Partial Fill upon patient request. (DME) blood sugar diagnostic Strip See Rx Instructions Not Applicable TID Qty: 10 Rx Instructions: As directed aspirin [Adult Low Dose Aspirin] 81 mg tablet,delayed release (DR/EC) 81 mg PO DAILY rosuvastatin 40 mg tablet 40 mg PO DAILY (DME) pen needle, diabetic [BD Ultra-Fine Nicole Pen Needle] 32 gauge x 5/32 needle See Rx Instructions .ROUTE .MEDSUPPLY Qty: 150 11RF Rx Instructions: As directed five times a day (DME) pen needle, diabetic [BD Nicole 2nd Gen Pen Needle] 32 gauge x 5/32 needle See Rx Instructions .MEDSUPPLY Qty: 200 10RF Rx Instructions: 5 times a day (DME) lancets [FreeStyle Lancets] 28 gauge misc See Rx Instructions .ROUTE TID Qty: 100 Rx Instructions: As directed Jardiance 25 mg tablet 25 mg PO DAILY metoprolol succinate 100 mg tablet extended release 24 hr 100 mg PO DAILY pregabalin 300 mg capsule 300 mg PO BID ezetimibe 10 mg tablet 10 mg PO DAILY Referrals: [facility] [Provider Group, Urology] Referral Note: hematuria Print Language: Beninese
[2025-08-08 17:54] LABS: Hemoglobin 9.3 g/dl (14.0-18.0); NRBC Abs Auto 0.000 X10*3/uL (0.0-0.012); NRBC Pct Auto 0.0 /100WBC (0.0-0.2); PLT CLUMP 1; SCAN SMEAR FLAG 1
[2025-08-08 17:56] LABS: Hematocrit 29.9 % (42.0-52.0); Imm Gran Abs Auto 0.05 X10*3/uL (0.00-0.03); Imm Gran Pct Auto 0.5 % (0.0-0.4); Lymphocytes Absolute Auto 0.8 X10*3/uL (1.2-4.9); MANUAL DIFF FLAG SCAN; Mean Corpuscular HGB Conc 31.1 g/dl (31.0-36.0); Mean Corpuscular Hemoglobin 24.6 pg (27.0-33.0); Mean Corpuscular Volume 79.1 fL (80.0-98.0); Red Blood Count 3.78 X10*6/uL (4.60-5.80)
[2025-08-08 18:03] LABS: INTERNATIONAL NORM RATIO 1.2 (0.9-1.1); Prothrombin Time 14.1 SEC (10.9-12.4)
[2025-08-08 18:05] LABS: Alanine Aminotransferase 11 U/L (0-40); Albumin Level 2.9 g/dL (3.5-5.0); Alkaline Phosphatase 79 U/L (39-117); Anion Gap 13 (12-20); Aspartate Amino Transferase 36 U/L (5-37); Blood Urea Nitrogen 17 mg/dL (9-16); Calcium 8.5 mg/dL (8.4-10.2); Carbon Dioxide 27 mmol/L (22-29); Chloride 105 mmol/L (96-108); Creatinine Clr Calc Pharmacy 42.5; Estimated Glomerular Filt Rate > 60; Partial Thromboplastin Time 27.4 SEC (26.7-34.1); Potassium 3.5 mmol/L (3.3-5.1); Sodium 141 mmol/L (135-145); Total Protein 7.0 g/dL (6.5-8.0)
[2025-08-08 18:12] LABS: Platelet Count 429 X10*3/uL (160-400); White Blood Count 9.5 X10*3/uL (4.8-10.8)
[2025-08-08] MEDS: iohexoL 350 MG/ML 100 ML INFUS..BTL IV (18:13)
[2025-08-08 19:03] LABS: IDNOW Serial# 08D9AD1C; Influenza B2 Negative (Negative)
[2025-08-08 19:04] LABS: COVID-19 Test Negative (Negative); IDNOW Serial# 6674DD1D
[2025-08-08 19:39] VITALS: BP 130/64; PULSE 97; RESP 19; TEMP 37.2; O2SAT 96
[2025-08-08 22:10] VITALS: BP 119/52; PULSE 95; RESP 19; TEMP 37.4; O2SAT 97
[2025-08-09 00:12] VITALS: BP 139/61; PULSE 84; RESP 18; TEMP 37; O2SAT 98
--- NOTE | 2025-08-09 00:38 | PC.NURSE ---
pt bladder scanned to be 682, provider Solo Garces made aware, order for indwelling urinary catheter placed
--- NOTE | 2025-08-09 00:48 | PC.NURSE ---
Addendum entered by Adrián Coley RN 08/09/25 00:49: urine sample obtained and sent to the lab Original Note: pt able to urinate independently provider Solo Garces cancelled indwelling urinary catheter order
[2025-08-09 00:53] LABS: Appearance Urine Cloudy; Glucose Urine UA >=1000 mg/dL (Negative); PH 7.5 (5.0-9.0); Specific Gravity - Urine >= 1.030 (1.005-1.025); UMIC TRIGGER UACC YES
[2025-08-09 00:55] LABS: UACC Culture Trigger YES
--- NOTE | 2025-08-09 01:42 | PC.NURSE ---
at this time this RN spoke w/ Shaday at [facility] giving an update on pt condition and D/C, pt pending EMS tranp[ort back to facility
[2025-08-09 02:24] VITALS: BP 139/61; PULSE 84; RESP 18; TEMP 37; O2SAT 98
== END 2025-08-09 02:26 | disposition skilled nursing facility (03) ==
PROVIDERS: Physician Assistant; Emergency Provider Emergency Medicine; PCP Internal Medicine
DX: R31.9 Hematuria, unspecified (principal); N40.0 Benign prostatic hyperplasia without lower urinary tract symptoms; I13.0 Hypertensive heart and chronic kidney disease with heart failure and stage 1 through stage 4 chronic kidney disease, or unspecified chronic kidney disease; I50.32 Chronic diastolic (congestive) heart failure; N18.9 Chronic kidney disease, unspecified; E11.22 Type 2 diabetes mellitus with diabetic chronic kidney disease; Z89.411 Acquired absence of right great toe; Z79.899 Other long term (current) drug therapy
CPT/HCPCS: 36415; 71045; 74177; 80053; 81001; 85025; 85610; 85730; 87086; 87502; 87635; 96360; 99285; Q9967

== ENCOUNTER → 2025-08-08 18:30 | Outpatient (BNV) | payer OTHER, SELFPAY | PROVIDERS: Emergency Provider Emergency Medicine; PCP Internal Medicine; Visit Provider Student in an Organized Health Care Education/Training Program | DX: K57.30 Diverticulosis of large intestine without perforation or abscess without bleeding (principal); N40.0 Benign prostatic hyperplasia without lower urinary tract symptoms; R05.9 Cough, unspecified | CPT/HCPCS: 71045; 74177 ==

== ENCOUNTER 2025-08-19 08:54 | Outpatient (AMB) | payer OTHER, SELFPAY ==
--- OUTSIDE RECORDS SUMMARY | 2025-05-01 04:30 | XMS_ITS ---
Author Organization [facility] Address [address] [place] [address] Care Team Providers Care Power Plant Operator Apprentice Name Role Phone Pushpa Ruvalcaba Primary Care Provider Unavailab ainsley Dulce Laureano Unavailable [phone] Pushpa Ruvalcaba Unavailable Unavailable Mi Contreras Unavailable [phone] REASON FOR VISIT no YIELD ENGINEER ppwrk Encounters Encounter Location Date Provider Diagnosis [address] [address] 05/01/2025 Mi Contreras Plan Of Treatment Next Appt Details Provider Name:Dulce Laureano , 09/15/2025 10:15:00 AM, [address] [place], [address], Progress Notes * Andres WEINSTEIN ADOB:[birth year] (85 yo M)Acc No.[id number]:05/01/2025 Progress Notes Patient: Agatha Andres GRAHAM Provider: Timi Contreras DPM :1940 A ge:85 Y S ex:Male Date:05/01/2025 Address:[address] [place] [address] Pcp:Pushpa Ruvalcaba Subjective: * Chief Complaints: * 1 . no YIELD ENGINEER ppwrk. * Medical History: Objective: * Vitals: Assessment: Plan: * Treatment: * Images: * The named appointment provid er may or may not be the originator of this progress note, and it is not deemed complete until electronically signed by the appointment provider. Sign off status: Pending * Provider: Timi Contreras DPM Date: 0 05/01/2025 Generated for Bill duque/Carin/Jessica on: 09:23 AM EDT
--- NOTE | 2025-08-19 09:01 | A.OFFVIS_ITS ---
Intake Visit Reasons: 2 week follow up R Great & 4th toe amp 08/04/25 Intake Note: 2 week follow up Right Great Toe and 4th toe amp 08/04/25. Pt was in rehab for 1 week and family took pt home after being unhappy w/ the care s/p pt fall while in their care. Family is changing bandage daily. Has sutures/anai and foul smell. [facility]NA does come to change dressing QOD, family is asking for PT Accompanied by: Family/Other Allergies codeine (CODEINE) Adverse Reaction (Severe, Verified 08/19/25 09:07) UNKNOWN lisinopril Allergy (Intermediate, Uncoded 08/19/25 09:07) choking HPI HPI 2 week follow up R Great & 4th toe amp 08/04/25: Details: The patient is an 85-year-old male presenting with follow-up care after right great and fourth toe amputations. The amputations were performed on 08/04/2025, and the patient is currently experiencing pain, which is being managed with medication administered every six hours. The patient experienced increased pain following a fall at the retirement, which likely exacerbated the discomfort. The wound from the amputation is having difficulty healing, as noted during the examination. Anai were removed during the visit, but stitches were left in place to aid in the healing process. The patient is prescribed antibiotics to assist with the healing process, with instructions to take one pill twice a day. [facility] Medical History GERD (gastroesophageal reflux disease) Seizures History of recent vascular procedure (07/23/25) Mass of buttock Left buttock abscess Epidermal cyst Obesity due to excess calories CHF (congestive heart failure) Hypokalemia Diabetic nephropathy associated with type 2 diabetes mellitus CHF (congestive heart failure) Epilepsy Type 2 diabetes mellitus with hyperglycemia, with long-term current use of insulin Secondary hyperparathyroidism Diabetic neuropathy associated with type 2 diabetes mellitus CAD (coronary artery disease) (HFpEF) heart failure with preserved ejection fraction Hypertension Coronary stent patent BPH (benign prostatic hyperplasia) Dyslipidemia Neuropathy associated with endocrine disorder CKD (chronic kidney disease) Diabetes mellitus, type 2 Surgical History H/O colonoscopy Stented coronary artery Hx of cardiac cath Family History Father Diabetes CVD (cardiovascular disease) Mother Diabetes CVD (cardiovascular disease) Brother Diabetes Son Thyroid disease Lung disease Psoriasis HTN (hypertension) Social History Household Members: Family Housing: Apartment Are you a primary certified caregiver to a significant other at home: No Do you presently have visiting nurse or other home services: Yes Alcohol intake: never Patient Tobacco Use Status: Former Tobacco user Tobacco use type: Cigarette Advance Directives Date on File: 05/18/21 service: No Current occupational status: retired Review of Systems Const All systems reviewed & are unremarkable except as noted in HPI and below Reports no additional complaints ENT Reports Normal hearing present Card Denies chest pain, Denies chest pain at rest, Denies chest pain with activity and Denies pedal edema Resp Denies cough GI Denies abdominal pain Musc Denies abnormal gait, Denies muscle cramps and Denies radiating pain into limb Skin/Breast Denies skin ulcer and Denies wounds Neuro Reports Normal hearing present and Denies abnormal gait Psych Reports no additional complaints Physical Exam Const General: cooperative, healthy appearing and comfortable Orientation/consciousness: oriented to person, oriented to place and oriented to time HEENT Head: Yes normal to inspection Neck Neck: Yes normal visual inspection Carotids: no bruits Chest Chest palpation & inspection: normal inspection of the chest Resp Effort & Inspection: normal respiratory effort and able to speak in complete sentences Auscultation: clear to auscultation bilaterally, no crackles, no rales, no rhonchi and no wheezes Cardio Other: Bilateral DP signals Rate: regular rate Rhythm: regular rhythm Heart sounds: S1 normal heart sound present and S2 normal heart sound present Bruits: no carotid bruits Peripheral pulses: Peripheral pulses 2+ throughout GI Inspection: Yes normal to inspection Skin Other: Right great toe wound measuring 5.5 x 4.5 x 0.1 cm. Right 4th toe appears to be healing well. Wounds: amputation site Hair: normal Neuro General: oriented to person, oriented to place and oriented to time Cranial nerves: Yes CN's II-XII intact bilaterally and Yes Normal hearing present Cognition (Neuro): normal cognition Motor exam (neuro): 5/5 motor strength present throughout Extrem Other: venous exam: No significant superficial varicosities or spider telangiectasias, minimal edema General: No clubbing, No cyanosis and No edema Psych Appearance: grossly normal Mental Status: mental status grossly normal Speech and movement: Normal speech and movement present Assessment & Plan Assessment & Plan (1) PAD (peripheral artery disease): Comment: 07/23/2025 - right peroneal plasty 08/04/2025 - right great and 4th toe amputation Code(s): I73.9 - Peripheral vascular disease, unspecified Category: Medical Plan: The right 4th toe appears to be healing well. The concern here is the great toe amputation site skin is overall boggy poorly healing. We will add antibiotics to the regimen. In addition we will continue with alginate dressings to be changed 3 times a week. He does have visiting nurses engaged. He will follow up with us in the proximally 2 weeks' time. Antibiotics were prescribed for him. Thank you for allowing us to assist in his care. If there are any questions or concerns please do not hesitate to contact us. Plan Patient was informed and verbally consented to the use of an ambient scribe for clinic note documentation during this visit. Medications: New cephalexin 500 mg PO BID 20 caps 0RF Patient Instructions: - Take prescribed antibiotics one pill twice a day. - Continue pain medication every six hours as needed. - Return for follow-up in two weeks. Coding Level of Care Code Est Pt Level 4 (22968) Diagnoses PAD (peripheral artery disease) I73.9
--- OUTSIDE RECORDS SUMMARY | 2025-08-19 09:23 | XMS_ITS | Clinical Summary ---
Author Organization [facility] Address [address] [place] [address] Care Team Providers Care Drum Barker Operator Name Role Phone Unavailable Primary Care [...] Drug Screen 10/30/2024 Depression Annual Screen 10/30/2024 [id number] (3 - 2024- season) 2025 021, 02/10/2021 Imm-Influenza (#1) 2025 09/18/2020 Imm-Pneumococcal 50+ Completed 01/11/2017, 07/12/20 16 Insurance [place] MEDICAID Member Subscriber Plan / Payer (Ef fective 2021-Present) Name:Andres Weinstein Relation to Subscriber:Self Name:Andres Weinstein Payer ID:[id number] Type:Medicaid Address: [address] [id number] MEDICARE - [place]
--- OUTSIDE RECORDS SUMMARY | 2025-08-19 09:24 | XMS_ITS | Clinical Summary ---
Author Organization [facility] Address [address] [place] [address] Phone Care Team Providers Care Trade Manager Name Role Phone Pushpa Ruvalcaba MD Primary [...] Medicaid [place] Care Teams Trade Manager Relationship Specialty Start Date End Date Pushpa Ruvalcaba MD [facility] [address] PCP - General 11/09/20
--- OUTSIDE RECORDS SUMMARY | 2025-08-19 09:24 | XMS_ITS | Patient Health Record ---
Author Organization [facility] Address [address] [place] [address] Care Team Providers Care Charrer Name Role Phone Pushpa Ruvalcaba Primary Care Provider UnavailSon Cage Unavailable [phone] Allergies Allergen (clinical drug ingredient) Drug/Non Drug Allergy documented on EMR Reaction Allergy Type Onset Date Status Tylenol/Codeine #3 Unknown Drug Allergy Active lisinopril Lisinopril Unknown Drug Allergy Activ e Reason For Referral No Information Medications Medication SIG (Take, Route, Frequency, Duration) Notes Start Date End Date Status Phenytoin Sodium Extended 100 MG TOME MARTHA C?PSULAS POR V?A ORAL DOS VECES AL D?A Oral; Duration: 90 Active Valsartan-hydroCHLOROthiaz micki 320-25 MG TOME SERGO TABLETA POR V?A ORAL TODOS LOS D? Oral; Duration: 90 Active NovoLOG 100 UNIT/ML INJECT 30 UNITS TWIC E A DAY ANTES DE LAS COMIDAS Subcutaneous; Duration: 50 Activ e Omeprazole 20 MG 1 capsule Orally Onc e a day for heartburn; Duration: 30 day(s) 10/19/2017 Active Zetia 10 MG 1 tablet Orally Once a day Active Tresiba FlexTouch 200 UNIT/ML INJECT 105 UNITS A DIARIO Subcutaneous; Duration: 34 Activ e Phenytoin Sodium 100 3 ORAL BID Active Zantac 75 75 MG 2 tablets Orally QD Active Dilantin 100 MG 3capsule Orally TWO times a day Active Crestor 40 MG 1 tablet Orally Once a day Active Metoprolol Succinate ER 50 MG 1 tablet Orally Once a day A ctive Aspirin 81 MG TOME SERGO TABLETA POR V?A ORAL TODOS LOS D? Oral; Duration: 30 Active Aspir-81 81 MG 1 tablet [...] Problem Status W/U Status Risk Notes Problem Abdominal bloating (285056308) Abdominal bloating (R14.0) Active confirmed Problem Gastroesophageal reflux disease without esophagitis (079877678) Gastroesophageal reflux disease without esophagitis (K21.9) Active confirmed Plan Of Treatment Future Test Test Name Order Date COLONOSCOPY 03/14/2013 Insurance Providers Payer Name Payer Address Payer Phone Subscriber Number Group Number Insured Name Patient Relationship to Insured Coverage Start Date Coverage End Date MEDICARE OF [place] [address] [place] [id number] MORALES Self - patient is the insured MEDICAID OF [facility] [address] [place] [id number] MORALES Self - patient is the insured Medical (General) History Medical History History ICD Code GERD-EGD in 12/2001-small HH-no Sanchez's nor sig. esophagitis Tubular adenoma removed in 12/2001 Hyperlipidemia IDDM Seizure disorder Denies [place],CVA,Lung disease,renal disease Decreased hearing in both ears HTN Colonoscopy in04/2013--negative except fo r diverticulosis
--- OUTSIDE RECORDS SUMMARY | 2025-08-19 09:24 | XMS_ITS | Patient Health Record ---
Author Organization [facility] Address [address] [place] [address] Care Team Providers Care Trading Specialist Name Role Phone Pushpa Ruvalcaba Primary Care Provider Unavailab Dulce Cartwright Unavailable [phone] Pushpa Ruvalcaba Unavailable Unavailable Mi Contreras Unavailable [phone] Allergies No Known Allergies Results Component Value [...] Polyneuropathy due to type 2 diabetes mellitus (463964733) Type 2 diabetes mellitus with diabetic polyneuropathy (E11.42) Active confirmed Problem Foot ulcer due to type 2 diabetes mellitus (4587914740637) Type 2 diabetes mellitus with foot ulcer (E11.621) Active confirmed Problem Bilateral atherosclerosis of arteries of lower limbs (disorder) (14554170912718127 ) Atherosclerosis of [place] artery of both lower extremities, with unspecified [...] Ordered Date Performed Result Body Sit e 06669-ZEOOXKE NAIL, 6 OR MORE 05/29/2025 N/A 44560-NTHW SKIN LESIONS, 2 TO 4 05/29/2025 N/A Encounters Encounter Location Date Provider Diagnosis [address] [address] 05/29/2025 Dulcejosué Laureano Type 2 diabetes mellitus with diabetic polyneuropathy E11.42 ; Tinea unguium B35.1 ; Atherosclerosis of [place] artery of both lower extremities, with unspecified presence of clinical manifestation I70.203 ; 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 L97.514 ; 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.514 and Type 2 diabetes mellitus with foot ulcer E11.[address] [address] 07/22/2025 Dulce Black [address] [address] 04/24/2025 Mi Contreras [facility] [place] [address] 05/29/2025 Dulce Laureano Assessments Encounter Date Diagnosis (ICD Code) Assessment Notes Treatment Notes Treatment Clinical Notes Section Notes 05/29/2025 Tinea unguium (ICD-10 - B35.1) 05/29/2025 Type 2 diabetes mellitus with diabetic polyneuropathy (ICD-10 - E11.42) 05/29/2025 Atherosclerosis of [place] artery of both lower extremities, with unspecified [...] Treatment Pending Test Test Name Order Date 08518-GRUKYEO NAIL, 6 OR MORE 05/29/2025 18395-TPQG SKIN LESIONS, 2 TO 4 05/29/20 25 Next Appt Details Provider Name:Dulce Laureano , 09/15/2025 10:15:00 AM, [address] [place] [address], [address], Insurance Providers Payer Name Payer Address Payer Phone Subscriber Number Group Number Insured Name Patient Relationship to Insured Coverage Start Date Coverage End Date [facility] [address] [place] [phone] [id number] Andres Weinstein Self - patient is the insured Medical (General) History Medical History History ICD Code Diabetic High Blood Pressure Seizures Lumbar radiculopathy Congestive heart failure edema CLD
== END 2025-08-19 09:53 | disposition home or self-care (01) ==
LOC: HO.HVS 08:55
PROVIDERS: PCP Internal Medicine; Visit Provider Surgery Vascular Surgery
DX: I73.9 Peripheral vascular disease, unspecified (principal)
CPT/HCPCS: 99214

== ENCOUNTER → 2025-08-19 08:54 | Outpatient (BNVA) | payer OTHER, SELFPAY | PROVIDERS: PCP Internal Medicine; Visit Provider Surgery Vascular Surgery | DX: Z48.02 Encounter for removal of sutures (principal); T87.43 Infection of amputation stump, right lower extremity; Z89.411 Acquired absence of right great toe; Z89.421 Acquired absence of other right toe(s); Z98.890 Other specified postprocedural states; I73.9 Peripheral vascular disease, unspecified | CPT/HCPCS: 99212 ==

== ENCOUNTER 2025-08-22 15:54 | Outpatient (AMB) | payer MEDICARE, MEDICAID, SELFPAY ==
--- OUTSIDE RECORDS SUMMARY | 2025-05-01 04:30 | XMS_ITS ---
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 * Medical History: Objective: * Vitals: Assessment: Plan: * Treatment: * Images: * The named appointment provid er may or may not be the originator of this progress note, and it is not deemed complete until electronically signed by the appointment provider. Sign off status: Pending * Provider: Timi Contreras DPM Date: 0 05/01/2025 Generated for Bill duque/Carin/Jessica on: 05:06 PM EDT
--- NOTE | 2025-08-22 15:58 | HO.NEPHOV_ITS ---
Vital Signs 08/22/25 16:00 Height 5 ft 4 in Weight 196 lb BMI 33.6 BP 122/60 Blood Pressure Location Rt brachial Position Sitting Pulse 92 Pulse Source Pulse Oximeter Pulse Oximetry (%) 98 Oxygen Delivery Method Room Air Intake Visit Reasons: FU/ Needs late appt, conf. may come earlier Green Building Materials Designer Required: Yes Green Building Materials Designer Language: Mosaic Worker Services: Green Building Materials Designer Present Green Building Materials Designer Name: Lora [id number] Information Interpreted: clinical only Accompanied by: Daughter Allergies codeine (CODEINE) Adverse Reaction (Severe, Verified 08/26/25 15:51) UNKNOWN lisinopril Allergy (Intermediate, Uncoded 08/26/25 15:51) choking Medication List - Last Reconciled 08/22/25 by Zan Campbell MD alirocumab (Praluent Pen) 75 mg subcut Q2W aspirin (Adult Low Dose Aspirin) 81 mg PO DAILY BD Nicole 2nd Gen Pen Needle (pen needle, diabetic) 5 times a day NS blood sugar diagnostic As directed cephalexin 500 mg PO BID cholecalciferol (vitamin D3) (Vitamin D3) 25 mcg PO DAILY clopidogrel (Plavix) 75 mg PO DAILY empagliflozin (Jardiance) 25 mg PO DAILY ezetimibe 10 mg PO DAILY furosemide 80 mg PO BID insulin aspart U-100 (Novolog FlexPen U-100 Insulin aspart) 14 units subcut TID insulin glargine (Lantus Solostar U-100 Insulin) 26 units subcut BEDTIME isosorbide mononitrate ER 60 mg PO DAILY lancets (FreeStyle Lancets) As directed metoprolol succinate ER 100 mg PO DAILY oxycodone 5 mg PO Q4H PRN 5 days pantoprazole (Protonix) 20 mg PO DAILY@0630 pen needle, diabetic (BD Ultra-Fine Nicole Pen Needle) As directed five times a day phenytoin sodium extended (Dilantin Extended) 200 mg PO BID pregabalin 300 mg PO BID rosuvastatin 40 mg PO DAILY sertraline 25 mg PO DAILY PRN tamsulosin 0.4 mg PO DAILY HPI Comments Details: Elderly man with a h/o CKD in a setting of CHF and CAD and DM Accompanied by family c/o Edema No dyspnea On high dose of Lasix Doing better today Lost 5- 6 lbs 07/11/24 ;c/o GIRALDO ;Gained 6 lbs 08/01/24 ;Dyspnea improved with Metolazone ;Still with edema 09/09/24 ;Feels better ;Lost 10 lbs since last visit ;Accompanied by son ;Mom administers meds 12/23/24 Overall doing OK. No new issues 04/03 85-year-old male presenting with chronic kidney disease. This diagnosis has been under observation since November, with recent laboratory results from January indicating stable kidney function. The patient denies issues with urination or breathing difficulties, suggesting that kidney performance remains stable. Blood pressure is well-controlled at 118/60 mmHg, and diabetes management continues under current medications without recent adjustments. Dietary habits have been modified to reduce salt intake, with occasional deviations. The continued emphasis on maintaining stable blood glucose and blood pressure levels highl ights the focus on controlling comorbid systemic conditions to support renal function. 08/22/25 - The patient is an 85-year-old male presenting with chronic kidney disease. - Chronic kidney disease monitored with heart failure and diabetes mellitus. 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 - CT scan showed prostatic hypertrophy; urology follow-up scheduled. - Peripheral edema managed with furosemide twice daily. - Blood glucose fasting 126 mg/dL, postprandial up to 175 mg/dL, managed with insulin. [facility] Medical History GERD (gastroesophageal reflux disease) Seizures History of recent vascular procedure (07/23/25) Mass of buttock Left buttock abscess Epidermal cyst Obesity due to excess calories CHF (congestive heart failure) Hypokalemia Diabetic nephropathy associated with type 2 diabetes mellitus CHF (congestive heart failure) Epilepsy Type 2 diabetes mellitus with hyperglycemia, with long-term current use of insulin Secondary hyperparathyroidism Diabetic neuropathy associated with type 2 diabetes mellitus CAD (coronary artery disease) (HFpEF) heart failure with preserved ejection fraction Hypertension Coronary stent patent BPH (benign prostatic hyperplasia) Dyslipidemia Neuropathy associated with endocrine disorder CKD (chronic kidney disease) Diabetes mellitus, type 2 Surgical History H/O colonoscopy Stented coronary artery Hx of cardiac cath Family History Father Diabetes CVD (cardiovascular disease) Mother Diabetes CVD (cardiovascular disease) Brother Diabetes Son Thyroid disease Lung disease Psoriasis HTN (hypertension) Social History Household Members: Family Housing: Apartment Are you a primary patient care to a significant other at home: No Do you presently have visiting nurse or other home services: Yes Alcohol intake: never Patient Tobacco Use Status: Former Tobacco user Tobacco use type: Cigarette Advance Directives Date on File: 05/18/21 service: No Current occupational status: retired Physical Exam Vital Signs: Last Vital Signs Pulse 92 08/22/25 16:00 BP 122/60 08/22/25 16:00 Pulse Ox 98 08/22/25 16:00 Oxygen Delivery Method Room Air 08/22/25 16:00 BMI result Body Mass Index 33.6 Awake. Comfortable. Neck is supple. Mucosa moist. Lungs AE equal Heart S1-S2 heard no gallop. Abdomen soft. Extremities trace to 1 to 2 + edema. No involuntary movements. No myoclonus. Results Reviewed Nephrology Results: Hgb, (14.0-18.0) 9.3 g/dl L 08/08/25 WBC, (4.8-10.8) 9.5 X10*3/uL 08/08/25 Plt Count, (160-400) 429 X10*3/uL H 08/08/25 Sodium, (135-145) 141 mmol/L 08/08/25 Potassium, (3.3-5.1) 3.5 mmol/L 08/08/25 Chloride, (96-108) 105 mmol/L 08/08/25 Carbon Dioxide, (22-29) 27 mmol/L 08/08/25 BUN, (9-16) 17 mg/dL H 08/08/25 Creatinine, (0.5-1.4) 1.08 mg/dL 08/08/25 Calcium, (8.4-10.2) 8.5 mg/dL 08/08/25 Urine Protein, (Neg-Trace) 30 (1+) mg/dL H 08/09/25 Assessment & Plan Assessment & Plan (1) Chronic heart failure with preserved ejection fraction (HFpEF): Code(s): I50.32 - Chronic diastolic (congestive) heart failure Category: Medical (2) CKD (chronic kidney disease): Code(s): N18.9 - Chronic kidney disease, unspecified Category: Medical Qualifiers: Chronic kidney disease stage: stage 3 (moderate) Chronic kidney disease stage 3 subtype: stage 3a (GFR 45-59) Qualified Code(s): N18.31 - Chronic kidney disease, stage 3a (3) (HFpEF) heart failure with preserved ejection fraction: Code(s): I50.30 - Unspecified diastolic (congestive) heart failure Category: Medical Qualifiers: Heart failure chronicity: unspecified Qualified Code(s): I50.30 - Unspecified diastolic (congestive) heart failure Plan CKD in a setting of longstanding DM and CHF Needs to stay on low salt diet. Discussed with family Keep Lasix 80 mg BID Keep Zaroxylin 2.5 mg ONCE a week Maintain BP < 130/80 DM- Blood sugar is sub optimal Discussed importance of tight control Maintain A1C < 7% Would benefit from SGLT-2 inhibitor - continue with Jardiance Watch K while of Spironolactone Keep Vit D to correct deficiency Mild Anemia Stable. No indication for Epogen Patient Instructions: - Continue current medications as prescribed. - Attend urology appointment on September 24 for prostate evaluation. - Monitor blood glucose levels regularly and maintain insulin regimen. - Report any new symptoms or changes in condition promptly. Coding Level of Care Code Est Pt Level 4 (98715) Diagnoses Chronic heart failure with preserved ejection fraction (HFpEF) I50.32 Stage 3a chronic kidney disease N18.31 Chronic kidney disease stage: stage 3 (moderate) Chronic kidney disease stage 3 subtype: stage 3a (GFR 45-59) Heart failure with preserved ejection fraction, unspecified HF chronicity I5 0.30 Heart failure chronicity: unspecified
[2025-08-22 16:00] VITALS: BP 122/60; PULSE 92; O2SAT 98; BMI 33.6
--- OUTSIDE RECORDS SUMMARY | 2025-08-22 17:07 | XMS_ITS | Clinical Summary ---
Author Organization [facility] Address [address] [place] [address] Care Team Providers Care Plating Foreman Name Role Phone Unavailable Primary Care Provider [...] Drug Screen 10/30/2024 Depression Annual Screen 10/30/2024 Vsl-TRNSY-20 (3 - 2024- season) 2025 021, 02/10/2021 Imm-Influenza (#1) 2025 09/18/2020 Imm-Pneumococcal 50+ Completed 01/11/2017, 07/12/20 16 Insurance [place] MED[place] Member Subscriber Plan / Payer (Ef fective 2021-Present) Name:Andres Weinstein Relation to Subscriber:Self Name:Andres Weinstein Payer ID:[id number] Type:Medicaid Address: [address] [id number] MEDICARE - [place]
--- OUTSIDE RECORDS SUMMARY | 2025-08-22 17:07 | XMS_ITS | Patient Health Record ---
Author Organization [facility] Address [address] [place] [address] Care Team Providers Care Cosmetics Supervisor Name Role Phone Pushpa Ruvalcaba Primary Care Provider UnavailSon Cage Unavailable [phone] Allergies Allergen (clinical drug ingredient) Drug/Non Drug [...] W/U Status Risk Notes Problem Abdominal bloating (445687433) Abdominal bloating (R14.0) Active confirmed Problem Gastroesophageal reflux disease without esophagitis (078154012) Gastroesophageal reflux disease without esophagitis (K21.9) Active confirmed Plan Of Treatment Future Test Test Name Order Date COLONOSCOPY 03/14/2013 Insurance Providers Payer Name Payer Address Payer Phone Subscriber Number Group Number Insured Name Patient Relationship to Insured Coverage Start Date Coverage End Date MEDICARE OF [place] [address] [place] [id number] MORALES Self - patient is the insured MEDICAID OF [facility] [address] [place] [id number] MORALES Self - patient is the insured Medical (General) History Medical History History ICD Code GERD-EGD in 12/2001-small HH-no Sanchez's nor sig. 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
--- OUTSIDE RECORDS SUMMARY | 2025-08-22 17:07 | XMS_ITS | Patient Health Record ---
Author Organization [facility] Mazaley Address [address] [place] [address] Care Team Providers Care De Icer Finisher Name Role Phone Pushpa Ruvalcaba Primary Care Provider Unavailab Dulce Cartwright Unavailable [phone] Pushpa Ruvalcaba Unavailable Unavailable Mi Contreras Unavailable [phone] Allergies No Known Allergies Results Component Value Reference Range Notes HEMOGLOBIN A1C (GLYCOHEMOGLO BIN) Reviewed date:05/29/2025 09:43:31 AM Interpretation: Performing Lab: Notes/Report: HEMOGLOBIN A1C % (HH) 6.7 Reason For Referral Diagnosis 1 Type 2 diabetes juan ramon itus with diabetic polyneuropathy (E11.42) Referring Provider First Name Pushpa Referring Provider Last Name Peg [facility] Referred Provider Dulce Laureano Referred Address [address] [place],[address], Referred Provider Specialty Podiatry Referral Priority Routine Medications Medication SIG (Take, Route, Frequency, Duration) [...] Polyneuropathy due to type 2 diabetes mellitus (442464039) Type 2 diabetes mellitus with diabetic polyneuropathy (E11.42) Active confirmed Problem Foot ulcer due to type 2 diabetes mellitus (0950403336745) Type 2 diabetes mellitus with foot ulcer (E11.621) Active confirmed Problem Bilateral atherosclerosis of arteries of lower limbs (disorder) (65618149114384846 ) Atherosclerosis of [place] artery of both lower extremities, with unspecified [...] Ordered Date Performed Result Body Sit e 29997-DJNNUTA NAIL, 6 OR MORE 05/29/2025 N/A 23103-OXBQ SKIN LESIONS, 2 TO 4 05/29/2025 N/A Encounters Encounter Location Date Provider Diagnosis [facility] [address] [place] [address] 05/29/2025 Dulce Black Type 2 diabetes mellitus with diabetic polyneuropathy E11.42 ; Tinea unguium B35.1 ; Atherosclerosis of [place] artery of both lower extremities, with unspecified presence of clinical manifestation I70.203 ; 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 L97.514 ; 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.514 and Type 2 diabetes mellitus with foot ulcer E11.621 [facility] [address] [place] [address] 04/24/2025 Mi Contreras [facility] [address] [place] [address] 05/29/2025 Dulce Laureano [facility] [address] [place] [address] 07/22/2025 Dulce Laureano Assessments Encounter Date Diagnosis (ICD Code) Assessment Notes Treatment Notes Treatment Clinical Notes Section Notes 05/29/2025 Tinea unguium (ICD-10 - B35.1) 05/29/2025 Type 2 diabetes mellitus with diabetic polyneuropathy (ICD-10 - E11.42) 05/29/2025 Atherosclerosis of [place] artery of both lower extremities, with unspecified [...] Treatment Pending Test Test Name Order Date [id number] NAIL, 6 OR MORE 05/29/2025 14871-MDCD SKIN LESIONS, 2 TO 4 05/29/20 25 Next Appt Details Provider Name:Dulce Laureano , 09/15/2025 10:15:00 AM, [address] [place], [address], Insurance Providers Payer Name Payer Address Payer Phone Subscriber Number Group Number Insured Name Patient Relationship to Insured Coverage Start Date Coverage End Date [facility] [address] [place] [phone] [id number] Andres Weinstein Self - patient is the insured Medical (General) History Medical History History ICD Code Diabetic High Blood Pressure Seizures Lumbar radiculopathy Congestive heart failure edema CLD
--- OUTSIDE RECORDS SUMMARY | 2025-08-22 17:07 | XMS_ITS | Clinical Summary ---
Author Organization [facility] Address [address] [place] [address] Phone Care Team Providers Care Billing Specialist Name Role Phone Pushpa Ruvalcaba MD Primary [...] Medicaid [place] Care Teams Billing Specialist Relationship Specialty Start Date End Date Pushpa Ruvalcaba MD [facility] [address] PCP - General 11/09/20
== END 2025-08-22 16:12 | disposition home or self-care (01) ==
LOC: HO.HKA 15:55
PROVIDERS: PCP Internal Medicine; Visit Provider Internal Medicine Hypertension Specialist
DX: I50.32 Chronic diastolic (congestive) heart failure (principal); N18.31 Chronic kidney disease, stage 3a; I50.30 Unspecified diastolic (congestive) heart failure
CPT/HCPCS: 99214

== ENCOUNTER → 2025-08-22 15:54 | Outpatient (BNVA) | payer OTHER, SELFPAY | PROVIDERS: PCP Internal Medicine; Visit Provider Internal Medicine Hypertension Specialist | DX: E11.65 Type 2 diabetes mellitus with hyperglycemia (principal); E11.42 Type 2 diabetes mellitus with diabetic polyneuropathy; E11.21 Type 2 diabetes mellitus with diabetic nephropathy; E11.22 Type 2 diabetes mellitus with diabetic chronic kidney disease; I13.0 Hypertensive heart and chronic kidney disease with heart failure and stage 1 through stage 4 chronic kidney disease, or unspecified chronic kidney disease; I50.32 Chronic diastolic (congestive) heart failure; I25.10 Atherosclerotic heart disease of native coronary artery without angina pectoris; N18.31 Chronic kidney disease, stage 3a; Z79.4 Long term (current) use of insulin | CPT/HCPCS: 99212 ==

== ENCOUNTER 2025-08-26 15:42 | Outpatient (AMB) | payer OTHER, SELFPAY ==
--- OUTSIDE RECORDS SUMMARY | 2025-05-01 04:30 | XMS_ITS ---
Author Organization [facility] Address [address] [place] [address] Care Team Providers Care Dairy Farm Manager Name Role Phone Pushpa Ruvalcaba Primary Care Provider Unavailab ainsley Dulce Laureano Unavailable [phone] Pushpa Ruvalcaba Unavailable Unavailable Mi Contreras Unavailable [phone] REASON FOR VISIT no INTERVENTIONIST ppwrk Encounters Encounter Location Date Provider Diagnosis [address] [address] 05/01/2025 Mi Contreras Plan Of Treatment Next Appt Details Provider Name:Dulce Laureano , 09/15/2025 10:15:00 AM, [address] [place], [address], Progress Notes * Andres WEINSTEIN ADOB:[birth year] (85 yo M)Acc No.[id number]:05/01/2025 Progress Notes Patient: Agatha Andres GRAHAM Provider: Timi Contreras DPM :1940 A ge:85 Y S ex:Male Date:05/01/2025 Address:[address] [place] [address] Pcp:Pushpa Ruvalcaba Subjective: * Chief Complaints: * 1 . no INTERVENTIONIST ppwrk. * Medical History: Objective: * Vitals: Assessment: Plan: * Treatment: * Images: * The named appointment provid er may or may not be the originator of this progress note, and it is not deemed complete until electronically signed by the appointment provider. Sign off status: Pending * Provider: Timi Contreras DPM Date: 0 05/01/2025 Generated for Bill duque/Carin/Jessica on: 07:58 PM EDT
--- NOTE | 2025-08-26 15:48 | A.OFFVIS_ITS ---
Intake Visit Reasons: 6m Observer Electrical Prospecting Required: Yes Observer Electrical Prospecting Name: #[id number] Accompanied by: Family/Other Allergies codeine (CODEINE) Adverse Reaction (Severe, Verified 08/26/25 15:51) UNKNOWN lisinopril Allergy (Intermediate, Uncoded 08/26/25 15:51) choking Medication List - Last Reconciled 08/26/25 by Kristyn Jordan, ASAD alirocumab (Praluent Pen) 75 mg subcut Q2W aspirin (Adult Low Dose Aspirin) 81 mg PO DAILY BD Nicole 2nd Gen Pen Needle (pen needle, diabetic) 5 times a day NS blood sugar diagnostic As directed cephalexin 500 mg PO BID cholecalciferol (vitamin D3) (Vitamin D3) 25 mcg PO DAILY clopidogrel (Plavix) 75 mg PO DAILY empagliflozin (Jardiance) 25 mg PO DAILY ezetimibe 10 mg PO DAILY furosemide 80 mg PO BID insulin aspart U-100 (Novolog FlexPen U-100 Insulin aspart) 14 units subcut TID insulin glargine (Lantus Solostar U-100 Insulin) 26 units subcut BEDTIME isosorbide mononitrate ER 60 mg PO DAILY lancets (FreeStyle Lancets) As directed metoprolol succinate ER 100 mg PO DAILY oxycodone 5 mg PO Q4H PRN 5 days pantoprazole (Protonix) 20 mg PO DAILY@0630 pen needle, diabetic (BD Ultra-Fine Nicole Pen Needle) As directed five times a day phenytoin sodium extended (Dilantin Extended) 200 mg PO BID pregabalin 300 mg PO BID rosuvastatin 40 mg PO DAILY sertraline 25 mg PO DAILY PRN tamsulosin 0.4 mg PO DAILY HPI Comments Details: He had 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 Memory has been declining, more trouble holding conversations over the last few months. More forgetful and repetitive. He could be frustrated at times, especially if had trouble remembering what he wanted to say. His daughter says he does not remember his birthday. No seizures. No missed doses of medication. No falls. Sleep was okay. He was living with his . CT brain showed atrophy and microvascular changes and his CTA was negative. Dilantin level was 12.3. Before this he had no Sz in > 20 yrs. Has diabetic neuropathy with numbness and burning pain in his feet, and now burning. sensation in his whole body, lower extremities, and trunk that keeps him from sleeping. Had lot of edema, taking Lasix 160mg. Had one admission for Dilantin toxicity on 05/22/18 with disorientation upon awakening and had Dilantin toxicity with level of 29. His dose was lowered to 500mg/ day and phenobarb was stopped. He started having seizures when he was 8 years old and had multiple seizures. He has been worked up in the past. According to his , he goes blank and then he falls down and has a convulsion that can last for up to an hour and he may be confused for up to 4 days after. [facility] Medical History GERD (gastroesophageal reflux disease) Seizures History of recent vascular procedure (07/23/25) Mass of buttock Left buttock abscess Epidermal cyst Obesity due to excess calories CHF (congestive heart failure) Hypokalemia Diabetic nephropathy associated with type 2 diabetes mellitus CHF (congestive heart failure) Epilepsy Type 2 diabetes mellitus with hyperglycemia, with long-term current use of insulin Secondary hyperparathyroidism Diabetic neuropathy associated with type 2 diabetes mellitus CAD (coronary artery disease) (HFpEF) heart failure with preserved ejection fraction Hypertension Coronary stent patent BPH (benign prostatic hyperplasia) Dyslipidemia Neuropathy associated with endocrine disorder CKD (chronic kidney disease) Diabetes mellitus, type 2 Surgical History H/O colonoscopy Stented coronary artery Hx of cardiac cath Family History Father Diabetes CVD (cardiovascular disease) Mother Diabetes CVD (cardiovascular disease) Brother Diabetes Son Thyroid disease Lung disease Psoriasis HTN (hypertension) Social History Household Members: Family Housing: Apartment Are you a primary insurance healthcare representative to a significant other at home: No Do you presently have visiting nurse or other home services: Yes Alcohol intake: never Patient Tobacco Use Status: Former Tobacco user Tobacco use type: Cigarette Advance Directives Date on File: 05/18/21 service: No Current occupational status: retired Review of Systems Const Denies chills, Denies daytime sleepiness, Denies difficulty sleeping, Denies fatigue, Denies fever(s), Denies frequent falls, Denies headache(s), Denies increased appetite, Denies poor appetite, Denies snoring, Denies weakness, Denies weight gain and Denies weight loss Eyes Denies loss of vision ENT Denies vertigo, Denies dizziness, Denies headache(s) and Denies neck pain Card Denies chest pain at rest, Denies chest pain with activity, Denies syncope, Denies leg edema, Denies palpitations, Denies dyspnea and Denies dyspnea on exertion Resp Denies cough, Denies dyspnea, Denies dyspnea on exertion and Denies snoring GI Denies abdominal pain, Denies constipation, Denies heartburn, Denies diarrhea and Denies nausea Denies urinary frequency, Denies urinary incontinence and Denies urinary urgency Musc Denies abnormal gait, Denies back pain, Denies myalgias, Denies arthralgias, Denies neck pain, Reports numbness and Reports tingling Neuro Denies abnormal gait, Denies vertigo, Denies dizziness, Denies syncope, Denies frequent falls, Denies headache(s), Denies lack of coordination, Denies loss of vision, Denies memory loss, Reports numbness, Denies Other visual disturbances, Denies restless legs, Denies seizure-like activity, Reports tingling, Denies paresthesias, Denies tremor(s) and Denies weakness Psych Denies anxiety, Denies depression, Denies auditory hallucinations, Denies memory loss and Denies visual hallucinations Endo Denies fatigue and Denies palpitations Physical Exam Const Other: General Appearance:? normal, in no acute distress. Heart:? S1, S2 normal, no murmurs. Lungs:? clear anteriorly and posteriorly. Musculoskeletal:? normal. Extremities:? no edema. Psych:? alert, cooperative with exam. Neuro Other: Abnormal Neurological Findings:?Absent AJ. Decreased vibration distal to midtarsal level. In wheelchair. He was unable to tell me his age or birthday. He was unable to tell me the month or year. He was able to tell me that he was here with his daughter. Mental Status: alert. Cranial Nerves: Pupils are equal, round, and reactive to light. External ocular muscles are intact. Visual qureshi are full, no ptosis. Face is symmetrical, no facial weakness or droop. Facial sensations are normal. Tongue protrudes in midline. Palate elevates symmetrically. Shoulder shrugging is normal Motor Examination: DTR 2+ with absent AJs. Plantars are flexor. Sensory Exam: As above. Coordination: No ataxia. No titubation. Gait Exam: In wheelchair. Cerebellar Signs: Cxwckt-ba-raks is okay. Extrapyramidal System: No tremor, rigidity with normal facial expressions. No bradykinesia. No bradyphrenia. Normal arm swing and posture. No propulsion or retropulsion. Speech: Normal. Results Reviewed Results Reviewed: [address] [address] [address] Scan Report Signed Patient: Andres Weinstein MR#: [id number] : 1940 Acct:[id number] Age/Sex: 84 / M ADM Date: 11/18/24 Loc: HO.ED Attending Dr: Ordering Physician: Kathrin Sheppard Date of Service: 11/18/24 Procedure(s): CT head/brain wo IV con Accession Number(s): [id number] cc: Pushpa Ruvalcaba MD; Kathrin Sheppard~ Report Number: [id number]: Total DLP = 1243.00 mGy-cm CLINICAL HISTORY: head strike CT head without contrast Comparison: CT/REG/SR - CT HEAD FOR STROKE - 05/07/24 17:41 EDT Findings: No intra-axial mass, midline shift, hydrocephalus, or acute hemorrhage. There is atrophy. Nonspecific supratentorial white matter hypodensities bilaterally most suggestive of chronic small-vessel ischemic changes. No territorial infarct. Nonacute very small lacunar infarcts in the right basal ganglia, left external capsule and in the fiordaliza. Atherosclerotic vascular disease. Mild mucosal thickening in left maxillary sinus and otherwise sinuses and mastoid air cells are clear. The orbits are unremarkable. No acute skull fracture. IMPRESSION: 1. No acute intracranial findings. 2. Stable nonacute findings as described. This document has been electronically signed by: Emma Stevenson MD on 11/18/2024 18:06:17 Dictated By: Emma Stevenson MD Signed By: <Electronically signed by Emma Stevenson MD in OV> 11/18/[address] [address] [address] Scan Report Signed Patient: Andres Weinstein MR#: [id number] : 1940 Acct:[id number] Age/Sex: 84 / M ADM Date: 05/07/24 Loc: HO.ED Attending Dr: Ordering Physician: Whitney Johnson MD Date of Service: 05/07/24 Procedure(s): CT head for stroke Accession Number(s): [id number] cc: Whitney Johnson MD; Physician,Unknown ~ EXAMINATION: CT HEAD WITHOUT CONTRAST (STROKE PROTOCOL) CLINICAL INFORMATION: Stroke protocol. Left arm and leg weakness COMPARISON: CT head 05/18/2021 TECHNIQUE: Contiguous axial imaging was performed from the skull base to vertex without intravenous administration of contrast. This CT examination was performed using dose optimization techniques as appropriate, variously including the following: *Automated exposure control *Adjustment of mA and/or kV according to patient size (this includes techniques or standardized protocols for targeted exams where dose is matched to indication/reason for exam; i.e. extremities or head) *Use of iterative reconstruction technique DLP: 1568 mGy-cm FINDINGS: There is no evidence of acute intracranial hemorrhage or edematous large vessel territorial infarction. No abnormal mass effect or midline shift is seen. Dan to white matter differentiation is well preserved. No abnormal extra-axial fluid collections are identified. Mild cerebral volume loss. Patchy deep white matter hypodensities suggesting chronic microangiopathic changes. No acute calvarial fracture. Paranasal sinuses and mastoid air cells are well-aerated. CT/CT head for stroke IMPRESSION: No CT evidence of acute intracranial hemorrhage or edematous large vessel territorial infarction. Chronic appearing changes, cerebral volume loss and deep white matter microangiopathy. A concurrent CTA head has been obtained, to be read by the neuroradiologist. This critical result was discussed with Dr. Johnson at 1814 hours on 05/07/2024. It was ascertained that the content and urgency of the report was understood at the time of direct communication. Dictated By: Duane Huber MD Signed By: <Electronically signed by Duane Huber MD in OV> 05/07/24 1824 Laboratory Tests 05/06/25 08:57 Vitamin B12 338 Folate 12.3 9/6/24 EEG- Mild diffuse 6-7 Hz slowing. No seizure activity. Assessment & Plan Assessment & Plan (1) Seizure disorder: Code(s): G40.909 - Epilepsy, unspecified, not intractable, without status epilepticus Category: Medical Plan: Continue phenytoin sodium extended 100mg 2 capsules twice a day. (2) Diabetic peripheral neuropathy: Code(s): E11.42 - Type 2 diabetes mellitus with diabetic polyneuropathy Category: Medical (3) Alzheimer dementia: Code(s): G30.9 - Alzheimer's disease, unspecified; F02.80 - Dementia in other diseases classified elsewhere, unspecified severity, without behavioral disturbance, ps ychotic disturbance, mood disturbance, and anxiety Category: Medical Qualifiers: Alzheimer's disease onset: unspecified onset Dementia severity: unspecified severity Dementia behavioral or psychological symptom: with mood disturbance Qualified Code(s): G30.9 - Alzheimer's disease, unspecified; F02.83 - Dementia in other diseases classified elsewhere, unspecified severity, with mood disturbance Plan: They were educated on this condition, its progression, and treatment. CT scans from 10/2024 and 04/2024 reviewed. Labs reviewed, vitamin B12 and folate were okay. TSH ordered. Plan . Orders: Orders TSH reflex Free T4 Today F02.83 - Dementia in other diseases classified elsewhere, unspecified severity, with mood disturbance, G30.9 - Alzheimer's disease, unspecified Medications: Changed From phenytoin sodium extended (Dilantin Extended) 200 mg PO BID To phenytoin sodium extended (Dilantin Extended) 200 mg (2 x 100 mg) PO BID 360 caps 1RF 90 days Coding Level of Care Code Est Pt Level 4 (31326) Diagnoses Seizure disorder G40.909 Diabetic peripheral neuropathy E11.42 Alzheimer's dementia with mood disturbance, unspecified dementia severity, unspecified timing of dementia onset G30.9; F02.83 Alzheimer's disease onset: unspecified onset Dementia severity: unspecified severity Dementia behavioral or psychological symptom: with mood disturbance
--- OUTSIDE RECORDS SUMMARY | 2025-08-26 19:58 | XMS_ITS | Patient Health Record ---
Author Organization [facility] Address [address] [place] [address] Care Team Providers Care Castings Drafter Name Role Phone Pushpa Ruvalcaba Primary Care Provider UnavailSon Cage Unavailable [phone] Allergies Allergen (clinical drug ingredient) Drug/Non Drug [...] W/U Status Risk Notes Problem Abdominal bloating (051087344) Abdominal bloating (R14.0) Active confirmed Problem Gastroesophageal reflux disease without esophagitis (204519590) Gastroesophageal reflux disease without esophagitis (K21.9) Active confirmed Plan Of Treatment Future Test Test Name Order Date COLONOSCOPY 03/14/2013 Insurance Providers Payer Name Payer Address Payer Phone Subscriber Number Group Number Insured Name Patient Relationship to Insured Coverage Start Date Coverage End Date MEDICARE OF [place] [address] [place] [id number] MORALES Self - patient is the insured MEDICAID OF [facility] [address] [place] [id number] MORALES Self - patient is the insured Medical (General) History Medical History History ICD Code GERD-EGD in 12/2001-small HH-no Sanchez's nor sig. esophagitis Tubular adenoma removed in 12/2001 Hyperlipidemia IDDM Seizure disorder Denies IA,CVA,Lung disease,renal disease Decreased hearing in both ears HTN Colonoscopy in04/2013--negative except fo r diverticulosis
--- OUTSIDE RECORDS SUMMARY | 2025-08-26 19:58 | XMS_ITS | Patient Health Record ---
Author Organization [facility] Sara Mazaley Address [address] [place] [address] Care Team Providers Care Corporate Quality Assurance Manager Name Role Phone Pushpa Ruvalcaba Primary Care Provider Unavailab Dulce Cartwright Unavailable [phone] Pushpa Ruvalcaba Unavailable Unavailable Mi Contreras Unavailable [phone] Allergies No Known Allergies Results Component Value Reference Range Notes HEMOGLOBIN A1C (GLYCOHEMOGLO BIN) Reviewed date:05/29/2025 09:43:31 AM Interpretation: Performing Lab: Notes/Report: HEMOGLOBIN A1C % (HH) 6.7 Reason For Referral Diagnosis 1 Type 2 diabetes juan ramon itus with diabetic polyneuropathy (E11.42) Referring Provider First Name Pushpa Referring Provider Last Name Peg [facility] Referred Provider Dulce Laureano Referred Address [address] [place], [place],[address], Referred Provider Specialty Podiatry Referral Priority Routine [...] Polyneuropathy due to type 2 diabetes mellitus (606018315) Type 2 diabetes mellitus with diabetic polyneuropathy (E11.42) Active confirmed Problem Foot ulcer due to type 2 diabetes mellitus (2070705350649) Type 2 diabetes mellitus with foot ulcer (E11.621) Active confirmed Problem Bilateral atherosclerosis of arteries of lower limbs (disorder) (95488602353123903 ) Atherosclerosis of sitka artery of both lower extremities, with unspecified [...] Ordered Date Performed Result Body Sit e 50014-IHQFGSD NAIL, 6 OR MORE 05/29/2025 N/A 34261-BYHI SKIN LESIONS, 2 TO 4 05/29/2025 N/A Encounters Encounter Location Date Provider Diagnosis [facility] [address] [place] [address] 05/29/2025 Dulce Black Type 2 diabetes mellitus with diabetic polyneuropathy E11.42 ; Tinea unguium B35.1 ; Atherosclerosis of sitka artery of both lower extremities, with unspecified presence of clinical manifestation I70.203 ; 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 L97.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 ; 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.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 and Type 2 diabetes mellitus with foot ulcer E11.621 [facility] [address] [place] [address] 04/24/2025 Mi Contreras [facility] [address] [place] [address] 05/29/2025 Dulce Laureano [facility] [address] [place] [address] 07/22/2025 Dulce Laureano Assessments Encounter Date Diagnosis (ICD Code) Assessment Notes Treatment Notes Treatment Clinical Notes Section Notes 05/29/2025 Tinea unguium (ICD-10 - B35.1) 05/29/2025 Type 2 diabetes mellitus with diabetic polyneuropathy (ICD-10 - E11.42) 05/29/2025 Atherosclerosis of sitka artery of both lower extremities, with unspecified [...] Treatment Pending Test Test Name Order Date 71847-VGOWPGK NAIL, 6 OR MORE 05/29/2025 60565-EDSZ SKIN LESIONS, 2 TO 4 05/29/20 25 Next Appt Details Provider Name:Dulce Laureano , 09/15/2025 10:15:00 AM, [address] [place], [address], Insurance Providers Payer Name Payer Address Payer Phone Subscriber Number Group Number Insured Name Patient Relationship to Insured Coverage Start Date Coverage End Date [facility] [address] [place] [phone] [id number] Andres Weinstein Self - patient is the insured Medical (General) History Medical History History ICD Code Diabetic High Blood Pressure Seizures Lumbar radiculopathy Congestive heart failure edema CLD
--- OUTSIDE RECORDS SUMMARY | 2025-08-26 19:58 | XMS_ITS | Clinical Summary ---
Author Organization [facility] Address [address] [place] [address] Care Team Providers Care Swimming Coach Name Role Phone Unavailable Primary Care Provider [...] Drug Screen 10/30/2024 Depression Annual Screen 10/30/2024 Qni-ASFQS-06 (3 - 2024- season) 2025 021, 02/10/2021 Imm-Influenza (#1) 2025 09/18/2020 Imm-Pneumococcal 50+ Completed 01/11/2017, 07/12/20 16 Insurance [place] MEDICA[place] Member Subscriber Plan / Payer (Ef fective 2021-Present) Name:Andres Weinstein Relation to Subscriber:Self Name:Andres Weinstein Payer ID:[id number] Type:Medicaid Address: [address] [id number] MEDICARE - [place]
--- OUTSIDE RECORDS SUMMARY | 2025-08-26 19:58 | XMS_ITS | Clinical Summary ---
Author Organization [facility] Address [address] [place] [address] Phone Care Team Providers Care Windows System Admin Name Role Phone Pushpa Ruvalcaba MD Primary [...] Medicaid [place] Care Teams Windows System Admin Relationship Specialty Start Date End Date Pushpa Ruvalcaba MD [facility] [address] PCP - General 11/09/20
== END 2025-08-26 16:22 | disposition home or self-care (01) ==
LOC: HO.HSM 15:42
PROVIDERS: PCP Internal Medicine; Referring Provider Internal Medicine; Visit Provider Registered Nurse
DX: G40.909 Epilepsy, unspecified, not intractable, without status epilepticus (principal); E11.42 Type 2 diabetes mellitus with diabetic polyneuropathy; G30.9 Alzheimer's disease, unspecified; F02.83 Dementia in other diseases classified elsewhere, unspecified severity, with mood disturbance
CPT/HCPCS: 99214

== ENCOUNTER → 2025-08-26 15:42 | Outpatient (BNVA) | payer OTHER, SELFPAY | PROVIDERS: PCP Internal Medicine; Referring Provider Internal Medicine; Visit Provider Registered Nurse | DX: E11.42 Type 2 diabetes mellitus with diabetic polyneuropathy (principal); G40.909 Epilepsy, unspecified, not intractable, without status epilepticus; G30.9 Alzheimer's disease, unspecified; F02.B3 Dementia in other diseases classified elsewhere, moderate, with mood disturbance | CPT/HCPCS: 99212 ==

== ENCOUNTER 2025-08-31 09:16 | Emergency (ER) | payer OTHER, SELFPAY ==
--- OUTSIDE RECORDS SUMMARY | 2025-05-01 03:30 | XMS_ITS ---
Author Organization [facility] Address [address] [place] [address] Care Team Providers Care Site Planner Name Role Phone Pushpa Ruvalcaba Primary Care Provider Unavailab ainsley Dulce Laureano Unavailable [phone] Pushpa Ruvalcaba Unavailable Unavailable Mi Contreras Unavailable [phone] REASON FOR VISIT no SOLIDS CONTROL TECHNICIAN ppwrk Encounters Encounter Location Date Provider Diagnosis [address] [address] 05/01/2025 Mi Contreras Plan Of Treatment Next Appt Details Provider Name:Dulce Laureano , 09/15/2025 10:15:00 AM, [address] [place], [address], Progress Notes * Andres WEINSTEIN ADOB:[birth year] (85 yo M)Acc No.[id number]:05/01/2025 Progress Notes Patient: Agatha Andres GRAHAM Provider: Timi Contreras DPM :1940 A ge:85 Y S ex:Male Date:05/01/2025 Address:[address] [place] [address] Pcp:Pushpa Ruvalcaba Subjective: * Chief Complaints: * 1 . no SOLIDS CONTROL TECHNICIAN ppwrk. * Medical History: Objective: * Vitals: Assessment: Plan: * Treatment: * Images: * The named appointment provid er may or may not be the originator of this progress note, and it is not deemed complete until electronically signed by the appointment provider. Sign off status: Pending * Provider: Timi Contreras DPM Date: 0 05/01/2025 Generated for Bill duque/Carin/Jessica on: 10/31/2024 09:49 AM EST
--- NOTE | ~2025-08-31 | XR_ITS ---
CLINICAL HISTORY: foot pain post op --- Additional Notes or Special Instructions: pt unable to hold position, family member hold 3 view right foot Comparison: CR/SR - XR FOOT 3 OR MORE VIEWS RIGHT - 06/27/25 13:45 EDT CR/SR - XR FOOT 3 OR MORE VIEWS RIGHT - 05/13/25 16:05 EDT Findings: No fractures or dislocations. 1st and 4th digit amputation. 7 mm radiodensity adjacent to the 4th metatarsal head, possibly indicating residual ossific focus. Joint space narrowing and periarticular osteophyte formation at the interphalangeal joints of the digits. Periarticular osteophyte formation at the tibiotalar, talonavicular, naviculocuneiform, and subtalar joints. Calcaneal spurring. No ankle effusion. No radiopaque foreign body. Arterial vascular calcifications are present. IMPRESSION: 1. Postsurgical sequelae as above. This document has been electronically signed by: Winston Sullivan MD on 08/31/2025 13:22:13
[2025-08-31 09:19] VITALS: BP 138/68; PULSE 92; RESP 18; TEMP 36.7; O2SAT 98; BMI 33.9
--- OUTSIDE RECORDS SUMMARY | 2025-08-31 09:49 | XMS_ITS | Clinical Summary ---
Author Organization [facility] Address [address] [place] [address] Care Team Providers Care Solar Photovoltaic Installer Name Role Phone Unavailable Primary Care Provider [...] Drug Screen 10/30/2024 Depression Annual Screen 10/30/2024 Hqq-ZECZS-17 (3 - 2024- season) 2025 021, 02/10/2021 Imm-Influenza (#1) 2025 09/18/2020 Imm-Pneumococcal 50+ Completed 01/11/2017, 07/12/20 16 Insurance [place] Member Subscriber Plan / Payer (Ef fective 2021-Present) Name:Andres Weinstein Relation to Subscriber:Self Name:Andres Weinstein Payer ID:[id number] Type:Medicaid Address: [address] [id number] MEDICARE - [place]
--- OUTSIDE RECORDS SUMMARY | 2025-08-31 09:49 | XMS_ITS | Clinical Summary ---
Author Organization [facility] Address [address] [place] [address] Phone Care Team Providers Care Wearing Apparel Folder Name Role Phone Pushpa Ruvalcaba MD Primary Care Provider [phone] Allergies Active Allergy Reactions Criticality Noted Date [...] Medicaid [place] Medicare Medicaid [place] Care Teams Wearing Apparel Folder Relationship Specialty Start Date End Date Pushpa Ruvalcaba MD [facility] [address] PCP - General 11/09/20
--- OUTSIDE RECORDS SUMMARY | 2025-08-31 09:49 | XMS_ITS | Patient Health Record ---
Author Organization [facility] Sara Mazaley Address [address] [place] [address] Care Team Providers Care Dental Services Director Name Role Phone Pushpa Ruvalcaba Primary Care Provider Unavailab Dulce Cartwright Unavailable [phone] Pushpa Ruvalcaba Unavailable Unavailable Mi Contreras Unavailable [phone] Allergies No Known Allergies Results Component Value Reference Range Notes HEMOGLOBIN A1C (GLYCOHEMOGLO BIN) Reviewed date:05/29/2025 09:43:31 AM Interpretation: Performing Lab: Notes/Report: HEMOGLOBIN A1C % (HH) 6.7 Reason For Referral Diagnosis 1 Type 2 diabetes juan ramon itus with diabetic polyneuropathy (E11.42) Referring Provider First Name Pushpa Referring Provider Last Name Peg [facility] Referred Provider Dulce Laureano Referred Address [address] [place], [place],[address], Referred Provider Specialty Podiatry Referral Priority Routine [...] Polyneuropathy due to type 2 diabetes mellitus (032945822) Type 2 diabetes mellitus with diabetic polyneuropathy (E11.42) Active confirmed Problem Foot ulcer due to type 2 diabetes mellitus (5628353628575) Type 2 diabetes mellitus with foot ulcer (E11.621) Active confirmed Problem Bilateral atherosclerosis of arteries of lower limbs (disorder) (48769627636238574 ) Atherosclerosis of augustine artery of both lower extremities, with unspecified [...] Ordered Date Performed Result Body Sit e 37690-KYHGIJX NAIL, 6 OR MORE 05/29/2025 N/A 39448-GXHU SKIN LESIONS, 2 TO 4 05/29/2025 N/A Encounters Encounter Location Date Provider Diagnosis [facility] [address] [place] [address] 05/29/2025 Dulce Black Type 2 diabetes mellitus with diabetic polyneuropathy E11.42 ; Tinea unguium B35.1 ; Atherosclerosis of augustine artery of both lower extremities, with unspecified presence of clinical manifestation I70.203 ; 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 L97.514 ; 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.514 and Type 2 diabetes mellitus with foot ulcer E11.621 [facility] [address] [place] [address] 04/24/2025 Mi Contreras [facility] [address] [place] [address] 05/29/2025 Dulce Laureano [facility] [address] [place] [address] 07/22/2025 Dulce Laureano Assessments Encounter Date Diagnosis (ICD Code) Assessment Notes Treatment Notes Treatment Clinical Notes Section Notes 05/29/2025 Tinea unguium (ICD-10 - B35.1) 05/29/2025 Type 2 diabetes mellitus with diabetic polyneuropathy (ICD-10 - E11.42) 05/29/2025 Atherosclerosis of augustine artery of both lower extremities, with unspecified [...] Treatment Pending Test Test Name Order Date 63443-UQOMHAC NAIL, 6 OR MORE 05/29/2025 84843-RRYQ SKIN LESIONS, 2 TO 4 05/29/20 25 Next Appt Details Provider Name:Dulce Laureano , 09/15/2025 10:15:00 AM, [address] [place], [address], Insurance Providers Payer Name Payer Address Payer Phone Subscriber Number Group Number Insured Name Patient Relationship to Insured Coverage Start Date Coverage End Date [facility] [address] [place] [phone] [id number] Andres Weinstein Self - patient is the insured Medical (General) History Medical History History ICD Code Diabetic High Blood Pressure Seizures Lumbar radiculopathy Congestive heart failure edema CLD
--- OUTSIDE RECORDS SUMMARY | 2025-08-31 09:49 | XMS_ITS | Patient Health Record ---
Author Organization [facility] Address [address] [place] [address] Care Team Providers Care Company Driver Name Role Phone Pushpa Ruvalcaba Primary Care Provider UnavailSon Cage Unavailable [phone] Allergies Allergen (clinical drug ingredient) Drug/Non Drug [...] W/U Status Risk Notes Problem Abdominal bloating (453982391) Abdominal bloating (R14.0) Active confirmed Problem Gastroesophageal reflux disease without esophagitis (588015123) Gastroesophageal reflux disease without esophagitis (K21.9) Active confirmed Plan Of Treatment Future Test Test Name Order Date COLONOSCOPY 03/14/2013 Insurance Providers Payer Name Payer Address Payer Phone Subscriber Number Group Number Insured Name Patient Relationship to Insured Coverage Start Date Coverage End Date MEDICARE OF [place] [address] [place] [address] [id number] MORALES Self - patient is the insured MEDICAID OF [facility] [address] [place] [id number] MORALES Self - patient is the insured Medical (General) History Medical History History ICD Code GERD-EGD in 12/2001-small HH-no Sanchez's nor sig. esophagitis Tubular adenoma removed in 12/2001 Hyperlipidemia IDDM Seizure disorder Denies OR,CVA,Lung disease,renal disease Decreased hearing in both ears HTN Colonoscopy in04/2013--negative except fo r diverticulosis
--- NOTE | 2025-08-31 09:54 | MHC.EDTECH ---
both set of blood cultures/labs draw/sent from [facility]
[2025-08-31 09:57] LABS: MANUAL DIFF FLAG NO
[2025-08-31 10:11] LABS: Alanine Aminotransferase 37 U/L (0-40); Albumin Level 2.7 g/dL (3.5-5.0); Alkaline Phosphatase 94 U/L (39-117); Anion Gap 12 (12-20); Aspartate Amino Transferase 69 U/L (5-37); Blood Urea Nitrogen 16 mg/dL (9-16); Calcium 8.5 mg/dL (8.4-10.2); Carbon Dioxide 25 mmol/L (22-29); Chloride 105 mmol/L (96-108); Creatinine Clr Calc Pharmacy 60.0; Estimated Glomerular Filt Rate > 60; Potassium 3.0 mmol/L (3.3-5.1); Sodium 139 mmol/L (135-145); Total Protein 7.1 g/dL (6.5-8.0)
[2025-08-31 10:15] LABS: Hematocrit 28.9 % (42.0-52.0); Hemoglobin 8.9 g/dl (14.0-18.0); Imm Gran Abs Auto 0.07 X10*3/uL (0.00-0.03); Imm Gran Pct Auto 0.5 % (0.0-0.4); Lymphocytes Absolute Auto 0.9 X10*3/uL (1.2-4.9); Mean Corpuscular HGB Conc 30.8 g/dl (31.0-36.0); Mean Corpuscular Hemoglobin 23.7 pg (27.0-33.0); Mean Corpuscular Volume 77.1 fL (80.0-98.0); NRBC Abs Auto 0.000 X10*3/uL (0.0-0.012); NRBC Pct Auto 0.0 /100WBC (0.0-0.2); Platelet Count 485 X10*3/uL (160-400); Red Blood Count 3.75 X10*6/uL (4.60-5.80); White Blood Count 13.3 X10*3/uL (4.8-10.8)
[2025-08-31 10:32] LABS: INTERNATIONAL NORM RATIO 1.4 (0.9-1.1); Prothrombin Time 16.2 SEC (10.9-12.4)
[2025-08-31 11:16] VITALS: BP 141/80; PULSE 97; RESP 17; TEMP 36.6; O2SAT 99
--- NOTE | 2025-08-31 11:38 | ED.GENADULT ---
HPI - General Adult General Chief complaint: Extremity Problem Stated complaint: foot pain, recent toe amputation Time Seen by Provider: 08/31/25 11:09 Source: family Mode of arrival: ambulatory Limitations: other (dementia) History of Present Illness ED Provider: HPI narrative: This is 85-year-old male with a history of dementia, on 08/04/2025 he had right great and 4th toe amputation with delayed healing, last time saw his surgeon Dr. Marques on August 19 and was discharged home with the pain medications and 10 days of antibiotics, family reports continues to have pain for the past 2 3 weeks after postop takes oxycodone, has daily VNA who stated that there was worsening surgical site for the past 3 days, there were no reports of fevers, he has follow up on Monday at the wound care. Patient is limited historian due to dementia. Related Data Home Medications ?Medication ?Instructions ?Recorded ?Confirmed aspirin 81 mg tablet,delayed 81 mg PO DAILY 08/12/20 08/22/25 release (Adult Low Dose Aspirin) rosuvastatin 40 mg tablet 40 mg PO DAILY 08/12/20 08/22/25 blood sugar diagnostic #10 ea 09/15/20 08/22/25 lancets 28 gauge (FreeStyle #100 ea 07/20/22 08/22/25 Lancets) metoprolol succinate 100 mg 100 mg PO DAILY 03/11/24 08/22/25 tablet,extended release 24 hr pregabalin 300 mg capsule 300 mg PO BID 03/11/24 08/22/25 empagliflozin 25 mg tablet 25 mg PO DAILY 06/20/24 08/22/25 (Jardiance) ezetimibe 10 mg tablet 10 mg PO DAILY 12/23/24 08/22/25 pantoprazole 20 mg tablet,delayed 20 mg PO DAILY@0630 07/31/25 08/22/25 release (Protonix) insulin aspart U-100 100 unit/mL 14 unit subcut TID 08/04/25 08/22/25 (3 mL) subcutaneous pen (Novolog FlexPen U-100 Insulin aspart) insulin glargine 100 unit/mL (3 26 unit subcut BEDTIME 08/04/25 08/22/25 mL) subcutaneous pen (Lantus Solostar U-100 Insulin) sertraline 25 mg tablet 25 mg PO DAILY PRN mood 08/04/25 08/22/25 tamsulosin 0.4 mg capsule 0.4 mg PO DAILY 08/04/25 08/22/25 Previous Rx's ?Medication ?Instructions ?Recorded furosemide 80 mg tablet 80 mg PO BID #180 tabs 12/29/20 pen needle, diabetic 32 gauge x #150 ea 02/15/2232 (BD Ultra-Fine Nicole Pen Needle) BD Nicole 2nd Gen Pen Needle 32 #200 ea 04/19/22 gauge x 32 (pen needle, diabetic) isosorbide mononitrate 60 mg 60 mg PO DAILY #90 tabs 03/07/25 tablet,extended release 24 hr alirocumab 75 mg/mL subcutaneous 75 mg subcut Q2W #2 mL 04/17/25 pen injector (Praluent Pen) cholecalciferol (vitamin D3) 25 25 mcg PO DAILY #90 caps 07/09/25 mcg (1,000 unit) capsule (Vitamin D3) clopidogrel 75 mg tablet (Plavix) 75 mg PO DAILY #90 tabs 07/23/25 oxycodone 5 mg tablet 5 mg PO Q4H PRN Pain, 08/06/25 Moderate(Pain Scale 4-6) 5 days #30 tabs cephalexin 500 mg capsule 500 mg PO BID #20 caps 08/19/25 phenytoin sodium extended 100 mg 200 mg (2 x 100 mg) PO BID 90 days 08/26/25 capsule (Dilantin Extended) #360 caps oxycodone 10 mg tablet,crush 10 mg PO BID 5 days #10 tabs 08/31/25 resistant,extended release 12 hr (OxyContin) sulfamethoxazole 800 1 tab PO BID 7 days #14 tabs 08/31/25 mg-trimethoprim 160 mg tablet (Bactrim DS) Allergies Allergy/AdvReac Type Severity Reaction Status Date / Time codeine (CODEINE) AdvReac Severe UNKNOWN Verified 08/31/25 09:20 lisinopril Allergy Intermediate choking Uncoded 08/26/25 15:51 Review of Systems Review of Systems: Yes Unobtainable due to mental condition PMFSH Past Medical History Medical History GERD (gastroesophageal reflux disease) Seizures History of recent vascular procedure (07/23/25) Mass of buttock Left buttock abscess Epidermal cyst Obesity due to excess calories CHF (congestive heart failure) Hypokalemia Diabetic nephropathy associated with type 2 diabetes mellitus CHF (congestive heart failure) Epilepsy Type 2 diabetes mellitus with hyperglycemia, with long-term current use of insulin Secondary hyperparathyroidism Diabetic neuropathy associated with type 2 diabetes mellitus CAD (coronary artery disease) (HFpEF) heart failure with preserved ejection fraction Hypertension Coronary stent patent BPH (benign prostatic hyperplasia) Dyslipidemia Neuropathy associated with endocrine disorder CKD (chronic kidney disease) Diabetes mellitus, type 2 Surgical History H/O colonoscopy Stented coronary artery Hx of cardiac cath Family History Family History Father Diabetes CVD (cardiovascular disease) Mother Diabetes CVD (cardiovascular disease) Brother Diabetes Son Thyroid disease Lung disease Psoriasis HTN (hypertension) Social History Social History Household Members: Family Housing: Apartment Are you a primary patient care director to a significant other at home: No Do you presently have visiting nurse or other home services: Yes Alcohol intake: never Patient Tobacco Use Status: Former Tobacco user Tobacco use type: Cigarette Smoked in Last 30 Days: No Use of substances other than those prescribed or required for medical reasons: No Advance Directives: No Advance Directives Information Provided: Yes Advance Directives Date on File: 05/18/21 service: No Current occupational status: retired Physical Exam ED Exam Exam: Patient is alert, not oriented, does not really answer questions Examined on the gurney Breathing comfortably, no tachypnea no wheezing no rales appreciated Examination of right lower extremities, please see pictures below, no subcutaneous emphysema, +1 dorsal edema with +1 posterior tibial and dorsalis pedis pulses Vital Signs: Vital Signs - 24 hr 08/31/25 09:19 08/31/25 11:16 Temperature 98.0 F 98 F Pulse Rate 92 97 Respiratory Rate 18 17 Blood Pressure 138/68 141/80 H Pulse Oximetry 98 99 Oxygen Delivery Method Room Air Room Air BMI result Body Mass Index 33.9 Const Other: Medical Decision Making Medical Decision Making MDM Narrative: 12:07 PM 08/31/2025 (Dr. Isaiah Jacobsen): Patient has not delayed wound healing, just finishing cephalexin, Dr.Shelli he has been covered by Dr. Calle, I sent patient's information, complaints and pictures to the surgeon, he indicated that if patient is nonfebrile to follow up with Dr. Marques and patient has in 2 days follow up appointment and wound care. As far as examination patient definitely has delayed healing, there is no subcutaneous emphysema, we will obtain x-ray to make sure there was no soft tissue gas there was no palpable crepitus, of the odor is that over the nonhealing wound but I do not see [place] purulence but I do feel that the tissue we will likely need to have some debridement at the wound care, I am going to adjust pain medications, switch over to Bactrim DS which will cover MRSA, we will discuss with family. Nonfebrile, not tachycardic, elevated leukocytosis to 13, lactic 1.2, there was no indication that the patient is septic and that would necessitate admission for IV antibiotics Differential Diagnosis Differential Diagnoses: The differential diagnosis associated with the presentation includes (Wound dehiscence, postop infection, soft tissue gas, osteomyelitis, DVT) Admission/Observation Consideration of admission/observation: Escalation of care including admission/observation considered Consult Healthcare Provider Management of the patient was discussed with: Events Traffic Controller (Dr. Calle) Lab Data MDM Lab Attestation statement: I reviewed the patient's lab results. 08/31/25 09:49 08/31/25 09:49 Labs: Lab Results 08/31/25 Range/Units 09:49 WBC 13.3 H (4.8-10.8) X10*3/uL RBC 3.75 L (4.60-5.80) X10*6/uL Hgb 8.9 L (14.0-18.0) g/dl Hct 28.9 L (42.0-52.0) % MCV 77.1 L (80.0-98.0) fL MCH 23.7 L (27.0-33.0) pg MCHC 30.8 L (31.0-36.0) g/dl RDW 17.2 H (11.0-16.0) % Plt Count 485 H (160-400) X10*3/uL MPV 9.5 (9.4-12.4) fL Immature Gran % (Auto) 0.5 H (0.0-0.4) % Neut % (Auto) 85.0 H (45-73) % Lymph % (Auto) 7.0 L (20-40) % Caswell % (Auto) 6.5 (2-11) % Eos % (Auto) 0.5 (0-4) % Baso % (Auto) 0.5 (0-2) % Lymph # (Auto) 0.9 L (1.2-4.9) X10*3/uL Caswell # (Auto) 0.9 (0.1-1.2) X10*3/uL Eos # (Auto) 0.1 (0.0-0.4) X10*3/uL Baso # (Auto) 0.1 (0.0-0.2) X10*3/uL Abs Immat Gran (auto) 0.07 H (0.00-0.03) X10*3/uL Absolute Neuts (auto) 11.3 H (2.0-8.3) x10*3/uL Absolute Nucleated RBC 0.000 (0.0-0.012) X10*3/uL Nucleated RBC % (auto) 0.0 (0.0-0.2) /100WBC PT 16.2 H (10.9-12.4) SEC INR 1.4 H (0.9-1.1) Sodium 139 (135-145) mmol/L Potassium 3.0 L (3.3-5.1) mmol/L Chloride 105 (96-108) mmol/L Carbon Dioxide 25 (22-29) mmol/L Anion Gap 12 (12-20) BUN 16 (9-16) mg/dL Creatinine 0.99 (0.5-1.4) mg/dL Estim Creat Clear Calc 60.0 Estimated GFR > 60 Random Glucose 164 H (60-115) mg/dL Lactic Acid 1.2 (0.5-2.0) mmol/L Calcium 8.5 (8.4-10.2) mg/dL Total Bilirubin 0.3 (0.0-1.0) mg/dL Direct Bilirubin 0.2 (0.0-0.5) mg/dL AST 69 H (5-37) U/L ALT 37 (0-40) U/L Alkaline Phosphatase 94 (39-117) U/L Total Protein 7.1 (6.5-8.0) g/dL Albumin 2.7 L (3.5-5.0) g/dL Independent Interpretation I performed an independent interpretation of an: Plain X-Ray (No evidence of bony destruction, no subcutaneous emphysema, significant vessel calcification) Radiology Impression Discussion of test interpretation with radiology: I have reviewed the radiologist's reading. Independent Historian Clinical information obtained from an independent historian. History obtained from or confirmed by: Other (son) External Record Review External record reviewed: Office record Prescription Management I considered prescription management with: Pain Medication and Antibiotic Chronic Conditions Patient?s care impacted by: Diabetes and Hypertension Discharge Plan Discharge Clinical Impression: Postoperative external wound disruption Patient Disposition: Home, Self-Care Additional Instructions: I recommend switching over from cephalexin you should be just about done with the course, to Bactrim DS twice a day it will cover for a different type of infection, I am also going to provide you with additional pain medications you can take Tylenol 975 mg every 6 hours around the clock and you can use oxycodone that was prescribed to you by the surgeon but I will add just a few doses of LONG ACTING OXYCODONE until wound care visit this long-acting pain medication will hopefully provide additional pain control without significantly sedating him, I spoke to Dr. Calle from General surgery who is covering for the surgeon who did the surgery, he recommended you follow up with wound care and get in touch with your surgeon Dr. Marques who is back on Monday as well and wound care clinic should be able to get in touch with him Spiking fevers, worsening issues do not hesitate to come back to the ER, otherwise resume current wound care treatment at home The new pain medication is oxycodone 10 mg tablet it is extended release you can take 1 pill in the morning after breakfast, and 1 pill before bedtime I am hoping that along with scheduled every 6 hours Tylenol you can minimize the use of 5 mg oxycodone every 6 hours, and it will have better pain control for the patient. Prescriptions: New sulfamethoxazole-trimethoprim [Bactrim DS] 800-160 mg tablet 1 tab PO BID 7 Days Qty: 14 0RF oxycodone [OxyContin] 10 mg tablet,oral only,ext.rel.12 hr 10 mg PO BID 5 Days Qty: 10 0RF Rx Instructions: Partial Fill upon patient request. No Action furosemide 80 mg tablet 80 mg PO BID Qty: 180 1RF isosorbide mononitrate 60 mg tablet extended release 24 hr 60 mg PO DAILY Qty: 90 3RF Praluent Pen 75 mg/mL pen injector 75 mg subcut Q2W Qty: 2 5RF cholecalciferol (vitamin D3) [Vitamin D3] 25 mcg (1,000 unit) capsule 25 mcg PO DAILY Qty: 90 1RF clopidogrel [Plavix] 75 mg tablet 75 mg PO DAILY Qty: 90 1RF pantoprazole [Protonix] 20 mg Tablet,Delayed Release (Dr/Ec) 20 mg PO DAILY@0630 tamsulosin 0.4 mg capsule 0.4 mg PO DAILY sertraline 25 mg tablet 25 mg PO DAILY PRN (Reason: mood) insulin glargine [Lantus Solostar U-100 Insulin] 100 unit/mL (3 mL) insulin pen 26 unit subcut BEDTIME insulin aspart U-100 [Novolog FlexPen U-100 Insulin] 100 unit/mL (3 mL) insulin pen 14 unit subcut TID oxycodone 5 mg Tablet 5 mg PO Q4H PRN (Reason: Pain, Moderate(Pain Scale 4-6)) 5 Days Qty: 30 0RF Rx Instructions: Partial Fill upon patient request. (DME) blood sugar diagnostic Strip See Rx Instructions Not Applicable TID Qty: 10 Rx Instructions: As directed aspirin [Adult Low Dose Aspirin] 81 mg tablet,delayed release (DR/EC) 81 mg PO DAILY rosuvastatin 40 mg tablet 40 mg PO DAILY (DME) pen needle, diabetic [BD Ultra-Fine Nicole Pen Needle] 32 gauge x 5/32 needle See Rx Instructions .ROUTE .MEDSUPPLY Qty: 150 11RF Rx Instructions: As directed five times a day (DME) pen needle, diabetic [BD Nicole 2nd Gen Pen Needle] 32 gauge x 5/32 needle See Rx Instructions .MEDSUPPLY Qty: 200 10RF Rx Instructions: 5 times a day (DME) lancets [FreeStyle Lancets] 28 gauge misc See Rx Instructions .ROUTE TID Qty: 100 Rx Instructions: As directed Jardiance 25 mg tablet 25 mg PO DAILY phenytoin sodium extended [Dilantin Extended] 100 mg capsule 200 mg PO BID 90 Days Qty: 360 1RF cephalexin 500 mg capsule 500 mg PO BID Qty: 20 0RF metoprolol succinate 100 mg tablet extended release 24 hr 100 mg PO DAILY pregabalin 300 mg capsule 300 mg PO BID ezetimibe 10 mg tablet 10 mg PO DAILY Print Language: [place] Citizen
--- NOTE | 2025-08-31 11:39 | PC.NURSE ---
85 year old male minimally verbal with dementia at baseline presents with family for c/o worsening post op wound to left foot. pt is a diabetic, had 3 toes (first second and fifth toe) amputated at [facility] three weeks ago. pt was DC'd home with VNA services for wound care QOD (pt last home visit was Wednesday 08/29) Pt is supposed to have follow up with [facility] wound care however the appointment is too far out, pt son Andres has attempted to move appointment up without success Assessed by MD Jacobsen Pt left foot wound bed is necrotic, foul smelling with yellow purulence present on bandages. Wound was cleasned with NS followed by xeroform kerlix and tape. VSS at this time- labs obtained 20G PIV in left medial AC court monitor applied, B/P cuff on q15m cycle Call rae within reach, all questions answered at this time- care ongoing
--- NOTE | 2025-08-31 12:23 | PC.NURSE ---
pt noted to bemoaning in pain s/p XR- MD notified, no new orders at this time.
[2025-08-31] MEDS: oxyCODONE HCl Immed Release 5 MG TABLET 10 MG PO (12:29)
[2025-08-31 12:43] VITALS: BP 104/74; PULSE 94; RESP 18; TEMP 36.8; O2SAT 100
[2025-08-31 12:57] VITALS: BP 104/74; PULSE 94; RESP 18; TEMP 36.8; O2SAT 100
== END 2025-08-31 12:57 | disposition home or self-care (01) ==
PROVIDERS: Emergency Provider Emergency Medicine; PCP Internal Medicine
DX: M79.671 Pain in right foot (principal)
CPT/HCPCS: 36415; 73630; 80053; 82248; 83605; 85025; 85610; 87040; 99284

== ENCOUNTER → 2025-08-31 12:03 | Outpatient (BNV) | payer OTHER, SELFPAY | PROVIDERS: Emergency Provider Emergency Medicine; PCP Internal Medicine; Visit Provider Radiology Diagnostic Radiology | DX: M25.571 Pain in right ankle and joints of right foot (principal); G89.18 Other acute postprocedural pain | CPT/HCPCS: 73630 ==

== ENCOUNTER 2025-09-02 15:15 | Outpatient (RCR) | payer MEDICARE, OTHER, MEDICAID, SELFPAY | END 2025-09-06 16:17 | disposition home or self-care (01) | LOC: HO.WCC 15:15 | PROVIDERS: PCP Internal Medicine; Visit Provider Surgery Surgical Oncology | DX: E11.621 Type 2 diabetes mellitus with foot ulcer (principal); L97.514 Non-pressure chronic ulcer of other part of right foot with necrosis of bone; L97.516 Non-pressure chronic ulcer of other part of right foot with bone involvement without evidence of necrosis; T87.81 Dehiscence of amputation stump; E11.69 Type 2 diabetes mellitus with other specified complication; M86.671 Other chronic osteomyelitis, right ankle and foot; E11.52 Type 2 diabetes mellitus with diabetic peripheral angiopathy with gangrene; I96 Gangrene, not elsewhere classified; I10 Essential (primary) hypertension; Z79.2 Long term (current) use of antibiotics | CPT/HCPCS: 11042; 11043; 11044; 11046; 73630; 87070; 87077; 87186; 87205; 88304; 88305; 88311; 99211; 99212; 99213 ==

== ENCOUNTER 2025-09-02 16:54 | Inpatient (IN) | payer OTHER, SELFPAY ==
--- OUTSIDE RECORDS SUMMARY | 2025-05-01 03:30 | XMS_ITS ---
Author Organization [facility] Address [address] [place] [address] Care Team Providers Care Custody Assistant Name Role Phone Pushpa Ruvalcaba Primary Care Provider Unavailab ainsley Dulce Laureano Unavailable [phone] Pushpa Ruvalcaba Unavailable Unavailable Mi Contreras Unavailable [phone] REASON FOR VISIT no WORKFLOW DEVELOPER ppwrk Encounters Encounter Location Date Provider Diagnosis [address] [address] 05/01/2025 Mi Contreras Plan Of Treatment Next Appt Details Provider Name:Dulce Laureano , 09/15/2025 10:15:00 AM, [address] [place], [address], Progress Notes * Andres WEINTSEIN ADOB:[birth year] (85 yo M)Acc No.[id number]:05/01/2025 Progress Notes Patient: Agatha Andres GRAHAM Provider: Timi Contreras DPM :1940 A ge:85 Y S ex:Male Date:05/01/2025 Address:[address] [place] [address] Pcp:Pushpa Ruvalcaba Subjective: * Chief Complaints: * 1 . no WORKFLOW DEVELOPER ppwrk. * Medical History: Objective: * Vitals: Assessment: Plan: * Treatment: * Images: * The named appointment provid er may or may not be the originator of this progress note, and it is not deemed complete until electronically signed by the appointment provider. Sign off status: Pending * Provider: Timi Contreras DPM Date: 0 05/01/2025 Generated for Bill duque/Carin/Jessica on: 11/02/2024 09:00 PM EST
--- NOTE | ~2025-09-02 | XR_ITS ---
CLINICAL HISTORY: osteomyelitis? 3 view right foot Comparison: CR - XR FOOT RT MIN 3V - 08/31/25 12:05 EST Findings: Postsurgical changes of 1st and 4th digit amputation. Degenerative changes of the interphalangeal joints. No convincing cortical erosion. Atherosclerotic calcifications. Posterior calcaneal enthesophyte. IMPRESSION: 1. No definite radiographic evidence of osteomyelitis. If there is continued clinical concern, MRI is more sensitive. This document has been electronically signed by: Kristina Sharif MD on 09/02/2025 21:59:16
--- NOTE | 2025-09-02 17:02 | ED.GENADULT ---
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 Marques, presents from wound care given concern for acute infection at the recent amputation sites. The family is unclear if the patient has had a fever. The patient complains of worsening pain of the foot. The patient and the family members do not know when the wounds have acutely worsened. Related Data Home Medications ?Medication ?Instructions ?Recorded ?Confirmed aspirin 81 mg tablet,delayed 81 mg PO DAILY 08/12/20 08/22/25 release (Adult Low Dose Aspirin) rosuvastatin 40 mg tablet 40 mg PO DAILY 08/12/20 08/22/25 blood sugar diagnostic #10 ea 09/15/20 08/22/25 lancets 28 gauge (FreeStyle #100 ea 07/20/22 08/22/25 Lancets) metoprolol succinate 100 mg 100 mg PO DAILY 03/11/24 08/22/25 tablet,extended release 24 hr pregabalin 300 mg capsule 300 mg PO BID 03/11/24 08/22/25 empagliflozin 25 mg tablet 25 mg PO DAILY 06/20/24 08/22/25 (Jardiance) ezetimibe 10 mg tablet 10 mg PO DAILY 12/23/24 08/22/25 pantoprazole 20 mg tablet,delayed 20 mg PO DAILY@0630 07/31/25 08/22/25 release (Protonix) insulin aspart U-100 100 unit/mL 14 unit subcut TID 08/04/25 08/22/25 (3 mL) subcutaneous pen (Novolog FlexPen U-100 Insulin aspart) insulin glargine 100 unit/mL (3 26 unit subcut BEDTIME 08/04/25 08/22/25 mL) subcutaneous pen (Lantus Solostar U-100 Insulin) sertraline 25 mg tablet 25 mg PO DAILY PRN mood 08/04/25 08/22/25 tamsulosin 0.4 mg capsule 0.4 mg PO DAILY 08/04/25 08/22/25 Previous Rx's ?Medication ?Instructions ?Recorded furosemide 80 mg tablet 80 mg PO BID #180 tabs 12/29/20 pen needle, diabetic 32 gauge x #150 ea 02/15/22 (BD Ultra-Fine Nicole Pen Needle) BD Nicole 2nd Gen Pen Needle 32 #200 ea 04/19/22 gauge x (pen needle, diabetic) isosorbide mononitrate 60 mg 60 mg PO DAILY #90 tabs 03/07/25 tablet,extended release 24 hr alirocumab 75 mg/mL subcutaneous 75 mg subcut Q2W #2 mL 04/17/25 pen injector (Praluent Pen) cholecalciferol (vitamin D3) 25 25 mcg PO DAILY #90 caps 07/09/25 mcg (1,000 unit) capsule (Vitamin D3) clopidogrel 75 mg tablet (Plavix) 75 mg PO DAILY #90 tabs 07/23/25 oxycodone 5 mg tablet 5 mg PO Q4H PRN Pain, 08/06/25 Moderate(Pain Scale 4-6) 5 days #30 tabs cephalexin 500 mg capsule 500 mg PO BID #20 caps 08/19/25 phenytoin sodium extended 100 mg 200 mg (2 x 100 mg) PO BID 90 days 08/26/25 capsule (Dilantin Extended) #360 caps oxycodone 10 mg tablet,crush 10 mg PO BID 5 days #10 tabs 08/31/25 resistant,extended release 12 hr (OxyContin) sulfamethoxazole 800 1 tab PO BID 7 days #14 tabs 08/31/25 mg-trimethoprim 160 mg tablet (Bactrim DS) Allergies Allergy/AdvReac Type Severity Reaction Status Date / Time codeine (CODEINE) AdvReac Severe UNKNOWN Verified 09/02/25 17:06 lisinopril Allergy Intermediate choking Uncoded 08/26/25 15:51 Review of Systems Review of Systems: Yes all other systems are reviewed and are negative Constitutional: Constitutional: Denies fatigue and Reports fever(s) Cardiovascular: Cardiovascular: Denies chest pain and Denies dyspnea Respiratory: Respiratory: Denies dyspnea Gastrointestinal: Gastrointestinal: Denies abdominal pain Musculoskeletal: Musculoskeletal: Reports arthralgias and Reports joint swelling Integumentary/Breasts: Skin/Breast: Reports non-healing lesions, Reports erythema, Reports skin swelling, Reports skin ulcer, Reports sores and Reports wounds Endocrine: Endocrine: Denies fatigue PMFSH Past Medical History Attestation statement: The following information was validated with the patient. Medical History GERD (gastroesophageal reflux disease) Seizures History of recent vascular procedure (07/23/25) Mass of buttock Left buttock abscess Epidermal cyst Obesity due to excess calories CHF (congestive heart failure) Hypokalemia Diabetic nephropathy associated with type 2 diabetes mellitus CHF (congestive heart failure) Epilepsy Type 2 diabetes mellitus with hyperglycemia, with long-term current use of insulin Secondary hyperparathyroidism Diabetic neuropathy associated with type 2 diabetes mellitus CAD (coronary artery disease) (HFpEF) heart failure with preserved ejection fraction Hypertension Coronary stent patent BPH (benign prostatic hyperplasia) Dyslipidemia Neuropathy associated with endocrine disorder CKD (chronic kidney disease) Diabetes mellitus, type 2 Surgical History H/O colonoscopy Stented coronary artery Hx of cardiac cath Family History Family History Father Diabetes CVD (cardiovascular disease) Mother Diabetes CVD (cardiovascular disease) Brother Diabetes Son Thyroid disease Lung disease Psoriasis HTN (hypertension) Social History Social History Household Members: Family Housing: Apartment Are you a primary floor care technician to a significant other at home: No Do you presently have visiting nurse or other home services: Yes Alcohol intake: never Patient Tobacco Use Status: Former Tobacco user Tobacco use type: Cigarette Advance Directives: No Advance Directives Information Provided: No Advance Directives Date on File: 05/18/21 Do you have a plan to hurt others: No Plan service: No Current occupational status: retired Physical Exam ED Vital Signs: Vital Signs - 24 hr 09/02/25 17:03 09/02/25 21:03 09/02/25 21:09 Temperature 99.1 F 101.2 F H Pulse Rate 104 H 103 H Respiratory Rate 20 15 20 Blood Pressure 144/67 H 157/69 H Pulse Oximetry 99 99 Oxygen Delivery Method Room Air Room Air BMI result Body Mass Index 34.9 Const Other: Awake Orientation/consciousness: oriented to person Resp Effort & Inspection: normal respiratory effort Cardio Other: Normal peripheral perfusion Skin Other: Warm dry no rash Neuro General: oriented to person, no focal motor deficits and CN's II-XI intact bilaterally Extrem Other: The remaining toes of the right foot are cyanotic/black, of unclear duration, see the below pictures, the foot is extremely foul smelling with active purulent drainage from multiple sites Psych Other: Cooperative flat affect Course Course Course Narrative: This is a rapid medical exam performed by Liset aRmires NEWSPAPER LIBRARY MANAGER: Additional HPI, ROS, PE not included below will be deferred to primary provider. Patient is an 85y/o M referred to the ED by the wound care center, had recent amputation of toes to right foot [address] Marques[address] [facility] reporting toes were black/ischemic today. No recent fevers. Plan: labs Reevaluation(s) Reevaluation #1: At 9:20 p.m. on September 02, a sepsis focused exam was performed, blood cultures and lactic had already been obtained, the patient just developed a fever, he is mildly tachycardic, starting vancomycin and Zosyn for suspect worsening diabetic foot infection Time: 21:20 Medications Administered Discontinued Medications Generic Name Dose Route Start Last Admin Trade Name Bryson PRN Reason Stop Dose Admin Acetaminophen 975 mg 09/02/25 21:08 09/02/25 21:20 Acetaminophen 325 Mg Tablet PO 09/02/25 21:09 975 mg ONCE ONE Administration Vancomycin HCl 1,500 mg/ 500 mls @ 333.333 mls/hr 09/02/25 20:28 09/02/25 21:41 Sodium Chloride IV 09/02/25 21:57 333.33 mls/hr ONCE ONE Administration Piperacillin Sod/Tazobactam 50 mls @ 100 mls/hr 09/02/25 20:28 09/02/25 21:43 Sod 3.375 gm/ Sodium Chloride IV 09/02/25 20:57 Infused ONCE ONE Infusion Sodium Chloride 1,000 mls @ 999 mls/hr 09/02/25 21:00 09/02/25 21:03 Ns IV 09/02/25 22:00 999 mls/hr .Q1H1M NAYA Administration Morphine Sulfate 4 mg 09/02/25 20:29 09/02/25 21:03 Morphine Sulfate 4 Mg/Ml Cartridge IVPUSH 09/02/25 20:30 4 mg ONCE ONE Administration Protocol Medical Decision Making Medical Decision Making [facility] Narrative: 85-year-old male with a history of dementia, seizure disorder on phenytoin, diabetes who is insulin-dependent, hypertension, obesity, TIARA who does not tolerate CPAP, hyperlipidemia, known coronary artery disease, heart failure with a preserved ejection fraction on echo, chronic kidney disease, 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 Marques, presents from wound care given concern for acute infection at the recent amputation sites. The family is unclear if the patient has had a fever. The patient complains of worsening pain of the foot. The patient and the family members do not know when the wounds have acutely worsened. History: Per patient in his family I have considered the following differential diagnoses: Gangrene, dry gangrene, cellulitis, purulent cellulitis, abscess, osteomyelitis Plan: The patient has met sepsis criteria shortly after I assessed him. He developed a fever. In addition to screening labs that were already obtained, including inflammatory markers, the blood cultures were ordered empirically, 1st lactic is within normal limit, we will repeat a lactic. Starting IV fluid therapy, giving Tylenol, treating with the barbara and Missy. Obtaining an x-ray of the foot. I have independently reviewed the following tests: Labs: Leukocytosis of 13.2 with left shift, stable anemia, no electrolyte abnormality, lactic 1.9, repeat lactic 1.8, CRP 22.57, ESR 113 X-ray right foot:Findings: Postsurgical changes of 1st and 4th digit amputation. Degenerative changes of the interphalangeal joints. No convincing cortical erosion. Atherosclerotic calcifications. Posterior calcaneal enthesophyte. IMPRESSION: 1. No definite radiographic evidence of osteomyelitis. If there is continued clinical concern, MRI is more sensitive. Differential Diagnosis Differential Diagnoses: The differential diagnosis associated with the presentation includes See medical decision-making Admission/Observation Consideration of admission/observation: Escalation of care including admission/observation considered Requires abdomen Consult Healthcare Provider Management of the patient was discussed with: Hospitalist and Infectious Disease Physician Vascular surgery Lab Data [facility] Lab Attestation statement: I reviewed the patient's lab results. 09/02/25 17:37 09/02/25 17:37 Labs: Lab Results 09/02/25 09/02/25 Range/Units 17:37 20:43 WBC 13.2 H (4.8-10.8) X10*3/uL RBC 3.75 L (4.60-5.80) X10*6/uL Hgb 9.2 L (14.0-18.0) g/dl Hct 28.9 L (42.0-52.0) % MCV 77.1 L (80.0-98.0) fL MCH 24.5 L (27.0-33.0) pg MCHC 31.8 (31.0-36.0) g/dl RDW 17.5 H (11.0-16.0) % Plt Count 444 H (160-400) X10*3/uL MPV 9.4 (9.4-12.4) fL Immature Gran % (Auto) 0.5 H (0.0-0.4) % Neut % (Auto) 86.4 H (45-73) % Lymph % (Auto) 5.4 L (20-40) % [place] % (Auto) 6.9 (2-11) % Eos % (Auto) 0.3 (0-4) % Baso % (Auto) 0.5 (0-2) % Lymph # (Auto) 0.7 L (1.2-4.9) X10*3/uL [place] # (Auto) 0.9 (0.1-1.2) X10*3/uL Eos # (Auto) 0.0 (0.0-0.4) X10*3/uL Baso # (Auto) 0.1 (0.0-0.2) X10*3/uL Abs Immat Gran (auto) 0.06 H (0.00-0.03) X10*3/uL Absolute Neuts (auto) 11.5 H (2.0-8.3) x10*3/uL Absolute Nucleated RBC 0.000 (0.0-0.012) X10*3/uL Nucleated RBC % (auto) 0.0 (0.0-0.2) /100WBC ESR 113 H (0-15) MM/HR Sodium 138 (135-145) mmol/L Potassium 3.3 (3.3-5.1) mmol/L Chloride 104 (96-108) mmol/L Carbon Dioxide 25 (22-29) mmol/L Anion Gap 12 (12-20) BUN 21 H (9-16) mg/dL Creatinine 1.34 (0.5-1.4) mg/dL Estim Creat Clear Calc 43.5 Estimated GFR 51 Random Glucose 219 H (60-115) mg/dL Lactic Acid 1.9 1.8 (0.5-2.0) mmol/L Calcium 8.2 L (8.4-10.2) mg/dL Total Bilirubin 0.2 (0.0-1.0) mg/dL AST 64 H (5-37) U/L ALT 30 (0-40) U/L Alkaline Phosphatase 95 (39-117) U/L C-Reactive Protein 22.57 H (< or = 0.50) mg/dL Total Protein 7.4 (6.5-8.0) g/dL Albumin 2.7 L (3.5-5.0) g/dL Radiology Impression Discussion of test interpretation with radiology: I have reviewed the radiologist's reading. Critical Care Time Critical Care Time Critical Care Time: Yes Total Critical Care Time: 35 Attestation: I Leelee Allen PA-C have personally performed 35 minutes of critical care time not including lines and procedures; sepsis, need for admission and likely surgical consult during the admission Discharge Plan Discharge Clinical Impression: Diabetic infection of right foot, Sepsis Patient Disposition: Admitted As Inpatient Print Language: [place]
[2025-09-02 17:03] VITALS: BP 144/67; PULSE 104; RESP 20; TEMP 37.3; O2SAT 99; BMI 34.9
[2025-09-02 17:46] LABS: MANUAL DIFF FLAG NO
[2025-09-02 17:47] LABS: Hematocrit 28.9 % (42.0-52.0); Hemoglobin 9.2 g/dl (14.0-18.0); Imm Gran Abs Auto 0.06 X10*3/uL (0.00-0.03); Imm Gran Pct Auto 0.5 % (0.0-0.4); Lymphocytes Absolute Auto 0.7 X10*3/uL (1.2-4.9); Mean Corpuscular HGB Conc 31.8 g/dl (31.0-36.0); Mean Corpuscular Hemoglobin 24.5 pg (27.0-33.0); Mean Corpuscular Volume 77.1 fL (80.0-98.0); NRBC Abs Auto 0.000 X10*3/uL (0.0-0.012); NRBC Pct Auto 0.0 /100WBC (0.0-0.2); Platelet Count 444 X10*3/uL (160-400); Red Blood Count 3.75 X10*6/uL (4.60-5.80); White Blood Count 13.2 X10*3/uL (4.8-10.8)
[2025-09-02 18:05] LABS: Alanine Aminotransferase 30 U/L (0-40); Albumin Level 2.7 g/dL (3.5-5.0); Alkaline Phosphatase 95 U/L (39-117); Anion Gap 12 (12-20); Aspartate Amino Transferase 64 U/L (5-37); Blood Urea Nitrogen 21 mg/dL (9-16); Calcium 8.2 mg/dL (8.4-10.2); Carbon Dioxide 25 mmol/L (22-29); Chloride 104 mmol/L (96-108); Creatinine Clr Calc Pharmacy 43.5; Estimated Glomerular Filt Rate 51; Potassium 3.3 mmol/L (3.3-5.1); Sodium 138 mmol/L (135-145); Total Protein 7.4 g/dL (6.5-8.0)
--- OUTSIDE RECORDS SUMMARY | 2025-09-02 21:01 | XMS_ITS | Patient Health Record ---
Author Organization [facility] Sara Mazaley Address [address] [place] [address] Care Team Providers Care Remelt Sugar Boiler Name Role Phone Pushpa Ruvalcaba Primary Care Provider Unavailab Dulce Cartwright Unavailable [phone] Pushpa Ruvalcaba Unavailable Unavailable Mi Contreras Unavailable [phone] Allergies No Known Allergies Results Component Value Reference Range Notes HEMOGLOBIN A1C (GLYCOHEMOGLO BIN) Reviewed date:05/29/2025 09:43:31 AM Interpretation: Performing Lab: Notes/Report: HEMOGLOBIN A1C % (HH) 6.7 Reason For Referral Diagnosis 1 Type 2 diabetes juan ramon itus with diabetic polyneuropathy (E11.42) Referring Provider First Name Pushpa Referring Provider Last Name Peg [facility] Referred Provider Dulce Laureano Referred Address [address] [place], [place],[address], Referred Provider Specialty Podiatry Referral Priority Routine [...] Polyneuropathy due to type 2 diabetes mellitus (813741727) Type 2 diabetes mellitus with diabetic polyneuropathy (E11.42) Active confirmed Problem Foot ulcer due to type 2 diabetes mellitus (1932525870532) Type 2 diabetes mellitus with foot ulcer (E11.621) Active confirmed Problem Bilateral atherosclerosis of arteries of lower limbs (disorder) (15070928269898607 ) Atherosclerosis of [place] artery of both lower extremities, with unspecified [...] Ordered Date Performed Result Body Sit e 16167-QCROZKP NAIL, 6 OR MORE 05/29/2025 N/A 19392-RNPA SKIN LESIONS, 2 TO 4 05/29/2025 N/A Encounters Encounter Location Date Provider Diagnosis [facility] [address] [place] [address] 05/29/2025 Dulce Black Type 2 diabetes mellitus with diabetic polyneuropathy E11.42 ; Tinea unguium B35.1 ; Atherosclerosis of [place] artery of both lower extremities, with unspecified presence of clinical manifestation I70.203 ; 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 L97.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 ; 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.514 and Type 2 diabetes mellitus with foot ulcer E11.621 [facility] [address] [place] [address] 04/24/2025 Mi Contreras [facility] [address] [place] [address] 05/29/2025 Dulce Laureano [facility] [address] [place] [address] 07/22/2025 Dulce Laureano Assessments Encounter Date Diagnosis (ICD Code) Assessment Notes Treatment Notes Treatment Clinical Notes Section Notes 05/29/2025 Tinea unguium (ICD-10 - B35.1) 05/29/2025 Type 2 diabetes mellitus with diabetic polyneuropathy (ICD-10 - E11.42) 05/29/2025 Atherosclerosis of [place] artery of both lower extremities, with unspecified [...] Treatment Pending Test Test Name Order Date [id number]-[id number] NAIL, 6 OR MORE 05/29/2025 05540-EOSY SKIN LESIONS, 2 TO 4 05/29/20 25 Next Appt Details Provider Name:Dulce Laureano , 09/15/2025 10:15:00 AM, [address] [place], [address], Insurance Providers Payer Name Payer Address Payer Phone Subscriber Number Group Number Insured Name Patient Relationship to Insured Coverage Start Date Coverage End Date [facility] [address] [place] Cost[place] [phone] [id number] Andres Weinstein Self - patient is the insured Medical (General) History Medical History History ICD Code Diabetic High Blood Pressure Seizures Lumbar radiculopathy Congestive heart failure edema CLD
--- OUTSIDE RECORDS SUMMARY | 2025-09-02 21:01 | XMS_ITS | Patient Health Record ---
Author Organization [facility] Address [address] [place] [address] Care Team Providers Care Scissors Grinder Name Role Phone Pushpa Ruvalcaba Primary Care Provider UnavailSon Cage Unavailable [phone] Allergies Allergen (clinical drug ingredient) Drug/Non Drug [...] W/U Status Risk Notes Problem Abdominal bloating (607232600) Abdominal bloating (R14.0) Active confirmed Problem Gastroesophageal reflux disease without esophagitis (248127704) Gastroesophageal reflux disease without esophagitis (K21.9) Active confirmed Plan Of Treatment Future Test Test Name Order Date COLONOSCOPY 03/14/2013 Insurance Providers Payer Name Payer Address Payer Phone Subscriber Number Group Number Insured Name Patient Relationship to Insured Coverage Start Date Coverage End Date MEDICARE OF [place] [address] [place] [id number] MORALES Self - patient is the insured MEDICAID OF [facility] [address] [place] [address] [id number] TC MORALES Self - patient is the insured Medical (General) History Medical History History ICD Code GERD-EGD in 12/2001-small HH-no Sanchez's nor sig. esophagitis Tubular adenoma removed in 12/2001 Hyperlipidemia IDDM Seizure disorder Denies AL,CVA,Lung disease,renal disease Decreased hearing in both ears HTN Colonoscopy in04/2013--negative except fo r diverticulosis
--- OUTSIDE RECORDS SUMMARY | 2025-09-02 21:01 | XMS_ITS | Clinical Summary ---
Author Organization [facility] Address [address] [place] [address] Care Team Providers Care Roller Leveler Operator Name Role Phone Unavailable Primary Care [...] Drug Screen 10/30/2024 Depression Annual Screen 10/30/2024 Hmt-ZEHMT-64 (3 - 2024- season) 2025 021, 02/10/2021 Imm-Influenza (#1) 2025 09/18/2020 Imm-Pneumococcal 50+ Completed 01/11/2017, 07/12/20 16 Insurance [place] Member Subscriber Plan / Payer (Ef fective 2021-Present) Name:Andres Weinstein Relation to Subscriber:Self Name:Andres Weinstein Payer ID:[id number] Type:Medicaid Address: [address] [id number] MEDICARE - [place]
--- OUTSIDE RECORDS SUMMARY | 2025-09-02 21:01 | XMS_ITS | Clinical Summary ---
Author Organization [facility] Address [address] [place] [address] Phone Care Team Providers Care Internet Marketing Specialist Name Role Phone Pushpa Ruvalcaba MD [...] Medicaid [place] Medicare Medicaid [place] Care Teams Internet Marketing Specialist Relationship Specialty Start Date End Date Pushpa Ruvalcaba MD [facility] PCP - General 11/09/20
[2025-09-02 21:03] VITALS: RESP 15
[2025-09-02 21:09] VITALS: BP 157/69; PULSE 103; RESP 20; TEMP 38.4; O2SAT 99
[2025-09-02 22:48] VITALS: BP 121/63; PULSE 91; RESP 17; O2SAT 99
--- NOTE | 2025-09-02 22:50 | PM.IMHP ---
History of Present Illness Date of Service: 09/02/25 Attending physician on admission: Nitesh Bustillo Chief Complaint: R foot wounds infected Patient is an 85-year-old Bulgarian-speaking male with a past medical history significant for seizure disorder, dementia, insulin-dependent diabetes, hypertension, obesity, TIARA (no CPAP), HLD, CAD, HFpEF and multiple amputations with Dr. Marques, who presented to the ED due to acute infection at recent amputation site of the right foot. It is unclear the patient has been experiencing a fever but was sent by wound care. He is having increased pain in the right foot with purulent and malodorous drainage. Review of Systems Review of Systems: difficult to obtain due to dementia Constitutional: Constitutional: Denies body ache(s), Denies chills, Denies fatigue, Denies fever(s) and Denies headache(s) Eyes: Eyes: Denies change in vision ENT: Denies headache(s), Denies nasal discharge and Denies sore throat Cardiovascular: Cardiovascular: Denies chest pain, Denies rapid heart rate, Denies leg edema, Denies lightheadedness and Denies dyspnea Respiratory: Respiratory: Denies chest congestion, Denies cough, Denies dyspnea and Denies wheezing Gastrointestinal: Gastrointestinal: Denies abdominal pain, Denies diarrhea, Denies nausea and Denies vomiting Genitourinary: Genitourinary: Denies dysuria, Denies urinary frequency and Denies urinary urgency Musculoskeletal: Musculoskeletal: Denies myalgias Integumentary/Breasts: Skin/Breast: Reports as per HPI Neurologic: Denies confusion and Denies headache(s) Psychiatric: Psychiatric: Denies confusion Endocrine: Endocrine: Denies fatigue Hematologic/Lymphatic: Hematologic/Lymphatic: Denies easy bleeding Allergic/Immunologic: Allergic/Immunologic: Denies wheezing [facility] Medical History GERD (gastroesophageal reflux disease) Seizures History of recent vascular procedure (07/23/25) Mass of buttock Left buttock abscess Epidermal cyst Obesity due to excess calories CHF (congestive heart failure) Hypokalemia Diabetic nephropathy associated with type 2 diabetes mellitus CHF (congestive heart failure) Epilepsy Type 2 diabetes mellitus with hyperglycemia, with long-term current use of insulin Secondary hyperparathyroidism Diabetic neuropathy associated with type 2 diabetes mellitus CAD (coronary artery disease) (HFpEF) heart failure with preserved ejection fraction Hypertension Coronary stent patent BPH (benign prostatic hyperplasia) Dyslipidemia Neuropathy associated with endocrine disorder CKD (chronic kidney disease) Diabetes mellitus, type 2 Family History Father Diabetes CVD (cardiovascular disease) Mother Diabetes CVD (cardiovascular disease) Brother Diabetes Son Thyroid disease Lung disease Psoriasis HTN (hypertension) Surgical History H/O colonoscopy Stented coronary artery Hx of cardiac cath Social History Household Members: Family Housing: Apartment Are you a primary residential child care counselor to a significant other at home: No Do you presently have visiting nurse or other home services: Yes Alcohol intake: never Patient Tobacco Use Status: Former Tobacco user Tobacco use type: Cigarette Advance Directives: No Advance Directives Information Provided: No Advance Directives Date on File: 05/18/21 Do you have a plan to hurt others: No Plan service: No Current occupational status: retired [employer] Allergies Allergy/AdvReac Type Severity Reaction Status Date / Time codeine (CODEINE) AdvReac Severe UNKNOWN Verified 09/02/25 17:06 lisinopril Allergy Intermediate choking Uncoded 08/26/25 15:51 Active Medications: Current Medications Acetaminophen (Acetaminophen 325 Mg Tablet) 975 mg PO Q6H PRN PRN Reason: Pain, Mild 1-3,fever,headache Calcium Carbonate (Calcium Carbonate 750 Mg Tab.Chew) 750 mg PO Q4H PRN PRN Reason: Heartburn Dextrose (Dextrose 50 % 25 Gm/50 Ml Syringe) 25 gm IVPUSH Q15M PRN; Protocol PRN Reason: per Hypoglycemia Standing Ord. Glucose (Glucose Gel 15 Gm Gel..Gram.) 15 gm PO Q15M PRN; Protocol PRN Reason: per Hypoglycemia Standing Ord. Heparin Sodium (Porcine) (Heparin Sodium,Porcine 5,000 Unit/Ml Vial) 5,000 unit SUBCUT Q12H [facility] Piperacillin Sod/Tazobactam (Sod 3.375 gm/ Sodium Chloride) 50 mls @ 100 mls/hr IV Q6H [facility] Insulin Human Lispro (Insulin Lispro 100 Unit/Ml 3 Ml Vial) 0 unit SUBCUT [facility]; Protocol Magnesium Hydroxide (Milk Of Magnesia 30 Ml Oral.Susp) 30 ml PO DAILY PRN PRN Reason: Constipation Melatonin (Melatonin 3 Mg Tablet) 6 mg PO BEDTIME PRN PRN Reason: Insomnia Ondansetron HCl (Ondansetron Hcl 4 Mg/2 Ml Vial) 4 mg IVPUSH Q8H PRN PRN Reason: Nausea and Vomiting Oxycodone HCl (Oxycodone Hcl Immed Release 5 Mg Tablet) 5 mg PO Q6H PRN PRN Reason: Pain, Severe (Pain Scale 7-10) Pharmacy Consult (Consult Rx Vancomycin Dosing) 1 each MISCELLANE DAILY PRN PRN Reason: Consult order Sodium Chloride (0.9 % Sodium Chloride Flush 3 Ml Syringe) 3 ml IVFLUSH [facility] Tramadol HCl (Tramadol Hcl 50 Mg Tablet) 50 mg PO Q6H PRN PRN Reason: Pain, Moderate(Pain Scale 4-6) Home Medications ?Medication ?Instructions ?Recorded ?Confirmed ?Last Taken ?Type aspirin 81 mg tablet,delayed 81 mg PO DAILY 08/12/20 08/22/25 08/03/25 History release (Adult Low Dose Aspirin) rosuvastatin 40 mg tablet 40 mg PO DAILY 08/12/20 08/22/25 08/03/25 History blood sugar diagnostic #10 ea 09/15/20 08/22/25 Unknown History lancets 28 gauge (FreeStyle #100 ea 07/20/22 08/22/25 Unknown History Lancets) metoprolol succinate 100 mg 100 mg PO DAILY 03/11/24 08/22/25 08/04/25 History tablet,extended release 24 hr pregabalin 300 mg capsule 300 mg PO BID 03/11/24 08/22/25 08/04/25 History empagliflozin 25 mg tablet 25 mg PO DAILY 06/20/24 08/22/25 08/03/25 History (Jardiance) ezetimibe 10 mg tablet 10 mg PO DAILY 12/23/24 08/22/25 08/03/25 History pantoprazole 20 mg tablet,delayed 20 mg PO DAILY@0630 07/31/25 08/22/25 08/03/25 History release (Protonix) insulin aspart U-100 100 unit/mL 14 unit subcut TID 08/04/25 08/22/2508/03/25 History (3 mL) subcutaneous pen (Novolog FlexPen U-100 Insulin aspart) insulin glargine 100 unit/mL (3 26 unit subcut BEDTIME 08/04/25 08/22/25 08/03/25 History mL) subcutaneous pen (Lantus Solostar U-100 Insulin) sertraline 25 mg tablet 25 mg PO DAILY PRN mood 08/04/25 08/22/25 Unknown History tamsulosin 0.4 mg capsule 0.4 mg PO DAILY 08/04/25 08/22/25 08/03/25 History Physical Exam Vital Signs and Narrative: Vital Signs: Last Vital Signs Temp 101.2 F H 09/02/25 21:09 Pulse 91 09/02/25 22:48 Resp 17 09/02/25 22:48 BP 121/63 09/02/25 22:48 Pulse Ox 99 09/02/25 22:48 O2 Del Method Room Air 09/02/25 22:48 BMI result Body Mass Index 34.9 General: AOx3, no acute distress, seen with safety aide Resp: CTA bilaterally CVS: S1, S2, RRR GI: +BS, NT, no distention Skin: Warm, dry Neuro: Cranial nerves II-XII grossly intact bilaterally. Motor grossly intact bilaterally Extremities: No pitting edema. necrotic toes R foot with purulent malodorous drainage R foot wounds. see photos. Psych: Appropriate affect Const: General: No confusion Orientation/consciousness: No confusion Neuro: General: No confusion Results Labs 09/02/25 17:37 09/02/25 17:37 Labs: Laboratory Results - last 24 hr 09/02/25 09/02/25 17:37 20:43 MCV 77.1 L MCH 24.5 L MCHC 31.8 RDW 17.5 H Plt Count 444 H MPV 9.4 Immature Gran % (Auto) 0.5 H Neut % (Auto) 86.4 H Lymph % (Auto) 5.4 L [place] % (Auto) 6.9 Eos % (Auto) 0.3 Baso % (Auto) 0.5 Lymph # (Auto) 0.7 L [place] # (Auto) 0.9 Eos # (Auto) 0.0 Baso # (Auto) 0.1 Abs Immat Gran (auto) 0.06 H Absolute Neuts (auto) 11.5 H Absolute Nucleated RBC 0.000 Nucleated RBC % (auto) 0.0 ESR 113 H Anion Gap 12 Estim Creat Clear Calc 43.5 Estimated GFR 51 Random Glucose 219 H Lactic Acid 1.9 1.8 Calcium 8.2 L Total Bilirubin 0.2 AST 64 H ALT 30 Alkaline Phosphatase 95 C-Reactive Protein 22.57 H Total Protein 7.4 Albumin 2.7 L Assessment and Plan (1) Sepsis: Status: Acute (2) Diabetic infection of right foot: Status: Acute (3) Status post amputation of right great toe: Status: Acute (4) Status post amputation of toe of right foot: Status: Acute Plan Patient is an 85-year-old Bulgarian-speaking male with a past medical history significant for seizure disorder, insulin-dependent diabetes, hypertension, obesity, TIARA (no CPAP), HLD, CAD, HFpEF and multiple amputations with Dr. Marques, who presented to the ED due to acute infection at recent amputation site of the right foot. sepsis secondary to infected R foot wounds from previous amputation - vancomycin and zosyn - MRI R foot to assess for osteomyelitis, XR not definitive - consult ID and vascular surgery - monitor CBC and BMP chronic stable anemia - monitor CBC seizure disorder - phenytoin IDDM - SSI - diabetic diet - lantus QHS HTN - normotensive, hold home therapies at this time TIARA - no CPAP HLD - statin and ezetimibe CAD - ASA, plavix, isosorbide HFpEF - hold lasix due to sepsis, resume after 24 hours class 2 obesity - weight loss encouraged med rec pending full code VTE prophy: heaprin Pt with sepsis secondary to infected wounds complicated by further necrosis, requiring admission for at least 2 midnights stay for IV abx and further evaluation. Quality Stroke Does the patient have a stroke diagnosis?: No VTE Prior VTE?: No VTE Risk Level:: Medical - moderate - high VTE Device Contraindication: Treatment Not Indicated VTE Drug Contraindication: N/A - Med Ordered
[2025-09-02 23:08] VITALS: BP 136/57; PULSE 84; RESP 17; O2SAT 97
--- NOTE | 2025-09-02 23:19 | PC.NURSE ---
pt son and his left to go home. phone number in chart to call w/any issues. pt is resting at this time without distress.
[2025-09-03] VITALS (8 sets, daily range): BP systolic 135–164; BP diastolic 53–81; PULSE 82–102; RESP 12–18; TEMP 36.7–37.4; O2SAT 96–100
[2025-09-03] MEDS: Lactated Ringers 1,000 ML 75 ML IVCONT (00:03)
[2025-09-03] MEDS: 0.9 % Sodium Chloride Flush 3 ML SYRINGE IVFLUSH ×3 (00:12→22:13)
--- NOTE | 2025-09-03 03:07 | PC.NURSE ---
pt sleeping with no distress at this time
[2025-09-03 04:30] LABS: MANUAL DIFF FLAG NO
[2025-09-03 04:32] LABS: Hematocrit 27.9 % (42.0-52.0); Hemoglobin 8.5 g/dl (14.0-18.0); Imm Gran Abs Auto 0.07 X10*3/uL (0.00-0.03); Imm Gran Pct Auto 0.5 % (0.0-0.4); Lymphocytes Absolute Auto 1.3 X10*3/uL (1.2-4.9); Mean Corpuscular HGB Conc 30.5 g/dl (31.0-36.0); Mean Corpuscular Hemoglobin 23.9 pg (27.0-33.0); Mean Corpuscular Volume 78.6 fL (80.0-98.0); NRBC Abs Auto 0.000 X10*3/uL (0.0-0.012); NRBC Pct Auto 0.0 /100WBC (0.0-0.2); Platelet Count 438 X10*3/uL (160-400); Red Blood Count 3.55 X10*6/uL (4.60-5.80); White Blood Count 12.7 X10*3/uL (4.8-10.8)
[2025-09-03 04:48] LABS: Anion Gap 13 (12-20); Blood Urea Nitrogen 18 mg/dL (9-16); Calcium 8.2 mg/dL (8.4-10.2); Carbon Dioxide 24 mmol/L (22-29); Chloride 109 mmol/L (96-108); Creatinine Clr Calc Pharmacy 49.8; Estimated Glomerular Filt Rate 59; Potassium 3.5 mmol/L (3.3-5.1); Sodium 142 mmol/L (135-145)
--- NOTE | 2025-09-03 05:15 | PC.NURSE ---
pt used urinal at this time. no distress noted
--- NOTE | 2025-09-03 05:38 | PC.NURSE ---
spoke w/patient to ask if needs anything for pain at this time and pt stated no will continue to monitor
[2025-09-03 07:03] LABS: Glucose, Whole Blood 154 mg/dL (60-115)
[2025-09-03] MEDS: oxyCODONE HCl Immed Release 5 MG TABLET PO ×2 (10:15→19:49)
--- NOTE | 2025-09-03 10:18 | PC.NURSE ---
pt noted to rip IV access out d/t baseline confusion. new 20gIV placed in the left hand - wrapped for safety precautions. LR continues to infuse @ 75mls/hr per provider order. abx administered per provider order. pt reporting increased pain to right foot - prn medication utilized. effectiveness pending. curtain remains open/chair alarm in place on stretcher for safety precautions. pending bed assignment. plan of care ongoing. call rae placed within reach.
--- NOTE | 2025-09-03 11:29 | PM.CNGS ---
History of Present Illness Consult details Consult date: 09/03/25 Reason for consult: wound care Narrative: Very pleasant 85-year-old gentleman presents to the hospital for nonhealing right foot. Well known to me from hospital visit in June where he underwent angiogram and subsequent toe amputations. [facility] his foot has deteriorated. He was sent into the hospital for further workup and evaluation. He underwent right peroneal plasty on 07/23/2025. His runoff at that time was peroneal and anterior tibial. On August 04 underwent right great toe and 4th toe amputation. Now presents for evaluation of right foot. Review of Systems Review of Systems: Yes all other systems are reviewed and are negative Constitutional: Constitutional: Reports no additional constitutional complaints ENT: Reports Normal hearing present Cardiovascular: Cardiovascular: Denies chest pain, Denies chest pain at rest, Denies chest pain with activity and Denies pedal edema Respiratory: Respiratory: Denies cough Gastrointestinal: Gastrointestinal: Denies abdominal pain Musculoskeletal: Musculoskeletal: Denies abnormal gait, Denies muscle cramps and Denies radiating pain into limb Integumentary/Breasts: Skin/Breast: Denies skin ulcer and Denies wounds Neurologic: Reports Normal hearing present and Denies abnormal gait Psychiatric: Psychiatric: Reports no additional psychiatric complaints PMFSH Past Medical History Medical History GERD (gastroesophageal reflux disease) Seizures History of recent vascular procedure (07/23/25) Mass of buttock Left buttock abscess Epidermal cyst Obesity due to excess calories CHF (congestive heart failure) Hypokalemia Diabetic nephropathy associated with type 2 diabetes mellitus CHF (congestive heart failure) Epilepsy Type 2 diabetes mellitus with hyperglycemia, with long-term current use of insulin Secondary hyperparathyroidism Diabetic neuropathy associated with type 2 diabetes mellitus CAD (coronary artery disease) (HFpEF) heart failure with preserved ejection fraction Hypertension Coronary stent patent BPH (benign prostatic hyperplasia) Dyslipidemia Neuropathy associated with endocrine disorder CKD (chronic kidney disease) Diabetes mellitus, type 2 Family History Family History Father Diabetes CVD (cardiovascular disease) Mother Diabetes CVD (cardiovascular disease) Brother Diabetes Son Thyroid disease Lung disease Psoriasis HTN (hypertension) Surgical History Surgical History H/O colonoscopy Stented coronary artery Hx of cardiac cath Social History Social History Household Members: Family Housing: Apartment Are you a primary foster care social worker to a significant other at home: No Do you presently have visiting nurse or other home services: Yes Alcohol intake: never Patient Tobacco Use Status: Former Tobacco user Tobacco use type: Cigarette Smoked in Last 30 Days: No Use of substances other than those prescribed or required for medical reasons: No Advance Directives: No Advance Directives Information Provided: No Advance Directives Date on File: 05/18/21 Do you have a plan to hurt others: No Plan service: No Current occupational status: retired Meds Allergies Allergy/AdvReac Type Severity Reaction Status Date / Time codeine (CODEINE) AdvReac Severe UNKNOWN Verified 09/02/25 17:06 lisinopril Allergy Intermediate choking Uncoded 08/26/25 15:51 Active Medications: Current Medications Acetaminophen (Acetaminophen 325 Mg Tablet) 975 mg PO Q6H PRN PRN Reason: Pain, Mild 1-3,fever,headache Calcium Carbonate (Calcium Carbonate 750 Mg Tab.Chew) 750 mg PO Q4H PRN PRN Reason: Heartburn Dextrose (Dextrose 50 % 25 Gm/50 Ml Syringe) 25 gm IVPUSH Q15M PRN; Protocol PRN Reason: per Hypoglycemia Standing Ord. Glucose (Glucose Gel 15 Gm Gel..Gram.) 15 gm PO Q15M PRN; Protocol PRN Reason: per Hypoglycemia Standing Ord. Heparin Sodium (Porcine) (Heparin Sodium,Porcine 5,000 Unit/Ml Vial) 5,000 unit SUBCUT Q12H REPLACED BY [facility] Last Admin: 09/03/25 10:16 Dose: 5,000 unit Piperacillin Sod/Tazobactam (Sod 3.375 gm/ Sodium Chloride) 50 mls @ 100 mls/hr IV Q6H REPLACED BY [facility] Last Infusion: 09/03/25 10:30 Dose: Infused Vancomycin HCl 1,250 mg/ (Sodium Chloride) 250 mls @ 166.667 mls/hr IV Q24H REPLACED BY [facility] Lactated Ringer's (Lr) 1,000 mls @ 75 mls/hr IVCONT .[id number] REPLACED BY [facility] Stop: 09/03/25 13:04 Last Admin: 09/03/25 00:03 Dose: 75 mls/hr Insulin Human Lispro (Insulin Lispro 100 Unit/Ml 3 Ml Vial) 0 unit SUBCUT [facility]; Protocol Last Admin: 09/03/25 07:02 Dose: 2 unit Magnesium Hydroxide (Milk Of Magnesia 30 Ml Oral.Susp) 30 ml PO DAILY PRN PRN Reason: Constipation Melatonin (Melatonin 3 Mg Tablet) 6 mg PO BEDTIME PRN PRN Reason: Insomnia Ondansetron HCl (Ondansetron Hcl 4 Mg/2 Ml Vial) 4 mg IVPUSH Q8H PRN PRN Reason: Nausea and Vomiting Oxycodone HCl (Oxycodone Hcl Immed Release 5 Mg Tablet) 5 mg PO Q6H PRN PRN Reason: Pain, Severe (Pain Scale 7-10) Last Admin: 09/03/25 10:15 Dose: 5 mg Pharmacy Consult (Consult Rx Vancomycin Dosing) 1 each MISCELLANE DAILY PRN PRN Reason: Consult order Phenytoin Sodium (Phenytoin Sodium Extended 100 Mg Capsule) 200 mg PO BID REPLACED BY [facility] Last Admin: 09/03/25 10:00 Dose: 200 mg Sodium Chloride (0.9 % Sodium Chloride Flush 3 Ml Syringe) 3 ml [facility]FLUSH [facility] Last Admin: 09/03/25 07:02 Dose: Not Given Tramadol HCl (Tramadol Hcl 50 Mg Tablet) 50 mg PO Q6H PRN PRN Reason: Pain, Moderate(Pain Scale 4-6) Home Medications ?Medication ?Instructions ?Recorded ?Confirmed ?Last Taken ?Type aspirin 81 mg tablet,delayed 81 mg PO DAILY 08/12/20 08/22/25 08/03/25 History release (Adult Low Dose Aspirin) rosuvastatin 40 mg tablet 40 mg PO DAILY 08/12/20 08/22/25 08/03/25 History blood sugar diagnostic #10 ea 09/15/20 08/22/25 Unknown History lancets 28 gauge (FreeStyle #100 ea 07/20/22 08/22/25 Unknown History Lancets) metoprolol succinate 100 mg 100 mg PO DAILY 03/11/24 08/22/25 08/04/25 History tablet,extended release 24 hr pregabalin 300 mg capsule 300 mg PO BID 03/11/24 08/22/25 08/04/25 History empagliflozin 25 mg tablet 25 mg PO DAILY 06/20/24 08/22/25 08/03/25 History (Jardiance) ezetimibe 10 mg tablet 10 mg PO DAILY 12/23/24 08/22/25 08/03/25 History pantoprazole 20 mg tablet,delayed 20 mg PO DAILY@0630 07/31/25 08/22/25 08/03/25 History release (Protonix) insulin aspart U-100 100 unit/mL 14 unit subcut TID 08/04/25 08/22/25 08/03/25 History (3 mL) subcutaneous pen (Novolog FlexPen U-100 Insulin aspart) insulin glargine 100 unit/mL (3 26 unit subcut BEDTIME 08/04/25 08/22/25 08/03/25 History mL) subcutaneous pen (Lantus Solostar U-100 Insulin) sertraline 25 mg tablet 25 mg PO DAILY PRN mood 08/04/25 08/22/25 Unknown History tamsulosin 0.4 mg capsule 0.4 mg PO DAILY 08/04/25 08/22/25 08/03/25 History benzonatate 100 mg capsule 100 mg PO TID 09/03/25 Unknown History loratadine 10 mg tablet 10 mg PO DAILY 09/03/25 Unknown History Physical Exam Vital Signs: Vital Signs: Last Vital Signs Temp 98.2 F 09/03/25 06:57 Pulse 96 09/03/25 06:57 Resp 18 09/03/25 06:57 BP 143/53 H 09/03/25 06:57 Pulse Ox 98 09/03/25 06:57 O2 Del Method Room Air 09/03/25 06:57 BMI result Body Mass Index 34.9 Const: General: cooperative, healthy appearing and comfortable Orientation/consciousness: oriented to person, oriented to place and oriented to time HEENT: Head: Yes normal to inspection Neck: Neck: Yes normal visual inspection Carotids: no bruits Chest: Chest palpation & inspection: normal inspection of the chest Resp: Effort & Inspection: normal respiratory effort and able to speak in complete sentences Auscultation: clear to auscultation bilaterally, no crackles, no rales, no rhonchi and no wheezes Cardio: Other: Right side DP signals Rate: regular rate Rhythm: regular rhythm Heart sounds: S1 normal heart sound present and S2 normal heart sound present Bruits: no carotid bruits GI: Inspection: Yes normal to inspection Skin: Wounds: no wounds Hair: normal Neuro: General: oriented to person, oriented to place and oriented to time Cranial nerves: Yes CN's II-XII intact bilaterally and Yes Normal hearing present Cognition (Neuro): normal cognition Motor exam (neuro): 5/5 motor strength present throughout Extrem: Other: 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 Gangrene dry the 2nd and 3rd toe. Fourth toe is open as well. General: No clubbing, No cyanosis and No edema Psych: Appearance: grossly normal Mental Status: mental status grossly normal Speech and movement: Normal speech and movement present Results Labs 09/03/25 04:18 09/03/25 04:18 Labs: Abnormal lab results 09/02/25 09/03/25 09/03/25 Range/Units 17:37 04:18 06:56 WBC 13.2 H 12.7 H (4.8-10.8) X10*3/uL RBC 3.75 L 3.55 L (4.60-5.80) X10*6/uL Hgb 9.2 L 8.5 L (14.0-18.0) g/dl Hct 28.9 L 27.9 L (42.0-52.0) % MCV 77.1 L 78.6 L (80.0-98.0) fL MCH 24.5 L 23.9 L (27.0-33.0) pg MCHC 30.5 L (31.0-36.0) g/dl RDW 17.5 H 17.7 H (11.0-16.0) % Plt Count 444 H 438 H (160-400) X10*3/uL Immature Gran % (Auto) 0.5 H 0.5 H (0.0-0.4) % Neut % (Auto) 86.4 H 79.7 H (45-73) % Lymph % (Auto) 5.4 L 9.9 L (20-40) % Lymph # (Auto) 0.7 L (1.2-4.9) X10*3/uL Abs Immat Gran (auto) 0.06 H 0.07 H (0.00-0.03) X10*3/uL Absolute Neuts (auto) 11.5 H 10.2 H (2.0-8.3) x10*3/uL ESR 113 H (0-15) MM/HR Chloride 109 H (96-108) mmol/L BUN 21 H 18 H (9-16) mg/dL POC Glucose 154 H (60-115) mg/dL Random Glucose 219 H 128 H (60-115) mg/dL Calcium 8.2 L 8.2 L (8.4-10.2) mg/dL AST 64 H (5-37) U/L C-Reactive Protein 22.57 H (< or = 0.50) mg/dL Albumin 2.7 L (3.5-5.0) g/dL Short CBC 09/02/25 09/03/25 Range/Units 17:37 04:18 WBC 13.2 H 12.7 H (4.8-10.8) X10*3/uL Hgb 9.2 L 8.5 L (14.0-18.0) g/dl Hct 28.9 L 27.9 L (42.0-52.0) % Plt Count 444 H 438 H (160-400) X10*3/uL BMP 09/02/25 09/03/25 17:37 04:18 Sodium 138 142 Potassium 3.3 3.5 Chloride 104 109 H Carbon Dioxide 25 24 BUN 21 H 18 H Creatinine 1.34 1.17 Calcium 8.2 L 8.2 L Liver Function 09/02/25 Range/Units 17:37 Total Bilirubin 0.2 (0.0-1.0) mg/dL AST 64 H (5-37) U/L ALT 30 (0-40) U/L Alkaline Phosphatase 95 (39-117) U/L Albumin 2.7 L (3.5-5.0) g/dL All other labs normal. Assessment and Plan (1) Diabetic infection of right foot: Status: Acute Plan In short patient has right diabetic foot infection and nonhealing amputation site. He will require right foot transmetatarsal amputation. Risks benefits complications were discussed in detail with the patient with nurse transitional present. He is agreeable to proceed. In addition I did make a phone call to his son any he is in agreement as well. We will schedule for add on case for tomorrow. Thank you for allowing us to participate in his care. Procedures Date of Service Date of Service: 09/03/25
--- NOTE | 2025-09-03 12:02 | HO.PM.IMPN ---
Subjective Subjective Date of Service: 09/03/25 Interval History: fevers ENT Ears, Nose, Mouth, and Throat: Reports Normal hearing present Neurologic Neurologic: Reports Normal hearing present Physical Exam Vital Signs: Vital Signs: Last Vital Signs Temp 98.3 F 09/03/25 11:40 Pulse 96 09/03/25 11:40 Resp 17 09/03/25 11:40 BP 150/81 H 09/03/25 11:40 Pulse Ox 98 09/03/25 11:40 O2 Del Method Room Air 09/03/25 11:40 BMI result Body Mass Index 34.9 Const: General: cooperative, healthy appearing and comfortable Orientation/consciousness: oriented to person, oriented to place and oriented to time HEENT: Head: Yes normal to inspection Neck: Neck: Yes normal visual inspection Carotids: no bruits Chest: Chest palpation & inspection: normal inspection of the chest Resp: Effort & Inspection: normal respiratory effort and able to speak in complete sentences Auscultation: clear to auscultation bilaterally, no crackles, no rales, no rhonchi and no wheezes Cardio: Other: Right side DP signals Rate: regular rate Rhythm: regular rhythm Heart sounds: S1 normal heart sound present and S2 normal heart sound present Bruits: no carotid bruits GI: Inspection: Yes normal to inspection Skin: Wounds: no wounds Hair: normal Neuro: General: oriented to person, oriented to place and oriented to time Cranial nerves: Yes CN's II-XII intact bilaterally and Yes Normal hearing present Cognition (Neuro): normal cognition Motor exam (neuro): 5/5 motor strength present throughout Extrem: Other: 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 Gangrene dry the 2nd and 3rd toe. Fourth toe is open as well. General: No clubbing, No cyanosis and No edema Psych: Appearance: grossly normal Mental Status: mental status grossly normal Speech and movement: Normal speech and movement present Objective Data Active Medications Acetaminophen (Acetaminophen 325 Mg Tablet) 975 mg PO Q6H PRN PRN Reason: Pain, Mild 1-3,fever,headache Calcium Carbonate (Calcium Carbonate 750 Mg Tab.Chew) 750 mg PO Q4H PRN PRN Reason: Heartburn Dextrose (Dextrose 50 % 25 Gm/50 Ml Syringe) 25 gm IVPUSH Q15M PRN; Protocol PRN Reason: per Hypoglycemia Standing Ord. Glucose (Glucose Gel 15 Gm Gel..Gram.) 15 gm PO Q15M PRN; Protocol PRN Reason: per Hypoglycemia Standing Ord. Heparin Sodium (Porcine) (Heparin Sodium,Porcine 5,000 Unit/Ml Vial) 5,000 unit SUBCUT Q12H [facility] Last Admin: 09/03/25 10:16 Dose: 5,000 unit Documented By: JANINE Piperacillin Sod/Tazobactam (Sod 3.375 gm/ Sodium Chloride) 50 mls @ 100 mls/hr IV Q6H [facility] Last Infusion: 09/03/25 10:30 Dose: Infused Documented By: JANINE Vancomycin HCl 1,250 mg/ (Sodium Chloride) 250 mls @ 166.667 mls/hr IV Q24H [facility] Lactated Ringer's (Lr) 1,000 mls @ 75 mls/hr IVCONT .[id number] [facility] Stop: 09/03/25 13:04 Last Admin: 09/03/25 00:03 Dose: 75 mls/hr Documented By: MARTITA Insulin Human Lispro (Insulin Lispro 100 Unit/Ml 3 Ml Vial) 0 unit SUBCUT QIDACHS [facility]; Protocol Last Admin: 09/03/25 07:02 Dose: 2 unit Documented By: JANINE Magnesium Hydroxide (Milk Of Magnesia 30 Ml Oral.Susp) 30 ml PO DAILY PRN PRN Reason: Constipation Melatonin (Melatonin 3 Mg Tablet) 6 mg PO BEDTIME PRN PRN Reason: Insomnia Ondansetron HCl (Ondansetron Hcl 4 Mg/2 Ml Vial) 4 mg IVPUSH Q8H PRN PRN Reason: Nausea and Vomiting Oxycodone HCl (Oxycodone Hcl Immed Release 5 Mg Tablet) 5 mg PO Q6H PRN PRN Reason: Pain, Severe (Pain Scale 7-10) Last Admin: 09/03/25 10:15 Dose: 5 mg Documented By: JANINE Pharmacy Consult (Consult Rx Vancomycin Dosing) 1 each MISCELLANE DAILY PRN PRN Reason: Consult order Phenytoin Sodium (Phenytoin Sodium Extended 100 Mg Capsule) 200 mg PO BID [facility] Last Admin: 09/03/25 10:00 Dose: 200 mg Documented By: JANINE Sodium Chloride (0.9 % Sodium Chloride Flush 3 Ml Syringe) 3 ml IVFLUSH QSHIFT [facility] Last Admin: 09/03/25 07:02 Dose: Not Given Documented By: JANINE Non-Admin Reason: IV Running Tramadol HCl (Tramadol Hcl 50 Mg Tablet) 50 mg PO Q6H PRN PRN Reason: Pain, Moderate(Pain Scale 4-6) Labs 09/03/25 04:18 09/03/25 04:18 Labs: Laboratory Results - last 24 hr 09/02/25 09/02/25 09/03/25 17:37 20:43 04:18 MCV 77.1 L 78.6 L MCH 24.5 L 23.9 L MCHC 31.8 30.5 L RDW 17.5 H 17.7 H Plt Count 444 H 438 H MPV 9.4 9.4 Immature Gran % (Auto) 0.5 H 0.5 H Neut % (Auto) 86.4 H 79.7 H Lymph % (Auto) 5.4 L 9.9 L [place] % (Auto) 6.9 8.4 Eos % (Auto) 0.3 1.0 Baso % (Auto) 0.5 0.5 Lymph # (Auto) 0.7 L 1.3 [place] # (Auto) 0.9 1.1 Eos # (Auto) 0.0 0.1 Baso # (Auto) 0.1 0.1 Abs Immat Gran (auto) 0.06 H 0.07 H Absolute Neuts (auto) 11.5 H 10.2 H Absolute Nucleated RBC 0.000 0.000 Nucleated RBC % (auto) 0.0 0.0 ESR 113 H Anion Gap 12 13 Estim Creat Clear Calc 43.5 49.8 Estimated GFR 51 59 POC Glucose Random Glucose 219 H 128 H Lactic Acid 1.9 1.8 Calcium 8.2 L 8.2 L Total Bilirubin 0.2 AST 64 H ALT 30 Alkaline Phosphatase 95 C-Reactive Protein 22.57 H Total Protein 7.4 Albumin 2.7 L 09/03/25 06:56 MCV MCH MCHC RDW Plt Count MPV Immature Gran % (Auto) Neut % (Auto) Lymph % (Auto) [place] % (Auto) Eos % (Auto) Baso % (Auto) Lymph # (Auto) [place] # (Auto) Eos # (Auto) Baso # (Auto) Abs Immat Gran (auto) Absolute Neuts (auto) Absolute Nucleated RBC Nucleated RBC % (auto) ESR Anion Gap Estim Creat Clear Calc Estimated GFR POC Glucose 154 H Random Glucose Lactic Acid Calcium Total Bilirubin AST ALT Alkaline Phosphatase C-Reactive Protein Total Protein Albumin Assessment and Plan (1) Diabetes mellitus, type 2: Status: Acute Plan 85M PMH epilepsy, unspecified dementia, DM, pvd, karen, hld, htn, cad, hfpef, presented with fevers and amp site drainage and erythema Sepsis due to acute osteomyelitis due to diabetes and peripheral vascular disease Vancomycin Zosyn, plan for TMA 09/04/[address] Marques follow up cultures epilepsy dilantin DM insulin cad dapl statin karen does not use cpap Epilepsy Continue phenytoin dvt porphylaxis -hep sq full code reason for continued hospitalization:surgery Quality Stroke Does the patient have a stroke diagnosis?: No VTE Prior VTE?: No VTE Risk Level:: Medical - moderate - high VTE Device Contraindication: Treatment Not Indicated VTE Drug Contraindication: N/A - Med Ordered
--- NOTE | 2025-09-03 12:14 | PHA.MEDREC ---
Addendum entered by Crow Pace PharmD 09/03/25 12:50: reviewed Original Note: Pharmacy Consult ? Medication Reconciliation Pharmacy has completed the medication reconciliation. 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 Called pt son (Frandy [phone]) and left a voicemail to call us back. Utilized Dc packet from 08/06 and claims to verify med rec and will update if pt son calls back.
[2025-09-03 12:52] LABS: Glucose, Whole Blood 150 mg/dL (60-115)
--- NOTE | 2025-09-03 15:38 | MHC.CM.PN ---
pt lives with pt is activew/hvns that comes every other day+pt goes [facility] x weekly pt has a ride home when dcd dc plan tbd home w/services vs rehab
[2025-09-03 15:49] LABS: Glucose, Whole Blood 218 mg/dL (60-115)
[2025-09-03 16:32] LABS: Glucose, Whole Blood 210 mg/dL (60-115)
[2025-09-03 19:44] LABS: Glucose, Whole Blood 122 mg/dL (60-115)
[2025-09-04] VITALS (9 sets, daily range): BP systolic 105–169; BP diastolic 53–83; PULSE 87–100; RESP 16–23; TEMP 36.5–37.6; O2SAT 96–100
[2025-09-04 05:58] LABS: MANUAL DIFF FLAG NO
[2025-09-04 06:06] LABS: Hematocrit 28.3 % (42.0-52.0); Hemoglobin 8.8 g/dl (14.0-18.0); Imm Gran Abs Auto 0.10 X10*3/uL (0.00-0.03); Imm Gran Pct Auto 0.8 % (0.0-0.4); Lymphocytes Absolute Auto 0.7 X10*3/uL (1.2-4.9); Mean Corpuscular HGB Conc 31.1 g/dl (31.0-36.0); Mean Corpuscular Hemoglobin 24.0 pg (27.0-33.0); Mean Corpuscular Volume 77.3 fL (80.0-98.0); NRBC Abs Auto 0.000 X10*3/uL (0.0-0.012); NRBC Pct Auto 0.0 /100WBC (0.0-0.2); Platelet Count 468 X10*3/uL (160-400); Red Blood Count 3.66 X10*6/uL (4.60-5.80); White Blood Count 12.4 X10*3/uL (4.8-10.8)
[2025-09-04 06:17] LABS: Anion Gap 11 (12-20); Blood Urea Nitrogen 14 mg/dL (9-16); Calcium 8.3 mg/dL (8.4-10.2); Carbon Dioxide 24 mmol/L (22-29); Chloride 109 mmol/L (96-108); Creatinine Clr Calc Pharmacy 66.2; Estimated Glomerular Filt Rate > 60; Magnesium 2.4 mg/dL (1.6-2.6); Potassium 3.2 mmol/L (3.3-5.1); Sodium 141 mmol/L (135-145)
[2025-09-04] MEDS: 0.9 % Sodium Chloride Flush 3 ML SYRINGE IVFLUSH ×3 (07:30→20:58)
[2025-09-04 07:40] LABS: Glucose, Whole Blood 128 mg/dL (60-115)
[2025-09-04] MEDS: Metoprolol Succinate ER 100 MG TAB.ER.24H PO (09:32)
--- NOTE | 2025-09-04 10:34 | PC.NURSE ---
jayden to administer ASA,Plavix and Heparin sc per Dr. Marques
[2025-09-04] MEDS: Aspirin Enteric Coated 81 MG TABLET.DR PO ×2 (10:38→10:39)
--- NOTE | 2025-09-04 11:41 | HO.PM.IMPN ---
Subjective Subjective Date of Service: 09/04/25 Interval History: no new complaints ENT Ears, Nose, Mouth, and Throat: Reports Normal hearing present Neurologic Neurologic: Reports Normal hearing present Physical Exam Vital Signs: Vital Signs: Last Vital Signs Temp 98.0 F 09/04/25 08:00 Pulse 91 09/04/25 09:32 Resp 16 09/04/25 08:00 BP 154/70 H 09/04/25 09:31 Pulse Ox 96 09/04/25 08:00 O2 Del Method Room Air 09/04/25 08:00 BMI result Body Mass Index 34.9 Const: General: cooperative, healthy appearing and comfortable Orientation/consciousness: oriented to person, oriented to place and oriented to time HEENT: Head: Yes normal to inspection Neck: Neck: Yes normal visual inspection Carotids: no bruits Chest: Chest palpation & inspection: normal inspection of the chest Resp: Effort & Inspection: normal respiratory effort and able to speak in complete sentences Auscultation: clear to auscultation bilaterally, no crackles, no rales, no rhonchi and no wheezes Cardio: Other: Right side DP signals Rate: regular rate Rhythm: regular rhythm Heart sounds: S1 normal heart sound present and S2 normal heart sound present Bruits: no carotid bruits GI: Inspection: Yes normal to inspection Skin: Wounds: no wounds Hair: normal Neuro: General: oriented to person, oriented to place and oriented to time Cranial nerves: Yes CN's II-XII intact bilaterally and Yes Normal hearing present Cognition (Neuro): normal cognition Motor exam (neuro): 5/5 motor strength present throughout Extrem: Other: 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 Gangrene dry the 2nd and 3rd toe. Fourth toe is open as well. General: No clubbing, No cyanosis and No edema Psych: Appearance: grossly normal Mental Status: mental status grossly normal Speech and movement: Normal speech and movement present Objective Data Active Medications Acetaminophen (Acetaminophen 325 Mg Tablet) 975 mg PO Q6H PRN PRN Reason: Pain, Mild 1-3,fever,headache Aspirin (Aspirin Enteric Coated 81 Mg Tablet.) 81 mg PO DAILY [facility] Last Admin: 09/04/25 10:38 Dose: 81 mg Documented By: BETTY Atorvastatin Calcium (Atorvastatin Calcium 80 Mg Tablet) 80 mg PO DAILY [facility] Last Admin: 09/04/25 09:31 Dose: 80 mg Documented By: BETTY Benzonatate (Benzonatate 100 Mg Capsule) 100 mg PO TID [facility] Last Admin: 09/04/25 09:31 Dose: 100 mg Documented By: BETTY Calcium Carbonate (Calcium Carbonate 750 Mg Tab.Chew) 750 mg PO Q4H PRN PRN Reason: Heartburn Clopidogrel Bisulfate (Clopidogrel Bisulfate 75 Mg Tablet) 75 mg PO DAILY [facility] Last Admin: 09/04/25 10:38 Dose: 75 mg Documented By: BETTY Dextrose (Dextrose 50 % 25 Gm/50 Ml Syringe) 25 gm IVPUSH Q15M PRN; Protocol PRN Reason: per Hypoglycemia Standing Ord. Furosemide (Furosemide 40 Mg Tablet) 80 mg PO BIDWM [facility]; Protocol Last Admin: 09/04/25 09:32 Dose: 80 mg Documented By: BETTY Glucose (Glucose Gel 15 Gm Gel..Gram.) 15 gm PO Q15M PRN; Protocol PRN Reason: per Hypoglycemia Standing Ord. Heparin Sodium (Porcine) (Heparin Sodium,Porcine 5,000 Unit/Ml Vial) 5,000 unit SUBCUT Q12H [facility] Last Admin: 09/04/25 10:39 Dose: 5,000 unit Documented By: BETTY Piperacillin Sod/Tazobactam (Sod 3.375 gm/ Sodium Chloride) 50 mls @ 100 mls/hr IV Q6H [facility] Last Infusion: 09/04/25 10:27 Dose: Infused Documented By: BETTY Vancomycin HCl 1,250 mg/ (Sodium Chloride) 250 mls @ 166.667 mls/hr IV Q24H [facility] Last Infusion: 09/03/25 22:07 Dose: Infused Documented By: VIKTORIA Insulin Human Lispro (Insulin Lispro 100 Unit/Ml 3 Ml Vial) 0 unit SUBCUT QIDACHS [facility]; Protocol Last Admin: 09/04/25 07:41 Dose: Not Given Documented By: BETTY Non-Admin Reason: No Insulin Coverage Isosorbide Mononitrate (Isosorbide Mononitrate 60 Mg Tab.Er.24h) 60 mg PO DAILY [facility]; Protocol Last Admin: 09/04/25 09:31 Dose: 60 mg Documented By: BETTY Loratadine (Loratadine 10 Mg Tablet) 10 mg PO DAILY [facility] Last Admin: 09/04/25 09:31 Dose: 10 mg Documented By: BETTY Magnesium Hydroxide (Milk Of Magnesia 30 Ml Oral.Susp) 30 ml PO DAILY PRN PRN Reason: Constipation Melatonin (Melatonin 3 Mg Tablet) 6 mg PO BEDTIME PRN PRN Reason: Insomnia Last Admin: 09/03/25 19:49 Dose: 6 mg Documented By: VIKTORIA Metoprolol Succinate (Metoprolol Succinate Er 100 Mg Tab.Er.24h) 100 mg PO DAILY [facility]; Protocol Last Admin: 09/04/25 09:32 Dose: 100 mg Documented By: BETTY Ondansetron HCl (Ondansetron Hcl 4 Mg/2 Ml Vial) 4 mg IVPUSH Q8H PRN PRN Reason: Nausea and Vomiting Oxycodone HCl (Oxycodone Hcl Immed Release 5 Mg Tablet) 5 mg PO Q4H PRN PRN Reason: Pain, Moderate(Pain Scale 4-6) Last Admin: 09/03/25 19:49 Dose: 5 mg Documented By: VIKTORIA Pharmacy Consult (Consult Rx Vancomycin Dosing) 1 each MISCELLANE DAILY PRN PRN Reason: Consult order Phenytoin Sodium (Phenytoin Sodium Extended 100 Mg Capsule) 200 mg PO BID [facility] Last Admin: 09/04/25 09:31 Dose: 200 mg Documented By: BETTY Pregabalin (Pregabalin 150 Mg Capsule) 300 mg PO BID [facility] Last Admin: 09/04/25 09:29 Dose: 300 mg Documented By: BETTY Sodium Chloride (0.9 % Sodium Chloride Flush 3 Ml Syringe) [facility] Last Admin: 09/04/25 07:30 Dose: 3 ml Documented By: EBTTY Tamsulosin HCl (Tamsulosin Hcl 0.4 Mg Capsule) 0.4 mg PO DAILY [facility] Last Admin: 09/04/25 09:30 Dose: 0.4 mg Documented By: BETTY Tramadol HCl (Tramadol Hcl 50 Mg Tablet) 50 mg PO Q6H PRN PRN Reason: Pain, Moderate(Pain Scale 4-6) Vitamin D (Cholecalciferol (Vitamin D3) 25 Mcg Tablet) 25 mcg PO DAILY [facility] Last Admin: 09/04/25 09:29 Dose: 25 mcg Documented By: BETTY Labs 09/04/25 05:49 09/04/25 05:49 Labs: Laboratory Results - last 24 hr 09/03/25 09/03/25 09/03/25 12:49 15:32 16:28 MCV MCH MCHC RDW Plt Count MPV Immature Gran % (Auto) Neut % (Auto) Lymph % (Auto) [place] % (Auto) Eos % (Auto) Baso % (Auto) Lymph # (Auto) [place] # (Auto) Eos # (Auto) Baso # (Auto) Abs Immat Gran (auto) Absolute Neuts (auto) Absolute Nucleated RBC Nucleated RBC % (auto) Anion Gap Estim Creat Clear Calc Estimated GFR POC Glucose 150 H 218 H 210 H Random Glucose Calcium Magnesium 09/03/25 09/04/25 09/04/25 19:35 05:49 07:30 MCV 77.3 L MCH 24.0 L MCHC 31.1 RDW 17.7 H Plt Count 468 H MPV 9.3 L Immature Gran % (Auto) 0.8 H Neut % (Auto) 85.7 H Lymph % (Auto) 5.4 L [place] % (Auto) 5.6 Eos % (Auto) 2.0 Baso % (Auto) 0.5 Lymph # (Auto) 0.7 L [place] # (Auto) 0.7 Eos # (Auto) 0.3 Baso # (Auto) 0.1 Abs Immat Gran (auto) 0.10 H Absolute Neuts (auto) 10.6 H Absolute Nucleated RBC 0.000 Nucleated RBC % (auto) 0.0 Anion Gap 11 L Estim Creat Clear Calc 66.2 Estimated GFR > 60 POC Glucose 122 H 128 H Random Glucose 119 H Calcium 8.3 L Magnesium 2.4 Microbiology Microbiology Results: Microbiology 09/02/25 17:37 Blood Culture - Preliminary Blood - Venous No growth after 24 hours. 09/02/25 17:37 Blood Culture - Preliminary Blood - Venous No growth after 24 hours. Assessment and Plan (1) Diabetes mellitus, type 2: Status: Acute Plan 85M PMH epilepsy, unspecified dementia, DM, pvd, karen, hld, htn, cad, hfpef, presented with fevers and amp site drainage and erythema Sepsis due to acute osteomyelitis due to diabetes and peripheral vascular disease Vancomycin Zosyn, plan for TMA today 09/04/[address] Marques follow up cultures epilepsy dilantin DM insulin cad dapl statin karen does not use cpap Epilepsy Continue phenytoin dvt porphylaxis -hep sq full code reason for continued hospitalization:surgery Quality Stroke Does the patient have a stroke diagnosis?: No VTE Prior VTE?: No VTE Risk Level:: Medical - moderate - high VTE Device Contraindication: Treatment Not Indicated VTE Drug Contraindication: N/A - Med Ordered
[2025-09-04 11:57] LABS: Glucose, Whole Blood 127 mg/dL (60-115)
--- NOTE | 2025-09-04 13:12 | MHC.CM.PN ---
Patient awaiting surgery. Daughter in law, Radha, at bedside. Family is aware patient will likely have a PT eval after surgery to assist w/ dispo. Family is open to STR if recommended, but does not want patient to return to [place]. Referral started. CM will continue to follow.
--- NOTE | 2025-09-04 14:11 | PC.NURSE ---
K 3.2 Dr. Nieto made aware
[2025-09-04] MEDS: Dextrose 5 % and 0.45 % NaCl 1,000 ML 50 ML IVCONT (14:15)
[2025-09-04 16:18] LABS: Glucose, Whole Blood 135 mg/dL (60-115)
--- NOTE | 2025-09-04 16:50 | HO.ANESPROP2 ---
Documented by User: Gabriela Hernandez NP 09/03/25 09:23 HPI - Anesthesia Eval Consult details Narrative: 85 yr old male for right Foot Debridement Bone s/p toe amp with MAC 08/05/25 [place] [facility] [place] CAD s/p NSTEMI, LAD stenting 2017 and CHF. Stable at 03/2025 office visit for routine f/u. PMFSH Active Problems Active Problems: All Active Problems Sepsis (Acute) Diabetic infection of right foot (Acute) Alzheimer dementia (Acute) Diabetic peripheral neuropathy (Acute) Seizure disorder (Acute) Status post amputation of toe of right foot (Acute) Status post amputation of right great toe (Acute) Chest discomfort (Acute) Urinary urgency (Acute) TIARA (obstructive sleep apnea) (Acute) First degree atrioventricular block (Acute) Type 2 diabetes mellitus with unspecified complications (Acute) Essential hypertension (Acute) Atherosclerotic cardiovascular disease (Acute) Chronic heart failure with preserved ejection fraction (HFpEF) (Acute) Palpitation (Acute) Mass of buttock (Acute) Left buttock abscess (Acute) Epidermal cyst (Acute) Obesity due to excess calories (Acute) Hypokalemia (Acute) BPH (benign prostatic hyperplasia) (Acute) Diabetic nephropathy associated with type 2 diabetes mellitus (Acute) Type 2 diabetes mellitus with hyperglycemia, with long-term current use of insulin (Acute) Dyslipidemia (Acute) Hypertension (Acute) Secondary hyperparathyroidism (Acute) Diabetic neuropathy associated with type 2 diabetes mellitus (Acute) CKD (chronic kidney disease) (Acute) Diabetes mellitus, type 2 (Acute) Stented coronary artery (Acute) CAD (coronary artery disease) (Acute) (HFpEF) heart failure with preserved ejection fraction (Acute) Past Medical History Medical History GERD (gastroesophageal reflux disease) Seizures History of recent vascular procedure (07/23/25) Mass of buttock Left buttock abscess Epidermal cyst Obesity due to excess calories CHF (congestive heart failure) Hypokalemia Diabetic nephropathy associated with type 2 diabetes mellitus CHF (congestive heart failure) Epilepsy Type 2 diabetes mellitus with hyperglycemia, with long-term current use of insulin Secondary hyperparathyroidism Diabetic neuropathy associated with type 2 diabetes mellitus CAD (coronary artery disease) (HFpEF) heart failure with preserved ejection fraction Hypertension Coronary stent patent BPH (benign prostatic hyperplasia) Dyslipidemia Neuropathy associated with endocrine disorder CKD (chronic kidney disease) Diabetes mellitus, type 2 Family History Family History Father Diabetes CVD (cardiovascular disease) Mother Diabetes CVD (cardiovascular disease) Brother Diabetes Son Thyroid disease Lung disease Psoriasis HTN (hypertension) Family history of problems with anesthesia: No Surgical History Surgical History H/O colonoscopy Stented coronary artery Hx of cardiac cath History of Problems with Anesthesia: No Social History Social History Household Members: Spouse Housing: Apartment Are you a primary hospice home care coordinator to a significant other at home: No Alcohol intake: never Patient Tobacco Use Status: Former Tobacco user Tobacco use type: Cigarette Advance Directives Date on File: 05/18/21 service: No Current occupational status: retired Meds Allergies Allergy/AdvReac Type Severity Reaction Status Date / Time codeine (CODEINE) AdvReac Severe UNKNOWN Verified 09/02/25 17:06 lisinopril Allergy Intermediate choking Uncoded 08/26/25 15:51 Active Medications: Current Medications Acetaminophen (Acetaminophen 325 Mg Tablet) 975 mg PO Q6H PRN PRN Reason: Pain, Mild 1-3,fever,headache Calcium Carbonate (Calcium Carbonate 750 Mg Tab.Chew) 750 mg PO Q4H PRN PRN Reason: Heartburn Dextrose (Dextrose 50 % 25 Gm/50 Ml Syringe) 25 gm IVPUSH Q15M PRN; Protocol PRN Reason: per Hypoglycemia Standing Ord. Glucose (Glucose Gel 15 Gm Gel..Gram.) 15 gm PO Q15M PRN; Protocol PRN Reason: per Hypoglycemia Standing Ord. Heparin Sodium (Porcine) (Heparin Sodium,Porcine 5,000 Unit/Ml Vial) 5,000 unit SUBCUT Q12H NAYA Last Admin: 09/02/25 23:27 Dose: 5,000 unit Piperacillin Sod/Tazobactam (Sod 3.375 gm/ Sodium Chloride) 50 mls @ 100 mls/hr IV Q6H NAYA Last Infusion: 09/03/25 04:12 Dose: Infused Vancomycin HCl 1,250 mg/ (Sodium Chloride) 250 mls @ 166.667 mls/hr IV Q24H NAYA Lactated Ringer's (Lr) 1,000 mls @ 75 mls/hr IVCONT .[id number] [facility] Stop: 09/03/25 13:04 Last Admin: 09/03/25 00:03 Dose: 75 mls/hr Insulin Human Lispro (Insulin Lispro 100 Unit/Ml 3 Ml Vial) 0 unit SUBCUT QIDACHS [facility]; Protocol Last Admin: 09/03/25 07:02 Dose: 2 unit Magnesium Hydroxide (Milk Of Magnesia 30 Ml Oral.Susp) 30 ml PO DAILY PRN PRN Reason: Constipation Melatonin (Melatonin 3 Mg Tablet) 6 mg PO BEDTIME PRN PRN Reason: Insomnia Ondansetron HCl (Ondansetron Hcl 4 Mg/2 Ml Vial) 4 mg IVPUSH Q8H PRN PRN Reason: Nausea and Vomiting Oxycodone HCl (Oxycodone Hcl Immed Release 5 Mg Tablet) 5 mg PO Q6H PRN PRN Reason: Pain, Severe (Pain Scale 7-10) Pharmacy Consult (Consult Rx Vancomycin Dosing) 1 each MISCELLANE DAILY PRN PRN Reason: Consult order Phenytoin Sodium (Phenytoin Sodium Extended 100 Mg Capsule) 200 mg PO BID [facility] Last Admin: 09/03/25 00:10 Dose: 200 mg Sodium Chloride (0.9 % Sodium Chloride Flush 3 Ml Syringe) 3 ml [facility]USH [facility] Last Admin: 09/03/25 07:02 Dose: Not Given Tramadol HCl (Tramadol Hcl 50 Mg Tablet) 50 mg PO Q6H PRN PRN Reason: Pain, Moderate(Pain Scale 4-6) Home Medications ?Medication ?Instructions ?Recorded ?Confirmed ?Last Taken ?Type aspirin 81 mg tablet,delayed 81 mg PO DAILY 08/12/20 09/03/25 08/03/25 History release (Adult Low Dose Aspirin) rosuvastatin 40 mg tablet 40 mg PO DAILY 08/12/20 09/03/25 08/03/25 History blood sugar diagnostic #10 ea 09/15/20 08/22/25 Unknown History lancets 28 gauge (FreeStyle #100 ea 07/20/22 08/22/25 Unknown History Lancets) metoprolol succinate 100 mg 100 mg PO DAILY 03/11/24 09/03/25 08/04/25 History tablet,extended release 24 hr pregabalin 300 mg capsule 300 mg PO BID 03/11/24 09/03/25 08/04/25 History empagliflozin 25 mg tablet 25 mg PO DAILY 06/20/24 09/03/25 08/03/25 History (Jardiance) ezetimibe 10 mg tablet 10 mg PO DAILY 12/23/24 09/03/25 08/03/25 History pantoprazole 20 mg tablet,delayed 20 mg PO DAILY@0630 07/31/25 09/03/25 08/03/25 History release (Protonix) insulin aspart U-100 100 unit/mL 14 unit subcut TID 08/04/25 09/03/25 08/03/25 History (3 mL) subcutaneous pen (Novolog FlexPen U-100 Insulin aspart) insulin glargine 100 unit/mL (3 26 unit subcut BEDTIME 08/04/25 09/03/25 08/03/25 History mL) subcutaneous pen (Lantus Solostar U-100 Insulin) sertraline 25 mg tablet 25 mg PO DAILY PRN mood 08/04/25 09/03/25 Unknown History tamsulosin 0.4 mg capsule 0.4 mg PO DAILY 08/04/25 09/03/25 08/03/25 History benzonatate 100 mg capsule 100 mg PO TID 09/03/25 09/03/25 Unknown History loratadine 10 mg tablet 10 mg PO DAILY 09/03/25 09/03/25 Unknown History Exam Height,Weight and Vital Signs: Height 5 ft 5 in Weight 95.254 kg Last Vital Signs Temp 98.2 F 09/03/25 06:57 Pulse 96 09/03/25 06:57 Resp 18 09/03/25 06:57 BP 143/53 H 09/03/25 06:57 Pulse Ox 98 09/03/25 06:57 O2 Del Method Room Air 09/03/25 06:57 Pertinent Lab Results Pertinent Lab Results: Laboratory Tests 09/02/25 09/02/25 09/03/25 17:37 20:43 04:18 WBC 13.2 H 12.7 H RBC 3.75 L 3.55 L Hgb 9.2 L 8.5 L Hct 28.9 L 27.9 L MCV 77.1 L 78.6 L MCH 24.5 L 23.9 L MCHC 31.8 30.5 L RDW 17.5 H 17.7 H Plt Count 444 H 438 H MPV 9.4 9.4 Immature Gran % (Auto) 0.5 H 0.5 H Neut % (Auto) 86.4 H 79.7 H Lymph % (Auto) 5.4 L 9.9 L [place] % (Auto) 6.9 8.4 Eos % (Auto) 0.3 1.0 Baso % (Auto) 0.5 0.5 Lymph # (Auto) 0.7 L 1.3 [place] # (Auto) 0.9 1.1 Eos # (Auto) 0.0 0.1 Baso # (Auto) 0.1 0.1 Abs Immat Gran (auto) 0.06 H 0.07 H Absolute Neuts (auto) 11.5 H 10.2 H Absolute Nucleated RBC 0.000 0.000 Nucleated RBC % (auto) 0.0 0.0 ESR 113 H Sodium 138 142 Potassium 3.3 3.5 Chloride 104 109 H Carbon Dioxide 25 24 Anion Gap 12 13 BUN 21 H 18 H Creatinine 1.34 1.17 Estim Creat Clear Calc 43.5 49.8 Estimated GFR 51 59 POC Glucose Random Glucose 219 H 128 H Lactic Acid 1.9 1.8 Calcium 8.2 L 8.2 L Total Bilirubin 0.2 AST 64 H ALT 30 Alkaline Phosphatase 95 C-Reactive Protein 22.57 H Total Protein 7.4 Albumin 2.7 L 09/03/25 06:56 WBC RBC Hgb Hct MCV MCH MCHC RDW Plt Count MPV Immature Gran % (Auto) Neut % (Auto) Lymph % (Auto) [place] % (Auto) Eos % (Auto) Baso % (Auto) Lymph # (Auto) [place] # (Auto) Eos # (Auto) Baso # (Auto) Abs Immat Gran (auto) Absolute Neuts (auto) Absolute Nucleated RBC Nucleated RBC % (auto) ESR Sodium Potassium Chloride Carbon Dioxide Anion Gap BUN Creatinine Estim Creat Clear Calc Estimated GFR POC Glucose 154 H Random Glucose Lactic Acid Calcium Total Bilirubin AST ALT Alkaline Phosphatase C-Reactive Protein Total Protein Albumin Narrative Narrative: EKG 10/2024 Vent. Rate : 67 BPM Atrial Rate : * BPM P-R Int : * ms QRS Dur : 92 ms QT Int : 414 ms P-R-T Axes : * 2 55 degrees QTcB Int : 437 ms Normal sinus rhythm with 1st degree A-V block Otherwise normal ECG When compared with ECG of 14-Aug-2024 04:32, No significant changes seen ECHO 2023 Conclusions: - Normal left ventricular cavity size. There is moderately increased left ventricular wall thickness. The left ventricular systolic function is hyperdynamic. The visually estimated ejection fraction is >70%. - Normal right ventricular cavity size and systolic function. - There is mild dilatation of the ascending aorta measuring 4.00 cm. NM cardiolite stress test 2023 Impression: 1. Normal myocardial perfusion imaging 2. Gated LVEF is 58% 3. Transient ischemic dilatation not present Stress EKG is suggestive of ischemia Cath with ROYN to LAD 2017, also with ostial nondominant 8% RCA stenosis, distal Cx 70% stenosis.. Repeat cath 05/2019 for unstable angina, NSTEMI shows similar anatomy, patent stent Assessment and Plan Final Anesthetic Review Family History of Problems with Anesthesia: No History of Problems with Anesthesia: No Documented by User: Audra Prasad DO 09/04/25 16:51 [facility] Past Medical History Medical History GERD (gastroesophageal reflux disease) Seizures History of recent vascular procedure (07/23/25) Mass of buttock Left buttock abscess Epidermal cyst Obesity due to excess calories CHF (congestive heart failure) Hypokalemia Diabetic nephropathy associated with type 2 diabetes mellitus CHF (congestive heart failure) Epilepsy Type 2 diabetes mellitus with hyperglycemia, with long-term current use of insulin Secondary hyperparathyroidism Diabetic neuropathy associated with type 2 diabetes mellitus CAD (coronary artery disease) (HFpEF) heart failure with preserved ejection fraction Hypertension Coronary stent patent BPH (benign prostatic hyperplasia) Dyslipidemia Neuropathy associated with endocrine disorder CKD (chronic kidney disease) Diabetes mellitus, type 2 Family History Family History Father Diabetes CVD (cardiovascular disease) Mother Diabetes CVD (cardiovascular disease) Brother Diabetes Son Thyroid disease Lung disease Psoriasis HTN (hypertension) Family history of problems with anesthesia: No Surgical History Surgical History H/O colonoscopy Stented coronary artery Hx of cardiac cath History of Problems with Anesthesia: No Social History Social History Household Members: Spouse Housing: Apartment Are you a primary hospice home care coordinator to a significant other at home: No Alcohol intake: never Patient Tobacco Use Status: Former Tobacco user Tobacco use type: Cigarette Advance Directives Date on File: 05/18/21 service: No Current occupational status: retired [employer] Allergies Allergy/AdvReac Type Severity Reaction Status Date / Time codeine (CODEINE) AdvReac Severe UNKNOWN Verified 09/02/25 17:06 lisinopril Allergy Intermediate choking Uncoded 08/26/25 15:51 Home Medications ?Medication ?Instructions ?Recorded ?Confirmed ?Last Taken ?Type aspirin 81 mg tablet,delayed 81 mg PO DAILY 08/12/20 09/03/25 08/03/25 History release (Adult Low Dose Aspirin) rosuvastatin 40 mg tablet 40 mg PO DAILY 08/12/20 09/03/25 08/03/25 History blood sugar diagnostic #10 ea 09/15/20 08/22/25 Unknown History lancets 28 gauge (FreeStyle #100 ea 07/20/22 08/22/25 Unknown History Lancets) metoprolol succinate 100 mg 100 mg PO DAILY 03/11/24 09/03/25 08/04/25 History tablet,extended release 24 hr pregabalin 300 mg capsule 300 mg PO BID 03/11/24 09/03/25 08/04/25 History empagliflozin 25 mg tablet 25 mg PO DAILY 06/20/24 09/03/25 08/03/25 History (Jardiance) ezetimibe 10 mg tablet 10 mg PO DAILY 12/23/24 09/03/25 08/03/25 History pantoprazole 20 mg tablet,delayed 20 mg PO DAILY@0630 07/31/25 09/03/25 08/03/25 History release (Protonix) insulin aspart U-100 100 unit/mL 14 unit subcut TID 08/04/25 09/03/25 08/03/25 History (3 mL) subcutaneous pen (Novolog FlexPen U-100 Insulin aspart) insulin glargine 100 unit/mL (3 26 unit subcut BEDTIME 08/04/25 09/03/25 08/03/25 History mL) subcutaneous pen (Lantus Solostar U-100 Insulin) sertraline 25 mg tablet 25 mg PO DAILY PRN mood 08/04/25 09/03/25 Unknown History tamsulosin 0.4 mg capsule 0.4 mg PO DAILY 08/04/25 09/03/25 08/03/25 History benzonatate 100 mg capsule 100 mg PO TID 09/03/25 09/03/25 Unknown History loratadine 10 mg tablet 10 mg PO DAILY 09/03/25 09/03/25 Unknown History Exam Exam Date and Time: 09/04/25 1650 Height,Weight and Vital Signs: Height 5 ft 5 in Weight 95.254 kg Last Vital Signs Temp 98.2 F 09/03/25 06:57 Pulse 96 09/03/25 06:57 Resp 18 09/03/25 06:57 BP 143/53 H 09/03/25 06:57 Pulse Ox 98 09/03/25 06:57 O2 Del Method Room Air 09/03/25 06:57 Vital Signs Temperature 99.1 F 09/02/25 17:03 Pulse Rate 104 H 09/02/25 17:03 Respiratory Rate 20 09/02/25 17:03 Blood Pressure 144/67 H 09/02/25 17:03 Pulse Oximetry 99 09/02/25 17:03 Oxygen Delivery Method Room Air 09/02/25 17:03 Temperature 97.7 F 09/04/25 15:21 Pulse Rate 92 09/04/25 15:21 Respiratory Rate 18 09/04/25 15:21 Blood Pressure 162/71 H 09/04/25 15:21 Pulse Oximetry 98 09/04/25 15:21 Oxygen Delivery Method Room Air 09/04/25 15:21 Airway Mallampati Class: III TM Dist: >3cm Neck ROM: Limited Heart: S1S2 Lungs: CTAB Assessment and Plan Assessment Anesthesia Assessment: Anesthesia Plan Discussed and Chart Reviewed Final Anesthetic Review Family History of Problems with Anesthesia: No History of Problems with Anesthesia: No NPO: Yes ASA Class: III Final Preanesthetic Review: No Changes in Pt Med Stat, Meds/Allgs Chart Reviewed, Consent Obtained/Reviewed (phone consent with son and HCP, Frandy Js) and Anes Risks/Benef Reviewed Patient Risk: Intermediate Procedure Risk: Low Anesthetic Plan Anesthetic Plan: MAC:, Regional Block (right adductor canal block and right sciatic nerve block) and Agree w/ Assess. and Plan Disposition: Standard PACU
--- NOTE | 2025-09-04 16:51 | MHC.SHP ---
Pre-Procedural Eval Section A - 24 Hr Update-Section A only Date of Service: 09/04/25 The patient is an INPATIENT: Yes Changes since office visit: Yes Patient answered all questions The patient has been examined within 24 hours of the surgical procedure. The History & Physical has been completed within 30 days and I have reviewed it.: Yes Section B - Complete if H&P > 30 days Chief Complaint: wound infection Allergies: Allergies Allergy/AdvReac Type Severity Reaction Status Date / Time codeine (CODEINE) AdvReac Severe UNKNOWN Verified 09/02/25 17:06 lisinopril Allergy Intermediate choking Uncoded 08/26/25 15:51 Plan I have reviewed the history and physical and performed a pertinent physical examination on my patient. No changes have occurred unless specified. Time Spent With Patient Time: Total time managing care of this patient today ____ minutes.
--- NOTE | 2025-09-04 18:13 | P.OP_ITS ---
Operative Note Operative Note Date of Service: 09/04/25 Narrative: Operative note by [facility] Preoperative diagnosis:1. Nonhealing right foot amputation site of toes 2. Diabetic foot ulcer Postoperative diagnosis: Same Procedure: Right foot transmetatarsal amputation Surgeon:John Marques M.D. Certified Nurse Aide: None Anesthesia: Block with sedation by Dr. Prasad Specimens: 1 Drains: None Estimated blood loss: 100 mL Indications: 85-year-old gentleman with prior history of diabetic foot ulcers. Great toe was amputated along with 4th toe they have been nonhealing and now the 2nd and 3rd toe became gangrenous. Now presents for transmetatarsal amputation. The patient son has signed the informed consent after reviewing risks, complications, benefits, and alternatives previously discussed with the patient. The patient and his son was given the opportunity to ask any additional questions or voice any concerns. All questions were answered to the patient's satisfaction. Procedure in detail: Patient was brought to the operating room prior to which a time-out was called for patient identification site verification. Right foot was prepped and draped in standard surgical fashion. Using a curvilinear incision over the dorsum of the right foot we went down through the skin subcu fascia over the head of the metatarsals. There was a very calcified dorsalis pedis artery that had to be suture ligated. Once this was accomplished we created a posterior flap. Using a electrocautery we got through the skin and soft tissue. We went through all the bones across the metatarsal heads. Once this was removed in its entirety we created a distal plantar flap. This was excised in its entirety there was a portion that did have some infected tissue which had to be excised. Once this was all done we obtain adequate hemostasis the bony edges were rasped down we irrigated the wound then we reapproximated the deep fascial layer with 2-0 Polysorb bringing the flap over onto the dorsum of the foot. We this this in multiple areas in an interrupted fashion. Once this was all accomplished and we obtain good reapproximation skin was reapproximated using a 3-0 nylon in a mattress fashion along with skin clips. Xeroform and a sterile dressing were applied at the end of the case. At the end the case sponge instrument counts were correct. Patient tolerated the procedure well returned to recovery with stable vitals. This note is constructed using voice recognition software. While every effort has been made to ensure accuracy, regional director of admissions errors may have been included. Thank you for allowing me to participate in the care of your patient. Yours sincerely, John Marques MD, FACS, R.P.V.I.
--- NOTE | 2025-09-04 19:52 | HE.PHANOTE ---
RE: Vanco Changing dose per subtherapeutic trough - to 750mg Q12H. Next trough to be pulled at 09/05 @1900, predicted trough 14.4, AUC 428.
[2025-09-04 20:03] LABS: Glucose, Whole Blood 162 mg/dL (60-115)
--- NOTE | 2025-09-04 22:23 | W.PM.IDCN ---
History of Present Illness Data of Consult Service Date: 09/03/25 Requesting physician: Paul Nieto Primary Care Provider: MD RAFFAELE Ambriz Reason for consult: right foot gangrene He presents with right foot swelling and malodor 10/6 right great toe and fourth toe amputation due to nonhealing. He now has gangrene rest of digits. Review of Systems Review of Systems: Yes all other systems are reviewed and are negative [facility] Past Medical History Medical History GERD (gastroesophageal reflux disease) Seizures History of recent vascular procedure (07/23/25) Mass of buttock Left buttock abscess Epidermal cyst Obesity due to excess calories CHF (congestive heart failure) Hypokalemia Diabetic nephropathy associated with type 2 diabetes mellitus CHF (congestive heart failure) Epilepsy Type 2 diabetes mellitus with hyperglycemia, with long-term current use of insulin Secondary hyperparathyroidism Diabetic neuropathy associated with type 2 diabetes mellitus CAD (coronary artery disease) (HFpEF) heart failure with preserved ejection fraction Hypertension Coronary stent patent BPH (benign prostatic hyperplasia) Dyslipidemia Neuropathy associated with endocrine disorder CKD (chronic kidney disease) Diabetes mellitus, type 2 Family History Family History Father Diabetes CVD (cardiovascular disease) Mother Diabetes CVD (cardiovascular disease) Brother Diabetes Son Thyroid disease Lung disease Psoriasis HTN (hypertension) Family history: reviewed and not pertinent Surgical History Surgical History H/O colonoscopy Stented coronary artery Hx of cardiac cath Social History Social History Household Members: Spouse Housing: Apartment Are you a primary medicare sales representative to a significant other at home: No Alcohol intake: never Patient Tobacco Use Status: Former Tobacco user Tobacco use type: Cigarette Advance Directives Date on File: 05/18/21 service: No Current occupational status: retired Meds Allergies Allergy/AdvReac Type Severity Reaction Status Date / Time codeine (CODEINE) AdvReac Severe UNKNOWN Verified 09/02/25 17:06 lisinopril Allergy Intermediate choking Uncoded 08/26/25 15:51 Active Medications: Current Medications Acetaminophen (Acetaminophen 325 Mg Tablet) 975 mg PO Q6H PRN PRN Reason: Pain, Mild 1-3,fever,headache Aspirin (Aspirin Enteric Coated 81 Mg Tablet.Dr) 81 mg PO DAILY [facility] Last Admin: 09/04/25 10:39 Dose: 81 mg Atorvastatin Calcium (Atorvastatin Calcium 80 Mg Tablet) 80 mg PO DAILY [facility] Last Admin: 09/04/25 09:31 Dose: 80 mg Benzonatate (Benzonatate 100 Mg Capsule) 100 mg PO TID [facility] Last Admin: 09/04/25 20:59 Dose: 100 mg Calcium Carbonate (Calcium Carbonate 750 Mg Tab.Chew) 750 mg PO Q4H PRN PRN Reason: Heartburn Clopidogrel Bisulfate (Clopidogrel Bisulfate 75 Mg Tablet) 75 mg PO DAILY [facility] Last Admin: 09/04/25 10:38 Dose: 75 mg Dextrose (Dextrose 50 % 25 Gm/50 Ml Syringe) 25 gm IVPUSH Q15M PRN; Protocol PRN Reason: per Hypoglycemia Standing Ord. Furosemide (Furosemide 40 Mg Tablet) 80 mg PO BIDWM [facility]; Protocol Last Admin: 09/04/25 15:56 Dose: 80 mg Glucose (Glucose Gel 15 Gm Gel..Gram.) 15 gm PO Q15M PRN; Protocol PRN Reason: per Hypoglycemia Standing Ord. Haloperidol Lactate (Haloperidol Lactate 5 Mg/Ml Vial) 0.5 mg IVPUSH ONCE PRN PRN Reason: intractable nausea Stop: 09/04/25 22:52 Heparin Sodium (Porcine) (Heparin Sodium,Porcine 5,000 Unit/Ml Vial) 5,000 unit SUBCUT Q12H [facility] Last Admin: 09/04/25 10:39 Dose: 5,000 unit Hydromorphone HCl (Hydromorphone Hcl 0.5 Mg/0.5 Ml Syringe) 0.25 mg IVPUSH Q5M PRN PRN Reason: Pain, Moderate to Severe (Pain Scale 4-10) Stop: 09/04/25 22:51 Piperacillin Sod/Tazobactam (Sod 3.375 gm/ Sodium Chloride) 50 mls @ 100 mls/hr IV Q6H [facility] Last Admin: 09/04/25 22:11 Dose: 100 mls/hr Dextrose/Sodium Chloride (D51/2ns) 1,000 mls @ 50 mls/hr IVCONT .Q20H [facility] Last Infusion: 09/04/25 22:09 Dose: 0 mls/hr Vancomycin HCl 750 mg/ Sodium (Chloride) 265 mls @ 265 mls/hr IV Q12H [facility] Last Infusion: 09/04/25 22:09 Dose: Infused Insulin Human Lispro (Insulin Lispro 100 Unit/Ml 3 Ml Vial) 0 unit SUBCUT QIDACHS [facility]; Protocol Last Admin: 09/04/25 20:59 Dose: 2 unit Isosorbide Mononitrate (Isosorbide Mononitrate 60 Mg Tab.Er.24h) 60 mg PO DAILY [facility]; Protocol Last Admin: 09/04/25 09:31 Dose: 60 mg Loratadine (Loratadine 10 Mg Tablet) 10 mg PO DAILY [facility] Last Admin: 09/04/25 09:31 Dose: 10 mg Magnesium Hydroxide (Milk Of Magnesia 30 Ml Oral.Susp) 30 ml PO DAILY PRN PRN Reason: Constipation Melatonin (Melatonin 3 Mg Tablet) 6 mg PO BEDTIME PRN PRN Reason: Insomnia Last Admin: 09/03/25 19:49 Dose: 6 mg Metoprolol Succinate (Metoprolol Succinate Er 100 Mg Tab.Er.24h) 100 mg PO DAILY [facility]; Protocol Last Admin: 09/04/25 09:32 Dose: 100 mg Naloxone HCl (Naloxone Hcl 0.4 Mg/Ml Vial) 0.04 mg IVPUSH Q5M PRN PRN Reason: Excessive sedation or RR < 8 Ondansetron HCl (Ondansetron Hcl 4 Mg/2 Ml Vial) 4 mg IVPUSH Q8H PRN PRN Reason: Nausea and Vomiting Oxycodone HCl (Oxycodone Hcl Immed Release 5 Mg Tablet) 5 mg PO Q4H PRN PRN Reason: Pain, Moderate(Pain Scale 4-6) Last Admin: 09/03/25 19:49 Dose: 5 mg Pharmacy Consult (Consult Rx Vancomycin Dosing) 1 each MISCELLANE DAILY PRN PRN Reason: Consult order Phenytoin Sodium (Phenytoin Sodium Extended 100 Mg Capsule) 200 mg PO BID [facility] Last Admin: 09/04/25 20:59 Dose: 200 mg Pregabalin (Pregabalin 150 Mg Capsule) 300 mg PO BID [facility] Last Admin: 09/04/25 20:59 Dose: 300 mg Sodium Chloride (0.9 % Sodium Chloride Flush 3 Ml Syringe) 3 ml IVFLUSH QSHIFT [facility] Last Admin: 09/04/25 20:58 Dose: 3 ml Tamsulosin HCl (Tamsulosin Hcl 0.4 Mg Capsule) 0.4 mg PO DAILY [facility] Last Admin: 09/04/25 09:30 Dose: 0.4 mg Tramadol HCl (Tramadol Hcl 50 Mg Tablet) 50 mg PO Q6H PRN PRN Reason: Pain, Moderate(Pain Scale 4-6) Vitamin D (Cholecalciferol (Vitamin D3) 25 Mcg Tablet) 25 mcg PO DAILY [facility] Last Admin: 09/04/25 09:29 Dose: 25 mcg Home Medications ?Medication ?Instructions ?Recorded ?Confirmed ?Last Taken ?Type aspirin 81 mg tablet,delayed 81 mg PO DAILY 08/12/20 09/03/25 08/03/25 History release (Adult Low Dose Aspirin) rosuvastatin 40 mg tablet 40 mg PO DAILY 08/12/20 09/03/25 08/03/25 History blood sugar diagnostic #10 ea 09/15/20 08/22/25 Unknown History lancets 28 gauge (FreeStyle #100 ea 07/20/22 08/22/25 Unknown History Lancets) metoprolol succinate 100 mg 100 mg PO DAILY 03/11/24 09/03/25 08/04/25 History tablet,extended release 24 hr pregabalin 300 mg capsule 300 mg PO BID 03/11/24 09/03/25 08/04/25 History empagliflozin 25 mg tablet 25 mg PO DAILY 06/20/24 09/03/25 08/03/25 History (Jardiance) ezetimibe 10 mg tablet 10 mg PO DAILY 12/23/24 09/03/25 08/03/25 History pantoprazole 20 mg tablet,delayed 20 mg PO DAILY@0630 07/31/25 09/03/25 08/03/25 History release (Protonix) insulin aspart U-100 100 unit/mL 14 unit subcut TID 08/04/25 09/03/25 08/03/25 History (3 mL) subcutaneous pen (Novolog FlexPen U-100 Insulin aspart) insulin glargine 100 unit/mL (3 26 unit subcut BEDTIME 08/04/25 09/03/25 08/03/25 History mL) subcutaneous pen (Lantus Solostar U-100 Insulin) sertraline 25 mg tablet 25 mg PO DAILY PRN mood 08/04/25 09/03/25 Unknown History tamsulosin 0.4 mg capsule 0.4 mg PO DAILY 08/04/25 09/03/25 08/03/25 History benzonatate 100 mg capsule 100 mg PO TID 09/03/25 09/03/25 Unknown History loratadine 10 mg tablet 10 mg PO DAILY 09/03/25 09/03/25 Unknown History Physical Exam Vital Signs: Vital Signs: Last Vital Signs Temp 98.2 F 09/04/25 19:11 Pulse 87 09/04/25 19:11 Resp 18 09/04/25 19:11 BP 146/67 H 09/04/25 19:11 Pulse Ox 97 09/04/25 19:11 O2 Del Method Room Air 09/04/25 19:11 BMI result Body Mass Index 34.9 Const: General: cooperative HEENT: Head: Yes normal to inspection Face and sinus: Yes normal facial exam Mouth: Normal oral and palatal mucosa present Teeth and gingiva: dentition normal Eyes: General: appearance normal, both eyes and all related structures Pupils: Equal, round and reactive pupils present Resp: Effort & Inspection: normal respiratory effort Cardio: Rate: regular rate Rhythm: regular rhythm GI: Palpation (GI): Soft to palpation and nontender : General: Yes no CVA tenderness Back/Spine/Pelvis: Back: no CVA tenderness Skin: General skin exam: no rashes or lesions noted Neuro: General: moves all extremities Cranial nerves: Yes Equal, round and reactive pupils present Extrem: Other: gangrene area foot Psych: Appearance: grossly normal Results Labs 09/04/25 05:49 09/04/25 05:49 Labs: Short CBC 09/04/25 Range/Units 05:49 WBC 12.4 H (4.8-10.8) X10*3/uL Hgb 8.8 L (14.0-18.0) g/dl Hct 28.3 L (42.0-52.0) % Plt Count 468 H (160-400) X10*3/uL BMP 09/04/25 05:49 Sodium 141 Potassium 3.2 L Chloride 109 H Carbon Dioxide 24 BUN 14 Creatinine 0.88 Calcium 8.3 L Microbiology Microbiology Results: Microbiology 09/02/25 17:37 Blood - Venous Blood Culture - Preliminary No growth after 48 hours. 09/02/25 17:37 Blood - Venous Blood Culture - Preliminary No growth after 48 hours. Assessment and Plan (1) Diabetes mellitus, type 2: Status: Acute (2) Diabetic infection of right foot: Status: Acute Plan He has had amputation area He has gangrene so after transmetatarsal amputation no further IV antibiotics.
[2025-09-05 03:34] VITALS: BP 158/70; PULSE 58; RESP 16; TEMP 36; O2SAT 96
[2025-09-05 06:35] LABS: MANUAL DIFF FLAG NO
[2025-09-05 06:43] LABS: Hematocrit 27.1 % (42.0-52.0); Hemoglobin 8.3 g/dl (14.0-18.0); Imm Gran Abs Auto 0.08 X10*3/uL (0.00-0.03); Imm Gran Pct Auto 0.7 % (0.0-0.4); Lymphocytes Absolute Auto 0.9 X10*3/uL (1.2-4.9); Mean Corpuscular HGB Conc 30.6 g/dl (31.0-36.0); Mean Corpuscular Hemoglobin 23.9 pg (27.0-33.0); Mean Corpuscular Volume 78.1 fL (80.0-98.0); NRBC Abs Auto 0.000 X10*3/uL (0.0-0.012); NRBC Pct Auto 0.0 /100WBC (0.0-0.2); Platelet Count 489 X10*3/uL (160-400); Red Blood Count 3.47 X10*6/uL (4.60-5.80); White Blood Count 10.8 X10*3/uL (4.8-10.8)
[2025-09-05 06:57] LABS: Anion Gap 12 (12-20); Blood Urea Nitrogen 16 mg/dL (9-16); Calcium 8.4 mg/dL (8.4-10.2); Carbon Dioxide 27 mmol/L (22-29); Chloride 108 mmol/L (96-108); Creatinine Clr Calc Pharmacy 58.9; Estimated Glomerular Filt Rate > 60; Potassium 3.2 mmol/L (3.3-5.1); Sodium 144 mmol/L (135-145)
[2025-09-05 07:42] LABS: Glucose, Whole Blood 130 mg/dL (60-115)
[2025-09-05 08:00] VITALS: BP 150/68; PULSE 81; RESP 16; TEMP 36.1; O2SAT 100
[2025-09-05] MEDS: Metoprolol Succinate ER 100 MG TAB.ER.24H PO (08:16)
[2025-09-05] MEDS: 0.9 % Sodium Chloride Flush 3 ML SYRINGE IVFLUSH ×3 (08:17→20:44)
[2025-09-05] MEDS: Aspirin Enteric Coated 81 MG TABLET.DR PO (08:17)
[2025-09-05] MEDS: Potassium Chloride ER 20 MEQ TAB.ER.PRT 40 MEQ PO (08:18)
--- NOTE | 2025-09-05 09:51 | HO.VASCPN ---
Subjective Subjective Date of Service: 09/05/25 Patient reports: no new complaints and feels better Interval history: 85-year-old gentleman postop day 1 status post right transmetatarsal amputation. This morning appears to be in much better spirits. Pain better controlled. Resting comfortably in bed. No events overnight. Tolerating regular diet. Physical Exam Vital Signs: Vital Signs: Last Vital Signs Temp 96.9 F 09/05/25 08:00 Pulse 81 09/05/25 08:00 Resp 16 09/05/25 08:00 BP 150/68 H 09/05/25 08:00 Pulse Ox 100 09/05/25 08:00 O2 Del Method Room Air 09/05/25 08:00 BMI result Body Mass Index 34.9 Const: General: cooperative, healthy appearing and no acute distress Orientation/consciousness: oriented to person, oriented to place and oriented to time HEENT: Head: Yes normal to inspection Neck: Carotids: no bruits Chest: Chest palpation & inspection: normal inspection of the chest Resp: Effort & Inspection: normal respiratory effort and able to speak in complete sentences Auscultation: clear to auscultation bilaterally Cardio: Rate: regular rate Heart sounds: S1 normal heart sound present and S2 normal heart sound present GI: Inspection: Yes normal to inspection Skin: Other: Right transmetatarsal site dressing clean dry intact. Outer Jamarcus wrap removed. Kerlix left in place. General skin exam: no rashes or lesions noted Wounds: amputation site Neuro: General: oriented to person, oriented to place, oriented to time and CN's II-XI intact bilaterally Extrem: General: Yes normal to inspection, Yes full ROM and Yes no clubbing, cyanosis or edema Psych: Appearance: grossly normal and well kempt Speech and movement: Normal speech and movement present Affect: normal affect Progress Note: A&P Assessment and plan (1) Diabetic infection of right foot: Status: Acute Assessment and Plan: Patient is status post right transmetatarsal amputation. Appears to be doing relatively well and hopefully all infection was resected. Would continue antibiotics through the weekend and plan for dressing change and evaluation on Monday. Hopefully will not require any further IV antibiotic therapy. Patient can be out of bed and can heel touch on that right foot. Thank you for allowing us to assist in his care. If there are any questions or concerns please do not hesitate to contact us. Time Spent With Patient Time: Total time managing care of this patient today ____ minutes. Procedures Date of Service Date of Service: 09/05/25 Quality Stroke Does the patient have a stroke diagnosis?: No VTE Prior VTE?: No VTE Risk Level:: Medical - moderate - high VTE Device Contraindication: Treatment Not Indicated VTE Drug Contraindication: N/A - Med Ordered
--- NOTE | 2025-09-05 10:09 | HO.POSTANES ---
Post Anesthesia Evaluation Post Anesthesia Evaluation Date of Service: 09/05/25 Vital Signs: Vital Signs Temp Pulse Resp BP Pulse Ox O2 Del Method 09/05/25 08:00 96.9 F 81 16 150/68 H 100 Room Air 09/05/25 03:34 96.8 F 58 16 158/70 H 96 Room Air Anesthesia: TIVA Mental Status: Awake Pain Control: Satisfactory Nausea/Vomiting: None Hydration: Adequate Anesthesia-Related Issues: No Anes. Related Issues
[2025-09-05 11:17] LABS: Glucose, Whole Blood 255 mg/dL (60-115)
[2025-09-05 15:40] VITALS: BP 139/65; PULSE 91; RESP 18; TEMP 36.3; O2SAT 97
--- NOTE | 2025-09-05 16:00 | MHC.CM.PN ---
PER MD ROUNDS, PT WILL LIKELY REMAIN OVER THE WEEKEND DCP: [facility]
[2025-09-05 16:42] LABS: Glucose, Whole Blood 166 mg/dL (60-115)
[2025-09-05 19:18] VITALS: BP 135/60; PULSE 90; RESP 18; TEMP 36.6; O2SAT 95
[2025-09-05 19:58] LABS: Glucose, Whole Blood 195 mg/dL (60-115)
--- NOTE | 2025-09-05 20:00 | HE.PHANOTE ---
Re: Vanco Renal function improving. Trough returned at 14.7. Continue current dose of 750mg q12h with predicted AUC 496, predicted trough 17.1. Next trough 09/06 @ 1700.
[2025-09-06 03:57] VITALS: BP 148/63; PULSE 59; RESP 18; TEMP 36.5; O2SAT 94
[2025-09-06 05:31] LABS: Creatinine Clr Calc Pharmacy 58.3; Estimated Glomerular Filt Rate > 60
[2025-09-06 07:25] VITALS: BP 160/74; PULSE 89; RESP 20; TEMP 36.2; O2SAT 94
[2025-09-06 07:35] LABS: Glucose, Whole Blood 148 mg/dL (60-115)
--- NOTE | 2025-09-06 08:58 | HO.PM.IMPN ---
Subjective Subjective Date of Service: 09/06/25 Interval History: no new complaints ENT Ears, Nose, Mouth, and Throat: Reports Normal hearing present Neurologic Neurologic: Reports Normal hearing present Physical Exam Vital Signs: Vital Signs: Last Vital Signs Temp 97.2 F 09/06/25 07:25 Pulse 89 09/06/25 07:25 Resp 20 09/06/25 07:25 BP 160/74 H 09/06/25 07:25 Pulse Ox 94 09/06/25 07:25 O2 Del Method Room Air 09/06/25 07:25 BMI result Body Mass Index 34.9 Const: General: cooperative, healthy appearing and no acute distress Orientation/consciousness: oriented to person, oriented to place and oriented to time HEENT: Head: Yes normal to inspection Neck: Carotids: no bruits Chest: Chest palpation & inspection: normal inspection of the chest Resp: Effort & Inspection: normal respiratory effort and able to speak in complete sentences Auscultation: clear to auscultation bilaterally Cardio: Rate: regular rate Heart sounds: S1 normal heart sound present and S2 normal heart sound present GI: Inspection: Yes normal to inspection Skin: Other: Right transmetatarsal site dressing clean dry intact. Outer Jamarcus wrap removed. Kerlix left in place. General skin exam: no rashes or lesions noted Wounds: amputation site Neuro: General: oriented to person, oriented to place, oriented to time and CN's II-XI intact bilaterally Cranial nerves: Yes Normal hearing present Extrem: General: Yes normal to inspection, Yes full ROM and Yes no clubbing, cyanosis or edema Psych: Appearance: grossly normal and well kempt Speech and movement: Normal speech and movement present Affect: normal affect Objective Data Active Medications Acetaminophen (Acetaminophen 325 Mg Tablet) 975 mg PO Q6H PRN PRN Reason: Pain, Mild 1-3,fever,headache Aspirin (Aspirin Enteric Coated 81 Mg Tablet.) 81 mg PO DAILY [facility] Last Admin: 09/05/25 08:17 Dose: 81 mg Documented By: BETTY Atorvastatin Calcium (Atorvastatin Calcium 80 Mg Tablet) 80 mg PO DAILY [facility] Last Admin: 09/05/25 08:16 Dose: 80 mg Documented By: BETTY Benzonatate (Benzonatate 100 Mg Capsule) 100 mg PO TID [facility] Last Admin: 09/05/25 20:38 Dose: 100 mg Documented By: COTY Calcium Carbonate (Calcium Carbonate 750 Mg Tab.Chew) 750 mg PO Q4H PRN PRN Reason: Heartburn Clopidogrel Bisulfate (Clopidogrel Bisulfate 75 Mg Tablet) 75 mg PO DAILY [facility] Last Admin: 09/05/25 08:15 Dose: 75 mg Documented By: BETTY Dextrose (Dextrose 50 % 25 Gm/50 Ml Syringe) 25 gm IVPUSH Q15M PRN; Protocol PRN Reason: per Hypoglycemia Standing Ord. Furosemide (Furosemide 40 Mg Tablet) 80 mg PO BIDWM [facility]; Protocol Last Admin: 09/05/25 16:04 Dose: 80 mg Documented By: BETTY Glucose (Glucose Gel 15 Gm Gel..Gram.) 15 gm PO Q15M PRN; Protocol PRN Reason: per Hypoglycemia Standing Ord. Heparin Sodium (Porcine) (Heparin Sodium,Porcine 5,000 Unit/Ml Vial) 5,000 unit SUBCUT Q12H [facility] Last Admin: 09/05/25 22:47 Dose: 5,000 unit Documented By: COTY Vancomycin HCl 750 mg/ Sodium (Chloride) 265 mls @ 265 mls/hr IV Q12H [facility] Last Infusion: 09/05/25 21:38 Dose: Infused Documented By: COTY Piperacillin Sod/Tazobactam (Sod 4.5 gm/ Sodium Chloride) 100 mls @ 200 mls/hr IV Q6H [facility] Last Infusion: 09/06/25 04:28 Dose: Infused Documented By: FLORA Insulin Human Lispro (Insulin Lispro 100 Unit/Ml 3 Ml Vial) 0 unit SUBCUT QIDACHS [facility]; Protocol Last Admin: 09/06/25 07:39 Dose: Not Given Documented By: ASH Non-Admin Reason: No Insulin Coverage Isosorbide Mononitrate (Isosorbide Mononitrate 60 Mg Tab.Er.24h) 60 mg PO DAILY [facility]; Protocol Last Admin: 09/05/25 08:15 Dose: 60 mg Documented By: BETTY Loratadine (Loratadine 10 Mg Tablet) 10 mg PO DAILY [facility] Last Admin: 09/05/25 08:36 Dose: 10 mg Documented By: BETTY Magnesium Hydroxide (Milk Of Magnesia 30 Ml Oral.Susp) 30 ml PO DAILY PRN PRN Reason: Constipation Melatonin (Melatonin 3 Mg Tablet) 6 mg PO BEDTIME PRN PRN Reason: Insomnia Last Admin: 09/03/25 19:49 Dose: 6 mg Documented By: VIKTORIA Metoprolol Succinate (Metoprolol Succinate Er 100 Mg Tab.Er.24h) 100 mg PO DAILY [facility]; Protocol Last Admin: 09/05/25 08:16 Dose: 100 mg Documented By: BETTY Naloxone HCl (Naloxone Hcl 0.4 Mg/Ml Vial) 0.04 mg IVPUSH Q5M PRN PRN Reason: Excessive sedation or RR < 8 Ondansetron HCl (Ondansetron Hcl 4 Mg/2 Ml Vial) 4 mg IVPUSH Q8H PRN PRN Reason: Nausea and Vomiting Oxycodone HCl (Oxycodone Hcl Immed Release 5 Mg Tablet) 5 mg PO Q4H PRN PRN Reason: Pain, Moderate(Pain Scale 4-6) Last Admin: 09/03/25 19:49 Dose: 5 mg Documented By: VIKTORIA Pharmacy Consult (Consult Rx Vancomycin Dosing) 1 each MISCELLANE DAILY PRN PRN Reason: Consult order Phenytoin Sodium (Phenytoin Sodium Extended 100 Mg Capsule) 200 mg PO BID [facility] Last Admin: 09/05/25 20:38 Dose: 200 mg Documented By: COTY Pregabalin (Pregabalin 150 Mg Capsule) 300 mg PO BID [facility] Last Admin: 09/05/25 20:38 Dose: 300 mg Documented By: COTY Sodium Chloride (0.9 % Sodium Chloride Flush 3 Ml Syringe) [facility] Last Admin: 09/05/25 20:44 Dose: 3 ml Documented By: COTY Tamsulosin HCl (Tamsulosin Hcl 0.4 Mg Capsule) 0.4 mg PO DAILY [facility] Last Admin: 09/05/25 08:16 Dose: 0.4 mg Documented By: BETTY Tramadol HCl (Tramadol Hcl 50 Mg Tablet) 50 mg PO Q6H PRN PRN Reason: Pain, Moderate(Pain Scale 4-6) Vitamin D (Cholecalciferol (Vitamin D3) 25 Mcg Tablet) 25 mcg PO DAILY [facility] Last Admin: 09/05/25 08:15 Dose: 25 mcg Documented By: BETTY Labs 09/05/25 06:10 09/06/25 04:38 Labs: Laboratory Results - last 24 hr 09/05/25 09/05/25 09/05/25 11:13 16:37 19:03 Estim Creat Clear Calc Estimated GFR POC Glucose 255 H 166 H Random Vancomycin 14.7 L 09/05/25 09/06/25 09/06/25 19:54 04:38 07:30 Estim Creat Clear Calc 58.3 Estimated GFR > 60 POC Glucose 195 H 148 H Random Vancomycin Assessment and Plan (1) Diabetes mellitus, type 2: Status: Acute Plan 85M PMH epilepsy, unspecified dementia, DM, pvd, karen, hld, htn, cad, hfpef, presented with fevers and amp site drainage and erythema Sepsis due to acute osteomyelitis due to diabetes and peripheral vascular disease Vancomycin Zosyn s/p right foot TMA 09/04/25 no need for oysterman IV abx epilepsy dilantin DM insulin cad dapl statin karen does not use cpap Epilepsy Continue phenytoin dvt porphylaxis -hep sq full code reason for continued hospitalization:mointor post op Quality Stroke Does the patient have a stroke diagnosis?: No VTE Prior VTE?: No VTE Risk Level:: Medical - moderate - high VTE Device Contraindication: Treatment Not Indicated VTE Drug Contraindication: N/A - Med Ordered
--- NOTE | 2025-09-06 09:00 | HO.PM.IMPN ---
Subjective Subjective Date of Service: 09/05/25 Interval History: late entry no complaints Physical Exam Exam: Exam: General: no acute distress Resp: CTA bilateral, no accessory muscles used CVS: S1,S2,RRR GI: soft, non tender, non distended Neuro: motor grossly intact, alert Vital Signs: Vital Signs: Last Vital Signs Temp 97.2 F 09/06/25 07:25 Pulse 89 09/06/25 07:25 Resp 20 09/06/25 07:25 BP 160/74 H 09/06/25 07:25 Pulse Ox 94 09/06/25 07:25 O2 Del Method Room Air 09/06/25 07:25 BMI result Body Mass Index 34.9 Objective Data Active Medications Acetaminophen (Acetaminophen 325 Mg Tablet) 975 mg PO Q6H PRN PRN Reason: Pain, Mild 1-3,fever,headache Aspirin (Aspirin Enteric Coated 81 Mg Tablet.) 81 mg PO DAILY [facility] Last Admin: 09/05/25 08:17 Dose: 81 mg Documented By: BETTY Atorvastatin Calcium (Atorvastatin Calcium 80 Mg Tablet) 80 mg PO DAILY [facility] Last Admin: 09/05/25 08:16 Dose: 80 mg Documented By: BETTY Benzonatate (Benzonatate 100 Mg Capsule) 100 mg PO TID [facility] Last Admin: 09/05/25 20:38 Dose: 100 mg Documented By: COTY Calcium Carbonate (Calcium Carbonate 750 Mg Tab.Chew) 750 mg PO Q4H PRN PRN Reason: Heartburn Clopidogrel Bisulfate (Clopidogrel Bisulfate 75 Mg Tablet) 75 mg PO DAILY [facility] Last Admin: 09/05/25 08:15 Dose: 75 mg Documented By: BETTY Dextrose (Dextrose 50 % 25 Gm/50 Ml Syringe) 25 gm IVPUSH Q15M PRN; Protocol PRN Reason: per Hypoglycemia Standing Ord. Furosemide (Furosemide 40 Mg Tablet) 80 mg PO BIDWM [facility]; Protocol Last Admin: 09/05/25 16:04 Dose: 80 mg Documented By: BETTY Glucose (Glucose Gel 15 Gm Gel..Gram.) 15 gm PO Q15M PRN; Protocol PRN Reason: per Hypoglycemia Standing Ord. Heparin Sodium (Porcine) (Heparin Sodium,Porcine 5,000 Unit/Ml Vial) 5,000 unit SUBCUT Q12H [facility] Last Admin: 09/05/25 22:47 Dose: 5,000 unit Documented By: COTY Vancomycin HCl 750 mg/ Sodium (Chloride) 265 mls @ 265 mls/hr IV Q12H [facility] Last Infusion: 09/05/25 21:38 Dose: Infused Documented By: COTY Piperacillin Sod/Tazobactam (Sod 4.5 gm/ Sodium Chloride) 100 mls @ 200 mls/hr IV Q6H [facility] Last Infusion: 09/06/25 04:28 Dose: Infused Documented By: FLORA Insulin Human Lispro (Insulin Lispro 100 Unit/Ml 3 Ml Vial) 0 unit SUBCUT QIDACHS [facility]; Protocol Last Admin: 09/06/25 07:39 Dose: Not Given Documented By: ASH Non-Admin Reason: No Insulin Coverage Isosorbide Mononitrate (Isosorbide Mononitrate 60 Mg Tab.Er.24h) 60 mg PO DAILY [facility]; Protocol Last Admin: 09/05/25 08:15 Dose: 60 mg Documented By: BETTY Loratadine (Loratadine 10 Mg Tablet) 10 mg PO DAILY [facility] Last Admin: 09/05/25 08:36 Dose: 10 mg Documented By: BETTY Magnesium Hydroxide (Milk Of Magnesia 30 Ml Oral.Susp) 30 ml PO DAILY PRN PRN Reason: Constipation Melatonin (Melatonin 3 Mg Tablet) 6 mg PO BEDTIME PRN PRN Reason: Insomnia Last Admin: 09/03/25 19:49 Dose: 6 mg Documented By: VIKTORIA Metoprolol Succinate (Metoprolol Succinate Er 100 Mg Tab.Er.24h) 100 mg PO DAILY [facility]; Protocol Last Admin: 09/05/25 08:16 Dose: 100 mg Documented By: BETTY Naloxone HCl (Naloxone Hcl 0.4 Mg/Ml Vial) 0.04 mg IVPUSH Q5M PRN PRN Reason: Excessive sedation or RR < 8 Ondansetron HCl (Ondansetron Hcl 4 Mg/2 Ml Vial) 4 mg IVPUSH Q8H PRN PRN Reason: Nausea and Vomiting Oxycodone HCl (Oxycodone Hcl Immed Release 5 Mg Tablet) 5 mg PO Q4H PRN PRN Reason: Pain, Moderate(Pain Scale 4-6) Last Admin: 09/03/25 19:49 Dose: 5 mg Documented By: VIKTORIA Pharmacy Consult (Consult Rx Vancomycin Dosing) 1 each MISCELLANE DAILY PRN PRN Reason: Consult order Phenytoin Sodium (Phenytoin Sodium Extended 100 Mg Capsule) 200 mg PO BID [facility] Last Admin: 09/05/25 20:38 Dose: 200 mg Documented By: COTY Pregabalin (Pregabalin 150 Mg Capsule) 300 mg PO BID [facility] Last Admin: 09/05/25 20:38 Dose: 300 mg Documented By: COTY Sodium Chloride (0.9 % Sodium Chloride Flush 3 Ml Syringe) 3 ml IVFLUSH QSHIFT [facility] Last Admin: 09/05/25 20:44 Dose: 3 ml Documented By: COTY Tamsulosin HCl (Tamsulosin Hcl 0.4 Mg Capsule) 0.4 mg PO DAILY [facility] Last Admin: 09/05/25 08:16 Dose: 0.4 mg Documented By: BETTY Tramadol HCl (Tramadol Hcl 50 Mg Tablet) 50 mg PO Q6H PRN PRN Reason: Pain, Moderate(Pain Scale 4-6) Vitamin D (Cholecalciferol (Vitamin D3) 25 Mcg Tablet) 25 mcg PO DAILY [facility] Last Admin: 09/05/25 08:15 Dose: 25 mcg Documented By: BETTY Labs 09/05/25 06:10 09/06/25 04:38 Labs: Laboratory Results - last 24 hr 09/05/25 09/05/25 09/05/25 11:13 16:37 19:03 Estim Creat Clear Calc Estimated GFR POC Glucose 255 H 166 H Random Vancomycin 14.7 L 09/05/25 09/06/25 09/06/25 19:54 04:38 07:30 Estim Creat Clear Calc 58.3 Estimated GFR > 60 POC Glucose 195 H 148 H Random Vancomycin Assessment and Plan (1) Diabetes mellitus, type 2: Status: Acute Plan 85M PMH epilepsy, unspecified dementia, DM, pvd, karen, hld, htn, cad, hfpef, presented with fevers and amp site drainage and erythema Sepsis due to acute osteomyelitis due to diabetes and peripheral vascular disease Vancomycin Zosyn s/p right foot TMA 09/04/25 vascular following epilepsy dilantin DM insulin cad dapl statin karen does not use cpap Epilepsy Continue phenytoin dvt porphylaxis -hep sq full code reason for continued hospitalization:monitor post op Quality Stroke Does the patient have a stroke diagnosis?: No VTE Prior VTE?: No VTE Risk Level:: Medical - moderate - high VTE Device Contraindication: Treatment Not Indicated VTE Drug Contraindication: N/A - Med Ordered
[2025-09-06] MEDS: Aspirin Enteric Coated 81 MG TABLET.DR PO (09:01)
[2025-09-06] MEDS: Metoprolol Succinate ER 100 MG TAB.ER.24H PO (09:02)
[2025-09-06] MEDS: 0.9 % Sodium Chloride Flush 3 ML SYRINGE IVFLUSH ×3 (09:10→20:34)
--- NOTE | 2025-09-06 09:15 | P.PNVS_ITS ---
Subjective Subjective Date of Service: 09/06/25 Patient reports: no new complaints and feels better Interval history: Patient seen and examined. No significant events overnight. Appears to be doing relatively better. Only reports slight pain the right foot. Other than that appears to be doing relatively well. Physical Exam Vital Signs: Vital Signs: Last Vital Signs Temp 97.2 F 09/06/25 07:25 Pulse 89 09/06/25 07:25 Resp 20 09/06/25 07:25 BP 160/74 H 09/06/25 07:25 Pulse Ox 94 09/06/25 07:25 O2 Del Method Room Air 09/06/25 07:25 BMI result Body Mass Index 34.9 Const: General: cooperative, healthy appearing and no acute distress Orientation/consciousness: oriented to person, oriented to place and oriented to time HEENT: Head: Yes normal to inspection Neck: Carotids: no bruits Chest: Chest palpation & inspection: normal inspection of the chest Resp: Effort & Inspection: normal respiratory effort and able to speak in complete sentences Auscultation: clear to auscultation bilaterally Cardio: Rate: regular rate Heart sounds: S1 normal heart sound present and S2 normal heart sound present GI: Inspection: Yes normal to inspection Skin: Other: Right trans met flap central portion with slight duskiness but overall appears t o be doing relatively well. Dressing changed General skin exam: no rashes or lesions noted Wounds: no wounds Neuro: General: oriented to person, oriented to place, oriented to time and CN's II-XI intact bilaterally Extrem: General: Yes normal to inspection, Yes full ROM and Yes no clubbing, cyanosis or edema Psych: Appearance: grossly normal and well kempt Speech and movement: Normal speech and movement present Affect: normal affect Progress Note: A&P Assessment and plan (1) Status post transmetatarsal amputation of right foot: Status: Acute Assessment and Plan: In short patient has done well with his transmetatarsal amputation. There is minimal surrounding cellulitis. Upon discharge would recommend 10 days of p.o. Keflex. He can see us in a proximally 2 weeks after discharge for suture and staple removal. Thank you for allowing us to assist in his care. If there are any questions or concerns please do not hesitate to contact us. Time Spent With Patient Time: Total time managing care of this patient today ____ minutes. Procedures Date of Service Date of Service: 09/06/25 Quality Stroke Does the patient have a stroke diagnosis?: No VTE Prior VTE?: No VTE Risk Level:: Medical - moderate - high VTE Device Contraindication: Treatment Not Indicated VTE Drug Contraindication: N/A - Med Ordered
--- NOTE | 2025-09-06 09:30 | PM.EVENT ---
Event Note Date of Service: 09/06/25 Event Note: Time Spent With Patient Time: Total time managing care of this patient today ____ minutes.
[2025-09-06 11:07] LABS: Glucose, Whole Blood 157 mg/dL (60-115)
[2025-09-06 15:35] VITALS: BP 120/61; PULSE 88; RESP 18; TEMP 36.2; O2SAT 97
[2025-09-06 16:32] LABS: Glucose, Whole Blood 149 mg/dL (60-115)
[2025-09-06 20:00] VITALS: BP 140/70; PULSE 86; RESP 16; TEMP 36.7; O2SAT 98
[2025-09-06 21:09] LABS: Glucose, Whole Blood 151 mg/dL (60-115)
--- NOTE | 2025-09-06 21:59 | PC.NURSE ---
Patient complaining of 5-6/10 pain in his right foot. This RN attempted to give tramadol but patient didn't want to take it and kept pushing it out of his face. Patient is confused and he was not comprehending the purpose of this medication.
[2025-09-07 03:41] VITALS: BP 150/68; PULSE 78; RESP 16; TEMP 36.1; O2SAT 94
[2025-09-07 07:13] VITALS: BP 136/63; PULSE 82; RESP 18; TEMP 36.8; O2SAT 97
[2025-09-07 07:22] LABS: Hematocrit 28.3 % (42.0-52.0); Hemoglobin 8.7 g/dl (14.0-18.0); Mean Corpuscular HGB Conc 30.7 g/dl (31.0-36.0); Mean Corpuscular Hemoglobin 23.9 pg (27.0-33.0); Mean Corpuscular Volume 77.7 fL (80.0-98.0); NRBC Abs Auto 0.000 X10*3/uL (0.0-0.012); NRBC Pct Auto 0.0 /100WBC (0.0-0.2); Platelet Count 507 X10*3/uL (160-400); Red Blood Count 3.64 X10*6/uL (4.60-5.80); White Blood Count 9.9 X10*3/uL (4.8-10.8)
[2025-09-07 07:22] LABS: Glucose, Whole Blood 123 mg/dL (60-115)
[2025-09-07 07:59] LABS: Blood Urea Nitrogen 15 mg/dL (9-16); Calcium 8.4 mg/dL (8.4-10.2); Creatinine Clr Calc Pharmacy 65.5; Estimated Glomerular Filt Rate > 60
[2025-09-07 08:08] LABS: Anion Gap 14 (12-20); Carbon Dioxide 27 mmol/L (22-29); Chloride 107 mmol/L (96-108); Potassium 2.6 mmol/L (3.3-5.1); Sodium 145 mmol/L (135-145)
[2025-09-07] MEDS: Metoprolol Succinate ER 100 MG TAB.ER.24H PO (08:36)
[2025-09-07] MEDS: Aspirin Enteric Coated 81 MG TABLET.DR PO (08:36)
[2025-09-07] MEDS: 0.9 % Sodium Chloride Flush 3 ML SYRINGE IVFLUSH ×2 (08:37→16:16)
[2025-09-07] MEDS: Potassium Chloride ER 20 MEQ TAB.ER.PRT 40 MEQ PO (09:58)
[2025-09-07] MEDS: Potassium Chloride/H20 10 MEQ/100 ML PIGGYBACK 100 MEQ IV ×2 (10:32→11:48)
--- NOTE | 2025-09-07 11:13 | P.PNIM_ITS ---
Subjective Subjective Date of Service: 09/07/25 Interval History: no complaints Physical Exam 2 Vital Signs: Vital Signs: Last Vital Signs Temp 98.2 F 09/07/25 07:13 Pulse 82 09/07/25 07:13 Resp 18 09/07/25 07:13 BP 136/63 09/07/25 07:13 Pulse Ox 97 09/07/25 07:13 O2 Del Method Room Air 09/07/25 07:13 BMI result Body Mass Index 34.9 Const: General: cooperative, healthy appearing and no acute distress O rientation/consciousness: oriented to person, oriented to place and oriented to time HEENT: Head: Yes normal to inspection Neck: Carotids: no bruits Chest: Chest palpation & inspection: normal inspection of the chest Resp: Effort & Inspection: normal respiratory effort and able to speak in complete sentences Auscultation: clear to auscultation bilaterally Cardio: Rate: regular rate Heart sounds: S1 normal heart sound present and S2 normal heart sound present GI: Inspection: Yes normal to inspection Skin: Other: Right trans met flap central portion with slight duskiness but overall appears to be doing relatively well. Dressing changed General skin exam: no rashes or lesions noted Wounds: no wounds Neuro: General: oriented to person, oriented to place, oriented to time and CN's II-XI intact bilaterally Extrem: General: Yes normal to inspection, Yes full ROM and Yes no clubbing, cyanosis or edema Psych: Appearance: grossly normal and well kempt Speech and movement: N ormal speech and movement present Affect: normal affect Objective Data Active Medications Acetaminophen (Acetaminophen 325 Mg Tablet) 975 mg PO Q6H PRN PRN Reason: Pain, Mild 1-3,fever,headache Aspirin (Aspirin Enteric Coated 81 Mg Tablet.) 81 mg PO DAILY [facility] Last Admin: 09/07/25 08:36 Dose: 81 mg Documented By: ASH Atorvastatin Calcium (Atorvastatin Calcium 80 Mg Tablet) 80 mg PO DAILY [facility] Last Admin: 09/07/25 08:36 Dose: 80 mg Documented By: ASH Benzonatate (Benzonatate 100 Mg Capsule) 100 mg PO TID [facility] Last Admin: 09/07/25 08:36 Dose: 100 mg Documented By: ASH Calcium Carbonate (Calcium Carbonate 750 Mg Tab.Chew) 750 mg PO Q4H PRN PRN Reason: Heartburn Clopidogrel Bisulfate (Clopidogrel Bisulfate 75 Mg Tablet) 75 mg PO DAILY [facility] Last Admin: 09/07/25 08:35 Dose: 75 mg Documented By: ASH Dextrose (Dextrose 50 % 25 Gm/50 Ml Syringe) 25 gm IVPUSH Q15M PRN; Protocol PRN Reason: per Hypoglycemia Standing Ord. Furosemide (Furosemide 40 Mg Tablet) 80 mg PO BIDWM [facility]; Protocol Last Admin: 09/07/25 08:36 Dose: 80 mg Documented By: ASH Glucose (Glucose Gel 15 Gm Gel..Gram.) 15 gm PO Q15M PRN; Protocol PRN Reason: per Hypoglycemia Standing Ord. Heparin Sodium (Porcine) (Heparin Sodium,Porcine 5,000 Unit/Ml Vial) 5,000 unit SUBCUT Q12H [facility] Last Admin: 09/07/25 10:31 Dose: 5,000 unit Documented By: ASH Vancomycin HCl 750 mg/ Sodium (Chloride) 265 mls @ 265 mls/hr IV Q12H [facility] Last Infusion: 09/07/25 09:51 Dose: Infused Documented By: ASH Piperacillin Sod/Tazobactam (Sod 4.5 gm/ Sodium Chloride) 100 mls @ 200 mls/hr IV Q6H [facility] Last Infusion: 09/07/25 10:34 Dose: Infused Documented By: ASH Potassium Chloride (Potassium Chloride/H20) 10 meq in 100 mls @ 100 mls/hr IV Q1H [facility] Stop: 09/07/25 11:59 Last Admin: 09/07/25 10:32 Dose: 100 mls/hr Documented By: ASH Insulin Human Lispro (Insulin Lispro 100 Unit/Ml 3 Ml Vial) 0 unit SUBCUT QIDACHS [facility]; Protocol Last Admin: 09/07/25 07:23 Dose: Not Given Documented By: ASH Non-Admin Reason: No Insulin Coverage Isosorbide Mononitrate (Isosorbide Mononitrate 60 Mg Tab.Er.24h) 60 mg PO DAILY [facility]; Protocol Last Admin: 09/07/25 08:36 Dose: 60 mg Documented By: ASH Loratadine (Loratadine 10 Mg Tablet) 10 mg PO DAILY [facility] Last Admin: 09/07/25 08:36 Dose: 10 mg Documented By: ASH Magnesium Hydroxide (Milk Of Magnesia 30 Ml Oral.Susp) 30 ml PO DAILY PRN PRN Reason: Constipation Melatonin (Melatonin 3 Mg Tablet) 6 mg PO BEDTIME PRN PRN Reason: Insomnia Last Admin: 09/03/25 19:49 Dose: 6 mg Documented By: VIKTORIA Metoprolol Succinate (Metoprolol Succinate Er 100 Mg Tab.Er.24h) 100 mg PO DAILY [facility]; Protocol Last Admin: 09/07/25 08:36 Dose: 100 mg Documented By: ASH Naloxone HCl (Naloxone Hcl 0.4 Mg/Ml Vial) 0.04 mg IVPUSH Q5M PRN PRN Reason: Excessive sedation or RR < 8 Ondansetron HCl (Ondansetron Hcl 4 Mg/2 Ml Vial) 4 mg IVPUSH Q8H PRN PRN Reason: Nausea and Vomiting Oxycodone HCl (Oxycodone Hcl Immed Release 5 Mg Tablet) 5 mg PO Q4H PRN PRN Reason: Pain, Moderate(Pain Scale 4-6) Last Admin: 09/03/25 19:49 Dose: 5 mg Documented By: VIKTORIA Pharmacy Consult (Consult Rx Vancomycin Dosing) 1 each MISCELLANE DAILY PRN PRN Reason: Consult order Phenytoin Sodium (Phenytoin Sodium Extended 100 Mg Capsule) 200 mg PO BID [facility] Last Admin: 09/07/25 08:35 Dose: 200 mg Documented By: ASH Pregabalin (Pregabalin 150 Mg Capsule) 300 mg PO BID [facility] Last Admin: 09/07/25 08:36 Dose: 300 mg Documented By: ASH Sodium Chloride (0.9 % Sodium Chloride Flush 3 Ml Syringe) [facility] Last Admin: 09/07/25 08:37 Dose: 3 ml Documented By: ASH Tamsulosin HCl (Tamsulosin Hcl 0.4 Mg Capsule) 0.4 mg PO DAILY [facility] Last Admin: 09/07/25 08:36 Dose: 0.4 mg Documented By: ASH Tramadol HCl (Tramadol Hcl 50 Mg Tablet) 50 mg PO Q6H PRN PRN Reason: Pain, Moderate(Pain Scale 4-6) Vitamin D (Cholecalciferol (Vitamin D3) 25 Mcg Tablet) 25 mcg PO DAILY [facility] Last Admin: 09/07/25 08:36 Dose: 25 mcg Documented By: ASH Labs 09/07/25 06:31 09/07/25 06:31 Labs: Laboratory Results - last 24 hr 09/06/25 09/06/25 09/06/25 16:27 18:55 21:03 MCV MCH MCHC RDW Plt Count MPV Absolute Nucleated RBC Nucleated RBC % (auto) Anion Gap Estim Creat Clear Calc Estimated GFR POC Glucose 149 H 151 H Random Glucose Calcium Random Vancomycin 15.8 09/07/25 09/07/25 06:31 07:18 MCV 77.7 L MCH 23.9 L MCHC 30.7 L RDW 18.5 H Plt Count 507 H MPV 9.5 Absolute Nucleated RBC 0.000 Nucleated RBC % (auto) 0.0 Anion Gap 14 Estim Creat Clear Calc 65.5 Estimated GFR > 60 POC Glucose 123 H Random Glucose 124 H Calcium 8.4 Random Vancomycin Assessment and Plan (1) Diabetes mellitus, type 2: Status: Acute Plan 85M PMH epilepsy, unspecified dementia, DM, pvd, karen, hld, htn, cad, hfpef, presented with fevers and amp site drainage and erythema Sepsis due to acute osteomyelitis due to diabetes and peripheral vascular disease Vancomycin Zosyn s/p right foot TMA 09/04/25 vascular following likely dc tomorrow on oral keflex acute hypokalemia replace and monitor epilepsy dilantin DM insulin cad dapl statin karen does not use cpap Epilepsy Continue phenytoin dvt porphylaxis -hep sq full code reason for continued hospitalization:monitor post op, hypok Quality Stroke Does the patient have a stroke diagnosis?: No VTE Prior VTE?: No VTE Risk Level:: Medical - moderate - high VTE Device Contraindication: Treatment Not Indicated VTE Drug Contraindication: N/A - Med Ordered
[2025-09-07 11:32] LABS: Glucose, Whole Blood 229 mg/dL (60-115)
[2025-09-07 15:06] VITALS: BP 147/70; PULSE 73; RESP 18; TEMP 37; O2SAT 98
[2025-09-07 16:25] LABS: Glucose, Whole Blood 155 mg/dL (60-115)
[2025-09-07 19:14] VITALS: BP 137/62; PULSE 90; RESP 15; TEMP 36.1; O2SAT 97
[2025-09-07 20:28] LABS: Glucose, Whole Blood 202 mg/dL (60-115)
[2025-09-08 03:14] VITALS: BP 144/66; PULSE 81; RESP 16; TEMP 36.2; O2SAT 85
[2025-09-08] MEDS: oxyCODONE HCl Immed Release 5 MG TABLET PO ×5 (03:26→21:06)
[2025-09-08] MEDS: 0.9 % Sodium Chloride Flush 3 ML SYRINGE IVFLUSH (07:04)
[2025-09-08 07:35] LABS: Blood Urea Nitrogen 14 mg/dL (9-16); Calcium 8.7 mg/dL (8.4-10.2); Creatinine Clr Calc Pharmacy 62.7; Estimated Glomerular Filt Rate > 60; Magnesium 2.3 mg/dL (1.6-2.6)
[2025-09-08 07:49] LABS: Anion Gap 13 (12-20); Carbon Dioxide 26 mmol/L (22-29); Chloride 107 mmol/L (96-108); Potassium 3.2 mmol/L (3.3-5.1); Sodium 143 mmol/L (135-145)
[2025-09-08 07:52] LABS: Hematocrit 31.4 % (42.0-52.0); Hemoglobin 9.4 g/dl (14.0-18.0); Mean Corpuscular HGB Conc 29.9 g/dl (31.0-36.0); Mean Corpuscular Hemoglobin 23.6 pg (27.0-33.0); Mean Corpuscular Volume 78.9 fL (80.0-98.0); NRBC Abs Auto 0.000 X10*3/uL (0.0-0.012); NRBC Pct Auto 0.0 /100WBC (0.0-0.2); Platelet Count 441 X10*3/uL (160-400); Red Blood Count 3.98 X10*6/uL (4.60-5.80); White Blood Count 7.6 X10*3/uL (4.8-10.8)
[2025-09-08 08:00] VITALS: BP 154/69; PULSE 76; RESP 12; TEMP 36.1; O2SAT 99
--- NOTE | 2025-09-08 08:23 | HO.PM.IMPN ---
Subjective Subjective Date of Service: 09/08/25 Interval History: no complaints Physical Exam Vital Signs: Vital Signs: Last Vital Signs Temp 97.0 F 09/08/25 08:00 Pulse 76 09/08/25 08:00 Resp 12 09/08/25 08:00 BP 154/69 H 09/08/25 08:00 Pulse Ox 99 09/08/25 08:00 O2 Del Method Room Air 09/08/25 08:00 BMI result Body Mass Index 34.9 Const: General: cooperative, healthy appearing and no acute distress Orientation/consciousness: oriented to person, oriented to place and oriented to time HEENT: Head: Yes normal to inspection Neck: Carotids: no bruits Chest: Chest palpation & inspection: normal inspection of the chest Resp: Effort & Inspection: normal respiratory effort and able to speak in complete sentences Auscultation: clear to auscultation bilaterally Cardio: Rate: regular rate Heart sounds: S1 normal heart sound present and S2 normal heart sound present GI: Inspection: Yes normal to inspection Skin: Other: Right trans met flap central portion with slight duskiness but overall appears to be doing relatively well. Dressing changed General skin exam: no rashes or lesions noted Wounds: no wounds Neuro: General: oriented to person, oriented to place, oriented to time and CN's II-XI intact bilaterally Extrem: General: Yes normal to inspection, Yes full ROM and Yes no clubbing, cyanosis or edema Psych: Appearance: grossly normal and well kempt Speech and movement: Normal speech and movement present Affect: normal affect Objective Data Active Medications Acetaminophen (Acetaminophen 325 Mg Tablet) 975 mg PO Q6H PRN PRN Reason: Pain, Mild 1-3,fever,headache Aspirin (Aspirin Enteric Coated 81 Mg Tablet.) 81 mg PO DAILY [facility] Last Admin: 09/07/25 08:36 Dose: 81 mg Documented By: ASH Atorvastatin Calcium (Atorvastatin Calcium 80 Mg Tablet) 80 mg PO DAILY [facility] Last Admin: 09/07/25 08:36 Dose: 80 mg Documented By: ASH Benzonatate (Benzonatate 100 Mg Capsule) 100 mg PO TID [facility] Last Admin: 09/07/25 20:52 Dose: 100 mg Documented By: PHILL Calcium Carbonate (Calcium Carbonate 750 Mg Tab.Chew) 750 mg PO Q4H PRN PRN Reason: Heartburn Clopidogrel Bisulfate (Clopidogrel Bisulfate 75 Mg Tablet) 75 mg PO DAILY [facility] Last Admin: 09/07/25 08:35 Dose: 75 mg Documented By: ASH Dextrose (Dextrose 50 % 25 Gm/50 Ml Syringe) 25 gm IVPUSH Q15M PRN; Protocol PRN Reason: per Hypoglycemia Standing Ord. Furosemide (Furosemide 40 Mg Tablet) 80 mg PO BIDWM [facility]; Protocol Last Admin: 09/07/25 17:33 Dose: 80 mg Documented By: ASH Glucose (Glucose Gel 15 Gm Gel..Gram.) 15 gm PO Q15M PRN; Protocol PRN Reason: per Hypoglycemia Standing Ord. Heparin Sodium (Porcine) (Heparin Sodium,Porcine 5,000 Unit/Ml Vial) 5,000 unit SUBCUT Q12H [facility] Last Admin: 09/07/25 22:41 Dose: 5,000 unit Documented By: PHILL Vancomycin HCl 750 mg/ Sodium (Chloride) 265 mls @ 265 mls/hr IV Q12H [facility] Last Infusion: 09/07/25 22:10 Dose: Infused Documented By: PHILL Piperacillin Sod/Tazobactam (Sod 4.5 gm/ Sodium Chloride) 100 mls @ 200 mls/hr IV Q6H [facility] Last Infusion: 09/08/25 04:04 Dose: Infused Documented By: JAYME Insulin Human Lispro (Insulin Lispro 100 Unit/Ml 3 Ml Vial) 0 unit SUBCUT QIDACHS [facility]; Protocol Last Admin: 09/07/25 20:54 Dose: 4 unit Documented By: PHILL Isosorbide Mononitrate (Isosorbide Mononitrate 60 Mg Tab.Er.24h) 60 mg PO DAILY [facility]; Protocol Last Admin: 09/07/25 08:36 Dose: 60 mg Documented By: ASH Loratadine (Loratadine 10 Mg Tablet) 10 mg PO DAILY [facility] Last Admin: 09/07/25 08:36 Dose: 10 mg Documented By: ASH Magnesium Hydroxide (Milk Of Magnesia 30 Ml Oral.Susp) 30 ml PO DAILY PRN PRN Reason: Constipation Melatonin (Melatonin 3 Mg Tablet) 6 mg PO BEDTIME PRN PRN Reason: Insomnia Last Admin: 09/03/25 19:49 Dose: 6 mg Documented By: BUSSIEL Metoprolol Succinate (Metoprolol Succinate Er 100 Mg Tab.Er.24h) 100 mg PO DAILY [facility]; Protocol Last Admin: 09/07/25 08:36 Dose: 100 mg Documented By: ASH Naloxone HCl (Naloxone Hcl 0.4 Mg/Ml Vial) 0.04 mg IVPUSH Q5M PRN PRN Reason: Excessive sedation or RR < 8 Ondansetron HCl (Ondansetron Hcl 4 Mg/2 Ml Vial) 4 mg IVPUSH Q8H PRN PRN Reason: Nausea and Vomiting Oxycodone HCl (Oxycodone Hcl Immed Release 5 Mg Tablet) 5 mg PO Q4H PRN PRN Reason: Pain, Moderate(Pain Scale 4-6) Last Admin: 09/08/25 07:04 Dose: 5 mg Documented By: JAYME Pharmacy Consult (Consult Rx Vancomycin Dosing) 1 each MISCELLANE DAILY PRN PRN Reason: Consult order Phenytoin Sodium (Phenytoin Sodium Extended 100 Mg Capsule) 200 mg PO BID [facility] Last Admin: 09/07/25 20:52 Dose: 200 mg Documented By: PHILL Pregabalin (Pregabalin 150 Mg Capsule) 300 mg PO BID [facility] Last Admin: 09/07/25 20:52 Dose: 300 mg Documented By: PHILL Sodium Chloride (0.9 % Sodium Chloride Flush 3 Ml Syringe) [facility] Last Admin: 09/08/25 07:04 Dose: 3 ml Documented By: JAYME Tamsulosin HCl (Tamsulosin Hcl 0.4 Mg Capsule) 0.4 mg PO DAILY [facility] Last Admin: 09/07/25 08:36 Dose: 0.4 mg Documented By: ASH Tramadol HCl (Tramadol Hcl 50 Mg Tablet) 50 mg PO Q6H PRN PRN Reason: Pain, Moderate(Pain Scale 4-6) Vitamin D (Cholecalciferol (Vitamin D3) 25 Mcg Tablet) 25 mcg PO DAILY [facility] Last Admin: 09/07/25 08:36 Dose: 25 mcg Documented By: ASH Labs 09/08/25 07:04 09/08/25 07:04 Labs: Laboratory Results - last 24 hr 09/07/25 09/07/25 09/07/25 11:29 16:17 19:10 MCV MCH MCHC RDW Plt Count MPV Absolute Nucleated RBC Nucleated RBC % (auto) Anion Gap Estim Creat Clear Calc Estimated GFR POC Glucose 229 H 155 H Random Glucose Calcium Magnesium Random Vancomycin 16.8 09/07/25 09/08/25 20:18 07:04 MCV 78.9 L MCH 23.6 L MCHC 29.9 L RDW 18.7 H Plt Count 441 H MPV 10.7 Absolute Nucleated RBC 0.000 Nucleated RBC % (auto) 0.0 Anion Gap 13 Estim Creat Clear Calc 62.7 Estimated GFR > 60 POC Glucose 202 H Random Glucose 162 H Calcium 8.7 Magnesium 2.3 Random Vancomycin Microbiology Microbiology Results: Microbiology 09/02/25 17:37 Blood Culture - Final Blood - Venous No growth after 5 days. 09/02/25 17:37 Blood Culture - Final Blood - Venous No growth after 5 days. Assessment and Plan (1) Diabetes mellitus, type 2: Status: Acute Plan 85M PMH epilepsy, unspecified dementia, DM, pvd, karen, hld, htn, cad, hfpef, presented with fevers and amp site drainage and erythema Sepsis due to acute osteomyelitis due to diabetes and peripheral vascular disease Vancomycin Zosyn s/p right foot TMA 09/04/25 vascular following acute hypokalemia replaced epilepsy dilantin DM insulin cad dapl statin karen does not use cpap Epilepsy Continue phenytoin dvt porphylaxis -hep sq full code reason for continued hospitalization:vascular follow up Quality Stroke Does the patient have a stroke diagnosis?: No VTE Prior VTE?: No VTE Risk Level:: Medical - moderate - high VTE Device Contraindication: Treatment Not Indicated VTE Drug Contraindication: N/A - Med Ordered
--- NOTE | 2025-09-08 08:26 | P.DS_ITS ---
DS: Providers Provider Date of Service: 09/09/25 Date of admission: 09/02/25 22:40 Date of discharge: 09/09/25 Primary care physician: Pushpa Ruvalcaba MD Consults: 09/02/25 22:44 Consult to Infectious Diseases Routine Consulting Provider: [facility] Reason for consultation: wound infection recent amputation Consult to Vascular Surgery Routine Consulting Provider: [facility] Vascular Services Reason for consultation: necrotic toes, recent amputation, wound infected Has provider been notified: No DS: Diagnosis Discharge Diagnosis (1) Diabetes mellitus, type 2: Status: Acute DS: Summary Hospital Course Hospital Course: from initial hpi: 85-year-old Divehi-speaking male with a past medical history significant for seizure disorder, dementia, insulin-dependent diabetes, hypertension, obesity, TIARA (no CPAP), HLD, CAD, HFpEF and multiple amputations with Dr. Marques, who presented to the ED due to acute infection at recent amputation site of the right foot. It is unclear the patient has been experiencing a fever but was sent by wound care. He is having increased pain in the right foot with purulent and malodorous drainage. hospital course: Patient was admitted for sepsis due to acute osteomyelitis due to diabetes and peripheral vascular disease. Was treated with vancomycin and Zosyn. Underwent right foot transmetatarsal amputation on 09/04/2025 postop period was unremarkable. Was seen by vascular recommended follow up in 2 weeks and 10 day course of cephalexin on discharge. Adequate margins are suspected so IV antibiotics have been discontinued. For acute hypokalemia received replacement. For epilepsy was continued on phenytoin. For diabetes was continued on insulin. For coronary artery disease was continued on dual antiplatelet and statin. For TIARA patient is noncompliant with CPAP. Patient is medically stable and will be discharged home. Time Attestation Discharge Coordination Time (in mins): 34 Quality: Safe Use of Opioids Does Pt have an Active Cancer Diagnosis on the Problem List?: No Quality: Stroke Does the patient have a stroke diagnosis?: No Physical Exam Vital Signs: Vital Signs: Last Vital Signs Temp 97.0 F 09/08/25 08:00 Pulse 76 09/08/25 08:00 Resp 12 09/08/25 08:00 BP 154/69 H 09/08/25 08:00 Pulse Ox 99 09/08/25 08:00 O2 Del Method Room Air 09/08/25 08:00 BMI result Body Mass Index 34.9 Const: General: cooperative, healthy appearing and no acute distress O rientation/consciousness: oriented to person, oriented to place and oriented to time HEENT: Head: Yes normal to inspection Neck: Carotids: no bruits Chest: Chest palpation & inspection: normal inspection of the chest Resp: Effort & Inspection: normal respiratory effort and able to speak in complete sentences Auscultation: clear to auscultation bilaterally Cardio: Rate: regular rate Heart sounds: S1 normal heart sound present and S2 normal heart sound present GI: Inspection: Yes normal to inspection Skin: Other: Right trans met flap central portion with slight duskiness but overall appears to be doing relatively well. Dressing changed General skin exam: no rashes or lesions noted Wounds: no wounds Neuro: General: oriented to person, oriented to place, oriented to time and CN's II-XI intact bilaterally Extrem: General: Yes normal to inspection, Yes full ROM and Yes no clubbing, cyanosis or edema Psych: Appearance: grossly normal and well kempt Speech and movement: Normal speech and movement present Affect: normal affect DS: Data Data Completed and Pending Completed studies during hospitalization [Text1]: Procedures Detachment at Right 1st Toe, Complete, Open Approach (08/04/25) Detachment at Right 4th Toe, Complete, Open Approach (08/04/25) Insertion of Endotracheal Airway into Trachea, Via Natural or Artificial Opening Endoscopic (05/18/21) Respiratory Ventilation, Less than 24 Consecutive Hours (05/18/21) Pending studies at discharge: Pending at discharge 09/04/25 17:38 Surgical [PTH] Routine Labs on day of discharge: Laboratory Results - last 24 hr 09/07/25 09/07/25 09/07/25 11:29 16:17 19:10 WBC RBC Hgb Hct MCV MCH MCHC RDW Plt Count MPV Absolute Nucleated RBC Nucleated RBC % (auto) Sodium Potassium Chloride Carbon Dioxide Anion Gap BUN Creatinine Estim Creat Clear Calc Estimated GFR POC Glucose 229 H 155 H Random Glucose Calcium Magnesium Random Vancomycin 16.8 09/07/25 09/08/25 20:18 07:04 WBC 7.6 RBC 3.98 L Hgb 9.4 L Hct 31.4 L MCV 78.9 L MCH 23.6 L MCHC 29.9 L RDW 18.7 H Plt Count 441 H MPV 10.7 Absolute Nucleated RBC 0.000 Nucleated RBC % (auto) 0.0 Sodium 143 Potassium 3.2 L D Chloride 107 Carbon Dioxide 26 Anion Gap 13 BUN 14 Creatinine 0.93 Estim Creat Clear Calc 62.7 Estimated GFR > 60 POC Glucose 202 H Random Glucose 162 H Calcium 8.7 Magnesium 2.3 Random Vancomycin Discharge Plan Discharge Anticipated Discharge Date/Time: 09/08/25 08:24 Patient Disposition: Xfer SNF Discharge Diagnosis: sepsis, om Referrals: [facility] [Outside] - 1 Week Referral Note: TRANSFER FOR SHORT TERM REHAB Pushpa Ruvalcaba MD [Primary Care Provider, Internal Medicine] - 1 Week John Marques MD [Physician, Vascular Surgery] - 1 Week Discharge Medications: New cephalexin 500 mg capsule 500 mg PO BID Qty: 20 0RF Continued furosemide 80 mg tablet 80 mg PO BID Qty: 180 1RF isosorbide mononitrate 60 mg tablet extended release 24 hr 60 mg PO DAILY Qty: 90 3RF Praluent Pen 75 mg/mL pen injector 75 mg subcut Q2W Qty: 2 5RF cholecalciferol (vitamin D3) [Vitamin D3] 25 mcg (1,000 unit) capsule 25 mcg PO DAILY Qty: 90 1RF clopidogrel [Plavix] 75 mg tablet 75 mg PO DAILY Qty: 90 1RF pantoprazole [Protonix] 20 mg Tablet,Delayed Release (Dr/Ec) 20 mg PO DAILY@0630 tamsulosin 0.4 mg capsule 0.4 mg PO DAILY sertraline 25 mg tablet 25 mg PO DAILY PRN (Reason: mood) insulin glargine [Lantus Solostar U-100 Insulin] 100 unit/mL (3 mL) insulin pen 26 unit subcut BEDTIME insulin aspart U-100 [Novolog FlexPen U-100 Insulin] 100 unit/mL (3 mL) insulin pen 14 unit subcut TID oxycodone 5 mg Tablet 5 mg PO Q4H PRN (Reason: Pain, Moderate(Pain Scale 4-6)) 5 Days Qty: 30 0RF Rx Instructions: Partial Fill upon patient request. benzonatate 100 mg capsule 100 mg PO TID loratadine 10 mg tablet 10 mg PO DAILY (DME) blood sugar diagnostic Strip See Rx Instructions Not Applicable TID Qty: 10 Rx Instructions: As directed aspirin [Adult Low Dose Aspirin] 81 mg tablet,delayed release (DR/EC) 81 mg PO DAILY rosuvastatin 40 mg tablet 40 mg PO DAILY (DME) pen needle, diabetic [BD Ultra-Fine Nicole Pen Needle] 32 gauge x 5/32 needle See Rx Instructions .ROUTE .MEDSUPPLY Qty: 150 11RF Rx Instructions: As directed five times a day (DME) pen needle, diabetic [BD Nicole 2nd Gen Pen Needle] 32 gauge x 5/32 needle See Rx Instructions .MEDSUPPLY Qty: 200 10RF Rx Instructions: 5 times a day (DME) lancets [FreeStyle Lancets] 28 gauge misc See Rx Instructions .ROUTE TID Qty: 100 Rx Instructions: As directed Jardiance 25 mg tablet 25 mg PO DAILY phenytoin sodium extended [Dilantin Extended] 100 mg capsule 200 mg PO BID 90 Days Qty: 360 1RF metoprolol succinate 100 mg tablet extended release 24 hr 100 mg PO DAILY pregabalin 300 mg capsule 300 mg PO BID ezetimibe 10 mg tablet 10 mg PO DAILY Discontinued sulfamethoxazole-trimethoprim [Bactrim DS] 800-160 mg tablet 1 tab PO BID 7 Days Qty: 14 0RF Discharge Orders: Discharge Order (Routine); Ordered 09/08/25 Ordered By: Paul Nieto Diet: Advance to usual diet Activity on Discharge: As tolerated Stand Alone Forms: Patient Portal Discharge page Print Language: Divehi Activity Restrictions/Additional Instructions: Wound care upon discharge: xeroform, 4x4 and Kerlix wrap to be changed daily. Please call Dr. Marques at [phone] for 2 week follow up for suture and staple removal Care Plan Goals: recovery Health Concerns: s/p tma Plan of Treatment: 10 days keflex, follow up with vascular Assessment: see above
--- NOTE | 2025-09-08 08:28 | W.MHC.F2F ---
Service Date Service Date: 09/08/25 Encounter Date of encounter: 09/08/25 Reasons for Services Signs and symptoms assessed: Recent TMA unable to ambulate Reason for senior care: medication management, medication treatment and teach disease management Homebound: Leaving the home is medically contraindicated at this time without the asist of a device and/or another person due th the listed conditions above and below. Reason homebound: unsteady gait / fall risk Certification: Based on the above findings, I certify that this patient is confined to the home and needs intermittent senior care care, physical therapy and/or speech therapy, or continues to need occupational therapy. The patient is under my care, and I have initiated the establishment of the plan of care. The patient will be followed by a physician who will periodically review the plan of care. Time Spent With Patient Time: Total time managing care of this patient today ____ minutes.
[2025-09-08] MEDS: Potassium Chloride ER 20 MEQ TAB.ER.PRT 40 MEQ PO (08:45)
[2025-09-08] MEDS: Aspirin Enteric Coated 81 MG TABLET.DR PO (08:45)
[2025-09-08] MEDS: Metoprolol Succinate ER 100 MG TAB.ER.24H PO (08:46)
[2025-09-08 10:46] LABS: Glucose, Whole Blood 166 mg/dL (60-115)
[2025-09-08 11:43] LABS: Glucose, Whole Blood 212 mg/dL (60-115)
--- NOTE | 2025-09-08 14:01 | MHC.CM.PN ---
EMR REVIEWED AND PER MD ROUNDS, PT IS MEDICALLY CLEARED FOR DC. FAMILY IS UNABLE TO TAKE PT HOME UNTIL STRONGER, P.T. REC. 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 [facility] HAS OFFERED A BED PENDING INSURANCE AUTH AND IS AWARE. RN UPDATED. CM WILL AWAITI INSURANCE AUTH TO BE OBTAINED. FINAL IMM ISSUED.
[2025-09-08 15:06] VITALS: BP 139/65; PULSE 96; RESP 18; TEMP 36.1; O2SAT 95
[2025-09-08 15:52] LABS: Glucose, Whole Blood 160 mg/dL (60-115)
--- NOTE | 2025-09-08 16:04 | P.PNID_ITS ---
Subjective Subjective Date of Service: 09/08/25 Critical Care Time (minutes): 15 Comment: He seems to be feeling better Objective Data Labs 09/08/25 07:04 09/08/25 07:04 Labs: Laboratory Results - last 24 hr 09/07/25 09/07/25 09/07/25 16:17 19:10 20:18 WBC RBC Hgb Hct MCV MCH MCHC RDW Plt Count MPV Absolute Nucleated RBC Nucleated RBC % (auto) Sodium Potassium Chloride Carbon Dioxide Anion Gap BUN Creatinine Estim Creat Clear Calc Estimated GFR POC Glucose 155 H 202 H Random Glucose Calcium Magnesium Random Vancomycin 16.8 09/08/25 09/08/25 09/08/25 07:04 07:49 11:35 WBC 7.6 RBC 3.98 L Hgb 9.4 L Hct 31.4 L MCV 78.9 L MCH 23.6 L MCHC 29.9 L RDW 18.7 H Plt Count 441 H MPV 10.7 Absolute Nucleated RBC 0.000 Nucleated RBC % (auto) 0.0 Sodium 143 Potassium 3.2 L D Chloride 107 Carbon Dioxide 26 Anion Gap 13 BUN 14 Creatinine 0.93 Estim Creat Clear Calc 62.7 Estimated GFR > 60 POC Glucose 166 H 212 H Random Glucose 162 H Calcium 8.7 Magnesium 2.3 Random Vancomycin 09/08/25 15:48 WBC RBC Hgb Hct MCV MCH MCHC RDW Plt Count MPV Absolute Nucleated RBC Nucleated RBC % (auto) Sodium Potassium Chloride Carbon Dioxide Anion Gap BUN Creatinine Estim Creat Clear Calc Estimated GFR POC Glucose 160 H Random Glucose Calcium Magnesium Random Vancomycin Microbiology Microbiology Results: Microbiology 09/02/25 17:37 Blood - Venous Blood Culture - Final No growth after 5 days. 09/02/25 17:37 Blood - Venous Blood Culture - Final No growth after 5 days. Physical Exam 2 Vital Signs: Vital Signs: Last Vital Signs Temp 97.0 F 09/08/25 15:06 Pulse 96 09/08/25 15:06 Resp 18 09/08/25 15:06 BP 139/65 09/08/25 15:06 Pulse Ox 95 09/08/25 15:06 O2 Del Method Room Air 09/08/25 15:06 BMI result Body Mass Index 34.9 Const: General: cooperative HEENT: Head: Yes normal to inspection Face and sinus: Yes normal facial exam Mouth: Normal oral and palatal mucosa present Teeth and gingiva: d entition normal Eyes: General: appearance normal, both eyes and all related structures P upils: Equal, round and reactive pupils present Resp: Effort & Inspection: normal respiratory effort Cardio: Rate: regular rate Rhythm: regular rhythm GI: Palpation (GI): Soft to palpation and nontender : General: Yes no CVA tenderness Back/Spine/Pelvis: Back: no CVA tenderness Skin: General skin exam: no rashes or lesions noted Neuro: General: moves all extremities Cranial nerves: Yes Equal, round and reactive pupils present Extrem: Other: good healing amp site General: Yes normal to inspection Psych: Appearance: grossly normal Assessment and Plan Assessment and plan (1) Status post amputation of toe of right foot: Problem details: s/p amputation transmet right foot,improving Status: Acute Plan Would agree with kesonia 7-10d superficial cellutis resolving Time Spent With Patient Time: Total time managing care of this patient today ____ minutes.
[2025-09-08 19:10] VITALS: BP 131/60; PULSE 96; RESP 18; TEMP 36.1; O2SAT 96
[2025-09-08 20:33] LABS: Glucose, Whole Blood 144 mg/dL (60-115)
[2025-09-09 04:00] VITALS: BP 141/64; PULSE 78; RESP 18; TEMP 36.6; O2SAT 96
--- NOTE | 2025-09-09 06:36 | PC.NURSE ---
Patient with male purewick overnight with very little urine. 2300; per charting patient's male purewick emptied for 600 mls. Bladder scan this morning at 0600 shows 931 mls. Daina Holman notified. Order for straight cath. Straigth cath with 850 mls yellow urine. Patient tolerated well.
[2025-09-09 07:46] VITALS: BP 135/67; PULSE 74; RESP 12; TEMP 36.2; O2SAT 99
[2025-09-09 07:55] LABS: Glucose, Whole Blood 156 mg/dL (60-115)
[2025-09-09] MEDS: Aspirin Enteric Coated 81 MG TABLET.DR PO (08:05)
[2025-09-09] MEDS: Metoprolol Succinate ER 100 MG TAB.ER.24H PO (08:05)
--- NOTE | 2025-09-09 09:01 | MHC.CM.PN ---
DP: [facility] HAS OBTAINED INSURANCE AUTH. BLS TRANSPORT BOOKED FOR 11 AM VIA [facility]. 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
[2025-09-09 10:54] VITALS: BP 120/58; PULSE 82; RESP 14; TEMP 36.3; O2SAT 96
[2025-09-09 10:56] LABS: Glucose, Whole Blood 207 mg/dL (60-115)
== END 2025-09-09 11:26 | disposition skilled nursing facility (03) | DRG 474 ==
LOC: HO.ED 22:45 → HO.EDOVER 23:00 → HO.S3 09-03 10:21
PROVIDERS: Hospitalist; Physician Assistant Medical; Registered Nurse Emergency; Surgery Vascular Surgery; Admitting Provider Physician Assistant; Emergency Provider Emergency Medicine; PCP Internal Medicine; Visit Provider Internal Medicine
PROC: 0Y6M0ZB Detachment at Right Foot, Partial 2nd Ray, Open Approach (ICD-10-PCS; CPT 28805; principal; 2025-09-04 17:00)
DX: T87.43 Infection of amputation stump, right lower extremity (principal); A41.9 Sepsis, unspecified organism; I50.32 Chronic diastolic (congestive) heart failure; E11.52 Type 2 diabetes mellitus with diabetic peripheral angiopathy with gangrene; M86.171 Other acute osteomyelitis, right ankle and foot; I25.10 Atherosclerotic heart disease of native coronary artery without angina pectoris; F03.90 Unspecified dementia, unspecified severity, without behavioral disturbance, psychotic disturbance, mood disturbance, and anxiety; G40.909 Epilepsy, unspecified, not intractable, without status epilepticus; G47.33 Obstructive sleep apnea (adult) (pediatric); Z95.5 Presence of coronary angioplasty implant and graft; E66.812 Obesity, class 2; E11.69 Type 2 diabetes mellitus with other specified complication; G89.18 Other acute postprocedural pain; Z68.34 Body mass index [BMI] 34.0-34.9, adult; D64.9 Anemia, unspecified; Z71.3 Dietary counseling and surveillance; Z87.891 Personal history of nicotine dependence; Z79.4 Long term (current) use of insulin; Z79.02 Long term (current) use of antithrombotics/antiplatelets; Z79.82 Long term (current) use of aspirin; Z79.620 Long term (current) use of immunosuppressive biologic; Z79.899 Other long term (current) drug therapy
CPT/HCPCS: 36415; 73630; 80048; 80053; 80202; 82248; 82565; 82947; 83605; 83735; 85025; 85027; 85610; 85652; 86140; 87040; 88305; 88311; 97162; 97530; 99284; 99285; J0665; J1100; J1644; J2003; J2270; J2543; J3010; J3374; J3480; J7120

== ENCOUNTER → 2025-09-02 20:22 | Outpatient (BNV) | payer OTHER, SELFPAY | PROVIDERS: Emergency Provider Emergency Medicine; PCP Internal Medicine; Visit Provider Student in an Organized Health Care Education/Training Program | DX: M79.671 Pain in right foot (principal) | CPT/HCPCS: 73630 ==

== ENCOUNTER → 2025-09-02 22:40 | Outpatient (BNV) | payer OTHER, SELFPAY | PROVIDERS: Admitting Provider Physician Assistant; Emergency Provider Emergency Medicine; PCP Internal Medicine; Visit Provider Internal Medicine | DX: E11.9 Type 2 diabetes mellitus without complications (principal) | CPT/HCPCS: 99223; 99231; 99233; 99499 ==

== ENCOUNTER → 2025-09-02 22:40 | Outpatient (BNV) | payer OTHER, SELFPAY | PROVIDERS: Admitting Provider Physician Assistant; Emergency Provider Emergency Medicine; PCP Internal Medicine; Visit Provider Surgery Vascular Surgery | DX: E11.621 Type 2 diabetes mellitus with foot ulcer (principal); L97.518 Non-pressure chronic ulcer of other part of right foot with other specified severity; T87.43 Infection of amputation stump, right lower extremity; Z89.411 Acquired absence of right great toe | CPT/HCPCS: 28805; 99222 ==

== ENCOUNTER → 2025-09-02 22:40 | Outpatient (BNV) | payer OTHER, SELFPAY | PROVIDERS: Admitting Provider Physician Assistant; Emergency Provider Emergency Medicine; PCP Internal Medicine; Visit Provider Internal Medicine | DX: E11.628 Type 2 diabetes mellitus with other skin complications (principal); L08.9 Local infection of the skin and subcutaneous tissue, unspecified | CPT/HCPCS: 99222; 99232 ==

== ENCOUNTER 2025-09-18 09:21 | Outpatient (AMB) | payer OTHER, SELFPAY ==
--- OUTSIDE RECORDS SUMMARY | 2025-05-01 03:30 | XMS_ITS ---
Author Organization [facility] Address [address] [place] [address] Care Team Providers Care Glass Rolling Machine Operator Name Role Phone Pushpa Ruvalcaba Primary Care Provider Unavailab Dulce Cartwright Unavailable [phone] Pushpa Ruvalcaba Unavailable Unavailable Mi Contreras Unavailable [phone] REASON FOR VISIT no INTENSIVE CARE NURSE ppwrk Encounters Encounter Location Date Provider Diagnosis [facility] [address] [place] [address] 05/01/2025 Mi Contreras Plan Of Treatment No Information Progress Notes * Andres WEINSTEIN ADOB:[birth year] (85 yo M)Acc No.[id number]:05/01/2025 Progress Notes Patient: Agatha Andres GRAHAM Provider: Timi Contreras DPM :1940 A ge:85 Y S ex:Male Date:05/01/2025 Address:[address] [place], [place] [id number] Pcp:Pushpa Ruvalcaba Subjective: * Chief Complaints: * 1 . no INTENSIVE CARE NURSE ppwrk. * Medical History: Objective: * Vitals: Assessment: Plan: * Treatment: * Images: * The named appointment provid er may or may not be the originator of this progress note, and it is not deemed complete until electronically signed by the appointment provider. Sign off status: Pending * Provider: Timi Contreras, DPAnna Date: 0 05/01/2025 Generated for Bill duque/Carin/Jessica on: 11/18/2024 12:10 PM EST
--- OUTSIDE RECORDS SUMMARY | 2025-09-15 05:15 | XMS_ITS ---
[facility] Organization [facility] Address [address] [place] [address] Care Team Providers Care Direct Service Professional Name Role Phone Pushpa Ruvalcaba Primary Care Provider Unavailab Dulce Cartwright Unavailable [phone] Pushpa Ruvalcaba Unavailable Unavailable REASON FOR VISIT Dr Mcnally Encounters Encounter Location Date Provider Diagnosis [facility] [address] [place] [address] 09/15/2025 Dulce Laureano Plan Of Treatment No Information Progress Notes * Andres MORALES ADOB:[birth year] (85 yo M)Acc No.[id number]:09/15/2025 Progress Note Patient: Agatha BALESAndres HAILE Provider: Maricarmen Laureano DPM :1940 A ge:85 Y S ex:Male Date:09/15/2025 Address:[address] [place] [address] Pcp:Pushpa Ruvalcaba Subjective: * Chief Complaints: * [address]nally. * Medical History: Objective: * Vitals: Assessment: Plan: * Treatment: * Images: * The named appointment provid er may or may not be the originator of this progress note, and it is not deemed complete until electronically signed by the appointment provider. Sign off status: Pending * Provider: Maricarmen Laureano DPM Date: 11/15/2024 Generated for Bill duque/Carin/Jessica on: 11/18/2024 12:10 PM EST
--- NOTE | 2025-09-18 09:43 | MHC.OFFVIS ---
Intake Visit Reasons: 2 week follow up sutures/anai removal Intake Note: 2 week follow up Right transmet amp 09/04/25, pt currently at [facility]. 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 The patient reports experiencing pain upon stepping, but is otherwise not in a lot of pain. The patient's overall pain has improved. The patient is currently residing in a senior care. [facility] Medical History GERD (gastroesophageal reflux disease) Seizures History of recent vascular procedure (07/23/25) Mass of buttock Left buttock abscess Epidermal cyst Obesity due to excess calories CHF (congestive heart failure) Hypokalemia Diabetic nephropathy associated with type 2 diabetes mellitus CHF (congestive heart failure) Epilepsy Type 2 diabetes mellitus with hyperglycemia, with long-term current use of insulin Secondary hyperparathyroidism Diabetic neuropathy associated with type 2 diabetes mellitus CAD (coronary artery disease) (HFpEF) heart failure with preserved ejection fraction Hypertension Coronary stent patent BPH (benign prostatic hyperplasia) Dyslipidemia Neuropathy associated with endocrine disorder CKD (chronic kidney disease) Diabetes mellitus, type 2 Surgical History H/O colonoscopy Stented coronary artery Hx of cardiac cath Family History Father Diabetes CVD (cardiovascular disease) Mother Diabetes CVD (cardiovascular disease) Brother Diabetes Son Thyroid disease Lung disease Psoriasis HTN (hypertension) Social History Household Members: Spouse Housing: Apartment Are you a primary before and after school daycare worker to a significant other at home: No Alcohol intake: never Patient Tobacco Use Status: Former Tobacco user Tobacco use type: Cigarette Advance Directives Date on File: 05/18/21 service: No Current occupational status: retired Review of Systems Const All systems reviewed & are unremarkable except as noted in HPI and below Reports no additional complaints ENT Reports Normal hearing present Card Denies chest pain, Denies chest pain at rest, Denies chest pain with activity and Denies pedal edema Resp Denies cough GI Denies abdominal pain Musc Denies abnormal gait, Denies muscle cramps and Denies radiating pain into limb Skin/Breast Denies skin ulcer and Denies wounds Neuro Reports Normal hearing present and Denies abnormal gait Psych Reports no additional complaints Physical Exam Const General: cooperative, healthy appearing and comfortable Orientation/consciousness: oriented to person, oriented to place and oriented to time HEENT Head: Yes normal to inspection Neck Neck: Yes normal visual inspection Carotids: no bruits Chest Chest palpation & inspection: normal inspection of the chest Resp Effort & Inspection: normal respiratory effort and able to speak in complete sentences Auscultation: clear to auscultation bilaterally, no crackles, no rales, no rhonchi and no wheezes Cardio Rate: regular rate Rhythm: regular rhythm Heart sounds: S1 normal heart sound present and S2 normal heart sound present Bruits: no carotid bruits Peripheral pulses: Peripheral pulses 2+ throughout GI Inspection: Yes normal to inspection Skin Other: Right lateral aspect of the trans met amp has a dry eschar measuring 6 x 1.8 cm. There is greater than 50% take of the flap. Wounds: amputation site Hair: normal Neuro General: oriented to person, oriented to place and oriented to time Cranial nerves: Yes CN's II-XII intact bilaterally and Yes Normal hearing present Cognition (Neuro): normal cognition Motor exam (neuro): 5/5 motor strength present throughout Extrem Other: venous exam: No significant superficial varicosities or spider telangiectasias, minimal edema General: No clubbing, No cyanosis and No edema Psych Appearance: grossly normal Mental Status: mental status grossly normal Speech and movement: Normal speech and movement present Assessment & Plan Assessment & Plan (1) PAD (peripheral artery disease): Comment: 07/23/2025 - right peroneal plasty 08/04/2025 - right great and 4th toe amputation 09/04/2025 - right transmetatarsal amputation Code(s): I73.9 - Peripheral vascular disease, unspecified Category: Medical Plan: In short patient appears to be doing reasonably well with the amp. Unfortunately the flap is not a complete take. We will continue with local wound care and the patient can follow up with us in approximately 2 weeks' time. Sutures and anai were removed. Plan Patient was informed and verbally consented to the use of an ambient scribe for clinic note documentation during this visit. Patient Instructions: - Your foot wound is healing but will need more time to close completely. - We have removed your anai and stitches today. - The pain you feel when you walk should get better over time. Coding Level of Care Code Est Pt Level 4 (49791) Diagnoses PAD (peripheral artery disease) I73.9
--- OUTSIDE RECORDS SUMMARY | 2025-09-18 12:10 | XMS_ITS | Patient Health Record ---
Author Organization [facility] Address [address] [place] [address] Care Team Providers Care S[employer] Specialties Cook Name Role Phone Pushpa Ruvalcaba Primary Care Provider Son Romero Unavailable [phone] Allergies Allergen (clinical drug ingredient) Drug/Non Drug Allergy documented on EMR Reaction Allergy Type Onset Date Status lisinopril Lisinopril Unknown Drug Allergy Activ e Tylenol/Codeine #3 Unknown Drug Allergy Active Reason For Referral No Information Medications Medication SIG (Take, Route, Frequency, Duration) Notes Start Date End Date Status Phenytoin Sodium Extended 100 MG Capsule TOME MARTHA C?PSULAS POR V?A ORAL DOS VECES AL D?A Oral; Duration: 90 Active Valsartan-hydroCHLOROthiaz micki 320-25 MG Tablet TOME SERGO TABLETA POR V?A ORAL TODOS LOS D? Oral; Duration: 90 Active NovoLOG 100 UNIT/ML Solution INJECT 30 UNITS TWICE A DAY ANTES DE LAS COMIDAS Subcutaneous; Duration: 50 Activ e Omeprazole 20 MG Capsule Delayed Release 1 capsule Orally Once a day for heartburn; Duration: 30 day(s) 10/19/2017 Active Zetia 10 MG Tablet 1 tablet Orally Once a day Active Tresiba FlexTouch 200 UNIT/ML Solution Pen-injector INJECT 105 UNITS A DIARIO Subcutaneous; Duration: 34 Activ e Phenytoin Sodium 100 MG 3 ORAL BID Active Zantac 75 75 MG Tablet 2 tablets Orally QD Active Dilantin 100 MG Capsule 3capsule Orally TWO times a day Active Crestor 40 MG Tablet 1 tablet Orally Once a day Active Metoprolol Succinate ER 50 MG Tablet Extended Release 24 Hour 1 tablet Orally Once a day A ctive Aspirin 81 MG Tablet Delayed Release TOME SERGO TABLETA POR V?A ORAL TODOS LOS D? Oral; Duration: 30 Active Aspir-81 81 MG Tablet Delayed Release 1 tablet Orally Once a day Active Immunizations Vaccine Route Administration Date Status Comme nts Influenza Unknown 06/30/2017 Administered Social History Tobacco Use: Social History Observation Description Date Details (start date - stop date) Former Smoker NA - NA Social History Tobacco Use: Social Info Question Answer Notes Tobacco Use/Smoking Patient is a former smoker How long has it been since you last smoked? > 10 years Additional Details Category Social Info Options Details Miscellaneous: Marital status: Occupation: Disabled Section Notes: Nonsmoker; no alcohol Nonsmoker; no alcohol Problems Problem Type SNOMED Code ICD Code Onset Dates Problem Status W/U Status Risk Notes Problem Abdominal bloating (042317187) Abdominal bloating (R14.0) Active confirmed Problem Gastroesophageal reflux disease without esophagitis (467634220) Gastroesophageal reflux disease without esophagitis (K21.9) Active confirmed Plan Of Treatment Future Test Test Name Order Date COLONOSCOPY 03/14/2013 Insurance Providers Payer Name Payer Address Payer Phone Subscriber Number Group Number Insured Name Patient Relationship to Insured Coverage Start Date Coverage End Date MEDICARE OF [place] [address] [place] [id number] MORALES Self - patient is the insured MEDICAID OF [facility] [address] [place] [id number] MORAL[place] Self - patient is the insured Medical (General) History Medical History History ICD Code GERD-EGD in 12/2001-small HH-no Sanchez's nor sig. esophagitis Tubular adenoma removed in 12/2001 Hyperlipidemia IDDM Seizure disorder Denies OR,CVA,Lung disease,renal disease Decreased hearing in both ears HTN Colonoscopy in04/2013--negative except fo r diverticulosis
--- OUTSIDE RECORDS SUMMARY | 2025-09-18 12:10 | XMS_ITS | Clinical Summary ---
Author Organization [facility] Address [address] [place] [address] Phone Care Team Providers Care Strategic Consultant Name Role Phone Pushpa Ruvalcaba MD Primary [...] Medicaid [place] Medicare [place] Care Teams Strategic Consultant Relationship Specialty Start Date End Date Pushpa Ruvalcaba MD [facility] [address] PCP - General 11/09/20
--- OUTSIDE RECORDS SUMMARY | 2025-09-18 12:11 | XMS_ITS | Patient Health Record ---
Author Organization [facility] Sara Mazaley Address [address] [place] [address] Care Team Providers Care Vice President Education Name Role Phone Pushpa Ruvalcaba Primary Care Provider Unavailab Dulce Cartwright Unavailable [phone] Pushpa Ruvalcaba Unavailable Unavailable Mi Contreras Unavailable [phone] Allergies No Known Allergies Results Component Value Reference Range Notes HEMOGLOBIN A1C (GLYCOHEMOGLO BIN) Reviewed date:05/29/2025 09:43:31 AM Interpretation: Performing Lab: Notes/Report: HEMOGLOBIN A1C % (HH) 6.7 Reason For Referral Diagnosis 1 Type 2 diabetes juan ramon itus with diabetic polyneuropathy (E11.42) Referring Provider First Name Pushpa Referring Provider Last Name Peg [facility] Referred Provider Dulce Laureano Referred Address [address], [place],[address], Referred Provider Specialty Podiatry Referral Priority Routine [...] Polyneuropathy due to type 2 diabetes mellitus (469949284) Type 2 diabetes mellitus with diabetic polyneuropathy (E11.42) Active confirmed Problem Foot ulcer due to type 2 diabetes mellitus (7606956582711) Type 2 diabetes mellitus with foot ulcer (E11.621) Active confirmed Problem Bilateral atherosclerosis of arteries of lower limbs (disorder) (10035687147596290 ) Atherosclerosis of [place] artery of both lower extremities, with unspecified [...] Ordered Date Performed Result Body Sit e 37501-SNKDTYQ NAIL, 6 OR MORE 05/29/2025 N/A 29169-KOYU SKIN LESIONS, 2 TO 4 05/29/2025 N/A Encounters Encounter Location Date Provider Diagnosis [facility] [address] [place] [address] 05/29/2025 Dulce Black Type 2 diabetes mellitus with diabetic polyneuropathy E11.42 ; Tinea unguium B35.1 ; Atherosclerosis of [place] artery of both lower extremities, with unspecified presence of clinical manifestation I70.203 ; 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 L97.514 ; 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.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 and Type 2 diabetes mellitus with foot ulcer E11.621 [facility] [address] [place] [address] 04/24/2025 [facility] [address] [place] [address] 05/29/2025 Dulce Laureano [facility] [address] [place] [address] 07/22/2025 Dulceanup Laureano [facility] [address] [address] 09/15/2025 Dulce Laureano Assessments Encounter Date Diagnosis (ICD Code) Assessment Notes Treatment Notes Treatment Clinical Notes Section Notes 05/29/2025 Tinea unguium (ICD-10 - B35.1) 05/29/2025 Type 2 diabetes mellitus with diabetic polyneuropathy (ICD-10 - E11.42) 05/29/2025 Atherosclerosis of [place] artery of both lower extremities, with unspecified [...] Treatment Pending Test Test Name Order Date [id number]-[id number] NAIL, 6 OR MORE 05/29/2025 17951-[id number] SKIN LESIONS, 2 TO 4 05/29/20 25 Insurance Providers Payer Name Payer Address Payer Phone Subscriber Number Group Number Insured Name Patient Relationship to Insured Coverage Start Date Coverage End Date [facility] [address] [place] [phone] [id number] Andres Weinstein Self - patient is the insured Medical (General) History Medical History History ICD Code Diabetic High Blood Pressure Seizures Lumbar radiculopathy Congestive heart failure edema CLD
== END 2025-09-18 10:01 | disposition home or self-care (01) ==
LOC: HO.HVS 09:22
PROVIDERS: PCP Internal Medicine; Visit Provider Surgery Vascular Surgery
DX: I73.9 Peripheral vascular disease, unspecified (principal)
CPT/HCPCS: 99024

== ENCOUNTER → 2025-09-18 09:21 | Outpatient (BNVA) | payer OTHER, SELFPAY | PROVIDERS: PCP Internal Medicine; Visit Provider Surgery Vascular Surgery | DX: Z48.02 Encounter for removal of sutures (principal); I73.9 Peripheral vascular disease, unspecified | CPT/HCPCS: 99212 ==

== ENCOUNTER → 2025-09-22 13:34 | Outpatient (BNVA) | payer OTHER, SELFPAY | PROVIDERS: PCP Internal Medicine; Visit Provider Internal Medicine | DX: Z98.890 Other specified postprocedural states (principal); Z89.411 Acquired absence of right great toe; Z89.421 Acquired absence of other right toe(s) | CPT/HCPCS: 99212 ==

== ENCOUNTER 2025-09-22 13:51 | Outpatient (AMB) | payer OTHER, SELFPAY ==
--- NOTE | 2025-09-22 13:39 | MHC.OFFVIS ---
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 [facility] [place] reff/list/Wound infectio: Details: He has area wound stump still failing to heal,no opposing skin [facility] Medical History GERD (gastroesophageal reflux disease) Seizures History of recent vascular procedure (07/23/25) Mass of buttock Left buttock abscess Epidermal cyst Obesity due to excess calories CHF (congestive heart failure) Hypokalemia Diabetic nephropathy associated with type 2 diabetes mellitus CHF (congestive heart failure) Epilepsy Type 2 diabetes mellitus with hyperglycemia, with long-term current use of insulin Secondary hyperparathyroidism Diabetic neuropathy associated with type 2 diabetes mellitus CAD (coronary artery disease) (HFpEF) heart failure with preserved ejection fraction Hypertension Coronary stent patent BPH (benign prostatic hyperplasia) Dyslipidemia Neuropathy associated with endocrine disorder CKD (chronic kidney disease) Diabetes mellitus, type 2 Surgical History H/O colonoscopy Stented coronary artery Hx of cardiac cath Family History Father Diabetes CVD (cardiovascular disease) Mother Diabetes CVD (cardiovascular disease) Brother Diabetes Son Thyroid disease Lung disease Psoriasis HTN (hypertension) Social History Household Members: Spouse Housing: Apartment Are you a primary rn patient care to a significant other at home: No Alcohol intake: never Patient Tobacco Use Status: Former Tobacco user Tobacco use type: Cigarette Advance Directives Date on File: 05/18/21 service: No Current occupational status: retired Review of Systems Const All systems reviewed & are unremarkable except as noted in HPI and below Physical Exam Vital Signs: Last Vital Signs Temp 97.7 F 09/22/25 14:05 Pulse 68 09/22/25 14:05 Pulse Ox 99 09/22/25 14:05 Oxygen Delivery Method Room Air 09/22/25 14:05 Const Other: General: cooperative HEENT Head: Yes normal to inspection Face and sinus: Yes normal facial exam Mouth: Normal oral and palatal mucosa present Teeth and gingiva: dentition normal Eyes General: appearance normal, both eyes and all related structures Pupils: Equal, round and reactive pupils present Resp Effort & Inspection: normal respiratory effort Cardio Rate: regular rate Rhythm: regular rhythm GI Palpation (GI): Soft to palpation and nontender General: Yes no CVA tenderness Back/Spine/Pelvis Back: no CVA tenderness Skin General skin exam: no rashes or lesions noted Neuro General: moves all extremities Cranial nerves: Yes Equal, round and reactive pupils present Extrem Other: per picture Psych Appearance: grossly normal Assessment & Plan Assessment & Plan (1) Status post amputation of right great toe: Comment: Area still looks macerated but no cellulitis Code(s): Z89.411 - Acquired absence of right great toe Category: Surgical Plan: See us prn need Follow Vascular (2) Status post amputation of toe of right foot: Comment: s/p amputation transmet right foot,improving Code(s): Z89.421 - Acquired absence of other right toe(s) Category: Surgical Plan: as above Coding Level of Care Code Est Pt Level 3 (41133) Diagnoses Status post amputation of right great toe Z89.411 Status post amputation of toe of right foot Z89.421
[2025-09-22 14:05] VITALS: PULSE 68; TEMP 36.5; O2SAT 99
--- OUTSIDE RECORDS SUMMARY | 2025-09-22 18:22 | XMS_ITS | Clinical Summary ---
Author Organization [address] [facility] Address [address] [place] [address] Phone Care Team Providers Care Manager Environmental Services Name Role Phone Mary Davis MD Primary Care Provider [phone] Encounters Date Type Department Care Team Description 09/18/[address] [facility] - Main Lab [address] [facility] [place] [address] Mary Davis MD Vitamin B12 deficiency anemia, unspecified; Type 2 diabetes mellitus without complications ([facility] V24, [facility] V28); Vitamin D deficiency, unspecified; Hyperlipidemia, unspecified; Other seizures ([facility] V24, [facility] V28); Osteomyelitis, unspecified ([facility] V24[facility] V28) 09/16/[address] [facility] - Main Lab [address] [facility] [place] [address] Mary Davis MD Heart failure, unspecified ([facility] V24, [facility] V28); Sepsis, unspecified organism ([facility] V24, [facility] V28); Vitamin B12 deficiency anemia, unspecified; Vitamin D deficiency, unspecified; Hyperlipidemia, unspecified; Unspecified dementia, unspecified severity, without behavioral disturbance, psychotic disturbance, mood disturbance, and anxiety ([facility] V24, [facility] V28); [facility] seizures ([facility] V24[facility] V28); Osteomyelitis, unspecified ([facility] V24, [facility] V28); Type 2 diabetes mellitus without complications ([facility] V24, [facility] V28) from Last 3 Months Social History Tobacco Use Types Packs/Day Years Used Date Smoking Tobacco: Never Assessed Sex and Gender Information Value Date Recorded Sex Assigned at Not on file Legal Sex Male 10:01 AM EST Gender Identity Not on file Sexual Orientation Not on file Plan of Treatment Health Maintenance Due Date Last Done Comments Diabetes: Annual Foot Exam 1950 Diabetes: Annual Retina Eye Exam 1950 DTaP,Tdap,and Td Vaccines (1 - Tdap) 01/13/1960 Pneumococcal Vaccine: 50+ Years (1 of 2 - PCV) 01/13/1960 Zoster Vaccines (1 of 2) 1991 RSV Immunization Adult Patients (1 - 1-dose 75+ series) 01/13/2016 Depression Screening 10/30/2024 COVID-19 Vaccine (3 - 2024-2 6 season) 2025 03/10/2021, 02/10/2021 Influenza Vaccine (#1) 2025 Diabetes: Annual Urine Albumin-Creatinine Ratio (uACR) 09/18/2025 Falls Risk Assessment 09/18/2025 Medicare Annual Wellness Visit 09/18/2025 Social Influencers of Health Screening 09/18/2025 Diabetes: Blood Sugar Contro l Test (HGBA1C) 03/17/2026 09/17/2025 Diabetes: Annual GFR (Glomerular Filtration Rate) 09/19/2026 09/19/2025, 09/17/2025 Hypertension/CHF/CAD Annual BMP Blood Test 09/19/2026 09/19/2025, 09/17/2025 Cholesterol Screening (Lipid Panel) 09/17/2030 09/17/2025 HIB Vaccines Aged Out No longer eligi ble based on patient's age to complete this topic HPV Vaccines Aged Out No longer eligi ble based on patient's age to complete this topic Hepatitis A Vaccines Aged Out No long er eligible based on patient's age to complete this topic Hepatitis B Vaccines Aged Out No long er eligible based on patient's age to complete this topic IPV Vaccines Aged Out No longer eligi ble based on patient's age to complete this topic MMR Vaccines Aged Out No longer eligi ble based on patient's age to complete this topic Meningococcal ACWY Vaccine Aged Out N o longer eligible based on patient's age to complete this topic Meningococcal B Vaccine Aged Out No l onger eligible based on patient's age to complete this topic RSV Immunization Patients Under 20 months Aged Out No longer eligible b ased on patient's age to complete this topic Varicella Vaccines Aged Out No longer eligible based on patient's age to complete this topic Procedures Procedure Name Priority Date/Time Associated Diagnosis Comments BASIC METABOLIC PANEL Routine 09/19/2025 6:11 AM EST Vitamin B12 deficiency anemia, unspecified Type 2 diabetes mellitus without complications ([facility] V24, [facility] V28) Vitamin D deficiency, unspecified Hyperlipidemia, unspecified Other seizures ([facility] V24, [facility] V28) Osteomyelitis, unspecified ([facility] V24, [facility] V28) COMPLETE BLOOD COUNT Routine 09/19/2025 6:11 AM EST Vitamin B12 deficiency anemia, unspecified Type 2 diabetes mellitus without complications ([facility] V24, [facility] V28) Vitamin D deficiency, unspecified Hyperlipidemia, unspecified Other seizures ([facility] V24, [facility] V28) Osteomyelitis, unspecified ([facility] V24, [facility] V28) VITAMIN D 25 HYDROXY Routine 09/17/2025 5:51 AM EST Heart failure, unspecified ([facility] V24, [facility] V28) Sepsis, unspecified organism ([facility] V24, [facility] V28) Vitamin B12 deficiency anemia, unspecified Vitamin D deficiency, unspecified Hyperlipidemia, unspecified Unspecified dementia, unspecified severity, without behavioral disturbance, psychotic disturbance, mood disturbance, and anxiety ([facility] V24, [facility] V28) Other seizures ([facility] V24, [facility] V28) Osteomyelitis, unspecified ([facility] V24, [facility] V28) Type 2 diabetes mellitus without complications ([facility] V24, [facility] V28) LIPID PANEL WITH REFLEX TO DIRECT LDL Routine 09/17/2025 5:51 AM EST Heart failure, unspecified ([facility] V24, [facility] V28) Sepsis, unspecified organism ([facility] V24, [facility] V28) Vitamin B12 deficiency anemia, unspecified Vitamin D deficiency, unspecified Hyperlipidemia, unspecified Unspecified dementia, unspecified severity, without behavioral disturbance, psychotic disturbance, mood disturbance, and anxiety ([facility] V24, [facility] V28) Other seizures ([facility] V24, [facility] V28) Osteomyelitis, unspecified ([facility] V24, [facility] V28) Type 2 diabetes mellitus without complications ([facility] V24, [facility] V28) FOLATE Routine 09/17/2025 5:51 AM EST Heart failure, unspecified ([facility] V24, [facility] V28) Sepsis, unspecified organism ([facility] V24, [facility] V28) Vitamin B12 deficiency anemia, unspecified Vitamin D deficiency, unspecified Hyperlipidemia, unspecified Unspecified dementia, unspecified severity, without behavioral disturbance, psychotic disturbance, mood disturbance, and anxiety ([facility] V24, [facility] V28) Other seizures ([facility] V24, [facility] V28) Osteomyelitis, unspecified ([facility] V24, [facility] V28[facility] Type 2 diabetes mellitus without complications ([facility] V24, [facility] V28) PHENYTOIN LEVEL, TOTAL Routine 09/17/2025 5:51 AM EST Heart failure, unspecified ([facility] V24, [facility] V28) Sepsis, unspecified organism ([facility] V24, [facility] V28) Vitamin B12 deficiency anemia, unspecified Vitamin D deficiency, unspecified Hyperlipidemia, unspecified Unspecified dementia, unspecified severity, without behavioral disturbance, psychotic disturbance, mood disturbance, and anxiety ([facility] V24, [facility] V28) Other seizures ([facility] V24[facility] V28) Osteomyelitis, unspecified ([facility] V24, [facility] V28[facility] Type 2 diabetes mellitus without complications ([facility] V24, [facility] V28) COMPREHENSIVE METABOLIC PANEL Routine 09/17/2025 5:51 AM EST Heart failure, unspecified ([facility] V24, [facility] V28) Sepsis, unspecified organism [facility], [facility] V28) Vitamin B12 deficiency anemia, unspecified Vitamin D deficiency, unspecified Hyperlipidemia, unspecified Unspecified dementia, unspecified severity, without behavioral disturbance, psychotic disturbance, mood disturbance, and anxiety ([facility] V24, [facility] V28) Other seizures ([facility] V24, [facility] V28) Osteomyelitis, unspecified ([facility] V24, [facility] V28) Type 2 diabetes mellitus without complications ([facility] V24, [facility] V28) COMPLETE BLOOD COUNT Routine 09/17/2025 5:51 AM EST Heart failure, unspecified ([facility] V24, [facility] V28) Sepsis, unspecified organism ([facility] V24, [facility] V28) Vitamin B12 deficiency anemia, unspecified Vitamin D deficiency, unspecified Hyperlipidemia, unspecified Unspecified dementia, unspecified severity, without behavioral disturbance, psychotic disturbance, mood disturbance, and anxiety ([facility] V24, [facility] V28) Other seizures ([facility] V24, [facility] V28) Osteomyelitis, unspecified ([facility] V24, [facility] V28) Type 2 diabetes mellitus without complications ([facility] V24, [facility] V28) VITAMIN B12 Routine 09/17/2025 5:51 AM EST Heart failure, unspecified ([facility] V24, [facility] V28) Sepsis, unspecified organism ([facility] V24, [facility] V28) Vitamin B12 deficiency anemia, unspecified Vitamin D deficiency, unspecified Hyperlipidemia, unspecified Unspecified dementia, unspecified severity, without behavioral disturbance, psychotic disturbance, mood disturbance, and anxiety ([facility] V24, [facility] V28) Other seizures ([facility] V24, [facility] V28) Osteomyelitis, unspecified ([facility] V24, [facility] V28[facility] Type 2 diabetes mellitus without complications ([facility] V24, [facility] V28) HEMOGLOBIN A1C Routine 09/17/2025 5:51 AM EST Heart failure, unspecified ([facility] V24, [facility] V28) Sepsis, unspecified organism ([facility] V24, [facility] V28) Vitamin B12 deficiency anemia, unspecified Vitamin D deficiency, unspecified Hyperlipidemia, unspecified Unspecified dementia, unspecified severity, without behavioral disturbance, psychotic disturbance, mood disturbance, and anxiety ([facility] V24, [facility] V28) Other seizures ([facility] V24, [facility] V28) Osteomyelitis, unspecified ([facility] V24, [facility] V28[facility] Type 2 diabetes mellitus without complications ([facility] V24[facility] V28) from Last 3 Months Results * (ABNORMAL) Complete blood count (09/19/2025 6:11 AM EST) Only the most recent of2 resultswithin the time period is included. WBC 5.7 4.8 - 10.8 K/mcL LAB HEMETOLOGY METHOD 09/19/2025 9:17 AM [facility] RBC 3.50(L) 4.50 - 5.50 M/mcL LAB HEMETOLOGY METHOD 09/19/2025 9:17 AM [facility] Hemoglobin 8.2(L) 13.5 - 17.5 g/dL LAB HEMETOLOGY METHOD 09/19/2025 9:17 AM [facility] Hematocrit 26.8(L) 42.0 - 54.0 % LAB HEMETOLOGY METHOD 09/19/2025 9:17 AM [facility] MCV 77.5(L) 79.0 - 98.0 FL LAB HEMETOLOGY METHOD 09/19/2025 9:17 AM [facility] MCH 23.7(L) 27.0 - 32.0 pcg LAB HEMETOLOGY METHOD 09/19/2025 9:17 AM [facility] MCHC 30.6(L) 32.0 - 37.0 g/dL LAB HEMETOLOGY METHOD 09/19/2025 9:17 AM [facility] RDW 18.2(H) 11.0 - 15.0 % LAB HEMETOLOGY METHOD 09/19/2025 9:17 AM [facility] Platelets 410(H) 130 - 400 K/mcL LAB HEMETOLOGY METHOD 09/19/2025 9:17 AM [facility] MPV 9.8 7.0 - 11.0 FL LAB HEMETOLOGY METHOD 09/19/2025 9:[address] [facility] NRBC 0.0 <1.0 % LAB HEMETOLOGY METHOD 09/19/2025 9:[address] [facility] NRBC Absolute 0.00 <0.10 K/mcL LAB HEMETOLOGY METHOD 09/19/2025 9:17 AM [facility] Blood Venous blood specimen / Unknown Venipuncture / Unknown 09/19/2025 6:11 AM EST 09/19/2025 9:16 AM EST us Mary Davis MD LAB BLOOD ORDERABLES Final Resul t [facility] [address] [place] [address], [place] [phone] * (ABNORMAL) Basic metabolic panel (09/19/2025 6:11 AM EST) Sodium 141 133 - 145 mmol/L 09/19/2025 10:16 AM [facility] Potassium 3.5 3.5 - 5.5 mmol/L 09/19/2025 10:16 AM [facility] Chloride 102 96 - 110 mmol/L 09/19/2025 10:16 AM [facility] CO2 29 21 - 32 mmol/L 09/19/2025 10:16 AM [facility] Anion Gap 10 3 - 11 09/19/2025 10:16 AM [facility] Glucose 101(H) 70 - 100 mg/dL 09/19/2025 10:16 AM [facility] BUN 24 5 - 25 mg/dL 09/19/2025 10:16 AM [facility] Creatinine 1.13 0.70 - 1.30 mg/dL 09/19/2025 10:16 AM [facility] eGFR 64 >=60 mL/min/1. 73m2 09/19/2025 10:16 AM [facility] Comment:Calculation based on the Chronic Kidney Disease Epidemiology Collaboration (CKD-EPI) equation refit without adjustment for race. BUN/Creatinine Ratio 21.2 09/19/2025 10:16 AM [facility] Calcium 8.0(L) 8.5 - 10.5 mg/dL 09/19/2025 10:16 AM [facility] Blood Venous blood specimen / Unknown Venipuncture / Unknown 09/19/2025 6:11 AM EST 09/19/2025 9:16 AM EST Mary Davis MD LAB BLOOD ORDERABLES Final Resul t [facility] [address] [place] [address], * Lipid panel with reflex to direct LDL (09/17/2025 5:51 AM EST) Cholesterol 103 0 - 200 mg/dL 09/17/2025 12:08 PM [facility] Triglycerides 115 0 - 150 mg/dL 09/17/2025 12:08 PM [facility] HDL 41 >=40 mg/dL 09/17/2025 12:08 PM [facility] LDL Calculated 39 0 - 100 mg/dL 09/17/2025 12:08 PM [facility] Comment:Estimated LDL Calcul ated using equation: Total cholesterol - HDL cholesterol - (Triglycerides/5) VLDL Cholesterol Moise 23 mg/dL 09/17/2025 12:08 PM [facility] Non HDL Chol. (LDL+VLDL) 62 <145 mg/dL 09/17/2025 12:08 PM [facility] Chol/HDL Ratio 2.5 0.0 - 4.4 09/17/2025 12:[address] [facility] Blood Venous blood specimen / Unknown Venipuncture / Unknown 09/17/2025 5:51 AM EST 09/17/2025 9:38 AM EST us Mary Davis MD LAB BLOOD ORDERABLES Final Resul t Performing Organization Address City/[facility]/ZIP Co de Phone Number [facility] [address] [place] [address], [place] [phone] * Vitamin D 25 hydroxy (09/17/2025 5:51 AM EST) Vit D, 25-Hydroxy 34.6 30.0 - 80.0 ng/mL 09/17/2025 12:[address] [facility] Blood Venous blood specimen / Unknown Venipuncture / Unknown 09/17/2025 5:51 AM EST 09/17/2025 9:38 AM EST us Mary Davis MD LAB BLOOD ORDERABLES Final Resul t Performing Organization Address [facility] de Phone Number [facility] [address] [place] [address], [place] [phone] * (ABNORMAL) Hemoglobin A1c (09/17/2025 5:51 AM EST) Hemoglobin A1C 8.1(H) <6.5 % LAB CHEMISTRY METHOD 09/17/2025 11:[address] [facility] Mean Bld Glu Estim. 186 mg/dL LAB CHEMISTRY METHOD 09/17/2025 11:[address] [facility] Blood Venous blood specimen / Unknown Venipuncture / Unknown 09/17/2025 5:51 AM EST 09/17/2025 9:38 AM EST us Mary Davis MD LAB BLOOD ORDERABLES Final Resul t [facility] [address] [place] [address], [place] [phone] * Folate (09/17/2025 5:51 AM EST) [facility] Folate 8.9 >=5.4 ng/ml 09/17/2025 12:[address] [facility] Blood Venous blood specimen / Unknown Venipuncture / Unknown 09/17/2025 5:51 AM EST 09/17/2025 9:[address] [facility] - 09/17/2025 12:05 PM EST Over the counter supplements containing high doses of biotin may interfere with this assay. If interference is suspected, patients shoud be retested after refraining from biotin supplements for 72 hours. us Mary Davis MD LAB BLOOD ORDERABLES Final Resul t [facility] [address] [place] [address], [place] [phone] * Vitamin B12 (09/17/2025 5:51 AM EST) [facility] Vitamin B-12 372 211 - 911 pcg/mL 09/17/2025 12:[address] [facility] Blood Venous blood specimen / Unknown Venipuncture / Unknown 09/17/2025 5:51 AM EST 09/17/2025 9:38 AM EST us Mary Davis MD LAB BLOOD ORDERABLES Final Resul t [facility] [address] [place] [address], [place] [phone] * (ABNORMAL) Phenytoin level total (09/17/2025 5:51 AM EST) [facility] Phenytoin Level 9.9(L) 10.0 - 20.0 mcg/mL 09/17/2025 12:08 PM [facility] Blood Venous blood specimen / Unknown Venipuncture / Unknown 09/17/2025 5:51 AM EST 09/17/2025 9:38 AM EST us Mary Davis MD LAB BLOOD ORDERABLES Final Resul t [facility] [address] [place] [address], * (ABNORMAL) Comprehensive metabolic panel (09/17/2025 5:51 AM EST) Sodium 144 133 - 145 mmol/L 09/17/2025 12:21 PM [facility] Potassium 3.2(L) 3.5 - 5.5 mmol/L 09/17/2025 12:21 PM [facility] Chloride 105 96 - 110 mmol/L 09/17/2025 12:21 PM [facility] CO2 28 21 - 32 mmol/L 09/17/2025 12:21 PM [facility] Anion Gap 11 3 - 11 09/17/2025 12:21 PM [facility] Glucose 126(H) 70 - 100 mg/dL 09/17/2025 12:21 PM [facility] BUN 21 5 - 25 mg/dL 09/17/2025 12:21 PM [facility] Creatinine 0.97 0.70 - 1.30 mg/dL 09/17/2025 12:21 PM [facility] eGFR 77 >=60 mL/min/1. 73m2 09/17/2025 12:21 PM [facility] Comment:Calculation based on the Chronic Kidney Disease Epidemiology Collaboration (CKD-EPI) equation refit without adjustment for race. BUN/Creatinine Ratio 21.6 09/17/2025 12:21 PM [facility] Calcium 8.2(L) 8.5 - 10.5 mg/dL 09/17/2025 12:21 PM [facility] AST (SGOT) 19 10 - 42 unit/L 09/17/2025 12:21 PM [facility] ALT (SGPT) 12 10 - 60 unit/L 09/17/2025 12:21 PM [facility] Alkaline Phosphatase 92 42 - 121 unit/L 09/17/2025 12:21 PM [facility] Total Protein 5.8(L) 6.0 - 8.0 g/dL 09/17/2025 12:21 PM [facility] Albumin 2.7(L) 3.2 - 5.0 g/dL 09/17/2025 12:21 PM [facility] Total Bilirubin 0.2 0.0 - 1.4 mg/dL 09/17/2025 12:21 PM [facility] Blood Venous blood specimen / Unknown Venipuncture / Unknown 09/17/2025 5:51 AM EST 09/17/2025 9:38 AM EST us Mary Davis MD LAB BLOOD ORDERABLES Final Resul t [facility] [address] [place] [address], from Last 3 Months Insurance [id number] [place] [address] [employer] Care Teams Manager Environmental Services Relationship Specialty Start Date End Date Mary Davis MD [address] [facility] [address] [place] [address] PCP - General Geriatric Medicine 09/18/25
--- OUTSIDE RECORDS SUMMARY | 2025-09-22 18:23 | XMS_ITS | Encounter Summary ---
Author Organization [employer] [facility] Address [address] [place] [address] Care Team Providers Care Transfer Professor Name Role Phone Mary Davis MD Primary Care Provider [phone] Encounter Details Date Type Department Care Team (Late st Contact Info) Description 09/18/2025 Lab Requisition [facility] - Main Lab [address] [facility] [place] [address] Mary Davis MD [address] [place], [place] [id number] Vitamin B12 deficiency anemia, unspecified; Type 2 diabetes mellitus without complications (CMS/HCC V24, CMS/HCC V28); Vitamin D deficiency, unspecified; Hyperlipidemia, unspecified; Other seizures (CMS/HCC V24, CMS/HCC V28); Osteomyelitis, unspecified (CMS/HCC V24, CMS/HCC V28) Social History Tobacco Use Types Packs/Day Years Used Date Smoking Tobacco: Never Assessed Sex and Gender Information Value Date Recorded Sex Assigned at Not on file Legal Sex Male 10:01 AM EST Gender Identity Not on file Sexual Orientation Not on file documented as of this encounter Plan of Treatment Not on file documented as of this encounter Procedures Procedure Name Priority Date/Time Associated Diagnosis Comments COMPLETE BLOOD COUNT Routine 09/19/2025 6:11 AM EST Vitamin B12 deficiency anemia, unspecified Type 2 diabetes mellitus without complications (CMS/HCC V24, CMS/HCC V28) Vitamin D deficiency, unspecified Hyperlipidemia, unspecified Other seizures (CMS/HCC V24, CMS/HCC V28) Osteomyelitis, unspecified (CMS/HCC V24, CMS/HCC V28) BASIC METABOLIC PANEL Routine 09/19/2025 6:11 AM EST Vitamin B12 deficiency anemia, unspecified Type 2 diabetes mellitus without complications (CMS/HCC V24, [facility] V28) Vitamin D deficiency, unspecified Hyperlipidemia, unspecified Other seizures ([facility] V24, [facility] V28) Osteomyelitis, unspecified ([facility] V24, [facility] V28) documented in this encounter Results * (ABNORMAL) Basic metabolic panel (09/19/2025 6:11 AM EST) Sodium 141 133 - 145 mmol/L 09/19/2025 10:16 AM [facility] Potassium 3.5 3.5 - 5.5 mmol/L 09/19/2025 10:16 AM [facility] Chloride 102 96 - 110 mmol/L 09/19/2025 10:16 AM [facility] CO2 29 21 - 32 mmol/L 09/19/2025 10:16 AM [facility] Anion Gap 10 3 - 11 09/19/2025 10:16 AM [facility] Glucose 101(H) 70 - 100 mg/dL 09/19/2025 10:16 AM [facility] BUN 24 5 - 25 mg/dL 09/19/2025 10:16 AM [facility] Creatinine 1.13 0.70 - 1.30 mg/dL 09/19/2025 10:16 AM [facility] eGFR 64 >=60 mL/min/1. 73m2 09/19/2025 10:16 AM [facility] Comment:Calculation based on the Chronic Kidney Disease Epidemiology Collaboration (CKD-EPI) equation refit without adjustment for race. BUN/Creatinine Ratio 21.2 09/19/2025 10:16 AM [facility] Calcium 8.0(L) 8.5 - 10.5 mg/dL 09/19/2025 10:16 AM [facility] Blood Venous blood specimen / Unknown Venipuncture / Unknown 09/19/2025 6:11 AM EST 09/19/2025 9:16 AM EST Mary Davis MD LAB BLOOD ORDERABLES Final Resul t [facility] [address] [place] [address], [place] [phone] * (ABNORMAL) Complete blood count (09/19/2025 6:11 AM EST) Pathologist [facility] WBC 5.7 4.8 - 10.8 K/mcL LAB HEMETOLOGY METHOD 09/19/2025 9:17 AM [facility] RBC 3.50(L) 4.50 - 5.50 M/mcL LAB HEMETOLOGY METHOD 09/19/2025 9:17 AM [facility] Hemoglobin 8.2(L) 13.5 - 17.5 g/dL LAB HEMETOLOGY METHOD 09/19/2025 9:17 AM [facility] Hematocrit 26.8(L) 42.0 - 54.0 % LAB HEMETOLOGY METHOD 09/19/2025 9:17 AM [facility] MCV 77.5(L) 79.0 - 98.0 FL LAB HEMETOLOGY METHOD 09/19/2025 9:17 AM [facility] MCH 23.7(L) 27.0 - 32.0 pcg LAB HEMETOLOGY METHOD 09/19/2025 9:17 AM [facility] MCHC 30.6(L) 32.0 - 37.0 g/dL LAB HEMETOLOGY METHOD 09/19/2025 9:17 AM [facility] RDW 18.2(H) 11.0 - 15.0 % LAB HEMETOLOGY METHOD 09/19/2025 9:17 AM [facility] Platelets 410(H) 130 - 400 K/mcL LAB HEMETOLOGY METHOD 09/19/2025 9:17 AM EST [facility] MPV 9.8 7.0 - 11.0 FL LAB HEMETOLOGY METHOD 09/19/2025 9:17 AM EST [facility] NRBC 0.0 <1.0 % LAB HEMETOLOGY METHOD 09/19/2025 9:17 AM EST [facility] NRBC Absolute 0.00 <0.10 K/mcL LAB HEMETOLOGY METHOD 09/19/2025 9:17 AM EST [facility] Blood Venous blood specimen / Unknown Venipuncture / Unknown 09/19/2025 6:11 AM EST 09/19/2025 9:16 AM EST Mary Davis MD LAB BLOOD ORDERABLES Final Resul t [facility] [address] [place] [address], documented in this encounter Visit Diagnoses Diagnosis Vitamin B12 deficiency anemia, unspecified Type 2 diabetes mellitus without complications (CMS/HCC V24, [facility] V28) Vitamin D deficiency, unspecified Hyperlipidemia, unspecified Other seizures (CMS/HCC V24, [facility] V28) Osteomyelitis, unspecified (CMS/HCC V24, [facility] V28) documented in this encounter Care Teams Transfer Professor Relationship Specialty Start Date End Date Mray Davis MD [address] [place] [address] [address] [place] [address] PCP - General Geriatric Medicine 09/18/25 documented as of this encounter
--- OUTSIDE RECORDS SUMMARY | 2025-09-22 18:23 | XMS_ITS | Encounter Summary ---
Author Organization [facility] Address [address] [place] [address] Care Team Providers Care Home Mission Worker Name Role Phone Mary Davis MD Primary Care Provider [phone] Encounter Details Date Type Department Care Team (Late st Contact Info) Description 09/16/2025 Lab Requisition [facility] - Main Lab [address] [facility] [place] [address] Mary Davis MD [address] [place] [address] Heart failure, unspecified ([facility] V24, [facility] V28); Sepsis, unspecified organism ([facility] V24, [facility] V28); Vitamin B12 deficiency anemia, unspecified; Vitamin D deficiency, unspecified; Hyperlipidemia, unspecified; Unspecified dementia, unspecified severity, without behavioral disturbance, psychotic disturbance, mood disturbance, and anxiety ([facility] V24, [facility] V28); Other seizures ([facility] V24, [facility] V28); Osteomyelitis, unspecified ([facility] V24, [facility] V28); Type 2 diabetes mellitus without complications ([facility] V24, [facility] V28) Social History Tobacco Use Types Packs/Day [...] Procedure Name Priority Date/Time Associated Diagnosis Comments LIPID PANEL WITH REFLEX TO DIRECT LDL Routine 09/17/2025 5:51 AM EST Heart failure, unspecified ([facility] V24, [facility] V28) Sepsis, unspecified organism ([facility] V24, [facility] V28) Vitamin B12 deficiency anemia, unspecified Vitamin D deficiency, unspecified Hyperlipidemia, unspecified Unspecified dementia, unspecified severity, without behavioral disturbance, psychotic disturbance, mood disturbance, and anxiety ([facility] V24, [facility] V28) Other seizures ([facility] V24, [facility] V28) Osteomyelitis, unspecified ([facility] V24, [facility] V28) Type 2 diabetes mellitus without complications ([facility] V24, [facility] V28) VITAMIN D 25 HYDROXY Routine 09/17/2025 5:51 AM EST Heart failure, unspecified ([facility] V24, [facility] V28) Sepsis, unspecified organism ([facility] V24, [facility] V28) Vitamin B12 deficiency anemia, unspecified Vitamin D deficiency, unspecified Hyperlipidemia, unspecified Unspecified dementia, unspecified severity, without behavioral disturbance, psychotic disturbance, mood disturbance, and anxiety ([facility] V24, [facility] V28) Other seizures ([facility] V24, [facility] V28) Osteomyelitis, unspecified ([facility] V24, [facility] V28) Type 2 diabetes mellitus without complications ([facility] V24, [facility] V28) COMPLETE BLOOD COUNT Routine 09/17/2025 5:51 AM EST Heart failure, unspecified ([facility] V24, [facility] V28) Sepsis, unspecified organism ([facility] V24, [facility] V28) Vitamin B12 deficiency anemia, unspecified Vitamin D deficiency, unspecified Hyperlipidemia, unspecified Unspecified dementia, unspecified severity, without behavioral disturbance, psychotic disturbance, mood disturbance, and anxiety ([facility] V24, [facility] V28) Other seizures ([facility] V24, [facility] V28) Osteomyelitis, unspecified ([facility] V24, [facility] V28) Type 2 diabetes mellitus without complications ([facility] V24, [facility] V28) HEMOGLOBIN A1C Routine 09/17/2025 5:51 AM EST Heart failure, unspecified ([facility] V24, [facility] V28) Sepsis, unspecified organism ([facility] V24, [facility] V28) Vitamin B12 deficiency anemia, unspecified Vitamin D deficiency, unspecified Hyperlipidemia, unspecified Unspecified dementia, unspecified severity, without behavioral disturbance, psychotic disturbance, mood disturbance, and anxiety ([facility] V24, [facility] V28) Other seizures ([facility] V24, [facility] V28) Osteomyelitis, unspecified ([facility] V24, [facility] V28) Type 2 diabetes mellitus without complications ([facility] V24, [facility] V28) FOLATE Routine 09/17/2025 5:51 AM EST Heart failure, unspecified ([facility] V24, [facility] V28) Sepsis, unspecified organism ([facility] V24, [facility] V28) Vitamin B12 deficiency anemia, unspecified Vitamin D deficiency, unspecified Hyperlipidemia, unspecified Unspecified dementia, unspecified severity, without behavioral disturbance, psychotic disturbance, mood disturbance, and anxiety ([facility] V24, [facility] V28) Other seizures ([facility] V24, [facility] V28) Osteomyelitis, unspecified ([facility] V24, [facility] V28) Type 2 diabetes mellitus without complications ([facility] V24, [facility] V28) VITAMIN B12 Routine 09/17/2025 5:51 AM EST Heart failure, unspecified ([facility] V24, [facility] V28) Sepsis, unspecified organism ([facility] V24, [facility] V28) Vitamin B12 deficiency anemia, unspecified Vitamin D deficiency, unspecified Hyperlipidemia, unspecified Unspecified dementia, unspecified severity, without behavioral disturbance, psychotic disturbance, mood disturbance, and anxiety ([facility] V24, [facility] V28) Other seizures ([facility] V24, [facility] V28) Osteomyelitis, unspecified ([facility] V24, [facility] V28) Type 2 diabetes mellitus without complications ([facility] V24, [facility] V28) PHENYTOIN LEVEL, TOTAL Routine 09/17/2025 5:51 AM EST Heart failure, unspecified ([facility] V24, [facility] V28) Sepsis, unspecified organism ([facility] V24, [facility] V28) Vitamin B12 deficiency anemia, unspecified Vitamin D deficiency, unspecified Hyperlipidemia, unspecified Unspecified dementia, unspecified severity, without behavioral disturbance, psychotic disturbance, mood disturbance, and anxiety ([facility] V24, [facility] V28) Other seizures ([facility] V24, [facility] V28) Osteomyelitis, unspecified ([facility] V24, [facility] V28) Type 2 diabetes mellitus without complications ([facility] V24, [facility] V28) COMPREHENSIVE METABOLIC PANEL Routine 09/17/2025 5:51 AM EST Heart failure, unspecified ([facility] V24, [facility] V28) Sepsis, unspecified organism ([facility] V24, [facility] V28) Vitamin B12 deficiency anemia, unspecified Vitamin D deficiency, unspecified Hyperlipidemia, unspecified Unspecified dementia, unspecified severity, without behavioral disturbance, psychotic disturbance, mood disturbance, and anxiety ([facility] V24, [facility] V28) Other seizures ([facility] V24, [facility] V28) Osteomyelitis, unspecified ([facility] V24, [facility] V28) Type 2 diabetes mellitus without complications ([facility] V24, [facility] V28) documented in this encounter Results * Vitamin D 25 hydroxy (09/17/2025 5:51 AM EST) [facility] Vit D, 25-Hydroxy 34.6 30.0 - 80.0 ng/mL 09/17/2025 12:05 PM EST [facility] Blood Venous blood specimen / Unknown Venipuncture / Unknown 09/17/2025 5:51 AM EST 09/17/2025 9:38 AM EST us Mary Davis MD LAB BLOOD ORDERABLES Final Resul t [facility] [address] [place] [address], * Lipid panel with reflex to direct LDL (09/17/2025 5:51 AM EST) [facility] Cholesterol 103 0 - 200 mg/dL 09/17/2025 12:08 PM EST [facility] Triglycerides 115 0 - 150 mg/dL 09/17/2025 12:08 PM EST [facility] HDL 41 >=40 mg/dL 09/17/2025 12:08 PM [facility] LDL Calculated 39 0 - 100 mg/dL 09/17/2025 12:08 PM EST [facility] Comment:Estimated LDL Calcul ated using equation: Total cholesterol - HDL cholesterol - (Triglycerides/5) VLDL Cholesterol Moise 23 mg/dL 09/17/2025 12:08 PM [facility] Non HDL Chol. (LDL+VLDL) 62 <145 mg/dL 09/17/2025 12:08 PM [facility] Chol/HDL Ratio 2.5 0.0 - 4.4 09/17/2025 12:08 PM [facility] Blood Venous blood specimen / Unknown Venipuncture / Unknown 09/17/2025 5:51 AM EST 09/17/2025 9:38 AM EST us Mary Davis MD LAB BLOOD ORDERABLES Final Resul t [facility] [address] [place] [address], * Folate (09/17/2025 5:51 AM EST) Folate 8.9 >=5.4 ng/ml 09/17/2025 12:05 PM EST [facility] Blood Venous blood specimen / Unknown Venipuncture / Unknown 09/17/2025 5:51 AM EST 09/17/2025 9:38 AM EST Narrative [facility] - 09/17/2025 12:05 PM EST Over the counter supplements containing high doses of biotin may interfere with this assay. If interference is suspected, patients shoud be retested after refraining from biotin supplements for 72 hours. us Mary Davis MD LAB BLOOD ORDERABLES Final Resul t Performing Organization Address City/[facility]/ZIP Co de Phone Number [facility] [address] [place] [address], [place] [phone] * (ABNORMAL) Phenytoin level total (09/17/2025 5:51 AM EST) [facility] Phenytoin Level 9.9(L) 10.0 - 20.0 mcg/mL 09/17/2025 12:08 PM [facility] Blood Venous blood specimen / Unknown Venipuncture / Unknown 09/17/2025 5:51 AM EST 09/17/2025 9:38 AM EST Mary Davis MD LAB BLOOD ORDERABLES Final Resul t Performing Organization Address [facility] Co de Phone Number [facility] [address] [place] [address], [place] [phone] * (ABNORMAL) Comprehensive metabolic panel (09/17/2025 5:51 AM EST) [facility] Sodium 144 133 - 145 mmol/L 09/17/2025 12:21 PM [facility] Potassium 3.2(L) 3.5 - 5.5 mmol/L 09/17/2025 12:21 PM [facility] Chloride 105 96 - 110 mmol/L 09/17/2025 12:21 PM [facility] CO2 28 21 - 32 mmol/L 09/17/2025 12:21 PM [facility] Anion Gap 11 3 - 11 09/17/2025 12:21 PM [facility] Glucose 126(H) 70 - 100 mg/dL 09/17/2025 12:21 PM [facility] BUN 21 5 - 25 mg/dL 09/17/2025 12:21 PM [facility] Creatinine 0.97 0.70 - 1.30 mg/dL 09/17/2025 12:21 PM [facility] eGFR 77 >=60 mL/min/1. 73m2 09/17/2025 12:21 PM [facility] Comment:Calculation based on the Chronic Kidney Disease Epidemiology Collaboration (CKD-EPI) equation refit without adjustment for race. BUN/Creatinine Ratio 21.6 09/17/2025 12:21 PM [facility] Calcium 8.2(L) 8.5 - 10.5 mg/dL 09/17/2025 12:21 PM [facility] AST (SGOT) 19 10 - 42 unit/L 09/17/2025 12:21 PM [facility] ALT (SGPT) 12 10 - 60 unit/L 09/17/2025 12:21 PM [facility] Alkaline Phosphatase 92 42 - 121 unit/L 09/17/2025 12:21 PM [facility] Total Protein 5.8(L) 6.0 - 8.0 g/dL 09/17/2025 12:21 PM [facility] Albumin 2.7(L) 3.2 - 5.0 g/dL 09/17/2025 12:21 PM [facility] Total Bilirubin 0.2 0.0 - 1.4 mg/dL 09/17/2025 12:21 PM [facility] Blood Venous blood specimen / Unknown Venipuncture / Unknown 09/17/2025 5:51 AM EST 09/17/2025 9:38 AM EST us Mary Davis MD LAB BLOOD ORDERABLES Final Resul t [facility] [address] [place] [address], * (ABNORMAL) Complete blood count (09/17/2025 5:51 AM EST) [facility] WBC 5.0 4.8 - 10.8 K/mcL LAB HEMETOLOGY METHOD 09/17/2025 10:49 AM [facility] RBC 3.40(L) 4.50 - 5.50 M/mcL LAB HEMETOLOGY METHOD 09/17/2025 10:49 AM [facility] Hemoglobin 8.2(L) 13.5 - 17.5 g/dL LAB HEMETOLOGY METHOD 09/17/2025 10:49 AM [facility] Hematocrit 27.4(L) 42.0 - 54.0 % LAB HEMETOLOGY METHOD 09/17/2025 10:49 AM [facility] MCV 79.9 79.0 - 98.0 FL LAB HEMETOLOGY METHOD 09/17/2025 10:49 AM [facility] MCH 23.9(L) 27.0 - 32.0 pcg LAB HEMETOLOGY METHOD 09/17/2025 10:49 AM [facility] MCHC 29.9(L) 32.0 - 37.0 g/dL LAB HEMETOLOGY METHOD 09/17/2025 10:49 AM [facility] RDW 18.9(H) 11.0 - 15.0 % LAB HEMETOLOGY METHOD 09/17/2025 10:49 AM [facility] Platelets 442(H) 130 - 400 K/mcL LAB HEMETOLOGY METHOD 09/17/2025 10:49 AM [facility] MPV 9.9 7.0 - 11.0 FL LAB HEMETOLOGY METHOD 09/17/2025 10:49 AM [facility] NRBC 0.0 <1.0 % LAB HEMETOLOGY METHOD 09/17/2025 10:49 AM EST [facility] NRBC Absolute 0.00 <0.10 K/[facility] LAB HEMETOLOGY METHOD 09/17/2025 10:49 AM EST [facility] Blood Venous blood specimen / Unknown Venipuncture / Unknown 09/17/2025 5:51 AM EST 09/17/2025 9:38 AM EST us Mary Davis MD LAB BLOOD ORDERABLES Final Resul t Performing Organization Address City/[facility]/ZIP Co de Phone Number [facility] [address] [place] [address], [place] [phone] * Vitamin B12 (09/17/2025 5:51 AM EST) Vitamin B-12 372 211 - 911 pcg/mL 09/17/2025 12:05 PM EST [facility] Blood Venous blood specimen / Unknown Venipuncture / Unknown 09/17/2025 5:51 AM EST 09/17/2025 9:38 AM EST us Mayr Daivs MD LAB BLOOD ORDERABLES Final Resul t Performing Organization Address City/[facility]/ZIP Co de Phone Number [facility] [address] [place] [address], [place] [phone] * (ABNORMAL) Hemoglobin A1c (09/17/2025 5:51 AM EST) Hemoglobin A1C 8.1(H) <6.5 % LAB CHEMISTRY METHOD 09/17/2025 11:44 AM EST [facility] Mean Bld Glu Estim. 186 mg/dL LAB CHEMISTRY METHOD 09/17/2025 11:44 AM EST [facility] Blood Venous blood specimen / Unknown Venipuncture / Unknown 09/17/2025 5:51 AM EST 09/17/2025 9:38 AM EST Mary Davis MD LAB BLOOD ORDERABLES Final Resul t [facility] [address] [place] [address], documented in this encounter Visit Diagnoses Diagnosis Heart failure, unspecified ([facility] V24, [facility] V28) Heart failure, unspecified Sepsis, unspecified organism ([facility] V24, [facility] V28) Vitamin B12 deficiency anemia, unspecified Vitamin D deficiency, unspecified Hyperlipidemia, unspecified Unspecified dementia, unspecified severity, without behavioral disturbance, psychotic disturbance, mood disturbance, and anxiety ([facility] V24, [facility] V28) Other seizures ([facility] V24, [facility] V28) Osteomyelitis, unspecified ([facility] V24, [facility] V28) Type 2 diabetes mellitus without complications ([facility] V24, [facility] V28) documented in this encounter Care Teams Home Mission Worker Relationship Specialty Start Date End Date Mary Davis MD [address] [place] [address] [address] [place] [address] PCP - General Geriatric Medicine 09/18/25 documented as of this encounter
== END 2025-09-22 14:02 | disposition home or self-care (01) ==
PROVIDERS: PCP Internal Medicine; Visit Provider Internal Medicine
DX: Z89.411 Acquired absence of right great toe (principal); Z89.421 Acquired absence of other right toe(s)
CPT/HCPCS: 99213

== ENCOUNTER 2025-10-07 08:56 | Outpatient (AMB) | payer OTHER, SELFPAY ==
--- NOTE | 2025-10-07 09:08 | MHC.OFFVIS ---
Intake Visit Reasons: 3 week follow up Intake Note: 3 wk follow up Right transmet amp 09/04/25. Pt at [facility]. Patrol Officer Required: No Accompanied by: IT APPLICATIONS ANALYST Facility Allergies codeine (CODEINE) Adverse Reaction (Severe, Verified 10/07/25 09:17) UNKNOWN lisinopril Allergy (Intermediate, Uncoded 10/07/25 09:17) choking HPI HPI 3 week follow up: Details: The patient is an 85-year-old male presenting for a follow-up on his right transmetatarsal amputation. He had his sutures and anai removed on September 04 and is currently at the [facility] rehabilitation facility. The facility reported wound tunneling and slough, and requested a surgical debridement. [facility] Medical History GERD (gastroesophageal reflux disease) Seizures History of recent vascular procedure (07/23/25) Mass of buttock Left buttock abscess Epidermal cyst Obesity due to excess calories CHF (congestive heart failure) Hypokalemia Diabetic nephropathy associated with type 2 diabetes mellitus CHF (congestive heart failure) Epilepsy Type 2 diabetes mellitus with hyperglycemia, with long-term current use of insulin Secondary hyperparathyroidism Diabetic neuropathy associated with type 2 diabetes mellitus CAD (coronary artery disease) (HFpEF) heart failure with preserved ejection fraction Hypertension Coronary stent patent BPH (benign prostatic hyperplasia) Dyslipidemia Neuropathy associated with endocrine disorder CKD (chronic kidney disease) Diabetes mellitus, type 2 Surgical History H/O colonoscopy Stented coronary artery Hx of cardiac cath Family History Father Diabetes CVD (cardiovascular disease) Mother Diabetes CVD (cardiovascular disease) Brother Diabetes Son Thyroid disease Lung disease Psoriasis HTN (hypertension) Social History Household Members: Spouse Housing: Apartment Are you a primary neonatal intensive care unit nurse to a significant other at home: No Alcohol intake: never Patient Tobacco Use Status: Former Tobacco user Tobacco use type: Cigarette Advance Directives Date on File: 05/18/21 service: No Current occupational status: retired Review of Systems Const All systems reviewed & are unremarkable except as noted in HPI and below Reports no additional complaints ENT Reports Normal hearing present Card Denies chest pain, Denies chest pain at rest, Denies chest pain with activity and Denies pedal edema Resp Denies cough GI Denies abdominal pain Musc Denies abnormal gait, Denies muscle cramps and Denies radiating pain into limb Skin/Breast Denies skin ulcer and Denies wounds Neuro Reports Normal hearing present and Denies abnormal gait Psych Reports no additional complaints Physical Exam Const General: cooperative, healthy appearing and comfortable Orientation/consciousness: oriented to person, oriented to place and oriented to time HEENT Head: Yes normal to inspection Neck Neck: Yes normal visual inspection Carotids: no bruits Chest Chest palpation & inspection: normal inspection of the chest Resp Effort & Inspection: normal respiratory effort and able to speak in complete sentences Auscultation: clear to auscultation bilaterally, no crackles, no rales, no rhonchi and no wheezes Cardio Rate: regular rate Rhythm: regular rhythm Heart sounds: S1 normal heart sound present and S2 normal heart sound present Bruits: no carotid bruits Peripheral pulses: Peripheral pulses 2+ throughout GI Inspection: Yes normal to inspection Skin Other: Right transmetatarsal amputation site has a lateral dry eschar measuring 6 x 3 cm. Relatively clean. Eschar removed. Wounds: no wounds Hair: normal Neuro General: oriented to person, oriented to place and oriented to time Cranial nerves: Yes CN's II-XII intact bilaterally and Yes Normal hearing present Cognition (Neuro): normal cognition Motor exam (neuro): 5/5 motor strength present throughout Extrem Other: venous exam: No significant superficial varicosities or spider telangiectasias, minimal edema General: No clubbing, No cyanosis and No edema Psych Appearance: grossly normal Mental Status: mental status grossly normal Speech and movement: Normal speech and movement present Assessment & Plan Assessment & Plan (1) Status post amputation of toe of right foot: Comment: s/p amputation transmet right foot,improving Code(s): Z89.421 - Acquired absence of other right toe(s) Category: Surgical Plan: I examined the patient's right foot, which is postoperative from a transmetatarsal amputation. Dry eschar was removed. The wound appears to be healing well, with more than 50% take, though there is some slough and minimal drainage. The tunneling reported by his rehab facility was not appreciated to be as deep.. I advised continuing with alginate dressings at his rehab facility and recommended he follow up in my office in approximately 4 weeks for re-evaluation. Thank you for allowing us to assist in his care. Coding Level of Care Code Est Pt Level 3 (08067) Diagnoses Status post amputation of toe of right foot Z89.421
== END 2025-10-07 09:59 | disposition home or self-care (01) ==
LOC: HO.HVS 08:57
PROVIDERS: PCP Internal Medicine; Visit Provider Surgery Vascular Surgery
DX: Z89.421 Acquired absence of other right toe(s) (principal)
CPT/HCPCS: 99024

== ENCOUNTER → 2025-10-07 08:56 | Outpatient (BNVA) | payer OTHER, SELFPAY | PROVIDERS: PCP Internal Medicine; Visit Provider Surgery Vascular Surgery | DX: Z89.421 Acquired absence of other right toe(s) (principal) | CPT/HCPCS: 99212 ==

== ENCOUNTER 2025-10-09 10:04 | Outpatient (AMB) | payer OTHER, SELFPAY ==
--- NOTE | 2025-10-09 10:27 | A.OFFVIS_ITS ---
Intake Visit Reasons: [facility] [place] ER hematuria/enlarged prostate/PVR/UA(set) Intake Note: Patient is present for [facility] ED follow up DOS 08/08/25 Urology Medication:TAMSULOSIN Antibiotic Allergy:NONE Blood Thinner:ASPIRIN Todays PVR:599 ML'S Guyline Operator Required: No Accompanied by: facility Allergies codeine (CODEINE) Adverse Reaction (Severe, Verified 10/09/25 10:29) UNKNOWN lisinopril Allergy (Intermediate, Uncoded 10/07/25 09:17) choking HPI Comments Details: Andres is a pleasant Romansh-speaking male. He is a patient of . he seen for the following urologic conditions - lower urinary tract symptoms Seen in emergency room for hematuria on July CT scan with markedly enlarged prostate Start dutasteride Six-month follow-up On Jardiance with 3+ glucose Accompanied by his son who was translating Does have urgency and recommended to decrease fluid intake after 19:00 Reduced total fluids to 1500 cc daily Lower urinary tract symptoms Longstanding Prior [employer] laser prostate 2021 Concomitant conditions include type 2 diabetes - insulin-dependent On diuretics Nocturia x3-4 PFSH Medical History GERD (gastroesophageal reflux disease) Seizures History of recent vascular procedure (07/23/25) Mass of buttock Left buttock abscess Epidermal cyst Obesity due to excess calories CHF (congestive heart failure) Hypokalemia Diabetic nephropathy associated with type 2 diabetes mellitus CHF (congestive heart failure) Epilepsy Type 2 diabetes mellitus with hyperglycemia, with long-term current use of insulin Secondary hyperparathyroidism Diabetic neuropathy associated with type 2 diabetes mellitus CAD (coronary artery disease) (HFpEF) heart failure with preserved ejection fraction Hypertension Coronary stent patent BPH (benign prostatic hyperplasia) Dyslipidemia Neuropathy associated with endocrine disorder CKD (chronic kidney disease) Diabetes mellitus, type 2 Surgical History H/O colonoscopy Stented coronary artery Hx of cardiac cath Family History Father Diabetes CVD (cardiovascular disease) Mother Diabetes CVD (cardiovascular disease) Brother Diabetes Son Thyroid disease Lung disease Psoriasis HTN (hypertension) Social History Household Members: Spouse Housing: Apartment Are you a primary child care worker to a significant other at home: No Alcohol intake: never Patient Tobacco Use Status: Former Tobacco user Tobacco use type: Cigarette Advance Directives Date on File: 05/18/21 service: No Current occupational status: retired Review of Systems Const Denies chills and Denies fever(s) Card Reports no additional complaints and Denies syncope Resp Denies cough GI Denies abdominal pain and Denies heartburn Reports as per HPI and Denies change in libido Neuro Denies syncope Psych Denies change in libido Endo Denies change in libido Physical Exam Const General: cooperative, healthy appearing, comfortable and no acute distress Orientation/consciousness: patient oriented x3 HEENT Face and sinus: Yes normal facial exam Mouth: moist mucous membranes Neck Neck: Yes normal visual inspection, Yes full ROM and Yes trachea midline Chest Chest palpation & inspection: normal inspection of the chest Resp Effort & Inspection: normal respiratory effort, able to speak in complete sentences and no respiratory distress GI Inspection: Yes normal to inspection Back/Spine/Pelvis Cervical Spine: normal cervical lordosis Thoracic/Lumbar Spine: thoracic and lumbar spine normal to inspection Skin General skin exam: no rashes or lesions noted Neuro General: patient oriented x3, gait normal, tone normal and moves all extremities Extrem General: Yes normal to inspection and Yes capillary refill normal Office Procedures Post Void Residual Post Residual Void Post Void Residual (PVR): 599 [id number]-[id number] Void Residual by ultrasound Assessment & Plan Assessment & Plan (1) BPH (benign prostatic hyperplasia): Code(s): N40.0 - Benign prostatic hyperplasia without lower urinary tract symptoms Category: Medical Plan Start dutasteride Six-month follow-up Orders: Orders AMB Post Void Residual by ultrasound Today N40.1 - Benign prostatic hyperplasia with lower urinary tract symptoms Medications: New dutasteride 0.5 mg PO DAILY 90 caps 1RF 90 days R39.15 - Urgency of urination Patient Instructions: This note is constructed using voice recognition software. While every effort has been made to ensure accuracy community support specialist errors may have been included. Imaging studies, laboratory and physical exam results were discussed and reviewed in detail. No major barriers to patient understanding were identified. An opportunity to ask questions regarding the treatment plan was provided. All questions were answered. The patient expressed understanding and agreement with the above treatment plan. The patient is aware they should contact our office by phone for worsening of their current condition or the appearance of new urologic symptoms. Compliance is encouraged with any medications and followup testing that is ordered. It is a privilege to participate in the urologic care of your patient. If you have any questions or concerns regarding treatment for the above conditions, or other urologic issues, please do not hesitate to contact me. The office telephone contact is [phone]. Sincerely, Dr Brett Ruvalcaba MD, [facility] - Urology Compassionate Specialist Care for the Genitourinary System Coding Level of Care Code Est Pt Level 4 (23598) Add On Problem Visit Only Diagnoses BPH (benign prostatic hyperplasia) N40.0 CPT Codes Post Residual Void - PVR CPT Code: 90202-Efmv Void Residual by ultrasound ([id number])
== END 2025-10-09 10:46 | disposition home or self-care (01) ==
LOC: HO.HUSH 10:04
PROVIDERS: PCP Internal Medicine; Visit Provider Urology
DX: N40.0 Benign prostatic hyperplasia without lower urinary tract symptoms (principal)
CPT/HCPCS: 99214; G2211

== ENCOUNTER → 2025-10-09 10:04 | Outpatient (BNVA) | payer OTHER, SELFPAY | PROVIDERS: PCP Internal Medicine; Visit Provider Urology | DX: N40.0 Benign prostatic hyperplasia without lower urinary tract symptoms (principal) | CPT/HCPCS: 51798; 99212 ==